=== PATIENT | female | born 1965 | race Caucasian/White ===

== ENCOUNTER 2017-08-19 16:05 | Emergency (ER) | payer MEDICAID, SELFPAY ==
[2017-08-19 16:07] VITALS: BP 115/86; PULSE 101; RESP 16; TEMP 36.9; O2SAT 99; BMI 28.6
--- NOTE | 2017-08-19 17:08 | ED.VISSUMM ---
- ER Visit Summary Date of Service: 08/19/17 Chief Complaint: Acute on chronic abdominal pain History of Present Illness: The patient is a 52 F hx of nonalcoholic liver cirrhosis stage IV patient is currently on the [place] transplant list. He states the last week she has had intermittent abdominal pain. She said started when she was down [place] being evaluated for the transplant getting screening labs. Said they are pushing on her abdomen she developed pain since that time for the last week. Associated nausea. She denies any vomiting. Denies diarrhea or melena. Denies fever. Denies any abdominal trauma. She has a history of constipation but says he had a bowel movement yesterday and is currently on medications to correct constipation. She denies any dysuria. Physical Examination: Appearing middle-aged female. Vital signs are stable afebrile. She does not look septic toxic. She is in no acute distress. H EENT exam is unremarkable. Neck nontender no lymphadenopathy. Lungs clear to auscultation bilaterally. Heart regular rate and rhythm no murmur. Abdomen is soft. Nontender nondistended no giving or masses. Normal bowel sounds no peritoneal signs. Moving all 4 extremities. Neurovascular intact. Back exam nontender. Neurologic exam unremarkable. Test Results: BC normal with a white count 6 except for platelet count of 84,000 which is her baseline she is chronic low platelets. Electro lites unremarkable. Normal BUN and creatinine and gap. Liver enzymes unremarkable total bilirubin 1.2. Normal lipase. UA negative. Emergency Department Course and Treatment: Patient complaining of abdominal pain with a very benign exam. She requested something for pain should be given 6 of morphine IV and 4 Zofran. Labs will be obtained. Treatment Plan: Exam at 2019 patient is doing well. Abdomen is benign. She will be discharged home. Explained to her I do not have a specific cause for her abdominal pain. I do not feel she needs any imaging. She has had recent CTs were unremarkable. Disposition: discharge Impression: Acute abdominal pain uncertain etiology History of nonalcoholic liver cirrhosis Chronic Thrombocytopenia This note was generated with [employer] dictation software. It may contain incorrect words, spelling, and punctuation that were not noted in review of the chart prior to signing ED Disposition - Plan for ED Patient: Chief Complaint: Abd Pain Referrals: Anna Meza NP-C [Primary Care Provider] -
--- NOTE | 2017-08-19 17:11 | ED.DCSUM_ITS ---
- ER Visit Summary Date of Service: 08/19/17 Chief Complaint: Acute on chronic abdominal pain History of Present Illness: The patient is a 52 F hx of nonalcoholic liver cirrhosis stage IV patient is currently on the [place] transplant list. He states the last week she has had intermittent abdominal pain. She said started when she was down [place] being evaluated for the transplant getting screening labs. Said they are pushing on her abdomen she developed pain since that time for the last week. Associated nausea. She denies any vomiting. Denies diarrhea or melena. Denies fever. Denies any abdominal trauma. She has a history of constipation but says he had a bowel movement yesterday and is currently on medications to correct constipation. She denies any dysuria. Physical Examination: Appearing middle-aged female. Vital signs are stable afebrile. She does not look septic toxic. She is in no acute distress. H EENT exam is unremarkable. Neck nontender no lymphadenopathy. Lungs clear to auscultation bilaterally. Heart regular rate and rhythm no murmur. Abdomen is soft. Nontender nondistended no giving or masses. Normal bowel sounds no peritoneal signs. Moving all 4 extremities. Neurovascular intact. Back exam nontender. Neurologic exam unremarkable. Test Results: BC normal with a white count 6 except for platelet count of 84, 000 which is her baseline she is chronic low platelets. Electro lites unremarkable. Normal BUN and creatinine and gap. Liver enzymes unremarkable total bilirubin 1.2. Normal lipase. UA negative. Emergency Department Course and Treatment: Patient complaining of abdominal pain with a very benign exam. She requested something for pain should be given 6 of morphine IV and 4 Zofran. Labs will be obtained. Treatment Plan: Exam at 2019 patient is doing well. Abdomen is benign. She will be discharged home. Explained to her I do not have a specific cause for her abdominal pain. I do not feel she needs any imaging. She has had recent CTs were unremarkable. Disposition: discharge Impression: Acute abdominal pain uncertain etiology History of nonalcoholic liver cirrhosis Chronic Thrombocytopenia This note was generated with [employer] dictation software. It may contain incorrect words, spelling, and punctuation that were not noted in review of the chart prior to signing ED Disposition - Plan for ED Patient: Chief Complaint: Abd Pain Referrals: Anna Meza NP-C [Primary Care Provider] -
[2017-08-19] MEDS: Ondansetron 4 MG/2 ML Vial IV (17:30)
[2017-08-19 17:35] LABS: Absolute Lymphocyte Count 1.96 X10^3/ul (0.83-4.51); Absolute Neutrophil Count 4.1 X10^3/uL (2.0-7.7); Basophil# 0.02 X10^3/uL; Basophil% 0.3 % (0-1); Eosinophil# 0.06 X10^3/uL; Eosinophils% 0.9 % (0-5); Hematocrit 43.2 % (37-47); Hemoglobin 15.1 g/dl (12.0-15.0); Lymphocyte # 1.96 X10^3/ul (4.0); Lymphocyte % 29.4 % (19-41); Mean Corpuscular Hgb 30.4 pg (27.0-32.0); Mean Corpuscular Volume 86.9 fL (81-99); Mean Platelet Vol. 10.2 fl (6.2-12.0); Monocyte# 0.47 X10^3/uL; Monocyte% 7.1 % (0-10); Neutrophil # 4.14 X10^3/uL (2.7-7.7); Neutrophil % 62.1 % (47-70); Platelet Count 84 K/mm3 (150-450); RBC Distribution Width CV 13.3 % (11.6-14.6); Red Blood Count 4.97 M/mm3 (4.2-5.4); White Blood Count 6.7 K/mm3 (4.4-11.0)
[2017-08-19 17:39] LABS: POSITIVE COUNT NO; POSITIVE DIFFERENTIAL NO; POSITIVE MORPHOLOGY NO
[2017-08-19 17:48] LABS: AST(SGOT) 38 U/L (15-37); Alanine Aminotransfer ALT/SGPT 32 U/L (13-56); Albumin, Serum 3.9 g/dL (3.2-5.0); Alkaline Phosphatase 140 U/L (45-117); Anion Gap 7 (5-15); BUN 4 mg/dL (7-18); BUN/Creat Ratio 7.6 RATIO (10-20); Bilirubin, Direct 0.33 mg/dL (0.00-0.30); Calcium,Total 8.6 mg/dL (8.5-10.1); Chloride 109 mmol/L (98-107); Creatinine, Serum 0.53 mg/dL (0.55-1.02); EST Glomerular Filtration Rate 131 mL/min (>60); Est Glom Filt Rate - Afr Amer 158 mL/min (>60); Estimated Creatinine Clearance 109.66 ml/min; Glucose 81 mg/dL (74-106); Lipase 100 U/L (73-393); Potassium 3.6 mmol/L (3.5-5.1); Protein, Total 7.9 g/dL (6.4-8.2); Sodium Level 142 mmol/L (136-145)
[2017-08-19 17:49] LABS: Bacteria 0 SEEN /hpf (None Seen); Mucous, Urine 0 SEEN /hpf (<or=2+); Red Blood Cells-Urine 0 SEEN /hpf (0-5); White Blood Cells 0 SEEN /hpf (0-5)
[2017-08-19 17:51] LABS: Color, Urine Yellow (Yellow); Glucose, Dipstick Normal (Normal); Ketone-Dipstick Negative (Negative); Leukocyte Esterase-Dipstick Negative /ul (Negative); Nitrite-Dipstick Negative (Negative); Occult Blood-Urine 50 /ul (Negative); Protein-Dipstick Negative (Negative); Specific Gravity, Urine 1.005 (1.002-1.030); Urine Bilirubin Dipstick Negative (Negative); Urine Clarity Clear (Clear); Urine Urobilinogen Normal (Normal)
[2017-08-19 18:21] LABS: Squamous Epithelial Cells - UA 0-5 SEEN /hpf (5-10)
[2017-08-19 19:27] VITALS: BP 126/75; PULSE 100; RESP 18; O2SAT 94
--- NOTE | 2017-08-19 20:22 | DCINST.ED_ITS ---
ED Disposition - Plan for ED Patient: Disposition: Home or Assisted Living Chief Complaint: Abd Pain Instructions: ED Abdominal Pain Unkn Cause Referrals: Anna Meza CELL COVERER-C [Primary Care Provider] - 3-5 Days if not improving
[2017-08-19 20:26] VITALS: BP 113/74; PULSE 95; RESP 18; O2SAT 99
== END 2017-08-19 20:27 | disposition home or self-care (01) ==
PROVIDERS: Emergency Provider Emergency Medicine; Family Provider Nurse Practitioner Primary Care; PCP Nurse Practitioner Primary Care
DX: R10.9 Unspecified abdominal pain (principal); K74.60 Unspecified cirrhosis of liver; D69.6 Thrombocytopenia, unspecified; K59.00 Constipation, unspecified; G40.909 Epilepsy, unspecified, not intractable, without status epilepticus; Z90.49 Acquired absence of other specified parts of digestive tract; Z90.710 Acquired absence of both cervix and uterus; Z79.899 Other long term (current) drug therapy
CPT/HCPCS: 80048; 80076; 81001; 83690; 85025; 96374; 96375; 99283; A4216; J2405

== ENCOUNTER → 2017-08-27 14:53 | Outpatient (CLI) | payer MEDICAID, SELFPAY | PROVIDERS: Family Provider Nurse Practitioner Primary Care; PCP Nurse Practitioner Primary Care | DX: K74.60 Unspecified cirrhosis of liver (principal) | CPT/HCPCS: 36415; 82140 ==

== ENCOUNTER 2017-08-29 17:46 | Inpatient (IN) | payer MEDICAID, SELFPAY ==
[2017-08-29 17:47] VITALS: BP 139/85; PULSE 94; RESP 18; TEMP 36.8; O2SAT 96; BMI 29.5
--- NOTE | 2017-08-29 19:26 | EKG12_ITS ---
Test Reason : ABNORMAL LABS Blood Pressure : / mmHG Vent. Rate : 087 BPM Atrial Rate : 087 BPM P-R Int : 160 ms QRS Dur : 084 ms QT Int : 392 ms P-R-T Axes : 046 -14 033 degrees QTc Int : 471 ms Normal sinus rhythm Inferior infarct , age undetermined Anterolateral infarct , age undetermined Abnormal ECG Confirmed by NELLY HERRERA ([id number]), commissioning editor JOSH CHACKO ([id number] on 09/01/2017 1:30:13 PM Referred By: GLEN KELLER Confirmed By:NELLY HERRERA
--- NOTE | 2017-08-29 19:28 | ED.VISSUMM ---
- ER Visit Summary Date of Service: 08/29/17 Chief Complaint: Confusion History of Present Illness: The patient is a 52 F presenting with confusion, generalized weakness, abnormal ammonia level. Patient states she has been having confusion for the past week. She was on the phone with her neurologist and they recommended an ammonia level. This was drawn yesterday and was elevated. She is on a liver transplant list in [place] for nonalcoholic cirrhosis. She is on lactulose at home. Denies fever. She complains of right upper quadrant abdominal pain and nausea. She states she had blood in her stool yesterday. Physical Examination: Vitals are stable. Patient is afebrile. Alert no acute distress. HEENT exam is unremarkable. Neck is supple. Lungs are clear and equal bilaterally. Heart is regular rate and rhythm. Abdomen is soft nontender nondistended. No rebound or guarding Extremities are unremarkable. Skin is warm and dry. No focal neurologic deficit. Remainder of exam is unremarkable. Emergency Department Course and Treatment: EKG is sinus rhythm rate of 87. CBC is normal except platelets 61. Chemistries normal except for sodium 146, glucose 140. Alk phos 143. INR is 1.4. Ammonia level 104. Tegretol level 7.9. Patient is given morphine Zofran with improvement of her pain. Chest x-ray shows no acute process. She was given lactulose. Discussed with Dr. Valentine for admission. Disposition: Admission Impression: Hepatic encephalopathy This note was generated with [employer] dictation software. It may contain incorrect words, spelling, and punctuation that were not noted in review of the chart prior to signing ED Disposition - Plan for ED Patient: Chief Complaint: Abn Labs Referrals: Anna Meza NP-C [Primary Care Provider] -
--- NOTE | 2017-08-29 19:33 | RAD_ITS ---
STUDY: X-RAY CHEST REASON FOR EXAM: Female, 52 years old. Abdominal pain. TECHNIQUE: Single AP portable view of the chest. COMPARISON: 06/20/2017. FINDINGS: The lungs are clear and expanded. There is no demonstrated pleural abnormality. Normal size heart. Normal mediastinum and erin. Normal visualized pulmonary arteries. Normal visualized aortic arch and descending thoracic aorta. Normal visualized thoracic spine. Normal visualized ribs, clavicles, and shoulders. There is no demonstrated abnormality of the visualized soft tissue structures of the upper abdomen. RAD/Chest 1 View (Portable) IMPRESSION: Normal x-ray examination of the chest. Electronically Signed: Herve Henriquez MD at 19:51 EDT , Service support ,
[2017-08-29 19:47] LABS: Mucous, Urine 0 SEEN /hpf (<or=2+); Red Blood Cells-Urine 0 SEEN /hpf (0-5); White Blood Cells 0 SEEN /hpf (0-5)
[2017-08-29 19:54] LABS: Absolute Lymphocyte Count 1.31 X10^3/ul (0.83-4.51); Absolute Neutrophil Count 3.1 X10^3/uL (2.0-7.7); Basophil# 0.02 X10^3/uL; Basophil% 0.4 % (0-1); Eosinophil# 0.08 X10^3/uL; Eosinophils% 1.7 % (0-5); Hematocrit 40.6 % (37-47); Lymphocyte # 1.31 X10^3/ul (4.0); Lymphocyte % 27.2 % (19-41); Mean Corp Hgb Conc 34.5 g/gl (32-36); Mean Corpuscular Hgb 30.4 pg (27.0-32.0); Mean Corpuscular Volume 88.3 fL (81-99); Mean Platelet Vol. 10.5 fl (6.2-12.0); Monocyte# 0.31 X10^3/uL; Monocyte% 6.4 % (0-10); Neutrophil # 3.09 X10^3/uL (2.7-7.7); Neutrophil % 64.1 % (47-70); POSITIVE COUNT NO; POSITIVE DIFFERENTIAL NO; POSITIVE MORPHOLOGY NO; Platelet Count 61 K/mm3 (150-450); RBC Distribution Width CV 13.2 % (11.6-14.6); RBC Distribution Width SD 42.3 fl (35.1-43.9); White Blood Count 4.8 K/mm3 (4.4-11.0)
[2017-08-29 20:02] LABS: International Normalized Ratio 1.4; Prothrombin Time (Protime)PT. 17.1 SECONDS (11.7-14.9)
[2017-08-29 20:04] LABS: Color, Urine Yellow (Yellow); Glucose, Dipstick Normal (Normal); Ketone-Dipstick Negative (Negative); Leukocyte Esterase-Dipstick Negative /ul (Negative); Nitrite-Dipstick Negative (Negative); Occult Blood-Urine Negative /ul (Negative); Protein-Dipstick Negative (Negative); Specific Gravity, Urine 1.015 (1.002-1.030); Urine Bilirubin Dipstick Negative (Negative); Urine Clarity Sl. Cloudy (Clear); Urine Urobilinogen 4 mg/dl (Normal)
[2017-08-29 20:07] LABS: AST(SGOT) 34 U/L (15-37); Alanine Aminotransfer ALT/SGPT 29 U/L (13-56); Albumin, Serum 3.4 g/dL (3.2-5.0); Alkaline Phosphatase 143 U/L (45-117); Anion Gap 7 (5-15); BUN 5 mg/dL (7-18); BUN/Creat Ratio 6.1 RATIO (10-20); Bilirubin, Direct 0.23 mg/dL (0.00-0.30); Calcium,Total 8.2 mg/dL (8.5-10.1); Chloride 112 mmol/L (98-107); Creatinine, Serum 0.82 mg/dL (0.55-1.02); EST Glomerular Filtration Rate 78 mL/min (>60); Est Glom Filt Rate - Afr Amer 94 mL/min (>60); Estimated Creatinine Clearance 70.88 ml/min; Globulin 3.7 g/dL (2.2-4.2); Glucose 140 mg/dL (74-106); Protein, Total 7.1 g/dL (6.4-8.2); Sodium Level 146 mmol/L (136-145)
[2017-08-29 20:18] LABS: Carbamazepine (Tegretol) 7.9 ug/mL (4.0-12.0)
[2017-08-29 20:30] VITALS: BP 116/71; PULSE 91; O2SAT 94
[2017-08-29 20:54] LABS: Amorphous Sediment 1+; Bacteria RARE /hpf (None Seen); Squamous Epithelial Cells - UA 0-5 SEEN /hpf (5-10)
[2017-08-29 21:02] VITALS: BP 122/78; PULSE 88; RESP 18; TEMP 37.2; O2SAT 94
[2017-08-29] MEDS: Lactulose 20 GM/30 ML UDC PO (21:20)
--- NOTE | 2017-08-29 21:35 | PCM.HP.STD ---
Problem List (1) MARMOLEJO (nonalcoholic steatohepatitis) Status: Chronic (2) Hepatic encephalopathy Status: Acute (3) Migraine Status: Chronic Qualifiers: Migraine type: unspecified Status migrainosus presence: without status migrainosus Intractability: not intractable Qualified Code(s): G43.909 - Migraine, unspecified, not intractable, without status migrainosus (4) Asthma Status: Chronic Qualifiers: Asthma severity: mild Asthma persistence: intermittent Asthma complication type: unspecified Qualified Code(s): J45.20 - Mild intermittent asthma, uncomplicated (5) Hiatal hernia Status: Chronic (6) Esophageal varices Status: Chronic Qualifiers: Esophageal varices type: unspecified type Esophageal varices bleeding: without bleeding Qualified Code(s): I85.00 - Esophageal varices without bleeding Comment: numerous banding (7) Seizures Status: Chronic Comment: last known 11/2016 History of Present Illness Date of Admission: 08/29/17 Chief Complaint: Intermittent confusion, fatigue, malaise. The patient is a 52 y/o F w/ PMHx: Migraines, MARMOLEJO w/ Cirrhosis currently on the transplant list, Esophageal Varices, Chronic Thrombocytopenia secondary to her liver disease, Seizure disorder, Asthma who presents to the [facility] ED on 08/29/17 with history of ongoing acute on chronic RUQ pain, fatigue, malaise, confusion intermittently over the last week, but not improving. She notes recently decreased intake, poor po. She notes over the 2 days BM x 2 per day but sometimes she has had no bowel movement she notes. She notes having been evaluated in the ED but sent home and notes no ammonia was performed at that time and upon follow-up with her physicians they recommended repeat evaluation and NH level. In the ED work-up included T 98.2, HR 94, BP 139/85, RR 18, 96% on RA, CBC w/ WBC 4.8, Hgb 14, Plts 61 without shift, PT 17.1, INR 1.4, BMP w/ Na 146, Chl 112, glucose 140, Alk phos 143, NH 104 (prior baseline 40-60s from records), CXR without acute process. In the ED patient administered NS, morphine, lactulose. Past Medical History Past Medical History (Chronic Problems): Chronic Problems MARMOLEJO (nonalcoholic steatohepatitis) (Chronic) Migraine (Chronic) Asthma (Chronic) Hiatal hernia (Chronic) Esophageal varices (Chronic) numerous banding Seizures (Chronic) last known 11/2016 Allergies diphenhydramine HCl [From Benadryl] Adverse Reaction (Verified 08/29/17 17:49) Other [place] lorazepam [From Ativan] Adverse Reaction (Verified 08/29/17 17:49) Other SHE FEELS LIKE SHE WANTS TO [place]IM[place] prednisone Adverse Reaction (Verified 08/29/17 17:49) Other prochlorperazine edisylate [From Compazine] Adverse Reaction (Verified 08/29/17 17:49) Other [place] prochlorperazine maleate [From Compazine] Adverse Reaction (Verified 08/29/17 17:49) Other CLIMB OUT OF MY BODY promethazine HCl [From Phenergan] Adverse Reaction (Verified 08/29/17 17:49) Other [place] topiramate [From Topamax] Adverse Reaction (Verified 08/29/17 17:49) Other tramadol Adverse Reaction (Verified 08/29/17 17:49) Other feels like going to climb rose Home Medications: Ambulatory Orders Medication Instructions Recorded Carbamazepine 200 mg PO BID 12/27/14 Ondansetron [Zofran Odt] 4 mg PO Q8H PRN PRN 12/27/14 Sumatriptan Succinate [Imitrex] 100 mg PO BID PRN PRN 15 Citalopram [Celexa] 40 mg PO DAILY 07/29/16 Albuterol Sulfate [Proventil Hfa] 1 - 2 puff IH Q2H PRN PRN 01/17/17 Mometasone/Formoterol [Dulera 200 2 puff INHALATION QHS 01/17/17 Mcg/5 Mcg Inhaler] Rifaximin [Xifaxan] 550 mg PO DAILY 05/04/17 Lactulose [Chronulac] 30 ml PO BID 06/20/17 Temazepam [Restoril] 15 mg PO QHS PRN PRN #30 capsule 06/25/17 Clonazepam [Klonopin] 2 mg PO BID 08/19/17 Linacolotide [Linzess] 145 mcg PO DAILY 08/29/17 Omeprazole [Prilosec] 20 mg PO DAILY 03/16/18 Surgical History: - - cholecystectomy, partial hysterectomy, right shoulder replacement secondary to fall secondary to seizure, bilateral knee arthroscopic Psychiatric History: Anxiety, Depression [employer]ED [employer] GRADER History: No pertinent [employer]ESS[employer] POUL[employer] GRADER history Lives: Spouse/ Significant Other Smoking Status: Never smoker Tobacco Use: Non-smoker Alcohol: None Drugs: None - *Family History Maternal History Items: No pertinent history Paternal History Items: - - Liver disease, alcoholism Review of Systems Constitutional: Reports: Anorexia, Malaise, Weakness, Fatigue. Denies: Chills, Fever, Weight Change HEENT: Denies: Head Aches, Sinus Congestion, Sinus Drainage Cardiovascular: Denies: Chest Pain, Palpitations Respiratory: Denies: Cough, Shortness of breath at rest, Sputum production Gastrointestinal: Reports: Abdominal Pain, Constipation, Nausea. Denies: Vomiting Genitourinary: Denies: Dysuria Musculoskeletal: Reports: Back Pain. Denies: Joint Pain, Joint Tenderness Skin: Denies: Rash, Wounds Neurological: Reports: Confusion. Denies: Focal weakness, Numbness, Tingling Psychiatric: Denies: Anxiety, Depression, Homicidal Ideations, Suicidal Ideations Hematologic/ Lymphatic: Reports: Anemia, Easy Bruising, Easy Bleeding VTE Information - Inpt Only VTE Present on Admission: No VTE Mechan Device Prophylaxis: SCD's VTE Pharm Prophylaxis ordered?: No Reason prophylaxis not ordered:: Medical Contraindication Subjective: Seated upright in the ED bed, NAD, notes fatigued. Objective: Physical Examination: General: awake, alert, oriented to self, place, recent events but notes has been intermittently confused, cooperative, seated upright in bed in no apparent distress, fatigued appearance. Skin: normal color, turgor, no icterus, cyanosis. HEENT: AT/NC, EOMI, PERRLA, dry MM, no carotid bruits or JVD noted. Lungs: CTA bilaterally, moderate effort, mild decrease BL bases, no rales, ronchi or wheezing. Heart: Regular rate and rhythm; no gallop, rub audible. Abdomen: soft, mild RUQ TTP w/ deep palpation, no rebound or guarding, ND, mildly hyperative BS, + HSM. Extremities: no cyanosis, clubbing, or edema. Neurological: patient awake, alert, oriented as noted; cognitive function appears intact, but from description decreased from baseline; pupils equally reactive to light and accomodation; cranial nerves II-XII grossly normal, moving all 4 extremities, no focal deficits, strength moderately globally decreased. Psychiatric: affect appears fatigued, no acute evidence of depressive or anxiety feelings. - Physical Exam Vital Signs Temp Pulse Resp BP Pulse Ox 99.0 F 88 18 122/78 H 94 08/29/17 21:02 08/29/17 21:02 08/29/17 21:02 08/29/17 21:02 08/29/17 21:02 Oxygen Delivery Method Room Air Weight: 171 lb 11.841 oz Body Mass Index (BMI) 29.5 Microbiology Past 72 Hours 08/29/17 20:40 Stool Occult Blood (PINO) - Final Stool Laboratory Tests Past 24 Hrs 08/29/17 08/29/17 08/29/17 19:12 19:45 19:45 WBC 4.8 RBC 4.60 Hgb 14.0 Hct 40.6 MCV 88.3 MCH 30.4 MCHC 34.5 RDW 13.2 RDW Differential 42.3 Plt Count 61 L MPV 10.5 Immature Gran % (Auto) 0.200 Neut % (Auto) 64.1 Lymph % (Auto) 27.2 [place] % (Auto) 6.4 Eos % (Auto) 1.7 Baso % (Auto) 0.4 Absolute Neuts (auto) 3.1 Absolute Lymphs (auto) 1.31 Total Counted Not Reportable PT 17.1 H INR 1.4 Sodium Potassium Chloride Carbon Dioxide Anion Gap BUN Creatinine Estim Creat Clear Calc Est GFR (MDRD) Af Amer Est GFR (MDRD) Non-Af BUN/Creatinine Ratio Glucose Calcium Total Bilirubin Direct Bilirubin AST ALT Alkaline Phosphatase Ammonia Total Protein Albumin Globulin Urine Color Yellow Urine Clarity Sl. Cloudy Urine pH 8.0 Ur Specific [place] 1.015 Urine Protein Negative Urine Glucose (UA) Normal Urine Ketones Negative Urine Occult Blood Negative Urine Nitrite Negative Urine Bilirubin Negative Urine Urobilinogen 4 H Ur Leukocyte Esterase Negative Urine RBC 0 SEEN Urine WBC 0 SEEN Ur Squamous Epith Cells 0-5 SEEN Amorphous Sediment 1+ Urine Bacteria RARE Urine Mucus 0 SEEN Carbamazepine 08/29/17 08/29/17 08/29/17 19:45 19:45 19:45 WBC RBC Hgb Hct MCV MCH MCHC RDW RDW Differential Plt Count MPV Immature Gran % (Auto) Neut % (Auto) Lymph % (Auto) [place] % (Auto) Eos % (Auto) Baso % (Auto) Absolute Neuts (auto) Absolute Lymphs (auto) Total Counted PT INR Sodium 146 H Potassium 4.0 Chloride 112 H Carbon Dioxide 27.0 Anion Gap 7 BUN 5 L Creatinine 0.82 Estim Creat Clear Calc 70.88 Est GFR (MDRD) Af Amer 94 Est GFR (MDRD) Non-Af 78 BUN/Creatinine Ratio 6.1 L Glucose 140 H Calcium 8.2 L Total Bilirubin 0.90 Direct Bilirubin 0.23 AST 34 ALT 29 Alkaline Phosphatase 143 H Ammonia 104.0 H Total Protein 7.1 Albumin 3.4 Globulin 3.7 Urine Color Urine Clarity Urine pH Ur Specific [place] Urine Protein Urine Glucose (UA) Urine Ketones Urine Occult Blood Urine Nitrite Urine Bilirubin Urine Urobilinogen Ur Leukocyte Esterase Urine RBC Urine WBC Ur Squamous Epith Cells Amorphous Sediment Urine Bacteria Urine Mucus Carbamazepine 7.9 Assessment/Plan The patient is a 52 y/o F w/ PMHx: Migraines, MARMOLEJO w/ Cirrhosis currently on the transplant list, Esophageal Varices, Chronic Thrombocytopenia secondary to her liver disease, Seizure disorder, Asthma who presents to the [facility] ED on 08/29/17 with history of ongoing acute on chronic RUQ pain, fatigue, malaise, confusion intermittently over the last week, but not improving. She notes recently decreased intake, poor oral intake. (1) Hepatic encephalopathy: In the ED work-up included T 98.2, HR 94, BP 139/85, RR 18, 96% on RA, CBC w/ WBC 4.8, Hgb 14, Plts 61 without shift, PT 17.1, INR 1.4, BMP w/ Na 146, Chl 112, glucose 140, Alk phos 143, NH 104 (prior baseline 40-60s from records), CXR without acute process. In the ED patient administered NS, morphine, lactulose. Will admit to [facility], maintain on IVFs, encourage appropriate oral intake, administer aggressive lactulose 30 gm q 6 hours with continued linzess, trend CMP, NH level, maintain on fall precautions, continue home regimen xifaxan. (2) MARMOLEJO, Cirrhosis w/ Hx Esophageal varices: Currently on the Transplant list, following with GI in [place], encouraged continued close evaluation with her team. Chronic ongoing RUQ pain, similar to baseline. Continue treatment #1 as noted. (3) Seizure disorder: Continue home carbamazepine regimen. (4) Chronic Asthma: ATC duonebs, PRN albuterol, HOB, IS parameters. (5) Chronic Thrombocytopenia: Admission CBC w/ plts 61, stable, defer chemoprophylaxis. (6) GERD: PPI. (7) DVT Prophylaxis: SCDs, defer chemoprophylaxis given liver disease w/ low plts. Code Visit Inpatient E&M: 53208 Init Hosp L3
[2017-08-29 22:31] VITALS: BMI 28.3
[2017-08-29 22:59] VITALS: BMI 28.3
[2017-08-29 23:06] LABS: Magnesium 2.1 mg/dL (1.6-2.6); Phosphorus 3.2 mg/dL (2.5-4.9)
[2017-08-29 23:34] VITALS: BP 123/70; PULSE 81; RESP 18; TEMP 36.8; O2SAT 97
[2017-08-29] MEDS: 0.9% Normal Saline 1,000 ML 100 ML IV (23:51)
[2017-08-29] MEDS: Ondansetron 4 MG/2 ML Vial IV (23:52)
[2017-08-29] MEDS: clonazePAM 1 MG Tablet 2 MG PO (23:52)
[2017-08-29] MEDS: carBAMazepine 200 MG Tablet PO (23:53)
[2017-08-29] MEDS: Citalopram 40 MG TABLET PO (23:53)
[2017-08-29] MEDS: rifAXIMin 550 MG Tablet PO (23:53)
[2017-08-30] VITALS (15 sets, daily range): BP systolic 112–129; BP diastolic 65–78; PULSE 56–103; RESP 16–29; TEMP 36.7–37.1; O2SAT 94–98
[2017-08-30] MEDS: Pantoprazole Sodium 20 MG Tablet PO ×2 (00:33→20:52)
[2017-08-30] MEDS: Rizatriptan Benzoate 10 MG Tablet PO (04:57)
[2017-08-30] MEDS: Lactulose 20 GM/30 ML UDC 30 GM PO ×4 (05:52→23:57)
[2017-08-30 06:48] LABS: Absolute Neutrophil Count 3.9 X10^3/uL (2.0-7.7); Basophil# 0.03 X10^3/uL; Basophil% 0.5 % (0-1); Eosinophil# 0.08 X10^3/uL; Eosinophils% 1.4 % (0-5); Hematocrit 39.4 % (37-47); Hemoglobin 13.6 g/dl (12.0-15.0); Lymphocyte % 23.7 % (19-41); Mean Corp Hgb Conc 34.5 g/gl (32-36); Mean Corpuscular Hgb 30.6 pg (27.0-32.0); Mean Corpuscular Volume 88.5 fL (81-99); Mean Platelet Vol. 10.1 fl (6.2-12.0); Monocyte# 0.49 X10^3/uL; Monocyte% 8.3 % (0-10); Neutrophil % 66.1 % (47-70); POSITIVE COUNT NO; POSITIVE DIFFERENTIAL NO; POSITIVE MORPHOLOGY NO; Platelet Count 66 K/mm3 (150-450); RBC Distribution Width CV 13.1 % (11.6-14.6); Red Blood Count 4.45 M/mm3 (4.2-5.4); White Blood Count 5.9 K/mm3 (4.4-11.0)
[2017-08-30 07:11] LABS: ALB/GLOB Ratio 0.9 RATIO (0.9-2.4); AST(SGOT) 44 U/L (15-37); Alanine Aminotransfer ALT/SGPT 31 U/L (13-56); Albumin, Serum 3.1 g/dL (3.2-5.0); Alkaline Phosphatase 126 U/L (45-117); Anion Gap 7 (5-15); BUN 4 mg/dL (7-18); BUN/Creat Ratio 6.9 RATIO (10-20); Calcium,Total 7.9 mg/dL (8.5-10.1); Chloride 109 mmol/L (98-107); Creatinine, Serum 0.58 mg/dL (0.55-1.02); EST Glomerular Filtration Rate 117 mL/min (>60); Est Glom Filt Rate - Afr Amer 142 mL/min (>60); Globulin 3.4 g/dL (2.2-4.2); Glucose 117 mg/dL (74-106); Potassium 3.7 mmol/L (3.5-5.1); Protein, Total 6.5 g/dL (6.4-8.2); Sodium Level 142 mmol/L (136-145)
[2017-08-30] MEDS: Ondansetron 4 MG/2 ML Vial IV (07:33)
[2017-08-30] MEDS: HYDROcodone Bitartrate/Apap 5/325 Tablet PO ×2 (10:23→16:44)
[2017-08-30] MEDS: clonazePAM 1 MG Tablet 2 MG PO (10:26)
[2017-08-30] MEDS: 0.9% Normal Saline 1,000 ML 100 ML IV ×2 (10:28→20:14)
--- NOTE | 2017-08-30 10:39 | CASEMGMT ---
See RN CM Assessment Link. DC Plan Home. Miquel CLEMENTN RN ACM
--- NOTE | 2017-08-30 12:59 | CASEMGMT ---
SW received a referral to see patient for mental health resources. SW stopped by to see patient and she was sleeping. She did not wake when her name was called. SW will stop by again later as time allows. Belkis ARROYO MSW
[2017-08-30] MEDS: Ipratropium/Albuterol Sulfate 3 ML AMPUL.NEB INHALATION ×2 (13:20→19:50)
--- NOTE | 2017-08-30 15:36 | CASEMGMT ---
SW met with patient. Introduced self and role at [facility]. SW spent an extensive amount of time in room with patient listening and providing emotional support and encouragement. Belkis ARROYO MSW
--- NOTE | 2017-08-30 18:06 | PCM.PROGNOTE ---
Subjective: She is c/o persisting headache and abdominal pain. She states that she had no bowel movements for past 3 days, and had not had bms so far. She is also c/o persisting headache. - Physical Exam General: Alert, Oriented x3, Cooperative HEENT: Atraumatic, PERRLA, Normocephalic Oral: Moist Mucosa, No Gingival or Mucosal Lesions/ Ulcerations, - - ?geographic tongue. Neck: Supple, No JVD Lungs: Clear to auscultation, Normal air movement, No rhonchi, No wheeze, No rales Cardiovascular: Regular rate, Regular Rhythm, Normal S1, Normal S2, No murmurs, No Ectopic Activity Abdomen: Bowel Sounds Present, Soft, Non Tender, Non-Distended, No Hepato-splenomegaly Extremities: No clubbing, No cyanosis, No edema Skin: No rashes, No breakdown Musculoskeletal: No Tenderness to Palpation of Joints or Extremities, No Muscle Wasting Lymphatic: No Cervical, Supraclavicular, or Inguinal Adenopathy Neurological: Cranial nerves II-XII grossly intact, Neuro grossly intact Psych/Mental Status: Normal Affect Vital Signs Temp Pulse Resp BP Pulse Ox 98.0 F 98 17 113/65 95 08/30/17 13:09 08/30/17 16:37 08/30/17 13:39 08/30/17 13:09 08/30/17 13:09 Oxygen Delivery Method Room Air Weight: 154 lb 5.177 oz Body Mass Index (BMI) 28.3 Intake and Output for Last 24 Hours 08/28/17 08/29/17 08/30/17 23:59 23:59 23:59 Intake Total 2870 / 2870 Balance 2870 / 2870 Laboratory Tests Past 24 Hrs 08/30/17 08/30/17 08/30/17 06:35 06:35 06:35 WBC 5.9 RBC 4.45 Hgb 13.6 Hct 39.4 MCV 88.5 MCH 30.6 MCHC 34.5 RDW 13.1 RDW Differential 42.0 Plt Count 66 L MPV 10.1 Immature Gran % (Auto) 0.000 Neut % (Auto) 66.1 Lymph % (Auto) 23.7 [place] % (Auto) 8.3 Eos % (Auto) 1.4 Baso % (Auto) 0.5 Absolute Neuts (auto) 3.9 Absolute Lymphs (auto) 1.40 Total Counted Not Reportable Sodium 142 Potassium 3.7 Chloride 109 H Carbon Dioxide 26.0 Anion Gap 7 BUN 4 L Creatinine 0.58 Estim Creat Clear Calc 100.20 Est GFR (MDRD) Af Amer 142 Est GFR (MDRD) Non-Af 117 BUN/Creatinine Ratio 6.9 L Glucose 117 H Calcium 7.9 L Total Bilirubin 0.90 AST 44 H ALT 31 Alkaline Phosphatase 126 H Ammonia 65.0 H Total Protein 6.5 Albumin 3.1 L Globulin 3.4 Albumin/Globulin Ratio 0.9 Diagnostic Data Chest X-Ray 08/29/17 19:33 IMPRESSION: Normal x-ray examination of the chest. Electronically Signed: Herve Henriquez MD at 19:51 EDT , Service support , Medical Necessity - Tobacco Use Smoking Status: Never smoker Tobacco Use: Non-smoker Assessment/Plan Patient is a 52 years old female with history of MARMOLEJO with cirrhosis, currently on the transplant list, presents with persisting lethargy and confusion for one week. Ammonia level was 104, where her baseline is around 60. She states that she has been eating fair, but no bowel movements since 08/28. She had hematochezia on the day, which was her last bowel movement. Hgb is stable, and did not have any more episodes of hematochezia. She is having persisting right upper abdominal pain for a month, and she started to have headache on the day of admission, with history of migraine. #1 Mild hepatic encephalopathy. She was on lactulose 25 gram bid, increased to Q6H. Ammonia level improved to 65 on the following day. Increase rifaximin to bid from qhs. Continue. Continue current lactulose dosage. Repeat NH4 level in AM. #2 headache with history of migraine. Maxalt was given here, with no improvement of headache. OK to continue opioid analgesics prn. Change [place] to oxycodone IR to avoid acetaminophen. #3 Cirrhosis with MARMOLEJO. She has history of esophageal varices, possibly with varices of rectum. She did not have any more bleeding episodes. Continue to monitor CBC. #4 Thrombocytopenia. With cirrhosis. Platelet stable at 60's. Continue to monitor. #5 Seizure disorder. Continue carbamazepine. #6 Abnormality of tongue. It is more consistent with geographic tongue with minimal discomfort and no signs of thrush. VTE prophylaxis: SCD only for low platelets counts. GI prophylaxis: PPI po. She is full code. Disposition: Home in 2 to 3 days. Code Visit Inpatient E&M: 12916 Subs Hosp L3
--- NOTE | 2017-08-30 18:17 | PN_ITS ---
Subjective: She is c/o persisting headache and abdominal pain. She states that she had no bowel movements for past 3 days, and had not had bms so far. She is also c/o persisting headache. - Physical Exam General: Alert, Oriented x3, Cooperative HEENT: Atraumatic, PERRLA, Normocephalic Oral: Moist Mucosa, No Gingival or Mucosal Lesions/ Ulcerations, - - ? geographic tongue. Neck: Supple, No JVD Lungs: Clear to auscultation, Normal air movement, No rhonchi, No wheeze, No rales Cardiovascular: Regular rate, Regular Rhythm, Normal S1, Normal S2, No murmurs, No Ectopic Activity Abdomen: Bowel Sounds Present, Soft, Non Tender, Non-Distended, No Hepato- splenomegaly Extremities: No clubbing, No cyanosis, No edema Skin: No rashes, No breakdown Musculoskeletal: No Tenderness to Palpation of Joints or Extremities, No Muscle Wasting Lymphatic: No Cervical, Supraclavicular, or Inguinal Adenopathy Neurological: Cranial nerves II-XII grossly intact, Neuro grossly intact Psych/Mental Status: Normal Affect Vital Signs Temp Pulse Resp BP Pulse Ox 98.0 F 98 17 113/65 95 08/30/17 13:09 08/30/17 16:37 08/30/17 13:39 08/30/17 13:09 08/30/17 13:09 Oxygen Delivery Method Room Air Weight: 154 lb 5.177 oz Body Mass Index (BMI) 28.3 Intake and Output for Last 24 Hours 08/28/17 08/29/17 08/30/17 23:59 23:59 23:59 Intake Total 2870 / 2870 Balance 2870 / 2870 Laboratory Tests Past 24 Hrs 08/30/17 08/30/17 08/30/17 06:35 06:35 06:35 WBC 5.9 RBC 4.45 Hgb 13.6 Hct 39.4 MCV 88.5 MCH 30.6 MCHC 34.5 RDW 13.1 RDW Differential 42.0 Plt Count 66 L MPV 10.1 Immature Gran % (Auto) 0.000 Neut % (Auto) 66.1 Lymph % (Auto) 23.7 [place] % (Auto) 8.3 Eos % (Auto) 1.4 Baso % (Auto) 0.5 Absolute Neuts (auto) 3.9 Absolute Lymphs (auto) 1.40 Total Counted Not Reportable Sodium 142 Potassium 3.7 Chloride 109 H Carbon Dioxide 26.0 Anion Gap 7 BUN 4 L Creatinine 0.58 Estim Creat Clear Calc 100.20 Est GFR (MDRD) Af Amer 142 Est GFR (MDRD) Non-Af 117 BUN/Creatinine Ratio 6.9 L Glucose 117 H Calcium 7.9 L Total Bilirubin 0.90 AST 44 H ALT 31 Alkaline Phosphatase 126 H Ammonia 65.0 H Total Protein 6.5 Albumin 3.1 L Globulin 3.4 Albumin/Globulin Ratio 0.9 Diagnostic Data Chest X-Ray 08/29/17 19:33 IMPRESSION: Normal x-ray examination of the chest. Electronically Signed: Herve Henriquez MD at 19:51 EDT , Service support , Medical Necessity - Tobacco Use Smoking Status: Never smoker Tobacco Use: Non-smoker Assessment/Plan Patient is a 52 years old female with history of MARMOLEJO with cirrhosis, currently on the transplant list, presents with persisting lethargy and confusion for one week. Ammonia level was 104, where her baseline is around 60. She states that she has been eating fair, but no bowel movements since . She had hematochezia on the day, which was her last bowel movement. Hgb is stable, and did not have any more episodes of hematochezia. She is having persisting right upper abdominal pain for a month, and she started to have headache on the day of admission, with history of migraine. #1 Mild hepatic encephalopathy. She was on lactulose 25 gram bid, increased to Q6H. Ammonia level improved to 65 on the following day. Increase rifaximin to bid from qhs. Continue. Continue current lactulose dosage. Repeat NH4 level in AM. #2 headache with history of migraine. Maxalt was given here, with no improvement of headache. OK to continue opioid analgesics prn. Change [place] to oxycodone IR to avoid acetaminophen. #3 Cirrhosis with MARMOLEJO. She has history of esophageal varices, possibly with varices of rectum. She did not have any more bleeding episodes. Continue to monitor CBC. #4 Thrombocytopenia. With cirrhosis. Platelet stable at 60's. Continue to monitor. #5 Seizure disorder. Continue carbamazepine. #6 Abnormality of tongue. It is more consistent with geographic tongue with minimal discomfort and no signs of thrush. VTE prophylaxis: SCD only for low platelets counts. GI prophylaxis: PPI po. She is full code. Disposition: Home in 2 to 3 days. Code Visit Inpatient E&M: 07589 Subs Hosp L3
[2017-08-30] MEDS: oxyCODONE 5 MG Tablet PO (20:50)
[2017-08-30] MEDS: rifAXIMin 550 MG Tablet PO (20:51)
[2017-08-30] MEDS: carBAMazepine 200 MG Tablet 400 MG PO (20:51)
[2017-08-30] MEDS: clonazePAM 1 MG Tablet PO (20:52)
[2017-08-30] MEDS: LINACLOTIDE 145 MCG CAPSULE PO (20:52)
[2017-08-30] MEDS: Citalopram 40 MG TABLET PO (20:54)
[2017-08-31] VITALS (12 sets, daily range): BP systolic 102–130; BP diastolic 58–68; PULSE 68–109; RESP 16–19; TEMP 36.7–37.3; O2SAT 94–97
[2017-08-31] MEDS: oxyCODONE 5 MG Tablet PO ×3 (00:43→22:50)
[2017-08-31] MEDS: Rizatriptan Benzoate 10 MG Tablet PO (02:05)
[2017-08-31] MEDS: Temazepam 15 MG Capsule PO (02:05)
--- NOTE | 2017-08-31 04:14 | EKG12_ITS ---
Test Reason : CP Blood Pressure : / mmHG Vent. Rate : 097 BPM Atrial Rate : 097 BPM P-R Int : 170 ms QRS Dur : 084 ms QT Int : 370 ms P-R-T Axes : 014 -07 024 degrees QTc Int : 469 ms Normal sinus rhythm Inferior infarct , age undetermined Abnormal ECG When compared with ECG of 31-AUG-2017 04:12, MANUAL COMPARISON REQUIRED, DATA IS UNCONFIRMED Confirmed by MOE BROOKS, SHLOMO ([id number]), international editorial producer JOSH CHACKO ([id number]) on 09/11/2017 4:00:51 PM Referred By: GLEN KELLER Confirmed By:SHLOMO ROSA MD
[2017-08-31] MEDS: 0.9% Normal Saline 1,000 ML 100 ML IV (05:19)
[2017-08-31] MEDS: rifAXIMin 550 MG Tablet PO ×2 (09:23→22:50)
[2017-08-31] MEDS: Lactulose 20 GM/30 ML UDC 30 GM PO ×2 (11:40→22:50)
[2017-08-31] MEDS: Ipratropium/Albuterol Sulfate 3 ML AMPUL.NEB INHALATION ×2 (12:03→19:08)
--- NOTE | 2017-08-31 13:06 | PCM.PROGNOTE ---
Subjective: She is c/o intractable migraine headache, behind her eyes. Analgesics and Maxalt have not been effective so far. She is also c/o palpitation, woke up during the night. EKG was done, unremarkable. She had BM's since last night. - Physical Exam General: Alert, Oriented x3 HEENT: Atraumatic, PERRLA, Normocephalic Oral: Moist Mucosa, No Gingival or Mucosal Lesions/ Ulcerations Neck: Supple, No JVD, Negative Carotid Bruits, Negative Hepatojugular Reflux, No Nodes, No Nuchal Rigidity Lungs: Clear to auscultation, Normal air movement, No rhonchi, No wheeze, No rales Cardiovascular: Regular rate, Regular Rhythm, Normal S1, Normal S2, No murmurs, No Ectopic Activity Abdomen: Bowel Sounds Present, Soft, Non Tender, Non-Distended, No Hepato-splenomegaly Extremities: No clubbing, No cyanosis, No edema Skin: No rashes, No breakdown Musculoskeletal: No Tenderness to Palpation of Joints or Extremities, No Muscle Wasting Lymphatic: No Cervical, Supraclavicular, or Inguinal Adenopathy Neurological: Cranial nerves II-XII grossly intact, Neuro grossly intact Psych/Mental Status: Anxious Vital Signs Temp Pulse Resp BP Pulse Ox 98.7 F 109 H 19 H 110/58 L 95 08/31/17 09:14 08/31/17 12:24 08/31/17 11:57 08/31/17 09:14 08/31/17 09:14 Oxygen Delivery Method Room Air Weight: 169 lb 8 oz Body Mass Index (BMI) 28.3 Intake and Output for Last 24 Hours 08/29/17 08/30/17 08/31/17 23:59 23:59 23:59 Intake Total 4379 / 4379 1838 / 1838 Output Total 300 / 300 Balance 4379 / 4379 1538 / 1538 Diagnostic Data Chest X-Ray 08/29/17 19:33 IMPRESSION: Normal x-ray examination of the chest. Electronically Signed: Herve Henriquez MD at 19:51 EDT , Service support , Medical Necessity - Tobacco Use Smoking Status: Never smoker Tobacco Use: Non-smoker Assessment/Plan Patient is a 52 years old female with history of MARMOLEJO with cirrhosis, currently on the transplant list, presents with persisting lethargy and confusion for one week. Ammonia level was 104, where her baseline is around 60. She states that she has been eating fair, but no bowel movements since 08/28. She had hematochezia on the day, which was her last bowel movement. Hgb is stable, and did not have any more episodes of hematochezia. She is having persisting right upper abdominal pain for a month, and she started to have headache on the day of admission, with history of migraine. #1 Mild hepatic encephalopathy. She was on lactulose 25 gram bid, increased to Q6H. Ammonia level improved to 65 on the following day, however, she was reporting no bowel movements until evening of 08/30. She is having frequent bowel movements since then. Decrease Lactulose to bid (08/31). Increase rifaximin to bid from qhs. Continue. Repeat NH4 level in AM. #2 Intractable headache with migraine. Maxalt was given here, with no improvement of headache. OK to continue opioid analgesics prn. Change [place] to oxycodone IR to avoid acetaminophen. Start DHE-45 infusion and Reglan 10 mg IV x 1. Continue Zofran prn if nausea develops. #3 Cirrhosis with MARMOLEJO. She has history of esophageal varices, possibly with varices of rectum. She did not have any more bleeding episodes. Continue to monitor CBC. #4 Thrombocytopenia. With cirrhosis. Platelet stable at 60's. Continue to monitor. #5 Seizure disorder. Continue carbamazepine. #6 Abnormality of tongue. It is more consistent with geographic tongue with minimal discomfort and no signs of thrush. VTE prophylaxis: SCD only for low platelets counts. GI prophylaxis: PPI po. She is full code. Disposition: Home in 2 to 3 days. Code Visit Inpatient E&M: 99748 Subs Hosp L3
--- NOTE | 2017-08-31 13:10 | CT_ITS ---
STUDY: CT BRAIN WITHOUT CONTRAST REASON FOR EXAM: Female, 52 years old. Headache RADIATION DOSAGE (If Supplied By Facility): CTDIvol = ( 44.99 ) mGy, DLP = ( 728.62 ) mGycm TECHNIQUE: Transaxial CT imaging of the brain was performed without administration of intravenous contrast material. Sagittal and coronal images reformatted. Individualized dose optimization techniques were used for this CT. COMPARISON: 07/21/2015. FINDINGS: Normal soft tissue structures. Normal calvarium. Normal size ventricles and extra-axial spaces for the patient's age. Normal white matter tracts of the cerebral hemispheres. Normal basal ganglia and thalami. Normal brainstem. Normal cerebellum. There is no intracranial hemorrhage. There are no findings of an acute ischemic infarction. Normal visualized paranasal sinuses. CT/Brain/Head without Contrast IMPRESSION: No acute intracranial process. Electronically Signed: Howie Wong DO at 15:01 EDT , Service support ,
--- NOTE | 2017-08-31 13:15 | PN_ITS ---
Subjective: She is c/o intractable migraine headache, behind her eyes. Analgesics and Maxalt have not been effective so far. She is also c/o palpitation, woke up during the night. EKG was done, unremarkable. She had BM's since last night. - Physical Exam General: Alert, Oriented x3 HEENT: Atraumatic, PERRLA, Normocephalic Oral: Moist Mucosa, No Gingival or Mucosal Lesions/ Ulcerations Neck: Supple, No JVD, Negative Carotid Bruits, Negative Hepatojugular Reflux, No Nodes, No Nuchal Rigidity Lungs: Clear to auscultation, Normal air movement, No rhonchi, No wheeze, No rales Cardiovascular: Regular rate, Regular Rhythm, Normal S1, Normal S2, No murmurs, No Ectopic Activity Abdomen: Bowel Sounds Present, Soft, Non Tender, Non-Distended, No Hepato- splenomegaly Extremities: No clubbing, No cyanosis, No edema Skin: No rashes, No breakdown Musculoskeletal: No Tenderness to Palpation of Joints or Extremities, No Muscle Wasting Lymphatic: No Cervical, Supraclavicular, or Inguinal Adenopathy Neurological: Cranial nerves II-XII grossly intact, Neuro grossly intact Psych/Mental Status: Anxious Vital Signs Temp Pulse Resp BP Pulse Ox 98.7 F 109 H 19 H 110/58 L 95 08/31/17 09:14 08/31/17 12:24 08/31/17 11:57 08/31/17 09:14 08/31/17 09:14 Oxygen Delivery Method Room Air Weight: 169 lb 8 oz Body Mass Index (BMI) 28.3 Intake and Output for Last 24 Hours 08/29/17 08/30/17 08/31/17 23:59 23:59 23:59 Intake Total 4379 / 4379 1838 / 1838 Output Total 300 / 300 Balance 4379 / 4379 1538 / 1538 Diagnostic Data Chest X-Ray 08/29/17 19:33 IMPRESSION: Normal x-ray examination of the chest. Electronically Signed: Herve Henriquez MD at 19:51 EDT , Service support , Medical Necessity - Tobacco Use Smoking Status: Never smoker Tobacco Use: Non-smoker Assessment/Plan Patient is a 52 years old female with history of MARMOLEJO with cirrhosis, currently on the transplant list, presents with persisting lethargy and confusion for one week. Ammonia level was 104, where her baseline is around 60. She states that she has been eating fair, but no bowel movements since . She had hematochezia on the day, which was her last bowel movement. Hgb is stable, and did not have any more episodes of hematochezia. She is having persisting right upper abdominal pain for a month, and she started to have headache on the day of admission, with history of migraine. #1 Mild hepatic encephalopathy. She was on lactulose 25 gram bid, increased to Q6H. Ammonia level improved to 65 on the following day, however, she was reporting no bowel movements until evening of 08/30. She is having frequent bowel movements since then. Decrease Lactulose to bid (08/31). Increase rifaximin to bid from qhs. Continue. Repeat NH4 level in AM. #2 Intractable headache with migraine. Maxalt was given here, with no improvement of headache. OK to continue opioid analgesics prn. Change [place] to oxycodone IR to avoid acetaminophen. Start DHE-45 infusion and Reglan 10 mg IV x 1. Continue Zofran prn if nausea develops. #3 Cirrhosis with MARMOLEJO. She has history of esophageal varices, possibly with varices of rectum. She did not have any more bleeding episodes. Continue to monitor CBC. #4 Thrombocytopenia. With cirrhosis. Platelet stable at 60's. Continue to monitor. #5 Seizure disorder. Continue carbamazepine. #6 Abnormality of tongue. It is more consistent with geographic tongue with minimal discomfort and no signs of thrush. VTE prophylaxis: SCD only for low platelets counts. GI prophylaxis: PPI po. She is full code. Disposition: Home in 2 to 3 days. Code Visit Inpatient E&M: 10060 Subs Hosp L3
[2017-08-31 13:34] LABS: Hemoglobin 12.5 g/dl (12.0-15.0); Mean Corp Hgb Conc 33.8 g/gl (32-36); Mean Corpuscular Volume 88.9 fL (81-99); Mean Platelet Vol. 10.2 fl (6.2-12.0); RBC Distribution Width CV 13.2 % (11.6-14.6); RBC Distribution Width SD 42.6 fl (35.1-43.9); Red Blood Count 4.16 M/mm3 (4.2-5.4); White Blood Count 4.6 K/mm3 (4.4-11.0)
[2017-08-31 13:37] LABS: Platelet Count 48 K/mm3 (150-450); Scan Indicated on CBC? Y/N YES- FLAGS NOTED
[2017-08-31 13:54] LABS: ALB/GLOB Ratio 0.9 RATIO (0.9-2.4); AST(SGOT) 36 U/L (15-37); Alanine Aminotransfer ALT/SGPT 28 U/L (13-56); Albumin, Serum 2.8 g/dL (3.2-5.0); Alkaline Phosphatase 129 U/L (45-117); Anion Gap 8 (5-15); BUN 3 mg/dL (7-18); BUN/Creat Ratio 5.5 RATIO (10-20); Calcium,Total 7.6 mg/dL (8.5-10.1); Chloride 109 mmol/L (98-107); Creatinine, Serum 0.54 mg/dL (0.55-1.02); EST Glomerular Filtration Rate 126 mL/min (>60); Est Glom Filt Rate - Afr Amer 153 mL/min (>60); Estimated Creatinine Clearance 107.63 ml/min; Globulin 3.2 g/dL (2.2-4.2); Glucose 260 mg/dL (74-106); Potassium 3.5 mmol/L (3.5-5.1); Sodium Level 142 mmol/L (136-145)
[2017-08-31 13:57] LABS: Differential Comment SCANNED
--- NOTE | 2017-08-31 14:10 | NURSING ---
DR BENOIT AWARE OF PT'S PLT CT AT 48
[2017-08-31] MEDS: Metoclopramide 10 MG/2 ML Vial IV (14:24)
[2017-08-31] MEDS: 0.9% NaCl Peripheral Flush Adult/Peds IV (14:26)
[2017-08-31] MEDS: Pantoprazole Sodium 20 MG Tablet PO (22:49)
[2017-08-31] MEDS: LINACLOTIDE 145 MCG CAPSULE PO (22:49)
[2017-08-31] MEDS: Citalopram 40 MG TABLET PO (22:49)
[2017-08-31] MEDS: carBAMazepine 200 MG Tablet 400 MG PO (22:49)
[2017-08-31] MEDS: clonazePAM 1 MG Tablet PO (22:49)
[2017-09-01] VITALS (8 sets, daily range): BP systolic 110–120; BP diastolic 61–72; PULSE 85–105; RESP 14–20; TEMP 36.8–37.1; O2SAT 93–98
[2017-09-01] MEDS: Temazepam 15 MG Capsule PO
[2017-09-01] MEDS: Ondansetron 4 MG/2 ML Vial IV (05:03)
[2017-09-01 06:20] LABS: Hematocrit 37.8 % (37-47); Hemoglobin 13.4 g/dl (12.0-15.0); Mean Corp Hgb Conc 35.4 g/gl (32-36); Mean Corpuscular Hgb 31.1 pg (27.0-32.0); Mean Corpuscular Volume 87.7 fL (81-99); Mean Platelet Vol. 10.7 fl (6.2-12.0); Platelet Count 56 K/mm3 (150-450); RBC Distribution Width CV 12.7 % (11.6-14.6); RBC Distribution Width SD 39.5 fl (35.1-43.9); Red Blood Count 4.31 M/mm3 (4.2-5.4); White Blood Count 4.7 K/mm3 (4.4-11.0)
[2017-09-01 06:32] LABS: Anion Gap 8 (5-15); BUN 2 mg/dL (7-18); BUN/Creat Ratio 4.9 RATIO (10-20); Calcium,Total 8.1 mg/dL (8.5-10.1); Chloride 108 mmol/L (98-107); EST Glomerular Filtration Rate 177 mL/min (>60); Est Glom Filt Rate - Afr Amer 214 mL/min (>60); Glucose 102 mg/dL (74-106); Potassium 3.1 mmol/L (3.5-5.1); Sodium Level 141 mmol/L (136-145)
[2017-09-01 06:39] LABS: Scan Indicated on CBC? Y/N NO
[2017-09-01] MEDS: Ipratropium/Albuterol Sulfate 3 ML AMPUL.NEB INHALATION (06:45)
[2017-09-01] MEDS: clonazePAM 1 MG Tablet PO (10:34)
[2017-09-01] MEDS: rifAXIMin 550 MG Tablet PO (10:34)
[2017-09-01] MEDS: Lactulose 20 GM/30 ML UDC 30 GM PO (10:34)
[2017-09-01] MEDS: oxyCODONE 5 MG Tablet PO (10:35)
--- NOTE | 2017-09-01 11:17 | PCM.DC ---
You will use the following diet at home:: Regular Your food should be the consistency of: Regular Your liquids should be the consistency of: Regular/Thin Discharge Activity: Return to Normal Activity Weight Bearing Status: Full weight bearing Allergies/Adverse Reactions: Allergies diphenhydramine HCl [From Benadryl] Adverse Reaction (Verified 08/29/17 17:49) Other [place] lorazepam [From Ativan] Adverse Reaction (Verified 08/29/17 17:49) Other SHE FEELS LIKE SHE WANTS TO [place] prednisone Adverse Reaction (Verified 08/29/17 17:49) Other prochlorperazine edisylate [From Compazine] Adverse Reaction (Verified 08/29/17 17:49) Other [place] prochlorperazine maleate [From Compazine] Adverse Reaction (Verified 08/29/17 17:49) Other CLIMB OUT OF MY BODY promethazine HCl [From Phenergan] Adverse Reaction (Verified 08/29/17 17:49) Other [place] topiramate [From Topamax] Adverse Reaction (Verified 08/29/17 17:49) Other tramadol Adverse Reaction (Verified 08/29/17 17:49) Other feels like going to climb rose Medications to take at Discharge Carbamazepine 200 mg PO QHS 12/27/14 Ondansetron [Zofran Odt] 4 mg PO Q8H PRN PRN 12/27/14 Sumatriptan Succinate [Imitrex] 100 mg PO BID PRN PRN 01/31/15 Citalopram [Celexa] 40 mg PO QHS 07/29/16 Albuterol Sulfate [Proventil Hfa] 1 - 2 puff IH Q2H PRN PRN 01/17/17 Mometasone/Formoterol [Dulera 200 Mcg/5 Mcg Inhaler] 2 puff INHALATION QHS 01/17/17 Rifaximin [Xifaxan] 550 mg PO QHS 05/04/17 Lactulose [Chronulac] 30 ml PO BID 06/20/17 Temazepam [Restoril] 15 mg PO QHS PRN PRN #30 capsule 06/25/17 Clonazepam [Klonopin] 1 mg PO BID 08/19/17 Linacolotide [Linzess] 145 mcg PO QHS 08/29/17 Omeprazole [Prilosec] 20 mg PO QHS 08/29/17 Primary Care Physician: Anna Meza DISPLAY DESIGNER-C [Primary Care Provider] - Please follow up with your Primary Care Physician in: in 2 weeks
--- NOTE | 2017-09-01 11:20 | DCINST_ITS ---
You will use the following diet at home:: Regular Your food should be the consistency of: Regular Your liquids should be the consistency of: Regular/Thin Discharge Activity: Return to Normal Activity Weight Bearing Status: Full weight bearing Allergies/Adverse Reactions: Allergies diphenhydramine HCl [From Benadryl] Adverse Reaction (Verified 08/29/17 17:49) Other [place] lorazepam [From Ativan] Adverse Reaction (Verified 08/29/17 17:49) Other SHE FEELS LIKE SHE WANTS TO [place]IM[place] prednisone Adverse Reaction (Verified 08/29/17 17:49) Other prochlorperazine edisylate [From Compazine] Adverse Reaction (Verified 08/29/17 17:49) Other [place] prochlorperazine maleate [From Compazine] Adverse Reaction (Verified 08/29/17 17 :49) Other CLIMB OUT OF MY BODY promethazine HCl [From Phenergan] Adverse Reaction (Verified 08/29/17 17:49) Other [place] topiramate [From Topamax] Adverse Reaction (Verified 08/29/17 17:49) Other tramadol Adverse Reaction (Verified 08/29/17 17:49) Other feels like going to climb rose Medications to take at Discharge Carbamazepine 200 mg PO QHS 12/27/14 Ondansetron [Zofran Odt] 4 mg PO Q8H PRN PRN 12/27/14 Sumatriptan Succinate [Imitrex] 100 mg PO BID PRN PRN 01/31/15 Citalopram [Celexa] 40 mg PO QHS 07/29/16 Albuterol Sulfate [Proventil Hfa] 1 - 2 puff IH Q2H PRN PRN 01/17/17 Mometasone/Formoterol [Dulera 200 Mcg/5 Mcg Inhaler] 2 puff INHALATION QHS 01/17 Rifaximin [Xifaxan] 550 mg PO QHS 05/04/17 Lactulose [Chronulac] 30 ml PO BID 06/20/17 Temazepam [Restoril] 15 mg PO QHS PRN PRN #30 capsule 06/25/17 Clonazepam [Klonopin] 1 mg PO BID 08/19/17 Linacolotide [Linzess] 145 mcg PO QHS 08/29/17 Omeprazole [Prilosec] 20 mg PO QHS 08/29/17 Primary Care Physician: Anna Meza WET ROLLER-C [Primary Care Provider] - Please follow up with your Primary Care Physician in: in 2 weeks
[2017-09-01 12:46] LABS: Pathologist Review Reviewed
--- NOTE | 2017-09-03 16:56 | PCM.DC.SUM ---
Discharge Date and Diagnosis Date of Admission: 08/29/17 Date of Discharge: 09/01/17 - Primary Discharge Diagnosis #1 Acute hepatic encephalopathy #2 intractable migraine #3 chronic cirrhosis due to MARMOLEJO #4 seizure disorder - Secondary Discharge Diagnosis Chronic Problems MARMOLEJO (nonalcoholic steatohepatitis) (Chronic) Migraine (Chronic) Asthma (Chronic) Hiatal hernia (Chronic) Esophageal varices (Chronic) numerous banding Seizures (Chronic) last known 11/2016 Hospital Course and Treatment Operations: None Procedures: None Summary of Care Provided: The patient is a 52 year old F seen in the emergency room at [facility] after being brought in with fatigue, malaise, and confusion. Patient has a history of hepatic encephalopathy due to chronic cirrhosis. Workup in the emergency room included an ammonia level which was found to be elevated at 104, patient was admitted to [facility], given lactulose, patient developed a migraine headache during her hospital stay and was placed on D.H.E. 45 IV. Patient improved during her hospitalization, on 09/01/17, patient was seen and examined, felt to be in stable condition for discharge home Discharge Activity: Return to Normal Activity Weight Bearing Status: Full weight bearing Home Medications: Medications to take at Discharge Carbamazepine 200 mg PO QHS 12/27/14 Ondansetron [Zofran Odt] 4 mg PO Q8H PRN PRN 12/27/14 Sumatriptan Succinate [Imitrex] 100 mg PO BID PRN PRN 01/31/15 Citalopram [Celexa] 40 mg PO QHS 07/29/16 Albuterol Sulfate [Proventil Hfa] 1 - 2 puff IH Q2H PRN PRN 01/17/17 Mometasone/Formoterol [Dulera 200 Mcg/5 Mcg Inhaler] 2 puff INHALATION QHS 01/17/17 Rifaximin [Xifaxan] 550 mg PO QHS 05/04/17 Lactulose [Chronulac] 30 ml PO BID 06/20/17 Temazepam [Restoril] 15 mg PO QHS PRN PRN #30 capsule 06/25/17 Clonazepam [Klonopin] 1 mg PO BID 08/19/17 Linacolotide [Linzess] 145 mcg PO QHS 08/29/17 Omeprazole [Prilosec] 20 mg PO QHS 08/29/17 Primary Care Physician: Anna Meza NP-C [Primary Care Provider] - Please follow up with your Primary Care Physician in: in 2 weeks Please Follow Up With: Anna Meza NP-C Disposition: Home Minutes spent on discharge:: 32 Patient Condition:: Stable Medical Necessity - Tobacco Use Smoking Status: Never smoker Tobacco Use: Non-smoker Meaningful Use Info Meaningful Use Diagnoses (Choose all that apply): None applicable Code Visit Inpatient E&M: 74721 Disch Hosp
--- NOTE | 2017-09-03 17:03 | DS.PCM_ITS ---
Discharge Date and Diagnosis Date of Admission: 08/29/17 Date of Discharge: 09/01/17 - Primary Discharge Diagnosis #1 Acute hepatic encephalopathy #2 intractable migraine #3 chronic cirrhosis due to MARMOLEJO #4 seizure disorder - Secondary Discharge Diagnosis Chronic Problems MARMOLEJO (nonalcoholic steatohepatitis) (Chronic) Migraine (Chronic) Asthma (Chronic) Hiatal hernia (Chronic) Esophageal varices (Chronic) numerous banding Seizures (Chronic) last known 11/2016 Hospital Course and Treatment Operations: None Procedures: None Summary of Care Provided: The patient is a 52 year old F seen in the emergency room at [facility] after being brought in with fatigue, malaise, and confusion. Patient has a history of hepatic encephalopathy due to chronic cirrhosis. Workup in the emergency room included an ammonia level which was found to be elevated at 104, patient was admitted to [facility], given lactulose, patient developed a migraine headache during her hospital stay and was placed on D.H.E. 45 IV. Patient improved during her hospitalization, on 09/01/17, patient was seen and examined, felt to be in stable condition for discharge home Discharge Activity: Return to Normal Activity Weight Bearing Status: Full weight bearing Home Medications: Medications to take at Discharge Carbamazepine 200 mg PO QHS 12/27/14 Ondansetron [Zofran Odt] 4 mg PO Q8H PRN PRN 12/27/14 Sumatriptan Succinate [Imitrex] 100 mg PO BID PRN PRN 01/31/15 Citalopram [Celexa] 40 mg PO QHS 07/29/16 Albuterol Sulfate [Proventil Hfa] 1 - 2 puff IH Q2H PRN PRN 01/17/17 Mometasone/Formoterol [Dulera 200 Mcg/5 Mcg Inhaler] 2 puff INHALATION QHS 01/17 Rifaximin [Xifaxan] 550 mg PO QHS 05/04/17 Lactulose [Chronulac] 30 ml PO BID 06/20/17 Temazepam [Restoril] 15 mg PO QHS PRN PRN #30 capsule 06/25/17 Clonazepam [Klonopin] 1 mg PO BID 08/19/17 Linacolotide [Linzess] 145 mcg PO QHS 08/29/17 Omeprazole [Prilosec] 20 mg PO QHS 08/29/17 Primary Care Physician: Anna Meza NP-C [Primary Care Provider] - Please follow up with your Primary Care Physician in: in 2 weeks Please Follow Up With: Anna Meza NP-C Disposition: Home Minutes spent on discharge:: 32 Patient Condition:: Stable Medical Necessity - Tobacco Use Smoking Status: Never smoker Tobacco Use: Non-smoker Meaningful Use Info Meaningful Use Diagnoses (Choose all that apply): None applicable Code Visit Inpatient E&M: 51091 Disch Hosp
== END 2017-09-01 12:05 | disposition home or self-care (01) | DRG 205 ==
LOC: ED 19:11 → MS3 22:00
PROVIDERS: Hospitalist; Admitting Provider Family Medicine; Emergency Provider Emergency Medicine; Family Provider Nurse Practitioner Primary Care; PCP Nurse Practitioner Primary Care; Visit Provider Internal Medicine
DX: K72.90 Hepatic failure, unspecified without coma (principal); K75.81 Nonalcoholic steatohepatitis (NASH); Z76.82 Awaiting organ transplant status; D69.59 Other secondary thrombocytopenia; K74.60 Unspecified cirrhosis of liver; G40.909 Epilepsy, unspecified, not intractable, without status epilepticus; J45.909 Unspecified asthma, uncomplicated; Z79.899 Other long term (current) drug therapy; K14.1 Geographic tongue; G43.909 Migraine, unspecified, not intractable, without status migrainosus
CPT/HCPCS: 36415; 70450; 71045; 80048; 80053; 80076; 80156; 81001; 82140; 82274; 83735; 84100; 85025; 85027; 85610; 86900; 86965; 93005; 94640; 97110; 97162; 97802; 99282; J7030; J7040; J7050; P9035; A4216; J1110; J2405

== ENCOUNTER → 2017-09-05 18:02 | Outpatient (REF) | payer MEDICAID, SELFPAY | LOC: LABSPEC 18:02 | PROVIDERS: Family Provider Nurse Practitioner Primary Care; Visit Provider Nurse Practitioner Primary Care | DX: Z00.00 Encounter for general adult medical examination without abnormal findings (principal) | CPT/HCPCS: 82140 ==

== ENCOUNTER → 2017-09-19 15:31 | Outpatient (CLI) | payer MEDICAID, SELFPAY ==
--- NOTE | 2017-09-19 15:32 | BI_ITS ---
MAMMOGRAPHY - BILATERAL SCREENING REASON FOR EXAM: Female, 52 years old. Routine annual screening examination. PERTINENT HISTORY: Aunt with breast cancer. History of prior bilateral breast reduction surgery. TECHNIQUE: Digital bilateral breast amy (3D mammographic acquisition) in the CC and MLO projections. 2-D mediolateral oblique (MLO) and craniocaudad (CC) views of both breasts were obtained. CAD: Full Field Digital Mammography with Computer Added Detection was performed. COMPARISON: Comparison is made with prior study dated May 31, 2016. FINDINGS: Breast Composition: There are scattered areas of fibroglandular density. There are no dominant masses or suspicious calcifications. No other significant abnormalities are identified. There has been no significant change since the prior study. BI/SCREENING MAMM (CAD), BILAT IMPRESSION: Stable bilateral screening mammogram. Yearly follow-up mammogram recommended. (A) ASSESSMENT CATEGORY: BIRADS Category 1: Negative. A letter regarding these results will be sent to the patient by the facility within 30 days. Approximately 10% of breast cancers are not detected by mammography. A normal mammogram should not delay biopsy of a clinically suspicious abnormality. [id number] Electronically Signed: Terrance Kim MD at 8:46 EDT Tel [phone], Service support ,
== END ==
PROVIDERS: Family Provider Nurse Practitioner Primary Care; PCP Nurse Practitioner Primary Care; Visit Provider Nurse Practitioner Primary Care
DX: Z12.31 Encounter for screening mammogram for malignant neoplasm of breast (principal)
CPT/HCPCS: 77063; 77067

== ENCOUNTER → 2017-11-04 09:15 | Outpatient (CLI) | payer MEDICAID, SELFPAY ==
[2017-11-04 11:37] LABS: ALB/GLOB Ratio 0.9 RATIO (0.9-2.4); AST(SGOT) 37 U/L (15-37); Alanine Aminotransfer ALT/SGPT 26 U/L (13-56); Albumin, Serum 3.2 g/dL (3.2-5.0); Alkaline Phosphatase 151 U/L (45-117); Anion Gap 5 (5-15); BUN 6 mg/dL (7-18); BUN/Creat Ratio 15.3 RATIO (10-20); Calcium,Total 7.8 mg/dL (8.5-10.1); Chloride 108 mmol/L (98-107); Creatinine, Serum 0.39 mg/dL (0.55-1.02); EST Glomerular Filtration Rate 183 mL/min (>60); Est Glom Filt Rate - Afr Amer 222 mL/min (>60); Globulin 3.7 g/dL (2.2-4.2); Glucose 105 mg/dL (74-106); Potassium 3.6 mmol/L (3.5-5.1); Protein, Total 6.9 g/dL (6.4-8.2); Sodium Level 141 mmol/L (136-145)
[2017-11-04 11:42] LABS: International Normalized Ratio 1.4; Prothrombin Time (Protime)PT. 17.4 SECONDS (11.7-14.9)
== END ==
PROVIDERS: Family Provider Nurse Practitioner Primary Care; PCP Nurse Practitioner Primary Care
DX: G40.909 Epilepsy, unspecified, not intractable, without status epilepticus (principal); K74.60 Unspecified cirrhosis of liver
CPT/HCPCS: 36415; 80053; 82140; 85610

== ENCOUNTER 2017-11-04 16:35 | Observation (INO) | payer MEDICAID, SELFPAY ==
[2017-11-04 16:36] VITALS: BP 160/90; PULSE 95; RESP 16; TEMP 36.2; O2SAT 98; BMI 28.6
[2017-11-04] MEDS: Morphine 4 MG/ML Syringe IV ×2 (17:44→22:01)
[2017-11-04] MEDS: Ondansetron 4 MG/2 ML Vial IV (17:45)
[2017-11-04 17:57] LABS: Absolute Lymphocyte Count 1.34 X10^3/ul (0.83-4.51); Basophil# 0.02 X10^3/uL; Basophil% 0.4 % (0-1); Eosinophil# 0.05 X10^3/uL; Eosinophils% 1.1 % (0-5); Hematocrit 38.5 % (37-47); Hemoglobin 13.4 g/dl (12.0-15.0); Lymphocyte # 1.34 X10^3/ul (4.0); Lymphocyte % 28.4 % (19-41); Mean Corp Hgb Conc 34.8 g/gl (32-36); Mean Corpuscular Hgb 30.5 pg (27.0-32.0); Mean Corpuscular Volume 87.7 fL (81-99); Mean Platelet Vol. 10.1 fl (6.2-12.0); Monocyte# 0.28 X10^3/uL; Monocyte% 5.9 % (0-10); Neutrophil # 3.03 X10^3/uL (2.7-7.7); Neutrophil % 64.2 % (47-70); Platelet Count 59 K/mm3 (150-450); RBC Distribution Width CV 13.4 % (11.6-14.6); RBC Distribution Width SD 42.6 fl (35.1-43.9); Red Blood Count 4.39 M/mm3 (4.2-5.4); White Blood Count 4.7 K/mm3 (4.4-11.0)
[2017-11-04 18:04] LABS: International Normalized Ratio 1.5; Prothrombin Time (Protime)PT. 17.7 SECONDS (11.7-14.9)
[2017-11-04] MEDS: Lactulose 20 GM/30 ML UDC PO ×2 (18:25→22:01)
[2017-11-04 18:28] LABS: POSITIVE COUNT NO; POSITIVE DIFFERENTIAL NO; POSITIVE MORPHOLOGY NO
--- NOTE | 2017-11-04 18:28 | ED.VISSUMM ---
- ER Visit Summary Date of Service: 11/04/17 Chief Complaint: Elevated ammonia level History of Present Illness: The patient is a [address] Meza. She reports the past 2 days she is slept more than usual and felt confused. She had an outpatient ammonia level obtained today and it was 110. She reports that she has not missed any lactulose. She is also not missed her rifaximin. Patient reports that she has abdominal pain is 8 out of 10 severity and she believes that she is developing ascites. She reports she has nausea at night. No vomiting, diarrhea, melena, or hematochezia. No fever or chills. Physical Examination: Vitals: Stable. Afebrile. General: Well-nourished and well-developed. Head: Normocephalic atraumatic. Neck: Supple, no lymphadenopathy. No JVD. Nontender. Cardiovascular: Regular rate and rhythm. No murmurs. Respiratory: No respiratory distress. Clear to auscultation bilaterally. Abdominal: Soft, mild diffuse tenderness to palpation, nondistended, normal bowel sounds. No guarding, rebound, or peritoneal signs. Mild ascites. Back: Nontender. Extremities: Nontender, no edema. Skin: Normal color, no rash. Neurologic: Alert and oriented ?3. Cranial nerves II through XII are intact. Normal strength and sensation. Psych: Normal affect. Test Results: Chem-7 is remarkable for chloride of 108, calcium 7.8, BUN 6, creatinine 0.39. LFTs are remarkable for an alk phos of 151. INR is 1.5. Ammonia level is 110. It has been anywhere from 45-104 and 2017 and 2018. Emergency Department Course and Treatment: Patient was given a dose of morphine IV. She was given lactulose p.o. She is resting comfortably. Treatment Plan: Patient was discussed with Dr. Valentine. She will be admitted to the hospital for further evaluation and treatment. Disposition: Admitted in improved condition. Impression: 1. Hyperammonemia. 2. History of nonalcoholic cirrhosis. 3. Thrombocytopenia. This note was generated with [employer] software. It may contain incorrect words, spelling, and punctuation that were not noted in review of the chart prior to signing ED Disposition - Plan for ED Patient: Chief Complaint: Abn Labs
[2017-11-04 18:34] VITALS: BP 157/81; PULSE 67; RESP 17; O2SAT 98
--- NOTE | 2017-11-04 18:41 | PCM.HP.STD ---
Problem List (1) Hepatic encephalopathy Status: Acute (2) MARMOLEJO (nonalcoholic steatohepatitis) Status: Chronic (3) Migraine Status: Chronic Qualifiers: (4) Asthma Status: Chronic Qualifiers: (5) Esophageal varices Status: Chronic Qualifiers: Comment: numerous banding (6) Seizures Status: Chronic Comment: last known 11/2016 History of Present Illness Date of Admission: 11/04/17 Chief Complaint: abdominal pain The patient is a 52 year old F with a hx of MARMOLEJO, migraines, seizures, esophageal varices, asthma, arthritis, who presents to the ER with gradually increasing abdominal pain since Friday. She has noticed that she has had increased abdominal pain, distention, pressure, difficulty breathing relieved by sitting upright, and confusion. Pain is RUQ but also lower quadrants - she states pelvic pressure like she needs to give . She has nausea without vomiting. She had routine labs drawn today and her ammonia was 110, she normally runs 40-50. She has been compliant with lactulose but is only have 2 BM daily and they are well formed. She went to [facility] friday but no changes were made. She has noticed she cannot focus and is increasingly tired. She normally functions independently at home, ambulates on her own, and has been unsteady on her feet lately. She is followed by [place] liver transplant team states her score is a 12. She has never required a paracentesis. She does not drink. [] Past Medical History Past Medical History (Chronic Problems): Chronic Problems MARMOLEJO (nonalcoholic steatohepatitis) (Chronic) Migraine (Chronic) Asthma (Chronic) Hiatal hernia (Chronic) Esophageal varices (Chronic) numerous banding Seizures (Chronic) last known 11/2016 Allergies diphenhydramine HCl [From Benadryl] Adverse Reaction (Verified 11/04/17 17:57) climb the rose CLIMB THE ROSE lorazepam [From Ativan] Adverse Reaction (Verified 11/04/17 17:57) Climb the rose SHE FEELS LIKE SHE WANTS TO CLIMB THE ROSE prednisone Adverse Reaction (Verified 08/29/17 17:49) Other prochlorperazine edisylate [From Compazine] Adverse Reaction (Verified 11/04/17 17:57) climb the rose CLIMB THE ROSE prochlorperazine maleate [From Compazine] Adverse Reaction (Verified 11/04/17 17:57) climb out of my body CLIMB OUT OF MY BODY promethazine HCl [From Phenergan] Adverse Reaction (Verified 11/04/17 17:57) climb the rose CLIMB THE ROSE topiramate [From Topamax] Adverse Reaction (Verified 08/29/17 17:49) Other tramadol Adverse Reaction (Verified 11/04/17 17:57) climb the rose feels like going to climb rose Home Medications: Ambulatory Orders Medication Instructions Recorded Carbamazepine 400 mg PO QHS 12/27/14 Ondansetron [Zofran Odt] 4 mg PO Q8H PRN PRN 12/27/14 Sumatriptan Succinate [Imitrex] 100 mg PO BID PRN PRN 01/31/15 Citalopram [Celexa] 40 mg PO QHS 07/29/16 Albuterol Sulfate [Proventil Hfa] 1 - 2 puff IH Q2H PRN PRN 01/17/17 Mometasone/Formoterol [Dulera 200 2 puff INHALATION QHS 01/17/17 Mcg/5 Mcg Inhaler] Rifaximin [Xifaxan] 1,100 mg PO QHS 05/04/17 Lactulose [Chronulac] 30 ml PO BID 06/20/17 Temazepam [Restoril] 15 mg PO QHS PRN PRN #30 capsule 06/25/17 Clonazepam [Klonopin] 1 mg PO BID 08/19/17 Linacolotide [Linzess] 290 mcg PO QHS 08/29/17 Omeprazole [Prilosec] 20 mg PO QHS 08/29/17 Cholecalciferol (Vitamin D3) 5,000 unit PO DAILY 11/04/17 [Vitamin D3] Zinc 50 mg PO DAILY 11/04/17 Surgical History: - - cholecystectomy, partial hysterectomy, right shoulder replacement secondary to fall secondary to seizure, bilateral knee arthroscopic Psychiatric History: Anxiety, Depression NEUROLOGICAL SURGEON History: No pertinent NEUROLOGICAL SURGEON history Lives: Spouse/ Significant Other Smoking Status: Never smoker Tobacco Use: Non-smoker Alcohol: None Drugs: None - *Family History Maternal History Items: COPD Paternal History Items: Heart Disease - CHF, - - Liver disease, alcoholism Sibling History Items: Heart Disease, Stroke, - - cirrhosis Review of Systems Constitutional: Reports: Malaise, Weakness, Fatigue. Denies: Chills, Fever, Weight Change HEENT: Denies: Head Aches, Sinus Congestion, Sinus Drainage Cardiovascular: Denies: Chest Pain, Palpitations Respiratory: Reports: Shortness of Breath. Denies: Cough, Shortness of breath at rest, Sputum production Gastrointestinal: Reports: Abdominal Pain, Nausea, - - distention, pressure. Denies: Vomiting Genitourinary: Denies: Dysuria Musculoskeletal: Denies: Joint Pain, Joint Tenderness Skin: Denies: Rash, Wounds Neurological: Denies: Numbness, Tingling, Focal weakness Psychiatric: Denies: Anxiety, Depression, Homicidal Ideations, Suicidal Ideations Hematologic/ Lymphatic: Denies: Easy Bruising, Easy Bleeding VTE Information - Inpt Only VTE Present on Admission: No VTE Mechan Device Prophylaxis: SCD's VTE Pharm Prophylaxis ordered?: No Reason prophylaxis not ordered:: Medical Contraindication - Physical Exam General: Alert, Oriented x3, Cooperative HEENT: Atraumatic, PERRLA, EOMI, Normocephalic Neck: Supple, No JVD, Negative Carotid Bruits Lungs: Clear to auscultation, Normal air movement Cardiovascular: Regular rate, No murmurs Abdomen: Bowel Sounds Present, Soft, Distended, Tender - to light palp all over Extremities: No edema, Capillary Refill Less than 3 Seconds Skin: No rashes, No breakdown Musculoskeletal: No Tenderness to Palpation of Joints or Extremities Neurological: Cranial nerves II-XII grossly intact Psych/Mental Status: Depressed, Alert and oriented to time, place, person, mood and affect Vital Signs Temp Pulse Resp BP Pulse Ox 97.2 F L 67 17 157/81 H 98 11/04/17 16:36 11/04/17 18:34 11/04/17 18:34 11/04/17 18:34 11/04/17 18:34 Assessment/Plan 1. Acute metabolic encephalopathy 2/2 MARMOLEJO and elevated ammonia (110 as outpatient today) - increase lactulose. Goal 3 loose BMs per day. Pt reported 2 solid BM per day. F/U with [place] transplant team. Continue Xifaxan. 2. Ascites 2/2 MARMOLEJO - increase lactulose. Abdominal US, patient may need paracentesis. She has severe enough distention that she can feel pressure on her diaphragm with subsequent difficulty breathing unless she remains upright. INR 1.5. 3. Thrombocytopenia 2/2 MARMOLEJO - no anticoagulation. 4. HTN - trending high. Monitor and adjust home meds as needed 5. Esophageal varices - PPI. Hgb stable. 6. Hx migraine - currently none 7. Hx seizures - no seizures since last November. Continue home meds. 8. Anx/Dep - home meds. 9. Asthma - continue dulera, prn albuterol. 10. Debility/unsteady gait - PTOT. Anticipate either home without needs or HHC. DC planning: as per #11 DVT ppx: SCDs, no chemoppx with #3/#5 Pt seen by Rosalino Tristan PA-C under the supervision of Dr. Valentine.
--- NOTE | 2017-11-04 18:56 | US_ITS ---
STUDY: ABDOMINAL ULTRASOUND -evaluation for ascites, limited quadrants. REASON FOR VISIT: Female, 52 years old. Ascites survey history of cirrhosis and abdominal distention TECHNIQUE: Ultrasound evaluation of the right upper quadrant was performed with real-time and static easton-scale imaging. TECHNICAL QUALITY: Adequate. COMPARISON: None. FINDINGS: 4 quadrants were evaluated, right upper quadrant right lower quadrant left upper quadrant and left lower quadrant. There is no visualized evidence of significant ascites. The liver is partially visualized and fatty infiltrated. US/Abdomen Limited IMPRESSION: No visualized ascites. Electronically Signed: Tarsha Ellsworth MD at 21:35 EDT Tel , Service support ,
[2017-11-04 19:26] VITALS: BMI 29.2
[2017-11-04 19:52] VITALS: BP 115/77; PULSE 85; RESP 16; TEMP 36.4; O2SAT 97
[2017-11-04 19:53] VITALS: BMI 29.2
[2017-11-04] MEDS: Ipratropium/Albuterol Sulfate 3 ML AMPUL.NEB INHALATION (20:18)
[2017-11-04 20:19] VITALS: PULSE 85; RESP 16
[2017-11-04] MEDS: oxyCODONE 5 MG Tablet PO (20:33)
[2017-11-04 20:59] VITALS: PULSE 98
--- NOTE | 2017-11-04 21:20 | NURSING ---
Talk to patient and significant other, significant other to bring in patient's home linacolotide.
[2017-11-04] MEDS: carBAMazepine 200 MG Tablet 400 MG PO (22:01)
[2017-11-04] MEDS: Citalopram 40 MG TABLET PO (22:01)
[2017-11-04] MEDS: Pantoprazole Sodium 20 MG Tablet PO (22:01)
[2017-11-04] MEDS: rifAXIMin 550 MG Tablet 1100 MG PO (22:01)
[2017-11-04] MEDS: LINACLOTIDE 145 MCG CAPSULE 290 MCG PO (22:29)
[2017-11-05] MEDS: Rizatriptan Benzoate 10 MG Tablet PO ×2 (01:04→06:12)
[2017-11-05] MEDS: Ondansetron 4 MG/2 ML Vial IV (01:08)
[2017-11-05] MEDS: oxyCODONE 5 MG Tablet PO ×3 (01:11→12:32)
[2017-11-05 02:05] VITALS: BP 121/79; PULSE 91; RESP 16; TEMP 36.6; O2SAT 96
[2017-11-05 02:32] VITALS: PULSE 90
[2017-11-05] MEDS: Lactulose 20 GM/30 ML UDC PO ×5 (05:33→15:33)
[2017-11-05 06:02] VITALS: PULSE 89; RESP 12
[2017-11-05] MEDS: Ipratropium/Albuterol Sulfate 3 ML AMPUL.NEB INHALATION (06:02)
[2017-11-05 06:10] LABS: Absolute Neutrophil Count 3.8 X10^3/uL (2.0-7.7); Basophil# 0.02 X10^3/uL; Basophil% 0.4 % (0-1); Eosinophil# 0.06 X10^3/uL; Eosinophils% 1.1 % (0-5); Hematocrit 39.1 % (37-47); Hemoglobin 13.6 g/dl (12.0-15.0); Lymphocyte % 23.5 % (19-41); Mean Corp Hgb Conc 34.8 g/gl (32-36); Mean Corpuscular Hgb 30.8 pg (27.0-32.0); Mean Corpuscular Volume 88.5 fL (81-99); Monocyte# 0.38 X10^3/uL; Monocyte% 6.9 % (0-10); Neutrophil # 3.76 X10^3/uL (2.7-7.7); Neutrophil % 67.9 % (47-70); Platelet Count 75 K/mm3 (150-450); RBC Distribution Width CV 13.3 % (11.6-14.6); RBC Distribution Width SD 41.7 fl (35.1-43.9); Red Blood Count 4.42 M/mm3 (4.2-5.4); White Blood Count 5.5 K/mm3 (4.4-11.0)
[2017-11-05 06:12] LABS: POSITIVE COUNT NO; POSITIVE DIFFERENTIAL NO; POSITIVE MORPHOLOGY NO
[2017-11-05 06:21] LABS: ALB/GLOB Ratio 0.8 RATIO (0.9-2.4); AST(SGOT) 55 U/L (15-37); Alanine Aminotransfer ALT/SGPT 34 U/L (13-56); Albumin, Serum 3.2 g/dL (3.2-5.0); Alkaline Phosphatase 147 U/L (45-117); Anion Gap 9 (5-15); BUN 4 mg/dL (7-18); BUN/Creat Ratio 7.4 RATIO (10-20); Calcium,Total 8.2 mg/dL (8.5-10.1); Chloride 107 mmol/L (98-107); Creatinine, Serum 0.54 mg/dL (0.55-1.02); EST Glomerular Filtration Rate 126 mL/min (>60); Est Glom Filt Rate - Afr Amer 152 mL/min (>60); Estimated Creatinine Clearance 107.63 ml/min; Globulin 3.8 g/dL (2.2-4.2); Glucose 138 mg/dL (74-106); Potassium 3.9 mmol/L (3.5-5.1); Sodium Level 142 mmol/L (136-145)
[2017-11-05 08:17] VITALS: BP 133/78; PULSE 100; PULSE 101; RESP 16; TEMP 36.9; O2SAT 95
--- NOTE | 2017-11-05 10:10 | CASEMGMT ---
DC PLAN: Home on discharge. Pt states her significant other and daughter are very helpful with any needs. Able to get prescriptions filled through [facility]. Miquel CLEMENTN RN ACM
[2017-11-05] MEDS: Acetaminophen/Butalbital/Caffe 1 Tablet 2 TABLET PO (10:29)
[2017-11-05] MEDS: Ondansetron ODT 4 MG Tablet PO (10:29)
[2017-11-05 11:05] VITALS: PULSE 86
--- NOTE | 2017-11-05 13:10 | CASEMGMT ---
PT notes reviewed. Discussed therapy on dc with pt. She is declining at this time; states her sign other is home and able to assist. Pt states she is independent except when she is not feeling well with her ammonia level being high. RN CM let her know we could re-evaluate tomorrow to see if dc needs arise. Miquel KENNEY RN ACM
[2017-11-05 14:22] VITALS: BP 134/72; PULSE 86; RESP 16; TEMP 36.7; O2SAT 97
--- NOTE | 2017-11-05 15:01 | PCM.DC ---
You will use the following diet at home:: No restrictions Your food should be the consistency of: Regular Your liquids should be the consistency of: Regular/Thin Discharge Activity: Return to Normal Activity Weight Bearing Status: Full weight bearing Allergies/Adverse Reactions: Allergies diphenhydramine HCl [From Benadryl] Adverse Reaction (Verified 11/04/17 17:57) climb the rose CLIMB THE ROSE lorazepam [From Ativan] Adverse Reaction (Verified 11/04/17 17:57) Climb the rose SHE FEELS LIKE SHE WANTS TO CLIMB THE ROSE prednisone Adverse Reaction (Verified 08/29/17 17:49) Other prochlorperazine edisylate [From Compazine] Adverse Reaction (Verified 11/04/17 17:57) climb the rose CLIMB THE ROSE prochlorperazine maleate [From Compazine] Adverse Reaction (Verified 11/04/17 17:57) climb out of my body CLIMB OUT OF MY BODY promethazine HCl [From Phenergan] Adverse Reaction (Verified 11/04/17 17:57) climb the rose CLIMB THE ROSE topiramate [From Topamax] Adverse Reaction (Verified 08/29/17 17:49) Other tramadol Adverse Reaction (Verified 11/04/17 17:57) climb the rose feels like going to climb rose Medications to take at Discharge Carbamazepine 400 mg PO QHS 12/27/14 Sumatriptan Succinate [Imitrex] 100 mg PO BID PRN PRN 15 Citalopram [Celexa] 40 mg PO QHS 07/29/16 Rifaximin [Xifaxan] 1,100 mg PO QHS 05/04/17 Temazepam [Restoril] 15 mg PO QHS PRN PRN #30 capsule 06/25/17 Clonazepam [Klonopin] 1 mg PO BID PRN PRN 08/19/17 Linacolotide [Linzess] 290 mcg PO QHS 08/29/17 Omeprazole [Prilosec] 20 mg PO QHS 08/29/17 Cholecalciferol (Vitamin D3) [Vitamin D3] 5,000 unit PO DAILY 11/04/17 Zinc 50 mg PO QHS 11/04/17 Lactulose [Chronulac] 30 gm PO TID #5 bottle 11/05/17 The following prescriptions were given: Lactulose [Chronulac] 30 gm PO TID #5 bottle Primary Care Physician: Anna Meza, FINANCE PROFESSIONAL-C [Primary Care Provider] - Please follow up with your Primary Care Physician in: in 1-2 weeks
--- NOTE | 2017-11-05 15:12 | PCM.DC.SUM ---
Discharge Date and Diagnosis Date of Admission: 11/04/17 Date of Discharge: 11/05/17 - Primary Discharge Diagnosis Hepatic encephalopathy 2/2 MARTINEZ, elevated ammonia Ascites 2/2 MARTINEZ Thrombocytopenia 2/2 martinez HTN Esophageal varices Migraine Hx Seizures Anx/Dep Asthma Debility/unsteady gait - Secondary Discharge Diagnosis Chronic Problems MARTINEZ (nonalcoholic steatohepatitis) (Chronic) Migraine (Chronic) Asthma (Chronic) Hiatal hernia (Chronic) Esophageal varices (Chronic) numerous banding Seizures (Chronic) last known 11/2016 Hospital Course and Treatment Imaging Results: US/Abdomen Limited IMPRESSION: No visualized ascites. Operations: None Procedures: None Summary of Care Provided: Physical exam on day of discharge: General: Resting comfortably NAD Psych: A/Ox3 normal affect HEENT: PEARRLA AT NC Neck: Supple NT CV: RRR no m/t/r/g/h Resp: CTA Abd: diffuse tenderness, active BS x4 quads, no guarding, mildly distended. no fluid wave shift. Ext: DP2+= no edema Skin: W/D normal turgor Lymph/Heme: No active bleeding or adenopathy Neuro: CN2-12 intact Hospital course: The patient is a 52 year old F with a hx of MARTINEZ enrolled with the [place] transplant team who had increasing confusion and unsteadiness at home with increased abdominal pain and pressure. She had only been having 2 well formed BM per day on her home medications. Her ammonia level was checked as an outpatient and was 110, she is normally around 50. She was admitted and given multiple additional doses of lactulose. The following day her ammonia level had decreased significantly. She had an abdominal ultrasound as she felt like she was very distended, however no significant ascites was seen and no paracentesis was necessary. She was instructed on the importance of having at least 3 loose bowel movement per day and that she needs to take more lactulose. She was given scripts to take a higher dose more frequently. She did have a headache while here for which she was given x doses of maxalt and fioricet. She was discharged home in stable condition. Please follow up with your PCP and your hepatologists. This patient was seen by Rosalino Tristan PA-C under the supervision of Dr. Contreras [] Discharge Diet: Low fat/ Low Cholesterol, 2000 mg Sodium Diet Discharge Activity: Return to Normal Activity Weight Bearing Status: Full weight bearing Home Medications: Medications to take at Discharge Carbamazepine 400 mg PO QHS 12/27/14 Sumatriptan Succinate [Imitrex] 100 mg PO BID PRN PRN 01/31/15 Citalopram [Celexa] 40 mg PO QHS 07/29/16 Rifaximin [Xifaxan] 1,100 mg PO QHS 05/04/17 Temazepam [Restoril] 15 mg PO QHS PRN PRN #30 capsule 06/25/17 Clonazepam [Klonopin] 1 mg PO BID PRN PRN 08/19/17 Linacolotide [Linzess] 290 mcg PO QHS 08/29/17 Omeprazole [Prilosec] 20 mg PO QHS 08/29/17 Cholecalciferol (Vitamin D3) [Vitamin D3] 5,000 unit PO DAILY 11/04/17 Zinc 50 mg PO QHS 11/04/17 Lactulose [Chronulac] 30 gm PO TID #5 bottle 11/05/17 Following Prescrptions Were Given to Patient: Lactulose [Chronulac] 30 gm PO TID #5 bottle Primary Care Physician: Anna Meza NP-C [Primary Care Provider] - Please follow up with your Primary Care Physician in: in 1-2 weeks Please Follow Up With: Hepatology - call for appointment When: 2-3 weeks Disposition: Home Minutes spent on discharge:: 40 Patient Condition:: Stable Medical Necessity - Tobacco Use Smoking Status: Never smoker Tobacco Use: Non-smoker Meaningful Use Info Meaningful Use Diagnoses (Choose all that apply): None applicable
--- NOTE | 2017-11-06 12:54 | CASEMGMT ---
RN CM DC Phone Call. Intro role of CM to patient via her listed phone number. Pt states she is ambulatory, still feels weak. Pt states hospital staff was concerned she had not had BM in hospital, but she did at home (was on lactalose for elevated ammonia level). Declines needing to review medications, dc instructions. Will make own appts for f/u. Has transportation. Miquel KENNEY RN AC
== END 2017-11-05 15:38 | disposition home or self-care (01) | DRG 205 ==
LOC: ED 18:22 → MS2 18:44
PROVIDERS: Physician Assistant; Admitting Provider Family Medicine; Emergency Provider Emergency Medicine; Family Provider Nurse Practitioner Primary Care; PCP Nurse Practitioner Primary Care; Visit Provider Internal Medicine
DX: K75.81 Nonalcoholic steatohepatitis (NASH) (principal); K72.90 Hepatic failure, unspecified without coma; K74.69 Other cirrhosis of liver; D69.59 Other secondary thrombocytopenia; G40.909 Epilepsy, unspecified, not intractable, without status epilepticus; J45.909 Unspecified asthma, uncomplicated; F41.9 Anxiety disorder, unspecified; F32.9 Major depressive disorder, single episode, unspecified; G43.909 Migraine, unspecified, not intractable, without status migrainosus; I10 Essential (primary) hypertension; Z79.899 Other long term (current) drug therapy
CPT/HCPCS: 36415; 76705; 80053; 82140; 85025; 85610; 94640; 97162; 97166; 97802; 99218; 99284; J7030; G0378; J2405

== ENCOUNTER → 2017-12-31 09:53 | Outpatient (CLI) | payer MEDICAID, SELFPAY ==
[2017-12-31 11:16] LABS: International Normalized Ratio 1.5; Prothrombin Time (Protime)PT. 18.2 SECONDS (11.7-14.9)
[2017-12-31 11:40] LABS: ALB/GLOB Ratio 0.9 RATIO (0.9-2.4); AST(SGOT) 32 U/L (15-37); Alanine Aminotransfer ALT/SGPT 26 U/L (13-56); Albumin, Serum 3.1 g/dL (3.2-5.0); Alkaline Phosphatase 133 U/L (45-117); Anion Gap 7 (5-15); BUN 5 mg/dL (7-18); BUN/Creat Ratio 7.8 RATIO (10-20); Bilirubin, Direct 0.34 mg/dL (0.00-0.30); Calcium,Total 8.2 mg/dL (8.5-10.1); Chloride 107 mmol/L (98-107); Creatinine, Serum 0.64 mg/dL (0.55-1.02); EST Glomerular Filtration Rate 104 mL/min (>60); Est Glom Filt Rate - Afr Amer 126 mL/min (>60); Globulin 3.6 g/dL (2.2-4.2); Glucose 262 mg/dL (74-106); Potassium 3.7 mmol/L (3.5-5.1); Protein, Total 6.7 g/dL (6.4-8.2); Sodium Level 142 mmol/L (136-145)
[2018-01-02 07:28] LABS: Hematocrit 39.6 % (37-47); Hemoglobin 13.6 g/dl (12.0-15.0); Mean Corp Hgb Conc 34.3 g/gl (32-36); Mean Corpuscular Hgb 31.6 pg (27.0-32.0); Mean Corpuscular Volume 91.9 fL (81-99); Mean Platelet Vol. 10.7 fl (6.2-12.0); Platelet Count 67 K/mm3 (150-450); RBC Distribution Width CV 13.7 % (11.6-14.6); RBC Distribution Width SD 45.1 fl (35.1-43.9); Red Blood Count 4.31 M/mm3 (4.2-5.4)
[2018-01-02 07:31] LABS: Scan Indicated on CBC? Y/N NO
== END ==
PROVIDERS: Family Provider Nurse Practitioner Primary Care; PCP Nurse Practitioner Primary Care
DX: Z01.818 Encounter for other preprocedural examination (principal); K75.81 Nonalcoholic steatohepatitis (NASH); K74.60 Unspecified cirrhosis of liver; K76.6 Portal hypertension; K72.90 Hepatic failure, unspecified without coma
CPT/HCPCS: 36415; 80053; 82248; 85027; 85610

== ENCOUNTER → 2018-01-02 10:56 | Outpatient (CLI) | payer MEDICAID, SELFPAY ==
[2018-01-02 11:25] LABS: Hematocrit 41.6 % (37-47); Hemoglobin 14.1 g/dl (12.0-15.0); Mean Corp Hgb Conc 33.9 g/gl (32-36); Mean Corpuscular Hgb 30.5 pg (27.0-32.0); Mean Corpuscular Volume 89.8 fL (81-99); Mean Platelet Vol. 10.2 fl (6.2-12.0); Platelet Count 63 K/mm3 (150-450); RBC Distribution Width CV 13.8 % (11.6-14.6); RBC Distribution Width SD 45.4 fl (35.1-43.9); Red Blood Count 4.63 M/mm3 (4.2-5.4); White Blood Count 6.1 K/mm3 (4.4-11.0)
[2018-01-02 11:26] LABS: Scan Indicated on CBC? Y/N NO
== END ==
PROVIDERS: Family Provider Nurse Practitioner Primary Care; PCP Nurse Practitioner Primary Care
DX: Z01.818 Encounter for other preprocedural examination (principal); K75.81 Nonalcoholic steatohepatitis (NASH); K74.60 Unspecified cirrhosis of liver; K76.6 Portal hypertension; K72.90 Hepatic failure, unspecified without coma
CPT/HCPCS: 36415; 85027

== ENCOUNTER 2018-02-08 14:47 | Emergency (ER) | payer MEDICAID, SELFPAY ==
[2018-02-08] VITALS (9 sets, daily range): BP systolic 111–141; BP diastolic 60–76; PULSE 102–131; RESP 16–28; TEMP 35.6; O2SAT 96–99; BMI 27.9
--- NOTE | 2018-02-08 15:09 | ED.VISSUMM ---
- ER Visit Summary Date of Service: 02/08/18 Chief Complaint: Shortness of breath, cough History of Present Illness: The patient is a 52 F presenting with shortness of breath and cough. She has had subjective fever, productive cough and shortness of breath. This has been ongoing for the past 2 days. She initially thought it was her allergies. She has a history of asthma. She is unable to take prednisone, she states it causes agitation. She has not tried any uzye-peh-yulbbbh medications. She states she is limited what she can take over the counter due to being on the liver transplant list. She denies abdominal pain. She has chest pain only with coughing. Denies other complaints. Physical Examination: Vitals are stable. Patient is afebrile. Alert no acute distress. HEENT exam is unremarkable. Neck is supple. Lungs are expiratory wheezing bilaterally. Heart is regular rate and rhythm. Abdomen is soft nontender nondistended. Extremities are unremarkable. Skin is warm and dry. No focal neurologic deficit. Remainder of exam is unremarkable. Emergency Department Course and Treatment: Patient was given albuterol, Atrovent aerosols. EKG is sinus rate of 85 with no acute ischemic changes. Chest x-ray shows no acute process. CBC shows platelets of 63 which is at her baseline. Chemistry showed potassium 3.3, glucose 149. Troponin is negative. Ammonia level is 43. Patient continues to complain of chest pain with coughing and with deep inspiration. She states she has history of remote PE. CTA chest was obtained and shows study limited by patient motion. No central or segmental pulmonary embolus. Clear lungs. On reevaluation, patient is now feeling improved. She is able to ambulate with a pulse ox of 96% on room air. She is given a prescription for Tessalon Perles. Advised to follow-up with her primary care physician. Advised to return to ED if worsening complaints. Disposition: Discharged home Impression: Bronchitis This note was generated with [email or web address] dictation software. It may contain incorrect words, spelling, and punctuation that were not noted in review of the chart prior to signing ED Disposition - Plan for ED Patient: Chief Complaint: Shortness of Breath Instructions: ED Upper Resp Infec No Abx Tx Prescriptions: Benzonatate [Tessalon Perle] 200 mg PO TID PRN PRN #20 capsule PRN Reason: Cough Referrals: Anna Meza, ELECTRICAL CONSTRUCTION PROJECT MANAGER-C [Primary Care Provider] -
[2018-02-08 15:27] LABS: Absolute Lymphocyte Count 1.42 X10^3/ul (0.83-4.51); Absolute Neutrophil Count 3.1 X10^3/uL (2.0-7.7); Basophil# 0.03 X10^3/uL; Basophil% 0.6 % (0-1); Eosinophil# 0.15 X10^3/uL; Eosinophils% 2.9 % (0-5); Hematocrit 39.8 % (37-47); Hemoglobin 14.2 g/dl (12.0-15.0); Lymphocyte # 1.42 X10^3/ul (4.0); Lymphocyte % 27.8 % (19-41); Mean Corp Hgb Conc 35.7 g/gl (32-36); Mean Corpuscular Hgb 31.8 pg (27.0-32.0); Mean Corpuscular Volume 89.2 fL (81-99); Mean Platelet Vol. 10.1 fl (6.2-12.0); Monocyte# 0.39 X10^3/uL; Monocyte% 7.6 % (0-10); Neutrophil # 3.12 X10^3/uL (2.7-7.7); Neutrophil % 61.1 % (47-70); POSITIVE COUNT NO; POSITIVE DIFFERENTIAL NO; POSITIVE MORPHOLOGY NO; Platelet Count 63 K/mm3 (150-450); RBC Distribution Width CV 13.7 % (11.6-14.6); RBC Distribution Width SD 44.3 fl (35.1-43.9); Red Blood Count 4.46 M/mm3 (4.2-5.4); White Blood Count 5.1 K/mm3 (4.4-11.0)
[2018-02-08] MEDS: Albuterol 2.5 MG/3 ML VIAL.NEB. INHALATION ×3 (15:33→15:58)
[2018-02-08] MEDS: Ipratropium/Albuterol Sulfate 3 ML AMPUL.NEB INHALATION (15:33)
[2018-02-08 15:44] LABS: Anion Gap 10 (5-15); BUN 3 mg/dL (7-18); BUN/Creat Ratio 5.1 RATIO (10-20); Calcium,Total 8.3 mg/dL (8.5-10.1); Chloride 111 mmol/L (98-107); Creatinine, Serum 0.59 mg/dL (0.55-1.02); EST Glomerular Filtration Rate 114 mL/min (>60); Est Glom Filt Rate - Afr Amer 138 mL/min (>60); Estimated Creatinine Clearance 102.65 ml/min; Glucose 149 mg/dL (74-106); Potassium 3.3 mmol/L (3.5-5.1); Sodium Level 145 mmol/L (136-145)
[2018-02-08] MEDS: Ketorolac 30 MG/ML Syringe IV (15:48)
[2018-02-08] MEDS: Ondansetron 4 MG/2 ML Vial IV (16:42)
[2018-02-08] MEDS: Morphine 4 MG/ML Syringe IV (16:42)
--- NOTE | 2018-02-08 18:56 | ED.DEP ---
ED Disposition - Plan for ED Patient: Chief Complaint: Shortness of Breath Instructions: ED Upper Resp Infec No Abx Tx Prescriptions: Benzonatate [Tessalon Perle] 200 mg PO TID PRN PRN #20 capsule PRN Reason: Cough Referrals: Anna Meza, [employer]-C [Primary Care Provider] -
--- NOTE | 2018-02-09 13:11 | CM.ED ---
ED CALLBACK: Follow-up call placed to patient. Patient states she is feeling not much better today. She states she has not yet filled her prescription, but plans to do so today. I encouraged patient to make an appointment with her PCP. She states she will make an appointment. Patient denies further questions or needed assistance at this time.
== END 2018-02-08 19:12 | disposition home or self-care (01) ==
LOC: ED 15:09
PROVIDERS: Emergency Provider Emergency Medicine; Family Provider Nurse Practitioner Primary Care; PCP Nurse Practitioner Primary Care
DX: J40 Bronchitis, not specified as acute or chronic (principal); J45.909 Unspecified asthma, uncomplicated; K21.9 Gastro-esophageal reflux disease without esophagitis; G40.909 Epilepsy, unspecified, not intractable, without status epilepticus; K75.81 Nonalcoholic steatohepatitis (NASH); G43.909 Migraine, unspecified, not intractable, without status migrainosus; Z86.711 Personal history of pulmonary embolism; Z79.899 Other long term (current) drug therapy
CPT/HCPCS: 36415; 71045; 71275; 80048; 82140; 84484; 85025; 93005; 94640; 96374; 96375; 99283; Q9967; A4216; J2405

== ENCOUNTER → 2018-02-13 11:54 | Outpatient (CLI) | payer MEDICAID, SELFPAY ==
[2018-02-13 12:47] LABS: Absolute Lymphocyte Count 1.14 X10^3/ul (0.83-4.51); Basophil# 0.02 X10^3/uL; Basophil% 0.4 % (0-1); Eosinophil# 0.07 X10^3/uL; Eosinophils% 1.5 % (0-5); Hematocrit 41.5 % (37-47); Hemoglobin 14.3 g/dl (12.0-15.0); Lymphocyte # 1.14 X10^3/ul (4.0); Lymphocyte % 24.9 % (19-41); Mean Corp Hgb Conc 34.5 g/gl (32-36); Mean Corpuscular Hgb 31.2 pg (27.0-32.0); Mean Corpuscular Volume 90.6 fL (81-99); Monocyte# 0.32 X10^3/uL; Neutrophil # 3.03 X10^3/uL (2.7-7.7); Neutrophil % 66.2 % (47-70); Platelet Count 71 K/mm3 (150-450); RBC Distribution Width CV 13.6 % (11.6-14.6); RBC Distribution Width SD 45.1 fl (35.1-43.9); Red Blood Count 4.58 M/mm3 (4.2-5.4); White Blood Count 4.6 K/mm3 (4.4-11.0)
[2018-02-13 12:52] LABS: POSITIVE COUNT NO; POSITIVE DIFFERENTIAL NO; POSITIVE MORPHOLOGY NO
[2018-02-13 13:03] LABS: International Normalized Ratio 1.5; Prothrombin Time (Protime)PT. 18.3 SECONDS (11.7-14.9)
[2018-02-13 13:04] LABS: Hemoglobin A1c 6.8 % (4.2-6.3)
[2018-02-13 13:21] LABS: ALB/GLOB Ratio 0.8 RATIO (0.9-2.4); AST(SGOT) 36 U/L (15-37); Alanine Aminotransfer ALT/SGPT 25 U/L (13-56); Albumin, Serum 3.2 g/dL (3.2-5.0); Alkaline Phosphatase 140 U/L (45-117); Anion Gap 9 (5-15); BUN 5 mg/dL (7-18); BUN/Creat Ratio 7.3 RATIO (10-20); Calcium,Total 8.3 mg/dL (8.5-10.1); Chloride 110 mmol/L (98-107); Creatinine, Serum 0.68 mg/dL (0.55-1.02); EST Glomerular Filtration Rate 97 mL/min (>60); Est Glom Filt Rate - Afr Amer 117 mL/min (>60); Globulin 3.9 g/dL (2.2-4.2); Glucose 138 mg/dL (74-106); Potassium 3.5 mmol/L (3.5-5.1); Protein, Total 7.1 g/dL (6.4-8.2); Sodium Level 146 mmol/L (136-145)
[2018-02-18 13:40] LABS: Vitamin D 1,25-Dihydroxy 72.6 pg/mL (19.9-79.3)
== END ==
PROVIDERS: Family Provider Nurse Practitioner Primary Care; PCP Nurse Practitioner Primary Care
DX: K74.60 Unspecified cirrhosis of liver (principal)
CPT/HCPCS: 36415; 80053; 82652; 83036; 85025; 85610

== ENCOUNTER 2018-02-23 12:23 | Emergency (ER) | payer MEDICAID, SELFPAY ==
[2018-02-23 12:23] VITALS: BP 162/83; PULSE 110; RESP 18; TEMP 36.6; O2SAT 94; BMI 27.4
--- NOTE | 2018-02-23 13:12 | CT_ITS ---
STUDY: CT ABDOMEN AND PELVIS WITHOUT CONTRAST REASON FOR EXAM: Female, 52 years old. 6 day history of right flank pain. One month history of mid abdominal pain. RADIATION DOSAGE (If Supplied By Facility): CTDIvol = ( 9.34 ) mGy, DLP = ( 492.62 ) mGycm TECHNIQUE: Transaxial images were obtained from the dome of the diaphragm to the symphysis pubis without oral contrast, and without intravenous contrast. Sagittal and coronal images were reconstructed. Individualized dose optimization techniques were used for this CT. COMPARISON: Comparison is made with prior study dated May 04, 2017. FINDINGS: Stable mild degree of increased linear markings at the lung bases suggestive of mild atelectasis and/or scarring. The visualized portions of the heart are within normal limits. Normal liver. Findings suggestive of possible varices in the splenic hilum. There is nonvisualization of the gallbladder most likely secondary to prior cholecystectomy. There is moderate splenomegaly. Normal pancreas. Normal bilateral adrenal glands. Normal right kidney. Normal left kidney. There is a retroaortic left renal vein. There is a small hiatal hernia. Normal small intestine. Normal colon. The appendix is visualized and appears normal. There is scattered atherosclerotic calcification of the abdominal aorta, without a demonstrated aneurysm. Normal inferior vena cava. There is borderline retroperitoneal lymphadenopathy with enlarged nodes no greater than 10mm in the short axis diameter. Mild degree of her bladder wall thickening. There is absence of the uterus consistent with a prior hysterectomy. Small bilateral inguinal lymph nodes. Normal abdominal wall. Loss of height of the superior endplates of the L1 and L2 vertebrae. CT/Abdomen/Pelvis without Cont IMPRESSION: Splenomegaly. 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 Electronically Signed: Terrance Kim MD at 14:16 EDT Tel [phone], Service support ,
[2018-02-23] MEDS: 0.9% Normal Saline 1,000 ML 1000 ML IV (13:31)
[2018-02-23] MEDS: Ondansetron 4 MG/2 ML Vial IV (13:31)
[2018-02-23] MEDS: Morphine 4 MG/ML Syringe IV (13:31)
[2018-02-23 13:34] LABS: Absolute Lymphocyte Count 1.29 X10^3/ul (0.83-4.51); Absolute Neutrophil Count 2.8 X10^3/uL (2.0-7.7); Basophil# 0.01 X10^3/uL; Basophil% 0.2 % (0-1); Eosinophil# 0.06 X10^3/uL; Eosinophils% 1.3 % (0-5); Hematocrit 41.1 % (37-47); Hemoglobin 14.2 g/dl (12.0-15.0); Lymphocyte # 1.29 X10^3/ul (4.0); Lymphocyte % 28.8 % (19-41); Mean Corp Hgb Conc 34.5 g/gl (32-36); Mean Corpuscular Hgb 30.6 pg (27.0-32.0); Mean Corpuscular Volume 88.6 fL (81-99); Mean Platelet Vol. 10.3 fl (6.2-12.0); Monocyte# 0.27 X10^3/uL; Neutrophil # 2.84 X10^3/uL (2.7-7.7); Neutrophil % 63.5 % (47-70); Platelet Count 65 K/mm3 (150-450); RBC Distribution Width CV 13.2 % (11.6-14.6); RBC Distribution Width SD 42.8 fl (35.1-43.9); Red Blood Count 4.64 M/mm3 (4.2-5.4); White Blood Count 4.5 K/mm3 (4.4-11.0)
[2018-02-23 13:37] LABS: AST(SGOT) 43 U/L (15-37); Alanine Aminotransfer ALT/SGPT 27 U/L (13-56); Alkaline Phosphatase 151 U/L (45-117); Anion Gap 9 (5-15); BUN 5 mg/dL (7-18); BUN/Creat Ratio 7.5 RATIO (10-20); Bilirubin, Direct 0.57 mg/dL (0.00-0.30); Calcium,Total 8.7 mg/dL (8.5-10.1); Chloride 104 mmol/L (98-107); Creatinine, Serum 0.67 mg/dL (0.55-1.02); EST Glomerular Filtration Rate 99 mL/min (>60); Est Glom Filt Rate - Afr Amer 119 mL/min (>60); Estimated Creatinine Clearance 90.39 ml/min; Globulin 4.1 g/dL (2.2-4.2); Glucose 343 mg/dL (74-106); Lipase 112 U/L (73-393); Potassium 3.6 mmol/L (3.5-5.1); Protein, Total 7.1 g/dL (6.4-8.2); Sodium Level 138 mmol/L (136-145)
[2018-02-23 13:40] LABS: POSITIVE COUNT NO; POSITIVE DIFFERENTIAL NO; POSITIVE MORPHOLOGY NO
[2018-02-23 13:46] LABS: Mucous, Urine 0 SEEN /hpf (<or=2+); Red Blood Cells-Urine 0 SEEN /hpf (0-5)
[2018-02-23 13:55] LABS: International Normalized Ratio 1.4; Prothrombin Time (Protime)PT. 17.6 SECONDS (11.7-14.9)
[2018-02-23 14:14] LABS: Color, Urine Yellow (Yellow); Glucose, Dipstick 1000 mg/dl (Normal); Ketone-Dipstick Negative (Negative); Leukocyte Esterase-Dipstick Negative /ul (Negative); Nitrite-Dipstick Positive (Negative); Occult Blood-Urine Negative /ul (Negative); Protein-Dipstick Negative (Negative); Urine Bilirubin Dipstick Negative (Negative); Urine Clarity Sl. Cloudy (Clear); Urine Urobilinogen 1 mg/dl (Normal)
[2018-02-23 14:28] LABS: Bacteria RARE /hpf (None Seen); Squamous Epithelial Cells - UA 0-5 SEEN /hpf (5-10); White Blood Cells 0-5 SEEN /hpf (0-5)
[2018-02-23 15:09] VITALS: BP 132/82; PULSE 70; RESP 18; O2SAT 96
[2018-02-23] MEDS: HYDROcodone Bitartrate/Apap 5/325 Tablet PO (15:14)
[2018-02-23] MEDS: Nitrofurantoin Macrocrystals 100 MG Capsule PO (15:15)
--- NOTE | 2018-02-23 15:25 | ED.DCSUM_ITS ---
- ER Visit Summary Date of Service: 02/23/18 Chief Complaint: [R Flank pain] History of Present Illness: The patient is a 52 F [presents with progressive right flank pain for about 1 week. She also describes some dysuria and urinary frequency. She states she has a prior history of kidney stones. She also has a history of MARMOLEJO and is on the kidney transplant list. Incidentally she mentions a nonspecific abdominal itching rash that is chronic and unchanged. She overall appears well and nontoxic. No fevers. She had some vomiting earlier in the week but this has resolved. She has no other complaints.] Physical Examination: [General: The patient appears well and in no apparent distress. Patient is resting comfortably on cart. Skin: Warm, dry, no pallor noted. Nonspecific dermatitis type rash anterior abdomen, no cellulitis or abscess.. Head: Normocephalic, atraumatic Neck: Supple, nontender. Eye: PERRLA, EOMI. No jaundice or scleral icterus. ENT: Moist mucus membranes, pharynx within normal limits. Cardiovascular: Regular Rate and Rhythm, no gallups or rubs Respiratory: Patient is in no distress, no accessory muscle use, lungs are clear to auscultation, no wheezing, rales or rhonchi Musculoskeletal: normal ROM, no deformity, no tenderness, no swelling. 2+ radial and DP pulses symmetric. GI: No tenderness to palpation, no masses appreciated. No rebound, guarding, or rigidity noted. Mild R CVA tenderness. Neurological: A&O, normal strength and sensation. Psychiatric: Cooperative] Test Results: [Urinalysis positive for nitrites and bacteria. Blood work overall unremarkable other than glucose of 343. Patient ate prior to arrival. Her total bilirubin, direct bilirubin, alkaline phosphatase, and AST are mildly elevated but are similar to prior values. Her INR is 1.4. Ammonia is 65. CT imaging showed splenomegaly and possible splenic varices as well as bladder wall thickening. No ureteral stones or urinary obstruction. ] Emergency Department Course and Treatment: [On reevaluation at 1455 patient states she feels improved. Her vitals remained stable. Patient will be treated with a short course of Percocet which she states she has tolerated well in the past and been prescribed by her liver specialist when she has pain in short durations. She will also be placed on Macrobid for acute cystitis. I do not feel she has any evidence of acute surgical process or peritonitis. She was instructed to follow closely with her primary provider and has an appointment with her liver specialist tomorrow. She was advised to return to the emergency department with any new or worsening symptoms. Patient understands and is agreeable with this plan of care. Patient was discharged home in stable and improved condition.] Treatment Plan: [see above] Disposition: [discharge home, stable and improved condition] Impression: [Acute right flank pain - improved, Acute cystitis] This note was generated with [employer] dictation software. It may contain incorrect words, spelling, and punctuation that were not noted in review of the chart prior to signing ED Disposition - Plan for ED Patient: Disposition: Home or Assisted Living Chief Complaint: Flank Pain Instructions: ED Flank Pain Uncertain Cause, ED UTI Cystitis Female Prescriptions: Oxycodone HCl/Acetaminophen [Percocet 5/325] 1 tab PO Q6H PRN PRN 3 Days #12 tab PRN Reason: Pain Nitrofurantoin Macrocrystals [Macrobid] 100 mg PO Q12 #14 cap Referrals: Anna Meza NP-C [Primary Care Provider] -
== END 2018-02-23 15:30 | disposition home or self-care (01) ==
PROVIDERS: Emergency Provider Emergency Medicine; Family Provider Nurse Practitioner Primary Care; PCP Nurse Practitioner Primary Care
DX: N30.00 Acute cystitis without hematuria (principal); R10.9 Unspecified abdominal pain; L30.9 Dermatitis, unspecified; K75.81 Nonalcoholic steatohepatitis (NASH); Z87.442 Personal history of urinary calculi; Z79.899 Other long term (current) drug therapy
CPT/HCPCS: 74176; 80048; 80076; 81001; 82140; 83690; 85025; 85610; 87086; 96361; 96374; 96375; 99284; J7030; A4216; J2405

== ENCOUNTER 2018-03-09 09:12 | Observation (INO) | payer MEDICAID, SELFPAY ==
[2018-03-09 09:14] VITALS: BP 116/67; PULSE 102; RESP 15; TEMP 36.6; O2SAT 95; BMI 28.8
--- NOTE | 2018-03-09 09:22 | ED.VISSUMM ---
- ER Visit Summary Date of Service: 03/09/18 Chief Complaint: Lethargy History of Present Illness: The patient is a [address] Waite. 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 She has a history of nonalcoholic cirrhosis with esophageal varices. She reports that over the past week she has had gradually increasing lethargy. States that she slept all day yesterday. She reports that she continues to take her lactulose. However, she denies any diarrhea. Patient reports that she has abdominal pain that is been off and on for a long time. It began again this week. 7 out of 10 severity currently and 8 out of 10 at worst. She describes it as sharp. She also complains of a headache that is throbbing in character. Is 5 out of 10 severity. She does have history of similar headaches. Finally she complains of generalized weakness. Physical Examination: Vitals: Stable. Afebrile. General: Well-nourished and well-developed. Head: Normocephalic atraumatic. Neck: Supple, no lymphadenopathy. No JVD. Nontender. Cardiovascular: Regular rate and rhythm. No murmurs. Respiratory: No respiratory distress. Clear to auscultation bilaterally. Abdominal: Soft, moderate tenderness palpation just to the right of her umbilicus. No Garcia sign, nondistended, normal bowel sounds. No guarding, rebound, or peritoneal signs. Back: Nontender. Extremities: Nontender, no edema. Skin: Normal color, no rash. Neurologic: Alert and oriented ?3. Cranial nerves II through XII are intact. Normal strength and sensation. Psych: Normal affect. Test Results: CBC is more for platelets of 62. Chem-7 is more for chloride 110, glucose 119, BUN 3, creatinine 0.47, calcium 8.3. LFTs marked for total bili 1.40, direct bili of 0.47, alk phos 136, albumin 2.8. INR is 1.7. Lipase is 125. Tegretol level is 5.4. Ammonia level is 88. Emergency Department Course and Treatment: Patient was given dose of morphine and Reglan IV. She is resting comfortably. She did have an ultrasound ordered and the results are pending. Treatment Plan: Patient was discussed with Dr. Contreras. She will be admitted to the hospital for further evaluation and treatment. Her meld score is 14. Disposition: Admitted in improved condition. Impression: 1. Hepatic encephalopathy. 2. Nonalcoholic cirrhosis. This note was generated with [employer] dictation software. It may contain incorrect words, spelling, and punctuation that were not noted in review of the chart prior to signing ED Disposition - Plan for ED Patient: Disposition: Home or Assisted Living Chief Complaint: Abn Labs Referrals: Anna Meza, YARIEL-C [Primary Care Provider] -
--- NOTE | 2018-03-09 09:37 | US_ITS ---
STUDY: ABDOMINAL ULTRASOUND REASON FOR EXAM: Female, 52 years old. MARMOLEJO . TECHNIQUE: Transabdominal ultrasound was performed with real-time and static easton scale imaging. TECHNICAL QUALITY: Adequate. COMPARISON: Comparison is made with prior ultrasound of the abdomen dated November 04, 2017. FINDINGS: Liver: The liver measures 15.9 cm. There is increased echogenicity consistent with fatty infiltration. The bile ducts are within normal limits. There is hepatic color flow. The direction of portal flow is hepatopetal. There is no demonstrated mass lesion. Portal vein measurement: Gallbladder: The patient is status post cholecystectomy. Common Bile Duct (C.B.D.): The common bile duct measures 6.0 mm. Pancreas: There is nonvisualization of the pancreas due to overlying bowel gas. Spleen: There is moderate splenomegaly. The spleen measures 18.5 cm x 6.7 cm x 5.9 cm. Right Kidney: Normal size of the right kidney. The right kidney measures 11.5 cm x 5.9 cm x 5.5 cm. Normal renal cortex. The right cortex measures 1.9 cm. There is no demonstrated renal mass or cyst. There is no right hydronephrosis. Left Kidney: Normal size of the left kidney. The left kidney measures 12.4 cm x 6.9 cm x 6.3 cm. Normal renal cortex. The left cortex measures 1.9 cm. There is no demonstrated renal mass or cyst. There is no left hydronephrosis. Aorta: Unremarkable I.V.C.: The IVC is patent. There is no ascites. US/Abdomen Complete IMPRESSION: Splenomegaly. Fatty infiltration of the liver. Electronically Signed: Terrance Kim MD at 11:38 EDT Tel [phone], Service support ,
[2018-03-09] MEDS: 0.9% Normal Saline 1,000 ML 1000 ML IV (09:52)
[2018-03-09] MEDS: Morphine 4 MG/ML Syringe IV (09:52)
[2018-03-09] MEDS: Metoclopramide 10 MG/2 ML Vial IV (09:52)
[2018-03-09 10:01] LABS: Absolute Lymphocyte Count 1.29 X10^3/ul (0.83-4.51); Absolute Neutrophil Count 2.8 X10^3/uL (2.0-7.7); Basophil# 0.02 X10^3/uL; Basophil% 0.4 % (0-1); Eosinophils% 2.2 % (0-5); Hematocrit 38.9 % (37-47); Hemoglobin 13.2 g/dl (12.0-15.0); Lymphocyte # 1.29 X10^3/ul (4.0); Lymphocyte % 28.2 % (19-41); Mean Corp Hgb Conc 33.9 g/gl (32-36); Mean Corpuscular Hgb 30.7 pg (27.0-32.0); Mean Corpuscular Volume 90.5 fL (81-99); Mean Platelet Vol. 9.8 fl (6.2-12.0); Monocyte# 0.37 X10^3/uL; Monocyte% 8.1 % (0-10); Neutrophil # 2.79 X10^3/uL (2.7-7.7); Neutrophil % 60.9 % (47-70); Platelet Count 62 K/mm3 (150-450); RBC Distribution Width CV 13.3 % (11.6-14.6); RBC Distribution Width SD 43.5 fl (35.1-43.9); White Blood Count 4.6 K/mm3 (4.4-11.0)
[2018-03-09 10:02] LABS: POSITIVE COUNT NO; POSITIVE DIFFERENTIAL NO; POSITIVE MORPHOLOGY NO
[2018-03-09 10:12] LABS: International Normalized Ratio 1.7; Prothrombin Time (Protime)PT. 19.7 SECONDS (11.7-14.9)
[2018-03-09 10:23] LABS: AST(SGOT) 35 U/L (15-37); Alanine Aminotransfer ALT/SGPT 20 U/L (13-56); Albumin, Serum 2.8 g/dL (3.2-5.0); Alkaline Phosphatase 136 U/L (45-117); Anion Gap 5 (5-15); BUN 3 mg/dL (7-18); BUN/Creat Ratio 6.4 RATIO (10-20); Bilirubin, Direct 0.47 mg/dL (0.00-0.30); Calcium,Total 8.3 mg/dL (8.5-10.1); Chloride 110 mmol/L (98-107); Creatinine, Serum 0.47 mg/dL (0.55-1.02); EST Glomerular Filtration Rate 148 mL/min (>60); Est Glom Filt Rate - Afr Amer 179 mL/min (>60); Estimated Creatinine Clearance 128.86 ml/min; Globulin 3.7 g/dL (2.2-4.2); Glucose 119 mg/dL (74-106); Lipase 125 U/L (73-393); Potassium 3.8 mmol/L (3.5-5.1); Protein, Total 6.5 g/dL (6.4-8.2); Sodium Level 143 mmol/L (136-145)
[2018-03-09 10:26] VITALS: BP 99/63
[2018-03-09 10:28] LABS: Carbamazepine (Tegretol) 5.4 ug/mL (4.0-12.0)
[2018-03-09 12:45] VITALS: BMI 28.8
[2018-03-09 12:46] VITALS: BMI 28.8
[2018-03-09 12:49] VITALS: BP 103/64; PULSE 75; RESP 16; TEMP 36.4; O2SAT 97
--- NOTE | 2018-03-09 13:16 | PCM.HP.STD ---
Problem List (1) Hepatic encephalopathy Status: Acute (2) MARMOLEJO (nonalcoholic steatohepatitis) Status: Chronic (3) Migraine Status: Chronic Qualifiers: (4) Asthma Status: Chronic Qualifiers: (5) Hiatal hernia Status: Chronic (6) Esophageal varices Status: Chronic Qualifiers: Comment: numerous banding (7) Seizures Status: Chronic Comment: last known 11/2016 History of Present Illness Date of Admission: 03/09/18 Chief Complaint: lethargy The patient is a 52 year old F with a hx of MARMOLEJO, migraine, seizures, asthma, esophageal varices, htn, who presented to the ER with increased lethargy. She has been increasingly tired for the past week and notes that she has been forgetting to take her lactulose. She states that if her fiance does not remind her she does not take it, and he has been out of town. She has not moved her bowels since friday, and her BMs have not been regular. At most she has 3 well formed stools per day. She thinks one of her doctors told her to decrease the lactulose. She had some nausea and vomiting a few days ago, but none since. She also complains of abdominal pain behind the belly button. No distention. No LE edema. No SOB or cough. [] Past Medical History Past Medical History (Chronic Problems): Chronic Problems MARMOLEJO (nonalcoholic steatohepatitis) (Chronic) Migraine (Chronic) Asthma (Chronic) Hiatal hernia (Chronic) Esophageal varices (Chronic) numerous banding Seizures (Chronic) last known 11/2016 Allergies diphenhydramine HCl [From Benadryl] Adverse Reaction (Verified 03/09/18 09:13) climb [place] [facility] lorazepam [From Ativan] Adverse Reaction (Verified 03/09/18 09:13) Climb the rose SHE FEELS LIKE SHE WANTS TO CLIMB THE ROSE prednisone Adverse Reaction (Verified 03/09/18 09:13) Other prochlorperazine edisylate [From Compazine] Adverse Reaction (Verified 03/09/18 09:13) climb [place] [facility]IM[facility] [place] prochlorperazine maleate [From Compazine] Adverse Reaction (Verified 03/09/18 09:13) climb out of my body CLIMB OUT OF MY BODY promethazine HCl [From Phenergan] Adverse Reaction (Verified 03/09/18 09:13) climb [place] rose CLIMB [place] RO[place] topiramate [From Topamax] Adverse Reaction (Verified 03/09/18 09:13) Other tramadol Adverse Reaction (Verified 03/09/18 09:13) climb the rose feels like going to climb rose Home Medications: Ambulatory Orders Medication Instructions Recorded Carbamazepine 400 mg PO QHS 12/27/14 Sumatriptan Succinate [Imitrex] 100 mg PO BID PRN PRN 01/31/15 Citalopram [Celexa] 40 mg PO QHS 07/29/16 Rifaximin [Xifaxan] 1,100 mg PO QHS 05/04/17 Temazepam [Restoril] 15 mg PO QHS PRN PRN #30 capsule 06/25/17 Clonazepam [Klonopin] 1 mg PO BID PRN PRN 08/19/17 Linacolotide [Linzess] 290 mcg PO QHS 08/29/17 Omeprazole [Prilosec] 20 mg PO QHS 08/29/17 Cholecalciferol (Vitamin D3) 5,000 unit PO DAILY 11/04/17 [Vitamin D3] Zinc 50 mg PO QHS 11/04/17 Lactulose [Chronulac] 30 gm PO TID #5 bottle 11/05/17 Albuterol Inhaler [Ventolin Hfa 1 - 2 puff INHALATION Q4H PRN PRN 02/08/18 (SP)] Benzonatate [Tessalon Perle] 200 mg PO TID PRN PRN #20 capsule 02/08/18 Mometasone/Formoterol [Dulera 200 2 puff IN QHS 02/08/18 Mcg/5 Mcg Inhaler] Oxycodone HCl/Acetaminophen 1 tab PO Q6H PRN PRN 3 Days #12 tab 02/23/18 [Percocet 5/325] Surgical History: cholecystectomy, hysterectomy, total knee arthroplasty, - - cholecystectomy, partial hysterectomy, right shoulder replacement secondary to fall secondary to seizure, bilateral knee arthroscopic Psychiatric History: Anxiety, Depression [employer]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 Denies: Chills, Fever, Weight Change HEENT: Denies: Head Aches, Sinus Congestion, Sinus Drainage Cardiovascular: Denies: Chest Pain, Palpitations Respiratory: Denies: Cough, Shortness of breath at rest, Sputum production Gastrointestinal: Reports: Abdominal Pain, Nausea, Vomiting Genitourinary: Denies: Dysuria Musculoskeletal: Denies: Joint Pain, Joint Tenderness Skin: Denies: Rash, Wounds Neurological: Denies: Numbness, Tingling, Focal weakness Psychiatric: Denies: Anxiety, Depression, Homicidal Ideations, Suicidal Ideations Hematologic/ Lymphatic: Denies: Easy Bruising, Easy Bleeding VTE Information - Inpt Only VTE Present on Admission: No VTE Mechan Device Prophylaxis: SCD's VTE Pharm Prophylaxis ordered?: No - Physical Exam General: Alert, Oriented x3, Cooperative, Lethargic HEENT: Atraumatic, PERRLA, EOMI, Normocephalic Neck: Supple, No JVD, Negative Carotid Bruits Lungs: Clear to auscultation, Normal air movement Cardiovascular: Regular rate, No murmurs Abdomen: Bowel Sounds Present, Soft, Tender - midepigastric region to moderate palp Extremities: No edema, Capillary Refill Less than 3 Seconds Skin: No rashes, No breakdown Musculoskeletal: No Tenderness to Palpation of Joints or Extremities Neurological: Cranial nerves II-XII grossly intact Psych/Mental Status: Normal Affect, Appropriate, Alert and oriented to time, place, person, mood and affect Vital Signs Temp Pulse Resp BP Pulse Ox 97.6 F L 75 16 103/64 97 03/09/18 12:49 03/09/18 12:49 03/09/18 12:49 03/09/18 12:49 03/09/18 12:49 Oxygen Delivery Method Room Air Weight: 173 lb 4.533 oz Body Mass Index (BMI) 28.8 Assessment/Plan All Active Problems Hepatic encephalopathy (Acute) 1. Hepatic encephalopathy 2/2 MARMOLEJO, poor lactulose compliance - Ammonia 88. increased lactulose doses ordered. Continue xifaxan. IV fluids. Clear liquid diet. Lethargic but A/Ox3 at this time. US shows fatty liver dz and splenomegaly. Mild elevation in LFTs, low platelets (near baseline), INR 1.7. 2. Hx esophageal varices - treat nausea, avoid blood thinners. Prior bands 3. HTN - stable 4. Hx seizures and migraine - continue home meds, tegretol level normal. Mild TAYLOR. 5. Asthma - no SOB/wheezing DVT ppx: SCDs DC planning: may be able to return home if improved tomorrow This patient was seen by Rosalino Tristan PA-C under the supervision of Doctor Contreras.
[2018-03-09] MEDS: Lactulose 20 GM/30 ML UDC 30 GM PO (13:38)
[2018-03-09] MEDS: oxyCODONE 5 MG Tablet PO ×3 (13:45→22:27)
[2018-03-09 15:34] VITALS: BP 91/57; PULSE 76; RESP 16; TEMP 36.4; O2SAT 96
[2018-03-09] MEDS: Lactulose 20 GM/30 ML UDC PO ×2 (17:37→22:25)
[2018-03-09 20:10] VITALS: BP 102/58; PULSE 87; RESP 16; TEMP 36.9; O2SAT 94
[2018-03-09] MEDS: carBAMazepine 200 MG Tablet 400 MG PO (22:25)
[2018-03-09] MEDS: rifAXIMin 550 MG Tablet PO (22:25)
[2018-03-09] MEDS: Citalopram 40 MG TABLET PO (22:25)
[2018-03-09] MEDS: Pantoprazole Sodium 20 MG Tablet PO (22:25)
[2018-03-10] MEDS: Lactulose 20 GM/30 ML UDC PO ×6 (01:37→14:35)
[2018-03-10 01:38] VITALS: BP 118/72; PULSE 105; RESP 16; TEMP 37.6; O2SAT 94
[2018-03-10] MEDS: oxyCODONE 5 MG Tablet PO ×2 (05:37→12:00)
[2018-03-10] MEDS: Ondansetron 4 MG/2 ML Vial IV (06:32)
[2018-03-10] MEDS: 0.9% NaCl Peripheral Flush Adult/Peds IV (06:32)
[2018-03-10] MEDS: rifAXIMin 550 MG Tablet PO (08:42)
[2018-03-10 08:45] VITALS: BP 112/67; PULSE 98; RESP 14; TEMP 36.9; O2SAT 93
[2018-03-10 09:53] LABS: AFP, Tumor Marker 6.5 ng/mL (0.0-8.3)
--- NOTE | 2018-03-10 14:17 | PCM.PROGNOTE ---
Subjective: Still feels lethargic. No BM since admission. +flatus. Complains of TAYLOR and belly button abdominal pain. - Physical Exam General: Alert, Oriented x3, Cooperative HEENT: Atraumatic, PERRLA, EOMI, Normocephalic Neck: Supple, No JVD, Negative Carotid Bruits Lungs: Clear to auscultation, Normal air movement Cardiovascular: Regular rate, No murmurs Abdomen: Bowel Sounds Present, Soft, Tender - mild, mid abdominal Extremities: No edema, Capillary Refill Less than 3 Seconds Skin: No rashes, No breakdown Musculoskeletal: No Tenderness to Palpation of Joints or Extremities Neurological: Cranial nerves II-XII grossly intact Psych/Mental Status: Normal Affect, Appropriate, Alert and oriented to time, place, person, mood and affect Vital Signs Temp Pulse Resp BP Pulse Ox 98.4 F 98 14 112/67 93 03/10/18 08:45 03/10/18 08:45 03/10/18 08:45 03/10/18 08:45 03/10/18 08:45 Oxygen Delivery Method Room Air Weight: 173 lb 4.533 oz Body Mass Index (BMI) 28.8 Intake and Output for Last 24 Hours 03/08/18 03/09/18 03/10/18 23:59 23:59 23:59 Intake Total 650 / 650 240 / 240 Balance 650 / 650 240 / 240 Laboratory Tests Past 24 Hrs 03/09/18 03/09/18 03/10/18 09:50 16:55 06:10 Ammonia 82.0 H 68.0 H Tumor Marker AFP 6.5 Medical Necessity - Tobacco Use Smoking Status: Never smoker Tobacco Use: Non-smoker Assessment/Plan All Active Problems Hepatic encephalopathy (Acute) 1. Hepatic encephalopathy 2/2 MARMOLEJO, poor lactulose compliance - Ammonia 88 decreased since admission. Continue xifaxan. IV fluids. Clear liquid diet. Lethargic but A/Ox3 at this time. US shows fatty liver dz and splenomegaly. Mild elevation in LFTs, low platelets (near baseline), INR 1.7. -no bm yet, start lactulose q1h until 1st bm + flatus 2. Hx esophageal varices - treat nausea, avoid blood thinners. Prior bands 3. HTN - stable 4. Hx seizures and migraine - continue home meds, tegretol level normal. Mild TAYLOR. 5. Asthma - no SOB/wheezing DVT ppx: SCDs DC planning: may be able to return home if improved tomorrow This patient was seen by Rosalino Tristan PA-C under the supervision of Doctor Contreras.
--- NOTE | 2018-03-10 14:20 | PN_ITS ---
Addendum entered and electronically signed by FERNANDA Deng 03/10/18 14:22: Code Visit Please disregard the last addendum it was entered in error. Addendum entered and electronically signed by FERNANDA Deng 03/10/18 14:22: Code Visit Add to problem list : Urinary retention - pt could not urinate and had >500 cc in bladder. Alvarez placed, flomax started. Voiding trial before dc. Outpatient urology follow up. Original Note: Subjective: Still feels lethargic. No BM since admission. +flatus. Complains of TAYLOR and belly button abdominal pain. - Physical Exam General: Alert, Oriented x3, Cooperative HEENT: Atraumatic, PERRLA, EOMI, Normocephalic Neck: Supple, No JVD, Negative Carotid Bruits Lungs: Clear to auscultation, Normal air movement Cardiovascular: Regular rate, No murmurs Abdomen: Bowel Sounds Present, Soft, Tender - mild, mid abdominal Extremities: No edema, Capillary Refill Less than 3 Seconds Skin: No rashes, No breakdown Musculoskeletal: No Tenderness to Palpation of Joints or Extremities Neurological: Cranial nerves II-XII grossly intact Psych/Mental Status: Normal Affect, Appropriate, Alert and oriented to time, place, person, mood and affect Vital Signs Temp Pulse Resp BP Pulse Ox 98.4 F 98 14 112/67 93 03/10/18 08:45 03/10/18 08:45 03/10/18 08:45 03/10/18 08:45 03/10/18 08:45 Oxygen Delivery Method Room Air Weight: 173 lb 4.533 oz Body Mass Index (BMI) 28.8 Intake and Output for Last 24 Hours 03/08/18 03/09/18 03/10/18 23:59 23:59 23:59 Intake Total 650 / 650 240 / 240 Balance 650 / 650 240 / 240 Laboratory Tests Past 24 Hrs 03/09/18 03/09/18 03/10/18 09:50 16:55 06:10 Ammonia 82.0 H 68.0 H Tumor Marker AFP 6.5 Medical Necessity - Tobacco Use Smoking Status: Never smoker Tobacco Use: Non-smoker Assessment/Plan All Active Problems Hepatic encephalopathy (Acute) 1. Hepatic encephalopathy 2/2 MARMOLEJO, poor lactulose compliance - Ammonia 88 decreased since admission. Continue xifaxan. IV fluids. Clear liquid diet. Lethargic but A/Ox3 at this time. US shows fatty liver dz and splenomegaly. Mild elevation in LFTs, low platelets (near baseline), INR 1.7. -no bm yet, start lactulose q1h until 1st bm + flatus 2. Hx esophageal varices - treat nausea, avoid blood thinners. Prior bands 3. HTN - stable 4. Hx seizures and migraine - continue home meds, tegretol level normal. Mild TAYLOR. 5. Asthma - no SOB/wheezing DVT ppx: SCDs DC planning: may be able to return home if improved tomorrow This patient was seen by Rosalino Tristan PA-C under the supervision of Doctor Contreras.
[2018-03-10 14:30] VITALS: BP 105/70; PULSE 92; RESP 18; TEMP 36.6; O2SAT 94
--- NOTE | 2018-03-10 16:19 | DCINST_ITS ---
You will use the following diet at home:: Cardiac Your food should be the consistency of: Regular Your liquids should be the consistency of: Regular/Thin Discharge Activity: Return to Normal Activity Allergies/Adverse Reactions: Allergies diphenhydramine HCl [From Benadryl] Adverse Reaction (Verified 03/09/18 09:13) climb [place] [facility]IM[facility] [place] [facility] lorazepam [From Ativan] Adverse Reaction (Verified 03/09/18 09:13) Climb the rose SHE FEELS LIKE SHE WANTS TO CLIMB THE ROSE prednisone Adverse Reaction (Verified 03/09/18 09:13) Other prochlorperazine edisylate [From Compazine] Adverse Reaction (Verified 03/09/18 09:13) climb [place] [facility]IM[facility] [place] prochlorperazine maleate [From Compazine] Adverse Reaction (Verified 03/09/18 09:13) climb out of my body CLIMB OUT OF MY BODY promethazine HCl [From Phenergan] Adverse Reaction (Verified 03/09/18 09:13) climb [place] rose CLIMB [place] RO[place] topiramate [From Topamax] Adverse Reaction (Verified 03/09/18 09:13) Other tramadol Adverse Reaction (Verified 03/09/18 09:13) climb the rose feels like going to climb rose Medications to take at Discharge Carbamazepine 400 mg PO QHS 12/27/14 Sumatriptan Succinate [Imitrex] 100 mg PO BID PRN PRN 01/31/15 Citalopram [Celexa] 40 mg PO QHS 07/29/16 Rifaximin [Xifaxan] 550 mg PO BID 05/04/17 Temazepam [Restoril] 15 mg PO QHS PRN PRN #30 capsule 06/25/17 Clonazepam [Klonopin] 1 mg PO BID PRN PRN 08/19/17 Linacolotide [Linzess] 290 mcg PO QHS 08/29/17 Omeprazole [Prilosec] 20 mg PO QHS 08/29/17 Cholecalciferol (Vitamin D3) [Vitamin D3] 5,000 unit PO DAILY 11/04/17 Zinc 50 mg PO QHS 11/04/17 Lactulose [Chronulac] 30 gm PO TID #5 bottle 11/05/17 Albuterol Inhaler [Ventolin Hfa] 1 - 2 puff INHALATION Q4H PRN PRN 02/08/18 Benzonatate [Tessalon Perle] 200 mg PO TID PRN PRN #20 capsule 02/08/18 Mometasone/Formoterol [Dulera 200 Mcg/5 Mcg Inhaler] 2 puff IN QHS 02/08/18 Oxycodone HCl/Acetaminophen [Percocet 5-325] 1 tab PO Q6H PRN PRN 3 Days #12 tab 02/23/18 Primary Care Physician: Anna Meza, YARIEL-C [Primary Care Provider] - Please follow up with your Primary Care Physician in: 1-2 weeks Test Results: Test results from this visit will be discussed in further detail at your follow- up appointment, if applicable. Please Follow Up With: Hepatology - Transplant team When: As directed Proposed Discharge Date: 03/10/18
--- NOTE | 2018-03-10 16:19 | PCM.DC.SUM ---
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 Fatty infiltration of the liver. Operations: None Procedures: None Summary of Care Provided: Physical exam on day of discharge: See daily progress note. Hospital course: The patient is a 52 year old F with past medical history of Jewell, prior admissions for hepatic encephalopathy, migraine, seizure, hypertension, asthma who presented to the emergency room with increased lethargy. She reported that she has difficulty taking her lactulose at home and requires her fianc? to remind her to take it. She stated that she had not taken it in several days and had not had a bowel movement for several days. Ammonia level was elevated at 88. Abdominal ultrasound was done and demonstrated prior chronic changes. She is admitted to the medical surgical floor and started on q. 4 hour lactulose. She did not start having a bowel movement overnight and was increased to hourly lactulose after which point she had large volume bowel movements. This episode was likely secondary to not being strictly compliant with lactulose and and not self titrating her lactulose at home. We reiterated the importance of taking the lactulose as prescribed and if not having a bowel movement that it was okay to take extra doses of lactulose in order to achieve 3 loose bowel movements daily. Her ammonia level was decreasing, and her bowels were very active so she was discharged home in stable condition. She will need to follow-up with her PCP and with her transplant team. This patient was seen by Rosalino Tristan PA-C under the supervision of Doctor Contreras. [] Discharge Diet: Low fat/ Low Cholesterol, 2000 mg Sodium Diet Discharge Activity: Return to Normal Activity Home Medications: Medications to take at Discharge Carbamazepine 400 mg PO QHS 12/27/14 Sumatriptan Succinate [Imitrex] 100 mg PO BID PRN PRN 01/31/15 Citalopram [Celexa] 40 mg PO QHS 07/29/16 Rifaximin [Xifaxan] 550 mg PO BID 05/04/17 Temazepam [Restoril] 15 mg PO QHS PRN PRN #30 capsule 06/25/17 Clonazepam [Klonopin] 1 mg PO BID PRN PRN 08/19/17 Linacolotide [Linzess] 290 mcg PO QHS 08/29/17 Omeprazole [Prilosec] 20 mg PO QHS 08/29/17 Cholecalciferol (Vitamin D3) [Vitamin D3] 5,000 unit PO DAILY 11/04/17 Zinc 50 mg PO QHS 11/04/17 Lactulose [Chronulac] 30 gm PO TID #5 bottle 11/05/17 Albuterol Inhaler [Ventolin Hfa] 1 - 2 puff INHALATION Q4H PRN PRN 02/08/18 Benzonatate [Tessalon Perle] 200 mg PO TID PRN PRN #20 capsule 02/08/18 Mometasone/Formoterol [Dulera 200 Mcg/5 Mcg Inhaler] 2 puff IN QHS 02/08/18 Oxycodone HCl/Acetaminophen [Percocet 5-325] 1 tab PO Q6H PRN PRN 3 Days #12 tab 02/23/18 Primary Care Physician: Anna Meza NP-C [Primary Care Provider] - Please follow up with your Primary Care Physician in: 1-2 weeks Please Follow Up With: Hepatology - Transplant team When: As directed Disposition: Home Minutes spent on discharge:: 40 Patient Condition:: Stable Medical Necessity - Tobacco Use Smoking Status: Never smoker Tobacco Use: Non-smoker Meaningful Use Info Meaningful Use Diagnoses (Choose all that apply): None applicable
== END 2018-03-10 16:38 | disposition home or self-care (01) ==
LOC: ED 10:17 → MS2 12:07
PROVIDERS: Admitting Provider Internal Medicine; Emergency Provider Emergency Medicine; Family Provider Nurse Practitioner Primary Care; PCP Nurse Practitioner Primary Care; Visit Provider Internal Medicine
DX: K75.81 Nonalcoholic steatohepatitis (NASH) (principal); K72.90 Hepatic failure, unspecified without coma; I10 Essential (primary) hypertension; J45.909 Unspecified asthma, uncomplicated; Z23 Encounter for immunization; Z79.899 Other long term (current) drug therapy; G43.909 Migraine, unspecified, not intractable, without status migrainosus; R56.9 Unspecified convulsions; I85.00 Esophageal varices without bleeding; K44.9 Diaphragmatic hernia without obstruction or gangrene; F41.9 Anxiety disorder, unspecified; F32.9 Major depressive disorder, single episode, unspecified
CPT/HCPCS: 36415; 76700; 80048; 80076; 80156; 82105; 82140; 83690; 85025; 85610; 96374; 96375; 97802; 99218; 99282; J7030; 90686; A4216; G0378; J2405

== ENCOUNTER 2018-03-24 17:58 | Emergency (ER) | payer MEDICAID, SELFPAY ==
[2018-03-24 17:58] VITALS: BP 141/81; PULSE 80; RESP 16; TEMP 36.6; O2SAT 98; BMI 28.3
--- NOTE | 2018-03-24 18:29 | CT_ITS ---
STUDY: CT ABDOMEN AND PELVIS WITHOUT CONTRAST REASON FOR EXAM: Female, 52 years old. Abdominal pain, bloody stools RADIATION DOSAGE (If Supplied By Facility): CTDIvol = ( 10.21 ) mGy, DLP = ( 515.32 ) mGycm TECHNIQUE: Transaxial images were obtained from the dome of the diaphragm to the symphysis pubis without oral contrast, and without intravenous contrast. Sagittal and coronal images were reconstructed. Individualized dose optimization techniques were used for this CT. COMPARISON: Previous recent study of 02/23/2018 FINDINGS: The visualized lung bases are unremarkable. The visualized portions of the heart are within normal limits. Normal liver. There are surgical clips in the gallbladder fossa consistent with a prior cholecystectomy. There is moderate splenomegaly. There are probable varices of the splenic hilus. Normal pancreas. Normal bilateral adrenal glands. Normal right kidney. Normal left kidney. There is again noted a retroaortic left renal vein. There is a small hiatal hernia. Normal small intestine. There is sigmoid diverticulosis with no evidence of associated diverticulitis. The appendix is visualized and appears normal. There are calcified plaques of the abdominal aorta. Normal inferior vena cava. There are scattered shotty retroperitoneal nodes. There is mild diffuse bladder wall thickening, which may merely be due to the incompletely filled state of such. There is absence of the uterus consistent with a prior hysterectomy. There is a small umbilical hernia containing fat. There is old mild compression deformity of the superior endplates of L1 and L2. CT/Abdomen/Pelvis without Cont IMPRESSION: 1. Status post cholecystectomy and hysterectomy. 2. Moderate splenomegaly. There are probable varices in the splenic hilus. 3. Sigmoid diverticulosis with no evidence of associated diverticulitis. 4. There is mild diffuse bladder wall thickening, which may merely be due to the incompletely filled state as such. 5. Small fat-containing umbilical hernia. 6. Findings are overall similar to the previous study. Electronically Signed: Cb Martinez MD at 19:44 EDT , Service support ,
[2018-03-24] MEDS: Ondansetron 4 MG/2 ML Vial IV (18:56)
[2018-03-24] MEDS: Morphine 4 MG/ML Syringe IV ×2 (18:56→20:08)
[2018-03-24] MEDS: 0.9% Normal Saline 1,000 ML 1000 ML IV (18:56)
[2018-03-24 19:07] LABS: Absolute Lymphocyte Count 1.48 X10^3/ul (0.83-4.51); Absolute Neutrophil Count 3.1 X10^3/uL (2.0-7.7); Basophil# 0.03 X10^3/uL; Basophil% 0.6 % (0-1); Eosinophil# 0.06 X10^3/uL; Eosinophils% 1.2 % (0-5); Hematocrit 39.1 % (37-47); Hemoglobin 13.6 g/dl (12.0-15.0); Lymphocyte # 1.48 X10^3/ul (4.0); Lymphocyte % 29.2 % (19-41); Mean Corp Hgb Conc 34.8 g/gl (32-36); Mean Corpuscular Hgb 30.8 pg (27.0-32.0); Mean Corpuscular Volume 88.5 fL (81-99); Mean Platelet Vol. 9.7 fl (6.2-12.0); Monocyte# 0.43 X10^3/uL; Monocyte% 8.5 % (0-10); Neutrophil # 3.06 X10^3/uL (2.7-7.7); Neutrophil % 60.5 % (47-70); Platelet Count 51 K/mm3 (150-450); RBC Distribution Width CV 12.8 % (11.6-14.6); RBC Distribution Width SD 41.2 fl (35.1-43.9); Red Blood Count 4.42 M/mm3 (4.2-5.4); White Blood Count 5.1 K/mm3 (4.4-11.0)
[2018-03-24 19:08] LABS: POSITIVE COUNT NO; POSITIVE DIFFERENTIAL NO; POSITIVE MORPHOLOGY NO
[2018-03-24 19:14] LABS: Color, Urine Yellow (Yellow); Glucose, Dipstick Normal (Normal); Ketone-Dipstick Negative (Negative); Leukocyte Esterase-Dipstick 25 /ul (Negative); Mucous, Urine 0 SEEN /hpf (<or=2+); Nitrite-Dipstick Negative (Negative); Occult Blood-Urine Negative /ul (Negative); Protein-Dipstick Negative (Negative); Red Blood Cells-Urine 0 SEEN /hpf (0-5); Urine Bilirubin Dipstick Negative (Negative); Urine Clarity Clear (Clear); Urine Urobilinogen 1 mg/dl (Normal)
[2018-03-24 19:17] LABS: ALB/GLOB Ratio 0.8 RATIO (0.9-2.4); AST(SGOT) 48 U/L (15-37); Alanine Aminotransfer ALT/SGPT 26 U/L (13-56); Albumin, Serum 3.3 g/dL (3.2-5.0); Alkaline Phosphatase 136 U/L (45-117); Anion Gap 8 (5-15); BUN 3 mg/dL (7-18); BUN/Creat Ratio 5.6 RATIO (10-20); Calcium,Total 8.5 mg/dL (8.5-10.1); Chloride 108 mmol/L (98-107); Creatinine, Serum 0.53 mg/dL (0.55-1.02); EST Glomerular Filtration Rate 128 mL/min (>60); Est Glom Filt Rate - Afr Amer 155 mL/min (>60); Estimated Creatinine Clearance 114.27 ml/min; Globulin 3.9 g/dL (2.2-4.2); Glucose 105 mg/dL (74-106); Lipase 112 U/L (73-393); Potassium 3.4 mmol/L (3.5-5.1); Protein, Total 7.2 g/dL (6.4-8.2); Sodium Level 142 mmol/L (136-145)
[2018-03-24 19:20] LABS: Bacteria RARE /hpf (None Seen); Squamous Epithelial Cells - UA 0-5 SEEN /hpf (5-10); White Blood Cells 0-5 SEEN /hpf (0-5)
[2018-03-24 19:25] LABS: Lactic Acid 1.5 mmol/L (0.4-2.0)
[2018-03-24 20:11] VITALS: BP 140/81; PULSE 87; RESP 18; O2SAT 98
--- NOTE | 2018-03-24 20:35 | ED.VISSUMM ---
- ER Visit Summary Date of Service: 03/24/18 Chief Complaint: [Abdominal pain] History of Present Illness: The patient is a 52 F [presents the emergency department complaint of abdominal pain that she has had for about 2 months. Patient states the pain is been relatively continuous and stabbing describes it is lower abdomen behind her bellybutton. Patient had nausea but no vomiting. Denies any diarrhea. Patient states she is currently being hospitalized frequently for elevated ammonia levels patient is currently on a liver transplant list. Patient has a history of Jewell syndrome. Patient denies any fevers at home. She denies urinary symptoms. Patient is scheduled to have some banding of her esophageal varices in [place] next week.] Physical Examination: [HEENT-PERRLA, EOMI. Cranial nerves II through XII grossly intact. TMs clear. Mucous membranes moist. No adenopathy. Cardiovascular-regular rate and rhythm without murmur or ectopy Lungs-clear to auscultation, chest wall stable without crepitus or subcu emphysema Abdomen-normoactive bowel sounds, soft. Patient does have some diffuse tenderness periumbilically. There is no rebound, rigidity, or perineal signs. No masses palpated. Extremities-intact ?4, normal range of motion, normal pulses, atraumatic] Test Results: [CBC with differential obtained showed a white count of 5.1, hemoglobin 13.6, hematocrit 39, platelets 51. Chemistries unremarkable. LFTs showed an alk phos 136, ALT of 26, AST of 48. Urinalysis was normal. Ammonia was 45. CT scan without contrast showed splenomegaly as well as varices at the splenic hilum and small fat-containing of vocal hernia. CT scan is relatively unchanged from prior study 1 month ago.] Emergency Department Course and Treatment: [Patient was medicated with morphine and Zofran and she had pain relief with that.] Treatment Plan: [Patient will be given a prescription for OxyIR.] Disposition: Discharged home in stable condition [] Impression: [Abdominal pain-etiology uncertain] This note was generated with Alibabaation software. It may contain incorrect words, spelling, and punctuation that were not noted in review of the chart prior to signing ED Disposition - Plan for ED Patient: Chief Complaint: Abd Pain Referrals: Anna Meza NP-C [Primary Care Provider] -
--- NOTE | 2018-03-24 20:39 | DCINST.ED_ITS ---
ED Disposition - Plan for ED Patient: Chief Complaint: Abd Pain Instructions: ED Abdominal Pain Unkn Cause Prescriptions: Oxycodone [Oxyir] 5 mg PO Q4H PRN PRN 5 Days #20 tab PRN Reason: Pain Referrals: Anna Meza CLOTH [employer] BACK TENDER-C [Primary Care Provider] - 3-5 Days
[2018-03-24 20:43] VITALS: BP 125/75; PULSE 82; RESP 16; O2SAT 96
== END 2018-03-24 20:52 | disposition home or self-care (01) ==
LOC: ED 18:47
PROVIDERS: Emergency Provider Emergency Medicine; Family Provider Nurse Practitioner Primary Care; PCP Nurse Practitioner Primary Care
DX: R10.30 Lower abdominal pain, unspecified (principal); R11.0 Nausea; K75.81 Nonalcoholic steatohepatitis (NASH); K42.9 Umbilical hernia without obstruction or gangrene; I85.00 Esophageal varices without bleeding; G40.909 Epilepsy, unspecified, not intractable, without status epilepticus; Z90.49 Acquired absence of other specified parts of digestive tract; Z79.899 Other long term (current) drug therapy
CPT/HCPCS: 74176; 80053; 81001; 82140; 83605; 83690; 85025; 96361; 96374; 96375; 99285; J7030; A4216; J2405

== ENCOUNTER 2018-04-01 17:46 | Observation (INO) | payer MEDICAID, SELFPAY ==
[2018-04-01 17:47] VITALS: BP 127/74; PULSE 94; RESP 16; TEMP 36.9; O2SAT 96; BMI 28.3
--- NOTE | 2018-04-01 18:06 | ED.VISSUMM ---
- ER Visit Summary Date of Service: 04/01/18 Chief Complaint: Needs ammonia level checked History of Present Illness: The patient is a 52 F presenting with concern of elevated ammonia level. She states that over the past week she felt fatigued and has had confusion. She states she has felt this in the past when her ammonia levels have been high. She is taking her lactulose. She is awaiting liver transplant at [facility]. She has a history of MARMOLEJO. She denies fever. She has nausea with no vomiting. Physical Examination: Vitals are stable. Patient is afebrile. Alert no acute distress. HEENT exam is unremarkable. Neck is supple. Lungs are clear and equal bilaterally. Heart is regular rate and rhythm. Abdomen is soft mild diffuse tenderness with no rebound or guarding Extremities are unremarkable. Skin is warm and dry. No focal neurologic deficit. Remainder of exam is unremarkable. Emergency Department Course and Treatment: Patient is given Dilaudid, Zofran IV. CBC shows white count of 4.1, platelets 51. Chemistries unremarkable. Direct bili 0.41. Alk phos is 152. INR is 1.5. Ammonia 83. She was given lactulose. Discussed with the hospitalist for admission. Disposition: Admission Impression: Hepatic encephalopathy, nonalcoholic liver disease This note was generated with tinyclues dictation software. It may contain incorrect words, spelling, and punctuation that were not noted in review of the chart prior to signing ED Disposition - Plan for ED Patient: Chief Complaint: Confusion Referrals: Anna Meza, YARIEL-C [Primary Care Provider] -
[2018-04-01 18:18] LABS: Absolute Lymphocyte Count 1.02 X10^3/ul (0.83-4.51); Absolute Neutrophil Count 2.6 X10^3/uL (2.0-7.7); Basophil# 0.02 X10^3/uL; Basophil% 0.5 % (0-1); Eosinophil# 0.08 X10^3/uL; Hematocrit 40.2 % (37-47); Hemoglobin 13.8 g/dl (12.0-15.0); Lymphocyte # 1.02 X10^3/ul (4.0); Lymphocyte % 25.1 % (19-41); Mean Corp Hgb Conc 34.3 g/gl (32-36); Mean Corpuscular Hgb 30.9 pg (27.0-32.0); Mean Corpuscular Volume 89.9 fL (81-99); Mean Platelet Vol. 9.5 fl (6.2-12.0); Monocyte# 0.33 X10^3/uL; Monocyte% 8.1 % (0-10); Neutrophil % 64.1 % (47-70); Platelet Count 51 K/mm3 (150-450); RBC Distribution Width SD 42.8 fl (35.1-43.9); Red Blood Count 4.47 M/mm3 (4.2-5.4); White Blood Count 4.1 K/mm3 (4.4-11.0)
[2018-04-01] MEDS: HYDROmorphone 1 MG/ML Syringe IV (18:19)
[2018-04-01] MEDS: Ondansetron 4 MG/2 ML Vial IV (18:19)
[2018-04-01 18:22] LABS: POSITIVE COUNT NO; POSITIVE DIFFERENTIAL NO; POSITIVE MORPHOLOGY NO
[2018-04-01 18:27] LABS: International Normalized Ratio 1.5; Prothrombin Time (Protime)PT. 18.3 SECONDS (11.7-14.9)
[2018-04-01 18:41] LABS: AST(SGOT) 34 U/L (15-37); Alanine Aminotransfer ALT/SGPT 19 U/L (13-56); Albumin, Serum 3.1 g/dL (3.2-5.0); Alkaline Phosphatase 152 U/L (45-117); Anion Gap 6 (5-15); BUN 4 mg/dL (7-18); Bilirubin, Direct 0.41 mg/dL (0.00-0.30); Chloride 107 mmol/L (98-107); Creatinine, Serum 0.57 mg/dL (0.55-1.02); EST Glomerular Filtration Rate 119 mL/min (>60); Est Glom Filt Rate - Afr Amer 144 mL/min (>60); Estimated Creatinine Clearance 106.25 ml/min; Globulin 3.8 g/dL (2.2-4.2); Glucose 104 mg/dL (74-106); Potassium 3.7 mmol/L (3.5-5.1); Protein, Total 6.9 g/dL (6.4-8.2); Sodium Level 141 mmol/L (136-145)
[2018-04-01 19:12] VITALS: BMI 28.3
--- NOTE | 2018-04-01 19:26 | HP.PCM_ITS ---
Problem List (1) Acute encephalopathy Status: Acute (2) JEWELL (nonalcoholic steatohepatitis) Status: Chronic (3) Hepatic encephalopathy Status: Acute History of Present Illness Date of Admission: 04/01/18 Chief Complaint: lethargy and confusion The patient is a 52 year old F with a significant history of Jewell reportedly on transplant list; epilepsy; asthma who presents with 2 days of progressive lethargy and confusion. Per family, patient has been sleeping all day. In the last 2 days she has been awake only for 4-5 hours primarily to use the restroom. Patient reported that she is unable to read; she is also unable to remember names. Reportedly patient was taking oxycodone IR for pain from umbilical hernia. Patient reported that the last time that she took the oxycodone IR was a day before her admission. The patient reports of abdominal pain 8 out of 10 in severity. She is unable to characterize the quality of her pain. She reports nausea without vomiting. In regards to her Jewell she follows up with [facility]. She reports having esophageal varices and enlarged spleen. Past Medical History Past Medical History (Chronic Problems): Chronic Problems JEWELL (nonalcoholic steatohepatitis) (Chronic) Migraine (Chronic) Asthma (Chronic) Hiatal hernia (Chronic) Esophageal varices (Chronic) numerous banding Seizures (Chronic) last known 11/2016 Allergies diphenhydramine HCl [From Benadryl] Adverse Reaction (Verified 04/01/18 17:47) climb the rose CLIMB [place] RO[place] lorazepam [From Ativan] Adverse Reaction (Verified 04/01/18 17:47) Climb the rose SHE FEELS LIKE SHE WANTS TO CLIMB THE ROSE prednisone Adverse Reaction (Verified 04/01/18 17:47) Other prochlorperazine edisylate [From Compazine] Adverse Reaction (Verified 04/01/18 17:47) climb [place] rose [place]IM[place] prochlorperazine maleate [From Compazine] Adverse Reaction (Verified 04/01/18 17:47) climb out of my body CLIMB OUT OF MY BODY promethazine HCl [From Phenergan] Adverse Reaction (Verified 04/01/18 17:47) climb the rose CLIM[place] topiramate [From Topamax] Adverse Reaction (Verified 04/01/18 17:47) Other tramadol Adverse Reaction (Verified 04/01/18 17:47) climb the rose feels like going to climb rose Home Medications: Ambulatory Orders Medication Instructions Recorded Carbamazepine 400 mg PO QHS 12/27/14 Sumatriptan Succinate [Imitrex] 100 mg PO BID PRN PRN 01/31/15 Citalopram [Celexa] 40 mg PO QHS 07/29/16 Rifaximin [Xifaxan] 550 mg PO BID 05/04/17 Temazepam [Restoril] 15 mg PO QHS PRN PRN #30 capsule 06/25/17 Clonazepam [Klonopin] 1 mg PO BID PRN PRN 08/19/17 Linacolotide [Linzess] 290 mcg PO QHS 08/29/17 Omeprazole [Prilosec] 20 mg PO QHS 08/29/17 Cholecalciferol (Vitamin D3) 5,000 unit PO DAILY 11/04/17 [Vitamin D3] Zinc 50 mg PO QHS 11/04/17 Lactulose [Chronulac] 30 gm PO TID #5 bottle 11/05/17 Albuterol Inhaler [Ventolin Hfa] 1 - 2 puff INHALATION Q4H PRN PRN 02/08/18 Mometasone/Formoterol [Dulera 200 2 puff IN QHS 02/08/18 Mcg/5 Mcg Inhaler] Surgical History: cholecystectomy, hysterectomy, total knee arthroplasty, - - cholecystectomy, partial hysterectomy, right shoulder replacement secondary to fall secondary to seizure, bilateral knee arthroscopic Psychiatric History: Anxiety, Depression RESOURCE ECONOMIST History: No pertinent RESOURCE ECONOMIST history Lives: Spouse/ Significant Other Smoking Status: Never smoker Tobacco Use: Non-smoker - *Family History Maternal History Items: COPD Paternal History Items: Heart Disease - CHF, - - Liver disease, alcoholism Sibling History Items: Heart Disease, Stroke, - - cirrhosis Review of Systems Constitutional: Reports: Fatigue. Denies: Chills, Fever, Weight Change Eyes: Denies: Blurred vision, Pain HEENT: Denies: Head Aches, Sinus Congestion, Sinus Drainage Cardiovascular: Denies: Chest Pain, Palpitations Respiratory: Denies: Cough, Shortness of breath at rest, Sputum production Gastrointestinal: Reports: Abdominal Pain, Nausea. Denies: Vomiting Genitourinary: Denies: Dysuria Musculoskeletal: Denies: Joint Pain, Joint Tenderness Skin: Denies: Rash, Wounds Neurological: Reports: Confusion. Denies: Focal weakness, Numbness, Tingling Psychiatric: Denies: Anxiety, Depression, Homicidal Ideations, Suicidal Ideations Hematologic/ Lymphatic: Denies: Easy Bruising, Easy Bleeding VTE Information - Inpt Only VTE Present on Admission: No VTE Mechan Device Prophylaxis: None VTE Pharm Prophylaxis ordered?: Yes Patient Problems: Active and Suspected Problems Acute encephalopathy (Acute) - Physical Exam General: Alert, Cooperative, - - Patient is oriented to self, place and month. She had difficulty figuring out the year. HEENT: Atraumatic, EOMI, Normocephalic, - - Pinpoint pupils; does not react to light. Neck: Supple, No JVD, Negative Carotid Bruits Lungs: Clear to auscultation, Normal air movement Cardiovascular: Regular rate, No murmurs Abdomen: Bowel Sounds Present, Soft, Hepatomegaly, Splenomegaly, Tender - Mild, - Extremities: No edema, Capillary Refill Less than 3 Seconds Skin: No rashes, No breakdown, - - No spider angiomata or caput medusae. Musculoskeletal: No Tenderness to Palpation of Joints or Extremities Lymphatic: No Cervical, Supraclavicular, or Inguinal Adenopathy Neurological: Cranial nerves II-XII grossly intact, - - No asterixis Psych/Mental Status: - - Slow speech and psychomotor retardation. Vital Signs Temp Pulse Resp BP Pulse Ox 98.4 F 94 16 127/74 H 96 04/01/18 17:47 04/01/18 17:47 04/01/18 17:47 04/01/18 17:47 04/01/18 17:47 Oxygen Delivery Method Room Air Weight: 77.111 kg Body Mass Index (BMI) 28.3 Laboratory Tests Past 24 Hrs 04/01/18 04/01/18 04/01/18 18:08 18:08 18:08 WBC 4.1 L RBC 4.47 Hgb 13.8 Hct 40.2 MCV 89.9 MCH 30.9 MCHC 34.3 RDW 13.0 RDW Differential 42.8 Plt Count 51 L MPV 9.5 Immature Gran % (Auto) 0.200 Neut % (Auto) 64.1 Lymph % (Auto) 25.1 [place] % (Auto) 8.1 Eos % (Auto) 2.0 Baso % (Auto) 0.5 Absolute Neuts (auto) 2.6 Absolute Lymphs (auto) 1.02 Total Counted Not Reportable PT 18.3 H INR 1.5 Sodium 141 Potassium 3.7 Chloride 107 Carbon Dioxide 28.0 Anion Gap 6 BUN 4 L Creatinine 0.57 Estim Creat Clear Calc 106.25 Est GFR (MDRD) Af Amer 144 Est GFR (MDRD) Non-Af 119 BUN/Creatinine Ratio 7.0 L Glucose 104 Calcium 8.0 L Total Bilirubin 1.00 Direct Bilirubin 0.41 H AST 34 ALT 19 Alkaline Phosphatase 152 H Ammonia Total Protein 6.9 Albumin 3.1 L Globulin 3.8 04/01/18 18:08 WBC RBC Hgb Hct MCV MCH MCHC RDW RDW Differential Plt Count MPV Immature Gran % (Auto) Neut % (Auto) Lymph % (Auto) [place] % (Auto) Eos % (Auto) Baso % (Auto) Absolute Neuts (auto) Absolute Lymphs (auto) Total Counted PT INR Sodium Potassium Chloride Carbon Dioxide Anion Gap BUN Creatinine Estim Creat Clear Calc Est GFR (MDRD) Af Amer Est GFR (MDRD) Non-Af BUN/Creatinine Ratio Glucose Calcium Total Bilirubin Direct Bilirubin AST ALT Alkaline Phosphatase Ammonia 83.0 H Total Protein Albumin Globulin Assessment/Plan All Active Problems Acute encephalopathy (Acute) Hepatic encephalopathy (Acute) The patient is a 52 year old F with a significant history of Jewell reportedly on transplant list; epilepsy; asthma who presents with 2 days of progressive lethargy and confusion consistent with acute encephalopathy. Acute encephalopathy Likely diagnosis is hepatic encephalopathy. Less likely narcotic narcotic overdose secondary to poor clearance due to liver disease. Review of old records shows a CT scan of abdomen and pelvis on 02/23/2018 showed moderate splenomegaly. Probable varices in the splenic hilus. Review of old records show that patient was admitted at the hospital on 03/09/2018 and discharged on 03/10/2018. Per discharge summary at that time patient had not been taking her lactulose for several days and had not had a bowel movement for several days and her ammonia level was elevated at that admission. On this admission ,04/01/18 ,Patient received lactulose 20 gm at emergency department. Will initiate 30 g (45 mLs) lactulose p.o. every 1 hour x3 to induce rapid defecation this first day of admission (04/01/18) We will continue her home lactulose 30 mL 3 times daily beginning 04/02/2018 (next day of admission). Reportedly she takes 2 tablespoons of lactulose 3 times a day at home. Patient takes rifaximin 550 mg every 12 hours; will continue. Check ammonia level in a.m. Careful use of tylenol Patient reported that she has scanty bowel movement. In her med profile is Linzess. Would hold Linzess at this time to promote increased defecation. No narcotics at this time. We will hold her home temazepam and Klonopin. Patient reported that she be considered for liver transplant when her meld score is 15. MELD SCORE ( original) = 11 points; 6% estimated 3-month mortality. MELD-Na Score 11 points; less than 2% estimated 90-day mortality. Meld score (new)= 11 points. 6% estimated 3 months mobility. Child-Saab Score= 7-points Child Class B. Indication for transplant evaluation. Abdominal surgery perioperative mortality: 30%. Abdominal pain and nausea Likely secondary to umbilical hernia. Received Dilaudid at emergency department. Will avoid narcotics at this time due to acute encephalopathy Bentyl ordered. Patient to follow up with her surgeon when acute encephalopathy resolves. Zofran as needed. Asthma Stable patient is not in any respiratory distress at this time. Albuterol continued. Mometasone continued. Epilepsy Carbamazepine continued. Seizure precautions. GERD Omeprazole continued. Migraine Sumatriptan as needed continued. Depression Citalopram continued. DVT prophylaxis Subcutaneous Lovenox. Code Visit OBSV E&M: 28547 Initial observation care L3
[2018-04-01] MEDS: Lactulose 20 GM/30 ML UDC PO (19:45)
[2018-04-01 19:48] VITALS: BP 119/75; PULSE 96; RESP 16
[2018-04-01 20:04] VITALS: BMI 29.0
[2018-04-01 20:06] VITALS: BP 111/64; PULSE 87; RESP 18; TEMP 36.8; O2SAT 93
[2018-04-01] MEDS: Pantoprazole Sodium 20 MG Tablet PO (21:39)
[2018-04-01] MEDS: Lactulose 20 GM/30 ML UDC 30 GM PO ×3 (21:39→23:28)
[2018-04-01] MEDS: Citalopram 40 MG TABLET PO (21:39)
[2018-04-01] MEDS: carBAMazepine 200 MG Tablet 400 MG PO (21:39)
[2018-04-01] MEDS: rifAXIMin 550 MG Tablet PO (21:39)
[2018-04-02] MEDS: 0.9% NaCl Peripheral Flush Adult/Peds IV ×2 (00:15→04:11)
[2018-04-02] MEDS: Ondansetron 4 MG/2 ML Vial IV (00:15)
[2018-04-02 01:53] VITALS: BP 110/66; PULSE 85; RESP 18; TEMP 36.6; O2SAT 93
[2018-04-02] MEDS: Rizatriptan Benzoate 10 MG Tablet PO ×2 (02:17→22:40)
[2018-04-02] MEDS: Metoclopramide 10 MG/2 ML Vial IV (04:10)
[2018-04-02] MEDS: Lactulose 20 GM/30 ML UDC 30 GM PO ×3 (05:23→21:16)
[2018-04-02 05:56] LABS: BUN 6 mg/dL (7-18); BUN/Creat Ratio 9.1 RATIO (10-20); Chloride 111 mmol/L (98-107); Creatinine, Serum 0.66 mg/dL (0.55-1.02); EST Glomerular Filtration Rate 100 mL/min (>60); Est Glom Filt Rate - Afr Amer 121 mL/min (>60); Estimated Creatinine Clearance 91.76 ml/min; Glucose 174 mg/dL (74-106); Potassium 3.4 mmol/L (3.5-5.1); Sodium Level 143 mmol/L (136-145)
[2018-04-02 05:57] LABS: Anion Gap 9 (5-15)
[2018-04-02 06:33] LABS: Absolute Lymphocyte Count 0.85 X10^3/ul (0.83-4.51); Absolute Neutrophil Count 2.9 X10^3/uL (2.0-7.7); Basophil# 0.02 X10^3/uL; Basophil% 0.5 % (0-1); Eosinophil# 0.03 X10^3/uL; Eosinophils% 0.7 % (0-5); Hematocrit 38.1 % (37-47); Hemoglobin 12.9 g/dl (12.0-15.0); Lymphocyte # 0.85 X10^3/ul (4.0); Lymphocyte % 20.8 % (19-41); Mean Corp Hgb Conc 33.9 g/gl (32-36); Mean Corpuscular Hgb 30.6 pg (27.0-32.0); Mean Corpuscular Volume 90.5 fL (81-99); Mean Platelet Vol. 10.5 fl (6.2-12.0); Monocyte# 0.28 X10^3/uL; Monocyte% 6.9 % (0-10); Neutrophil # 2.89 X10^3/uL (2.7-7.7); Neutrophil % 70.9 % (47-70); Platelet Count 58 K/mm3 (150-450); RBC Distribution Width CV 13.1 % (11.6-14.6); RBC Distribution Width SD 42.7 fl (35.1-43.9); Red Blood Count 4.21 M/mm3 (4.2-5.4); White Blood Count 4.1 K/mm3 (4.4-11.0)
[2018-04-02 06:37] LABS: POSITIVE COUNT NO; POSITIVE DIFFERENTIAL NO; POSITIVE MORPHOLOGY NO
[2018-04-02] MEDS: Dicyclomine 10 MG Capsule PO ×3 (06:50→15:11)
[2018-04-02 07:26] VITALS: PULSE 89; RESP 18; O2SAT 96
[2018-04-02] MEDS: Albuterol 2.5 MG/3 ML VIAL.NEB. INHALATION ×2 (07:26→17:00)
[2018-04-02] MEDS: Budesonide Respules 0.5 MG/2 ML AMPUL.NEB. INHALATION ×2 (07:26→17:00)
[2018-04-02 08:35] VITALS: BP 122/82; PULSE 93; RESP 18; TEMP 36.5; O2SAT 95
--- NOTE | 2018-04-02 08:36 | CASEMGMT ---
Copies of LW/POA in echart. SW printed and placed on chart to be scanned into summary tab at discharge. ADRIEL Escobar, DRESSER TENDER
[2018-04-02] MEDS: rifAXIMin 550 MG Tablet PO ×2 (09:35→21:19)
[2018-04-02 09:59] LABS: AST(SGOT) 38 U/L (15-37); Alanine Aminotransfer ALT/SGPT 19 U/L (13-56); Albumin, Serum 2.9 g/dL (3.2-5.0); Alkaline Phosphatase 135 U/L (45-117); Globulin 3.4 g/dL (2.2-4.2); Protein, Total 6.3 g/dL (6.4-8.2)
--- NOTE | 2018-04-02 10:55 | PN_ITS ---
<Rosalino Tristan - Last Filed: 04/02/18 10:51> Patient Problems: Active and Suspected Problems Acute encephalopathy (Acute) Subjective: Pt remains very confused this AM. She states it is 1986. She has had loose stools this AM. She is not sure how many. She reports some nausea and vomiting, and mild diffuse abdominal pain. She is not sure how much lactulose she is taking daily. She is not sure when she last saw or when she is next going to see her transplant team in [place]. - Physical Exam General: Alert, Cooperative, Confused HEENT: Atraumatic, PERRLA, EOMI, Normocephalic Neck: Supple, No JVD, Negative Carotid Bruits Lungs: Clear to auscultation, Normal air movement Cardiovascular: Regular rate, No murmurs Abdomen: Bowel Sounds Present, Soft, Non Tender Extremities: No edema, Capillary Refill Less than 3 Seconds Skin: No rashes, No breakdown Musculoskeletal: No Tenderness to Palpation of Joints or Extremities Neurological: Cranial nerves II-XII grossly intact Psych/Mental Status: Normal Affect, Appropriate, - - A/Ox2 Vital Signs Temp Pulse Resp BP Pulse Ox 97.7 F L 93 18 122/82 H 95 04/02/18 08:35 04/02/18 08:35 04/02/18 08:35 04/02/18 08:35 04/02/18 08:35 Oxygen Delivery Method Room Air Weight: 174 lb 2.643 oz Body Mass Index (BMI) 29.0 Intake and Output for Last 24 Hours 03/31/18 04/01/18 04/02/18 23:59 23:59 23:59 Intake Total 600 / 600 Balance 600 / 600 Laboratory Tests Past 24 Hrs 04/01/18 04/01/18 04/01/18 18:08 18:08 18:08 WBC 4.1 L RBC 4.47 Hgb 13.8 Hct 40.2 MCV 89.9 MCH 30.9 MCHC 34.3 RDW 13.0 RDW Differential 42.8 Plt Count 51 L MPV 9.5 Immature Gran % (Auto) 0.200 Neut % (Auto) 64.1 Lymph % (Auto) 25.1 [place] % (Auto) 8.1 Eos % (Auto) 2.0 Baso % (Auto) 0.5 Absolute Neuts (auto) 2.6 Absolute Lymphs (auto) 1.02 Total Counted Not Reportable PT 18.3 H INR 1.5 Sodium 141 Potassium 3.7 Chloride 107 Carbon Dioxide 28.0 Anion Gap 6 BUN 4 L Creatinine 0.57 Estim Creat Clear Calc 106.25 Est GFR (MDRD) Af Amer 144 Est GFR (MDRD) Non-Af 119 BUN/Creatinine Ratio 7.0 L Glucose 104 Calcium 8.0 L Total Bilirubin 1.00 Direct Bilirubin 0.41 H AST 34 ALT 19 Alkaline Phosphatase 152 H Ammonia Total Protein 6.9 Albumin 3.1 L Globulin 3.8 04/01/18 04/02/18 04/02/18 18:08 05:14 05:14 WBC 4.1 L RBC 4.21 Hgb 12.9 Hct 38.1 MCV 90.5 MCH 30.6 MCHC 33.9 RDW 13.1 RDW Differential 42.7 Plt Count 58 L MPV 10.5 Immature Gran % (Auto) 0.200 Neut % (Auto) 70.9 H Lymph % (Auto) 20.8 [place] % (Auto) 6.9 Eos % (Auto) 0.7 Baso % (Auto) 0.5 Absolute Neuts (auto) 2.9 Absolute Lymphs (auto) 0.85 Total Counted Not Reportable PT INR Sodium 143 Potassium 3.4 L Chloride 111 H Carbon Dioxide 23.0 Anion Gap 9 BUN 6 L Creatinine 0.66 Estim Creat Clear Calc 91.76 Est GFR (MDRD) Af Amer 121 Est GFR (MDRD) Non-Af 100 BUN/Creatinine Ratio 9.1 L Glucose 174 H Calcium 8.0 L Total Bilirubin Direct Bilirubin AST ALT Alkaline Phosphatase Ammonia 83.0 H Total Protein Albumin Globulin 04/02/18 04/02/18 05:14 05:14 WBC RBC Hgb Hct MCV MCH MCHC RDW RDW Differential Plt Count MPV Immature Gran % (Auto) Neut % (Auto) Lymph % (Auto) [place] % (Auto) Eos % (Auto) Baso % (Auto) Absolute Neuts (auto) Absolute Lymphs (auto) Total Counted PT INR Sodium Potassium Chloride Carbon Dioxide Anion Gap BUN Creatinine Estim Creat Clear Calc Est GFR (MDRD) Af Amer Est GFR (MDRD) Non-Af BUN/Creatinine Ratio Glucose Calcium Total Bilirubin 1.50 H Direct Bilirubin 0.60 H AST 38 H ALT 19 Alkaline Phosphatase 135 H Ammonia 97.0 H Total Protein 6.3 L Albumin 2.9 L Globulin 3.4 Medical Necessity - Tobacco Use Smoking Status: Never smoker Tobacco Use: Non-smoker Assessment/Plan All Active Problems Acute encephalopathy (Acute) Hepatic encephalopathy (Acute) 1. Acute hepatic encephalopathy 2/2 MARMOLEJO - loose BM this AM. Still confused. Will continue to current xifaxin and lactulose, monitor for improvement in mental status. Remains confused. Mild abdominal pain - opiates for this discontinued at admission. Abdomen is soft. Still nauseous. Potassium repleted. Check KUB. 2. Hx epilepsy - tegretol 3. Hx GERD - on PPI, hx hiatal hernia 4. Hx Asthma - no SOB, wheezing, cough 5. Hx Migraines - prn sumatriptan 6. Hx depression - SSRI 7. Hx IBS - linzess (currently held) and bentyl DVT ppx: SCDs - thrombocytopenic. DC planning: remains confused. Monitor overnight. PTOT. This patient was seen by Rosalino Tristan PA-C under the supervision of Doctor Lemuel. <Andria Hdez - Last Filed: 04/02/18 14:55> - Physical Exam Vital Signs Temp Pulse Resp BP Pulse Ox 97.7 F L 93 18 122/82 H 95 04/02/18 08:35 04/02/18 08:35 04/02/18 08:35 04/02/18 08:35 04/02/18 08:35 Oxygen Delivery Method Room Air Weight: 79 kg Body Mass Index (BMI) 29.0 Intake and Output for Last 24 Hours 03/31/18 04/01/18 04/02/18 23:59 23:59 23:59 Intake Total 840 / 840 Balance 840 / 840 Laboratory Tests Past 24 Hrs 04/01/18 04/01/18 04/01/18 18:08 18:08 18:08 WBC 4.1 L RBC 4.47 Hgb 13.8 Hct 40.2 MCV 89.9 MCH 30.9 MCHC 34.3 RDW 13.0 RDW Differential 42.8 Plt Count 51 L MPV 9.5 Immature Gran % (Auto) 0.200 Neut % (Auto) 64.1 Lymph % (Auto) 25.1 [place] % (Auto) 8.1 Eos % (Auto) 2.0 Baso % (Auto) 0.5 Absolute Neuts (auto) 2.6 Absolute Lymphs (auto) 1.02 Total Counted Not Reportable PT 18.3 H INR 1.5 Sodium 141 Potassium 3.7 Chloride 107 Carbon Dioxide 28.0 Anion Gap 6 BUN 4 L Creatinine 0.57 Estim Creat Clear Calc 106.25 Est GFR (MDRD) Af Amer 144 Est GFR (MDRD) Non-Af 119 BUN/Creatinine Ratio 7.0 L Glucose 104 Calcium 8.0 L Total Bilirubin 1.00 Direct Bilirubin 0.41 H AST 34 ALT 19 Alkaline Phosphatase 152 H Ammonia Total Protein 6.9 Albumin 3.1 L Globulin 3.8 04/01/18 04/02/18 04/02/18 18:08 05:14 05:14 WBC 4.1 L RBC 4.21 Hgb 12.9 Hct 38.1 MCV 90.5 MCH 30.6 MCHC 33.9 RDW 13.1 RDW Differential 42.7 Plt Count 58 L MPV 10.5 Immature Gran % (Auto) 0.200 Neut % (Auto) 70.9 H Lymph % (Auto) 20.8 [place] % (Auto) 6.9 Eos % (Auto) 0.7 Baso % (Auto) 0.5 Absolute Neuts (auto) 2.9 Absolute Lymphs (auto) 0.85 Total Counted Not Reportable PT INR Sodium 143 Potassium 3.4 L Chloride 111 H Carbon Dioxide 23.0 Anion Gap 9 BUN 6 L Creatinine 0.66 Estim Creat Clear Calc 91.76 Est GFR (MDRD) Af Amer 121 Est GFR (MDRD) Non-Af 100 BUN/Creatinine Ratio 9.1 L Glucose 174 H Calcium 8.0 L Total Bilirubin Direct Bilirubin AST ALT Alkaline Phosphatase Ammonia 83.0 H Total Protein Albumin Globulin 04/02/18 04/02/18 05:14 05:14 WBC RBC Hgb Hct MCV MCH MCHC RDW RDW Differential Plt Count MPV Immature Gran % (Auto) Neut % (Auto) Lymph % (Auto) [place] % (Auto) Eos % (Auto) Baso % (Auto) Absolute Neuts (auto) Absolute Lymphs (auto) Total Counted PT INR Sodium Potassium Chloride Carbon Dioxide Anion Gap BUN Creatinine Estim Creat Clear Calc Est GFR (MDRD) Af Amer Est GFR (MDRD) Non-Af BUN/Creatinine Ratio Glucose Calcium Total Bilirubin 1.50 H Direct Bilirubin 0.60 H AST 38 H ALT 19 Alkaline Phosphatase 135 H Ammonia 97.0 H Total Protein 6.3 L Albumin 2.9 L Globulin 3.4 Assessment/Plan This patient was seen in conjunction with FERNANDA Deng. I have independently interviewed and examined the patient and reviewed pertinent historical, laboratory, and other data. Please refer to FERNANDA Deng note for his patient's presentation, findings, and recommendations. I have reviewed and his note and concur with his documentation 4-year-old female with past medical history of MARMOLEJO comes in with complaints of fatigue and confusion. She has been admitted and managed as acute metabolic encephalopathy secondary to hepatic encephalopathy. Patient is very lethargic, complains of pain in her abdomen. Denies any dizziness or fatigue. Has had 2 bowel movements. Physical Exam: Gen: Lethargic, not pale, not jaundiced CVS:HS I +II, regular, no murmurs RESP: Diminished at lung bases GI: Full, soft, nontender, no ballotable organs EXT:No edema CHEMICAL DETECTION EXPERT: No flapping tremors, lethargic, otherwise grossly intact ASSESSMENT: 1. Acute metabolic encephalopathy/acute hepatic encephalopathy 2. Abdominal pain, unspecified etiology 3. Hypokalemia 4. Asthma 5. Seizure disorder 6. GERD Plan: Replace potassium, lab in a.m. Continue on lactulose and aim for 1-2 bowel movements; continue to hold lenses No narcotics, will continue with Tylenol as needed as LFTs are normal except for slightly elevated ALP Code Visit Inpatient E&M: 59770 Subs Hosp L2
--- NOTE | 2018-04-02 10:57 | CASEMGMT ---
NOY Ngo had made a referral recently to [facility] for pt, however pt is now here in the hospital. NOY spoke w/Miguel w/[facility], she will follow up w/pt once pt is discharged from the hospital. NOY spoke w/pt and pt's significant other and BIBIANA Bulmaro Terence in room. Pt sleeping, woke briefly and looked at SW, states is okay w/SW speaking w/Bulmaro. As per Bulmaro, pt is always confused, though is more confused at present. Bulmaro is retired from the [employer] and cares for pt, does the cooking, cleaning, helps w/meds, driving. He stays in the bathroom when pt showers to make sure she is okay. Bulmaro reports supportive family also, including his brother and [id number], pt's daughter, and his son. Bulmaro states pt will likely be weaker after this hospitalization. He does anticipate pt returning home. Bulmaro explains that pt is on the transplant list, is currently a MELD score of 14. He states that in [place], someone is eligible for a transplant with a score of 18, and pt may be eligible once she is a 15. He states it could take another 6 months before she gets a new liver. He explains when they come into the ED, they get asked the same questions every time by multiple people, has been told that pt is noncompliant with the lactulose. Bulmaro expressed frustration with this. He states he is always happy with the care here, but gets frustrated at times with this situation of the same questions, and he states they are treated almost as if the pt is a burden to the hospital since she is here a lot. NOY offered support to Bulmaro, reassured him that if she needs to be here, bringing her in is the right thing to do. He states this time the doctor asked why they waited so long to bring her in, as her ammonia level was very high and pt was almost in a coma. Bulmaro explained they try to avoid coming to the hospital if they can, but knew she had to come in. They try to manage the ammonia at home, but sometimes they cannot. Support and reassurance given. Bulmaro states pt goes to [facility] in [place], and actually has an appointment next week. NOY encouraged him to check in w/the doctors about pt's lactulose, and if there is a better or different way to manage it. He states they have had these conversations in the past. He explains one time they drove down to [place] for the doctor to tell them to decrease the lactulose by 1 teaspoon. He states he understands this though, as the doctors need to see her. NOY spoke w/Bulmaro about the [facility] referral, Bulmaro is in agreement with this referral. SW explained they will call once pt is discharged. SW explained will remain available for support or discharge needs, and Bulmaro can ask RN for SW. Bulmaro thanked SW. At this time, no further needs are anticipated though SW remains available should any needs arise. ADRIEL Escobar, FOURCHETTE SEWER
--- NOTE | 2018-04-02 10:59 | RAD_ITS ---
STUDY: X-RAY - ABDOMEN/PELVIS REASON FOR EXAM: Female, 52 years old. Pain and distention TECHNIQUE: Single AP view of the abdomen / pelvis. # of Images: 1 COMPARISON: None. FINDINGS: Normal visualized lung bases. There is an unremarkable bowel gas pattern. There is no demonstrated free abdominal air. The visualized liver, spleen and kidneys are grossly normal in size and morphology. Normal soft tissue structures. There are diffuse degenerative changes of the visualized lumbar spine. RAD/Abdomen Single View (Portable) IMPRESSION: No acute findings Electronically Signed: Luis Eduardo Torres MD at 16:02 EDT , Service support ,
[2018-04-02 15:05] VITALS: BP 116/63; PULSE 85; RESP 18; TEMP 37.2; O2SAT 94
--- NOTE | 2018-04-02 16:55 | CHAPLAIN ---
Type of Pastoral Visit _x__ Initial Visit ___ Follow-up Visit ___ On-call Visit ___ General Patient Visit ___ Spiritual Assessment ___ Family Conference ___ Bereavement ___ Rapid Response ___ Code Blue ___ Other (describe below) Pastoral Care Referral From _x__ Patient ___ Family ___ Nurse ___ Physician ___ Block Press Operator ___ Test Equipment Mechanic ___ Other (describe below) Sacrament/Intervention _x__ Active listening ___ Anointing ___ Orthodox ___ Bereavement ___ Communion _x__ Susan exploration ___ _x__ Life review _x__ Prayer ___ Reconciliation ___ Sacrament of Sick _x__ Supportive presence ___ Wedding ___ Other (describe below) Pastoral Comments patient reports waiting on whether or not she will be able to have a liver transplant; pt admits to bouts of depression due to her condition; pt is struggling with being cared for instead of the caregiver; pt speaks of daily prayers and trusting God; pt seeks spiritual support and prayers for this time; pt expresses her feelings, hopes, and heartaches; also spoke with SO of patient and offered support
[2018-04-02 17:00] VITALS: PULSE 90; RESP 18
[2018-04-02 21:10] VITALS: BP 100/53; PULSE 103; RESP 18; TEMP 36.7; O2SAT 96
[2018-04-02] MEDS: Citalopram 40 MG TABLET PO (21:15)
[2018-04-02] MEDS: Pantoprazole Sodium 20 MG Tablet PO (21:18)
[2018-04-02] MEDS: carBAMazepine 200 MG Tablet 400 MG PO (21:18)
[2018-04-03 03:49] VITALS: BP 112/66; PULSE 83; RESP 20; TEMP 36.6; O2SAT 95
[2018-04-03 05:28] LABS: Absolute Lymphocyte Count 1.24 X10^3/ul (0.83-4.51); Absolute Neutrophil Count 2.5 X10^3/uL (2.0-7.7); Basophil# 0.01 X10^3/uL; Basophil% 0.2 % (0-1); Eosinophil# 0.06 X10^3/uL; Eosinophils% 1.4 % (0-5); Hematocrit 36.5 % (37-47); Hemoglobin 12.5 g/dl (12.0-15.0); Lymphocyte # 1.24 X10^3/ul (4.0); Mean Corp Hgb Conc 34.2 g/gl (32-36); Mean Corpuscular Hgb 30.8 pg (27.0-32.0); Mean Corpuscular Volume 89.9 fL (81-99); Mean Platelet Vol. 10.2 fl (6.2-12.0); Monocyte# 0.32 X10^3/uL; Monocyte% 7.7 % (0-10); Neutrophil # 2.51 X10^3/uL (2.7-7.7); Neutrophil % 60.7 % (47-70); Platelet Count 51 K/mm3 (150-450); RBC Distribution Width SD 42.3 fl (35.1-43.9); Red Blood Count 4.06 M/mm3 (4.2-5.4); White Blood Count 4.1 K/mm3 (4.4-11.0)
[2018-04-03 05:29] LABS: POSITIVE COUNT NO; POSITIVE DIFFERENTIAL NO; POSITIVE MORPHOLOGY NO
[2018-04-03 05:47] LABS: ALB/GLOB Ratio 0.8 RATIO (0.9-2.4); AST(SGOT) 28 U/L (15-37); Alanine Aminotransfer ALT/SGPT 18 U/L (13-56); Albumin, Serum 2.7 g/dL (3.2-5.0); Alkaline Phosphatase 144 U/L (45-117); Anion Gap 6 (5-15); BUN 2 mg/dL (7-18); BUN/Creat Ratio 4.2 RATIO (10-20); Calcium,Total 7.8 mg/dL (8.5-10.1); Chloride 110 mmol/L (98-107); Creatinine, Serum 0.48 mg/dL (0.55-1.02); EST Glomerular Filtration Rate 145 mL/min (>60); Est Glom Filt Rate - Afr Amer 176 mL/min (>60); Estimated Creatinine Clearance 126.17 ml/min; Globulin 3.4 g/dL (2.2-4.2); Glucose 142 mg/dL (74-106); Potassium 3.2 mmol/L (3.5-5.1); Protein, Total 6.1 g/dL (6.4-8.2); Sodium Level 144 mmol/L (136-145)
[2018-04-03] MEDS: Lactulose 20 GM/30 ML UDC 30 GM PO (06:06)
[2018-04-03] MEDS: Dicyclomine 10 MG Capsule PO (06:06)
[2018-04-03 06:37] VITALS: PULSE 88; RESP 16; O2SAT 98
[2018-04-03] MEDS: Albuterol 2.5 MG/3 ML VIAL.NEB. INHALATION (06:37)
[2018-04-03] MEDS: Budesonide Respules 0.5 MG/2 ML AMPUL.NEB. INHALATION (06:38)
[2018-04-03 08:02] VITALS: BP 103/54; PULSE 83; RESP 18; TEMP 36.7; O2SAT 94
--- NOTE | 2018-04-03 08:13 | NURSING ---
Offered Shower. Refused. I want to take it at home. Pt eager to go home today. Assessment complete, see findings. Breakfast arrived, eating at this time.
[2018-04-03] MEDS: rifAXIMin 550 MG Tablet PO (09:47)
--- NOTE | 2018-04-03 09:54 | PCM.DC ---
- Discharge Diagnoses Current Active Problems: Current Active and Chronic Problems Acute encephalopathy (Acute) Reason(s) for Visit for Discharge Instructions: Confusion You will use the following diet at home:: Cardiac Your food should be the consistency of: Regular Your liquids should be the consistency of: Regular/Thin Discharge Activity: Return to Normal Activity Additional Instructions: Please continue to follow-up with your primary automotive service writer as scheduled. Continue to use Lactulose and aim for bowel movements of 3 times a day. Discuss with your primary care doctor on tapering off use of Klonopin. Allergies/Adverse Reactions: Allergies diphenhydramine HCl [From Benadryl] Adverse Reaction (Verified 04/01/18 17:47) climb [place] rose CLIMB [place] lorazepam [From Ativan] Adverse Reaction (Verified 04/01/18 17:47) Climb the rose SHE FEELS LIKE SHE WANTS TO CLIMB THE ROSE prednisone Adverse Reaction (Verified 04/01/18 17:47) Other prochlorperazine edisylate [From Compazine] Adverse Reaction (Verified 04/01/18 17:47) climb [place] prochlorperazine maleate [From Compazine] Adverse Reaction (Verified 04/01/18 17:47) climb out of my body CLIMB OUT OF MY BODY promethazine HCl [From Phenergan] Adverse Reaction (Verified 04/01/18 17:47) [place] topiramate [From Topamax] Adverse Reaction (Verified 04/01/18 17:47) Other tramadol Adverse Reaction (Verified 04/01/18 17:47) climb the rose feels like going to climb rose Medications to take at Discharge Carbamazepine 400 mg PO QHS 12/27/14 Sumatriptan Succinate [Imitrex] 100 mg PO BID PRN PRN 01/31/15 Citalopram [Celexa] 40 mg PO QHS 07/29/16 Rifaximin [Xifaxan] 550 mg PO BID 05/04/17 Clonazepam [Klonopin] 1 mg PO BID PRN PRN 08/19/17 Linacolotide [Linzess] 290 mcg PO QHS 08/29/17 Omeprazole [Prilosec] 20 mg PO QHS 08/29/17 Cholecalciferol (Vitamin D3) [Vitamin D3] 5,000 unit PO DAILY 11/04/17 Zinc 50 mg PO QHS 11/04/17 Lactulose [Chronulac] 30 gm PO TID #5 bottle 11/05/17 Albuterol Inhaler [Ventolin Hfa] 1 - 2 puff INHALATION Q4H PRN PRN 02/08/18 Mometasone/Formoterol [Dulera 200 Mcg/5 Mcg Inhaler] 2 puff IN QHS 02/08/18 Orders to be completed after discharge: Comprehensive Metabolic Profil Time Frame: 1 Week, Location: Laboratory Primary Care Physician: Anna Meza NP-C [Primary Care Provider] - Please follow up with your Primary Care Physician in: within 2 weeks Test Results: Test results from this visit will be discussed in further detail at your follow-up appointment, if applicable. When: Follow-up with your automotive service writer as planned Proposed Discharge Date: 04/03/18
--- NOTE | 2018-04-03 09:58 | DCINST_ITS ---
- Discharge Diagnoses Current Active Problems: Current Active and Chronic Problems Acute encephalopathy (Acute) Reason(s) for Visit for Discharge Instructions: Confusion You will use the following diet at home:: Cardiac Your food should be the consistency of: Regular Your liquids should be the consistency of: Regular/Thin Discharge Activity: Return to Normal Activity Additional Instructions: Please continue to follow-up with your primary cosmetic sales advisor as scheduled. Continue to use Lactulose and aim for bowel movements of 3 times a day. Discuss with your primary care doctor on tapering off use of Klonopin. Allergies/Adverse Reactions: Allergies diphenhydramine HCl [From Benadryl] Adverse Reaction (Verified 04/01/18 17:47) climb [place] CLIM[place] lorazepam [From Ativan] Adverse Reaction (Verified 04/01/18 17:47) Climb the rose SHE FEELS LIKE SHE WANTS TO CLIMB THE ROSE prednisone Adverse Reaction (Verified 04/01/18 17:47) Other prochlorperazine edisylate [From Compazine] Adverse Reaction (Verified 04/01/18 17:47) climb [place] CLIMB [place] prochlorperazine maleate [From Compazine] Adverse Reaction (Verified 04/01/18 17:47) climb out of my body CLIMB OUT OF MY BODY promethazine HCl [From Phenergan] Adverse Reaction (Verified 04/01/18 17:47) climb [place]IM[place] topiramate [From Topamax] Adverse Reaction (Verified 04/01/18 17:47) Other tramadol Adverse Reaction (Verified 04/01/18 17:47) climb the rose feels like going to climb rose Medications to take at Discharge Carbamazepine 400 mg PO QHS 12/27/14 Sumatriptan Succinate [Imitrex] 100 mg PO BID PRN PRN 01/31/15 Citalopram [Celexa] 40 mg PO QHS 07/29/16 Rifaximin [Xifaxan] 550 mg PO BID 05/04/17 Clonazepam [Klonopin] 1 mg PO BID PRN PRN 08/19/17 Linacolotide [Linzess] 290 mcg PO QHS 08/29/17 Omeprazole [Prilosec] 20 mg PO QHS 08/29/17 Cholecalciferol (Vitamin D3) [Vitamin D3] 5,000 unit PO DAILY 11/04/17 Zinc 50 mg PO QHS 11/04/17 Lactulose [Chronulac] 30 gm PO TID #5 bottle 11/05/17 Albuterol Inhaler [Ventolin Hfa] 1 - 2 puff INHALATION Q4H PRN PRN 02/08/18 Mometasone/Formoterol [Dulera 200 Mcg/5 Mcg Inhaler] 2 puff IN QHS 02/08/18 Orders to be completed after discharge: Comprehensive Metabolic Profil Time Frame: 1 Week, Location: Laboratory Primary Care Physician: Anna Meza NP-C [Primary Care Provider] - Please follow up with your Primary Care Physician in: within 2 weeks Test Results: Test results from this visit will be discussed in further detail at your follow- up appointment, if applicable. When: Follow-up with your cosmetic sales advisor as planned Proposed Discharge Date: 04/03/18
--- NOTE | 2018-04-03 09:59 | PCM.DC.SUM ---
Discharge Date and Diagnosis - Problem List Patient Problems: Active and Suspected Problems Acute encephalopathy (Acute) Date of Admission: 04/01/18 Date of Discharge: 04/03/18 - Primary Discharge Diagnosis Active and Suspected Problems Acute encephalopathy (Acute) Hypokalemia - Secondary Discharge Diagnosis Chronic Problems MARMOLEJO (nonalcoholic steatohepatitis) (Chronic) Migraine (Chronic) Asthma (Chronic) Hiatal hernia (Chronic) Esophageal varices (Chronic) numerous banding Seizures (Chronic) last known 11/2016 Hospital Course and Treatment Imaging Results: Clinical Impression(s) from Imaging Studies KUB X-Ray 04/02/18 10:59 IMPRESSION: No acute findings Electronically Signed: Luis Eduardo Torres MD at 16:02 EDT , Service support , None Operations: None Procedures: None Summary of Care Provided: The patient is a 52 year old F with past medical history of MARMOLEJO, daughter hypertension, esophageal varices, splenomegaly, following with gastroenterology in [place], on transplant list, asthma, seizure disorder who comes in with worsening lethargy. Patient was also reportedly on oxycodone for umbilical pain. Her ammonia level on admission was 83, it increased to 97 and this morning. With lactulose administration, her ammonia level improved to 56. She was also found to be hypokalemic, started on oral potassium, discharged on same. With improvement in her ammonia and mentation, patient was discharged to follow-up with her primary auto porter on Friday. She was recommended to stop taking temazepam for sleep as well as oxycodone. I stressed about lactulose administration and aiming for 3 bowel movements a day. Patient admits to stopping her lactulose sometimes if she has hd too much diarrhea and not resuming for a day. Patient Problems: Active and Suspected Problems Acute encephalopathy (Acute) Subjective: On the day of discharge, patient was seen and examined. She is much more awake and alert this morning. Denies any nausea or vomiting. Has had multiple bowel movements. Denies any dizziness or chest pain no shortness of breath - Physical Exam General: Alert, Oriented x3, Cooperative, No apparent distress HEENT: Atraumatic, PERRLA, EOMI, Normocephalic Oral: Moist Mucosa Neck: Supple, No JVD, Negative Carotid Bruits Lungs: Clear to auscultation, Normal air movement Cardiovascular: Regular rate, Regular Rhythm, Normal S1, Normal S2, No murmurs Abdomen: Bowel Sounds Present, Soft, Non Tender, Non-Distended, No Hepato-splenomegaly Extremities: No edema Skin: No rashes, No breakdown Musculoskeletal: No Tenderness to Palpation of Joints or Extremities Lymphatic: No Cervical, Supraclavicular, or Inguinal Adenopathy Neurological: Cranial nerves II-XII grossly intact, Neuro grossly intact, - - No flapping tremors Psych/Mental Status: Normal Affect, Appropriate Vital Signs Temp Pulse Resp BP Pulse Ox 98.0 F 83 18 103/54 L 94 04/03/18 08:02 04/03/18 08:02 04/03/18 08:02 04/03/18 08:02 04/03/18 08:02 Oxygen Delivery Method Room Air Weight: 79 kg Body Mass Index (BMI) 29.0 Intake and Output for Last 24 Hours 04/01/18 04/02/18 04/03/18 23:59 23:59 23:59 Intake Total 1290 / 1290 650 / 650 Balance 1290 / 1290 650 / 650 Laboratory Tests Past 24 Hrs 04/02/18 04/03/18 04/03/18 05:14 05:15 05:15 WBC 4.1 L RBC 4.06 L Hgb 12.5 Hct 36.5 L MCV 89.9 MCH 30.8 MCHC 34.2 RDW 13.0 RDW Differential 42.3 Plt Count 51 L MPV 10.2 Immature Gran % (Auto) 0.000 Neut % (Auto) 60.7 Lymph % (Auto) 30.0 [place] % (Auto) 7.7 Eos % (Auto) 1.4 Baso % (Auto) 0.2 Absolute Neuts (auto) 2.5 Absolute Lymphs (auto) 1.24 Total Counted Not Reportable Sodium 144 Potassium 3.2 L Chloride 110 H Carbon Dioxide 28.0 Anion Gap 6 BUN 2 L Creatinine 0.48 L Estim Creat Clear Calc 126.17 Est GFR (MDRD) Af Amer 176 Est GFR (MDRD) Non-Af 145 BUN/Creatinine Ratio 4.2 L Glucose 142 H Calcium 7.8 L Total Bilirubin 1.50 H 1.00 Direct Bilirubin 0.60 H AST 38 H 28 ALT 19 18 Alkaline Phosphatase 135 H 144 H Ammonia Total Protein 6.3 L 6.1 L Albumin 2.9 L 2.7 L Globulin 3.4 3.4 Albumin/Globulin Ratio 0.8 L 04/03/18 05:15 WBC RBC Hgb Hct MCV MCH MCHC RDW RDW Differential Plt Count MPV Immature Gran % (Auto) Neut % (Auto) Lymph % (Auto) [place] % (Auto) Eos % (Auto) Baso % (Auto) Absolute Neuts (auto) Absolute Lymphs (auto) Total Counted Sodium Potassium Chloride Carbon Dioxide Anion Gap BUN Creatinine Estim Creat Clear Calc Est GFR (MDRD) Af Amer Est GFR (MDRD) Non-Af BUN/Creatinine Ratio Glucose Calcium Total Bilirubin Direct Bilirubin AST ALT Alkaline Phosphatase Ammonia 56.0 H Total Protein Albumin Globulin Albumin/Globulin Ratio Discharge Diet: 2000 mg Sodium Diet Discharge Activity: Return to Normal Activity Home Medications: Medications to take at Discharge Carbamazepine 400 mg PO QHS 12/27/14 Sumatriptan Succinate [Imitrex] 100 mg PO BID PRN PRN 01/31/15 Citalopram [Celexa] 40 mg PO QHS 07/29/16 Rifaximin [Xifaxan] 550 mg PO BID 05/04/17 Clonazepam [Klonopin] 1 mg PO BID PRN PRN 08/19/17 Linacolotide [Linzess] 290 mcg PO QHS 08/29/17 Omeprazole [Prilosec] 20 mg PO QHS 08/29/17 Cholecalciferol (Vitamin D3) [Vitamin D3] 5,000 unit PO DAILY 11/04/17 Zinc 50 mg PO QHS 11/04/17 Lactulose [Chronulac] 30 gm PO TID #5 bottle 11/05/17 Albuterol Inhaler [Ventolin Hfa] 1 - 2 puff INHALATION Q4H PRN PRN 02/08/18 Mometasone/Formoterol [Dulera 200 Mcg/5 Mcg Inhaler] 2 puff IN QHS 02/08/18 Potassium Chloride [Klor-Con] 20 meq PO DAILY #14 packet 04/03/18 Other Amb Orders: Comprehensive Metabolic Profil Time Frame: 1 Week, Location: Laboratory Primary Care Physician: Anna Meza NP-C [Primary Care Provider] - Please follow up with your Primary Care Physician in: within 2 weeks When: Follow-up with your auto porter as planned Disposition: Home Minutes spent on discharge:: 45 Patient Condition:: Stable Medical Necessity - Tobacco Use Smoking Status: Never smoker Tobacco Use: Non-smoker Meaningful Use Info Meaningful Use Diagnoses (Choose all that apply): None applicable Code Visit Inpatient E&M: 78703 Disch Hosp
--- NOTE | 2018-04-03 10:05 | DS.PCM_ITS ---
Discharge Date and Diagnosis - Problem List Patient Problems: Active and Suspected Problems Acute encephalopathy (Acute) Date of Admission: 04/01/18 Date of Discharge: 04/03/18 - Primary Discharge Diagnosis Active and Suspected Problems Acute encephalopathy (Acute) Hypokalemia - Secondary Discharge Diagnosis Chronic Problems MARMOLEJO (nonalcoholic steatohepatitis) (Chronic) Migraine (Chronic) Asthma (Chronic) Hiatal hernia (Chronic) Esophageal varices (Chronic) numerous banding Seizures (Chronic) last known 11/2016 Hospital Course and Treatment Imaging Results: Clinical Impression(s) from Imaging Studies KUB X-Ray 04/02/18 10:59 IMPRESSION: No acute findings Electronically Signed: Luis Eduardo Torres MD at 16:02 EDT , Service support , None Operations: None Procedures: None Summary of Care Provided: The patient is a 52 year old F with past medical history of MARMOLEJO, daughter hypertension, esophageal varices, splenomegaly, following with gastroenterology in [place], on transplant list, asthma, seizure disorder who comes in with worsening lethargy. Patient was also reportedly on oxycodone for umbilical pain. Her ammonia level on admission was 83, it increased to 97 and this morning. With lactulose administration, her ammonia level improved to 56. She was also found to be hypokalemic, started on oral potassium, discharged on same. With improvement in her ammonia and mentation, patient was discharged to follow- up with her primary supervisor real estate office on Friday. She was recommended to stop taking temazepam for sleep as well as oxycodone. I stressed about lactulose administration and aiming for 3 bowel movements a day. Patient admits to stopping her lactulose sometimes if she has hd too much diarrhea and not resuming for a day. Patient Problems: Active and Suspected Problems Acute encephalopathy (Acute) Subjective: On the day of discharge, patient was seen and examined. She is much more awake and alert this morning. Denies any nausea or vomiting. Has had multiple bowel movements. Denies any dizziness or chest pain no shortness of breath - Physical Exam General: Alert, Oriented x3, Cooperative, No apparent distress HEENT: Atraumatic, PERRLA, EOMI, Normocephalic Oral: Moist Mucosa Neck: Supple, No JVD, Negative Carotid Bruits Lungs: Clear to auscultation, Normal air movement Cardiovascular: Regular rate, Regular Rhythm, Normal S1, Normal S2, No murmurs Abdomen: Bowel Sounds Present, Soft, Non Tender, Non-Distended, No Hepato- splenomegaly Extremities: No edema Skin: No rashes, No breakdown Musculoskeletal: No Tenderness to Palpation of Joints or Extremities Lymphatic: No Cervical, Supraclavicular, or Inguinal Adenopathy Neurological: Cranial nerves II-XII grossly intact, Neuro grossly intact, - - No flapping tremors Psych/Mental Status: Normal Affect, Appropriate Vital Signs Temp Pulse Resp BP Pulse Ox 98.0 F 83 18 103/54 L 94 04/03/18 08:02 04/03/18 08:02 04/03/18 08:02 04/03/18 08:02 04/03/18 08:02 Oxygen Delivery Method Room Air Weight: 79 kg Body Mass Index (BMI) 29.0 Intake and Output for Last 24 Hours 04/01/18 04/02/18 04/03/18 23:59 23:59 23:59 Intake Total 1290 / 1290 650 / 650 Balance 1290 / 1290 650 / 650 Laboratory Tests Past 24 Hrs 04/02/18 04/03/18 04/03/18 05:14 05:15 05:15 WBC 4.1 L RBC 4.06 L Hgb 12.5 Hct 36.5 L MCV 89.9 MCH 30.8 MCHC 34.2 RDW 13.0 RDW Differential 42.3 Plt Count 51 L MPV 10.2 Immature Gran % (Auto) 0.000 Neut % (Auto) 60.7 Lymph % (Auto) 30.0 [place] % (Auto) 7.7 Eos % (Auto) 1.4 Baso % (Auto) 0.2 Absolute Neuts (auto) 2.5 Absolute Lymphs (auto) 1.24 Total Counted Not Reportable Sodium 144 Potassium 3.2 L Chloride 110 H Carbon Dioxide 28.0 Anion Gap 6 BUN 2 L Creatinine 0.48 L Estim Creat Clear Calc 126.17 Est GFR (MDRD) Af Amer 176 Est GFR (MDRD) Non-Af 145 BUN/Creatinine Ratio 4.2 L Glucose 142 H Calcium 7.8 L Total Bilirubin 1.50 H 1.00 Direct Bilirubin 0.60 H AST 38 H 28 ALT 19 18 Alkaline Phosphatase 135 H 144 H Ammonia Total Protein 6.3 L 6.1 L Albumin 2.9 L 2.7 L Globulin 3.4 3.4 Albumin/Globulin Ratio 0.8 L 04/03/18 05:15 WBC RBC Hgb Hct MCV MCH MCHC RDW RDW Differential Plt Count MPV Immature Gran % (Auto) Neut % (Auto) Lymph % (Auto) [place] % (Auto) Eos % (Auto) Baso % (Auto) Absolute Neuts (auto) Absolute Lymphs (auto) Total Counted Sodium Potassium Chloride Carbon Dioxide Anion Gap BUN Creatinine Estim Creat Clear Calc Est GFR (MDRD) Af Amer Est GFR (MDRD) Non-Af BUN/Creatinine Ratio Glucose Calcium Total Bilirubin Direct Bilirubin AST ALT Alkaline Phosphatase Ammonia 56.0 H Total Protein Albumin Globulin Albumin/Globulin Ratio Discharge Diet: 2000 mg Sodium Diet Discharge Activity: Return to Normal Activity Home Medications: Medications to take at Discharge Carbamazepine 400 mg PO QHS 12/27/14 Sumatriptan Succinate [Imitrex] 100 mg PO BID PRN PRN 01/31/15 Citalopram [Celexa] 40 mg PO QHS 07/29/16 Rifaximin [Xifaxan] 550 mg PO BID 05/04/17 Clonazepam [Klonopin] 1 mg PO BID PRN PRN 08/19/17 Linacolotide [Linzess] 290 mcg PO QHS 08/29/17 Omeprazole [Prilosec] 20 mg PO QHS 08/29/17 Cholecalciferol (Vitamin D3) [Vitamin D3] 5,000 unit PO DAILY 11/04/17 Zinc 50 mg PO QHS 11/04/17 Lactulose [Chronulac] 30 gm PO TID #5 bottle 11/05/17 Albuterol Inhaler [Ventolin Hfa] 1 - 2 puff INHALATION Q4H PRN PRN 02/08/18 Mometasone/Formoterol [Dulera 200 Mcg/5 Mcg Inhaler] 2 puff IN QHS 02/08/18 Potassium Chloride [Klor-Con] 20 meq PO DAILY #14 packet 04/03/18 Other Amb Orders: Comprehensive Metabolic Profil Time Frame: 1 Week, Location: Laboratory Primary Care Physician: Anna Meza NP-C [Primary Care Provider] - Please follow up with your Primary Care Physician in: within 2 weeks When: Follow-up with your supervisor real estate office as planned Disposition: Home Minutes spent on discharge:: 45 Patient Condition:: Stable Medical Necessity - Tobacco Use Smoking Status: Never smoker Tobacco Use: Non-smoker Meaningful Use Info Meaningful Use Diagnoses (Choose all that apply): None applicable Code Visit Inpatient E&M: 56984 Disch Hosp
--- NOTE | 2018-04-03 10:07 | CASEMGMT ---
Pt is being discharged today, SW called Miguel with [facility] to let her know, also suggested they may benefit from speaking w/the SW from [facility]. Miguel states Karen will open their case on Friday. NOY also suggested that Karen speak w/Bulmaro, pt's boyfriend and POA, as pt is confused much of the time as per Bulmaro. No further needs, pt home today. ADRIEL Escobar, [employer] DEV[employer] ENGINEER
--- NOTE | 2018-04-07 13:27 | CCN.REFER ---
Visit to home per Karen Cali LPN - Patient and boyfriend both present. Paperwork from [place] shown to [employer] [employer] stating to hold one dose of lactulose if water diarrhea occurs. Patient does this, and then she will resume normal dosing of lactulose at next scheduled time. BF and patient both state that patient is compliant with all medications including lactulose. Patient is going to [facility] Doctor tomorrow morning to have a Scope done. Patient was told that she may get bumped up on waiting list for liver, and she may be getting a new liver in 90 days. She wants to think about our CCN program, and she wants to wait and see if she is bumped on waiting to list to decide if she wants us to make routine visits. Will await phone call and follow up next week after scheduled testing is resulted from this week. JULIA left for Miguelina to make aware.
--- NOTE | 2018-04-28 09:47 | CCN.REFER ---
Patient declining CCN at this time. Feels that she has adequate support and is close to getting new liver. Possibly getting MELD scored moved from 13 to 15.
== END 2018-04-03 10:52 | disposition home or self-care (01) ==
LOC: ED 18:36 → MS2 19:37
PROVIDERS: Admitting Provider Hospitalist; Emergency Provider Emergency Medicine; Family Provider Nurse Practitioner Primary Care; PCP Nurse Practitioner Primary Care; Visit Provider Internal Medicine
DX: G93.41 Metabolic encephalopathy (principal); Z79.899 Other long term (current) drug therapy; K75.81 Nonalcoholic steatohepatitis (NASH); Z76.82 Awaiting organ transplant status; K72.00 Acute and subacute hepatic failure without coma; K44.9 Diaphragmatic hernia without obstruction or gangrene; G43.909 Migraine, unspecified, not intractable, without status migrainosus; J45.909 Unspecified asthma, uncomplicated; G40.909 Epilepsy, unspecified, not intractable, without status epilepticus; F41.9 Anxiety disorder, unspecified; F32.9 Major depressive disorder, single episode, unspecified; K21.9 Gastro-esophageal reflux disease without esophagitis; K58.9 Irritable bowel syndrome, unspecified; E87.6 Hypokalemia
CPT/HCPCS: 36415; 74018; 80048; 80053; 80076; 82140; 85025; 85610; 94640; 96374; 96375; 96376; 97110; 97162; 97165; 99218; 99284; J7030; J7040; A4216; G0378; J2405

== ENCOUNTER → 2018-04-22 14:14 | Outpatient (CLI) | payer MEDICAID, SELFPAY ==
[2018-04-22 14:45] LABS: International Normalized Ratio 1.4; Prothrombin Time (Protime)PT. 17.6 SECONDS (11.7-14.9)
[2018-04-22 15:01] LABS: Creatinine, Serum 0.63 mg/dL (0.55-1.02); EST Glomerular Filtration Rate 106 mL/min (>60); Est Glom Filt Rate - Afr Amer 128 mL/min (>60); Sodium Level 138 mmol/L (136-145)
== END ==
PROVIDERS: Family Provider Nurse Practitioner Primary Care; PCP Nurse Practitioner Primary Care; Referring Provider Nurse Practitioner Primary Care; Visit Provider Nurse Practitioner Primary Care
DX: K74.60 Unspecified cirrhosis of liver (principal)
CPT/HCPCS: 36415; 82140; 82247; 82565; 84295; 85610

== ENCOUNTER → 2018-05-19 09:33 | Outpatient (CLI) | payer MEDICAID, SELFPAY ==
[2018-05-19 10:32] LABS: Hematocrit 38.2 % (37-47); Hemoglobin 13.2 g/dl (12.0-15.0); Mean Corp Hgb Conc 34.6 g/gl (32-36); Mean Corpuscular Hgb 30.7 pg (27.0-32.0); Mean Corpuscular Volume 88.8 fL (81-99); Mean Platelet Vol. 10.8 fl (6.2-12.0); Platelet Count 62 K/mm3 (150-450); RBC Distribution Width CV 13.3 % (11.6-14.6); RBC Distribution Width SD 42.5 fl (35.1-43.9)
[2018-05-19 10:38] LABS: Scan Indicated on CBC? Y/N NO
[2018-05-19 10:46] LABS: International Normalized Ratio 1.6; Prothrombin Time (Protime)PT. 18.6 SECONDS (11.7-14.9)
[2018-05-19 11:07] LABS: AST(SGOT) 38 U/L (15-37); Alanine Aminotransfer ALT/SGPT 24 U/L (13-56); Alkaline Phosphatase 155 U/L (45-117); Anion Gap 7 (5-15); BUN 4 mg/dL (7-18); Bilirubin, Direct 0.51 mg/dL (0.00-0.30); Calcium,Total 7.9 mg/dL (8.5-10.1); Chloride 111 mmol/L (98-107); EST Glomerular Filtration Rate 139 mL/min (>60); Est Glom Filt Rate - Afr Amer 168 mL/min (>60); Globulin 3.5 g/dL (2.2-4.2); Glucose 266 mg/dL (74-106); Potassium 3.8 mmol/L (3.5-5.1); Protein, Total 6.5 g/dL (6.4-8.2); Sodium Level 142 mmol/L (136-145)
[2018-05-20 11:59] LABS: AFP, Tumor Marker 9.3 ng/mL (0.0-8.3)
== END ==
PROVIDERS: Family Provider Nurse Practitioner Primary Care; PCP Nurse Practitioner Primary Care
DX: Z01.818 Encounter for other preprocedural examination (principal)
CPT/HCPCS: 36415; 80048; 80076; 82105; 85027; 85610

== ENCOUNTER 2018-07-09 11:22 | Outpatient (RCR) | payer MEDICAID, SELFPAY ==
[2018-06-22 10:57] LABS: Absolute Lymphocyte Count 1.66 X10^3/ul (0.83-4.51); Absolute Neutrophil Count 5.3 X10^3/uL (2.0-7.7); Basophil# 0.07 X10^3/uL; Basophil% 0.9 % (0-1); Eosinophil# 0.15 X10^3/uL; Hematocrit 34.1 % (37-47); Hemoglobin 11.1 g/dl (12.0-15.0); Lymphocyte # 1.66 X10^3/ul (4.0); Lymphocyte % 21.9 % (19-41); Mean Corp Hgb Conc 32.6 g/gl (32-36); Mean Corpuscular Hgb 30.3 pg (27.0-32.0); Mean Corpuscular Volume 93.2 fL (81-99); Mean Platelet Vol. 9.8 fl (6.2-12.0); Monocyte% 5.3 % (0-10); Neutrophil # 5.28 X10^3/uL (2.7-7.7); Neutrophil % 69.5 % (47-70); Platelet Count 202 K/mm3 (150-450); RBC Distribution Width SD 57.5 fl (35.1-43.9); Red Blood Count 3.66 M/mm3 (4.2-5.4); White Blood Count 7.6 K/mm3 (4.4-11.0)
[2018-06-22 10:59] LABS: POSITIVE COUNT NO; POSITIVE DIFFERENTIAL NO; POSITIVE MORPHOLOGY NO
[2018-06-22 11:37] LABS: AST(SGOT) 16 U/L (15-37); Alanine Aminotransfer ALT/SGPT 27 U/L (13-56); Albumin, Serum 3.4 g/dL (3.2-5.0); Alkaline Phosphatase 153 U/L (45-117); Anion Gap 11 (5-15); BUN 18 mg/dL (7-18); BUN/Creat Ratio 24.4 RATIO (10-20); Calcium,Total 9.2 mg/dL (8.5-10.1); Chloride 107 mmol/L (98-107); Creatinine, Serum 0.74 mg/dL (0.55-1.02); EST Glomerular Filtration Rate 88 mL/min (>60); Est Glom Filt Rate - Afr Amer 107 mL/min (>60); Globulin 3.5 g/dL (2.2-4.2); Glucose 145 mg/dL (74-106); Phosphorus 4.8 mg/dL (2.5-4.9); Potassium 4.4 mmol/L (3.5-5.1); Protein, Total 6.9 g/dL (6.4-8.2); Sodium Level 143 mmol/L (136-145)
[2018-06-25 10:12] LABS: Absolute Neutrophil Count 5.2 X10^3/uL (2.0-7.7); Basophil# 0.07 X10^3/uL; Basophil% 0.9 % (0-1); Eosinophil# 0.05 X10^3/uL; Eosinophils% 0.7 % (0-5); Hematocrit 32.9 % (37-47); Hemoglobin 10.9 g/dl (12.0-15.0); Lymphocyte % 24.1 % (19-41); Mean Corp Hgb Conc 33.1 g/gl (32-36); Mean Corpuscular Hgb 30.2 pg (27.0-32.0); Mean Corpuscular Volume 91.1 fL (81-99); Mean Platelet Vol. 9.4 fl (6.2-12.0); Monocyte# 0.27 X10^3/uL; Monocyte% 3.6 % (0-10); Neutrophil # 5.22 X10^3/uL (2.7-7.7); POSITIVE COUNT NO; POSITIVE DIFFERENTIAL NO; POSITIVE MORPHOLOGY NO; Platelet Count 172 K/mm3 (150-450); RBC Distribution Width CV 16.2 % (11.6-14.6); RBC Distribution Width SD 53.3 fl (35.1-43.9); Red Blood Count 3.61 M/mm3 (4.2-5.4); White Blood Count 7.5 K/mm3 (4.4-11.0)
[2018-06-25 10:55] LABS: BUN 22 mg/dL (7-18); Glucose 155 mg/dL (74-106)
[2018-06-25 10:56] LABS: AST(SGOT) 15 U/L (15-37); Alanine Aminotransfer ALT/SGPT 23 U/L (13-56); Albumin, Serum 3.7 g/dL (3.2-5.0); Alkaline Phosphatase 149 U/L (45-117); Anion Gap 9 (5-15); BUN/Creat Ratio 31.3 RATIO (10-20); Bilirubin, Direct 0.44 mg/dL (0.00-0.30); Calcium,Total 8.5 mg/dL (8.5-10.1); Chloride 104 mmol/L (98-107); EST Glomerular Filtration Rate 93 mL/min (>60); Est Glom Filt Rate - Afr Amer 113 mL/min (>60); Globulin 3.7 g/dL (2.2-4.2); Potassium 4.1 mmol/L (3.5-5.1); Protein, Total 7.4 g/dL (6.4-8.2); Sodium Level 138 mmol/L (136-145)
[2018-06-29 09:50] LABS: Tacrolimus (FK506) 9.6 ng/mL (2.0-20.0)
[2018-07-02 11:49] LABS: Hemoglobin 10.8 g/dl (12.0-15.0); Mean Corp Hgb Conc 32.7 g/gl (32-36); Mean Corpuscular Hgb 30.1 pg (27.0-32.0); Mean Corpuscular Volume 91.9 fL (81-99); Mean Platelet Vol. 10.2 fl (6.2-12.0); Platelet Count 143 K/mm3 (150-450); RBC Distribution Width CV 16.2 % (11.6-14.6); Red Blood Count 3.59 M/mm3 (4.2-5.4); Scan Indicated on CBC? Y/N NO; White Blood Count 5.7 K/mm3 (4.4-11.0)
[2018-07-02 12:46] LABS: ALB/GLOB Ratio 1.2 RATIO (0.9-2.4); AST(SGOT) 19 U/L (15-37); Alanine Aminotransfer ALT/SGPT 22 U/L (13-56); Albumin, Serum 3.8 g/dL (3.2-5.0); Alkaline Phosphatase 124 U/L (45-117); Anion Gap 9 (5-15); BUN 24 mg/dL (7-18); BUN/Creat Ratio 28.5 RATIO (10-20); Bilirubin, Direct 0.32 mg/dL (0.00-0.30); Calcium,Total 8.9 mg/dL (8.5-10.1); Chloride 106 mmol/L (98-107); Creatinine, Serum 0.84 mg/dL (0.55-1.02); EST Glomerular Filtration Rate 76 mL/min (>60); Est Glom Filt Rate - Afr Amer 92 mL/min (>60); Globulin 3.2 g/dL (2.2-4.2); Glucose 134 mg/dL (74-106); Potassium 3.6 mmol/L (3.5-5.1); Sodium Level 140 mmol/L (136-145)
[2018-07-05 11:29] LABS: Tacrolimus (FK506) 12.8 ng/mL (2.0-20.0)
[2018-07-09 12:45] LABS: Absolute Lymphocyte Count 1.49 X10^3/ul (0.83-4.51); Absolute Neutrophil Count 3.5 X10^3/uL (2.0-7.7); Basophil# 0.03 X10^3/uL; Basophil% 0.6 % (0-1); Eosinophil# 0.01 X10^3/uL; Eosinophils% 0.2 % (0-5); Hematocrit 33.9 % (37-47); Hemoglobin 11.2 g/dl (12.0-15.0); Lymphocyte # 1.49 X10^3/ul (4.0); Lymphocyte % 27.4 % (19-41); Mean Corpuscular Hgb 30.3 pg (27.0-32.0); Mean Corpuscular Volume 91.6 fL (81-99); Mean Platelet Vol. 10.3 fl (6.2-12.0); Monocyte# 0.34 X10^3/uL; Monocyte% 6.3 % (0-10); Neutrophil # 3.54 X10^3/uL (2.7-7.7); Neutrophil % 65.1 % (47-70); Platelet Count 132 K/mm3 (150-450); RBC Distribution Width CV 15.6 % (11.6-14.6); RBC Distribution Width SD 51.1 fl (35.1-43.9); White Blood Count 5.4 K/mm3 (4.4-11.0)
[2018-07-09 12:48] LABS: POSITIVE COUNT NO; POSITIVE DIFFERENTIAL NO; POSITIVE MORPHOLOGY NO
[2018-07-09 13:18] LABS: ALB/GLOB Ratio 1.1 RATIO (0.9-2.4); AST(SGOT) 32 U/L (15-37); Alanine Aminotransfer ALT/SGPT 44 U/L (13-56); Albumin, Serum 3.7 g/dL (3.2-5.0); Alkaline Phosphatase 140 U/L (45-117); Anion Gap 9 (5-15); BUN 16 mg/dL (7-18); BUN/Creat Ratio 16.7 RATIO (10-20); Bilirubin, Direct 0.26 mg/dL (0.00-0.30); Calcium,Total 8.9 mg/dL (8.5-10.1); Chloride 105 mmol/L (98-107); Creatinine, Serum 0.96 mg/dL (0.55-1.02); EST Glomerular Filtration Rate 65 mL/min (>60); Est Glom Filt Rate - Afr Amer 79 mL/min (>60); Globulin 3.4 g/dL (2.2-4.2); Glucose 129 mg/dL (74-106); Protein, Total 7.1 g/dL (6.4-8.2); Sodium Level 141 mmol/L (136-145)
== END 2018-07-16 23:59 ==
LOC: LAB.FUTURE 11:22
PROVIDERS: Family Provider Nurse Practitioner Primary Care; PCP Nurse Practitioner Primary Care
DX: Z94.4 Liver transplant status (principal); Z79.899 Other long term (current) drug therapy
CPT/HCPCS: 36415; 80053; 80197; 82248; 84100; 85025; 85027

== ENCOUNTER 2018-08-10 10:42 | Outpatient (RCR) | payer MEDICAID, SELFPAY ==
[2018-07-27 11:11] LABS: Absolute Lymphocyte Count 0.98 X10^3/ul (0.83-4.51); Absolute Neutrophil Count 2.6 X10^3/uL (2.0-7.7); Basophil# 0.01 X10^3/uL; Basophil% 0.3 % (0-1); Eosinophil# 0.04 X10^3/uL; Hemoglobin 11.3 g/dl (12.0-15.0); Lymphocyte # 0.98 X10^3/ul (4.0); Lymphocyte % 25.1 % (19-41); Mean Corp Hgb Conc 32.3 g/gl (32-36); Mean Corpuscular Hgb 28.3 pg (27.0-32.0); Mean Corpuscular Volume 87.5 fL (81-99); Mean Platelet Vol. 10.3 fl (6.2-12.0); Monocyte# 0.26 X10^3/uL; Monocyte% 6.7 % (0-10); Neutrophil % 66.6 % (47-70); Platelet Count 87 K/mm3 (150-450); RBC Distribution Width CV 14.1 % (11.6-14.6); RBC Distribution Width SD 45.4 fl (35.1-43.9); White Blood Count 3.9 K/mm3 (4.4-11.0)
[2018-07-27 11:13] LABS: POSITIVE COUNT NO; POSITIVE DIFFERENTIAL NO; POSITIVE MORPHOLOGY NO
[2018-07-27 12:12] LABS: AST(SGOT) 57 U/L (15-37); Alanine Aminotransfer ALT/SGPT 104 U/L (13-56); Albumin, Serum 3.4 g/dL (3.2-5.0); Alkaline Phosphatase 183 U/L (45-117); Anion Gap 9 (5-15); BUN 16 mg/dL (7-18); BUN/Creat Ratio 17.9 RATIO (10-20); Calcium,Total 8.4 mg/dL (8.5-10.1); Chloride 106 mmol/L (98-107); Creatinine, Serum 0.89 mg/dL (0.55-1.02); EST Glomerular Filtration Rate 71 mL/min (>60); Est Glom Filt Rate - Afr Amer 86 mL/min (>60); Globulin 3.1 g/dL (2.2-4.2); Glucose 165 mg/dL (74-106); Phosphorus 3.8 mg/dL (2.5-4.9); Potassium 4.2 mmol/L (3.5-5.1); Protein, Total 6.5 g/dL (6.4-8.2); Sodium Level 142 mmol/L (136-145)
[2018-07-29 12:43] LABS: Tacrolimus (FK506) 13.3 ng/mL (2.0-20.0)
[2018-07-30 11:51] LABS: Absolute Lymphocyte Count 1.06 X10^3/ul (0.83-4.51); Absolute Neutrophil Count 2.9 X10^3/uL (2.0-7.7); Basophil# 0.02 X10^3/uL; Basophil% 0.5 % (0-1); Eosinophil# 0.04 X10^3/uL; Hematocrit 34.4 % (37-47); Hemoglobin 11.2 g/dl (12.0-15.0); Lymphocyte # 1.06 X10^3/ul (4.0); Lymphocyte % 25.4 % (19-41); Mean Corp Hgb Conc 32.6 g/gl (32-36); Mean Corpuscular Hgb 28.7 pg (27.0-32.0); Mean Corpuscular Volume 88.2 fL (81-99); Monocyte# 0.17 X10^3/uL; Monocyte% 4.1 % (0-10); Neutrophil # 2.87 X10^3/uL (2.7-7.7); Neutrophil % 68.8 % (47-70); Platelet Count 105 K/mm3 (150-450); RBC Distribution Width CV 13.9 % (11.6-14.6); White Blood Count 4.2 K/mm3 (4.4-11.0)
[2018-07-30 11:55] LABS: POSITIVE COUNT NO; POSITIVE DIFFERENTIAL NO; POSITIVE MORPHOLOGY NO
[2018-07-30 12:16] LABS: AST(SGOT) 60 U/L (15-37); Alanine Aminotransfer ALT/SGPT 101 U/L (13-56); Albumin, Serum 3.5 g/dL (3.2-5.0); Alkaline Phosphatase 162 U/L (45-117); Anion Gap 8 (5-15); BUN 15 mg/dL (7-18); BUN/Creat Ratio 15.3 RATIO (10-20); Bilirubin, Direct 0.19 mg/dL (0.00-0.30); Calcium,Total 8.6 mg/dL (8.5-10.1); Chloride 105 mmol/L (98-107); Creatinine, Serum 0.98 mg/dL (0.55-1.02); EST Glomerular Filtration Rate 64 mL/min (>60); Est Glom Filt Rate - Afr Amer 77 mL/min (>60); Globulin 3.1 g/dL (2.2-4.2); Glucose 207 mg/dL (74-106); Phosphorus 4.5 mg/dL (2.5-4.9); Potassium 4.2 mmol/L (3.5-5.1); Protein, Total 6.6 g/dL (6.4-8.2); Sodium Level 140 mmol/L (136-145)
[2018-08-03 11:14] LABS: Tacrolimus (FK506) 12.5 ng/mL (2.0-20.0)
[2018-08-10 11:40] LABS: Absolute Lymphocyte Count 1.65 X10^3/ul (0.83-4.51); Absolute Neutrophil Count 2.7 X10^3/uL (2.0-7.7); Basophil# 0.03 X10^3/uL; Basophil% 0.7 % (0-1); Eosinophil# 0.03 X10^3/uL; Eosinophils% 0.7 % (0-5); Hemoglobin 11.6 g/dl (12.0-15.0); Lymphocyte # 1.65 X10^3/ul (4.0); Lymphocyte % 35.8 % (19-41); Mean Corp Hgb Conc 33.1 g/gl (32-36); Mean Corpuscular Hgb 28.6 pg (27.0-32.0); Mean Corpuscular Volume 86.4 fL (81-99); Mean Platelet Vol. 11.2 fl (6.2-12.0); Monocyte% 4.3 % (0-10); Neutrophil # 2.69 X10^3/uL (2.7-7.7); Neutrophil % 58.3 % (47-70); Platelet Count 85 K/mm3 (150-450); RBC Distribution Width CV 13.5 % (11.6-14.6); RBC Distribution Width SD 41.9 fl (35.1-43.9); Red Blood Count 4.05 M/mm3 (4.2-5.4); White Blood Count 4.6 K/mm3 (4.4-11.0)
[2018-08-10 11:41] LABS: POSITIVE COUNT NO; POSITIVE DIFFERENTIAL NO; POSITIVE MORPHOLOGY NO
[2018-08-10 12:17] LABS: AST(SGOT) 46 U/L (15-37); Alanine Aminotransfer ALT/SGPT 79 U/L (13-56); Albumin, Serum 3.7 g/dL (3.2-5.0); Alkaline Phosphatase 134 U/L (45-117); Anion Gap 10 (5-15); BUN 24 mg/dL (7-18); BUN/Creat Ratio 22.2 RATIO (10-20); Bilirubin, Direct 0.19 mg/dL (0.00-0.30); Calcium,Total 8.8 mg/dL (8.5-10.1); Chloride 106 mmol/L (98-107); Creatinine, Serum 1.08 mg/dL (0.55-1.02); EST Glomerular Filtration Rate 57 mL/min (>60); Est Glom Filt Rate - Afr Amer 69 mL/min (>60); Globulin 3.2 g/dL (2.2-4.2); Glucose 142 mg/dL (74-106); Phosphorus 4.1 mg/dL (2.5-4.9); Potassium 4.1 mmol/L (3.5-5.1); Protein, Total 6.9 g/dL (6.4-8.2); Sodium Level 141 mmol/L (136-145)
[2018-08-13 12:16] LABS: Tacrolimus (FK506) 13.3 ng/mL (2.0-20.0)
== END 2018-08-13 23:59 ==
LOC: LAB.FUTURE 10:42
PROVIDERS: Family Provider Nurse Practitioner Primary Care; PCP Nurse Practitioner Primary Care
DX: Z94.4 Liver transplant status (principal); Z79.899 Other long term (current) drug therapy
CPT/HCPCS: 36415; 80048; 80076; 80197; 84100; 85025

== ENCOUNTER 2018-09-07 11:08 | Outpatient (RCR) | payer MEDICAID, SELFPAY ==
[2018-08-28 12:14] LABS: Absolute Neutrophil Count 1.4 X10^3/uL (2.0-7.7); Basophil# 0.02 X10^3/uL; Basophil% 0.8 % (0-1); Eosinophil# 0.02 X10^3/uL; Eosinophils% 0.8 % (0-5); Hematocrit 38.1 % (37-47); Hemoglobin 12.2 g/dl (12.0-15.0); Mean Corpuscular Volume 84.3 fL (81-99); Mean Platelet Vol. 9.9 fl (6.2-12.0); Monocyte# 0.31 X10^3/uL; Monocyte% 11.7 % (0-10); Neutrophil # 1.39 X10^3/uL (2.7-7.7); Neutrophil % 52.3 % (47-70); Platelet Count 86 K/mm3 (150-450); RBC Distribution Width CV 13.9 % (11.6-14.6); RBC Distribution Width SD 42.5 fl (35.1-43.9); Red Blood Count 4.52 M/mm3 (4.2-5.4); White Blood Count 2.7 K/mm3 (4.4-11.0)
[2018-08-28 12:16] LABS: POSITIVE COUNT NO; POSITIVE DIFFERENTIAL NO; POSITIVE MORPHOLOGY NO
[2018-08-28 12:49] LABS: AST(SGOT) 55 U/L (15-37); Alanine Aminotransfer ALT/SGPT 76 U/L (13-56); Albumin, Serum 3.7 g/dL (3.2-5.0); Alkaline Phosphatase 157 U/L (45-117); Anion Gap 4 (5-15); BUN 12 mg/dL (7-18); BUN/Creat Ratio 15.3 RATIO (10-20); Bilirubin, Direct 0.12 mg/dL (0.00-0.30); Calcium,Total 8.3 mg/dL (8.5-10.1); Chloride 107 mmol/L (98-107); Creatinine, Serum 0.79 mg/dL (0.55-1.02); EST Glomerular Filtration Rate 82 mL/min (>60); Est Glom Filt Rate - Afr Amer 99 mL/min (>60); Globulin 3.1 g/dL (2.2-4.2); Glucose 121 mg/dL (74-106); Phosphorus 3.2 mg/dL (2.5-4.9); Potassium 4.4 mmol/L (3.5-5.1); Protein, Total 6.8 g/dL (6.4-8.2); Sodium Level 139 mmol/L (136-145)
[2018-09-07 12:31] LABS: Absolute Lymphocyte Count 0.91 X10^3/ul (0.83-4.51); Absolute Neutrophil Count 1.2 X10^3/uL (2.0-7.7); Basophil# 0.01 X10^3/uL; Basophil% 0.4 % (0-1); Eosinophil# 0.01 X10^3/uL; Eosinophils% 0.4 % (0-5); Hematocrit 36.6 % (37-47); Hemoglobin 11.7 g/dl (12.0-15.0); Lymphocyte # 0.91 X10^3/ul (4.0); Lymphocyte % 39.2 % (19-41); Mean Corpuscular Hgb 26.8 pg (27.0-32.0); Mean Corpuscular Volume 83.8 fL (81-99); Mean Platelet Vol. 10.7 fl (6.2-12.0); Monocyte# 0.18 X10^3/uL; Monocyte% 7.8 % (0-10); Neutrophil # 1.19 X10^3/uL (2.7-7.7); Neutrophil % 51.3 % (47-70); Platelet Count 80 K/mm3 (150-450); RBC Distribution Width CV 13.9 % (11.6-14.6); RBC Distribution Width SD 41.4 fl (35.1-43.9); Red Blood Count 4.37 M/mm3 (4.2-5.4); White Blood Count 2.3 K/mm3 (4.4-11.0)
[2018-09-07 12:37] LABS: POSITIVE COUNT NO; POSITIVE DIFFERENTIAL NO; POSITIVE MORPHOLOGY NO
[2018-09-07 12:58] LABS: AST(SGOT) 51 U/L (15-37); Alanine Aminotransfer ALT/SGPT 54 U/L (13-56); Albumin, Serum 3.6 g/dL (3.2-5.0); Alkaline Phosphatase 158 U/L (45-117); Anion Gap 5 (5-15); BUN 20 mg/dL (7-18); BUN/Creat Ratio 21.3 RATIO (10-20); Bilirubin, Direct 0.15 mg/dL (0.00-0.30); Calcium,Total 9.1 mg/dL (8.5-10.1); Chloride 109 mmol/L (98-107); Creatinine, Serum 0.94 mg/dL (0.55-1.02); EST Glomerular Filtration Rate 67 mL/min (>60); Est Glom Filt Rate - Afr Amer 81 mL/min (>60); Globulin 3.2 g/dL (2.2-4.2); Glucose 116 mg/dL (74-106); Phosphorus 4.6 mg/dL (2.5-4.9); Potassium 4.6 mmol/L (3.5-5.1); Protein, Total 6.8 g/dL (6.4-8.2); Sodium Level 140 mmol/L (136-145)
[2018-09-09 11:43] LABS: Tacrolimus (FK506) 12.9 ng/mL (2.0-20.0)
== END 2018-09-13 23:59 ==
LOC: LAB.FUTURE 11:08
PROVIDERS: Family Provider Nurse Practitioner Primary Care; PCP Nurse Practitioner Primary Care
DX: Z94.4 Liver transplant status (principal); Z79.899 Other long term (current) drug therapy
CPT/HCPCS: 36415; 80048; 80076; 80197; 84100; 85025

== ENCOUNTER 2018-09-21 18:47 | Emergency (ER) | payer MEDICAID, SELFPAY ==
[2018-09-21 18:47] VITALS: BP 141/83; PULSE 86; RESP 16; TEMP 37; O2SAT 98; BMI 27.8
--- NOTE | 2018-09-21 19:22 | ED.VIS.BACK ---
History of Present Illness Chief Complaint: Back Detail of Chief Complaint: Right lower back pain, anterior right thigh pain and right ankle pain Informant: Patient Onset: Weeks, Month(s) Timing: Continuous Quality: Dull, Throbbing Location: Lumbar, Right Leg Current Severity: Moderate Maximum Severity: Severe Worsened by: improves with: - - Bearing weight Relieved by: - - Nothing. Not bearing weight diminishes the discomfort Associated Symptoms: Radiation to Right Leg - Anteriorly not along a dermatomal distribution. She also reports constant right ankle pain. She denies bowel bladder dysfunction. Denies saddle paresthesia or anesthesia. She denies quadricep weakness going up or down steps. She denies foot drop. Narrative: Patient is a middle-aged woman status post liver transplant 3 months ago. She is on multiple immune suppressive meds. She states she is permitted to take Tylenol but not NSAIDs. She denies black, maroon or blood in her stool. She denies GI symptoms. She has history of herniated disc L1 and degenerative disc disease. Patient states yesterday when she was applying pressure to the gas pedal her foot was shaking. She was experiencing pain at that time. Prior similar symptoms: Yes Recent Illness/Hospitalization: No - Status post liver transplant 3 months ago Past Medical History - Allergies and Home Meds Allergies/Adverse Reactions: Allergies diphenhydramine HCl [From Benadryl] Adverse Reaction (Verified 09/21/18 18:49) climb [place] [facility] [place] lorazepam [From Ativan] Adverse Reaction (Verified 09/21/18 18:49) Climb [place] rose SHE FEELS LIKE SHE WANTS TO CLIMB THE ROSE prednisone Adverse Reaction (Verified 09/21/18 18:49) Other prochlorperazine edisylate [From Compazine] Adverse Reaction (Verified 09/21/18 18:49) [place] prochlorperazine maleate [From Compazine] Adverse Reaction (Verified 09/21/18 18:49) climb out of my body CLIMB OUT OF MY BODY promethazine HCl [From Phenergan] Adverse Reaction (Verified 09/21/18 18:49) climb [place] rose [place] sulfamethoxazole [From Bactrim] Adverse Reaction (Verified 09/21/18 18:50) Fever and skin rash topiramate [From Topamax] Adverse Reaction (Verified 09/21/18 18:49) Other tramadol Adverse Reaction (Verified 09/21/18 18:49) climb the rose feels like going to climb rose trimethoprim [From Bactrim] Adverse Reaction (Verified 09/21/18 18:50) Fever and skin rash Primary Care Physician: Anna Meza NP-C [Primary Care Provider] - Prior records reviewed: Yes Surgical History: cholecystectomy, hysterectomy, total knee arthroplasty, - - cholecystectomy, partial hysterectomy, right shoulder replacement secondary to fall secondary to seizure, bilateral knee arthroscopic Lives: Spouse/ Significant Other Smoking Status: Never smoker Alcohol: None Drugs: None - Family History Maternal Family History: Reports: COPD Paternal Family History: Reports: Heart Disease - CHF, - - Liver disease, alcoholism Sibling Family History: Reports: Heart Disease, Stroke, - - cirrhosis Review of Systems General: Denies: Chills, Fever, Subjective, Sweats, Weight loss Cardiovascular: Denies: Chest pain, Palpitations, Heart racing Respiratory: Denies: Dyspnea, Cough, Dyspnea on exertion, Orthopnea, Paroxysmal nocturnal dyspnea Gastrointestinal: Denies: Abdominal pain, Nausea, Vomiting, Diarrhea, Melena, Hematochezia Genitourinary: Denies: Dysuria, Hematuria, Frequency Musculoskeletal: Reports: Back pain, Extremity Pain, - - Anterior right thigh, right ankle and pain from the popliteal fossa to the Achilles/heel. Denies: Myalgias, Arthralgias, Neck pain, Swelling Skin: Denies: Rash, Wounds Neurological: Denies: Headache, Weakness, Parasthesia, Numbness Endocrine: Denies: Polyuria, Polydipsia Hematologic: Denies: Easy bruising Physical Exam Vital Signs/Narrative: Vital Signs Temp Pulse Resp BP Pulse Ox 09/21/18 18:47 98.6 F 86 16 141/83 H 98 General: Well nourished, Well developed Head: Normocephalic, Atraumatic Eyes: Perrl, EOMI ENT: Moist mucous membranes, No rhinorrhea Neck: Supple, Nontender Cardiovascular: Regular rate, Regular rhythm, No murmurs Respiratory: No distress, CTA bilaterally, Chest nontender Abdomen: Soft, Nontender, Nondistended, Normal bowel sounds Back: Normal Inspection, Nontender, Paraspinal Tenderness - On the right only, Negative SLR - Left, - - Crossover test was negative.. Negative for: Spinal tenderness, Positive SLR - Right, Negative SLR - Right, Positive SLR - Left Extremeties: Nontender, No edema Skin: Normal color, No rash Neuro: Alert, Oriented, Normal Strength, Normal Sensation, Normal DTR, Normal Gait, Normal Reflexes Reflexes: Right Patellar, Right Achilles, Left Patellar, Left Achilles, - - Patella and ankle reflex are 2-3+ symmetric. There is no clonus or Babinski sign noted.. Negative for: Right Clonus, Right Babinski, Left Clonus, Left Babinski Psychological: Normal affect Diagnostic/Tx/Re-eval - Medical Decision Making Patient with right lower back pain in a nonradicular pattern with a negative straight leg test and negative crossover test furthermore patella and ankle reflex are symmetric with no clonus or Babinski sign. There is no abnormal sensation. Pain is reproducible and exacerbated with movement. In my professional opinion patient's back pain is not because of an L1 herniated disc. At this point one would conclude this is musculoskeletal. Since patient is not permitted to take NSAIDs she was given a 3-day course of Nowata. Radiologic imaging is not indicated nor was it obtained. ED Disposition - Plan for ED Patient: Disposition: Home or Assisted Living Diagnosis: Right-sided low back pain without sciatica Instructions: ED Sprain Strain Lumbar Prescriptions: Hydrocodone Bitart/Apap 5-325 [Nowata 5MG-325MG] 1 tablet PO Q6H PRN PRN 3 Days #10 tablet PRN Reason: Pain Referrals: Anna Meza, ANIMAL KEEPER-C [Primary Care Provider] - 3-5 Days if not improving
[2018-09-21] MEDS: HYDROcodone Bitartrate/Apap 5/325 Tablet PO (19:47)
[2018-09-21 19:49] VITALS: BP 130/81; PULSE 75; RESP 16; O2SAT 97
== END 2018-09-21 19:50 | disposition home or self-care (01) ==
PROVIDERS: Emergency Provider Emergency Medicine; Family Provider Nurse Practitioner Primary Care; PCP Nurse Practitioner Primary Care
DX: M54.5 Low back pain (principal); Z94.4 Liver transplant status; Z79.899 Other long term (current) drug therapy; M25.571 Pain in right ankle and joints of right foot; M79.651 Pain in right thigh
CPT/HCPCS: 36415; 80048; 80076; 80197; 84100; 85025; 99283

== ENCOUNTER 2018-10-12 11:19 | Outpatient (RCR) | payer MEDICAID, SELFPAY ==
[2018-09-21 11:46] LABS: Absolute Lymphocyte Count 0.72 X10^3/ul (0.83-4.51); Absolute Neutrophil Count 1.4 X10^3/uL (2.0-7.7); Basophil# 0.01 X10^3/uL; Basophil% 0.4 % (0-1); Eosinophil# 0.02 X10^3/uL; Eosinophils% 0.8 % (0-5); Hematocrit 33.4 % (37-47); Hemoglobin 11.1 g/dl (12.0-15.0); Lymphocyte # 0.72 X10^3/ul (4.0); Lymphocyte % 28.5 % (19-41); Mean Corp Hgb Conc 33.2 g/gl (32-36); Mean Corpuscular Hgb 26.9 pg (27.0-32.0); Mean Corpuscular Volume 80.9 fL (81-99); Monocyte# 0.35 X10^3/uL; Monocyte% 13.8 % (0-10); Neutrophil # 1.42 X10^3/uL (2.7-7.7); Neutrophil % 56.1 % (47-70); Platelet Count 59 K/mm3 (150-450); RBC Distribution Width CV 14.1 % (11.6-14.6); RBC Distribution Width SD 41.3 fl (35.1-43.9); Red Blood Count 4.13 M/mm3 (4.2-5.4); White Blood Count 2.5 K/mm3 (4.4-11.0)
[2018-09-21 11:54] LABS: POSITIVE COUNT NO; POSITIVE DIFFERENTIAL NO; POSITIVE MORPHOLOGY NO
[2018-09-21 12:11] LABS: AST(SGOT) 53 U/L (15-37); Alanine Aminotransfer ALT/SGPT 41 U/L (13-56); Albumin, Serum 3.6 g/dL (3.2-5.0); Alkaline Phosphatase 140 U/L (45-117); Anion Gap 4 (5-15); BUN 15 mg/dL (7-18); BUN/Creat Ratio 15.4 RATIO (10-20); Bilirubin, Direct 0.13 mg/dL (0.00-0.30); Calcium,Total 8.2 mg/dL (8.5-10.1); Chloride 109 mmol/L (98-107); Creatinine, Serum 0.98 mg/dL (0.55-1.02); EST Glomerular Filtration Rate 64 mL/min (>60); Est Glom Filt Rate - Afr Amer 77 mL/min (>60); Globulin 3.1 g/dL (2.2-4.2); Glucose 124 mg/dL (74-106); Phosphorus 3.6 mg/dL (2.5-4.9); Potassium 4.4 mmol/L (3.5-5.1); Protein, Total 6.7 g/dL (6.4-8.2); Sodium Level 138 mmol/L (136-145)
[2018-09-24 15:50] LABS: Tacrolimus (FK506) 15.9 ng/mL (2.0-20.0)
[2018-10-01 09:16] LABS: Absolute Lymphocyte Count 0.82 X10^3/ul (0.83-4.51); Absolute Neutrophil Count 1.7 X10^3/uL (2.0-7.7); Basophil# 0.01 X10^3/uL; Basophil% 0.3 % (0-1); Eosinophil# 0.04 X10^3/uL; Eosinophils% 1.4 % (0-5); Hematocrit 30.8 % (37-47); Hemoglobin 10.4 g/dl (12.0-15.0); Lymphocyte # 0.82 X10^3/ul (4.0); Lymphocyte % 27.9 % (19-41); Mean Corp Hgb Conc 33.8 g/gl (32-36); Mean Corpuscular Hgb 27.1 pg (27.0-32.0); Mean Corpuscular Volume 80.2 fL (81-99); Mean Platelet Vol. 10.7 fl (6.2-12.0); Monocyte# 0.35 X10^3/uL; Monocyte% 11.9 % (0-10); Neutrophil # 1.71 X10^3/uL (2.7-7.7); Neutrophil % 58.2 % (47-70); POSITIVE COUNT NO; POSITIVE DIFFERENTIAL NO; POSITIVE MORPHOLOGY NO; Platelet Count 63 K/mm3 (150-450); RBC Distribution Width CV 14.7 % (11.6-14.6); RBC Distribution Width SD 40.9 fl (35.1-43.9); Red Blood Count 3.84 M/mm3 (4.2-5.4); White Blood Count 2.9 K/mm3 (4.4-11.0)
[2018-10-01 09:50] LABS: AST(SGOT) 40 U/L (15-37); Alanine Aminotransfer ALT/SGPT 30 U/L (13-56); Albumin, Serum 3.3 g/dL (3.2-5.0); Alkaline Phosphatase 142 U/L (45-117); Anion Gap 6 (5-15); BUN 11 mg/dL (7-18); BUN/Creat Ratio 11.9 RATIO (10-20); Bilirubin, Direct 0.11 mg/dL (0.00-0.30); Chloride 107 mmol/L (98-107); Creatinine, Serum 0.93 mg/dL (0.55-1.02); EST Glomerular Filtration Rate 68 mL/min (>60); Est Glom Filt Rate - Afr Amer 82 mL/min (>60); Globulin 3.1 g/dL (2.2-4.2); Glucose 206 mg/dL (74-106); Phosphorus 5.3 mg/dL (2.5-4.9); Potassium 4.1 mmol/L (3.5-5.1); Protein, Total 6.4 g/dL (6.4-8.2); Sodium Level 140 mmol/L (136-145)
[2018-10-05 11:20] LABS: Tacrolimus (FK506) 14.1 ng/mL (2.0-20.0)
[2018-10-12 12:09] LABS: Absolute Neutrophil Count 2.5 X10^3/uL (2.0-7.7); Basophil# 0.02 X10^3/uL; Basophil% 0.5 % (0-1); Eosinophil# 0.04 X10^3/uL; Hematocrit 34.2 % (37-47); Hemoglobin 11.6 g/dl (12.0-15.0); Lymphocyte % 27.3 % (19-41); Mean Corp Hgb Conc 33.9 g/gl (32-36); Mean Corpuscular Hgb 27.2 pg (27.0-32.0); Mean Corpuscular Volume 80.1 fL (81-99); Monocyte# 0.38 X10^3/uL; Monocyte% 9.4 % (0-10); Neutrophil # 2.47 X10^3/uL (2.7-7.7); Neutrophil % 61.3 % (47-70); Platelet Count 84 K/mm3 (150-450); RBC Distribution Width SD 41.9 fl (35.1-43.9); Red Blood Count 4.27 M/mm3 (4.2-5.4)
[2018-10-12 12:12] LABS: POSITIVE COUNT NO; POSITIVE DIFFERENTIAL NO; POSITIVE MORPHOLOGY NO
[2018-10-12 13:06] LABS: AST(SGOT) 39 U/L (15-37); Alanine Aminotransfer ALT/SGPT 30 U/L (13-56); Albumin, Serum 3.7 g/dL (3.2-5.0); Alkaline Phosphatase 141 U/L (45-117); Anion Gap 8 (5-15); BUN 15 mg/dL (7-18); BUN/Creat Ratio 13.9 RATIO (10-20); Bilirubin, Direct 0.14 mg/dL (0.00-0.30); Chloride 104 mmol/L (98-107); Creatinine, Serum 1.08 mg/dL (0.55-1.02); EST Glomerular Filtration Rate 57 mL/min (>60); Est Glom Filt Rate - Afr Amer 69 mL/min (>60); Globulin 3.6 g/dL (2.2-4.2); Glucose 136 mg/dL (74-106); Phosphorus 4.3 mg/dL (2.5-4.9); Potassium 4.8 mmol/L (3.5-5.1); Protein, Total 7.3 g/dL (6.4-8.2); Sodium Level 137 mmol/L (136-145)
[2018-10-14 15:03] LABS: Tacrolimus (FK506) 14.4 ng/mL (2.0-20.0)
== END 2018-10-13 23:59 ==
LOC: LAB.FUTURE 11:19
PROVIDERS: Family Provider Nurse Practitioner Primary Care; PCP Nurse Practitioner Primary Care
DX: Z94.4 Liver transplant status (principal); Z79.899 Other long term (current) drug therapy
CPT/HCPCS: 36415; 80048; 80076; 80197; 84100; 85025

== ENCOUNTER 2018-11-05 09:21 | Outpatient (RCR) | payer MEDICAID, SELFPAY ==
[2018-11-05 10:36] LABS: Absolute Lymphocyte Count 1.23 X10^3/ul (0.83-4.51); Absolute Neutrophil Count 1.3 X10^3/uL (2.0-7.7); Basophil# 0.01 X10^3/uL; Basophil% 0.3 % (0-1); Eosinophil# 0.03 X10^3/uL; Hematocrit 29.8 % (37-47); Hemoglobin 10.2 g/dl (12.0-15.0); Lymphocyte # 1.23 X10^3/ul (4.0); Lymphocyte % 41.8 % (19-41); Mean Corp Hgb Conc 34.2 g/gl (32-36); Mean Corpuscular Hgb 27.9 pg (27.0-32.0); Mean Corpuscular Volume 81.6 fL (81-99); Mean Platelet Vol. 9.7 fl (6.2-12.0); Monocyte# 0.33 X10^3/uL; Monocyte% 11.2 % (0-10); Neutrophil # 1.34 X10^3/uL (2.7-7.7); Neutrophil % 45.7 % (47-70); Platelet Count 111 K/mm3 (150-450); RBC Distribution Width CV 15.7 % (11.6-14.6); RBC Distribution Width SD 46.7 fl (35.1-43.9); Red Blood Count 3.65 M/mm3 (4.2-5.4); White Blood Count 2.9 K/mm3 (4.4-11.0)
[2018-11-05 10:39] LABS: POSITIVE COUNT NO; POSITIVE DIFFERENTIAL NO; POSITIVE MORPHOLOGY NO
[2018-11-05 11:05] LABS: Vitamin B12 1308 pg/mL (211-911)
[2018-11-05 11:06] LABS: Anion Gap 4 (5-15); BUN 11 mg/dL (7-18); BUN/Creat Ratio 13.5 RATIO (10-20); Calcium,Total 8.7 mg/dL (8.5-10.1); Chloride 109 mmol/L (98-107); Creatinine, Serum 0.82 mg/dL (0.55-1.02); EST Glomerular Filtration Rate 78 mL/min (>60); Est Glom Filt Rate - Afr Amer 95 mL/min (>60); Glucose 129 mg/dL (74-106); Phosphorus 4.9 mg/dL (2.5-4.9); Potassium 3.8 mmol/L (3.5-5.1); Sodium Level 140 mmol/L (136-145); Thyroid Stim Hormone (TSH) 2.75 uIU/mL (0.358-3.74)
[2018-11-08 08:19] LABS: Tacrolimus (FK506) 6.3 ng/mL (2.0-20.0)
[2018-11-10 11:27] LABS: AST(SGOT) 26 U/L (15-37); Alanine Aminotransfer ALT/SGPT 22 U/L (13-56); Albumin, Serum 3.6 g/dL (3.2-5.0); Alkaline Phosphatase 144 U/L (45-117); Bilirubin, Direct 0.17 mg/dL (0.00-0.30); Globulin 2.8 g/dL (2.2-4.2); Protein, Total 6.4 g/dL (6.4-8.2)
== END 2018-11-13 23:59 ==
LOC: LAB.FUTURE 09:21
PROVIDERS: Family Provider Nurse Practitioner Primary Care; PCP Nurse Practitioner Primary Care
DX: Z94.4 Liver transplant status (principal); D89.9 Disorder involving the immune mechanism, unspecified; E07.9 Disorder of thyroid, unspecified
CPT/HCPCS: 36415; 80048; 80076; 80197; 82607; 84100; 84443; 85025

== ENCOUNTER 2018-12-10 08:19 | Outpatient (RCR) | payer MEDICARE, MEDICAID, SELFPAY ==
[2018-11-19 08:52] LABS: Absolute Lymphocyte Count 0.93 X10^3/ul (0.83-4.51); Absolute Neutrophil Count 2.3 X10^3/uL (2.0-7.7); Basophil# 0.01 X10^3/uL; Basophil% 0.3 % (0-1); Eosinophil# 0.03 X10^3/uL; Eosinophils% 0.8 % (0-5); Hemoglobin 10.2 g/dl (12.0-15.0); Lymphocyte # 0.93 X10^3/ul (4.0); Mean Corpuscular Hgb 28.1 pg (27.0-32.0); Mean Corpuscular Volume 82.6 fL (81-99); Mean Platelet Vol. 9.8 fl (6.2-12.0); Monocyte% 10.8 % (0-10); Neutrophil # 2.34 X10^3/uL (2.7-7.7); Neutrophil % 62.8 % (47-70); Platelet Count 86 K/mm3 (150-450); RBC Distribution Width CV 14.8 % (11.6-14.6); RBC Distribution Width SD 44.6 fl (35.1-43.9); Red Blood Count 3.63 M/mm3 (4.2-5.4); White Blood Count 3.7 K/mm3 (4.4-11.0)
[2018-11-19 08:58] LABS: POSITIVE COUNT NO; POSITIVE DIFFERENTIAL NO; POSITIVE MORPHOLOGY NO
[2018-11-19 09:22] LABS: ALB/GLOB Ratio 1.2 RATIO (0.9-2.4); AST(SGOT) 17 U/L (15-37); Alanine Aminotransfer ALT/SGPT 17 U/L (13-56); Albumin, Serum 3.6 g/dL (3.2-5.0); Alkaline Phosphatase 118 U/L (45-117); Anion Gap 7 (5-15); BUN 16 mg/dL (7-18); BUN/Creat Ratio 16.1 RATIO (10-20); Bilirubin, Direct 0.13 mg/dL (0.00-0.30); Calcium,Total 8.2 mg/dL (8.5-10.1); Chloride 106 mmol/L (98-107); Creatinine, Serum 0.99 mg/dL (0.55-1.02); EST Glomerular Filtration Rate 63 mL/min (>60); Est Glom Filt Rate - Afr Amer 76 mL/min (>60); Globulin 3.1 g/dL (2.2-4.2); Glucose 212 mg/dL (74-106); Protein, Total 6.7 g/dL (6.4-8.2); Sodium Level 138 mmol/L (136-145)
[2018-11-19 09:38] LABS: Carbamazepine (Tegretol) 8.5 ug/mL (4.0-12.0)
[2018-11-23 12:11] LABS: Tacrolimus (FK506) 2.8 ng/mL (2.0-20.0)
[2018-12-10 08:45] LABS: Absolute Lymphocyte Count 0.85 X10^3/ul (0.83-4.51); Absolute Neutrophil Count 1.1 X10^3/uL (2.0-7.7); Basophil# 0.01 X10^3/uL; Basophil% 0.4 % (0-1); Eosinophil# 0.02 X10^3/uL; Eosinophils% 0.9 % (0-5); Hematocrit 32.4 % (37-47); Hemoglobin 10.8 g/dl (12.0-15.0); Lymphocyte # 0.85 X10^3/ul (4.0); Lymphocyte % 37.6 % (19-41); Mean Corp Hgb Conc 33.3 g/gl (32-36); Mean Corpuscular Hgb 28.1 pg (27.0-32.0); Mean Corpuscular Volume 84.4 fL (81-99); Mean Platelet Vol. 9.8 fl (6.2-12.0); Monocyte# 0.27 X10^3/uL; Monocyte% 11.9 % (0-10); Neutrophil % 48.8 % (47-70); Platelet Count 57 K/mm3 (150-450); RBC Distribution Width SD 43.1 fl (35.1-43.9); Red Blood Count 3.84 M/mm3 (4.2-5.4); White Blood Count 2.3 K/mm3 (4.4-11.0)
[2018-12-10 08:49] LABS: POSITIVE COUNT NO; POSITIVE DIFFERENTIAL NO; POSITIVE MORPHOLOGY NO
[2018-12-10 09:03] LABS: ALB/GLOB Ratio 1.2 RATIO (0.9-2.4); AST(SGOT) 24 U/L (15-37); Alanine Aminotransfer ALT/SGPT 18 U/L (13-56); Albumin, Serum 3.5 g/dL (3.2-5.0); Alkaline Phosphatase 122 U/L (45-117); Anion Gap -1 (5-15); BUN 11 mg/dL (7-18); BUN/Creat Ratio 12.9 RATIO (10-20); Bilirubin, Direct 0.13 mg/dL (0.00-0.30); Calcium,Total 7.9 mg/dL (8.5-10.1); Chloride 111 mmol/L (98-107); Creatinine, Serum 0.86 mg/dL (0.55-1.02); EST Glomerular Filtration Rate 74 mL/min (>60); Est Glom Filt Rate - Afr Amer 90 mL/min (>60); Glucose 141 mg/dL (74-106); Protein, Total 6.5 g/dL (6.4-8.2); Sodium Level 140 mmol/L (136-145)
[2018-12-14 11:18] LABS: Tacrolimus (FK506) 7.7 ng/mL (2.0-20.0)
== END 2018-12-13 12:00 | disposition home or self-care (01) ==
LOC: LAB 08:19
PROVIDERS: Family Provider Nurse Practitioner Primary Care; PCP Nurse Practitioner Primary Care
DX: Z94.4 Liver transplant status (principal); D89.9 Disorder involving the immune mechanism, unspecified
CPT/HCPCS: 36415; 80053; 80156; 80197; 82140; 82248; 84100; 85025

== ENCOUNTER 2018-12-25 09:20 | Emergency (ER) | payer MEDICARE, MEDICAID, SELFPAY ==
[2018-12-25] VITALS (12 sets, daily range): BP systolic 111–151; BP diastolic 66–101; PULSE 105–143; RESP 16–31; TEMP 36.7–38.7; O2SAT 94–97; BMI 27.4
--- NOTE | 2018-12-25 09:46 | EKG12_ITS ---
Test Reason : Blood Pressure : / mmHG Vent. Rate : 130 BPM Atrial Rate : 130 BPM P-R Int : 144 ms QRS Dur : 078 ms QT Int : 302 ms P-R-T Axes : 018 -32 021 degrees QTc Int : 444 ms Sinus tachycardia Left axis deviation Inferior infarct , age undetermined Anterolateral infarct , age undetermined Abnormal ECG Confirmed by MOE BROOKS, SHLOMO ([id number]), editorial assistant THUAN WILLARD ([id number]) on 12/29/2018 2:16:09 PM Referred By: SAM Confirmed By:SHLOMO ROSA MD
--- NOTE | 2018-12-25 09:47 | CT_ITS ---
STUDY: CT ABDOMEN AND PELVIS WITH CONTRAST REASON FOR EXAM: Female, 53 years old. Right lower abdominal pain RADIATION DOSAGE (If Supplied By Facility): CTDIvol = ( 12.68 ) mGy, DLP = ( 897.04 ) mGycm TECHNIQUE: Transaxial images were obtained from the dome of the diaphragm to the symphysis pubis without oral contrast. 100 IV/Oral Isovue 300 was administered. Sagittal and coronal images were reconstructed. Individualized dose optimization techniques were used for this CT. COMPARISON: 03/24/2018 FINDINGS: Interstitial edema noted in the lung bases. The visualized portions of the heart are within normal limits. Normal liver. There are surgical clips in the gallbladder fossa consistent with a prior cholecystectomy. Stable splenomegaly. Normal pancreas. Normal bilateral adrenal glands. Normal right kidney. Normal left kidney. Incidental note again made of a retroaortic left renal vein There is a small hiatal hernia. Normal small intestine. There is new suspicious thickening of the cecum with caliber change within the lumen of the colon. Findings are suspicious for neoplastic process. There is a minimal amount of pericolonic inflammatory stranding. No perforation or abscess noted. This is best seen on coronal recon image 60. Additionally, there are scattered sigmoid diverticula without acute diverticulitis. There is non-visualization of the appendix. Normal abdominal aorta. Normal inferior vena cava. Normal retroperitoneum. Normal urinary bladder. Uterus is absent, there is a stable 2.3 cm cystic structure in the left hemipelvis, likely ovary Normal abdominal wall. There are diffuse degenerative changes of the visualized lumbar spine, and pelvis with stable likely chronic compression fractures affecting the superior endplates of L1 and L2. CT/Abdomen/Pelvis WITH Contrast IMPRESSION: New suspicious thickening of the cecum with caliber change. Neoplasm is suspected and needs to be excluded. No perforation or abscess noted there is pericolonic inflammation Scattered sigmoid diverticulosis Stable splenomegaly. Degenerative bony changes Previous cholecystectomy Electronically Signed: Luis Eduardo Torres MD at 12:12 EDT , Service support ,
--- NOTE | 2018-12-25 10:07 | ED.VISSUMM ---
- ER Visit Summary Date of Service: 12/25/18 Chief Complaint: Fever and abdominal pain History of Present Illness: The patient is a 53 F who is status post liver transplant at [facility]. She states that yesterday she developed a fever. Today her temperature was up to 102. She notes she had Tylenol 1000 mg at 080 0 hours. She notes some nausea vomiting yesterday. Today she woke with right lower quadrant abdominal pain. She has generalized myalgias chills sweats. History of Jewell and esophageal varices. Physical Examination: Blood pressure 130/94 heart rate of 143 respirations are 16 pulse ox 96% Gen: Well-nourished well-developed Head: Normocephalic atraumatic Eyes: Perrl EOMI ENT: TMs clear no rhinorrhea dry mucous membranes Neck: Supple no lymphadenopathy no JVD nontender CVS: Regular rate tachycardia rhythm no murmurs normal S1-S2 Respiratory: No distress clear to auscultation bilaterally chest nontender Abdomen: Soft there are well-healed surgical incisions on the abdomen. She has tenderness guarding or rebound in the right lower quadrant. She has pain with palpation on the left side of her abdomen that radiates to the right. Back: Nontender Extremity: Nontender no edema Skin: Normal color no rash warm to the touch Neuro: alert orientated ?3 CN II-XII intact normal strength sensation Psych: Patient is tearful at times Test Results: Chest x-ray is clear. White count is 3.6 with a hemoglobin of 11.7 and thrombocytopenia at 58. Glucose 213 BUN is 7 creatinine 0.97. Liver enzymes direct bilirubin 0.48 alk phos 130. Lactic acid is normal. Coags with an INR 1.2 and a PTT of 30.6. CT the abdomen pelvis with oral and IV contrast was obtained which demonstrates circumferential thickening of the cecum. There is narrowing of the lumen. There is pericolonic inflammatory changes. The appendix is not visualized. Differential includes a colitis but neoplasm cannot be excluded. Appendicitis is not fully excluded either. Emergency Department Course and Treatment: Patient received IV fluids morphine and Zofran. I spoke with civil preparedness coordinator [facility] I also spoke with our on-call surgeon. Given that her liver transplant is less than a year old it was felt that the patient should be treated at her transplant center. Patient received a dose of Zosyn. While awaiting transfer the patient spiked a fever. We administered Tylenol. She continued to have pain despite several doses of morphine gave her Toradol. Impression: 1. Acute colitis of the cecum 2. Immunosuppressed patient This note was generated with [facility] dictation software. It may contain incorrect words, spelling, and punctuation that were not noted in review of the chart prior to signing ED Disposition - Plan for ED Patient: Referrals: Anna Meza, WHEEL BUFFER-C [Primary Care Provider] -
--- NOTE | 2018-12-25 10:11 | RAD_ITS ---
STUDY: X-RAY CHEST REASON FOR EXAM: Female, 53 years old. Fever. History of a liver transplant. TECHNIQUE: Single AP portable view of the chest. COMPARISON: Comparison is made with prior study dated February 08, 2018. FINDINGS: The lungs are clear and expanded. There is no demonstrated pleural abnormality. Normal size heart. Normal mediastinum and erin. Normal visualized pulmonary arteries. Normal visualized aortic arch and descending thoracic aorta. There are diffuse degenerative changes of the visualized thoracic spine. Normal visualized ribs, clavicles, and shoulders. Surgical clips are seen in the right upper quadrant. RAD/Chest 1 View (Portable) IMPRESSION: The lungs are clear. Electronically Signed: Terrance Kim, at 10:26 EDT , Service support ,
[2018-12-25] MEDS: 0.9% Normal Saline 1,000 ML 999 ML IV (10:15)
[2018-12-25] MEDS: Morphine 4 MG/ML Syringe IV ×2 (10:15→12:09)
[2018-12-25] MEDS: Ondansetron 4 MG/2 ML Vial IV (10:15)
[2018-12-25 10:18] LABS: Hematocrit 34.4 % (37-47); Hemoglobin 11.7 g/dl (12.0-15.0); Mean Corpuscular Hgb 27.5 pg (27.0-32.0); Mean Corpuscular Volume 80.8 fL (81-99); Mean Platelet Vol. 10.4 fl (6.2-12.0); Platelet Count 58 K/mm3 (150-450); RBC Distribution Width CV 13.6 % (11.6-14.6); RBC Distribution Width SD 38.6 fl (35.1-43.9); Red Blood Count 4.26 M/mm3 (4.2-5.4); White Blood Count 3.6 K/mm3 (4.4-11.0)
[2018-12-25 10:19] LABS: Differential Indicated MANUAL DIFF; POSITIVE COUNT YES; POSITIVE DIFFERENTIAL YES; POSITIVE MORPHOLOGY YES
[2018-12-25 10:23] LABS: International Normalized Ratio 1.2
[2018-12-25 10:24] LABS: Partial Thromboplast Time 30.6 Seconds (24.1-36.2)
[2018-12-25 10:26] LABS: AST(SGOT) 28 U/L (15-37); Alanine Aminotransfer ALT/SGPT 17 U/L (13-56); Albumin, Serum 3.5 g/dL (3.2-5.0); Alkaline Phosphatase 130 U/L (45-117); Bilirubin, Direct 0.48 mg/dL (0.00-0.30); Globulin 3.3 g/dL (2.2-4.2); Lipase 37 U/L (73-393); Protein, Total 6.8 g/dL (6.4-8.2)
[2018-12-25 10:46] LABS: Lactic Acid 1.6 mmol/L (0.4-2.0)
[2018-12-25 10:54] LABS: Lymphocyte 9 % (19-41); Metamyelocyte 6 % (0-1); Monocyte 3 % (0-10); Neutrophil-Band 5 % (0-5); Neutrophil-Segmented 77 % (47-70); Platelet Estimate MKD DEC (ADEQ); Total Cells Counted 100 (MANUAL DIFF)
[2018-12-25 10:55] LABS: Absolute Lymphocyte Count 0.32 X10^3/ul (0.83-4.51); Absolute Neutrophil Count 2.9 X10^3/uL (2.0-7.7); Lymphocyte # 0.32 X10^3/ul (4.0); Red Cell Morphology NORM C+C NORMAL (NORM C&C)
[2018-12-25 10:57] LABS: Anion Gap 8 (5-15); BUN 7 mg/dL (7-18); BUN/Creat Ratio 7.2 RATIO (10-20); Calcium,Total 8.6 mg/dL (8.5-10.1); Chloride 105 mmol/L (98-107); Creatinine, Serum 0.97 mg/dL (0.55-1.02); EST Glomerular Filtration Rate 64 mL/min (>60); Est Glom Filt Rate - Afr Amer 78 mL/min (>60); Estimated Creatinine Clearance 59.25 ml/min; Glucose 213 mg/dL (74-106); Potassium 4.1 mmol/L (3.5-5.1); Sodium Level 136 mmol/L (136-145)
[2018-12-25] MEDS: 0.9% Normal Saline 1,000 ML 150 ML IV ×2 (11:22→16:37)
[2018-12-25 11:26] LABS: Bacteria 0 SEEN /hpf (None Seen); Mucous, Urine 0 SEEN /hpf (<or=2+); Red Blood Cells-Urine 0 SEEN /hpf (0-5); White Blood Cells 0 SEEN /hpf (0-5)
[2018-12-25 11:27] LABS: Color, Urine Yellow (Yellow); Glucose, Dipstick Normal (Normal); Ketone-Dipstick Negative (Negative); Leukocyte Esterase-Dipstick Negative /ul (Negative); Nitrite-Dipstick Negative (Negative); Occult Blood-Urine Negative /ul (Negative); Protein-Dipstick Negative (Negative); Specific Gravity, Urine 1.005 (1.002-1.030); Urine Bilirubin Dipstick Negative (Negative); Urine Clarity Sl. Cloudy (Clear); Urine Urobilinogen Normal (Normal); Urine pH 6.5 (5.0 - 8.0)
[2018-12-25 11:43] LABS: Squamous Epithelial Cells - UA 0-5 SEEN /hpf (5-10)
[2018-12-25] MEDS: Morphine 2 MG/ML Syringe IV (14:17)
[2018-12-25] MEDS: Acetaminophen 500 MG Tablet 1000 MG PO (15:58)
[2018-12-25] MEDS: Ketorolac 30 MG/ML Syringe IV (15:58)
[2018-12-28 14:29] LABS: Pathologist Review Reviewed
--- NOTE | 2018-12-30 00:20 | ED.RN ---
ATTEMPTED TO CALL LAB RESULTS TO [facility]
--- NOTE | 2018-12-31 02:06 | ED.RN ---
[facility] contacted and made aware of patients blood culture results at this time
== END 2018-12-25 20:04 | disposition home or self-care (01) ==
LOC: ED 09:46
PROVIDERS: Emergency Provider Emergency Medicine; Family Provider Nurse Practitioner Primary Care; PCP Nurse Practitioner Primary Care
DX: K52.9 Noninfective gastroenteritis and colitis, unspecified (principal); R51 Headache; J34.89 Other specified disorders of nose and nasal sinuses; K75.81 Nonalcoholic steatohepatitis (NASH); I85.00 Esophageal varices without bleeding; D69.6 Thrombocytopenia, unspecified; Z94.4 Liver transplant status; Z79.899 Other long term (current) drug therapy
CPT/HCPCS: 36415; 71045; 74177; 80048; 80076; 81001; 83605; 83690; 85025; 85610; 85730; 87040; 87077; 87086; 87088; 87186; 93005; 96361; 96365; 96366; 96374; 96375; 96376; 99285; J7030; Q9967; A4216; J2405

== ENCOUNTER 2019-01-05 11:59 | Outpatient (RCR) | payer MEDICARE, MEDICAID, SELFPAY ==
[2018-12-25 09:22] VITALS: BMI 27.4
[2019-01-05 12:45] LABS: Absolute Lymphocyte Count 0.88 X10^3/uL (0.83-4.51); Basophil# 0.01 X10^3/uL; Basophil% 0.4 % (0-1); Eosinophil# 0.02 X10^3/uL; Eosinophils% 0.8 % (0-5); Hematocrit 32.6 % (37-47); Hemoglobin 10.6 g/dL (12.0-15.0); Lymphocyte # 0.88 X10^3/ul (4.0); Lymphocyte % 33.7 % (19-41); Mean Corp Hgb Conc 32.5 g/dL (32-36); Mean Corpuscular Hgb 27.7 pg (27.0-32.0); Mean Corpuscular Volume 85.3 fL (81-99); Mean Platelet Vol. 11.9 fl (6.2-12.0); Monocyte% 7.7 % (0-10); NRBC Flagged by Analyzer 0 % (0-5); Neutrophil # 1.39 X10^3/uL (2.7-7.7); Neutrophil % 53.2 % (47-70); POSITIVE MORPHOLOGY YES; Platelet Count 75 K/mm3 (150-450); RBC Distribution Width CV 13.5 % (11.6-14.6); RBC Distribution Width SD 41.8 fl (35.1-43.9); Red Blood Count 3.82 M/mm3 (4.2-5.4); White Blood Count 2.6 K/mm3 (4.4-11.0)
[2019-01-05 12:47] LABS: Differential Indicated SCAN CRITERIA MET
[2019-01-05 13:04] LABS: AST(SGOT) 25 U/L (15-37); Alanine Aminotransfer ALT/SGPT 13 U/L (13-56); Albumin, Serum 3.2 g/dL (3.2-5.0); Alkaline Phosphatase 104 U/L (45-117); Anion Gap 9 (5-15); BUN 6 mg/dL (7-18); BUN/Creat Ratio 8.5 RATIO (10-20); Bilirubin, Direct 0.11 mg/dL (0.00-0.30); Calcium,Total 8.6 mg/dL (8.5-10.1); Chloride 108 mmol/L (98-107); Creatinine, Serum 0.71 mg/dL (0.55-1.02); EST Glomerular Filtration Rate 92 mL/min (>60); Est Glom Filt Rate - Afr Amer 111 mL/min (>60); Globulin 3.4 g/dL (2.2-4.2); Glucose 169 mg/dL (74-106); Phosphorus 2.8 mg/dL (2.5-4.9); Protein, Total 6.6 g/dL (6.4-8.2); Sodium Level 143 mmol/L (136-145)
[2019-01-05 13:47] LABS: Platelet Morphology LARGE; Red Cell Morphology NORM C+C NORMAL (NORM C&C)
[2019-01-05 13:49] LABS: Atypical Lymphocyte RARE %; Platelet Estimate SLT DEC (ADEQ)
[2019-01-06 09:44] LABS: Pathologist Review Reviewed
[2019-01-08 11:10] LABS: Tacrolimus (FK506) 3.4 ng/mL (2.0-20.0)
== END 2019-01-13 17:26 | disposition home or self-care (01) ==
LOC: LAB 11:59
PROVIDERS: Family Provider Nurse Practitioner Primary Care; PCP Nurse Practitioner Primary Care
DX: D89.9 Disorder involving the immune mechanism, unspecified (principal); Z94.4 Liver transplant status
CPT/HCPCS: 36415; 80048; 80076; 80197; 84100; 85025

== ENCOUNTER 2019-01-08 11:28 | Emergency (ER) | payer MEDICARE, SELFPAY ==
[2018-12-25 09:22] VITALS: BMI 27.4
[2019-01-08 11:29] VITALS: BP 107/65; PULSE 89; RESP 17; TEMP 36.7; O2SAT 96; BMI 28.0
--- NOTE | 2019-01-08 12:47 | CT_ITS ---
STUDY: CT ABDOMEN AND PELVIS WITHOUT CONTRAST REASON FOR EXAM: Female, 53 years old. Abdominal pain after a fall RADIATION DOSAGE (If Supplied By Facility): CTDIvol = ( 7.05 ) mGy, DLP = ( 348.04 ) mGycm TECHNIQUE: Transaxial images were obtained from the dome of the diaphragm to the symphysis pubis without oral contrast, and without intravenous contrast. Sagittal and coronal images were reconstructed. Individualized dose optimization techniques were used for this CT. COMPARISON: 12/25/2018 FINDINGS: The visualized lung bases are unremarkable. The visualized portions of the heart are within normal limits. Normal liver. There are surgical clips in the gallbladder fossa consistent with a prior cholecystectomy. Stable splenomegaly Normal pancreas. Normal bilateral adrenal glands. Normal right kidney. Normal left kidney. Incidental note again made of a retroaortic left renal vein. There is a small hiatal hernia. Normal small intestine. Retained stool noted throughout the colon. Previously noted cecal thickening with pericecal inflammation has resolved. Likely represented a focal colitis. There is non-visualization of the appendix. Normal abdominal aorta. Normal inferior vena cava. Normal retroperitoneum. Normal urinary bladder. Stable 2.3 cm cystic structure in the left hemipelvis. Normal abdominal wall. There are diffuse degenerative changes of the visualized lumbar spine, with stable compression fractures at L1 and L2. Degenerative changes in the pelvis. CT/Abdomen/Pelvis without Cont IMPRESSION: No suspicious solid organ abnormality No CT evidence of acute fracture, chronic compression fractures noted at L1 and L2 Retained stool in the colon, previously noted cecal thickening and pericecal inflammation have resolved, this likely represented a focal colitis. Splenomegaly Electronically Signed: Luis Eduardo Torres MD at 14:26 EDT , Service support ,
--- NOTE | 2019-01-08 12:47 | RAD_ITS ---
STUDY: X-RAY - THORACIC SPINE REASON FOR EXAM: Female, 53 years old. Pain TECHNIQUE: 2 view(s) of the thoracic spine were obtained. COMPARISON: None. FINDINGS: Normal kyphosis of the thoracic spine. There is no substantial scoliosis. Normal thoracic vertebrae and endplates. Mild disc space narrowing. The soft tissue structures are unremarkable. RAD/Thoracic Spine 2 Views IMPRESSION: Degenerative changes, no acute findings Electronically Signed: Luis Eduardo Torres MD at 14:20 EDT , Service support ,
--- NOTE | 2019-01-08 12:47 | RAD_ITS ---
STUDY: X-RAY CHEST REASON FOR EXAM: Female, 53 years old. Pain after a fall TECHNIQUE: Single AP portable view of the chest. COMPARISON: 12/25/2018 FINDINGS: The lungs are clear and expanded. There is no demonstrated pleural abnormality. Normal size heart. Normal mediastinum and erin. Normal visualized pulmonary arteries. Normal visualized aortic arch and descending thoracic aorta. Normal visualized thoracic spine. Normal visualized ribs, clavicles, and shoulders. There is no demonstrated abnormality of the visualized soft tissue structures of the upper abdomen. RAD/Chest 1 View (Portable) IMPRESSION: No acute pulmonary process Electronically Signed: Luis Eduardo Torres MD at 14:15 EDT , Service support ,
[2019-01-08] MEDS: Morphine 4 MG/ML Syringe IV ×2 (13:08→14:25)
--- NOTE | 2019-01-08 13:17 | ED.VIS.FALL ---
History of Present Illness Chief Complaint: Fall Informant: Patient Occurred: Yesterday Fall from Height (ft): 3-4 Usually ambulates: Without assistance Location: entire back Quality of Pain: Aching Current Severity: Severe Maximum Severity: Severe Worsened by: any movement Relieved by: remaining still Associated Symptoms: Negative for: Parasthesias, Weakness, Loss of function, Inability to ambulate, Loss of consciousness, Amnesia Narrative: Patient states she was getting out of an aboveground pool, she slipped on the ladder as it was unsteady and fell off to the ground below onto her back. She has no neck pain or headache and did not lose consciousness or hit her head. Pain goes down into her right thigh but not below the knee and she has no numbness or tingling or weakness of an extremity. However, lying on the couch, she cannot get off because her back hurts too bad. She does have chronic low back problems. She denies injuring her upper or lower extremities although her right hip hurts externally, she points to her buttock. She is a liver transplant patient less than 1 year ago, for Jewell. - Past Medical History (1) Esophageal varices Status: Chronic Comment: numerous banding (2) Hiatal hernia Status: Chronic (3) Migraine Status: Chronic (4) JEWELL (nonalcoholic steatohepatitis) Status: Chronic (5) Seizures Status: Chronic Comment: last known 11/2016 Past Medical History - Allergies and Home Meds Allergies/Adverse Reactions: Allergies diphenhydramine HCl [From Benadryl] Adverse Reaction (Verified 01/08/19 11:29) climb [place] [facility] [place] lorazepam [From Ativan] Adverse Reaction (Verified 01/08/19 11:29) Climb [place] rose SHE FEELS LIKE SHE WANTS TO CLIMB THE ROSE prednisone Adverse Reaction (Verified 01/08/19 11:29) Other prochlorperazine edisylate [From Compazine] Adverse Reaction (Verified 01/08/19 11:29) [place] [place] prochlorperazine maleate [From Compazine] Adverse Reaction (Verified 01/08/19 11:29) climb out of my body CLIMB OUT OF MY BODY promethazine HCl [From Phenergan] Adverse Reaction (Verified 01/08/19 11:29) climb [place] [place] sulfamethoxazole [From Bactrim] Adverse Reaction (Verified 01/08/19 11:29) Fever and skin rash topiramate [From Topamax] Adverse Reaction (Verified 01/08/19 11:29) Other tramadol Adverse Reaction (Verified 01/08/19 11:29) climb the rose feels like going to climb rose trimethoprim [From Bactrim] Adverse Reaction (Verified 01/08/19 11:29) Fever and skin rash Primary Care Physician: Anna Meza NP-C [Primary Care Provider] - Surgical History: cholecystectomy, hysterectomy, total knee arthroplasty, - - cholecystectomy, partial hysterectomy, right shoulder replacement secondary to fall secondary to seizure, bilateral knee arthroscopic Smoking Status: Never smoker - Family History Maternal Family History: Reports: COPD Paternal Family History: Reports: Heart Disease - CHF, - - Liver disease, alcoholism Sibling Family History: Reports: Heart Disease, Stroke, - - cirrhosis Review of Systems General: Denies: Chills, Fever, Sweats Eyes: Denies: Visual changes - bilaterally, Diplopia ENT: Denies: Bilateral ear pain, Rhinorrhea, Sore throat Cardiovascular: Denies: Chest pain, Palpitations Respiratory: Denies: Dyspnea, Cough, Dyspnea on exertion Gastrointestinal: Reports: Abdominal pain - Mostly right groin, since her fall. Denies: Nausea, Vomiting, Diarrhea, Melena, Hematochezia Genitourinary: Denies: Dysuria, Hematuria, Frequency Musculoskeletal: Reports: Back pain, Extremity Pain - Right lower Skin: Denies: Rash, Wounds Neurological: Denies: Headache, Weakness, Numbness Physical Exam Vital Signs/Narrative: Vital Signs Temp Pulse Resp BP Pulse Ox 01/08/19 11:29 98.0 F 89 17 107/65 96 Inital Vital Signs reviewed: Yes General: Well nourished, Well developed, - - Mild painful distress, lying left lateral decubitus and does not want to move. Head: Normocephalic, Atraumatic Eyes: Perrl, EOMI ENT: TM's clear, No hemotympanum or drainage, No trauma. Negative for: Otorrhea, Nasal trauma Neck: Nontender, Full ROM Cardiovascular: Regular rate, Regular rhythm, No murmurs Respiratory: No distress, CTA bilaterally, Chest nontender Abdomen: Soft, Nondistended, Normal bowel sounds, Tender - Throughout right side. Negative for: Guarding, Rebound tenderness Back: Spinal Tenderness - Throughout most of thoracic and all of lumbosacral spine. No step-off or obvious signs of trauma. No cervical spine tenderness Extremeties: Pain in right hip with logrolling, but able to fully flex the knee with little pain or difficulty. No shortening or deformity. No other extremity tenderness. Skin: Normal color, No rash, No Trauma Neurological: Alert, Oriented x3, Cranial nerves II-XII grossly intact, Normal Strength, Normal Sensation Psychological: Normal affect, Normal Mood Diagnostic/Tx/Re-eval Impressions Abdomen/Pelvis CT 01/08/19 12:47 IMPRESSION: No suspicious solid organ abnormality No CT evidence of acute fracture, chronic compression fractures noted at L1 and L2 Retained stool in the colon, previously noted cecal thickening and pericecal inflammation have resolved, this likely represented a focal colitis. Splenomegaly Electronically Signed: Luis Eduardo Torres MD at 14:26 EDT , Service support , Chest X-Ray 01/08/19 12:47 IMPRESSION: No acute pulmonary process Electronically Signed: Luis Eduardo Torres MD at 14:15 EDT , Service support , Thoracic Spine X-Ray 01/08/19 12:47 IMPRESSION: Degenerative changes, no acute findings Electronically Signed: Luis Eduardo Torres MD at 14:20 EDT , Service support , 01/08/19 12:47 Abdomen/Pelvis without Cont [CT] Stat Chest 1 View (Portable) [RAD] Stat Thoracic Spine 2 Views [RAD] Stat Laboratory Results 01/08/19 01/08/19 13:15 13:15 WBC 4.4 RBC 4.19 L Hgb 11.8 L Hct 35.9 L MCV 85.7 MCH 28.2 MCHC 32.9 RDW Std Deviation 41.5 RDW Coeff of Nicole 13.5 Plt Count 135 L MPV 11.5 Immature Gran % (Auto) 2.500 H Neut % (Auto) 60.2 Lymph % (Auto) 27.5 Garfield % (Auto) 7.7 Eos % (Auto) 1.4 Baso % (Auto) 0.7 Absolute Neuts (auto) 2.7 Absolute Lymphs (auto) 1.22 Absolute Nucleated RBC 0.00 Nucleated RBC % 0 Sodium 137 Potassium 4.2 Chloride 103 Carbon Dioxide 31.0 Anion Gap 3 L BUN 8 Creatinine 0.85 Estim Creat Clear Calc 67.62 Est GFR (MDRD) Af Amer 90 Est GFR (MDRD) Non-Af 74 BUN/Creatinine Ratio 9.4 L Glucose 95 Calcium 8.9 Total Bilirubin 0.50 AST 21 ALT 15 Alkaline Phosphatase 109 Total Protein 7.6 Albumin 3.5 Globulin 4.1 Albumin/Globulin Ratio 0.9 - Medical Decision Making Work-up is unremarkable, imaging shows no fractures or organ injury. She has old lumbar compression fractures but they are unchanged. She is better after analgesics and able to stand/walk. She has a ride home, supportive care advised as well as close outpatient follow-up. Error on checking OARRS report; given short Rx of Percocet. ED Disposition - Plan for ED Patient: Disposition: Home or Assisted Living Diagnosis: Back contusion, Fall from slip, trip, or stumble Instructions: CONTUSION, Back Prescriptions: Oxycodone HCl/Acetaminophen [Percocet 5/325] 1 tab PO Q6H PRN PRN 3 Days #12 tab PRN Reason: Pain Prescription Printed Referrals: Anna Meza, AUTOMATIC TRANSMISSION MECHANIC-C [Primary Care Provider] - 1 Week if not improving
[2019-01-08 13:37] LABS: Absolute Lymphocyte Count 1.22 X10^3/uL (0.83-4.51); Absolute Neutrophil Count 2.7 X10^3/uL (2.0-7.7); Basophil# 0.03 X10^3/uL; Basophil% 0.7 % (0-1); Eosinophil# 0.06 X10^3/uL; Eosinophils% 1.4 % (0-5); Hematocrit 35.9 % (37-47); Hemoglobin 11.8 g/dL (12.0-15.0); Lymphocyte # 1.22 X10^3/ul (4.0); Lymphocyte % 27.5 % (19-41); Mean Corp Hgb Conc 32.9 g/dL (32-36); Mean Corpuscular Hgb 28.2 pg (27.0-32.0); Mean Corpuscular Volume 85.7 fL (81-99); Mean Platelet Vol. 11.5 fl (6.2-12.0); Monocyte# 0.34 X10^3/uL; Monocyte% 7.7 % (0-10); NRBC Flagged by Analyzer 0 % (0-5); Neutrophil # 2.68 X10^3/uL (2.7-7.7); Neutrophil % 60.2 % (47-70); Platelet Count 135 K/mm3 (150-450); RBC Distribution Width CV 13.5 % (11.6-14.6); RBC Distribution Width SD 41.5 fl (35.1-43.9); Red Blood Count 4.19 M/mm3 (4.2-5.4); White Blood Count 4.4 K/mm3 (4.4-11.0)
[2019-01-08 13:45] LABS: ALB/GLOB Ratio 0.9 RATIO (0.9-2.4); AST(SGOT) 21 U/L (15-37); Alanine Aminotransfer ALT/SGPT 15 U/L (13-56); Albumin, Serum 3.5 g/dL (3.2-5.0); Alkaline Phosphatase 109 U/L (45-117); Anion Gap 3 (5-15); BUN 8 mg/dL (7-18); BUN/Creat Ratio 9.4 RATIO (10-20); Calcium,Total 8.9 mg/dL (8.5-10.1); Chloride 103 mmol/L (98-107); Creatinine, Serum 0.85 mg/dL (0.55-1.02); EST Glomerular Filtration Rate 74 mL/min (>60); Est Glom Filt Rate - Afr Amer 90 mL/min (>60); Estimated Creatinine Clearance 67.62 ml/min; Globulin 4.1 g/dL (2.2-4.2); Glucose 95 mg/dL (74-106); Potassium 4.2 mmol/L (3.5-5.1); Protein, Total 7.6 g/dL (6.4-8.2); Sodium Level 137 mmol/L (136-145)
[2019-01-08 15:57] VITALS: BP 107/71; PULSE 90; RESP 16; O2SAT 94
== END 2019-01-08 15:58 | disposition home or self-care (01) ==
PROVIDERS: Emergency Provider Emergency Medicine; Family Provider Nurse Practitioner Primary Care; PCP Nurse Practitioner Primary Care
DX: S30.0XXA Contusion of lower back and pelvis, initial encounter (principal); S20.229A Contusion of unspecified back wall of thorax, initial encounter; W11.XXXA Fall on and from ladder, initial encounter; Y93.9 Activity, unspecified; Y92.9 Unspecified place or not applicable; K44.9 Diaphragmatic hernia without obstruction or gangrene; K75.81 Nonalcoholic steatohepatitis (NASH); I85.00 Esophageal varices without bleeding; G40.909 Epilepsy, unspecified, not intractable, without status epilepticus; G43.909 Migraine, unspecified, not intractable, without status migrainosus; Z94.4 Liver transplant status; Z79.899 Other long term (current) drug therapy
CPT/HCPCS: 71045; 72070; 74176; 80053; 85025; 96361; 96374; 96376; 99283; J7030; A4216

== ENCOUNTER 2019-01-21 08:59 | Outpatient (RCR) | payer MEDICARE, MEDICAID, SELFPAY ==
[2019-01-21 10:32] LABS: Absolute Lymphocyte Count 1.41 X10^3/uL (0.83-4.51); Absolute Neutrophil Count 3.8 X10^3/uL (2.0-7.7); Basophil# 0.04 X10^3/uL; Basophil% 0.7 % (0-1); Eosinophil# 0.12 X10^3/uL; Hematocrit 38.4 % (37-47); Hemoglobin 12.9 g/dL (12.0-15.0); Lymphocyte # 1.41 X10^3/ul (4.0); Lymphocyte % 23.9 % (19-41); Mean Corp Hgb Conc 33.6 g/dL (32-36); Mean Corpuscular Hgb 27.9 pg (27.0-32.0); Mean Corpuscular Volume 82.9 fL (81-99); Monocyte# 0.46 X10^3/uL; Monocyte% 7.8 % (0-10); NRBC Flagged by Analyzer 0 % (0-5); Neutrophil # 3.84 X10^3/uL (2.7-7.7); Neutrophil % 65.1 % (47-70); Platelet Count 137 K/mm3 (150-450); RBC Distribution Width CV 13.9 % (11.6-14.6); RBC Distribution Width SD 41.6 fl (35.1-43.9); Red Blood Count 4.63 M/mm3 (4.2-5.4); White Blood Count 5.9 K/mm3 (4.4-11.0)
[2019-01-21 10:59] LABS: AST(SGOT) 38 U/L (15-37); Alanine Aminotransfer ALT/SGPT 38 U/L (13-56); Albumin, Serum 3.8 g/dL (3.2-5.0); Alkaline Phosphatase 149 U/L (45-117); Anion Gap 8 (5-15); BUN 12 mg/dL (7-18); BUN/Creat Ratio 14.5 RATIO (10-20); Bilirubin, Direct 0.09 mg/dL (0.00-0.30); Calcium,Total 9.4 mg/dL (8.5-10.1); Chloride 104 mmol/L (98-107); Creatinine, Serum 0.82 mg/dL (0.55-1.02); EST Glomerular Filtration Rate 77 mL/min (>60); Est Glom Filt Rate - Afr Amer 94 mL/min (>60); Globulin 4.5 g/dL (2.2-4.2); Glucose 157 mg/dL (74-106); Phosphorus 4.5 mg/dL (2.5-4.9); Potassium 4.2 mmol/L (3.5-5.1); Protein, Total 8.3 g/dL (6.4-8.2); Sodium Level 140 mmol/L (136-145)
[2019-01-24 07:42] LABS: Tacrolimus (FK506) 2.8 ng/mL (2.0-20.0)
== END 2019-01-21 09:59 ==
LOC: LAB 08:59
PROVIDERS: Family Provider Nurse Practitioner Primary Care; PCP Nurse Practitioner Primary Care
DX: D89.9 Disorder involving the immune mechanism, unspecified (principal); Z94.4 Liver transplant status
CPT/HCPCS: 36415; 80048; 80076; 80197; 84100; 85025

== ENCOUNTER 2019-02-04 11:23 | Inpatient (IN) | payer MEDICARE, MEDICAID, SELFPAY ==
[2019-02-04] VITALS (14 sets, daily range): BP systolic 95–116; BP diastolic 47–84; PULSE 87–113; RESP 15–24; TEMP 36.6–38.1; O2SAT 88–97; BMI 26.6; BMI 27.6
--- NOTE | 2019-02-04 12:03 | RAD_ITS ---
STUDY: X-RAY CHEST REASON FOR EXAM: Female, 53 years old. Fever TECHNIQUE: Single AP portable view of the chest. COMPARISON: 01/08/2019 FINDINGS: Stable post surgical change in the upper abdomen. The lungs are clear and expanded. There is no demonstrated pleural abnormality. Normal size heart. Normal mediastinum and erin. Normal visualized pulmonary arteries. Normal visualized aortic arch and descending thoracic aorta. Normal visualized thoracic spine. Normal visualized ribs, clavicles, and shoulders. There is no other demonstrated abnormality of the visualized soft tissue structures of the upper abdomen. RAD/Chest 1 View (Portable) IMPRESSION: No acute intrathoracic process. Stable post surgical change in the upper abdomen. Electronically Signed: Renny Echavarria MD at 12:26 EDT Tel [phone], Service support ,
--- NOTE | 2019-02-04 12:04 | CT_ITS ---
STUDY: CT ABDOMEN AND PELVIS WITHOUT CONTRAST REASON FOR EXAM: Female, 53 years old. History of liver transplant, with loose stool and pain in the lower abdomen RADIATION DOSAGE (If Supplied By Facility): CTDIvol = ( 11.35 ) mGy, DLP = ( 601.24 ) mGycm TECHNIQUE: Transaxial images were obtained from the dome of the diaphragm to the symphysis pubis without oral contrast, and without intravenous contrast. Sagittal and coronal images were reconstructed. Individualized dose optimization techniques were used for this CT. COMPARISON: 01/08/2019 FINDINGS: The visualized lung bases are unremarkable. The visualized portions of the heart are within normal limits. Unremarkable contour of the transplanted liver, with clips in the clare hepatis. There are surgical clips in the gallbladder fossa consistent with a prior cholecystectomy. Stable splenomegaly Normal pancreas. Normal bilateral adrenal glands. Normal right kidney. Normal left kidney. There is no evidence of hydronephrosis. Normal visualized stomach. Normal small intestine. Normal colon. The appendix is visualized and appears normal. There is diffuse atherosclerotic calcification of the abdominal aorta, without a demonstrated aneurysm. Normal inferior vena cava. Normal retroperitoneum. Normal urinary bladder. There is a small umbilical hernia containing fat. Stable chronic fracture of L1 and L2. CT/Abdomen/Pelvis without Cont IMPRESSION: Stable splenomegaly. Stable chronic fracture of L1 and L2. Unremarkable transplanted liver. No evidence of hydronephrosis on either side. No evidence of ascites fluid. No evidence of significant fecal loading in the colon. Electronically Signed: Renny Echavarria MD at 13:16 EDT Tel [phone], Service support ,
--- NOTE | 2019-02-04 12:08 | ED.VIS.GI ---
History of Present Illness Chief Complaint: Abd Pain Informant: Patient - Abdominal Pain/Flank Pain Onset: Yesterday Context: Gradual Onset Timing: Continuous Quality: Aching Location: - - lower abd Current Severity: Severe Maximum Severity: Severe Worsened by: Nothing Relieved by: Nothing - Nausea/Vomiting/Emesis GI Symptom: Nausea. Negative for: Vomiting - Diarrhea/Melena/Hematochezia GI Symptom: Negative for: Diarrhea, Melena, Hematochezia Associated Symptoms: - - decreased UOP despite drinking water. 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 She states her Prograf levels were very high, causing her to be leukopenic, she was put on steroids, and just finished those 2 days ago, and started getting a fever afterwards. She also started getting lower abdominal pain. When the Prograf levels were high she was told she had a colon infection but she states she did not have this pain then and did not have diarrhea, and is having that now. No blood. T-max 101.3. - Past Medical History (1) Esophageal varices Status: Chronic Comment: numerous banding (2) Hiatal hernia Status: Chronic (3) Migraine Status: Chronic (4) MARMOLEJO (nonalcoholic steatohepatitis) Status: Chronic (5) Seizures Status: Chronic Comment: last known 11/2016 Past Medical History - Allergies and Home Meds Allergies/Adverse Reactions: Allergies diphenhydramine HCl [From Benadryl] Adverse Reaction (Verified 02/04/19 11:25) [place] [facility] [place] lorazepam [From Ativan] Adverse Reaction (Verified 02/04/19 11:25) Climb [place] SHE FEELS LIKE SHE WANTS TO CLIMB THE ROSE prednisone Adverse Reaction (Verified 02/04/19 11:25) Other prochlorperazine edisylate [From Compazine] Adverse Reaction (Verified 02/04/19 11:25) [place] [place] prochlorperazine maleate [From Compazine] Adverse Reaction (Verified 02/04/19 11:25) climb out of my body CLIMB OUT OF MY BODY promethazine HCl [From Phenergan] Adverse Reaction (Verified 02/04/19 11:25) [place] [place] sulfamethoxazole [From Bactrim] Adverse Reaction (Verified 02/04/19 11:25) Fever and skin rash topiramate [From Topamax] Adverse Reaction (Verified 02/04/19 11:25) Other tramadol Adverse Reaction (Verified 02/04/19 11:25) climb the rose feels like going to climb rose trimethoprim [From Bactrim] Adverse Reaction (Verified 02/04/19 11:25) Fever and skin rash Primary Care Physician: Anna Meza, NATURAL SCIENCE CURATOR-C [Primary Care Provider] - Surgical History: cholecystectomy, hysterectomy, total knee arthroplasty, - - cholecystectomy, partial hysterectomy, right shoulder replacement secondary to fall secondary to seizure, bilateral knee arthroscopic, liver transplant Smoking Status: Never smoker Alcohol: None - Family History Maternal Family History: Reports: COPD Paternal Family History: Reports: Heart Disease - CHF, - - Liver disease, alcoholism Sibling Family History: Reports: Heart Disease, Stroke, - - cirrhosis Review of Systems General: Reports: Fever, Malaise. Denies: Chills, Sweats Eyes: Denies: Visual changes - bilaterally, Diplopia ENT: Denies: Rhinorrhea, Sore throat Cardiovascular: Denies: Chest pain, Palpitations Respiratory: Denies: Dyspnea, Cough, Dyspnea on exertion Gastrointestinal: Reports: Abdominal pain, Nausea, Diarrhea. Denies: Vomiting, Melena, Hematochezia Genitourinary: Denies: Dysuria, Hematuria, Frequency Musculoskeletal: Denies: Neck pain, Back pain, Extremity Pain Skin: Denies: Rash, Wounds Neurological: Denies: Headache, Weakness, Numbness Physical Exam Vital Signs/Narrative: Vital Signs Temp Pulse Resp BP Pulse Ox 02/04/19 11:36 98.1 F 87 16 115/77 97 02/04/19 11:25 98.1 F 113 H 18 115/77 94 Inital Vital Signs reviewed: Yes General: Well nourished, Well developed, No Acute Distress Head: Normocephalic, Atraumatic Eyes: Perrl, EOMI ENT: Moist mucous membranes, No rhinorrhea Neck: Supple, Nontender Cardiovascular: Regular rate, Regular rhythm, No murmurs, Tachycardia Respiratory: No distress, CTA bilaterally, Chest nontender Abdomen: Soft, Nondistended, Normal bowel sounds, Tender - Diffusely, worse throughout lower abdomen, nonlateralizing, - - Well-healed surgical incision x2 right upper quadrant. Negative for: Guarding, Rebound tenderness Back: Nontender, Normal Inspection. Negative for: CVA tenderness Extremities: Nontender, No edema Skin: Normal color, No rash, No Trauma Neurological: Alert, Oriented x3, Cranial nerves II-XII grossly intact, Normal Strength, Normal Sensation Psychological: Normal affect, Normal Mood Diagnostic/Tx/Re-eval Impressions Chest X-Ray 02/04/19 12:03 IMPRESSION: No acute intrathoracic process. Stable post surgical change in the upper abdomen. Electronically Signed: Renny Echavarria MD at 12:26 EDT Tel [phone], Service support , Abdomen/Pelvis CT 02/04/19 12:04 IMPRESSION: Stable splenomegaly. Stable chronic fracture of L1 and L2. Unremarkable transplanted liver. No evidence of hydronephrosis on either side. No evidence of ascites fluid. No evidence of significant fecal loading in the colon. Electronically Signed: Renny Echavarria MD at 13:16 EDT Tel [phone], Service support , 02/04/19 12:03 Chest 1 View (Portable) [RAD] Stat 02/04/19 12:04 Abdomen/Pelvis without Cont [CT] Stat Laboratory Results 02/04/19 02/04/19 02/04/19 11:41 11:41 11:41 WBC 12.6 H RBC 4.75 Hgb 13.2 Hct 38.8 MCV 81.7 MCH 27.8 MCHC 34.0 RDW Std Deviation 40.2 RDW Coeff of Nicole 13.9 Plt Count 115 L MPV 10.5 Immature Gran % (Auto) 0.400 Neut % (Auto) 80.7 H Lymph % (Auto) 9.5 L Calvert % (Auto) 6.6 Eos % (Auto) 2.6 Baso % (Auto) 0.2 Absolute Neuts (auto) 10.2 H Absolute Lymphs (auto) 1.20 Nucleated RBC % 0 PT 13.5 INR 1.1 APTT 28.1 Sodium 138 Potassium 3.9 Chloride 104 Carbon Dioxide 27.0 Anion Gap 7 BUN 10 Creatinine 0.90 Estim Creat Clear Calc 66.54 Est GFR (MDRD) Af Amer 85 Est GFR (MDRD) Non-Af 70 BUN/Creatinine Ratio 11.1 Glucose 128 H Lactic Acid Calcium 8.6 Total Bilirubin 0.90 AST 24 ALT 31 Alkaline Phosphatase 138 H Total Protein 7.5 Albumin 3.4 Globulin 4.1 Albumin/Globulin Ratio 0.8 L Urine Color Urine Clarity Urine pH Ur Specific [place] Urine Protein Urine Glucose (UA) Urine Ketones Urine Occult Blood Urine Nitrite Urine Bilirubin Urine Urobilinogen Ur Leukocyte Esterase Urine RBC Urine WBC Ur Squamous Epith Cells Urine Bacteria Urine Mucus 02/04/19 02/04/19 11:41 12:33 WBC RBC Hgb Hct MCV MCH MCHC RDW Std Deviation RDW Coeff of Nicole Plt Count MPV Immature Gran % (Auto) Neut % (Auto) Lymph % (Auto) Cal[place] % (Auto) Eos % (Auto) Baso % (Auto) Absolute Neuts (auto) Absolute Lymphs (auto) Nucleated RBC % PT INR APTT Sodium Potassium Chloride Carbon Dioxide Anion Gap BUN Creatinine Estim Creat Clear Calc Est GFR (MDRD) Af Amer Est GFR (MDRD) Non-Af BUN/Creatinine Ratio Glucose Lactic Acid 1.2 Calcium Total Bilirubin AST ALT Alkaline Phosphatase Total Protein Albumin Globulin Albumin/Globulin Ratio Urine Color Yellow Urine Clarity Clear Urine pH 6.0 Ur Specific [place] 1.010 Urine Protein Negative Urine Glucose (UA) Normal Urine Ketones Negative Urine Occult Blood 10 H Urine Nitrite Negative Urine Bilirubin Negative Urine Urobilinogen Normal Ur Leukocyte Esterase 25 H Urine RBC 0 SEEN Urine WBC 0 SEEN Ur Squamous Epith Cells 0-5 SEEN Urine Bacteria 0 SEEN Urine Mucus 0 SEEN - Medical Decision Making Work-up shows a mild leukocytosis and reassuringly no leukopenia or neutropenia. Chest x-ray and urinalysis are negative for obvious source of infection. CT of her abdomen/pelvis is also negative for anything acute. She was not able to provide a diarrhea specimen while here in the emergency department to send for C. difficile for enteric bacterial panel. Initially her symptoms were not much better after morphine and Zofran, so she was given another dose of Zofran in addition to Dilaudid, which did help her pain. Discussed with the event promotions coordinator at [facility] transplant department. They do not require the patient to come down there for this, and the patient does not want to go to [place] if she does not have to at this time. I think she is ill enough to be admitted. She has not had diarrhea yet and it would be preferable to get a sample to send for the above testing before placing her on any prophylactic antibiotics, some of which could harm her if she has C. difficile. She is in agreement and prefers to stay as well. ED Disposition - Plan for ED Patient: Disposition: Acute Care Hospital [facility] Diagnosis: Fever, Immunocompromised state due to drug therapy, Liver transplant recipient, Lower abdominal pain, Acute diarrhea, Intractable abdominal pain Referrals: Anna Meza, NATURAL SCIENCE CURATOR-C [Primary Care Provider] -
[2019-02-04 12:16] LABS: Absolute Neutrophil Count 10.2 X10^3/uL (2.0-7.7); Basophil# 0.03 X10^3/uL; Basophil% 0.2 % (0-1); Eosinophil# 0.33 X10^3/uL; Eosinophils% 2.6 % (0-5); Hematocrit 38.8 % (37-47); Hemoglobin 13.2 g/dL (12.0-15.0); Lymphocyte % 9.5 % (19-41); Mean Corpuscular Hgb 27.8 pg (27.0-32.0); Mean Corpuscular Volume 81.7 fL (81-99); Mean Platelet Vol. 10.5 fl (6.2-12.0); Monocyte# 0.83 X10^3/uL; Monocyte% 6.6 % (0-10); NRBC Flagged by Analyzer 0 % (0-5); Neutrophil # 10.16 X10^3/uL (2.7-7.7); Neutrophil % 80.7 % (47-70); Platelet Count 115 K/mm3 (150-450); RBC Distribution Width CV 13.9 % (11.6-14.6); RBC Distribution Width SD 40.2 fl (35.1-43.9); Red Blood Count 4.75 M/mm3 (4.2-5.4); White Blood Count 12.6 K/mm3 (4.4-11.0)
[2019-02-04 12:21] LABS: International Normalized Ratio 1.1; Prothrombin Time (Protime)PT. 13.5 SECONDS (11.7-14.9)
[2019-02-04 12:22] LABS: Partial Thromboplast Time 28.1 Seconds (24.1-36.2)
[2019-02-04 12:30] LABS: ALB/GLOB Ratio 0.8 RATIO (0.9-2.4); AST(SGOT) 24 U/L (15-37); Alanine Aminotransfer ALT/SGPT 31 U/L (13-56); Albumin, Serum 3.4 g/dL (3.2-5.0); Alkaline Phosphatase 138 U/L (45-117); Anion Gap 7 (5-15); BUN 10 mg/dL (7-18); BUN/Creat Ratio 11.1 RATIO (10-20); Calcium,Total 8.6 mg/dL (8.5-10.1); Chloride 104 mmol/L (98-107); EST Glomerular Filtration Rate 70 mL/min (>60); Est Glom Filt Rate - Afr Amer 85 mL/min (>60); Estimated Creatinine Clearance 66.54 ml/min; Globulin 4.1 g/dL (2.2-4.2); Glucose 128 mg/dL (74-106); Potassium 3.9 mmol/L (3.5-5.1); Protein, Total 7.5 g/dL (6.4-8.2); Sodium Level 138 mmol/L (136-145)
[2019-02-04 12:31] LABS: Lactic Acid 1.2 mmol/L (0.4-2.0)
[2019-02-04] MEDS: 0.9% Normal Saline 1,000 ML 250 ML IV (12:34)
[2019-02-04] MEDS: Morphine 4 MG/ML Syringe IV (12:35)
[2019-02-04] MEDS: Ondansetron 4 MG/2 ML Vial IV ×2 (12:35→14:20)
[2019-02-04 12:44] LABS: Bacteria 0 SEEN /hpf (None Seen); Mucous, Urine 0 SEEN /hpf (<or=2+); Red Blood Cells-Urine 0 SEEN /hpf (0-5); White Blood Cells 0 SEEN /hpf (0-5)
[2019-02-04 12:47] LABS: Color, Urine Yellow (Yellow); Glucose, Dipstick Normal (Normal); Ketone-Dipstick Negative (Negative); Leukocyte Esterase-Dipstick 25 /ul (Negative); Nitrite-Dipstick Negative (Negative); Occult Blood-Urine 10 /ul (Negative); Protein-Dipstick Negative (Negative); Urine Bilirubin Dipstick Negative (Negative); Urine Clarity Clear (Clear); Urine Urobilinogen Normal (Normal)
[2019-02-04 12:53] LABS: Squamous Epithelial Cells - UA 0-5 SEEN /hpf (5-10)
[2019-02-04] MEDS: HYDROmorphone 1 MG/ML Syringe IV ×3 (14:02→23:43)
--- NOTE | 2019-02-04 16:32 | PCM.HP.STD ---
<Rosalino Tristan - Last Filed: 02/04/19 16:32> Problem List (1) Acute diarrhea Status: Acute (2) Intractable abdominal pain Status: Acute (3) Immunocompromised state due to drug therapy Status: Chronic (4) Liver transplant recipient Status: Chronic (5) Esophageal varices Status: Chronic Comment: numerous banding (6) Hiatal hernia Status: Chronic (7) Migraine Status: Chronic (8) JEWELL (nonalcoholic steatohepatitis) Status: Chronic (9) Seizures Status: Chronic Comment: last known 11/2016 (10) Anxiety Status: Chronic History of Present Illness Date of Admission: 02/04/19 Chief Complaint: Fever The patient is a 53 year old F with past medical history for Jewell status post liver transplant this past year, esophageal varices, seizure disorder, migraines, anxiety, who presents to the emergency room with complaint of fever at home of 101.3, as well as bilateral lower quadrant abdominal pain. The patient received her liver in May, since she has been on mycophenolate and tacrolimus. She knows that when she develops a fever she needs to seek medical attention given her immunocompromise state. She had fever and abdominal pain in December, presented to the emergency room on the and was transferred to [place] where her transplant team is where she was treated for colitis and discharged on the . Since then she has had issues with her Prograf level being toxic and having associated neutropenia. To bolster this she was started on prednisone which she completed approximately 2 days ago. After she completed prednisone she began to have increased abdominal pain and developed a fever which reportedly was 101.3 at home. She is also had loose bowel movements reporting at least 10 already today. Since being in the emergency room she has not had any. She has some nausea but no vomiting at all today. She describes her abdominal pain as sharp and horrible and states that sitting up makes it worse. She has been able to eat small amounts and keep it down. She states she has never had C. difficile before. On her last admission they checked her for this and it was negative. No specific etiology was named. In the emergency room here she has a mild leukocytosis and no fever so far, with mild tachycardia. Her alk phos is somewhat elevated otherwise her liver enzymes are normal. She does have diffuse all over itching, worse over her abdominal incision site. No other changes at the incision site. [] Past Medical History Past Medical History (Chronic Problems): Chronic Problems Immunocompromised state due to drug therapy (Chronic) Liver transplant recipient (Chronic) Anxiety (Chronic) JEWELL (nonalcoholic steatohepatitis) (Chronic) Migraine (Chronic) Asthma (Chronic) Hiatal hernia (Chronic) Esophageal varices (Chronic) numerous banding Seizures (Chronic) last known 11/2016 Allergies sulfamethoxazole [From Bactrim] Allergy (Verified 02/04/19 16:09) Fever and skin rash trimethoprim [From Bactrim] Allergy (Verified 02/04/19 16:09) Fever and skin rash diphenhydramine HCl [From Benadryl] Adverse Reaction (Verified 02/04/19 11:25) climb the rose CLIMB [facility] RO[facility] lorazepam [From Ativan] Adverse Reaction (Verified 02/04/19 11:25) Climb the rose SHE FEELS LIKE SHE WANTS TO CLIMB THE ROSE prochlorperazine edisylate [From Compazine] Adverse Reaction (Verified 02/04/19 11:25) climb the rose CLIMB [facility] ROSE prochlorperazine maleate [From Compazine] Adverse Reaction (Verified 02/04/19 11:25) climb out of my body CLIMB OUT OF MY BODY promethazine HCl [From Phenergan] Adverse Reaction (Verified 02/04/19 11:25) climb the rose CLIMB [place] ROSE topiramate [From Topamax] Adverse Reaction (Verified 02/04/19 11:25) Other tramadol Adverse Reaction (Verified 02/04/19 11:25) climb the rose feels like going to climb rose Home Medications: Ambulatory Orders Medication Instructions Recorded Sumatriptan Succinate [Imitrex] 100 mg PO BID PRN PRN 01/31/15 Citalopram [Celexa] 40 mg PO DAILY 07/29/16 Clonazepam [Klonopin] 2 mg PO QHS 08/19/17 Albuterol Inhaler [Ventolin Hfa] 1 - 2 puff INHALATION Q4H PRN PRN 02/08/18 Mometasone/Formoterol [Dulera 200 2 puff IN QHS 02/08/18 Mcg/5 Mcg Inhaler] Entecavir [Baraclude] 0.5 mg PO DAILY 12/25/18 Tacrolimus Anhydrous [Prograf] 15 mg PO TID 12/25/18 busPIRone [Buspar] 5 mg PO BID 12/25/18 Calcium Carbonate/Vitamin D3 1 tab PO BID 02/04/19 [Calcium 500-Vit D3 200 Tablet] Carbamazepine 200 mg PO DAILY 02/04/19 Carbamazepine 400 mg PO QHS 02/04/19 Famotidine 20 mg PO BID 02/04/19 Mycophenolate Mofetil 250 mg PO QHS 02/04/19 Tacrolimus 2 mg PO TID 02/04/19 Surgical History: cholecystectomy, hysterectomy, total knee arthroplasty, - - cholecystectomy, partial hysterectomy, right shoulder replacement secondary to fall secondary to seizure, bilateral knee arthroscopic, liver transplant Psychiatric History: Anxiety, Depression RATE MANAGER History: No pertinent RATE MANAGER history Lives: Spouse/ Significant Other Smoking Status: Never smoker Tobacco Use: Non-smoker Alcohol: None Drugs: None - *Family History Maternal History Items: COPD Paternal History Items: Heart Disease - CHF, - - Liver disease, alcoholism Sibling History Items: Heart Disease, Stroke, - - cirrhosis Review of Systems Constitutional: Reports: Fever. Denies: Chills, Weight Change HEENT: Denies: Head Aches, Sinus Congestion, Sinus Drainage Cardiovascular: Denies: Chest Pain, Edema, Heaviness, Light Headedness, Palpitations Respiratory: Denies: Cough, Shortness of breath at rest, Sputum production Gastrointestinal: Reports: Abdominal Pain, Diarrhea, Nausea. Denies: Vomiting Genitourinary: Denies: Dysuria Musculoskeletal: Denies: Joint Pain, Joint Tenderness Skin: Reports: Pruritis. Denies: Rash, Wounds Neurological: Denies: Numbness, Tingling, Focal weakness Psychiatric: Reports: Anxiety. Denies: Depression, Homicidal Ideations, Suicidal Ideations Hematologic/ Lymphatic: Denies: Easy Bruising, Easy Bleeding VTE Information - Inpt Only VTE Present on Admission: No VTE Mechan Device Prophylaxis: None VTE Pharm Prophylaxis ordered?: Yes Patient Problems: Active and Suspected Problems Fever (Acute) Lower abdominal pain (Acute) Acute diarrhea (Acute) Intractable abdominal pain (Acute) - Physical Exam General: Alert, Oriented x3, Cooperative HEENT: Atraumatic, PERRLA, EOMI, Normocephalic Neck: Supple, No JVD, Negative Carotid Bruits Lungs: Clear to auscultation, Normal air movement Cardiovascular: Regular rate, No murmurs Abdomen: Bowel Sounds Present, Soft, Tender - diffusely no guarding or rigidity Extremities: No edema, Capillary Refill Less than 3 Seconds Skin: No rashes, No breakdown Musculoskeletal: No Tenderness to Palpation of Joints or Extremities Neurological: Cranial nerves II-XII grossly intact Psych/Mental Status: Normal Affect, Appropriate Vital Signs Temp Pulse Resp BP Pulse Ox 97.8 F 100 20 H 110/84 H 94 02/04/19 16:23 02/04/19 16:23 02/04/19 16:23 02/04/19 16:23 02/04/19 16:23 Oxygen Flow Rate (L/min) 2 Oxygen Delivery Method Nasal Cannula Weight: 165 lb 12.602 oz Body Mass Index (BMI) 27.6 Laboratory Tests Past 24 Hrs 02/04/19 02/04/19 02/04/19 11:41 11:41 11:41 WBC 12.6 H RBC 4.75 Hgb 13.2 Hct 38.8 MCV 81.7 MCH 27.8 MCHC 34.0 RDW Std Deviation 40.2 RDW Coeff of Nicole 13.9 Plt Count 115 L MPV 10.5 Immature Gran % (Auto) 0.400 Neut % (Auto) 80.7 H Lymph % (Auto) 9.5 L Kane % (Auto) 6.6 Eos % (Auto) 2.6 Baso % (Auto) 0.2 Absolute Neuts (auto) 10.2 H Absolute Lymphs (auto) 1.20 Nucleated RBC % 0 PT 13.5 INR 1.1 APTT 28.1 Sodium 138 Potassium 3.9 Chloride 104 Carbon Dioxide 27.0 Anion Gap 7 BUN 10 Creatinine 0.90 Estim Creat Clear Calc 66.54 Est GFR (MDRD) Af Amer 85 Est GFR (MDRD) Non-Af 70 BUN/Creatinine Ratio 11.1 Glucose 128 H Lactic Acid Calcium 8.6 Total Bilirubin 0.90 AST 24 ALT 31 Alkaline Phosphatase 138 H Total Protein 7.5 Albumin 3.4 Globulin 4.1 Albumin/Globulin Ratio 0.8 L Urine Color Urine Clarity Urine pH Ur Specific [place] Urine Protein Urine Glucose (UA) Urine Ketones Urine Occult Blood Urine Nitrite Urine Bilirubin Urine Urobilinogen Ur Leukocyte Esterase Urine RBC Urine WBC Ur Squamous Epith Cells Urine Bacteria Urine Mucus 02/04/19 02/04/19 11:41 12:33 WBC RBC Hgb Hct MCV MCH MCHC RDW Std Deviation RDW Coeff of Nicole Plt Count MPV Immature Gran % (Auto) Neut % (Auto) Lymph % (Auto) Kane % (Auto) Eos % (Auto) Baso % (Auto) Absolute Neuts (auto) Absolute Lymphs (auto) Nucleated RBC % PT INR APTT Sodium Potassium Chloride Carbon Dioxide Anion Gap BUN Creatinine Estim Creat Clear Calc Est GFR (MDRD) Af Amer Est GFR (MDRD) Non-Af BUN/Creatinine Ratio Glucose Lactic Acid 1.2 Calcium Total Bilirubin AST ALT Alkaline Phosphatase Total Protein Albumin Globulin Albumin/Globulin Ratio Urine Color Yellow Urine Clarity Clear Urine pH 6.0 Ur Specific [place] 1.010 Urine Protein Negative Urine Glucose (UA) Normal Urine Ketones Negative Urine Occult Blood 10 H Urine Nitrite Negative Urine Bilirubin Negative Urine Urobilinogen Normal Ur Leukocyte Esterase 25 H Urine RBC 0 SEEN Urine WBC 0 SEEN Ur Squamous Epith Cells 0-5 SEEN Urine Bacteria 0 SEEN Urine Mucus 0 SEEN Assessment/Plan All Active Problems Acute encephalopathy (Acute) Fever (Acute) Lower abdominal pain (Acute) Acute diarrhea (Acute) Intractable abdominal pain (Acute) Hepatic encephalopathy (Acute) 1. Fever of unknown etiology - reportedly 103.[address] abdomen without acute process. She does have frequent loose stools and some nausea. Last month admitted in [facility] with colitis. Check for C diff. Check Enteric panel. Empiric Abx with cefepime and flagyl. Mild leukocytosis however she finished a course of prednisone 2 days ago. UA negative. CXR negative. Provide supportive meds and fluids, diet as tolerated. 2. Abdominal pain, unclear etiology - as above. 3. Immunocompromised 2/2 s/p Liver transplant, cellcept, prograf - this occurred this past may <1 year ago today. Check prograf level. Last was mildly decreased at 2.8. Reportedly it was recently at toxic levels with neutropenia requiring dose adjustment and prednisone therapy. Continue prophylactic antivirals. 4. Hx esophageal varices, and hiatal hernia 5. Hx migraine 6. Hx seizure - continue carbamazepine 7. Hx Anxiety - buspar, celexa, klonopin DVT ppx: lovenox DC planning: We discussed with the patient that if she worsens we will transfer her to [place] where her tx team is. This was also relayed to the Transfer team at [place]. This patient was seen by Rosalino Tristan PA-C under the supervision of Dr. Hdez. <Andria Hdez - Last Filed: 02/04/19 16:59> History of Present Illness The patient is a 53 year old F [] Past Medical History Allergies sulfamethoxazole [From Bactrim] Allergy (Verified 02/04/19 16:09) Fever and skin rash trimethoprim [From Bactrim] Allergy (Verified 02/04/19 16:09) Fever and skin rash diphenhydramine HCl [From Benadryl] Adverse Reaction (Verified 02/04/19 11:25) climb the rose CLIMB [facility] ROSE lorazepam [From Ativan] Adverse Reaction (Verified 02/04/19 11:25) Climb the rose SHE FEELS LIKE SHE WANTS TO CLIMB THE ROSE prochlorperazine edisylate [From Compazine] Adverse Reaction (Verified 02/04/19 11:25) climb the rose CLIMB [place] RO[place] prochlorperazine maleate [From Compazine] Adverse Reaction (Verified 02/04/19 11:25) climb out of my body CLIMB OUT OF MY BODY promethazine HCl [From Phenergan] Adverse Reaction (Verified 02/04/19 11:25) climb the rose CLIMB [place] ROSE topiramate [From Topamax] Adverse Reaction (Verified 02/04/19 11:25) Other tramadol Adverse Reaction (Verified 02/04/19 11:25) climb the rose feels like going to climb rose - Physical Exam Vital Signs Temp Pulse Resp BP Pulse Ox 97.8 F 96 20 H 110/84 H 94 02/04/19 16:23 02/04/19 16:39 02/04/19 16:23 02/04/19 16:23 02/04/19 16:23 Oxygen Flow Rate (L/min) 2 Oxygen Delivery Method Nasal Cannula Weight: 75.2 kg Body Mass Index (BMI) 27.6 Laboratory Tests Past 24 Hrs 02/04/19 02/04/19 02/04/19 11:41 11:41 11:41 WBC 12.6 H RBC 4.75 Hgb 13.2 Hct 38.8 MCV 81.7 MCH 27.8 MCHC 34.0 RDW Std Deviation 40.2 RDW Coeff of Nicole 13.9 Plt Count 115 L MPV 10.5 Immature Gran % (Auto) 0.400 Neut % (Auto) 80.7 H Lymph % (Auto) 9.5 L Kane % (Auto) 6.6 Eos % (Auto) 2.6 Baso % (Auto) 0.2 Absolute Neuts (auto) 10.2 H Absolute Lymphs (auto) 1.20 Nucleated RBC % 0 PT 13.5 INR 1.1 APTT 28.1 Sodium 138 Potassium 3.9 Chloride 104 Carbon Dioxide 27.0 Anion Gap 7 BUN 10 Creatinine 0.90 Estim Creat Clear Calc 66.54 Est GFR (MDRD) Af Amer 85 Est GFR (MDRD) Non-Af 70 BUN/Creatinine Ratio 11.1 Glucose 128 H Lactic Acid Calcium 8.6 Total Bilirubin 0.90 AST 24 ALT 31 Alkaline Phosphatase 138 H Total Protein 7.5 Albumin 3.4 Globulin 4.1 Albumin/Globulin Ratio 0.8 L Urine Color Urine Clarity Urine pH Ur Specific [place] Urine Protein Urine Glucose (UA) Urine Ketones Urine Occult Blood Urine Nitrite Urine Bilirubin Urine Urobilinogen Ur Leukocyte Esterase Urine RBC Urine WBC Ur Squamous Epith Cells Urine Bacteria Urine Mucus 02/04/19 02/04/19 11:41 12:33 WBC RBC Hgb Hct MCV MCH MCHC RDW Std Deviation RDW Coeff of Nicole Plt Count MPV Immature Gran % (Auto) Neut % (Auto) Lymph % (Auto) Kane % (Auto) Eos % (Auto) Baso % (Auto) Absolute Neuts (auto) Absolute Lymphs (auto) Nucleated RBC % PT INR APTT Sodium Potassium Chloride Carbon Dioxide Anion Gap BUN Creatinine Estim Creat Clear Calc Est GFR (MDRD) Af Amer Est GFR (MDRD) Non-Af BUN/Creatinine Ratio Glucose Lactic Acid 1.2 Calcium Total Bilirubin AST ALT Alkaline Phosphatase Total Protein Albumin Globulin Albumin/Globulin Ratio Urine Color Yellow Urine Clarity Clear Urine pH 6.0 Ur Specific [place] 1.010 Urine Protein Negative Urine Glucose (UA) Normal Urine Ketones Negative Urine Occult Blood 10 H Urine Nitrite Negative Urine Bilirubin Negative Urine Urobilinogen Normal Ur Leukocyte Esterase 25 H Urine RBC 0 SEEN Urine WBC 0 SEEN Ur Squamous Epith Cells 0-5 SEEN Urine Bacteria 0 SEEN Urine Mucus 0 SEEN Assessment/Plan This patient was seen in conjunction with FERNANDA Deng. I have independently interviewed and examined the patient and reviewed pertinent historical, laboratory, and other data. Please refer to FERNANDA Deng note for his patient's presentation, findings, and recommendations. I have reviewed and his note and concur with his documentation CC: Fever, diarrhea, abdominal pain-1 day HPI: 53-year-old female with past medical history of liver transplant in May 2018, follows up with the transplant team in [facility], recently admitted from 25 December to 31 December for abdominal pain and diarrhea and found to have colitis. Patient's management in the hospital was reportedly with IV antibiotics. Her Prograf levels were also found to be elevated. Changes were made to her Prograft doses. Her last repeat Prograf trough was 2.8 on 01/21/19. Patient was told by her transplant team that they were worried about an early rejection is on her liver function test. They had made changes to her Prograf doses.According to her transplant trampoline team coach, Ankush, patient is to be on Prograf 3 mg p.o. twice daily, CellCept to 50 mg p.o. twice daily. Patient comes in with abdominal pain and nausea fever ongoing for 1 day. She reported a fever of 101.3 at home. She denied any runny nose or chest pain or cough. She has been having frequent diarrheas more than 10 times today. No sick contacts. No travel outside the country. No eating in a restaurant or anything unusual. PMHX: Seizure disorder, migraine, anxiety, history of esophageal varices, hiatal hernia PSHx: This post liver transplant FHX: Mother has COPD, father had heart disease SHX: Denies any current use of alcohol, smoking or use of illicit drugs. Physical Exam: Vitals: Temperature was 98.1F, heart rate 113, blood pressure 115/77, respiratory rate was 18, SPO2 is 94% on room air Gen: Looks in some discomfort, not pale, not jaundiced CVS:HS I +II, regular, no murmurs RESP: Clinically clear to auscultation GI: BS present and normal, soft, nontender, no palpable organs EXT:No edema Labs: WBC count of 12.6, hemoglobin 13.2, platelet count 115, INR 1.1, CMP is unremarkable except for elevated ALP which is decreased from previous ASSESSMENT: 1. Fever on unknown etiology, chest x-ray shows no acute intrathoracic pathology, CT of the abdomen is negative for acute findings. Blood cultures, urine cultures are pending 2. Intractable abdominal pain, unclear etiology 3. Acute diarrhea 4. Recent colitis, negative CT abdomen/pelvis 5. Status post liver transplant 6. Seizure disorder 7. Migraines 8. Leukocytosis, likely steroid induced from recent steroid use [facility] contact isolation IV fluids, stool for enteric panel, C. difficile IV cefepime, IV metronidazole Continue on CellCept and tacrolimus per recommendations from transplant team Tacrolimus trough this evening Repeat blood work in a.m. Would have a low threshold to transplant patient if she continues to have symptoms tomorrow or blood work is abnormal health education coordinator - Amber [phone] Transfer line/bedboard line -[phone] Discussed patient's care with patient care coordinator, Ankush Will ask for records from [facility] Code Visit Inpatient E&M: [id number] Init Hosp L2
[2019-02-04] MEDS: 0.9% Normal Saline 1,000 ML 100 ML IV (17:02)
[2019-02-04] MEDS: metroNIDAZOLE 500 MG/100 ML BAG 100 MG IV (18:54)
[2019-02-04] MEDS: Calcium Carb/Vitamin D 1 TABLET Tablet PO (18:55)
[2019-02-04] MEDS: Budesonide Respules 0.5 MG/2 ML AMPUL.NEB. INHALATION (19:00)
[2019-02-04] MEDS: Albuterol 2.5 MG/3 ML VIAL.NEB. INHALATION (19:00)
[2019-02-04] MEDS: 0.9% NaCl Peripheral Flush Adult/Peds IV (19:25)
[2019-02-04] MEDS: Tacrolimus Anhydrous 1 MG Capsule 3 MG PO (21:13)
[2019-02-04] MEDS: carBAMazepine 200 MG Tablet 400 MG PO (21:13)
[2019-02-04] MEDS: clonazePAM 1 MG Tablet 2 MG PO (21:14)
[2019-02-04] MEDS: Mycophenolate Mofetil 250 MG Capsule PO (21:14)
[2019-02-04] MEDS: Famotidine 20 MG Tablet PO (21:15)
[2019-02-04] MEDS: Heparin Injection (Vial) 5,000 UNIT/ML VIAL 5000 UNIT SC (21:16)
[2019-02-04] MEDS: busPIRone 5 MG Tablet PO (21:16)
[2019-02-04] MEDS: Rizatriptan Benzoate 10 MG Tablet PO (21:48)
[2019-02-05] VITALS (13 sets, daily range): BP systolic 98–136; BP diastolic 60–89; PULSE 91–105; RESP 16–20; TEMP 36.8–37; O2SAT 92–97
[2019-02-05] MEDS: HYDROmorphone 1 MG/ML Syringe IV ×5 (03:52→22:47)
[2019-02-05] MEDS: 0.9% Normal Saline 1,000 ML 100 ML IV ×2 (04:39→16:57)
[2019-02-05] MEDS: Rizatriptan Benzoate 10 MG Tablet PO (05:49)
[2019-02-05] MEDS: metroNIDAZOLE 500 MG/100 ML BAG 100 MG IV ×3 (05:50→21:31)
[2019-02-05] MEDS: Heparin Injection (Vial) 5,000 UNIT/ML VIAL 5000 UNIT SC ×3 (05:50→21:33)
[2019-02-05] MEDS: Ondansetron 4 MG/2 ML Vial IV (06:28)
[2019-02-05] MEDS: Budesonide Respules 0.5 MG/2 ML AMPUL.NEB. INHALATION ×2 (06:53→19:05)
[2019-02-05] MEDS: Albuterol 2.5 MG/3 ML VIAL.NEB. INHALATION ×3 (06:53→19:04)
[2019-02-05 07:02] LABS: Absolute Lymphocyte Count 1.09 X10^3/uL (0.83-4.51); Absolute Neutrophil Count 5.8 X10^3/uL (2.0-7.7); Basophil# 0.02 X10^3/uL; Basophil% 0.3 % (0-1); Eosinophil# 0.24 X10^3/uL; Eosinophils% 3.1 % (0-5); Hematocrit 32.3 % (37-47); Hemoglobin 10.9 g/dL (12.0-15.0); Lymphocyte # 1.09 X10^3/ul (4.0); Lymphocyte % 13.9 % (19-41); Mean Corp Hgb Conc 33.7 g/dL (32-36); Mean Corpuscular Hgb 27.9 pg (27.0-32.0); Mean Corpuscular Volume 82.6 fL (81-99); Mean Platelet Vol. 10.2 fl (6.2-12.0); Monocyte# 0.67 X10^3/uL; Monocyte% 8.5 % (0-10); NRBC Flagged by Analyzer 0 % (0-5); Neutrophil % 73.8 % (47-70); Platelet Count 77 K/mm3 (150-450); RBC Distribution Width CV 14.3 % (11.6-14.6); RBC Distribution Width SD 42.4 fl (35.1-43.9); Red Blood Count 3.91 M/mm3 (4.2-5.4); White Blood Count 7.9 K/mm3 (4.4-11.0)
[2019-02-05 07:27] LABS: ALB/GLOB Ratio 0.7 RATIO (0.9-2.4); AST(SGOT) 21 U/L (15-37); Alanine Aminotransfer ALT/SGPT 25 U/L (13-56); Albumin, Serum 2.6 g/dL (3.2-5.0); Alkaline Phosphatase 119 U/L (45-117); Anion Gap 6 (5-15); BUN 8 mg/dL (7-18); Calcium,Total 7.9 mg/dL (8.5-10.1); Chloride 110 mmol/L (98-107); Creatinine, Serum 0.66 mg/dL (0.55-1.02); EST Glomerular Filtration Rate 99 mL/min (>60); Est Glom Filt Rate - Afr Amer 120 mL/min (>60); Estimated Creatinine Clearance 90.74 ml/min; Globulin 3.5 g/dL (2.2-4.2); Glucose 124 mg/dL (74-106); Potassium 3.9 mmol/L (3.5-5.1); Protein, Total 6.1 g/dL (6.4-8.2); Sodium Level 143 mmol/L (136-145)
[2019-02-05] MEDS: 0.9% NaCl Peripheral Flush Adult/Peds IV ×3 (08:52→18:37)
[2019-02-05] MEDS: Citalopram 40 MG TABLET PO (09:00)
[2019-02-05] MEDS: Famotidine 20 MG Tablet PO ×2 (09:00→21:33)
[2019-02-05] MEDS: Tacrolimus Anhydrous 1 MG Capsule 3 MG PO ×2 (09:00→21:33)
[2019-02-05] MEDS: Calcium Carb/Vitamin D 1 TABLET Tablet PO ×2 (09:00→16:57)
[2019-02-05] MEDS: carBAMazepine 200 MG Tablet PO (09:00)
[2019-02-05] MEDS: Mycophenolate Mofetil 250 MG Capsule PO ×2 (09:00→21:33)
[2019-02-05] MEDS: busPIRone 5 MG Tablet PO ×2 (09:00→21:33)
[2019-02-05] MEDS: ENTECAVIR 0.5 MG TABLET PO (09:04)
--- NOTE | 2019-02-05 11:50 | CASEMGMT ---
RN BOOKER Face to Face with patient for initial transition planning/care coordination assessment. RN CM introduced self and role at [facility]. Patient lying in bed, alert and oriented. Patient willing to participate in assessment and is able to answer all questions appropriately. Care providers, pharmacy, and demographics verified. Patient wishes to discharge home, denies need for home health at this time. Patient states she has no further needs or concerns at this time. CM to follow for discharge planning needs that may arise. PCP: Susana WRIGHT Specialists: Transplant Team in [place] Preferred Pharmacy: [facility] Insurance: [facility] Prescription Benefit: yes Living Will/HPOA: yes, significant other, Bulmaro Pratt LNOK: significant other, daughter Living Arrangements: Patient lives with significant other in single story home. Patient able to navigate stairs. Transportation: self/significant other DME/HHC: Patient denies DME or HHC Disposition Plan: Patient to discharge home with family support and follow-up plans in place. Ashly KENNEY, RN, CM
--- NOTE | 2019-02-05 12:38 | PN_ITS ---
<Rosalino Tristan - Last Filed: 02/05/19 12:38> Patient Problems: Active and Suspected Problems Fever (Acute) Lower abdominal pain (Acute) Acute diarrhea (Acute) Intractable abdominal pain (Acute) Subjective: Ongoing severe diffuse abdominal pain, worse BL LQ. Ongoing subjective fever/chills/sweats. + Fever last at 2200 @ 100.3F. No prior hx Cdiff. Ongoing diarrhea. Ongoing nausea without vomiting. - Physical Exam General: Alert, Oriented x3, Cooperative HEENT: Atraumatic, PERRLA, EOMI, Normocephalic Neck: Supple, No JVD, Negative Carotid Bruits Lungs: Clear to auscultation, Normal air movement Cardiovascular: Regular rate, No murmurs Abdomen: Bowel Sounds Present, Soft, Non Tender, Tender - diffusely throughout abdomen. Extremities: No edema, Capillary Refill Less than 3 Seconds Skin: No rashes, No breakdown Musculoskeletal: No Tenderness to Palpation of Joints or Extremities Neurological: Cranial nerves II-XII grossly intact Psych/Mental Status: Normal Affect, Appropriate, Alert and oriented to time, place, person, mood and affect Vital Signs Temp Pulse Resp BP Pulse Ox 98.3 F 96 16 98/60 92 02/05/19 08:38 02/05/19 08:38 02/05/19 08:38 02/05/19 08:38 02/05/19 08:38 Oxygen Flow Rate (L/min) 2 Oxygen Delivery Method Room Air Weight: 167 lb 12.348 oz Body Mass Index (BMI) 27.6 Intake and Output for Last 24 Hours 02/03/19 02/04/19 02/05/19 23:59 23:59 23:59 Intake Total 1456.67 / 1656.67 1303.34 / 1303.34 Output Total 1000 / 1500 500 / 500 Balance 456.67 / 156.67 803.34 / 803.34 Microbiology Past 72 Hours 02/04/19 12:33 Urine Culture - Final Urine, Clean Catch Mixed Gram Pos & Gram Neg Org 02/05/19 03:08 Enteric Bacteriology - Final Stool 02/05/19 03:08 C. difficile DNA Amplification - Final Stool Laboratory Tests Past 24 Hrs 02/04/19 02/04/19 02/05/19 12:33 21:04 06:33 WBC 7.9 RBC 3.91 L Hgb 10.9 L Hct 32.3 L MCV 82.6 MCH 27.9 MCHC 33.7 RDW Std Deviation 42.4 RDW Coeff of Nicole 14.3 Plt Count 77 L MPV 10.2 Immature Gran % (Auto) 0.400 Neut % (Auto) 73.8 H Lymph % (Auto) 13.9 L Fill[place] % (Auto) 8.5 Eos % (Auto) 3.1 Baso % (Auto) 0.3 Absolute Neuts (auto) 5.8 Absolute Lymphs (auto) 1.09 Nucleated RBC % 0 Sodium Potassium Chloride Carbon Dioxide Anion Gap BUN Creatinine Estim Creat Clear Calc Est GFR (MDRD) Af Amer Est GFR (MDRD) Non-Af BUN/Creatinine Ratio Glucose Calcium Total Bilirubin AST ALT Alkaline Phosphatase Total Protein Albumin Globulin Albumin/Globulin Ratio Urine Color Yellow Urine Clarity Clear Urine pH 6.0 Ur Specific Alda 1.010 Urine Protein Negative Urine Glucose (UA) Normal Urine Ketones Negative Urine Occult Blood 10 H Urine Nitrite Negative Urine Bilirubin Negative Urine Urobilinogen Normal Ur Leukocyte Esterase 25 H Urine RBC 0 SEEN Urine WBC 0 SEEN Ur Squamous Epith Cells 0-5 SEEN Urine Bacteria 0 SEEN Urine Mucus 0 SEEN Tacrolimus Pending 02/05/19 06:33 WBC RBC Hgb Hct MCV MCH MCHC RDW Std Deviation RDW Coeff of Nicole Plt Count MPV Immature Gran % (Auto) Neut % (Auto) Lymph % (Auto) Fillmore % (Auto) Eos % (Auto) Baso % (Auto) Absolute Neuts (auto) Absolute Lymphs (auto) Nucleated RBC % Sodium 143 Potassium 3.9 Chloride 110 H Carbon Dioxide 27.0 Anion Gap 6 BUN 8 Creatinine 0.66 Estim Creat Clear Calc 90.74 Est GFR (MDRD) Af Amer 120 Est GFR (MDRD) Non-Af 99 BUN/Creatinine Ratio 12.0 Glucose 124 H Calcium 7.9 L Total Bilirubin 0.50 AST 21 ALT 25 Alkaline Phosphatase 119 H Total Protein 6.1 L Albumin 2.6 L Globulin 3.5 Albumin/Globulin Ratio 0.7 L Urine Color Urine Clarity Urine pH Ur Specific Alda Urine Protein Urine Glucose (UA) Urine Ketones Urine Occult Blood Urine Nitrite Urine Bilirubin Urine Urobilinogen Ur Leukocyte Esterase Urine RBC Urine WBC Ur Squamous Epith Cells Urine Bacteria Urine Mucus Tacrolimus Medical Necessity - Tobacco Use Smoking Status: Never smoker Tobacco Use: Non-smoker Assessment/Plan All Active Problems Acute encephalopathy (Acute) Fever (Acute) Lower abdominal pain (Acute) Acute diarrhea (Acute) Intractable abdominal pain (Acute) Hepatic encephalopathy (Acute) 1. Acute sepsis 2/2 C diff colitis - present on admission. Continue PO vanc and IV flagyl. WBC improved. + fever overnight. Enteric panel negative. lactate negative at admission. Still mildly tachy. 2. Immunocompromised 2/2 s/p Liver transplant, cellcept, prograf - this occurred this past may <1 year ago today. Prograf is pending. Last was mildly decreased at 2.8. Reportedly it was recently at toxic levels with neutropenia requiring dose adjustment and prednisone therapy. Continue prophylactic antivirals. 3. Hx esophageal varices, and hiatal hernia 4. Hx migraine 5. Hx seizure - continue carbamazepine 6. Hx Anxiety - buspar, celexa, klonopin DVT ppx: lovenox DC planning: symptoms not improved. remain here on IV flagyl and PO vanco This patient was seen by Rosalino Tristan PA-C under the supervision of Dr. Carter <Yoni Carter - Last Filed: 02/05/19 13:15> Subjective: Feeling slightly better. Still with abdominal pain and diarrhea. - Physical Exam General: Alert, Cooperative, - - listless. afebrile. non-toxic. HEENT: Atraumatic, Normocephalic Oral: Moist Mucosa, No Gingival or Mucosal Lesions/ Ulcerations Neck: No Nodes, Trachea Midline Lungs: Clear to auscultation, Normal air movement, No rhonchi, No wheeze Cardiovascular: Regular rate, Regular Rhythm, Normal S1, Normal S2, No murmurs Abdomen: Bowel Sounds Present, Soft, Non Tender, Distended - not taut, Tender Extremities: No edema, No Calf Tenderness Skin: No rashes, No breakdown Musculoskeletal: No Tenderness to Palpation of Joints or Extremities Neurological: Coordination normal, Clonus Psych/Mental Status: Normal Affect, Appropriate Vital Signs Temp Pulse Resp BP Pulse Ox 36.8 C 96 16 98/60 92 02/05/19 08:38 02/05/19 08:38 02/05/19 08:38 02/05/19 08:38 02/05/19 08:38 Oxygen Flow Rate (L/min) 2 Oxygen Delivery Method Room Air Weight: 76.1 kg Body Mass Index (BMI) 27.6 Intake and Output for Last 24 Hours 02/03/19 02/04/19 02/05/19 23:59 23:59 23:59 Intake Total 1456.67 / 1656.67 1303.34 / 1303.34 Output Total 1000 / 1500 500 / 500 Balance 456.67 / 156.67 803.34 / 803.34 Microbiology Past 72 Hours 02/04/19 12:33 Urine Culture - Final Urine, Clean Catch Mixed Gram Pos & Gram Neg Org 02/05/19 03:08 Enteric Bacteriology - Final Stool 02/05/19 03:08 C. difficile DNA Amplification - Final Stool Laboratory Tests Past 24 Hrs 02/04/19 02/05/19 02/05/19 21:04 06:33 06:33 WBC 7.9 RBC 3.91 L Hgb 10.9 L Hct 32.3 L MCV 82.6 MCH 27.9 MCHC 33.7 RDW Std Deviation 42.4 RDW Coeff of Nicole 14.3 Plt Count 77 L MPV 10.2 Immature Gran % (Auto) 0.400 Neut % (Auto) 73.8 H Lymph % (Auto) 13.9 L [place] % (Auto) 8.5 Eos % (Auto) 3.1 Baso % (Auto) 0.3 Absolute Neuts (auto) 5.8 Absolute Lymphs (auto) 1.09 Nucleated RBC % 0 Sodium 143 Potassium 3.9 Chloride 110 H Carbon Dioxide 27.0 Anion Gap 6 BUN 8 Creatinine 0.66 Estim Creat Clear Calc 90.74 Est GFR (MDRD) Af Amer 120 Est GFR (MDRD) Non-Af 99 BUN/Creatinine Ratio 12.0 Glucose 124 H Calcium 7.9 L Total Bilirubin 0.50 AST 21 ALT 25 Alkaline Phosphatase 119 H Total Protein 6.1 L Albumin 2.6 L Globulin 3.5 Albumin/Globulin Ratio 0.7 L Tacrolimus Pending Clinical Impression(s) from Imaging Studies Chest X-Ray 02/04/19 12:03 IMPRESSION: No acute intrathoracic process. Stable post surgical change in the upper abdomen. Electronically Signed: Renny Echavarria MD at 12:26 EDT Tel [phone], Service support , Abdomen/Pelvis CT 08/22/19 12:04 IMPRESSION: Stable splenomegaly. Stable chronic fracture of L1 and L2. Unremarkable transplanted liver. No evidence of hydronephrosis on either side. No evidence of ascites fluid. No evidence of significant fecal loading in the colon. Electronically Signed: Renny Echavarria MD at 13:16 EDT Tel [phone], Service support , Assessment/Plan Patient seen and examined independently. Data reviewed. I agree with the above note by the physician editorial assistant. 1. Sepsis: * POA * met 3/4 SIRS criteria (WBC 12.6, HR >100, RR >20) * 2/2 C.diff * continue PO Vanc and IV metronidazole * DC cefepime 2. C. diff colitis, acute * continue vanc and metro * improving * 2/2 recent abx and immunocompromised state 3. s/p Liver X-plant * continue tacrolimus 3 BID, mycophenolate 250 BID * tacrolimus level pending. * spoke with RUBBISH COLLECTOR from transplant center and made her aware of condition * patient to follow up on 02/18 4. VTE prophylaxis: SQ heparin. Code Visit Inpatient E&M: 40572 Init Hosp L3
[2019-02-05] MEDS: carBAMazepine 200 MG Tablet 400 MG PO (21:32)
[2019-02-05] MEDS: clonazePAM 1 MG Tablet 2 MG PO (21:33)
[2019-02-06] VITALS (7 sets, daily range): BP systolic 97–118; BP diastolic 53–65; PULSE 84–97; RESP 14–16; TEMP 36.6–37.4; O2SAT 95–97
[2019-02-06] MEDS: HYDROmorphone 1 MG/ML Syringe IV (03:52)
[2019-02-06] MEDS: 0.9% Normal Saline 1,000 ML 100 ML IV ×2 (03:54→15:56)
[2019-02-06] MEDS: metroNIDAZOLE 500 MG/100 ML BAG 100 MG IV (06:32)
[2019-02-06] MEDS: Heparin Injection (Vial) 5,000 UNIT/ML VIAL 5000 UNIT SC ×3 (06:33→22:24)
[2019-02-06 07:08] LABS: Absolute Lymphocyte Count 0.84 X10^3/uL (0.83-4.51); Absolute Neutrophil Count 2.7 X10^3/uL (2.0-7.7); Basophil# 0.03 X10^3/uL; Basophil% 0.7 % (0-1); Eosinophils% 4.9 % (0-5); Hematocrit 30.6 % (37-47); Hemoglobin 10.2 g/dL (12.0-15.0); Lymphocyte # 0.84 X10^3/ul (4.0); Lymphocyte % 20.5 % (19-41); Mean Corp Hgb Conc 33.3 g/dL (32-36); Mean Corpuscular Hgb 27.6 pg (27.0-32.0); Mean Corpuscular Volume 82.7 fL (81-99); Monocyte# 0.33 X10^3/uL; NRBC Flagged by Analyzer 0 % (0-5); Neutrophil # 2.68 X10^3/uL (2.7-7.7); Neutrophil % 65.4 % (47-70); Platelet Count 65 K/mm3 (150-450); RBC Distribution Width CV 14.3 % (11.6-14.6); RBC Distribution Width SD 41.9 fl (35.1-43.9); White Blood Count 4.1 K/mm3 (4.4-11.0)
[2019-02-06] MEDS: Albuterol 2.5 MG/3 ML VIAL.NEB. INHALATION ×3 (07:15→19:03)
[2019-02-06] MEDS: Budesonide Respules 0.5 MG/2 ML AMPUL.NEB. INHALATION ×2 (07:15→19:03)
--- NOTE | 2019-02-06 08:50 | PCM.PN.HOSP ---
Patient Problems: Active and Suspected Problems Fever (Acute) Lower abdominal pain (Acute) Acute diarrhea (Acute) Intractable abdominal pain (Acute) Subjective: still with abdominal pain. still with diarrhea. Vitals/I&O's: Vital Signs Temp Pulse Resp BP Pulse Ox 36.9 C 84 14 105/63 95 02/06/19 03:55 02/06/19 07:18 02/06/19 07:18 02/06/19 03:55 02/06/19 07:18 Oxygen Flow Rate (L/min) 2 Oxygen Delivery Method Room Air Weight: 75.8 kg Body Mass Index (BMI) 27.6 Intake and Output for Last 24 Hours 02/04/19 02/05/19 02/06/19 23:59 23:59 23:59 Intake Total 1456.67 / 1656.67 3940.00 / 4590.00 1755.00 / 1755.00 Output Total 1000 / 1500 500 / 500 Balance 456.67 / 156.67 3440.00 / 4090.00 1755.00 / 1755.00 General: Alert, No apparent distress HEENT: Atraumatic, Normocephalic Oral: Moist Mucosa, No Gingival or Mucosal Lesions/ Ulcerations Neck: No Nodes, Thyroid Normal Size and Texture Lungs: Clear to auscultation, Normal air movement, No rhonchi, No wheeze, No rales Cardiovascular: Regular rate, Regular Rhythm, Normal S1, Normal S2, No murmurs Abdomen: Bowel Sounds Present, Soft, No Hepato-splenomegaly, Distended - not taut, Tender - mild generalized tenderness Extremities: No edema, No Calf Tenderness Skin: No rashes, No breakdown Psych/Mental Status: Appropriate, Flat Affect Microbiology Past 72 Hours 02/05/19 03:08 Stool C. difficile DNA Amplification - Final Toxigenic C. difficile DNA 02/04/19 12:33 Urine, Clean Catch Urine Culture - Final Mixed Gram Pos & Gram Neg Org 02/05/19 03:08 Stool Enteric Bacteriology - Final Laboratory Results 02/06/19 06:38: WBC 4.1 L, RBC 3.70 L, Hgb 10.2 L, Hct 30.6 L, MCV 82.7, MCH 27.6, MCHC 33.3, RDW Std Deviation 41.9, RDW Coeff of Nicole 14.3, Plt Count 65 L, MPV 10.0, Immature Gran % (Auto) 0.500, Neut % (Auto) 65.4, Lymph % (Auto) 20.5, Stewart % (Auto) 8.0, Eos % (Auto) 4.9, Baso % (Auto) 0.7, Absolute Neuts (auto) 2.7, Absolute Lymphs (auto) 0.84, Nucleated RBC % 0 Current Medications Albuterol Sulfate (Ventolin Aerosols) 2.5 mg INHALATION Q6HWA.RT [facility] Last Admin: 02/06/19 07:15 Dose: 2.5 mg Documented by: Budesonide (Pulmicort Aerosol) 0.5 mg INHALATION Q12H.RT [facility] Last Admin: 02/06/19 07:15 Dose: 0.5 mg Documented by: Buspirone HCl (Buspar) 5 mg PO BID [facility] Last Admin: 02/05/19 21:33 Dose: 5 mg Documented by: Calcium/Vitamin D (Os-Perez 500mg + D) 1 tablet PO BIDCM [facility] Last Admin: 02/05/19 16:57 Dose: 1 tablet Documented by: Carbamazepine (Tegretol) 200 mg PO DAILY [facility] Last Admin: 02/05/19 09:00 Dose: 200 mg Documented by: Carbamazepine (Tegretol) 400 mg PO QHS [facility] Last Admin: 02/05/19 21:32 Dose: 400 mg Documented by: Citalopram Hydrobromide (Celexa) 40 mg PO DAILY [facility] Last Admin: 02/05/19 09:00 Dose: 40 mg Documented by: Clonazepam (Klonopin) 2 mg PO QHS [facility] Last Admin: 02/05/19 21:33 Dose: 2 mg Documented by: Famotidine (Pepcid) 20 mg PO BID [facility] Last Admin: 02/05/19 21:33 Dose: 20 mg Documented by: Heparin Sodium (Porcine) (Heparin Na) 5,000 unit SC Q8 [facility] Last Admin: 02/06/19 06:33 Dose: 5,000 unit Documented by: Hydromorphone HCl (Dilaudid Inj) 0.5 mg IV Q6H PRN PRN Reason: BREAKTHROUGH PAIN (>4/10) Sodium Chloride () 1,000 mls @ 100 mls/hr IV .Q10H [facility] Last Infusion: 02/06/19 07:48 Dose: 100 mls/hr Documented by: Mycophenolate Mofetil (Cellcept) 250 mg PO BID [facility] Last Admin: 02/05/19 21:33 Dose: 250 mg Documented by: Ondansetron HCl (Zofran) 4 mg IV Q8H PRN PRN PRN Reason: NAUSEA/VOMITING Last Admin: 02/05/19 06:28 Dose: 4 mg Documented by: Oxycodone HCl (Oxyir) 5 - 10 mg PO Q4H PRN PRN PRN Reason: SEVERE PAIN (6-10/10) Rizatriptan Benzoate (Maxalt) 10 mg PO DAILY PRN PRN Reason: MIGRAINE SYMPTOMS Last Admin: 02/05/19 05:49 Dose: 10 mg Documented by: Sodium Chloride () 10 - 40 ml IV UD PRN PRN Reason: SALINE FLUSH Last Admin: 02/05/19 18:37 Dose: 10 ml Documented by: Tacrolimus (Prograf) 3 mg PO BID [facility] Last Admin: 02/05/19 21:33 Dose: 3 mg Documented by: Vancomycin HCl () 125 mg PO Q6 [facility] Last Admin: 02/06/19 06:34 Dose: 125 mg Documented by: Medical Necessity - Tobacco Use Smoking Status: Never smoker Tobacco Use: Non-smoker Assessment/Plan All Active Problems Acute encephalopathy (Acute) Fever (Acute) Lower abdominal pain (Acute) Acute diarrhea (Acute) Intractable abdominal pain (Acute) Hepatic encephalopathy (Acute) 1. Sepsis: POA improving met 3/4 SIRS criteria (WBC 12.6, HR >100, RR >20) on admission 2/2 C.diff continue PO Vanc DC metronidazole 2. C. diff colitis, acute ongoing continue vanc improving 2/2 recent abx and immunocompromised state still with abdominal pain, will deescalate narcotics. 3. s/p Liver X-plant continue tacrolimus 3 BID, mycophenolate 250 BID tacrolimus level pending. spoke with STREETCAR REPAIRER from [facility] transplant center and made her aware of condition patient to follow up on 02/18 4. VTE prophylaxis: SQ heparin. Code Visit Inpatient E&M: 45522 Subs Hosp L2
[2019-02-06] MEDS: Tacrolimus Anhydrous 1 MG Capsule 3 MG PO ×2 (09:39→22:27)
[2019-02-06] MEDS: oxyCODONE 5 MG Tablet PO ×4 (09:39→22:12)
[2019-02-06] MEDS: Citalopram 40 MG TABLET PO (09:40)
[2019-02-06] MEDS: busPIRone 5 MG Tablet PO ×2 (09:40→22:26)
[2019-02-06] MEDS: Calcium Carb/Vitamin D 1 TABLET Tablet PO ×2 (09:40→17:53)
[2019-02-06] MEDS: Mycophenolate Mofetil 250 MG Capsule PO ×2 (09:40→22:26)
[2019-02-06] MEDS: Famotidine 20 MG Tablet PO ×2 (09:41→22:27)
[2019-02-06] MEDS: carBAMazepine 200 MG Tablet PO (09:41)
[2019-02-06] MEDS: ENTECAVIR 0.5 MG TABLET PO (09:44)
[2019-02-06] MEDS: carBAMazepine 200 MG Tablet 400 MG PO (22:25)
[2019-02-06] MEDS: clonazePAM 1 MG Tablet 2 MG PO (22:29)
[2019-02-07] MEDS: 0.9% Normal Saline 1,000 ML 100 ML IV (00:31)
[2019-02-07 00:36] VITALS: BP 130/81; PULSE 87; RESP 18; TEMP 36.8; O2SAT 96
[2019-02-07] MEDS: Albuterol 2.5 MG/3 ML VIAL.NEB. INHALATION ×2 (01:10→07:18)
[2019-02-07 01:12] VITALS: PULSE 89; RESP 16
[2019-02-07] MEDS: oxyCODONE 5 MG Tablet PO ×2 (03:28→08:18)
[2019-02-07] MEDS: Heparin Injection (Vial) 5,000 UNIT/ML VIAL 5000 UNIT SC (05:28)
[2019-02-07 05:36] VITALS: BP 118/73; PULSE 87; RESP 18; TEMP 36.6; O2SAT 98
[2019-02-07 05:52] LABS: Absolute Lymphocyte Count 0.96 X10^3/uL (0.83-4.51); Absolute Neutrophil Count 2.6 X10^3/uL (2.0-7.7); Basophil# 0.02 X10^3/uL; Basophil% 0.5 % (0-1); Eosinophils% 4.9 % (0-5); Lymphocyte # 0.96 X10^3/ul (4.0); Lymphocyte % 23.6 % (19-41); Mean Corp Hgb Conc 33.3 g/dL (32-36); Mean Corpuscular Hgb 27.2 pg (27.0-32.0); Mean Corpuscular Volume 81.6 fL (81-99); Mean Platelet Vol. 10.4 fl (6.2-12.0); Monocyte# 0.27 X10^3/uL; Monocyte% 6.7 % (0-10); NRBC Flagged by Analyzer 0 % (0-5); Neutrophil # 2.59 X10^3/uL (2.7-7.7); Neutrophil % 63.8 % (47-70); Platelet Count 61 K/mm3 (150-450); RBC Distribution Width CV 13.7 % (11.6-14.6); RBC Distribution Width SD 40.4 fl (35.1-43.9); Red Blood Count 3.31 M/mm3 (4.2-5.4); White Blood Count 4.1 K/mm3 (4.4-11.0)
[2019-02-07 06:14] LABS: Anion Gap 6 (5-15); BUN 2 mg/dL (7-18); BUN/Creat Ratio 3.7 RATIO (10-20); Calcium,Total 7.9 mg/dL (8.5-10.1); Chloride 112 mmol/L (98-107); Creatinine, Serum 0.54 mg/dL (0.55-1.02); EST Glomerular Filtration Rate 125 mL/min (>60); Est Glom Filt Rate - Afr Amer 152 mL/min (>60); Estimated Creatinine Clearance 110.91 ml/min; Glucose 102 mg/dL (74-106); Potassium 3.4 mmol/L (3.5-5.1); Sodium Level 146 mmol/L (136-145)
[2019-02-07 07:18] VITALS: PULSE 86; RESP 16; O2SAT 95
[2019-02-07] MEDS: Budesonide Respules 0.5 MG/2 ML AMPUL.NEB. INHALATION (07:18)
[2019-02-07] MEDS: Calcium Carb/Vitamin D 1 TABLET Tablet PO (08:10)
[2019-02-07 08:15] VITALS: PULSE 88
--- NOTE | 2019-02-07 08:38 | DCINST_ITS ---
- Discharge Diagnoses Current Active Problems: Current Active and Chronic Problems Fever (Acute) Immunocompromised state due to drug therapy (Chronic) Liver transplant recipient (Chronic) Lower abdominal pain (Acute) Acute diarrhea (Acute) Intractable abdominal pain (Acute) Anxiety (Chronic) You will use the following diet at home:: No restrictions Your food should be the consistency of: Regular Your liquids should be the consistency of: Regular/Thin Discharge Activity: Return to Normal Activity Call your doctor if you observe: Fever of 101 or Higher, - - worsening abdominal pain. worsening diarrhea. Instructions: Sepsis Allergies/Adverse Reactions: Allergies sulfamethoxazole [From Bactrim] Allergy (Verified 02/04/19 16:09) Fever and skin rash trimethoprim [From Bactrim] Allergy (Verified 02/04/19 16:09) Fever and skin rash diphenhydramine HCl [From Benadryl] Adverse Reaction (Verified 02/04/19 11:25) [place] [facility] [place] lorazepam [From Ativan] Adverse Reaction (Verified 02/04/19 11:25) [place] SHE FEELS LIKE SHE WANTS TO [facility]IM[facility] THE [place] prochlorperazine edisylate [From Compazine] Adverse Reaction (Verified 02/04/19 11:25) [place] [place] prochlorperazine maleate [From Compazine] Adverse Reaction (Verified 02/04/19 11:25) climb out of my body CLIMB OUT OF MY BODY promethazine HCl [From Phenergan] Adverse Reaction (Verified 02/04/19 11:25) [place] [place] topiramate [From Topamax] Adverse Reaction (Verified 02/04/19 11:25) Other tramadol Adverse Reaction (Verified 02/04/19 11:25) [place] feels like going to climb rose Medications to take at Discharge Sumatriptan Succinate [Imitrex] 100 mg PO BID PRN PRN 01/31/15 Citalopram [Celexa] 40 mg PO DAILY 07/29/16 Clonazepam [Klonopin] 2 mg PO QHS 08/19/17 Albuterol Inhaler [Ventolin Hfa] 1 - 2 puff INHALATION Q4H PRN PRN 02/08/18 Mometasone/Formoterol [Dulera 200 Mcg/5 Mcg Inhaler] 2 puff IN QHS 02/08/18 Entecavir [Baraclude] 0.5 mg PO DAILY 12/25/18 busPIRone [Buspar] 5 mg PO BID 12/25/18 Calcium Carbonate/Vitamin D3 [Calcium 500-Vit D3 200 Tablet] 1 tab PO BID 02/04/19 Carbamazepine 200 mg PO DAILY 02/04/19 Carbamazepine 400 mg PO QHS 02/04/19 Famotidine 20 mg PO BID 02/04/19 Mycophenolate Mofetil 250 mg PO BID 02/04/19 Tacrolimus 3 mg PO BID 02/04/19 Oxycodone [Oxyir] 5 mg PO Q6H PRN 3 Days #12 tablet 02/07/19 Vancomcyin 125mg/5mL PO Liquid 125 mg PO Q6 #40 po.syringe 02/07/19 The following prescriptions were given: Oxycodone [Oxyir] 5 mg PO Q6H PRN 3 Days #12 tablet PRN Reason: Severe Pain (6-10/10) Transmission Status: Sent to [facility] #30 Vancomcyin 125mg/5mL PO Liquid 125 mg PO Q6 #40 po.syringe Transmission Status: Pending to [facility] #30 Primary Care Physician: Anna Meza NP-C [Primary Care Provider] - Within 1 Week Test Results: Test results from this visit will be discussed in further detail at your follow- up appointment, if applicable. Please Follow Up With: UC transplant When: 02/18/19 Proposed Discharge Date: 02/07/19
--- NOTE | 2019-02-07 08:41 | DS.PCM_ITS ---
Discharge Date and Diagnosis - Problem List Patient Problems: Active and Suspected Problems Clostridium difficile colitis (Acute) Sepsis (Acute) Date of Admission: 02/04/19 Date of Discharge: 02/07/19 - Primary Discharge Diagnosis Active and Suspected Problems Clostridium difficile colitis (Acute) Sepsis (Acute) - Secondary Discharge Diagnosis Chronic Problems Immunocompromised state due to drug therapy (Chronic) Liver transplant recipient (Chronic) Anxiety (Chronic) MARMOLEJO (nonalcoholic steatohepatitis) (Chronic) Migraine (Chronic) Asthma (Chronic) Hiatal hernia (Chronic) Esophageal varices (Chronic) numerous banding Seizures (Chronic) last known 11/2016 Hospital Course and Treatment Imaging Results: Clinical Impression(s) from Imaging Studies Chest X-Ray 02/04/19 12:03 IMPRESSION: No acute intrathoracic process. Stable post surgical change in the upper abdomen. Electronically Signed: Renny Echavarria MD at 12:26 EDT Tel [phone], Service support , Abdomen/Pelvis CT 02/04/19 12:04 IMPRESSION: Stable splenomegaly. Stable chronic fracture of L1 and L2. Unremarkable transplanted liver. No evidence of hydronephrosis on either side. No evidence of ascites fluid. No evidence of significant fecal loading in the colon. Electronically Signed: Renny Echavarria MD at 13:16 EDT Tel [phone], Service support , Operations: None Procedures: None Summary of Care Provided: The patient is a 53 year old F presents with fever. 1. Sepsis: * POA * improving * met 3/4 SIRS criteria (WBC 12.6, HR >100, RR >20) on admission * 2/2 C.diff * continue PO Vanc for 10 more days 2. C. diff colitis, acute * improving * continue vanc * improving * 2/2 recent abx and immunocompromised state * still with abdominal pain, will deescalate narcotics. 3. s/p Liver X-plant * continue tacrolimus 3 BID, mycophenolate 250 BID * tacrolimus level pending. * spoke with WIRE DRAWING MACHINE OPERATOR from transplant center and made her aware of condition * patient to follow up on 02/18[] Patient Problems: Active and Suspected Problems Clostridium difficile colitis (Acute) Sepsis (Acute) Subjective: Still with abdominal pain, but improved. No further BM. Tolerating PO, though not eating complete trays. - Physical Exam General: Alert, No apparent distress HEENT: Atraumatic, Normocephalic Oral: Moist Mucosa, No Gingival or Mucosal Lesions/ Ulcerations Neck: No Nodes, Thyroid Normal Size and Texture Lungs: Clear to auscultation, Normal air movement, No rhonchi, No wheeze Cardiovascular: Regular rate, Regular Rhythm, Normal S1, Normal S2, No murmurs Abdomen: Bowel Sounds Present, Soft, Non-Distended, Tender Extremities: No edema, No Calf Tenderness Psych/Mental Status: Normal Affect, Appropriate Vital Signs Temp Pulse Resp BP Pulse Ox 36.6 C 87 18 118/73 98 02/07/19 05:36 02/07/19 05:36 02/07/19 05:36 02/07/19 05:36 02/07/19 05:36 Oxygen Flow Rate (L/min) 2 Oxygen Delivery Method Room Air Weight: 78.6 kg Body Mass Index (BMI) 27.6 Intake and Output for Last 24 Hours 02/05/19 02/06/19 02/07/19 23:59 23:59 23:59 Intake Total 3940.00 / 4590.00 3401.66 / 3801.66 1240 / 1240 Output Total 500 / 500 1100 / 1100 550 / 550 Balance 3440.00 / 4090.00 2301.66 / 2701.66 690 / 690 Microbiology Past 72 Hours 02/04/19 11:41 Blood Culture - Preliminary Blood Culture (Wb) - Anticubital Right No growth in 48 hours. 02/04/19 12:20 Blood Culture - Preliminary Blood Culture (Wb) - Anticubital Left No growth in 48 hours. 02/05/19 03:08 C. difficile DNA Amplification - Final Stool Toxigenic C. difficile DNA 02/04/19 12:33 Urine Culture - Final Urine, Clean Catch Mixed Gram Pos & Gram Neg Org 02/05/19 03:08 Enteric Bacteriology - Final Stool Laboratory Tests Past 24 Hrs 02/07/19 02/07/19 05:20 05:20 WBC 4.1 L RBC 3.31 L Hgb 9.0 L Hct 27.0 L MCV 81.6 MCH 27.2 MCHC 33.3 RDW Std Deviation 40.4 RDW Coeff of Nicole 13.7 Plt Count 61 L MPV 10.4 Immature Gran % (Auto) 0.500 Neut % (Auto) 63.8 Lymph % (Auto) 23.6 Avery % (Auto) 6.7 Eos % (Auto) 4.9 Baso % (Auto) 0.5 Absolute Neuts (auto) 2.6 Absolute Lymphs (auto) 0.96 Nucleated RBC % 0 Sodium 146 H Potassium 3.4 L Chloride 112 H Carbon Dioxide 28.0 Anion Gap 6 BUN 2 L Creatinine 0.54 L Estim Creat Clear Calc 110.91 Est GFR (MDRD) Af Amer 152 Est GFR (MDRD) Non-Af 125 BUN/Creatinine Ratio 3.7 L Glucose 102 Calcium 7.9 L Discharge Diet: No Restrictions Discharge Activity: Return to Normal Activity Call your doctor if you observe: Fever of 101 or Higher, - - worsening abdominal pain. worsening diarrhea. Home Medications: Medications to take at Discharge Sumatriptan Succinate [Imitrex] 100 mg PO BID PRN PRN 01/31/15 Citalopram [Celexa] 40 mg PO DAILY 07/29/16 Clonazepam [Klonopin] 2 mg PO QHS 08/19/17 Albuterol Inhaler [Ventolin Hfa] 1 - 2 puff INHALATION Q4H PRN PRN 02/08/18 Mometasone/Formoterol [Dulera 200 Mcg/5 Mcg Inhaler] 2 puff IN QHS 02/08/18 Entecavir [Baraclude] 0.5 mg PO DAILY 12/25/18 busPIRone [Buspar] 5 mg PO BID 12/25/18 Calcium Carbonate/Vitamin D3 [Calcium 500-Vit D3 200 Tablet] 1 tab PO BID 02/04/19 Carbamazepine 200 mg PO DAILY 02/04/19 Carbamazepine 400 mg PO QHS 02/04/19 Famotidine 20 mg PO BID 02/04/19 Mycophenolate Mofetil 250 mg PO BID 02/04/19 Tacrolimus 3 mg PO BID 02/04/19 Oxycodone [Oxyir] 5 mg PO Q6H PRN 3 Days #12 tablet 02/07/19 Vancomcyin 125mg/5mL PO Liquid 125 mg PO Q6 #40 po.syringe 02/07/19 Following Prescrptions Were Given to Patient: Oxycodone [Oxyir] 5 mg PO Q6H PRN 3 Days #12 tablet PRN Reason: Severe Pain (-03/25) Transmission Status: Sent to [facility] #30 Vancomcyin 125mg/5mL PO Liquid 125 mg PO Q6 #40 po.syringe Transmission Status: Pending to [facility] #30 Primary Care Physician: Anna Meza NP-C [Primary Care Provider] - Within 1 Week Please Follow Up With: UC transplant When: 02/18/19 Patient Instructions: Sepsis Disposition: Home Minutes spent on discharge:: 32 Patient Condition:: Good Medical Necessity - Tobacco Use Smoking Status: Never smoker Tobacco Use: Non-smoker Meaningful Use Info Meaningful Use Diagnoses (Choose all that apply): None applicable Code Visit Inpatient E&M: 28360 Disch Hosp
[2019-02-07 09:27] VITALS: BP 121/76; PULSE 84; RESP 16; TEMP 36.7; O2SAT 99
--- NOTE | 2019-02-08 15:38 | CASEMGMT ---
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 No answer, voice message left with return contact information.
[2019-02-10 09:45] LABS: Tacrolimus (FK506) 1.9 ng/mL (2.0-20.0)
== END 2019-02-07 09:35 | disposition home or self-care (01) | DRG 872 ==
LOC: ED 15:09 → MS3 15:59
PROVIDERS: Physician Assistant; Admitting Provider Internal Medicine; Emergency Provider Emergency Medicine; Family Provider Nurse Practitioner Primary Care; PCP Nurse Practitioner Primary Care; Referring Provider Internal Medicine
DX: A41.89 Other specified sepsis (principal); A04.72 Enterocolitis due to Clostridium difficile, not specified as recurrent; Z94.4 Liver transplant status; I85.00 Esophageal varices without bleeding; G40.909 Epilepsy, unspecified, not intractable, without status epilepticus; J45.909 Unspecified asthma, uncomplicated; F41.9 Anxiety disorder, unspecified; Z79.899 Other long term (current) drug therapy
CPT/HCPCS: 36415; 71045; 74176; 80048; 80053; 80197; 81001; 83605; 85025; 85610; 85730; 87040; 87086; 87088; 87493; 87506; 94640; 99285; J7030; A4216; J2405

== ENCOUNTER 2019-02-08 13:00 | Emergency (ER) | payer MEDICARE, MEDICAID, SELFPAY ==
[2019-02-04 16:31] VITALS: BMI 27.6
[2019-02-08] VITALS (8 sets, daily range): BP systolic 108–129; BP diastolic 69–87; PULSE 82–97; RESP 13–18; TEMP 36.6–37.1; O2SAT 94–98; BMI 28.8
--- NOTE | 2019-02-08 14:09 | RAD_ITS ---
STUDY: X-RAY CHEST REASON FOR EXAM: Female, 53 years old. Cough and chest congestion. Asthma. TECHNIQUE: Single AP portable view of the chest. COMPARISON: Comparison is made with prior study dated February 04, 2019. FINDINGS: EKG electrodes are seen. The lungs are clear and expanded. There is no demonstrated pleural abnormality. Normal size heart. Normal mediastinum and erin. Normal visualized pulmonary arteries. Normal visualized aortic arch and descending thoracic aorta. Normal visualized thoracic spine. Normal visualized ribs, clavicles, and shoulders. Surgical clips are seen in the epigastric region. RAD/Chest 1 View (Portable) IMPRESSION: No acute abnormality is seen. Electronically Signed: Terrance Kim, at 14:42 EDT , Service support ,
--- NOTE | 2019-02-08 14:09 | EKG12_ITS ---
Test Reason : DIARRHEA Blood Pressure : / mmHG Vent. Rate : 080 BPM Atrial Rate : 080 BPM P-R Int : 152 ms QRS Dur : 084 ms QT Int : 376 ms P-R-T Axes : 012 -16 021 degrees QTc Int : 433 ms Normal sinus rhythm Inferior infarct (cited on or before 25-DEC-2018), age undetermined Poor R-Wave Progression Possible Anterior infarct (cited on or before 25-DEC-2018), age undetermined Abnormal ECG Confirmed by TOSIN BROOKS, SCOTT ([id number]), film or videotape editor TADEO NEWTON ([id number]) on 02/10/2019 11:52:07 AM Referred By: SAM Confirmed By:SCOTT LEAHY MD
--- NOTE | 2019-02-08 14:36 | ED.DCSUM_ITS ---
- ER Visit Summary Date of Service: 02/08/19 Chief Complaint: Diarrhea History of Present Illness: The patient is a 53 F who has a history of being a liver transplant patient. She was recently admitted to the hospital from the - here at [place] and diagnosed with C. difficile colitis. She is on or al vancomycin. She states that today she woke up with fever of 101 orally and before that her last fever was sometime on Friday while she was in the hospital. She notes that she has been coughing more. She had an x-ray on the of her chest that was negative. She states that yesterday she had several loose bowel movements but had improved. She went home and was sleeping. Last evening and through the night she states the amount of diarrhea has picked up significantly. She notes abdominal pain. Physical Examination: Afebrile vital signs are stable Gen: Well-nourished well-developed Head: Normocephalic atraumatic Eyes: Perrl EOMI ENT: TMs clear no rhinorrhea moist mucous membranes Neck: Supple no lymphadenopathy no JVD nontender CVS: Regular rate rhythm no murmurs normal S1-S2 Respiratory: No distress clear to auscultation bilaterally chest nontender Abdomen: Soft nontender nondistended normal bowel sounds no masses Back: Nontender Extremity: Nontender no edema Skin: Normal color no rash Neuro: alert orientated ?3 CN II-XII intact normal strength sensation Psych: Normal affect normal mood Test Results: White count is 4.8. Hemoglobin is 10.8. Potassium 3.2. Glucose 84. Normal BUN/creatinine. Lactic acid is normal. Urinalysis is normal. Liver enzymes are normal INR 1.2. Chest x-ray showed no infiltrate. Emergency Department Course and Treatment: IV fluids. She also received morphine and Zofran. Later she received a dose of Bentyl. Patient does not have a fever here she has normal vital signs and except for her potassium basically normal blood work. He gets too early to call 5 days of vancomycin therapy treatment failure. Encourage her to continue her medications and follow-up return if worsening or concerns Impression: 1. C. difficile colitis 2. Bronchitis This note was generated with [employer]Contact[employer] software. It may contain incorrect words, spelling, and punctuation that were not noted in review of the chart prior to signing ED Disposition - Plan for ED Patient: Disposition: Home or Assisted Living Instructions: Clostridium difficile Infection Referrals: Anna Meza NP-C [Primary Care Provider] - As soon as possible
[2019-02-08 14:47] LABS: Absolute Lymphocyte Count 0.85 X10^3/uL (0.83-4.51); Absolute Neutrophil Count 3.3 X10^3/uL (2.0-7.7); Basophil# 0.02 X10^3/uL; Basophil% 0.4 % (0-1); Eosinophil# 0.22 X10^3/uL; Eosinophils% 4.6 % (0-5); Hematocrit 31.7 % (37-47); Hemoglobin 10.8 g/dL (12.0-15.0); Lymphocyte # 0.85 X10^3/ul (4.0); Lymphocyte % 17.8 % (19-41); Mean Corp Hgb Conc 34.1 g/dL (32-36); Mean Corpuscular Hgb 27.7 pg (27.0-32.0); Mean Corpuscular Volume 81.3 fL (81-99); Mean Platelet Vol. 10.2 fl (6.2-12.0); Monocyte# 0.32 X10^3/uL; Monocyte% 6.7 % (0-10); NRBC Flagged by Analyzer 0 % (0-5); Neutrophil # 3.34 X10^3/uL (2.7-7.7); Neutrophil % 70.1 % (47-70); Platelet Count 86 K/mm3 (150-450); RBC Distribution Width CV 13.8 % (11.6-14.6); RBC Distribution Width SD 39.8 fl (35.1-43.9); White Blood Count 4.8 K/mm3 (4.4-11.0)
[2019-02-08 14:56] LABS: Prothrombin Time (Protime)PT. 13.2 SECONDS (11.7-14.9)
[2019-02-08 14:57] LABS: Partial Thromboplast Time 28.3 Seconds (24.1-36.2)
[2019-02-08 15:03] LABS: ALB/GLOB Ratio 0.8 RATIO (0.9-2.4); AST(SGOT) 20 U/L (15-37); Alanine Aminotransfer ALT/SGPT 22 U/L (13-56); Albumin, Serum 2.8 g/dL (3.2-5.0); Alkaline Phosphatase 118 U/L (45-117); Anion Gap 8 (5-15); BUN 3 mg/dL (7-18); BUN/Creat Ratio 4.7 RATIO (10-20); Calcium,Total 8.3 mg/dL (8.5-10.1); Chloride 108 mmol/L (98-107); Creatinine, Serum 0.64 mg/dL (0.55-1.02); EST Glomerular Filtration Rate 103 mL/min (>60); Est Glom Filt Rate - Afr Amer 125 mL/min (>60); Estimated Creatinine Clearance 93.58 ml/min; Globulin 3.6 g/dL (2.2-4.2); Glucose 84 mg/dL (74-106); Potassium 3.2 mmol/L (3.5-5.1); Protein, Total 6.4 g/dL (6.4-8.2); Sodium Level 144 mmol/L (136-145)
[2019-02-08] MEDS: Morphine 4 MG/ML Syringe IV (15:08)
[2019-02-08] MEDS: Ondansetron 4 MG/2 ML Vial IV (15:08)
[2019-02-08] MEDS: 0.9% Normal Saline 1,000 ML 999 ML IV ×2 (15:09→16:18)
[2019-02-08 15:17] LABS: Lactic Acid 1.2 mmol/L (0.4-2.0)
[2019-02-08 15:55] LABS: Bacteria 0 SEEN /hpf (None Seen); Mucous, Urine 0 SEEN /hpf (<or=2+); Red Blood Cells-Urine 0 SEEN /hpf (0-5); White Blood Cells 0 SEEN /hpf (0-5)
[2019-02-08 15:57] LABS: Color, Urine Yellow (Yellow); Glucose, Dipstick Normal (Normal); Ketone-Dipstick Negative (Negative); Leukocyte Esterase-Dipstick Negative /ul (Negative); Nitrite-Dipstick Negative (Negative); Occult Blood-Urine Negative /ul (Negative); Protein-Dipstick Negative (Negative); Urine Bilirubin Dipstick Negative (Negative); Urine Clarity Clear (Clear); Urine Urobilinogen Normal (Normal)
[2019-02-08 16:04] LABS: Squamous Epithelial Cells - UA 0-5 SEEN /hpf (5-10)
[2019-02-08] MEDS: Ipratropium/Albuterol Sulfate 3 ML AMPUL.NEB INHALATION (16:06)
[2019-02-08] MEDS: Dicyclomine 20 MG/2 ML Vial IM (16:36)
== END 2019-02-08 17:24 | disposition home or self-care (01) ==
PROVIDERS: Emergency Provider Emergency Medicine; Family Provider Nurse Practitioner Primary Care; PCP Nurse Practitioner Primary Care
DX: A04.72 Enterocolitis due to Clostridium difficile, not specified as recurrent (principal); J40 Bronchitis, not specified as acute or chronic; K75.81 Nonalcoholic steatohepatitis (NASH); G40.909 Epilepsy, unspecified, not intractable, without status epilepticus; Z94.4 Liver transplant status; Z79.899 Other long term (current) drug therapy
CPT/HCPCS: 71045; 80053; 81001; 83605; 85025; 85610; 85730; 87040; 87086; 87088; 93005; 94640; 96361; 96372; 96374; 96375; 99285; J7030; A4216; J2405

== ENCOUNTER 2019-03-03 16:11 | Emergency (ER) | payer MEDICARE, SELFPAY ==
[2019-02-08 13:01] VITALS: BMI 28.8
[2019-03-03 16:12] VITALS: BP 123/74; PULSE 97; RESP 16; TEMP 36.4; O2SAT 95; BMI 26.6
--- NOTE | 2019-03-03 16:39 | RAD_ITS ---
HISTORY:COUGH AND COLD SINCE FRIDAY COUGH AND COLD SINCE FRIDAY EXAM: XR Chest 2 Views: COMPARISON: January 19, 2019 FINDINGS: # of images incl. paperwork: 2 LINES/DEVICES: None. LUNGS: Radiographically clear. No consolidation, edema or effusion. No pneumothorax. MEDIASTINUM AND CARDIOVASCULAR STRUCTURES: Cardiac silhouette not enlarged. BONES AND SOFT TISSUES: Surgical nicole in the epigastrium in the right upper quadrant RAD/Chest PA and Lateral IMPRESSION: No radiographic evidence of acute cardiopulmonary disease. at 1714 Reported and signed by: Tarsha Watkins DO Electronically Signed: Tarsha Watkins DO at 17:13 EDT Tel , Service support ,
--- NOTE | 2019-03-03 16:40 | ED.VIS.GEN ---
History of Present Illness Chief Complaint: Cold Sx Detail of Chief Complaint: Cough and cold symptoms Informant: Patient Onset: Days Current Severity: Moderate Maximum Severity: Moderate Narrative: Patient has significant history for liver transplant this past winter. Patient states she did have an episode of decreased white blood cells from her rejection meds leading to C. difficile. She now presents with cough and congestion after attending the [facility] last week. Symptoms started 4 days ago. She states on day 1 she had a temperature of 100, but no other elevated temperature. She has dry cough with head congestion and mild sore throat. She does have history of asthma and has been using her albuterol inhaler every 4 hours. Past Medical History - Allergies and Home Meds Allergies/Adverse Reactions: Allergies sulfamethoxazole [From Bactrim] Allergy (Verified 02/08/19 13:03) Fever and skin rash trimethoprim [From Bactrim] Allergy (Verified 02/08/19 13:03) Fever and skin rash diphenhydramine HCl [From Benadryl] Adverse Reaction (Verified 02/08/19 13:03) [place] [facility] [place] lorazepam [From Ativan] Adverse Reaction (Verified 02/08/19 13:03) [facility] SHE FEELS LIKE SHE WANTS TO CLIM[facility] THE [place] prochlorperazine edisylate [From Compazine] Adverse Reaction (Verified 02/08/19 13:03) [place] [place] prochlorperazine maleate [From Compazine] Adverse Reaction (Verified 02/08/19 13:03) climb out of my body CLIMB OUT OF MY BODY promethazine HCl [From Phenergan] Adverse Reaction (Verified 02/08/19 13:03) [place] topiramate [From Topamax] Adverse Reaction (Verified 02/08/19 13:03) Other tramadol Adverse Reaction (Verified 02/08/19 13:03) [place] feels like going to climb [place] Primary Care Physician: Anna Meza NP-C [Primary Care Provider] - Prior records reviewed: Yes Past Medical History: - - Reviewed Surgical History: cholecystectomy, hysterectomy, total knee arthroplasty, - - cholecystectomy, partial hysterectomy, right shoulder replacement secondary to fall secondary to seizure, bilateral knee arthroscopic, liver transplant Smoking Status: Never smoker - Family History Maternal Family History: Reports: COPD Paternal Family History: Reports: Heart Disease - CHF, - - Liver disease, alcoholism Sibling Family History: Reports: Heart Disease, Stroke, - - cirrhosis Review of Systems General: Denies: Chills, Fever Eyes: Denies: Visual changes - bilaterally ENT: Reports: Sore throat, - - Head congestion. Denies: Bilateral ear pain Cardiovascular: Denies: Chest pain Respiratory: Reports: Dyspnea, Cough. Denies: Sputum Gastrointestinal: Denies: Abdominal pain, Nausea, Vomiting, Diarrhea Musculoskeletal: Reports: Myalgias Skin: Denies: Rash Neurological: Denies: Headache Psych: Denies: Depression, Anxiety Hematologic: Denies: Easy bruising Allergy: Denies: Uticaria Physical Exam Vital Signs/Narrative: Vital Signs Temp Pulse Resp BP Pulse Ox 03/03/19 16:12 97.5 F L 97 16 123/74 H 95 Inital Vital Signs reviewed: Yes General: Well nourished, Well developed Eyes: Perrl, EOMI ENT: Moist mucous membranes, TM's clear - Area of erythema on the left posterior outer ear canal. This is more consistent with local trauma than infection., Nasal congestion, - - Posterior pharynx with mild cobblestoning and drainage. Uvula midline. Neck: Supple - Bilateral cervical lymphadenopathy. Cardiovascular: Regular rate, Regular rhythm Respiratory: No distress, CTA bilaterally Abdomen: Soft, Nontender, Nondistended Extremities: Nontender Skin: Normal color, No rash Neurological: Alert, Oriented x3 Psychological: Normal affect Diagnostic/Tx/Re-eval Impressions Chest X-Ray 03/03/19 16:39 IMPRESSION: No radiographic evidence of acute cardiopulmonary disease. at 1714 Reported and signed by: Tarsha Watkins DO Electronically Signed: Tarsha Watkins DO at 17:13 EDT Tel , Service support , 03/03/19 16:39 Chest PA and Lateral [RAD] Stat Laboratory Results 03/03/19 03/03/19 16:50 16:50 WBC 6.2 RBC 4.68 Hgb 12.6 Hct 38.4 MCV 82.1 MCH 26.9 L MCHC 32.8 RDW Std Deviation 44.6 H RDW Coeff of Nicole 15.3 H Plt Count 79 L MPV 9.7 Immature Gran % (Auto) 0.300 Neut % (Auto) 73.9 H Lymph % (Auto) 16.4 L [place] % (Auto) 7.6 Eos % (Auto) 1.5 Baso % (Auto) 0.3 Absolute Neuts (auto) 4.5 Absolute Lymphs (auto) 1.01 Nucleated RBC % 0 Sodium 139 Potassium 4.5 Chloride 107 Carbon Dioxide 28.0 Anion Gap 4 L BUN 7 Creatinine 0.83 Estim Creat Clear Calc 72.16 Est GFR (MDRD) Af Amer 93 Est GFR (MDRD) Non-Af 77 BUN/Creatinine Ratio 8.4 L Glucose 139 H Calcium 8.6 Total Bilirubin 0.60 Direct Bilirubin 0.21 AST 47 H ALT 45 Alkaline Phosphatase 174 H Total Protein 7.7 Albumin 3.6 Globulin 4.1 - Medical Decision Making Patient was given Hycodan and Afrin. Test results are discussed with her. Her white count is normal. Her AST and alk phos are elevated, similar to values were in the spring. Because of her immunosuppression at this time she will be covered with doxycycline. I specifically chose this antibiotic due to its decreased propensity to cause C. difficile. Patient will also be given prescription for Hycodan. ED Disposition - Plan for ED Patient: Disposition: Home or Assisted Living Diagnosis: Bronchitis Instructions: BRONCHITIS, Antiobiotic Treatment (Adult) Prescriptions: Doxycycline 100 mg PO BID #20 capsule Hydrocodone/Homatropine [Hycodan] 5 ml PO 4X/DAY PRN PRN #100 ml PRN Reason: Cough Referrals: Anna Meza, PROPERTY CONTROLLER-C [Primary Care Provider] - 3-5 Days if not improving
[2019-03-03] MEDS: Oxymetazoline 0.05% 1 SPRAY SPRAY.BTL 2 SPRAY NASAL (16:52)
[2019-03-03 16:54] LABS: Absolute Lymphocyte Count 1.01 X10^3/uL (0.83-4.51); Absolute Neutrophil Count 4.5 X10^3/uL (2.0-7.7); Basophil# 0.02 X10^3/uL; Basophil% 0.3 % (0-1); Eosinophil# 0.09 X10^3/uL; Eosinophils% 1.5 % (0-5); Hematocrit 38.4 % (37-47); Hemoglobin 12.6 g/dL (12.0-15.0); Lymphocyte # 1.01 X10^3/ul (4.0); Lymphocyte % 16.4 % (19-41); Mean Corp Hgb Conc 32.8 g/dL (32-36); Mean Corpuscular Hgb 26.9 pg (27.0-32.0); Mean Corpuscular Volume 82.1 fL (81-99); Mean Platelet Vol. 9.7 fl (6.2-12.0); Monocyte# 0.47 X10^3/uL; Monocyte% 7.6 % (0-10); NRBC Flagged by Analyzer 0 % (0-5); Neutrophil # 4.54 X10^3/uL (2.7-7.7); Neutrophil % 73.9 % (47-70); Platelet Count 79 K/mm3 (150-450); RBC Distribution Width CV 15.3 % (11.6-14.6); RBC Distribution Width SD 44.6 fl (35.1-43.9); Red Blood Count 4.68 M/mm3 (4.2-5.4); White Blood Count 6.2 K/mm3 (4.4-11.0)
[2019-03-03] MEDS: 0.9% Normal Saline 1,000 ML 150 ML IV (17:02)
[2019-03-03 17:14] LABS: AST(SGOT) 47 U/L (15-37); Alanine Aminotransfer ALT/SGPT 45 U/L (13-56); Albumin, Serum 3.6 g/dL (3.2-5.0); Alkaline Phosphatase 174 U/L (45-117); Anion Gap 4 (5-15); BUN 7 mg/dL (7-18); BUN/Creat Ratio 8.4 RATIO (10-20); Bilirubin, Direct 0.21 mg/dL (0.00-0.30); Calcium,Total 8.6 mg/dL (8.5-10.1); Chloride 107 mmol/L (98-107); Creatinine, Serum 0.83 mg/dL (0.55-1.02); EST Glomerular Filtration Rate 77 mL/min (>60); Est Glom Filt Rate - Afr Amer 93 mL/min (>60); Estimated Creatinine Clearance 72.16 ml/min; Globulin 4.1 g/dL (2.2-4.2); Glucose 139 mg/dL (74-106); Potassium 4.5 mmol/L (3.5-5.1); Protein, Total 7.7 g/dL (6.4-8.2); Sodium Level 139 mmol/L (136-145)
[2019-03-03] MEDS: Doxycycline 100 MG CAPSULE PO (18:05)
== END 2019-03-03 18:20 | disposition home or self-care (01) ==
PROVIDERS: Emergency Provider Emergency Medicine; Family Provider Nurse Practitioner Primary Care; PCP Nurse Practitioner Primary Care
DX: J45.909 Unspecified asthma, uncomplicated (principal); Z86.19 Personal history of other infectious and parasitic diseases; Z94.4 Liver transplant status; Z79.82 Long term (current) use of aspirin; Z79.899 Other long term (current) drug therapy
CPT/HCPCS: 71046; 80048; 80076; 85025; 96360; 96361; 99284; J7030; A4216

== ENCOUNTER 2019-03-15 11:44 | Outpatient (RCR) | payer MEDICARE, SELFPAY ==
[2019-02-08 13:01] VITALS: BMI 28.8
[2019-03-15 12:31] LABS: Absolute Lymphocyte Count 1.58 X10^3/uL (0.83-4.51); Basophil# 0.05 X10^3/uL; Basophil% 0.8 % (0-1); Eosinophil# 0.05 X10^3/uL; Eosinophils% 0.8 % (0-5); Hematocrit 39.7 % (37-47); Hemoglobin 12.9 g/dL (12.0-15.0); Lymphocyte # 1.58 X10^3/ul (4.0); Lymphocyte % 25.4 % (19-41); Mean Corp Hgb Conc 32.5 g/dL (32-36); Mean Corpuscular Hgb 26.8 pg (27.0-32.0); Mean Corpuscular Volume 82.4 fL (81-99); Mean Platelet Vol. 10.6 fl (6.2-12.0); Monocyte# 0.48 X10^3/uL; Monocyte% 7.7 % (0-10); NRBC Flagged by Analyzer 0 % (0-5); Neutrophil # 4.02 X10^3/uL (2.7-7.7); Neutrophil % 64.8 % (47-70); Platelet Count 88 K/mm3 (150-450); RBC Distribution Width CV 15.3 % (11.6-14.6); RBC Distribution Width SD 45.8 fl (35.1-43.9); Red Blood Count 4.82 M/mm3 (4.2-5.4); White Blood Count 6.2 K/mm3 (4.4-11.0)
[2019-03-15 13:15] LABS: AST(SGOT) 28 U/L (15-37); Alanine Aminotransfer ALT/SGPT 22 U/L (13-56); Albumin, Serum 3.3 g/dL (3.2-5.0); Alkaline Phosphatase 155 U/L (45-117); Anion Gap 6 (5-15); BUN 23 mg/dL (7-18); BUN/Creat Ratio 30.2 RATIO (10-20); Calcium,Total 8.7 mg/dL (8.5-10.1); Chloride 110 mmol/L (98-107); Creatinine, Serum 0.76 mg/dL (0.55-1.02); EST Glomerular Filtration Rate 85 mL/min (>60); Est Glom Filt Rate - Afr Amer 103 mL/min (>60); Globulin 3.8 g/dL (2.2-4.2); Glucose 128 mg/dL (74-106); Phosphorus 3.9 mg/dL (2.5-4.9); Potassium 4.2 mmol/L (3.5-5.1); Protein, Total 7.1 g/dL (6.4-8.2); Sodium Level 141 mmol/L (136-145)
[2019-03-17 12:54] LABS: Tacrolimus (FK506) 6.5 ng/mL (2.0-20.0)
== END 2019-03-15 18:00 | disposition home or self-care (01) ==
LOC: LAB 11:44
PROVIDERS: Family Provider Nurse Practitioner Primary Care; PCP Nurse Practitioner Primary Care
DX: D89.9 Disorder involving the immune mechanism, unspecified (principal); Z94.4 Liver transplant status
CPT/HCPCS: 36415; 80048; 80076; 80197; 84100; 85025

== ENCOUNTER 2019-04-01 10:11 | Outpatient (RCR) | payer MEDICARE, SELFPAY ==
[2019-04-01 11:33] LABS: Absolute Lymphocyte Count 1.52 X10^3/uL (0.83-4.51); Absolute Neutrophil Count 3.9 X10^3/uL (2.0-7.7); Basophil# 0.02 X10^3/uL; Basophil% 0.3 % (0-1); Eosinophil# 0.09 X10^3/uL; Eosinophils% 1.5 % (0-5); Hematocrit 36.6 % (37-47); Hemoglobin 12.1 g/dL (12.0-15.0); Lymphocyte # 1.52 X10^3/ul (4.0); Lymphocyte % 25.2 % (19-41); Mean Corp Hgb Conc 33.1 g/dL (32-36); Mean Corpuscular Hgb 26.9 pg (27.0-32.0); Mean Corpuscular Volume 81.3 fL (81-99); Mean Platelet Vol. 10.9 fl (6.2-12.0); Monocyte# 0.45 X10^3/uL; Monocyte% 7.5 % (0-10); NRBC Flagged by Analyzer 0 % (0-5); Neutrophil # 3.93 X10^3/uL (2.7-7.7); Neutrophil % 65.3 % (47-70); Platelet Count 95 K/mm3 (150-450); RBC Distribution Width CV 14.6 % (11.6-14.6); RBC Distribution Width SD 42.8 fl (35.1-43.9)
[2019-04-01 11:53] LABS: AST(SGOT) 26 U/L (15-37); Alanine Aminotransfer ALT/SGPT 27 U/L (13-56); Albumin, Serum 3.3 g/dL (3.2-5.0); Alkaline Phosphatase 146 U/L (45-117); Anion Gap 7 (5-15); BUN 13 mg/dL (7-18); BUN/Creat Ratio 17.6 RATIO (10-20); Calcium,Total 8.6 mg/dL (8.5-10.1); Chloride 106 mmol/L (98-107); Creatinine, Serum 0.74 mg/dL (0.55-1.02); EST Glomerular Filtration Rate 88 mL/min (>60); Est Glom Filt Rate - Afr Amer 106 mL/min (>60); Globulin 3.8 g/dL (2.2-4.2); Glucose 166 mg/dL (74-106); Phosphorus 4.7 mg/dL (2.5-4.9); Potassium 4.1 mmol/L (3.5-5.1); Protein, Total 7.1 g/dL (6.4-8.2); Sodium Level 139 mmol/L (136-145)
[2019-04-03 15:29] LABS: Tacrolimus (FK506) 11.7 ng/mL (2.0-20.0)
== END 2019-04-01 18:00 | disposition home or self-care (01) ==
LOC: LAB 10:11
PROVIDERS: Family Provider Nurse Practitioner Primary Care; PCP Nurse Practitioner Primary Care
DX: D89.9 Disorder involving the immune mechanism, unspecified (principal); Z94.4 Liver transplant status; Z79.899 Other long term (current) drug therapy
CPT/HCPCS: 36415; 80048; 80076; 80197; 84100; 85025

== ENCOUNTER 2019-04-09 18:43 | Emergency (ER) | payer MEDICARE, SELFPAY ==
[2019-04-09 18:45] VITALS: BP 136/83; PULSE 90; RESP 19; TEMP 36.7; O2SAT 97; BMI 28.3
[2019-04-09 20:34] LABS: Absolute Lymphocyte Count 1.86 X10^3/uL (0.83-4.51); Absolute Neutrophil Count 5.1 X10^3/uL (2.0-7.7); Basophil# 0.03 X10^3/uL; Basophil% 0.4 % (0-1); Eosinophil# 0.12 X10^3/uL; Eosinophils% 1.6 % (0-5); Hemoglobin 12.6 g/dL (12.0-15.0); Lymphocyte # 1.86 X10^3/ul (4.0); Lymphocyte % 24.1 % (19-41); Mean Corp Hgb Conc 33.2 g/dL (32-36); Mean Corpuscular Hgb 26.9 pg (27.0-32.0); Mean Platelet Vol. 10.2 fl (6.2-12.0); Monocyte# 0.55 X10^3/uL; Monocyte% 7.1 % (0-10); NRBC Flagged by Analyzer 0 % (0-5); Neutrophil # 5.14 X10^3/uL (2.7-7.7); Neutrophil % 66.4 % (47-70); Platelet Count 100 K/mm3 (150-450); RBC Distribution Width CV 14.6 % (11.6-14.6); Red Blood Count 4.69 M/mm3 (4.2-5.4); White Blood Count 7.7 K/mm3 (4.4-11.0)
[2019-04-09 20:41] LABS: Bacteria 0 SEEN /hpf (None Seen); Mucous, Urine 0 SEEN /hpf (<or=2+); Squamous Epithelial Cells - UA 0 SEEN /hpf (5-10)
[2019-04-09 20:43] LABS: Color, Urine Yellow (Yellow); Glucose, Dipstick Normal (Normal); Ketone-Dipstick Negative (Negative); Leukocyte Esterase-Dipstick 100 /ul (Negative); Nitrite-Dipstick Negative (Negative); Occult Blood-Urine 25 /ul (Negative); Protein-Dipstick Negative (Negative); Urine Bilirubin Dipstick Negative (Negative); Urine Clarity Clear (Clear); Urine Urobilinogen Normal (Normal)
[2019-04-09 20:47] LABS: Anion Gap 3 (5-15); BUN 12 mg/dL (7-18); BUN/Creat Ratio 10.9 RATIO (10-20); Calcium,Total 8.4 mg/dL (8.5-10.1); Chloride 107 mmol/L (98-107); EST Glomerular Filtration Rate 55 mL/min (>60); Est Glom Filt Rate - Afr Amer 67 mL/min (>60); Estimated Creatinine Clearance 52.25 ml/min; Glucose 119 mg/dL (74-106); Sodium Level 139 mmol/L (136-145)
[2019-04-09 20:54] LABS: Red Blood Cells-Urine 0-5 SEEN /hpf (0-5)
[2019-04-09 20:55] LABS: White Blood Cells 0-5 SEEN /hpf (0-5)
--- NOTE | 2019-04-09 21:51 | CT_ITS ---
STUDY: CT ABDOMEN AND PELVIS WITH CONTRAST REASON FOR EXAM: Female, 53 years old. Abdomen pain and diarrhea. Kidney stones. C. difficile. Liver transplant. RADIATION DOSAGE (If Supplied By Facility): CTDIvol = ( 18.82 ) mGy, DLP = ( 1131.88 ) mGycm TECHNIQUE: Transaxial images were obtained from the dome of the diaphragm to the symphysis pubis with oral contrast. Oral and amp; IV Gastrografin and amp; 100mL Isovue-300 100ML was administered. Sagittal and coronal images were reconstructed. Individualized dose optimization techniques were used for this CT. COMPARISON: 02/04/2019, 12/25/2018. 03/24/2018. FINDINGS: Lung bases are clear. Heart size is normal. The liver transplant is unremarkable. The gallbladder is surgically absent. Pancreas is unremarkable. Mild splenomegaly. Spleen measures 15 cm AP by 15 cm craniocaudally. Splenic vein is prominent. Gastric and mild esophageal varices are present. The adrenal glands are normal. The kidneys are unremarkable. No stones or hydronephrosis. The aorta is normal in caliber. There is no free fluid, free air, or organized collection. Single dilated small bowel loop in the left upper quadrant, without evidence of closed loop or high-grade obstruction. Oral contrast passes into the mid small bowel. Urinary bladder is unremarkable. Normal abdominal wall. Normal osseous structures. CT/Abdomen/Pelvis WITH Contrast IMPRESSION: 1. Dilated small bowel loop in the left upper quadrant without high-grade obstruction. 2. Mild splenomegaly, prominent splenic vein and gastric varices suggest portal hypertension. No significant change from prior studies. No adverse change from preoperative study. Electronically Signed: Ksenia Akins MD at 23:58 EDT Tel , Service support ,
[2019-04-09] MEDS: Morphine 4 MG/ML Syringe IV (22:17)
[2019-04-09] MEDS: Ondansetron 4 MG/2 ML Vial IV (22:17)
[2019-04-09] MEDS: 0.9% Normal Saline 1,000 ML 1000 ML IV (22:17)
[2019-04-09 22:32] LABS: AST(SGOT) 18 U/L (15-37); Alanine Aminotransfer ALT/SGPT 16 U/L (13-56); Albumin, Serum 3.4 g/dL (3.2-5.0); Alkaline Phosphatase 128 U/L (45-117); Bilirubin, Direct 0.16 mg/dL (0.00-0.30); Protein, Total 7.4 g/dL (6.4-8.2)
[2019-04-09 22:36] VITALS: BP 119/80; PULSE 84; RESP 16; O2SAT 98
--- NOTE | 2019-04-09 23:41 | ED.DCSUM_ITS ---
History of Present Illness Chief Complaint: Abd Pain Detail of Chief Complaint: Abdominal pain pain, diarrhea Informant: Patient Onset: Days - 4 days Current Severity: Moderate Maximum Severity: Moderate Narrative: Patient has a history of liver transplant and C. difficile. She presents with a 4-day history of abdominal pain, nausea, vomiting, and lots of diarrhea. She is concerned that she may have C. difficile again. She has not noted a fever. Past Medical History - Allergies and Home Meds Allergies/Adverse Reactions: Allergies sulfamethoxazole [From Bactrim] Allergy (Verified 04/09/19 18:44) Fever and skin rash trimethoprim [From Bactrim] Allergy (Verified 04/09/19 18:44) Fever and skin rash diphenhydramine HCl [From Benadryl] Adverse Reaction (Verified 04/09/19 18:44) [place] [facility] [place] lorazepam [From Ativan] Adverse Reaction (Verified 04/09/19 18:44) Cl[place] SHE FEELS LIKE SHE WANTS TO CLIMB THE [place] prochlorperazine edisylate [From Compazine] Adverse Reaction (Verified 04/09/19 18:44) [place] prochlorperazine maleate [From Compazine] Adverse Reaction (Verified 04/09/19 18:44) climb out of my body CLIMB OUT OF MY BODY promethazine HCl [From Phenergan] Adverse Reaction (Verified 04/09/19 18:44) [place] [facility] [place] topiramate [From Topamax] Adverse Reaction (Verified 04/09/19 18:44) Other tramadol Adverse Reaction (Verified 04/09/19 18:44) [place] feels like going to climb rose Primary Care Physician: Anna eMza NP-C [Primary Care Provider] - Prior records reviewed: Yes Past Medical History: - - Reviewed Surgical History: cholecystectomy, hysterectomy, total knee arthroplasty, - - cholecystectomy, partial hysterectomy, right shoulder replacement secondary to fall secondary to seizure, bilateral knee arthroscopic, liver transplant Smoking Status: Never smoker - Family History Maternal Family History: Reports: COPD Paternal Family History: Reports: Heart Disease - CHF, - - Liver disease, alcoholism Sibling Family History: Reports: Heart Disease, Stroke, - - cirrhosis Review of Systems General: Denies: Chills, Fever Eyes: Denies: Visual changes - bilaterally ENT: Denies: Bilateral ear pain Cardiovascular: Denies: Chest pain Respiratory: Denies: Dyspnea, Cough Gastrointestinal: Reports: Abdominal pain, Nausea, Vomiting, Diarrhea Genitourinary: Denies: Dysuria Musculoskeletal: Denies: Extremity Pain Skin: Denies: Rash Neurological: Denies: Headache Physical Exam Vital Signs/Narrative: Vital Signs Pulse Resp BP Pulse Ox 04/09/19 22:36 84 16 119/80 98 Inital Vital Signs reviewed: Yes General: Well nourished, Well developed Head: Normocephalic ENT: Moist mucous membranes Neck: Supple Cardiovascular: Regular rate, Regular rhythm Respiratory: No distress, CTA bilaterally Abdomen: Soft, Tender - Right lower quadrant tenderness to palpation., Hypoactive bowel sounds. Negative for: Guarding, Rebound tenderness Extremities: Nontender, No edema Skin: Normal color, No rash Neurological: Alert, Oriented x3 Psychological: Normal affect Diagnostic/Tx/Re-eval Impressions Abdomen/Pelvis CT 04/09/19 21:51 IMPRESSION: 1. Dilated small bowel loop in the left upper quadrant without high-grade obstruction. 2. Mild splenomegaly, prominent splenic vein and gastric varices suggest portal hypertension. No significant change from prior studies. No adverse change from preoperative study. Electronically Signed: Ksenia Akins MD at 23:58 EDT Tel , Service support , 04/09/19 21:51 Abdomen/Pelvis WITH Contrast [CT] Stat Laboratory Results 04/09/19 04/09/19 04/09/19 20:25 20:25 20:25 WBC 7.7 RBC 4.69 Hgb 12.6 Hct 38.0 MCV 81.0 MCH 26.9 L MCHC 33.2 RDW Std Deviation 42.0 RDW Coeff of Nicole 14.6 Plt Count 100 L MPV 10.2 Immature Gran % (Auto) 0.400 Neut % (Auto) 66.4 Lymph % (Auto) 24.1 [place] % (Auto) 7.1 Eos % (Auto) 1.6 Baso % (Auto) 0.4 Absolute Neuts (auto) 5.1 Absolute Lymphs (auto) 1.86 Nucleated RBC % 0 Sodium 139 Potassium 4.0 Chloride 107 Carbon Dioxide 29.0 Anion Gap 3 L BUN 12 Creatinine 1.10 H Estim Creat Clear Calc 52.25 Est GFR (MDRD) Af Amer 67 Est GFR (MDRD) Non-Af 55 L BUN/Creatinine Ratio 10.9 Glucose 119 H Calcium 8.4 L Total Bilirubin 0.40 Direct Bilirubin 0.16 AST 18 ALT 16 Alkaline Phosphatase 128 H Total Protein 7.4 Albumin 3.4 Globulin 4.0 Urine Color Urine Clarity Urine pH Ur Specific [place] Urine Protein Urine Glucose (UA) Urine Ketones Urine Occult Blood Urine Nitrite Urine Bilirubin Urine Urobilinogen Ur Leukocyte Esterase Urine RBC Urine WBC Ur Squamous Epith Cells Urine Bacteria Urine Mucus 04/09/19 20:36 WBC RBC Hgb Hct MCV MCH MCHC RDW Std Deviation RDW Coeff of Nicole Plt Count MPV Immature Gran % (Auto) Neut % (Auto) Lymph % (Auto) [place] % (Auto) Eos % (Auto) Baso % (Auto) Absolute Neuts (auto) Absolute Lymphs (auto) Nucleated RBC % Sodium Potassium Chloride Carbon Dioxide Anion Gap BUN Creatinine Estim Creat Clear Calc Est GFR (MDRD) Af Amer Est GFR (MDRD) Non-Af BUN/Creatinine Ratio Glucose Calcium Total Bilirubin Direct Bilirubin AST ALT Alkaline Phosphatase Total Protein Albumin Globulin Urine Color Yellow Urine Clarity Clear Urine pH 5.0 Ur Specific [place] 1.010 Urine Protein Negative Urine Glucose (UA) Normal Urine Ketones Negative Urine Occult Blood 25 H Urine Nitrite Negative Urine Bilirubin Negative Urine Urobilinogen Normal Ur Leukocyte Esterase 100 H Urine RBC 0-5 SEEN Urine WBC 0-5 SEEN Ur Squamous Epith Cells 0 SEEN Urine Bacteria 0 SEEN Urine Mucus 0 SEEN - Medical Decision Making The morphine and Zofran for pain and nausea. She was given IV fluid replacement per following CT scan she did require a second dose of morphine along with a dose of Bentyl. At this time patient is resting comfortably. She does report feeling improved. I will write her for [place], Bentyl, and Zofran for home. She was not able to provide a stool sample here but does have concern about C. difficile. We will write her an outpatient order and if she is able to collect a sample will be able to test for it. ED Disposition - Plan for ED Patient: Disposition: Home or Assisted Living Diagnosis: Gastroenteritis Instructions: GASTROENTERITIS, Viral (8y-Adult) Prescriptions: Dicyclomine HCl [Bentyl] 20 mg PO TIDAC PRN #20 capsule PRN Reason: Cramp Hydrocodone Bitart/Apap 5-325 [[place] 5MG-325MG] 1 tablet PO Q6H PRN PRN 3 Days #10 tablet PRN Reason: Pain Ondansetron [Zofran Odt] 4 mg PO Q8H PRN PRN #10 tablet PRN Reason: Nausea Referrals: Anna Meza, MANAGER EMPLOYMENT-C [Primary Care Provider] - 3-5 Days
[2019-04-09] MEDS: 0.9% Normal Saline 1,000 ML 150 ML IV (23:53)
[2019-04-10] MEDS: Morphine 4 MG/ML Syringe IV (00:37)
[2019-04-10] MEDS: Ondansetron 4 MG/2 ML Vial IV (00:37)
[2019-04-10] MEDS: Dicyclomine 20 MG/2 ML Vial IM (00:37)
[2019-04-10 01:24] VITALS: BP 110/78; PULSE 80; RESP 18; O2SAT 100
== END 2019-04-10 01:25 | disposition home or self-care (01) ==
PROVIDERS: Emergency Provider Emergency Medicine; Family Provider Nurse Practitioner Primary Care; PCP Nurse Practitioner Primary Care
DX: K52.9 Noninfective gastroenteritis and colitis, unspecified (principal); Z94.4 Liver transplant status
CPT/HCPCS: 74177; 80048; 80076; 81001; 85025; 96361; 96372; 96374; 96375; 96376; 99283; J7030; Q9967; A4216; J2405

== ENCOUNTER 2019-04-17 10:49 | Outpatient (RCR) | payer MEDICARE, SELFPAY ==
[2019-04-17 11:25] LABS: Absolute Lymphocyte Count 1.58 X10^3/uL (0.83-4.51); Absolute Neutrophil Count 4.4 X10^3/uL (2.0-7.7); Basophil# 0.04 X10^3/uL; Basophil% 0.6 % (0-1); Eosinophil# 0.13 X10^3/uL; Eosinophils% 1.9 % (0-5); Hematocrit 37.8 % (37-47); Hemoglobin 12.4 g/dL (12.0-15.0); Lymphocyte # 1.58 X10^3/ul (4.0); Lymphocyte % 23.4 % (19-41); Mean Corp Hgb Conc 32.8 g/dL (32-36); Mean Corpuscular Hgb 26.6 pg (27.0-32.0); Mean Corpuscular Volume 80.9 fL (81-99); Mean Platelet Vol. 10.3 fl (6.2-12.0); Monocyte# 0.59 X10^3/uL; Monocyte% 8.8 % (0-10); NRBC Flagged by Analyzer 0 % (0-5); Neutrophil # 4.38 X10^3/uL (2.7-7.7); POSITIVE COUNT YES; Platelet Count 96 K/mm3 (150-450); RBC Distribution Width CV 14.4 % (11.6-14.6); Red Blood Count 4.67 M/mm3 (4.2-5.4); White Blood Count 6.7 K/mm3 (4.4-11.0)
[2019-04-17 11:30] LABS: Differential Indicated SCAN CRITERIA MET
[2019-04-17 11:52] LABS: AST(SGOT) 14 U/L (15-37); Alanine Aminotransfer ALT/SGPT 10 U/L (13-56); Albumin, Serum 3.6 g/dL (3.2-5.0); Alkaline Phosphatase 114 U/L (45-117); Anion Gap 8 (5-15); BUN 11 mg/dL (7-18); BUN/Creat Ratio 12.2 RATIO (10-20); Chloride 108 mmol/L (98-107); EST Glomerular Filtration Rate 70 mL/min (>60); Est Glom Filt Rate - Afr Amer 84 mL/min (>60); Globulin 3.8 g/dL (2.2-4.2); Glucose 135 mg/dL (74-106); Phosphorus 4.4 mg/dL (2.5-4.9); Potassium 4.2 mmol/L (3.5-5.1); Protein, Total 7.4 g/dL (6.4-8.2); Sodium Level 140 mmol/L (136-145)
[2019-04-17 12:48] LABS: Differential Comment SCANNED; Platelet Estimate SLT DEC (ADEQ)
[2019-04-20 08:08] LABS: Tacrolimus (FK506) 8.4 ng/mL (2.0-20.0)
== END 2019-04-17 18:00 | disposition home or self-care (01) ==
LOC: LAB 10:49
PROVIDERS: Family Provider Nurse Practitioner Primary Care; PCP Nurse Practitioner Primary Care
DX: Z94.4 Liver transplant status (principal); Z79.899 Other long term (current) drug therapy
CPT/HCPCS: 36415; 80048; 80076; 80197; 84100; 85025

== ENCOUNTER 2019-05-03 15:38 | Emergency (ER) | payer MEDICARE, SELFPAY ==
[2019-05-03 15:41] VITALS: BP 136/94; PULSE 120; RESP 18; TEMP 36.8; O2SAT 95; BMI 26.6
--- NOTE | 2019-05-03 16:30 | CT_ITS ---
STUDY: CT ABDOMEN AND PELVIS WITHOUT CONTRAST REASON FOR EXAM: Female, 54 years old. Pain RADIATION DOSAGE (If Supplied By Facility): DLP = ( 677.03 ) mGycm TECHNIQUE: Transaxial images were obtained from the dome of the diaphragm to the symphysis pubis with oral contrast, and without intravenous contrast. Sagittal and coronal images were reconstructed. Individualized dose optimization techniques were used for this CT. COMPARISON: CT abdomen pelvis April 09, 2019 FINDINGS: Evaluation of the abdominal viscera is limited in the absence of intravenous contrast. The visualized lung bases are clear. The visualized portions of the heart and pericardium are within normal limits. Post liver transplant noted. There are no hepatic lesions. The spleen is enlarged. Splenic and gastric varices present. The pancreas demonstrates an unremarkable unenhanced appearance. The adrenal glands are within normal limits. There are no obstructing renal stones. There is no hydronephrosis. Normal visualized stomach. There is no bowel obstruction or inflammation. Colonic diverticulosis is present. The appendix is normal. The aorta is normal in caliber. There is no abdominal or pelvic free air, free fluid, fluid collection or lymphadenopathy. There are no destructive osseous lesions. CT/Abdomen/Pelvis without Cont IMPRESSION: No acute abdominal or pelvic pathology demonstrated on this noncontrast CT. Colonic diverticulosis without evidence of inflammation. Sequelae of portal hypertension. Electronically Signed: Jayson Benjamin, at 17:19 EST Tel , Service support ,
--- NOTE | 2019-05-03 16:38 | ED.VIS.GI ---
History of Present Illness Chief Complaint: Diarrhea Narrative: Patient presenting for evaluation secondary to abdominal pain and diarrhea. Patient has a underlying history of a liver transplant in 2018. She is on Prograf and CellCept. Patient states that over the course of about the last 2 days she had been dealing with an onset of abdominal pain. She states that it was initially associated with epigastric burning that radiated through to her back and was associated with some nausea and frequent belching but no vomiting. She denies any presence of fevers associated with it. Patient states that that epigastric type discomfort seemed to resolve but then she started to have very frequent stools that progressed to having very loose stools. Patient states that now that she has had frequent loose stools, she has frequent feelings that she needs to have a bowel movement but almost feels as if she cannot and has very sharp searing lower abdominal pain and rectal pain when she is having that sensation. Patient does have a history of having C. difficile in the past, but has not been admitted to the hospital or exposed any sort of antibiotics since October. She denies any urinary signs or symptoms. Review of systems otherwise negative. Past Medical History - Allergies and Home Meds Allergies/Adverse Reactions: Allergies sulfamethoxazole [From Bactrim] Allergy (Verified 05/03/19 15:41) Fever and skin rash trimethoprim [From Bactrim] Allergy (Verified 05/03/19 15:41) Fever and skin rash diphenhydramine HCl [From Benadryl] Adverse Reaction (Verified 05/03/19 15:41) climb the rose CLIMB THE ROSE lorazepam [From Ativan] Adverse Reaction (Verified 05/03/19 15:41) Climb the rose SHE FEELS LIKE SHE WANTS TO CLIMB THE ROSE prochlorperazine edisylate [From Compazine] Adverse Reaction (Verified 05/03/19 15:41) climb the rose CLIMB THE ROSE prochlorperazine maleate [From Compazine] Adverse Reaction (Verified 05/03/19 15:41) climb out of my body CLIMB OUT OF MY BODY promethazine HCl [From Phenergan] Adverse Reaction (Verified 05/03/19 15:41) climb the rose CLIMB THE ROSE topiramate [From Topamax] Adverse Reaction (Verified 05/03/19 15:41) Other tramadol Adverse Reaction (Verified 05/03/19 15:41) climb the rose feels like going to climb rose Primary Care Physician: Anna Meza NP-C [Primary Care Provider] - Past Medical History: - - History of liver transplant Surgical History: cholecystectomy, hysterectomy, total knee arthroplasty, - - cholecystectomy, partial hysterectomy, right shoulder replacement secondary to fall secondary to seizure, bilateral knee arthroscopic, liver transplant Smoking Status: Never smoker - Family History Maternal Family History: Reports: COPD Paternal Family History: Reports: Heart Disease - CHF, - - Liver disease, alcoholism Sibling Family History: Reports: Heart Disease, Stroke, - - cirrhosis Review of Systems All systems negative except as indicated General: Denies: Fever Eyes: Denies: Visual changes - bilaterally, Diplopia ENT: Denies: Rhinorrhea, Sore throat Cardiovascular: Denies: Chest pain, Palpitations Respiratory: Denies: Dyspnea, Cough, Dyspnea on exertion Gastrointestinal: Reports: Abdominal pain, Nausea, Diarrhea. Denies: Vomiting Genitourinary: Denies: Dysuria, Hematuria, Frequency Musculoskeletal: Denies: Back pain, Extremity Pain Skin: Denies: Rash, Wounds Neurological: Denies: Headache, Weakness, Numbness Psych: Denies: Depression Endocrine: Denies: Heat intolerance, Cold intolerance Allergy: Denies: Uticaria Physical Exam Vital Signs/Narrative: Vital Signs Temp Pulse Resp BP Pulse Ox 05/03/19 15:41 98.2 F 120 H 18 136/94 H 95 Inital Vital Signs reviewed: Yes General: Well nourished, Well developed, No Acute Distress Head: Normocephalic, Atraumatic Eyes: Perrl, EOMI ENT: Moist mucous membranes, No rhinorrhea Neck: Supple, Nontender Cardiovascular: Regular rhythm, No murmurs, Tachycardia Respiratory: No distress, CTA bilaterally, Chest nontender Abdomen: Tender - Diffuse nonlocalizing. Large right upper quadrant abdominal scar consistent with the patient's liver transplant. Back: Nontender, Normal Inspection Extremities: Nontender, No edema Skin: Normal color, No rash Neurological: Alert, Oriented x3, Cranial nerves II-XII grossly intact, Normal Strength, Normal Sensation Psychological: Normal affect, Normal Mood Diagnostic/Tx/Re-eval - Medical Decision Making Patient presented secondary to abdominal pain in the setting of having a liver transplant. She had diffuse abdominal pain and was tachycardic, work-up was obtained. IV was established laboratory studies were obtained patient was given Dilaudid Zofran and a liter of saline. CBC and chemistry were found to be grossly unremarkable without significant evidence of leukocytosis or shift or any evidence of renal insufficiency electrolyte derangement or significant hepatic derangement. CT abdomen and pelvis without contrast was performed. Per radiology review, this did not demonstrate any evidence of obstruction, volvulus, inflammatory bowel pathology, or anything acute other than the patient's chronic changes from her liver transplant. Repeat evaluation of the patient at 1745 shows improved heart rate to 90 and improved pain. At this point I do not feel that the patient requires further observation or admission. She was given an additional dose of IV pain medication as well as some additional fluids. She does have medications at home for control of her symptoms. Patient was discharged in improved condition. Disposition: Home ED Disposition - Plan for ED Patient: Disposition: Home or Assisted Living Diagnosis: Abdominal pain, History of liver transplant Instructions: ABDOMINAL PAIN, Unknown Cause, (Female) Referrals: Anna Meza NP-C [Primary Care Provider] - 3-5 Days
[2019-05-03] MEDS: Ondansetron 4 MG/2 ML Vial IV (16:42)
[2019-05-03] MEDS: HYDROmorphone 1 MG/ML Syringe IV (16:42)
[2019-05-03 16:50] LABS: Absolute Lymphocyte Count 1.68 X10^3/uL (0.83-4.51); Absolute Neutrophil Count 5.6 X10^3/uL (2.0-7.7); Basophil# 0.03 X10^3/uL; Basophil% 0.4 % (0-1); Eosinophil# 0.06 X10^3/uL; Eosinophils% 0.8 % (0-5); Hematocrit 38.1 % (37-47); Hemoglobin 12.9 g/dL (12.0-15.0); Lymphocyte # 1.68 X10^3/ul (4.0); Lymphocyte % 21.1 % (19-41); Mean Corp Hgb Conc 33.9 g/dL (32-36); Mean Corpuscular Hgb 27.2 pg (27.0-32.0); Mean Corpuscular Volume 80.2 fL (81-99); Mean Platelet Vol. 10.5 fl (6.2-12.0); Monocyte# 0.57 X10^3/uL; Monocyte% 7.1 % (0-10); NRBC Flagged by Analyzer 0 % (0-5); Neutrophil # 5.62 X10^3/uL (2.7-7.7); Neutrophil % 70.3 % (47-70); Platelet Count 102 K/mm3 (150-450); RBC Distribution Width CV 14.2 % (11.6-14.6); RBC Distribution Width SD 41.1 fl (35.1-43.9); Red Blood Count 4.75 M/mm3 (4.2-5.4)
[2019-05-03 17:00] LABS: ALB/GLOB Ratio 0.9 RATIO (0.9-2.4); AST(SGOT) 19 U/L (15-37); Alanine Aminotransfer ALT/SGPT 22 U/L (13-56); Albumin, Serum 3.6 g/dL (3.2-5.0); Alkaline Phosphatase 126 U/L (45-117); Anion Gap 6 (5-15); BUN 12 mg/dL (7-18); BUN/Creat Ratio 14.1 RATIO (10-20); Calcium,Total 9.5 mg/dL (8.5-10.1); Chloride 107 mmol/L (98-107); Creatinine, Serum 0.85 mg/dL (0.55-1.02); EST Glomerular Filtration Rate 74 mL/min (>60); Est Glom Filt Rate - Afr Amer 90 mL/min (>60); Estimated Creatinine Clearance 69.67 ml/min; Globulin 3.8 g/dL (2.2-4.2); Glucose 187 mg/dL (74-106); Potassium 3.9 mmol/L (3.5-5.1); Protein, Total 7.4 g/dL (6.4-8.2); Sodium Level 139 mmol/L (136-145)
[2019-05-03] MEDS: HYDROmorphone 0.5 MG/0.5 ML SYRINGE IV (18:02)
[2019-05-03] MEDS: 0.9% Normal Saline 1,000 ML 1000 ML IV ×2 (18:03→18:05)
[2019-05-03] MEDS: Mag Hydrox/Al Hydrox/Simeth 30 ML UDC PO (18:47)
[2019-05-03 19:39] VITALS: BP 117/77; PULSE 98; RESP 17; O2SAT 97
--- NOTE | 2019-05-03 20:15 | ED.RN ---
THIS NURSE REVIEWED D/C INSTRUCTIONS WITH PT. PT VERBALIZED UNDERSTANDING OF INSTRUCTIONS. IV D/C. IV CATHETER INTACT. PT TOLERATED WELL. PT DENIES FURTHER NEEDS OR QUESTIONS AT THIS TIME. PT AMBULATES FROM ROOM ON OWN WITHOUT ASSISTANCE FROM STAFF
[2019-05-03 20:16] VITALS: BP 139/78; PULSE 73; RESP 20; O2SAT 97
== END 2019-05-03 20:17 | disposition home or self-care (01) ==
PROVIDERS: Emergency Provider Emergency Medicine; Family Provider Nurse Practitioner Primary Care; PCP Nurse Practitioner Primary Care
DX: R10.84 Generalized abdominal pain (principal); Z94.4 Liver transplant status; R19.7 Diarrhea, unspecified; R11.0 Nausea; K62.89 Other specified diseases of anus and rectum; R00.0 Tachycardia, unspecified; Z86.19 Personal history of other infectious and parasitic diseases; Z90.49 Acquired absence of other specified parts of digestive tract; Z79.82 Long term (current) use of aspirin; Z79.899 Other long term (current) drug therapy
CPT/HCPCS: 74176; 80053; 85025; 96361; 96374; 96375; 96376; 99284; J7030; J7040; A4216; J2405

== ENCOUNTER 2019-05-29 13:44 | Emergency (ER) | payer MEDICARE, MEDICAID, SELFPAY ==
[2019-05-29 13:45] VITALS: BP 156/95; PULSE 90; RESP 16; TEMP 36.4; O2SAT 98; BMI 26.9
--- NOTE | 2019-05-29 14:06 | RAD_ITS ---
STUDY: X-RAY - LEFT SHOULDER REASON FOR EXAM: Female, 54 years old. Fall. Pain. TECHNIQUE: 2 view(s) of the shoulder on 4 images. COMPARISON: None. FINDINGS: Generalized osteopenia. Normal glenohumeral articulation. Normal acromioclavicular joint. Normal acromion. Impression deformity of the upper outer aspect of the humeral head compatible with Hill-Sachs deformity. The soft tissue structures are unremarkable. Normal visualized pulmonary apex. RAD/Shoulder min 2 Views IMPRESSION: Osteopenia with Hill-Sachs deformity of the humeral head. No acute finding. Electronically Signed: Pawan Carcamo MD at 14:50 EST , Service support ,
--- NOTE | 2019-05-29 14:06 | RAD_ITS ---
STUDY: X-RAY - UNILATERAL RIBS ( LEFT ) WITH CHEST REASON FOR EXAM: Female, 54 years old. Fall. Pain. TECHNIQUE - RIBS: 4 view(s) of the ribs. TECHNIQUE - CHEST: Single frontal view of the chest. COMPARISON: Chest x-ray dated March 03, 2019 FINDINGS - RIBS: Osteopenia with no displaced rib fracture identified. FINDINGS - CHEST: Stable hyperexpansion. There is no demonstrated pleural abnormality. Borderline cardiomegaly unchanged. Normal mediastinum and erin. Normal visualized pulmonary arteries. Normal visualized aortic arch and descending thoracic aorta. Normal visualized thoracic spine. Normal visualized ribs, clavicles, and shoulders. Clips in the central portion of the upper abdomen unchanged. RAD/Ribs Uni Min 3V w/PA Chest IMPRESSION: RIBS: Osteopenia with no displaced rib fracture identified. CHEST: Stable chest with no acute finding. Electronically Signed: Pawan Carcamo MD at 14:46 EST , Service support ,
[2019-05-29] MEDS: oxyCODONE 5 MG Tablet PO (14:30)
--- NOTE | 2019-05-29 15:29 | ED.DCSUM_ITS ---
History of Present Illness Chief Complaint: Upper Extremity Injury Detail of Chief Complaint: Left shoulder and left rib pain Informant: Patient Onset: Yesterday Current Severity: Moderate Maximum Severity: Moderate Narrative: Patient presents after mechanical fall at home yesterday. She states she slipped on the wood floor with a loose rug. She landed on her left side. She believes she already had a partial tear of her rotator cuff on the left. Pain to her left shoulder is now worsened. She also complains of pain to her left lateral ribs, worse with deep breath. - Past Medical History (1) Anxiety Status: Chronic (2) Asthma Status: Chronic (3) Hiatal hernia Status: Chronic (4) Liver transplant recipient Status: Chronic (5) Migraine Status: Chronic (6) Seizures Status: Chronic Comment: last known 11/2016 Past Medical History - Allergies and Home Meds Allergies/Adverse Reactions: Allergies sulfamethoxazole [From Bactrim] Allergy (Verified 05/29/19 13:47) Fever and skin rash trimethoprim [From Bactrim] Allergy (Verified 05/29/19 13:47) Fever and skin rash diphenhydramine HCl [From Benadryl] Adverse Reaction (Verified 05/29/19 13:47) climb the rose CLIMB THE ROSE lorazepam [From Ativan] Adverse Reaction (Verified 05/29/19 13:47) Climb the rose SHE FEELS LIKE SHE WANTS TO CLIMB THE ROSE prochlorperazine edisylate [From Compazine] Adverse Reaction (Verified 05/29/19 13:47) climb the rose CLIMB THE ROSE prochlorperazine maleate [From Compazine] Adverse Reaction (Verified 05/29/19 13:47) climb out of my body CLIMB OUT OF MY BODY promethazine HCl [From Phenergan] Adverse Reaction (Verified 05/29/19 13:47) climb the rose CLIMB THE ROSE topiramate [From Topamax] Adverse Reaction (Verified 05/29/19 13:47) Other tramadol Adverse Reaction (Verified 05/29/19 13:47) climb the rose feels like going to climb rose Primary Care Physician: Anna Meza PHOTOGRAPHIC MACHINE OPERATOR-C [Primary Care Provider] - Prior records reviewed: Yes Surgical History: cholecystectomy, hysterectomy, total knee arthroplasty, - - cholecystectomy, partial hysterectomy, right shoulder replacement secondary to fall secondary to seizure, bilateral knee arthroscopic, liver transplant Lives: Spouse/ Significant Other Smoking Status: Never smoker - Family History Maternal Family History: Reports: COPD Paternal Family History: Reports: Heart Disease - CHF, - - Liver disease, alcoholism Sibling Family History: Reports: Heart Disease, Stroke, - - cirrhosis Review of Systems General: Denies: Chills, Fever Eyes: Denies: Visual changes - bilaterally ENT: Denies: Bilateral ear pain Cardiovascular: Reports: Chest pain - Left lateral ribs Respiratory: Reports: Dyspnea - Pain worse with deep breath, but not short of breath. Denies: Cough Gastrointestinal: Denies: Abdominal pain, Nausea, Vomiting, Diarrhea Genitourinary: Denies: Dysuria Musculoskeletal: Reports: Extremity Pain. Denies: Neck pain, Back pain Skin: Denies: Rash Psych: Denies: Depression Hematologic: Denies: Easy bruising Allergy: Denies: Uticaria Physical Exam Vital Signs/Narrative: Vital Signs Temp Pulse Resp BP Pulse Ox 05/29/19 13:45 97.6 F L 90 16 156/95 H 98 Inital Vital Signs reviewed: Yes General: Well nourished, Well developed Head: Normocephalic ENT: Moist mucous membranes Neck: Supple Cardiovascular: Regular rate, Regular rhythm Respiratory: No distress, CTA bilaterally, Chest tenderness - Lateral chest wall tenderness. No crepitus. Abdomen: Soft, Nontender Extremities: - - Mild tenderness around the left shoulder with no deformity. Strong distal pulses. Increased pain with any elevation over her head. Skin: Normal color Neurological: Alert, Oriented x3 Psychological: Normal affect Diagnostic/Tx/Re-eval Impressions Ribs w/Chest X-Ray 05/29/19 14:06 IMPRESSION: RIBS: Osteopenia with no displaced rib fracture identified. CHEST: Stable chest with no acute finding. Electronically Signed: Pawan Carcamo MD at 14:46 EST , Service support , Shoulder X-Ray 05/29/19 14:06 IMPRESSION: Osteopenia with Hill-Sachs deformity of the humeral head. No acute finding. Electronically Signed: Pawan Carcamo MD at 14:50 EST , Service support , 05/29/19 14:06 Ribs Uni Min 3V w/PA Chest [RAD] Stat Shoulder min 2 Views [RAD] Stat - Medical Decision Making Due to the patient's history of liver transplant she was given a dose of oxycodone here. Test results are discussed with her. She will be given a sling. We discussed the importance of deep breathing to prevent pneumonia. She has been seen by [facility] in the past. She may follow-up with them or will also be given information for Dr. Robert if she wishes to be seen here locally. ED Disposition - Plan for ED Patient: Disposition: Home or Assisted Living Diagnosis: Fall, Shoulder sprain, Rib contusion Instructions: Rib Contusion, Shoulder Sprain Prescriptions: Oxycodone [Oxyir] 5 mg PO Q6H PRN PRN 3 Days #14 tablet PRN Reason: Pain Score 6-10/10 Transmission Status: Sent to [facility] #30 Referrals: Anna Meza NP-C [Primary Care Provider] - Prema Robert DO [STAFF PHYSICIAN] - As Needed
[2019-05-29 15:55] VITALS: BP 127/93; PULSE 88; RESP 16; O2SAT 98
--- NOTE | 2019-05-29 15:55 | ED.RN ---
DISCHARGE INSTRUCTIONS GIVEN TO AND REVIEWED WITH PATIENT, PATIENT DENIES QUESTIONS OR CONCERNS AND VOICES UNDERSTANDING OF DISCHARGE INSTRUCTIONS. PT AMBULATES OUT OF ROOM WITHOUT DIFFICULTY.
== END 2019-05-29 15:56 | disposition home or self-care (01) ==
PROVIDERS: Emergency Provider Emergency Medicine; Family Provider Nurse Practitioner Primary Care; PCP Nurse Practitioner Primary Care
DX: S43.402A Unspecified sprain of left shoulder joint, initial encounter (principal); S20.212A Contusion of left front wall of thorax, initial encounter; M85.88 Other specified disorders of bone density and structure, other site; M85.812 Other specified disorders of bone density and structure, left shoulder; W01.0XXA Fall on same level from slipping, tripping and stumbling without subsequent striking against object, initial encounter; Y93.9 Activity, unspecified; Y92.009 Unspecified place in unspecified non-institutional (private) residence as the place of occurrence of the external cause; F41.9 Anxiety disorder, unspecified; J45.909 Unspecified asthma, uncomplicated; K44.9 Diaphragmatic hernia without obstruction or gangrene; G40.909 Epilepsy, unspecified, not intractable, without status epilepticus; G43.909 Migraine, unspecified, not intractable, without status migrainosus; Z94.4 Liver transplant status; Z79.82 Long term (current) use of aspirin; Z79.899 Other long term (current) drug therapy
CPT/HCPCS: 71101; 73030; 99283

== ENCOUNTER → 2019-06-24 13:21 | Outpatient (CLI) | payer MEDICARE, MEDICAID, SELFPAY ==
[2019-06-24 13:06] VITALS: BMI 26.9
--- NOTE | 2019-06-24 13:22 | RAD_ITS ---
STUDY: X-RAY - LEFT SHOULDER REASON FOR EXAM: Pain. TECHNIQUE: 4 view(s) of the shoulder. COMPARISON: Radiographs 05/29/2019, 07/29/2016 and 04/25/2013. FINDINGS: Normal glenohumeral articulation. Normal acromioclavicular joint. Normal acromion. There is focal sclerosis in the greater tuberosity without interval change since 2012. The soft tissue structures are unremarkable. Normal visualized pulmonary apex. RAD/Shoulder min 2 Views IMPRESSION: Chronic focal sclerosis in the greater tuberosity without interval change. Electronically Signed: Sven Aguirre MD at 14:01 EST Tel , Service support ,
== END ==
LOC: HPRAD 13:22
PROVIDERS: Family Provider Nurse Practitioner Primary Care; PCP Nurse Practitioner Primary Care; Referring Provider Orthopaedic Surgery; Visit Provider Orthopaedic Surgery
DX: M25.512 Pain in left shoulder (principal)
CPT/HCPCS: 73030

== ENCOUNTER 2019-07-09 15:23 | Emergency (ER) | payer MEDICARE, MEDICAID, SELFPAY ==
[2019-06-24 13:06] VITALS: BMI 26.9
[2019-07-09 15:24] VITALS: BP 155/95; PULSE 93; RESP 16; TEMP 37; O2SAT 98; BMI 28.8
[2019-07-09 16:07] LABS: Bacteria 0 SEEN /hpf (None Seen); Mucous, Urine 0 SEEN /hpf (<or=2+); White Blood Cells 0 SEEN /hpf (0-5)
[2019-07-09 16:17] LABS: Color, Urine Yellow (Yellow); Glucose, Dipstick Normal (Normal); Ketone-Dipstick Negative (Negative); Leukocyte Esterase-Dipstick Negative /ul (Negative); Nitrite-Dipstick Negative (Negative); Occult Blood-Urine Negative /ul (Negative); Protein-Dipstick Negative (Negative); Specific Gravity, Urine 1.015 (1.002-1.030); Urine Bilirubin Dipstick Negative (Negative); Urine Clarity Clear (Clear); Urine Urobilinogen Normal (Normal)
--- NOTE | 2019-07-09 16:17 | CT_ITS ---
STUDY: CT ABDOMEN AND PELVIS WITHOUT CONTRAST REASON FOR EXAM: Female, 54 years old. RUQ PAIN/POSS. HERNIA AT TRANSPLANT SITE. Pt had liver transplant 05/2018 RADIATION DOSAGE (If Supplied By Facility): CTDIvol = ( 8.77 ) mGy, DLP = ( 431.75 ) mGycm TECHNIQUE: Transaxial images were obtained from the dome of the diaphragm to the symphysis pubis without oral contrast, and without intravenous contrast. Sagittal and coronal images were reconstructed. Individualized dose optimization techniques were used for this CT. COMPARISON: 05/03/2019. FINDINGS: The visualized lung bases are unremarkable. The visualized portions of the heart are within normal limits. Normal liver. Numerous surgical clips around the clare hepatis consistent with the history of liver transplant. There has been cholecystectomy. There is moderate splenomegaly. Normal pancreas. Normal bilateral adrenal glands. Normal right kidney. Normal left kidney. Evaluation of the GI tract is limited by absence of oral contrast. Cannot exclude stomach wall thickening. No dilated loops of bowel or evidence for obstruction. Cannot exclude segmental thickening of the rose of the small or large bowel. Cannot exclude enteritis or colitis. Moderate diffuse fecal retention. Appendix within normal limits. Normal abdominal aorta. Normal inferior vena cava. Normal retroperitoneum. Normal urinary bladder. There is a small umbilical hernia containing fat. Small ventral incisional hernia containing only fat. This is new since prior study. Compression fractures of L1 and L2 are stable, otherwise normal osseous structures. CT/Abdomen/Pelvis without Cont IMPRESSION: There is no definite acute abnormality. Mild splenomegaly. Electronically Signed: Herve Henriquez MD at 17:22 EST , Service support ,
--- NOTE | 2019-07-09 16:22 | ED.DCSUM_ITS ---
History of Present Illness Chief Complaint: Abd Pain Informant: Patient Onset: Days - 5 Narrative: Increasing right upper quadrant bulging and pain over the past 5 days. History of liver transplant a year ago in [facility] for history of [place]. She is on immunosuppressants. Reports 2 months ago had a fall with rib fracture, also reports doing some heavy lifting approximately month ago. States bulge has been increasing. Normal bowel movements. No nausea or vomiting. No urinary symptoms. History of cholecystectomy in the past. Prior similar symptoms: No Past Medical History - Allergies and Home Meds Allergies/Adverse Reactions: Allergies sulfamethoxazole [From Bactrim] Allergy (Verified 07/09/19 15:24) Fever and skin rash trimethoprim [From Bactrim] Allergy (Verified 07/09/19 15:24) Fever and skin rash diphenhydramine HCl [From Benadryl] Adverse Reaction (Verified 07/09/19 15:24) climb the rose CLIMB THE ROSE lorazepam [From Ativan] Adverse Reaction (Verified 07/09/19 15:24) Climb the rose SHE FEELS LIKE SHE WANTS TO CLIMB THE ROSE prochlorperazine edisylate [From Compazine] Adverse Reaction (Verified 07/09/19 15:24) climb the rose CLIMB THE ROSE prochlorperazine maleate [From Compazine] Adverse Reaction (Verified 07/09/19 15:24) climb out of my body CLIMB OUT OF MY BODY promethazine HCl [From Phenergan] Adverse Reaction (Verified 07/09/19 15:24) climb the rose CLIMB THE ROSE topiramate [From Topamax] Adverse Reaction (Verified 07/09/19 15:24) Other tramadol Adverse Reaction (Verified 07/09/19 15:24) climb the rose feels like going to climb rose Primary Care Physician: Anna Meza NP-C [Primary Care Provider] - Past Medical History: - - Jewell, asthma, migraines, anxiety, seizures Surgical History: cholecystectomy, hysterectomy, total knee arthroplasty, - - cholecystectomy, partial hysterectomy, right shoulder replacement secondary to fall secondary to seizure, bilateral knee arthroscopic, liver transplant Smoking Status: Never smoker - Family History Maternal Family History: Reports: COPD Paternal Family History: Reports: Heart Disease - CHF, - - Liver disease, alcoholism Sibling Family History: Reports: Heart Disease, Stroke, - - cirrhosis Review of Systems General: Denies: Chills, Fever, Sweats Eyes: Denies: Visual changes - bilaterally, Diplopia ENT: Denies: Rhinorrhea, Sore throat Cardiovascular: Denies: Chest pain, Palpitations Respiratory: Denies: Dyspnea, Cough, Dyspnea on exertion Gastrointestinal: Reports: Abdominal pain. Denies: Nausea, Vomiting, Diarrhea, Melena, Hematochezia Genitourinary: Denies: Dysuria, Hematuria, Frequency Musculoskeletal: Denies: Back pain, Extremity Pain Skin: Denies: Rash, Wounds Neurological: Denies: Headache, Weakness, Numbness Physical Exam Vital Signs/Narrative: Vital Signs Temp Pulse Resp BP Pulse Ox 07/09/19 15:24 98.6 F 93 16 155/95 H 98 Inital Vital Signs reviewed: Yes General: Well nourished, Well developed, - - Uncomfortable Head: Normocephalic, Atraumatic Eyes: Perrl, EOMI ENT: Moist mucous membranes, No rhinorrhea Neck: Supple, Nontender Cardiovascular: Regular rate, Regular rhythm, No murmurs Respiratory: No distress, CTA bilaterally, Chest nontender Abdomen: Soft, Nondistended, Normal bowel sounds, - - There is L-shaped incision right upper quadrant midline across right upper quadrant, there is a slight linear incision location of previous cholecystectomy. There is tenderness mid corner with no mass palpated. Back: Nontender, Normal Inspection Extremities: Nontender, No edema Skin: Normal color, No rash Neurological: Alert, Oriented x3, Cranial nerves II-XII grossly intact, Normal Strength, Normal Sensation Psychological: Normal affect, Normal Mood Diagnostic/Tx/Re-eval Clinical Impression(s) from Imaging Studies Abdomen/Pelvis CT 07/09/19 16:17 IMPRESSION: There is no definite acute abnormality. Mild splenomegaly. Electronically Signed: Herve Henriquez MD at 17:22 EST , Service support , Fat-containing ventral hernia. Umbilical hernia. Stable remote compression fractures of L1-L2. - Medical Decision Making Patient tenderness along mid incision at the angle. No definitive or gross bulging. With her history and surgeries concerns for incisional hernia causing her symptoms. Treated with oxycodone, noncontrast CT does report a incisional ventral hernia in the region of her pain. This fat-containing. She has been abnormal bowel movements. She is given a copy of her image studies on a disc, she will contact her surgeon for outpatient follow-up and management. She will avoid heavy lifting. Short prescription for oxycodone to use as needed. ED Disposition - Plan for ED Patient: Disposition: Home or Assisted Living Diagnosis: Ventral hernia Instructions: HERNIA (Inguinal, Ventral, Umbilical) Prescriptions: Oxycodone HCl 5 mg PO Q6H PRN PRN #12 tablet PRN Reason: Pain Score 6-10/10 Transmission Status: Sent to [facility] #30 Referrals: Anna Meza, YARIEL-C [Primary Care Provider] - Additional Instructions: Small fat-containing umbilical hernia along with ventral hernia along your inci harini. Follow-up with your surgeon, take image studies to your surgeon.
[2019-07-09 16:25] LABS: Red Blood Cells-Urine 0-5 SEEN /hpf (0-5); Squamous Epithelial Cells - UA 0-5 SEEN /hpf (5-10)
[2019-07-09] MEDS: oxyCODONE 5 MG Tablet PO (16:34)
[2019-07-09 16:41] VITALS: BP 134/107; PULSE 84; RESP 14; O2SAT 97
[2019-07-09 18:09] VITALS: BP 117/82; PULSE 79; RESP 16; O2SAT 98
== END 2019-07-09 18:11 | disposition home or self-care (01) ==
PROVIDERS: Emergency Provider Emergency Medicine; PCP Nurse Practitioner Primary Care
DX: K43.9 Ventral hernia without obstruction or gangrene (principal); K42.9 Umbilical hernia without obstruction or gangrene; S22.39XA Fracture of one rib, unspecified side, initial encounter for closed fracture; W19.XXXA Unspecified fall, initial encounter; Y93.9 Activity, unspecified; Y92.9 Unspecified place or not applicable; K75.81 Nonalcoholic steatohepatitis (NASH); F41.9 Anxiety disorder, unspecified; J45.909 Unspecified asthma, uncomplicated; G43.909 Migraine, unspecified, not intractable, without status migrainosus; G40.909 Epilepsy, unspecified, not intractable, without status epilepticus; Z94.4 Liver transplant status; Z90.49 Acquired absence of other specified parts of digestive tract; Z79.82 Long term (current) use of aspirin; Z79.899 Other long term (current) drug therapy
CPT/HCPCS: 74176; 81001; 99282

== ENCOUNTER 2019-07-19 10:28 | Outpatient (RCR) | payer MEDICARE, MEDICAID, SELFPAY ==
[2019-07-19 11:14] LABS: Absolute Lymphocyte Count 1.54 X10^3/uL (0.83-4.51); Absolute Neutrophil Count 4.8 X10^3/uL (2.0-7.7); Basophil# 0.02 X10^3/uL; Basophil% 0.3 % (0-1); Eosinophil# 0.08 X10^3/uL; Eosinophils% 1.2 % (0-5); Hematocrit 38.5 % (37-47); Hemoglobin 12.9 g/dL (12.0-15.0); Lymphocyte # 1.54 X10^3/ul (4.0); Lymphocyte % 22.4 % (19-41); Mean Corp Hgb Conc 33.5 g/dL (32-36); Mean Corpuscular Hgb 26.8 pg (27.0-32.0); Mean Platelet Vol. 10.3 fl (6.2-12.0); Monocyte# 0.43 X10^3/uL; Monocyte% 6.3 % (0-10); NRBC Flagged by Analyzer 0 % (0-5); Neutrophil # 4.76 X10^3/uL (2.7-7.7); Neutrophil % 69.4 % (47-70); POSITIVE COUNT YES; Platelet Count 99 K/mm3 (150-450); RBC Distribution Width CV 14.8 % (11.6-14.6); RBC Distribution Width SD 42.3 fl (35.1-43.9); Red Blood Count 4.81 M/mm3 (4.2-5.4); White Blood Count 6.9 K/mm3 (4.4-11.0)
[2019-07-19 11:37] LABS: ALB/GLOB Ratio 0.9 RATIO (0.9-2.4); AST(SGOT) 18 U/L (15-37); Alanine Aminotransfer ALT/SGPT 22 U/L (13-56); Albumin, Serum 3.6 g/dL (3.2-5.0); Alkaline Phosphatase 135 U/L (45-117); Anion Gap 6 (5-15); BUN 12 mg/dL (7-18); BUN/Creat Ratio 15.7 RATIO (10-20); Bilirubin, Direct 0.12 mg/dL (0.00-0.30); Calcium,Total 8.8 mg/dL (8.5-10.1); Chloride 105 mmol/L (98-107); Creatinine, Serum 0.76 mg/dL (0.55-1.02); EST Glomerular Filtration Rate 85 mL/min (>60); Est Glom Filt Rate - Afr Amer 102 mL/min (>60); Glucose 141 mg/dL (74-106); Potassium 4.1 mmol/L (3.5-5.1); Protein, Total 7.6 g/dL (6.4-8.2); Sodium Level 137 mmol/L (136-145)
[2019-07-21 13:51] LABS: Tacrolimus (FK506) 5.7 ng/mL (2.0-20.0)
== END 2019-07-19 18:00 | disposition home or self-care (01) ==
LOC: LAB 10:28
PROVIDERS: Family Provider Nurse Practitioner Primary Care; PCP Nurse Practitioner Primary Care
DX: Z94.4 Liver transplant status (principal); D89.9 Disorder involving the immune mechanism, unspecified
CPT/HCPCS: 36415; 80053; 80197; 82248; 85025

== ENCOUNTER → 2019-07-30 06:44 | Outpatient (CLI) | payer MEDICARE, OTHER, SELFPAY ==
[2019-07-09 15:24] VITALS: BMI 28.8
--- NOTE | 2019-07-30 10:43 | STRESSREP_ITS ---
Stress Test Report Pharmacologic myocardial perfusion stress test. 54-year-old lady with a history of chest pain. Stress protocol: Resting EKG demonstrates normal sinus rhythm with a rate of 80 bpm normal intervals are noted resting blood pressures 128/90 mmHg. 0.4 mg of regadenoson was infused per usual protocol followed Intravenous saline flush injection continuous it applications developer was performed. The maximum heart rate attained was 93 bpm which was 61% of maximum predicted heart rate the maximum workload was 1 metabolic equivalent. At rest there were no ST or T wave changes noted suggest abnormal flow reserve at peak infusion nonspecific ST-T wave changes were noted suggest abnormal flow reserve. The resting blood pressure is 128/90. Myocardial perfusion protocol. 11.0 mCi of technetium 99m sestamibi was injected at rest. 0.4 mg of regadenoson was infused per usual protocol peak infusion 36.0 mCi of technetium 99m sestamibi was injected stress images were obtained stress and rest images were reconstructed and compared in the short axis vertical long horizontal long axis. Gated images also obtained per Perfusion SPECT analysis: Review of the stress images demonstrate normal uptake of tracer noted in all areas of the myocardium the rest images similar demonstrate normal uptake of tracer noted in all areas of myocardium. No reversibility is noted suggest ischemia. Gated SPECT analysis: The gated ejection fraction 75% per Conclusion: Normal pharmacologic myocardial perfusion stress test. Preserved ejection fraction.
== END ==
PROVIDERS: PCP Nurse Practitioner Primary Care
DX: Z01.810 Encounter for preprocedural cardiovascular examination (principal)
CPT/HCPCS: 78452; 93017; A9500; A4216; J2785

== ENCOUNTER 2019-08-20 13:41 | Emergency (ER) | payer MEDICARE, OTHER, MEDICAID, SELFPAY ==
[2019-08-20 13:42] VITALS: BP 116/71; PULSE 94; RESP 18; TEMP 35.9; O2SAT 96; BMI 28.3
[2019-08-20 14:23] VITALS: RESP 16
--- NOTE | 2019-08-20 15:02 | EKG12_ITS ---
Test Reason : GENILLNESS Blood Pressure : / mmHG Vent. Rate : 080 BPM Atrial Rate : 080 BPM P-R Int : 148 ms QRS Dur : 082 ms QT Int : 368 ms P-R-T Axes : 021 -09 038 degrees QTc Int : 424 ms Normal sinus rhythm Low voltage QRS Inferior infarct , age undetermined Cannot rule out Anterior infarct , age undetermined Abnormal ECG Confirmed by MOE BROOKS, SHLOMO ([id number]), department editor JOSH CHACKO ([id number]) on 08/23/2019 3:28:10 PM Referred By: RADHA Confirmed By:SHLOMO ROSA MD
[2019-08-20 15:17] VITALS: BP 135/80; PULSE 82; RESP 16; TEMP 37.3; O2SAT 100
[2019-08-20] MEDS: 0.9% Normal Saline 1,000 ML 1000 ML IV (15:17)
[2019-08-20] MEDS: Ondansetron 4 MG/2 ML Vial IV (15:22)
[2019-08-20] MEDS: morphine 8 MG/ML Syringe 6 MG IV (15:24)
[2019-08-20 15:28] LABS: Absolute Lymphocyte Count 1.56 X10^3/uL (0.83-4.51); Absolute Neutrophil Count 5.6 X10^3/uL (2.0-7.7); Basophil# 0.04 X10^3/uL; Basophil% 0.5 % (0-1); Eosinophil# 0.45 X10^3/uL; Eosinophils% 5.4 % (0-5); Hematocrit 36.5 % (37-47); Hemoglobin 12.2 g/dL (12.0-15.0); Lymphocyte # 1.56 X10^3/ul (4.0); Lymphocyte % 18.8 % (19-41); Mean Corp Hgb Conc 33.4 g/dL (32-36); Mean Corpuscular Hgb 27.4 pg (27.0-32.0); Mean Corpuscular Volume 81.8 fL (81-99); Mean Platelet Vol. 10.4 fl (6.2-12.0); Monocyte# 0.63 X10^3/uL; Monocyte% 7.6 % (0-10); NRBC Flagged by Analyzer 0 % (0-5); Neutrophil # 5.56 X10^3/uL (2.7-7.7); Neutrophil % 66.9 % (47-70); Platelet Count 155 K/mm3 (150-450); RBC Distribution Width CV 14.7 % (11.6-14.6); RBC Distribution Width SD 43.6 fl (35.1-43.9); Red Blood Count 4.46 M/mm3 (4.2-5.4); White Blood Count 8.3 K/mm3 (4.4-11.0)
[2019-08-20 15:46] LABS: AST(SGOT) 21 U/L (15-37); Alanine Aminotransfer ALT/SGPT 20 U/L (13-56); Albumin, Serum 3.3 g/dL (3.2-5.0); Alkaline Phosphatase 147 U/L (45-117); Anion Gap 4 (5-15); BUN 10 mg/dL (7-18); BUN/Creat Ratio 13.1 RATIO (10-20); Bilirubin, Direct 0.21 mg/dL (0.00-0.30); Chloride 110 mmol/L (98-107); Creatinine, Serum 0.76 mg/dL (0.55-1.02); EST Glomerular Filtration Rate 85 mL/min (>60); Est Glom Filt Rate - Afr Amer 102 mL/min (>60); Estimated Creatinine Clearance 77.92 ml/min; Globulin 4.2 g/dL (2.2-4.2); Glucose 120 mg/dL (74-106); Lipase 60 U/L (73-393); Potassium 3.8 mmol/L (3.5-5.1); Protein, Total 7.5 g/dL (6.4-8.2); Sodium Level 140 mmol/L (136-145)
[2019-08-20 16:30] LABS: Bacteria 0 SEEN /hpf (None Seen); Mucous, Urine 0 SEEN /hpf (<or=2+); Red Blood Cells-Urine 0 SEEN /hpf (0-5)
[2019-08-20 16:34] LABS: Color, Urine Yellow (Yellow); Glucose, Dipstick Normal (Normal); Ketone-Dipstick Negative (Negative); Leukocyte Esterase-Dipstick 100 /ul (Negative); Nitrite-Dipstick Negative (Negative); Occult Blood-Urine Negative /ul (Negative); Protein-Dipstick Negative (Negative); Specific Gravity, Urine 1.015 (1.002-1.030); Urine Bilirubin Dipstick Negative (Negative); Urine Clarity Sl. Cloudy (Clear); Urine Urobilinogen Normal (Normal)
[2019-08-20 16:42] LABS: Squamous Epithelial Cells - UA 0-5 SEEN /hpf (5-10); White Blood Cells 0-5 SEEN /hpf (0-5)
[2019-08-20 16:45] VITALS: BP 125/89; PULSE 82; RESP 16; TEMP 36.7; O2SAT 98
--- NOTE | 2019-08-20 16:48 | ED.DCSUM_ITS ---
History of Present Illness Chief Complaint: Nausea/Vomiting/Diarrhea Informant: Patient Onset: Days Context: Gradual Onset Narrative: Patient is a 54-year-old female with still history of liver transplant on Prograf and CellCept as well as recent abdominal hernia repair 1 week ago at [facility] presenting with concern for dehydration. Patient states she has had difficulty with pain control since her surgery. She is been taking Percocet but ran out at 3 AM. In addition she has had associated nausea but no vomiting as well as diarrhea. She denies any black or blood in her stool. She said decreased oral intake. Patient has abdominal pain over her hernia sites which was over her umbilicus and in her right upper quadrant. She does have pain at her surgical sites but states that it has not significantly changed. She is also concerned because since her surgery was in [facility] she can receive more pain medications is to go to [place] which is not realistic for her. Patient denies any other complaints at this time including chest pain or difficulty breathing. Past Medical History - Allergies and Home Meds Allergies/Adverse Reactions: Allergies sulfamethoxazole [From Bactrim] Allergy (Verified 08/20/19 13:44) Fever and skin rash trimethoprim [From Bactrim] Allergy (Verified 08/20/19 13:44) Fever and skin rash diphenhydramine HCl [From Benadryl] Adverse Reaction (Verified 08/20/19 13:44) [facility] lorazepam [From Ativan] Adverse Reaction (Verified 08/20/19 13:44) Climb [facility] SHE FEELS LIKE SHE WANTS TO CLIMB THE ROSE prochlorperazine edisylate [From Compazine] Adverse Reaction (Verified 08/20/19 13:44) [facility] prochlorperazine maleate [From Compazine] Adverse Reaction (Verified 08/20/19 13:44) climb out of my body CLIMB OUT OF MY BODY promethazine HCl [From Phenergan] Adverse Reaction (Verified 08/20/19 13:44) [facility] [place] [facility] topiramate [From Topamax] Adverse Reaction (Verified 08/20/19 13:44) Other tramadol Adverse Reaction (Verified 08/20/19 13:44) climb the rose feels like going to climb rose Primary Care Physician: Anna Meza NP-C [Primary Care Provider] - Past Medical History: - - Liver transplant, Anxiety, migraines, esophageal varices Surgical History: cholecystectomy, hysterectomy, total knee arthroplasty, - - cholecystectomy, partial hysterectomy, right shoulder replacement secondary to fall secondary to seizure, bilateral knee arthroscopic, liver transplant Smoking Status: Never smoker - Family History Maternal Family History: Reports: COPD Paternal Family History: Reports: Heart Disease - CHF, - - Liver disease, alcoholism Sibling Family History: Reports: Heart Disease, Stroke, - - cirrhosis Review of Systems General: Reports: Malaise, - - Anorexia. Denies: Chills, Fever, Sweats Eyes: Denies: Visual changes - bilaterally, Diplopia ENT: Denies: Rhinorrhea, Sore throat Cardiovascular: Denies: Chest pain, Palpitations Respiratory: Denies: Dyspnea, Cough, Sputum, Dyspnea on exertion Gastrointestinal: Reports: Abdominal pain, Nausea, Diarrhea. Denies: Vomiting, Melena, Hematochezia Genitourinary: Denies: Dysuria, Hematuria, Frequency Musculoskeletal: Denies: Back pain, Extremity Pain Skin: Denies: Rash, Wounds Neurological: Denies: Headache, Weakness, Numbness Physical Exam Vital Signs/Narrative: Vital Signs Temp Pulse Resp BP Pulse Ox 08/20/19 15:17 99.2 F H 82 16 135/80 H 100 08/20/19 14:23 16 08/20/19 13:42 96.7 F L 94 18 116/71 96 Inital Vital Signs reviewed: Yes General: Well nourished, Well developed, No Acute Distress Head: Normocephalic, Atraumatic Eyes: Perrl, EOMI ENT: Moist mucous membranes, No rhinorrhea Neck: Supple, Nontender, No JVD Cardiovascular: Regular rate, Regular rhythm, No murmurs Respiratory: No distress, CTA bilaterally, Chest nontender Abdomen: Soft, Nondistended, Normal bowel sounds, Tender - Appropriate diffuse postsurgical tenderness of the abdomen, - - Abdominal incisions from recent surgery I have Dermabond on them and appear to be in normal stages of healing. Negative for: Guarding, Rebound tenderness Back: Nontender, Normal Inspection. Negative for: CVA tenderness, Spinal tenderness Extremities: Nontender, No edema Skin: Normal color, No rash Neurological: Alert, Oriented x3, Cranial nerves II-XII grossly intact, Normal Strength, Normal Sensation Psychological: Normal affect, Normal Mood Diagnostic/Tx/Re-eval Laboratory Data 08/20/19 08/20/19 08/20/19 15:10 15:10 16:27 WBC 8.3 RBC 4.46 Hgb 12.2 Hct 36.5 L MCV 81.8 MCH 27.4 MCHC 33.4 RDW Std Deviation 43.6 RDW Coeff of Nicole 14.7 H Plt Count 155 MPV 10.4 Immature Gran % (Auto) 0.800 Neut % (Auto) 66.9 Lymph % (Auto) 18.8 L [place] % (Auto) 7.6 Eos % (Auto) 5.4 H Baso % (Auto) 0.5 Absolute Neuts (auto) 5.6 Absolute Lymphs (auto) 1.56 Nucleated RBC % 0 Sodium 140 Potassium 3.8 Chloride 110 H Carbon Dioxide 26.0 Anion Gap 4 L BUN 10 Creatinine 0.76 Estim Creat Clear Calc 77.92 Est GFR (MDRD) Af Amer 102 Est GFR (MDRD) Non-Af 85 BUN/Creatinine Ratio 13.1 Glucose 120 H Calcium 9.0 Total Bilirubin 0.60 Direct Bilirubin 0.21 AST 21 ALT 20 Alkaline Phosphatase 147 H Troponin I < 0.015 Total Protein 7.5 Albumin 3.3 Globulin 4.2 Lipase 60 L Urine Color Yellow Urine Clarity Sl. Cloudy Urine pH 6.0 Ur Specific [place] 1.015 Urine Protein Negative Urine Glucose (UA) Normal Urine Ketones Negative Urine Occult Blood Negative Urine Nitrite Negative Urine Bilirubin Negative Urine Urobilinogen Normal Ur Leukocyte Esterase 100 H Urine RBC 0 SEEN Urine WBC 0-5 SEEN Ur Squamous Epith Cells 0-5 SEEN Urine Bacteria 0 SEEN Urine Mucus 0 SEEN - Rhythm Strip Rhythm Strip: Sinus Rhythm Rate: 80 Ectopy: None - EKG Initial EKG Interpretation: Sinus Rhythm, - - Sinus rhythm at a rate of 80 Low voltage QRS Normal axis Normal ST segments - Medical Decision Making Patient is evaluated for nausea and worsening postoperative pain. Her surgery was at [facility]. Patient's concern for dehydration. She does not look significantly dehydrated and her vital signs are normal. Patient is given IV fluids and check basic screening labs including BMP, CBC and liver panel. She does not have any significant abnormalities.Her white blood cell count and her blood cell count are normal as well as her platelets. Her chloride is mildly elevated at 110 and her glucose is 120. Her kidney function is normal with a creatinine of 0.76. Her alkaline phosphatase is mildly elevated at 147 but her review shows that this used to be her baseline. Her troponin is negative and her lipase is 60. Urinalysis does not show any ketones and does have 100 leukoesterase but no bacteria and only 0-5 white blood cells. Patient was given 6 mg IV morphine as well as IV Zofran for her symptoms. Her abdomen is soft with normal postsurgical tenderness. I do not think abdominal imaging is indicated as she does not have findings consistent with any peritonitis or small bowel obstruction. On reevaluation she states she is feeling much better. I did discuss with no hand frame surgical elastic knitter from [facility], Dr. Gonzalez who is familiar with the patient. She is comfortable with us prescribing further oxycodone prescription for the patient. Patient has a follow-up appointment this coming Friday. Patient was to be discharged home with a course of Zofran. ED Disposition - Plan for ED Patient: Disposition: Home or Assisted Living Diagnosis: Postoperative abdominal pain, Nausea Instructions: POST OP WOUND CHECK, Pain Prescriptions: Oxycodone [Oxyir] 5 mg PO Q6H PRN PRN 3 Days #12 tablet PRN Reason: Pain Score 6-10/10 Transmission Status: Sent to [facility] [place] Ondansetron [Zofran Odt] 4 mg PO Q8H PRN PRN #10 tab PRN Reason: Nausea Transmission Status: Pending to [facility] [place] Referrals: Anna Meza NP-C [Primary Care Provider] - Additional Instructions: Drink plenty of fluids. Make sure you keep your follow-up appointment with your surgeon on Friday. Return the emergency room with any worsening symptoms.
--- NOTE | 2019-08-20 16:56 | NURSING ---
ATTEMPTING TO REACH DR OLIVER MEDEL, [employer] [place] SURGEON. LEFT MESSAGE ON [phone]
--- NOTE | 2019-08-20 17:10 | NURSING ---
PAGED DR MEDEL THROUGH [facility] [phone] SHE RETURNED THE CALL
[2019-08-20 17:50] VITALS: RESP 16
== END 2019-08-20 17:50 | disposition home or self-care (01) ==
PROVIDERS: Emergency Provider Emergency Medicine; PCP Nurse Practitioner Primary Care
DX: R11.0 Nausea (principal); R10.9 Unspecified abdominal pain; Z98.890 Other specified postprocedural states; R19.7 Diarrhea, unspecified; F41.9 Anxiety disorder, unspecified; G43.909 Migraine, unspecified, not intractable, without status migrainosus; Z94.4 Liver transplant status; Z79.899 Other long term (current) drug therapy
CPT/HCPCS: 80048; 80076; 81001; 83690; 84484; 85025; 93005; 96361; 96374; 96375; 99283; J7030; A4216; J2405

== ENCOUNTER 2019-11-30 10:13 | Outpatient (RCR) | payer MEDICARE, OTHER, SELFPAY ==
[2019-11-30 10:58] LABS: Absolute Lymphocyte Count 1.43 X10^3/uL (0.83-4.51); Absolute Neutrophil Count 3.8 X10^3/uL (2.0-7.7); Basophil# 0.03 X10^3/uL; Basophil% 0.5 % (0-1); Eosinophil# 0.14 X10^3/uL; Eosinophils% 2.4 % (0-5); Hematocrit 36.6 % (37-47); Hemoglobin 12.5 g/dL (12.0-15.0); Lymphocyte # 1.43 X10^3/ul (4.0); Lymphocyte % 24.6 % (19-41); Mean Corp Hgb Conc 34.2 g/dL (32-36); Mean Corpuscular Hgb 28.5 pg (27.0-32.0); Mean Corpuscular Volume 83.4 fL (81-99); Mean Platelet Vol. 10.2 fl (6.2-12.0); Monocyte# 0.36 X10^3/uL; Monocyte% 6.2 % (0-10); NRBC Flagged by Analyzer 0 % (0-5); Neutrophil # 3.82 X10^3/uL (2.7-7.7); Neutrophil % 65.8 % (47-70); Platelet Count 105 K/mm3 (150-450); RBC Distribution Width CV 14.2 % (11.6-14.6); RBC Distribution Width SD 42.5 fl (35.1-43.9); Red Blood Count 4.39 M/mm3 (4.2-5.4); White Blood Count 5.8 K/mm3 (4.4-11.0)
[2019-11-30 11:20] LABS: AST(SGOT) 23 U/L (15-37); Alanine Aminotransfer ALT/SGPT 25 U/L (13-56); Albumin, Serum 3.4 g/dL (3.2-5.0); Alkaline Phosphatase 147 U/L (45-117); Anion Gap 10 (5-15); BUN 13 mg/dL (7-18); BUN/Creat Ratio 17.5 RATIO (10-20); Bilirubin, Direct 0.15 mg/dL (0.00-0.30); Calcium,Total 8.7 mg/dL (8.5-10.1); Chloride 103 mmol/L (98-107); Creatinine, Serum 0.74 mg/dL (0.55-1.02); EST Glomerular Filtration Rate 87 mL/min (>60); Est Glom Filt Rate - Afr Amer 106 mL/min (>60); Globulin 3.8 g/dL (2.2-4.2); Glucose 229 mg/dL (74-106); Phosphorus 3.2 mg/dL (2.5-4.9); Protein, Total 7.2 g/dL (6.4-8.2); Sodium Level 139 mmol/L (136-145)
[2019-12-03 12:32] LABS: Tacrolimus (FK506) 5.8 ng/mL (2.0-20.0)
== END 2019-11-30 18:00 ==
LOC: LAB 10:13
PROVIDERS: Family Provider Nurse Practitioner Primary Care; PCP Nurse Practitioner Primary Care
DX: Z94.4 Liver transplant status (principal); Z51.81 Encounter for therapeutic drug level monitoring
CPT/HCPCS: 36415; 80048; 80076; 80197; 84100; 85025

== ENCOUNTER 2020-01-10 08:16 | Outpatient (RCR) | payer MEDICARE, OTHER, SELFPAY ==
[2020-01-10 08:39] LABS: Absolute Lymphocyte Count 1.31 X10^3/uL (0.83-4.51); Absolute Neutrophil Count 4.5 X10^3/uL (2.0-7.7); Basophil# 0.03 X10^3/uL; Basophil% 0.5 % (0-1); Eosinophil# 0.17 X10^3/uL; Eosinophils% 2.6 % (0-5); Hematocrit 39.5 % (37-47); Hemoglobin 13.5 g/dL (12.0-15.0); Lymphocyte # 1.31 X10^3/ul (4.0); Lymphocyte % 20.3 % (19-41); Mean Corp Hgb Conc 34.2 g/dL (32-36); Mean Corpuscular Hgb 27.8 pg (27.0-32.0); Mean Corpuscular Volume 81.4 fL (81-99); Mean Platelet Vol. 10.3 fl (6.2-12.0); Monocyte# 0.38 X10^3/uL; Monocyte% 5.9 % (0-10); NRBC Flagged by Analyzer 0 % (0-5); Neutrophil # 4.54 X10^3/uL (2.7-7.7); Neutrophil % 70.2 % (47-70); Platelet Count 110 K/mm3 (150-450); RBC Distribution Width CV 13.7 % (11.6-14.6); RBC Distribution Width SD 39.8 fl (35.1-43.9); Red Blood Count 4.85 M/mm3 (4.2-5.4); White Blood Count 6.5 K/mm3 (4.4-11.0)
[2020-01-10 09:02] LABS: ALB/GLOB Ratio 0.9 RATIO (0.9-2.4); AST(SGOT) 31 U/L (15-37); Alanine Aminotransfer ALT/SGPT 30 U/L (13-56); Albumin, Serum 3.7 g/dL (3.2-5.0); Alkaline Phosphatase 177 U/L (45-117); Anion Gap 6 (5-15); BUN 16 mg/dL (7-18); BUN/Creat Ratio 20.5 RATIO (10-20); Bilirubin, Direct 0.12 mg/dL (0.00-0.30); Calcium,Total 9.1 mg/dL (8.5-10.1); Chloride 101 mmol/L (98-107); Creatinine, Serum 0.78 mg/dL (0.55-1.02); EST Glomerular Filtration Rate 82 mL/min (>60); Est Glom Filt Rate - Afr Amer 99 mL/min (>60); Glucose 317 mg/dL (74-106); Potassium 4.1 mmol/L (3.5-5.1); Protein, Total 7.7 g/dL (6.4-8.2); Sodium Level 133 mmol/L (136-145)
[2020-01-13 15:24] LABS: Tacrolimus (FK506) 3.7 ng/mL (2.0-20.0)
== END 2020-01-10 18:00 | disposition home or self-care (01) ==
LOC: LAB 08:16
PROVIDERS: Family Provider Nurse Practitioner Primary Care; PCP Nurse Practitioner Primary Care
DX: Z94.4 Liver transplant status (principal); Z51.81 Encounter for therapeutic drug level monitoring
CPT/HCPCS: 36415; 80053; 80197; 82248; 84100; 85025

== ENCOUNTER 2020-02-17 08:54 | Outpatient (RCR) | payer MEDICARE, OTHER, SELFPAY ==
[2020-02-17 09:27] LABS: Absolute Lymphocyte Count 1.46 X10^3/uL (0.83-4.51); Absolute Neutrophil Count 3.4 X10^3/uL (2.0-7.7); Basophil# 0.03 X10^3/uL; Basophil% 0.5 % (0-1); Eosinophil# 0.15 X10^3/uL; Eosinophils% 2.7 % (0-5); Hematocrit 38.3 % (37-47); Hemoglobin 12.5 g/dL (12.0-15.0); Lymphocyte # 1.46 X10^3/ul (4.0); Lymphocyte % 26.7 % (19-41); Mean Corp Hgb Conc 32.6 g/dL (32-36); Mean Corpuscular Volume 82.7 fL (81-99); Mean Platelet Vol. 10.3 fl (6.2-12.0); Monocyte# 0.41 X10^3/uL; Monocyte% 7.5 % (0-10); NRBC Flagged by Analyzer 0 % (0-5); Neutrophil % 62.2 % (47-70); Platelet Count 101 K/mm3 (150-450); RBC Distribution Width CV 13.9 % (11.6-14.6); RBC Distribution Width SD 41.3 fl (35.1-43.9); Red Blood Count 4.63 M/mm3 (4.2-5.4); White Blood Count 5.5 K/mm3 (4.4-11.0)
[2020-02-17 09:58] LABS: AST(SGOT) 32 U/L (15-37); Alanine Aminotransfer ALT/SGPT 29 U/L (13-56); Albumin, Serum 3.5 g/dL (3.2-5.0); Alkaline Phosphatase 145 U/L (45-117); Anion Gap 4 (5-15); BUN 14 mg/dL (7-18); BUN/Creat Ratio 19.3 RATIO (10-20); Bilirubin, Direct 0.14 mg/dL (0.00-0.30); Calcium,Total 8.3 mg/dL (8.5-10.1); Chloride 103 mmol/L (98-107); Creatinine, Serum 0.73 mg/dL (0.55-1.02); EST Glomerular Filtration Rate 89 mL/min (>60); Est Glom Filt Rate - Afr Amer 108 mL/min (>60); Globulin 3.5 g/dL (2.2-4.2); Glucose 209 mg/dL (74-106); Phosphorus 3.4 mg/dL (2.5-4.9); Potassium 4.1 mmol/L (3.5-5.1); Sodium Level 135 mmol/L (136-145)
[2020-02-17 15:05] LABS: Carbamazepine (Tegretol) 6.5 ug/mL (4.0-12.0)
[2020-02-17 15:07] LABS: Vitamin B12 525 pg/mL (211-911)
[2020-02-17 18:35] LABS: Thyroid Stim Hormone (TSH) 1.93 uIU/mL (0.358-3.74)
[2020-02-18 20:07] LABS: Free Kappa Light Chains 18.2 mg/L (3.3-19.4); Free Lambda Light Chains 23.1 mg/L (5.7-26.3)
[2020-02-19 14:35] LABS: Tacrolimus (FK506) 6.3 ng/mL (2.0-20.0)
== END 2020-02-17 18:00 | disposition home or self-care (01) ==
LOC: LAB 08:54
PROVIDERS: Nurse Practitioner Family; Psychiatry & Neurology Neurology; Family Provider Nurse Practitioner Primary Care; PCP Nurse Practitioner Primary Care
DX: Z94.4 Liver transplant status (principal); Z79.899 Other long term (current) drug therapy; R56.9 Unspecified convulsions; G62.9 Polyneuropathy, unspecified
CPT/HCPCS: 36415; 80048; 80076; 80156; 80197; 82607; 82746; 83883; 84100; 84443; 85025

== ENCOUNTER 2020-04-05 09:15 | Outpatient (RCR) | payer MEDICARE, OTHER, SELFPAY ==
[2020-04-05 09:52] LABS: Absolute Lymphocyte Count 1.86 X10^3/uL (0.83-4.51); Absolute Neutrophil Count 3.9 X10^3/uL (2.0-7.7); Basophil# 0.04 X10^3/uL; Basophil% 0.6 % (0-1); Eosinophil# 0.12 X10^3/uL; Eosinophils% 1.9 % (0-5); Hematocrit 40.8 % (37-47); Hemoglobin 13.5 g/dL (12.0-15.0); Lymphocyte # 1.86 X10^3/ul (4.0); Mean Corp Hgb Conc 33.1 g/dL (32-36); Mean Corpuscular Hgb 27.3 pg (27.0-32.0); Mean Corpuscular Volume 82.4 fL (81-99); Mean Platelet Vol. 9.7 fl (6.2-12.0); Monocyte# 0.45 X10^3/uL; NRBC Flagged by Analyzer 0 % (0-5); Neutrophil # 3.91 X10^3/uL (2.7-7.7); Platelet Count 116 K/mm3 (150-450); RBC Distribution Width CV 14.4 % (11.6-14.6); RBC Distribution Width SD 42.5 fl (35.1-43.9); Red Blood Count 4.95 M/mm3 (4.2-5.4); White Blood Count 6.4 K/mm3 (4.4-11.0)
[2020-04-05 10:11] LABS: Hemoglobin A1c 7.8 % (3.8-5.6)
[2020-04-05 10:33] LABS: AST(SGOT) 23 U/L (15-37); Alanine Aminotransfer ALT/SGPT 30 U/L (13-56); Albumin, Serum 3.6 g/dL (3.2-5.0); Alkaline Phosphatase 140 U/L (45-117); Anion Gap 7 (5-15); BUN 16 mg/dL (7-18); BUN/Creat Ratio 20.7 RATIO (10-20); Calcium,Total 8.5 mg/dL (8.5-10.1); Chloride 101 mmol/L (98-107); Creatinine, Serum 0.77 mg/dL (0.55-1.02); EST Glomerular Filtration Rate 83 mL/min (>60); Est Glom Filt Rate - Afr Amer 100 mL/min (>60); Glucose 212 mg/dL (74-106); Phosphorus 3.3 mg/dL (2.5-4.9); Potassium 4.4 mmol/L (3.5-5.1); Protein, Total 7.6 g/dL (6.4-8.2); Sodium Level 135 mmol/L (136-145)
[2020-04-10 10:26] LABS: Tacrolimus (FK506) 5.6 ng/mL (2.0-20.0)
== END 2020-04-05 18:00 | disposition home or self-care (01) ==
LOC: LAB 09:15
PROVIDERS: Family Provider Nurse Practitioner Primary Care; PCP Nurse Practitioner Primary Care
DX: Z94.4 Liver transplant status (principal); Z51.81 Encounter for therapeutic drug level monitoring; M81.0 Age-related osteoporosis without current pathological fracture; E11.9 Type 2 diabetes mellitus without complications
CPT/HCPCS: 36415; 80048; 80076; 80197; 82306; 83036; 84100; 85025

== ENCOUNTER 2020-04-20 13:24 | Emergency (ER) | payer MEDICARE, OTHER, SELFPAY ==
[2020-04-20] VITALS (8 sets, daily range): BP systolic 110–134; BP diastolic 66–78; PULSE 81–97; RESP 16–18; TEMP 36.4–37.1; O2SAT 98–99; BMI 29.9
--- NOTE | 2020-04-20 14:10 | RAD_ITS ---
STUDY: X-RAY CHEST REASON FOR EXAM: Female, 54 years old. FEVER, LOWER ABD PAIN TECHNIQUE: Single AP portable view of the chest. COMPARISON: Comparison is made with prior study dated 03/03/2019. FINDINGS: EKG electrodes are seen. Hyperinflation. There is no demonstrated pleural abnormality. Normal size heart. Normal mediastinum and erin. Normal visualized pulmonary arteries. Normal visualized aortic arch and descending thoracic aorta. Normal visualized thoracic spine. Normal visualized ribs, clavicles, and shoulders. There is no demonstrated abnormality of the visualized soft tissue structures of the upper abdomen. RAD/Chest 1 View (Portable) IMPRESSION: Normal x-ray examination of the chest. Electronically Signed: Terrance Kim, at 15:04 EST , Service support ,
--- NOTE | 2020-04-20 14:10 | EKG12_ITS ---
Test Reason : GENERAL ILLNESS Blood Pressure : / mmHG Vent. Rate : 080 BPM Atrial Rate : 080 BPM P-R Int : 150 ms QRS Dur : 090 ms QT Int : 400 ms P-R-T Axes : 018 -05 048 degrees QTc Int : 461 ms Normal sinus rhythm Low voltage QRS Inferior infarct , age undetermined, cannot be excluded Cannot rule out Anterior infarct , age undetermined Abnormal ECG Confirmed by TOSIN BROOKS, SCOTT ([id number]), editor map TADEO NEWTON ([id number]) on 04/24/2020 2:28:03 PM Referred By: BOB Confirmed By:SCOTT LEAHY MD
--- NOTE | 2020-04-20 14:11 | CT_ITS ---
STUDY: CT ABDOMEN AND PELVIS WITHOUT CONTRAST REASON FOR EXAM: Female, 54 years old. ABD PAIN, UTI SYMPTOMS RADIATION DOSAGE (If Supplied By Facility): CTDIvol = ( 12.83 ) mGy, DLP = ( 650.91 ) mGycm TECHNIQUE: Transaxial images were obtained from the dome of the diaphragm to the symphysis pubis without oral contrast, and without intravenous contrast. Sagittal and coronal images were reconstructed. Individualized dose optimization techniques were used for this CT. COMPARISON: Comparison is made with prior study dated 07/09/2019. FINDINGS: The visualized lung bases are unremarkable. The visualized portions of the heart are within normal limits. Normal liver. Numerous surgical clips are once again seen in the region of the clare hepatis in keeping with history of liver transplant. Status post cholecystectomy. There is moderate splenomegaly. Normal pancreas. Normal bilateral adrenal glands. Normal right kidney. Normal left kidney. There is a retroaortic left renal vein. Normal visualized stomach. Normal small intestine. There are scattered colonic diverticula consistent with diverticulosis. The appendix is visualized and appears normal. Normal abdominal aorta. Normal inferior vena cava. Normal retroperitoneum. Normal urinary bladder. Small follicle in the left ovary. Status post hysterectomy. Normal abdominal wall. Stable mild degree of loss of right superior endplates of the L1 and L2 vertebrae. CT/Abdomen/Pelvis without Cont IMPRESSION: Stable examination. No acute abnormality is seen. Electronically Signed: Terrance Kim, at 15:28 EST , Service support ,
[2020-04-20 14:25] LABS: Bacteria 0 SEEN /hpf (None Seen); Mucous, Urine 0 SEEN /hpf (<or=2+); Red Blood Cells-Urine 0 SEEN /hpf (0-5); White Blood Cells 0 SEEN /hpf (0-5)
[2020-04-20 14:27] LABS: Color, Urine Yellow (Yellow); Glucose, Dipstick Normal (Normal); Ketone-Dipstick Negative (Negative); Leukocyte Esterase-Dipstick 25 /ul (Negative); Nitrite-Dipstick Negative (Negative); Occult Blood-Urine 25 /ul (Negative); Protein-Dipstick 30 mg/dl (Negative); Specific Gravity, Urine 1.015 (1.002-1.030); Urine Bilirubin Dipstick Negative (Negative); Urine Clarity Sl. Cloudy (Clear); Urine Urobilinogen Normal (Normal)
[2020-04-20] MEDS: 0.9% Normal Saline 1,000 ML 999 ML IV (14:27)
[2020-04-20 14:33] LABS: Squamous Epithelial Cells - UA 0-5 SEEN /hpf (5-10)
[2020-04-20 14:45] LABS: Basophil# 0.03 X10^3/uL; Basophil% 0.5 % (0-1); Eosinophil# 0.11 X10^3/uL; Eosinophils% 1.8 % (0-5); Hemoglobin 12.8 g/dL (12.0-15.0); Lymphocyte % 25.8 % (19-41); Mean Corp Hgb Conc 32.8 g/dL (32-36); Mean Corpuscular Hgb 27.4 pg (27.0-32.0); Mean Corpuscular Volume 83.5 fL (81-99); Mean Platelet Vol. 9.9 fl (6.2-12.0); Monocyte# 0.43 X10^3/uL; Monocyte% 6.9 % (0-10); NRBC Flagged by Analyzer 0 % (0-5); Neutrophil % 64.5 % (47-70); Platelet Count 117 K/mm3 (150-450); RBC Distribution Width CV 14.6 % (11.6-14.6); RBC Distribution Width SD 43.8 fl (35.1-43.9); Red Blood Count 4.67 M/mm3 (4.2-5.4); White Blood Count 6.2 K/mm3 (4.4-11.0)
[2020-04-20 14:53] LABS: International Normalized Ratio 1.1; Prothrombin Time (Protime)PT. 13.6 SECONDS (11.7-14.9)
[2020-04-20 14:54] LABS: Partial Thromboplast Time 24.8 Seconds (24.1-36.2)
[2020-04-20 15:03] LABS: ALB/GLOB Ratio 0.9 RATIO (0.9-2.4); AST(SGOT) 23 U/L (15-37); Alanine Aminotransfer ALT/SGPT 26 U/L (13-56); Albumin, Serum 3.4 g/dL (3.2-5.0); Alkaline Phosphatase 118 U/L (45-117); Anion Gap 7 (5-15); BUN 7 mg/dL (7-18); BUN/Creat Ratio 10.1 RATIO (10-20); Calcium,Total 8.2 mg/dL (8.5-10.1); Chloride 109 mmol/L (98-107); Creatinine, Serum 0.69 mg/dL (0.55-1.02); EST Glomerular Filtration Rate 94 mL/min (>60); Est Glom Filt Rate - Afr Amer 114 mL/min (>60); Estimated Creatinine Clearance 85.82 ml/min; Globulin 3.6 g/dL (2.2-4.2); Glucose 185 mg/dL (74-106); Potassium 3.5 mmol/L (3.5-5.1); Sodium Level 141 mmol/L (136-145)
[2020-04-20] MEDS: Ondansetron 4 MG/2 ML Vial IV (15:08)
[2020-04-20] MEDS: Morphine 4 MG/ML Syringe IV (15:08)
[2020-04-20 15:11] LABS: Lactic Acid 2.2 mmol/L (0.4-1.9)
--- NOTE | 2020-04-20 15:40 | ED.VIS.GEN ---
History of Present Illness Chief Complaint: Complaint Narrative: Presents with flank pain, she has subjective fevers and is wondering about a urinary tract infection. 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 She denies any respiratory symptoms no cough or congestion no shortness of breath or chest pain. She has no rash. She has no neck pain stiffness or headache. No neurological symptoms. Past Medical History - Allergies and Home Meds Allergies/Adverse Reactions: Allergies sulfamethoxazole [From Bactrim] Allergy (Verified 02/17/20 13:06) Fever and skin rash trimethoprim [From Bactrim] Allergy (Verified 02/17/20 13:06) Fever and skin rash diphenhydramine HCl [From Benadryl] Adverse Reaction (Verified 02/17/20 13:06) [facility] lorazepam [From Ativan] Adverse Reaction (Verified 02/17/20 13:06) Climb [facility] SHE FEELS LIKE SHE WANTS TO CLIMB THE ROSE prochlorperazine edisylate [From Compazine] Adverse Reaction (Verified 02/17/20 13:06) [facility] prochlorperazine maleate [From Compazine] Adverse Reaction (Verified 02/17/20 13:06) climb out of my body CLIMB OUT OF MY BODY promethazine HCl [From Phenergan] Adverse Reaction (Verified 02/17/20 13:06) [facility] topiramate [From Topamax] Adverse Reaction (Verified 02/17/20 13:06) Other tramadol Adverse Reaction (Verified 02/17/20 13:06) climb the rose feels like going to climb rose Primary Care Physician: Anna Meza CONCRETE PRECAST MOULDER, CONCRETE PRECAST MOULDER-C [Primary Care Provider] - Past Medical History: - - Nonalcoholic cirrhosis Surgical History: cholecystectomy, hysterectomy, total knee arthroplasty, - - cholecystectomy, partial hysterectomy, right shoulder replacement secondary to fall secondary to seizure, bilateral knee arthroscopic, liver transplant Smoking Status: Current every day smoker - Family History Maternal Family History: Reports: COPD Paternal Family History: Reports: Heart Disease - CHF, - - Liver disease, alcoholism Sibling Family History: Reports: Heart Disease, Stroke, - - cirrhosis Review of Systems All systems negative except as indicated General: Reports: Fever Eyes: Denies: Visual changes - left ENT: Denies: Sore throat Cardiovascular: Denies: Chest pain, Palpitations Respiratory: Denies: Dyspnea, Cough Gastrointestinal: Reports: Abdominal pain, Nausea Genitourinary: Denies: Dysuria Musculoskeletal: Denies: Myalgias, Extremity Pain Skin: Denies: Rash Neurological: Denies: Headache, Weakness Psych: Denies: Depression Endocrine: Denies: Polyuria Hematologic: Denies: Easy bruising Allergy: Denies: Uticaria, Swelling of the mouth Physical Exam Vital Signs/Narrative: Vital Signs Temp Pulse Resp BP Pulse Ox 04/20/20 15:10 98.6 F 91 18 115/67 99 04/20/20 15:00 98.6 F 91 18 115/67 98 04/20/20 14:28 98.7 F 86 18 110/66 99 04/20/20 14:27 98 04/20/20 14:10 98.7 F 04/20/20 13:28 97.6 F L 97 16 134/78 H 98 04/20/20 13:25 97.6 F L 97 16 134/78 H 98 General: Well nourished, Well developed Head: Normocephalic Eyes: Perrl, EOMI ENT: Moist mucous membranes Cardiovascular: Regular rate, Regular rhythm Respiratory: No distress, CTA bilaterally Abdomen: Soft, Tender, - - Some right lower quadrant abdominal pain it is diffuse over the right-sided of the abdomen including some upper tenderness. No guarding or rebound no specific pain at McBurney's. Back: Nontender, Normal Inspection. Negative for: CVA tenderness Extremities: Nontender, No edema Skin: Normal color, No rash Neurological: Alert, Normal Strength, Normal Sensation Diagnostic/Tx/Re-eval - Medical Decision Making Patient is given analgesics and she is negative from the improved although she did require 2 doses. She has an unremarkable work-up she does have some leuk esterases she tells me this is how she feels when she has urinary tract infection because she immunocompromised I will be cautious and treat her for UTI. Regardless she still has abdominal pain but she has a normal CT I believe she needs a repeat evaluation tomorrow she can come back to the emergency department with an 12 to 24 hours she understands this and she will follow-up. If anything worsen she is to come to the ED even sooner. At this time I reevaluated her she does have some abdominal pain some pain on the side of the abdomen and near the back but not quite in the CVA region. There is no rash in that region. There are no upper respiratory symptoms. She appears well. She does have a slightly elevated lactic acid although I do not find any signs of sepsis or any significant infection I believe the lactic acid is secondary to dehydration. ED Disposition - Plan for ED Patient: Disposition: LEFT WITHOUT BEING SEEN Diagnosis: Abdominal pain Instructions: ED Acute Pain UKO, ED Flank Pain Uncertain Cause Prescriptions: Smz/Tmp Ds [Bactrim Ds] 1 tab PO BID #20 tab Transmission Status: Pending to [facility] Oxycodone HCl/Acetaminophen [Percocet 5/325] 1 tablet PO Q6H PRN PRN 3 Days #12 tablet PRN Reason: Pain Transmission Status: Sent to [facility] Ondansetron [Zofran Odt] 4 mg PO Q8H PRN PRN #10 tab PRN Reason: Nausea Transmission Status: Pending to [facility] Referrals: Anna Meza NP, CONCRETE PRECAST MOULDER-C [Primary Care Provider] - 3-5 Days Additional Instructions: RETURN TO THE ED TOMORROW FOR A REPEAT EVALUATION.
[2020-04-20] MEDS: Smz/Tmp Ds Tablet 1 TABLET PO (16:07)
[2020-04-20] MEDS: HYDROmorphone 1 MG/ML Syringe IV (16:07)
[2020-04-20 18:39] LABS: Reflex Lactate? Y
== END 2020-04-20 16:22 | disposition home or self-care (01) ==
PROVIDERS: Emergency Provider Emergency Medicine; PCP Nurse Practitioner Primary Care
DX: R10.31 Right lower quadrant pain (principal); K74.60 Unspecified cirrhosis of liver; Z94.4 Liver transplant status; Z87.440 Personal history of urinary (tract) infections; Z90.49 Acquired absence of other specified parts of digestive tract; Z79.899 Other long term (current) drug therapy; F17.200 Nicotine dependence, unspecified, uncomplicated
CPT/HCPCS: 71045; 74176; 80053; 81001; 83605; 85025; 85610; 85730; 87040; 87086; 87088; 93005; 96361; 96374; 96375; 99285; J7030; A4216; J2405

== ENCOUNTER 2020-09-12 21:43 | Emergency (ER) | payer MEDICARE, OTHER, SELFPAY ==
[2020-09-12 21:44] VITALS: BMI 28.3
[2020-09-12 21:45] VITALS: BP 148/93; PULSE 130; RESP 20; TEMP 35.8; O2SAT 95; BMI 29.3
--- NOTE | 2020-09-12 22:13 | EKG12_ITS ---
Test Reason : DYSRHYTHMIA Blood Pressure : / mmHG Vent. Rate : 114 BPM Atrial Rate : 114 BPM P-R Int : 148 ms QRS Dur : 080 ms QT Int : 358 ms P-R-T Axes : 046 -15 046 degrees QTc Int : 493 ms Sinus tachycardia Inferior infarct , age undetermined Possible Anterior infarct , age undetermined Abnormal ECG Confirmed by TOSIN BROOKS, SCOTT ([id number]), digital editor TADEO ENWTON ([id number]) on 09/14/2020 9:54:18 AM Referred By: WHITNEY Confirmed By:SCOTT LEAHY MD
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
[2020-09-12 22:30] LABS: Absolute Lymphocyte Count 2.42 X10^3/uL (0.83-4.51); Absolute Neutrophil Count 4.3 X10^3/uL (2.0-7.7); Basophil# 0.03 X10^3/uL; Basophil% 0.4 % (0-1); Eosinophil# 0.12 X10^3/uL; Eosinophils% 1.6 % (0-5); Hematocrit 36.4 % (37-47); Hemoglobin 12.6 g/dL (12.0-15.0); Lymphocyte # 2.42 X10^3/ul (4.0); Lymphocyte % 32.7 % (19-41); Mean Corp Hgb Conc 34.6 g/dL (32-36); Mean Corpuscular Hgb 27.9 pg (27.0-32.0); Mean Corpuscular Volume 80.7 fL (81-99); Mean Platelet Vol. 10.4 fl (6.2-12.0); Monocyte# 0.53 X10^3/uL; Monocyte% 7.2 % (0-10); NRBC Flagged by Analyzer 0 % (0-5); Neutrophil # 4.26 X10^3/uL (2.7-7.7); Neutrophil % 57.7 % (47-70); Platelet Count 119 K/mm3 (150-450); RBC Distribution Width CV 13.8 % (11.6-14.6); Red Blood Count 4.51 M/mm3 (4.2-5.4); White Blood Count 7.4 K/mm3 (4.4-11.0)
[2020-09-12 22:44] LABS: ALB/GLOB Ratio 1.1 RATIO (0.9-2.4); AST(SGOT) 22 U/L (15-37); Alanine Aminotransfer ALT/SGPT 27 U/L (13-56); Albumin, Serum 3.6 g/dL (3.2-5.0); Alkaline Phosphatase 100 U/L (45-117); Anion Gap 7 (5-15); BUN 7 mg/dL (7-18); BUN/Creat Ratio 9.9 RATIO (10-20); Calcium,Total 8.6 mg/dL (8.5-10.1); Chloride 106 mmol/L (98-107); Creatinine, Serum 0.71 mg/dL (0.55-1.02); EST Glomerular Filtration Rate 91 mL/min (>60); Est Glom Filt Rate - Afr Amer 111 mL/min (>60); Estimated Creatinine Clearance 79.13 ml/min; Globulin 3.3 g/dL (2.2-4.2); Glucose 206 mg/dL (74-106); Potassium 3.7 mmol/L (3.5-5.1); Protein, Total 6.9 g/dL (6.4-8.2); Sodium Level 139 mmol/L (136-145)
[2020-09-12 22:47] VITALS: PULSE 119; RESP 22; O2SAT 99
[2020-09-12] MEDS: Ketorolac 30 MG/ML Syringe IV (22:52)
[2020-09-12 22:56] LABS: Acetaminophen (Tylenol) Level < 2.0 ug/mL (10.0-30.0); Alcohol, Blood (Medical)-Serum < 3.0 mg/dL; Salicylate < 1.7 mg/dL (2.8-20.0)
--- NOTE | 2020-09-12 23:18 | ED.RN ---
CALLED [facility] TO SEE THIS PT, REPORT FAXED
[2020-09-12 23:25] VITALS: BP 153/105; PULSE 109; RESP 15; O2SAT 96
--- NOTE | 2020-09-12 23:39 | ED.RN ---
PT ON THE PHONE WITH KRISTINE FROM [facility]
[2020-09-13] VITALS: BP 146/104; PULSE 107; RESP 24; O2SAT 98
[2020-09-13] MEDS: Tacrolimus 0.5 MG Capsule 2 MG PO (00:23)
[2020-09-13] MEDS: Mycophenolate Mofetil 250 MG Capsule PO (00:23)
[2020-09-13 00:55] VITALS: BP 142/98
== END 2020-09-13 00:56 | disposition home or self-care (01) ==
PROVIDERS: Emergency Medicine; Emergency Provider Emergency Medicine; PCP Nurse Practitioner Primary Care
DX: T50.901A Poisoning by unspecified drugs, medicaments and biological substances, accidental (unintentional), initial encounter (principal); F41.9 Anxiety disorder, unspecified; J45.909 Unspecified asthma, uncomplicated; K75.81 Nonalcoholic steatohepatitis (NASH); Z63.0 Problems in relationship with spouse or partner; Z82.49 Family history of ischemic heart disease and other diseases of the circulatory system; Z88.1 Allergy status to other antibiotic agents; Z88.2 Allergy status to sulfonamides; Z88.5 Allergy status to narcotic agent; Z88.8 Allergy status to other drugs, medicaments and biological substances; Z90.49 Acquired absence of other specified parts of digestive tract; Z94.4 Liver transplant status; Z96.611 Presence of right artificial shoulder joint
CPT/HCPCS: 80053; 80329; 82077; 85025; 93005; 96372; 96374; 99285; A4216; G0480

== ENCOUNTER 2020-11-19 09:29 | Emergency (ER) | payer MEDICARE, OTHER, SELFPAY ==
[2020-11-19 09:30] VITALS: BP 163/102; PULSE 90; RESP 16; TEMP 36.1; O2SAT 98; BMI 29.1
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
--- NOTE | 2020-11-19 09:54 | RAD_ITS ---
HISTORY: Injury. TECHNIQUE: XR Shoulder Min 2 Views. # of images incl. paperwork: 5. COMPARISON: 06/24/2019. FINDINGS: BONES: No acute fracture identified. Chronic Hill-Sachs lesion with sclerosis of the humeral head. Small subacromial spur. JOINTS: No glenohumeral dislocation or acromioclavicular subluxation. Mild degenerative changes. SOFT TISSUES: Visualized left upper lung clear. RAD/Shoulder min 2 Views IMPRESSION: No acute fracture or dislocation identified. Chronic Hill-Sachs lesion and mild degenerative change of the left shoulder. at 1058 Reported and signed by: Magdalene Bella MD Electronically Signed: Magdalene Bella MD at 10:57 EDT Tel , Service support ,
[2020-11-19] MEDS: oxyCODONE 5 MG Tablet PO (10:00)
[2020-11-19] MEDS: Ondansetron ODT 4 MG Tablet 8 MG PO (10:43)
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
[2020-11-19] MEDS: Naproxen 250 MG Tablet 500 MG PO (11:42)
== END 2020-11-19 11:43 | disposition home or self-care (01) ==
LOC: ED 11:37
PROVIDERS: Emergency Provider Emergency Medicine; PCP Nurse Practitioner Primary Care
DX: S20.212A Contusion of left front wall of thorax, initial encounter (principal); S50.12XA Contusion of left forearm, initial encounter; S49.92XA Unspecified injury of left shoulder and upper arm, initial encounter; V89.2XXA Person injured in unspecified motor-vehicle accident, traffic, initial encounter; Y93.9 Activity, unspecified; Y92.9 Unspecified place or not applicable; E11.9 Type 2 diabetes mellitus without complications; F41.9 Anxiety disorder, unspecified; G40.909 Epilepsy, unspecified, not intractable, without status epilepticus; J45.909 Unspecified asthma, uncomplicated; G43.909 Migraine, unspecified, not intractable, without status migrainosus; K75.81 Nonalcoholic steatohepatitis (NASH); K44.9 Diaphragmatic hernia without obstruction or gangrene; Z94.4 Liver transplant status; Z79.82 Long term (current) use of aspirin; Z79.84 Long term (current) use of oral hypoglycemic drugs; Z79.899 Other long term (current) drug therapy
CPT/HCPCS: 71101; 73030; 99283

== ENCOUNTER 2020-11-27 11:14 | Outpatient (RCR) | payer MEDICARE, OTHER, SELFPAY ==
[2020-11-27 12:22] LABS: Hematocrit 37.9 % (37-47); Hemoglobin 12.9 g/dL (12.0-15.0); Mean Corpuscular Hgb 26.9 pg (27.0-32.0); Mean Corpuscular Volume 79.1 fL (81-99); Mean Platelet Vol. 9.9 fl (6.2-12.0); Platelet Count 138 K/mm3 (150-450); RBC Distribution Width CV 13.5 % (11.6-14.6); RBC Distribution Width SD 38.4 fl (35.1-43.9); Red Blood Count 4.79 M/mm3 (4.2-5.4)
[2020-11-27 12:40] LABS: Hemoglobin A1c 6.9 % (3.8-5.6)
[2020-11-27 13:11] LABS: ALB/GLOB Ratio 0.9 RATIO (0.9-2.4); AST(SGOT) 19 U/L (15-37); Alanine Aminotransfer ALT/SGPT 23 U/L (13-56); Albumin, Serum 3.7 g/dL (3.2-5.0); Alkaline Phosphatase 129 U/L (45-117); BUN 16 mg/dL (7-18); BUN/Creat Ratio 22.7 RATIO (10-20); Chloride 106 mmol/L (98-107); Cholesterol 190 mg/dL (200); EST Glomerular Filtration Rate 92 mL/min (>60); Est Glom Filt Rate - Afr Amer 111 mL/min (>60); Globulin 3.9 g/dL (2.2-4.2); Glucose 178 mg/dL (74-106); Protein, Total 7.6 g/dL (6.4-8.2); Sodium Level 137 mmol/L (136-145); Triglycerides 96 mg/dL
[2020-11-27 13:12] LABS: Anion Gap 8 (5-15); High Density Lipoprotein 41 mg/dL; Thyroid Stim Hormone (TSH) 0.97 uIU/mL (0.358-3.74); Very Low Density Lipoprotein 19 mg/dL (5-40)
== END 2020-11-27 18:00 | disposition home or self-care (01) ==
LOC: LAB 11:14
PROVIDERS: Family Provider Nurse Practitioner Primary Care; PCP Nurse Practitioner Primary Care
DX: Z94.4 Liver transplant status (principal); Z79.899 Other long term (current) drug therapy; Z51.81 Encounter for therapeutic drug level monitoring; M81.0 Age-related osteoporosis without current pathological fracture
CPT/HCPCS: 36415; 80053; 80061; 83036; 84443; 85027

== ENCOUNTER 2020-12-01 09:08 | Emergency (ER) | payer MEDICARE, SELFPAY ==
[2020-12-01 09:09] VITALS: BP 115/81; PULSE 96; RESP 16; TEMP 36.1; O2SAT 96; BMI 27.9
--- NOTE | 2020-12-01 09:15 | ED.RN ---
called for ekg at 0910
--- NOTE | 2020-12-01 09:17 | CT_ITS ---
STUDY: CT ABDOMEN AND PELVIS WITH CONTRAST REASON FOR EXAM: Female, 55 years old. ruq pain, h/o transplant RADIATION DOSAGE (If Supplied By Facility): CTDIvol = ( 15.27 ) mGy, DLP = ( 1473.90 ) mGycm TECHNIQUE: Transaxial images were obtained from the dome of the diaphragm to the symphysis pubis without oral contrast. IV 100mL Isovue-370 was administered. Sagittal and coronal images were reconstructed. Individualized dose optimization techniques were used for this CT. COMPARISON: 04/20/2020 FINDINGS: The visualized lung bases are unremarkable. The visualized portions of the heart are within normal limits. Normal appearance of transplanted liver with numerable surgical clips in the clare hepatis region. The gallbladder has been removed. No biliary ductal dilatation. Mildly enlarged spleen but stable when compared to prior study. Normal pancreas. Normal bilateral adrenal glands. Normal right kidney. Normal left kidney. Stomach is contracted. Normal small intestine. Normal colon. The appendix is visualized and appears normal. Normal abdominal aorta. Normal inferior vena cava. Normal retroperitoneum. Normal urinary bladder. Normal abdominal wall. There are old stable superior endplate concavities of the L1 and L2 vertebral bodies. CT/Abdomen/Pelvis W IV Cont ONLY IMPRESSION: No acute abnormality. Electronically Signed: Allison South MD at 11:33 EDT , Service support ,
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
--- NOTE | 2020-12-01 09:17 | EKG12_ITS ---
Test Reason : CP Blood Pressure : / mmHG Vent. Rate : 081 BPM Atrial Rate : 081 BPM P-R Int : 152 ms QRS Dur : 074 ms QT Int : 396 ms P-R-T Axes : 069 023 062 degrees QTc Int : 460 ms Normal sinus rhythm Normal ECG Confirmed by YNES BROOKS, MOODY ([id number]), newspaper managing editor TADEO NEWTON ([id number]) on 12/04/2020 11:05:09 A M Referred By: MICK Confirmed By:ARETHA QUICK MD
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
[2020-12-01] MEDS: Ondansetron 4 MG/2 ML Vial IV (10:23)
[2020-12-01] MEDS: fentaNYL 100 MCG/2 ML Ampul 50 MCG IV (10:24)
[2020-12-01 10:43] LABS: Absolute Lymphocyte Count 1.45 X10^3/uL (0.83-4.51); Absolute Neutrophil Count 4.8 X10^3/uL (2.0-7.7); Basophil# 0.03 X10^3/uL; Basophil% 0.4 % (0-1); Eosinophil# 0.06 X10^3/uL; Eosinophils% 0.9 % (0-5); Hematocrit 37.6 % (37-47); Hemoglobin 12.8 g/dL (12.0-15.0); Lymphocyte # 1.45 X10^3/ul (0.83-4.51); Lymphocyte % 21.2 % (19-41); Mean Corpuscular Hgb 26.9 pg (27.0-32.0); Mean Corpuscular Volume 79.2 fL (81-99); Mean Platelet Vol. 9.6 fl (6.2-12.0); Monocyte# 0.47 X10^3/uL; Monocyte% 6.9 % (0-10); NRBC Flagged by Analyzer 0 % (0-5); Neutrophil # 4.81 X10^3/uL (2.7-7.7); Neutrophil % 70.3 % (47-70); Platelet Count 140 K/mm3 (150-450); RBC Distribution Width CV 13.6 % (11.6-14.6); RBC Distribution Width SD 38.7 fl (35.1-43.9); Red Blood Count 4.75 M/mm3 (4.2-5.4); White Blood Count 6.8 K/mm3 (4.4-11.0)
[2020-12-01] MEDS: 0.9% Normal Saline 1,000 ML 1000 ML IV (10:54)
[2020-12-01 10:57] LABS: ALB/GLOB Ratio 1.1 RATIO (0.9-2.4); AST(SGOT) 14 U/L (15-37); Alanine Aminotransfer ALT/SGPT 18 U/L (13-56); Albumin, Serum 3.9 g/dL (3.2-5.0); Alkaline Phosphatase 134 U/L (45-117); Anion Gap 8 (5-15); BUN 13 mg/dL (7-18); BUN/Creat Ratio 18.6 RATIO (10-20); Calcium,Total 8.8 mg/dL (8.5-10.1); Chloride 106 mmol/L (98-107); EST Glomerular Filtration Rate 93 mL/min (>60); Est Glom Filt Rate - Afr Amer 113 mL/min (>60); Estimated Creatinine Clearance 80.26 ml/min; Globulin 3.5 g/dL (2.2-4.2); Glucose 168 mg/dL (74-106); Lipase 97 U/L (73-393); Potassium 3.9 mmol/L (3.5-5.1); Protein, Total 7.4 g/dL (6.4-8.2); Sodium Level 139 mmol/L (136-145)
[2020-12-01] MEDS: HYDROmorphone 1 MG/ML Syringe IV (11:53)
[2020-12-01 11:55] VITALS: RESP 18
[2020-12-01 12:48] VITALS: BP 138/72; RESP 16
== END 2020-12-01 12:50 | disposition home or self-care (01) ==
PROVIDERS: Emergency Provider Emergency Medicine; PCP Nurse Practitioner Primary Care
DX: R07.89 Other chest pain (principal); R06.00 Dyspnea, unspecified; R11.0 Nausea; E11.9 Type 2 diabetes mellitus without complications; F41.9 Anxiety disorder, unspecified; K75.81 Nonalcoholic steatohepatitis (NASH); K44.9 Diaphragmatic hernia without obstruction or gangrene; G40.909 Epilepsy, unspecified, not intractable, without status epilepticus; J45.909 Unspecified asthma, uncomplicated; Z94.4 Liver transplant status; Z86.73 Personal history of transient ischemic attack (TIA), and cerebral infarction without residual deficits; Z86.718 Personal history of other venous thrombosis and embolism; Z90.49 Acquired absence of other specified parts of digestive tract; Z79.51 Long term (current) use of inhaled steroids; Z79.82 Long term (current) use of aspirin; Z79.84 Long term (current) use of oral hypoglycemic drugs; Z79.899 Other long term (current) drug therapy
CPT/HCPCS: 71275; 74177; 80053; 83690; 85025; 93005; 96361; 96374; 96375; 99284; J7030; Q9967; A4216; J2405

== ENCOUNTER 2021-02-28 14:09 | Emergency (ER) | payer MEDICARE, OTHER, SELFPAY ==
[2021-02-28 14:10] VITALS: BP 121/76; PULSE 82; RESP 15; TEMP 36.7; O2SAT 98; BMI 29.7
--- NOTE | 2021-02-28 15:08 | RAD_ITS ---
HISTORY: Trauma, injury EXAMINATION/TECHNIQUE: XR Knee 3 Views: COMPARISON: None FINDINGS: BONES/JOINTS: No acute fracture or dislocation. Mild tricompartmental degenerative changes. No sclerotic or destructive changes observed. SOFT TISSUES: No soft tissue swelling or gas. No radiopaque foreign body. RAD/Knee 3 Views IMPRESSION: Degenerative changes without acute bony abnormality. at 1528 Reported and signed by: Junior Bedoya MD Electronically Signed: Junior Bedoya MD at 15:26 EDT Tel , Service support ,
--- NOTE | 2021-02-28 17:31 | EDS_ITS ---
HPI History of Present Illness Chief Complaint: Lower Extremity Injury Narrative Narrative: Patient presents with left knee pain she twisted the wrong way yesterday. She has no other injuries. She has difficulty putting weight on it. Most of the pain is lateral. [facility] Medical History Anxiety Asthma CVA (cerebral vascular accident) Diabetes DVT (deep venous thrombosis) Epilepsy FHx: cholecystectomy Hiatal hernia Migraine MARMOLEJO (nonalcoholic steatohepatitis) Home Medications sumatriptan succinate 100 mg PO BID PRN PRN 01/31/15 [History Last Taken 02/04/19 100 mg] citalopram 40 mg PO DAILY 07/29/16 [History Last Taken 02/04/19 40 mg] albuterol sulfate 1 - 2 puff INHALATION Q4H PRN PRN 02/08/18 [History Last Taken 02/03/19] mometasone-formoterol 2 puff IN QHS 02/08/18 [History Last Taken 02/03/19] buspirone 15 mg PO BID 12/25/18 [History Last Taken 02/04/19] entecavir 0.5 mg PO DAILY 12/25/18 [History Last Taken 02/04/19] calcium carbonate-vitamin D3 1 tab PO BID 02/04/19 [History Last Taken 02/04/19] aspirin 81 mg PO DAILY@0800 03/03/19 [History Last Taken Unknown] famotidine 20 mg tablet 20 mg PO DAILY tab 02/17/20 [History Last Taken Unknown] metformin 500 mg tablet 500 mg PO QHS 02/17/20 [History Last Taken Unknown] mycophenolate mofetil 250 mg capsule 250 mg PO BID 02/17/20 [History Last Taken Unknown] tacrolimus 5 mg capsule, immediate-release 2 mg PO Q12H 02/17/20 [History Last Taken Unknown] zolpidem 10 mg tablet 10 mg PO QHS 02/17/20 [History Last Taken Unknown] metformin 1,000 mg PO DAILY 09/12/20 [History Last Taken Unknown] oxybutynin chloride 5 mg PO DAILY 09/12/20 [History Last Taken Unknown] fluticasone furoate-vilanterol [Breo Ellipta] 2 ea INHALATION DAILY 11/19/20 [History Last Taken Unknown] oxycodone 5 mg PO Q6H PRN 3 Days #12 cap 11/19/20 [Rx Last Taken Unknown] oxycodone 5 mg PO Q8H PRN 3 Days #10 tab 12/01/20 [Rx Last Taken Unknown] carbamazepine 200 mg tablet 400 mg PO DAILY #60 tab 01/23/21 [Rx Last Taken Unknown] ondansetron 4 mg disintegrating tablet See Rx Instructions PO Q8H PRN #180 tab 01/23/21 [Rx Last Taken Unknown] orphenadrine citrate 100 mg tablet,extended release 100 mg PO QHS PRN #30 tab 01/23/21 [Rx Last Taken Unknown] ropinirole 1 mg tablet 1 mg PO QHS #30 tab 01/23/21 [Rx Last Taken Unknown] methocarbamol 750 mg tablet 750 mg PO TID PRN #90 tab 02/13/21 [Rx Last Taken Unknown] hydrocodone-acetaminophen 1 tab PO Q8H PRN 3 Days #10 tab 02/28/21 [Rx Last Taken Unknown] Allergy/AdvReac Type Severity Reaction Status Date / Time sulfamethoxazole Allergy Fever and Verified 02/28/21 14:10 [From Bactrim] skin rash trimethoprim [From Bactrim] Allergy Fever and Verified 02/28/21 14:10 skin rash diphenhydramine HCl AdvReac climb the Verified 02/28/21 14:10 [From Benadryl] rose lorazepam [From Ativan] AdvReac Climb the Verified 02/28/21 14:10 rose prochlorperazine edisylate AdvReac climb the Verified 02/28/21 14:10 [From Compazine] rose prochlorperazine maleate AdvReac climb out Verified 02/28/21 14:10 [From Compazine] of my body promethazine HCl AdvReac climb the Verified 02/28/21 14:10 [From Phenergan] rose topiramate [From Topamax] AdvReac Other Verified 02/28/21 14:10 tramadol AdvReac climb the Verified 02/28/21 14:10 rose Surgical History H/O liver transplant History of arthroplasty of right shoulder Liver transplant recipient Social History Smoking Status: Never smoker alcohol intake: former substance use type: does not use ROS ROS ED ROS Narrative Past medical history: Reviewed, she has had prior knee problems Medications: Reviewed Social history: Noncontributory Review of systems: Musculoskeletal: Left knee pain Skin: No abrasions or lacerations Neurological: No weakness or paresthesias Hematologic: No easy bleeding or easy bruising EXAM Physical Exam Narrative Exam Narrative: Physical exam General: Patient does not appear in significant distress . Head: Normocephalic, Atraumatic Neck: No C-spine tenderness Cardiovascular: Normal distal pulses Back: Nontender, Normal Inspection. Extremities: Left knee shows tenderness over the lateral side and the meniscus area. She has more pain with varus movement then with valgus movement. She has a normal extensor mechanism, she has no effusion and no obvious laxity on anterior posterior drawer test. Skin: No abrasions, no lacerations Neurological: Normal strength and sensation Const Vital Signs: 02/28/21 14:10 Temperature 98.0 F Temperature Source Temporal Pulse Rate 82 Respiratory Rate 15 Blood Pressure 121/76 H Blood Pressure Mean 91 Pulse Ox 98 Oxygen Delivery Method Room Air MDM MDM MDM Narrative Medical decision making narrative: Patient has an unremarkable x-ray, she likely has a meniscal injury. I will treat as such and referred to orthopedics. Radiography Diagnostic Testing: Radiology Impression Knee X-Ray 02/28/21 15:08 IMPRESSION: Degenerative changes without acute bony abnormality. at 1528 Reported and signed by: Junior Bedoya MD Electronically Signed: Junior Bedoya MD at 15:26 EDT Tel , Service support , X-ray interpreted by me and the radiologist does not show any fracture, Discharge Plan Triage Chief Complaint: Lower Extremity Injury ED Provider: Lonnie Guidry Dx/Rx/DC Orders Clinical Impression: Injury, knee Instructions: Treating?Strains and Sprains Prescriptions: New hydrocodone-acetaminophen 5-325 mg tablet 1 tab PO Q8H PRN (Reason: pain) 3 Days Qty: 10 RF: 0 No Action tacrolimus [Prograf] 5 mg capsule 2 mg PO Q12H RF: 0 mycophenolate mofetil [CellCept] 250 mg capsule 250 mg PO BID RF: 0 metformin 500 mg tablet 500 mg PO QHS RF: 0 zolpidem [Ambien] 10 mg tablet 10 mg PO QHS RF: 0 ropinirole 1 mg tablet 1 mg PO QHS Qty: 30 RF: 2 ondansetron 4 mg tablet,disintegrating See Rx Instructions PO Q8H PRN (Reason: Nausea) Qty: 180 RF: 2 orphenadrine citrate 100 mg tablet extended release 100 mg PO QHS PRN (Reason: muscle spasm) Qty: 30 RF: 3 carbamazepine 200 mg tablet 400 mg PO DAILY Qty: 60 RF: 2 methocarbamol 750 mg tablet 750 mg PO TID PRN (Reason: Muscle pain/spasm) Qty: 90 RF: 3 sumatriptan succinate 100 MG tablet 100 mg PO BID PRN PRN (Reason: Migraine Symptoms) RF: 0 citalopram 40 MG tablet 40 mg PO DAILY RF: 0 albuterol sulfate 1 INHALER inhaler 1 - 2 puff inhalation Q4H PRN PRN (Reason: breathing) RF: 0 mometasone-formoterol 13 GM HFA aerosol inhaler 2 puff IN QHS RF: 0 buspirone 5 MG tablet 15 mg PO BID RF: 0 entecavir 0.5 MG tablet 0.5 mg PO DAILY RF: 0 calcium carbonate-vitamin D3 1 EACH tablet 1 tab PO BID RF: 0 famotidine 20 mg tablet 20 mg PO DAILY RF: 0 aspirin 325 MG tablet 81 mg PO DAILY@0800 RF: 0 metformin 500 MG tablet 1,000 mg PO DAILY RF: 0 oxybutynin chloride 5 MG tablet extended release 24hr 5 mg PO DAILY RF: 0 Breo Ellipta 100-25 mcg/dose blister with device 2 ea INHALATION DAILY RF: 0 oxycodone 5 mg capsule 5 mg PO Q6H PRN (Reason: pain) 3 Days Qty: 12 RF: 0 oxycodone 5 mg tablet 5 mg PO Q8H PRN (Reason: pain) 3 Days Qty: 10 RF: 0 Primary Care Provider: Geeta Odell Referrals: Geeta Odell MD [Primary Care Provider] - Markus Nuñez DO [STAFF PHYSICIAN] - 3-5 Days
[2021-02-28] MEDS: HYDROcodone Bitartrate/Apap 5/325 Tablet PO (17:41)
== END 2021-02-28 17:51 | disposition home or self-care (01) ==
PROVIDERS: Emergency Provider Emergency Medicine; PCP Family Medicine
DX: S89.90XA Unspecified injury of unspecified lower leg, initial encounter (principal); X50.1XXA Overexertion from prolonged static or awkward postures, initial encounter; Y92.9 Unspecified place or not applicable; Y99.9 Unspecified external cause status; E11.9 Type 2 diabetes mellitus without complications; F41.9 Anxiety disorder, unspecified; G40.909 Epilepsy, unspecified, not intractable, without status epilepticus; J45.909 Unspecified asthma, uncomplicated; Z79.51 Long term (current) use of inhaled steroids; Z79.82 Long term (current) use of aspirin; Z79.84 Long term (current) use of oral hypoglycemic drugs; Z79.899 Other long term (current) drug therapy; Z86.718 Personal history of other venous thrombosis and embolism
CPT/HCPCS: 73562; 99283

== ENCOUNTER 2021-03-12 12:47 | Inpatient (IN) | payer MEDICARE, OTHER, SELFPAY ==
[2021-03-12] VITALS (12 sets, daily range): BP systolic 131–148; BP diastolic 72–89; PULSE 80–111; RESP 14–26; TEMP 36.6–37.5; O2SAT 93–100; BMI 28.3; BMI 27.6
[2021-03-12 13:55] LABS: Absolute Lymphocyte Count 1.21 X10^3/uL (0.83-4.51); Basophil# 0.01 X10^3/uL; Basophil% 0.3 % (0-1); Eosinophil# 0.01 X10^3/uL; Eosinophils% 0.3 % (0-5); Hematocrit 40.1 % (37-47); Hemoglobin 13.8 g/dL (12.0-15.0); Lymphocyte # 1.21 X10^3/ul (0.83-4.51); Lymphocyte % 34.7 % (19-41); Mean Corp Hgb Conc 34.4 g/dL (32-36); Mean Corpuscular Hgb 27.1 pg (27.0-32.0); Mean Corpuscular Volume 78.8 fL (81-99); Mean Platelet Vol. 10.5 fl (6.2-12.0); Monocyte# 0.24 X10^3/uL; Monocyte% 6.9 % (0-10); NRBC Flagged by Analyzer 0 % (0-5); Neutrophil # 1.99 X10^3/uL (2.7-7.7); Neutrophil % 56.9 % (47-70); POSITIVE COUNT YES; Platelet Count 82 K/mm3 (150-450); RBC Distribution Width CV 13.6 % (11.6-14.6); RBC Distribution Width SD 38.5 fl (35.1-43.9); Red Blood Count 5.09 M/mm3 (4.2-5.4); White Blood Count 3.5 K/mm3 (4.4-11.0)
[2021-03-12 13:57] LABS: Differential Indicated SCAN CRITERIA MET
[2021-03-12 14:12] LABS: ALB/GLOB Ratio 0.8 RATIO (0.9-2.4); AST(SGOT) 27 U/L (15-37); Alanine Aminotransfer ALT/SGPT 24 U/L (13-56); Albumin, Serum 3.4 g/dL (3.2-5.0); Alkaline Phosphatase 110 U/L (45-117); Anion Gap 10 (5-15); BUN 5 mg/dL (7-18); BUN/Creat Ratio 7.1 RATIO (10-20); Calcium,Total 8.1 mg/dL (8.5-10.1); Chloride 99 mmol/L (98-107); Creatinine, Serum 0.71 mg/dL (0.55-1.02); EST Glomerular Filtration Rate 92 mL/min (>60); Est Glom Filt Rate - Afr Amer 111 mL/min (>60); Estimated Creatinine Clearance 79.13 ml/min; Glucose 148 mg/dL (74-106); Lipase 125 U/L (73-393); Potassium 3.8 mmol/L (3.5-5.1); Protein, Total 7.4 g/dL (6.4-8.2); Sodium Level 134 mmol/L (136-145)
[2021-03-12] MEDS: Morphine 4 MG/ML Syringe IV (14:16)
[2021-03-12] MEDS: Ondansetron 4 MG/2 ML Vial IV ×3 (14:17→21:16)
[2021-03-12 14:22] LABS: Microcytosis 2+; Platelet Estimate MOD DEC (ADEQ)
[2021-03-12] MEDS: 0.9% Normal Saline 1,000 ML 1000 ML IV (14:29)
--- NOTE | 2021-03-12 14:35 | RAD_ITS ---
STUDY: X-RAY CHEST REASON FOR EXAM: Female, 55 years old. Cough. Nausea and vomiting with loss of taste and smell patient TECHNIQUE: Single AP portable view of the chest. COMPARISON: Comparison is made with prior study dated 04/20/2020. FINDINGS: EKG electrodes are seen. The lungs are clear and expanded. There is no demonstrated pleural abnormality. There is mild cardiac enlargement. Normal mediastinum and erin. Normal visualized pulmonary arteries. Normal visualized aortic arch and descending thoracic aorta. Normal visualized thoracic spine. Normal visualized ribs, clavicles, and shoulders. Surgical clips are seen in the epigastric region. RAD/Chest 1 View (Portable) IMPRESSION: Mild cardiomegaly. The lungs are clear. Electronically Signed: Terrance Kim MD at 14:54 EDT , Service support ,
[2021-03-12 14:41] LABS: Lactic Acid 2.5 mmol/L (0.4-1.9)
--- NOTE | 2021-03-12 15:50 | EX.ED.DYSGE1 ---
HPI History of Present Illness Chief Complaint: Cough Informant: patient Narrative Narrative: Patient is a 55-year-old female with past medical history including epilepsy, pseudoseizures, migraines and liver transplant performed at [facility] about 3 years ago. She is presenting today with worsening cough, nausea and vomiting. Last week and she was around her daughter who had been exposed to Covid. Patient notes she started having symptoms about 3 days ago. She has had headache, nausea, vomiting and nonproductive cough. She states between the nausea and her cough and she is not been able to take any of her medications including her antirejection medications. She feels that she is had decreased urine output and getting dehydrated. She not have her Covid vaccine. No other complaints at this time. [facility] Medical History Anxiety Asthma CVA (cerebral vascular accident) Diabetes DVT (deep venous thrombosis) Epilepsy FHx: cholecystectomy Hiatal hernia Migraine MARMOLEJO (nonalcoholic steatohepatitis) Home Medications sumatriptan succinate 100 mg PO BID PRN PRN 01/31/15 [History Last Taken 02/04/19 100 mg] citalopram 40 mg PO DAILY 07/29/16 [History Last Taken 02/04/19 40 mg] albuterol sulfate 1 - 2 puff INHALATION Q4H PRN PRN 02/08/18 [History Last Taken 02/03/19] mometasone-formoterol 2 puff IN QHS 02/08/18 [History Last Taken 02/03/19] buspirone 15 mg PO BID 12/25/18 [History Last Taken 02/04/19] entecavir 0.5 mg PO DAILY 12/25/18 [History Last Taken 02/04/19] calcium carbonate-vitamin D3 1 tab PO BID 02/04/19 [History Last Taken 02/04/19] aspirin 81 mg PO DAILY@0800 03/03/19 [History Last Taken Unknown] famotidine 20 mg tablet 20 mg PO DAILY tab 02/17/20 [History Last Taken Unknown] metformin 500 mg tablet 500 mg PO QHS 02/17/20 [History Last Taken Unknown] mycophenolate mofetil 250 mg capsule 250 mg PO BID 02/17/20 [History Last Taken Unknown] tacrolimus 5 mg capsule, immediate-release 2 mg PO Q12H 02/17/20 [History Last Taken Unknown] zolpidem 10 mg tablet 10 mg PO QHS 02/17/20 [History Last Taken Unknown] metformin 1,000 mg PO DAILY 09/12/20 [History Last Taken Unknown] oxybutynin chloride 5 mg PO DAILY 09/12/20 [History Last Taken Unknown] fluticasone furoate-vilanterol [Breo Ellipta] 2 ea INHALATION DAILY 11/19/20 [History Last Taken Unknown] oxycodone 5 mg PO Q6H PRN 3 Days #12 cap 11/19/20 [Rx Last Taken Unknown] oxycodone 5 mg PO Q8H PRN 3 Days #10 tab 12/01/20 [Rx Last Taken Unknown] carbamazepine 200 mg tablet 400 mg PO DAILY #60 tab 01/23/21 [Rx Last Taken Unknown] ondansetron 4 mg disintegrating tablet See Rx Instructions PO Q8H PRN #180 tab 01/23/21 [Rx Last Taken Unknown] orphenadrine citrate 100 mg tablet,extended release 100 mg PO QHS PRN #30 tab 01/23/21 [Rx Last Taken Unknown] ropinirole 1 mg tablet 1 mg PO QHS #30 tab 01/23/21 [Rx Last Taken Unknown] methocarbamol 750 mg tablet 750 mg PO TID PRN #90 tab 02/13/21 [Rx Last Taken Unknown] hydrocodone-acetaminophen 1 tab PO Q8H PRN 3 Days #10 tab 02/28/21 [Rx Last Taken Unknown] Allergy/AdvReac Type Severity Reaction Status Date / Time sulfamethoxazole Allergy Fever and Verified 02/28/21 14:10 [From Bactrim] skin rash trimethoprim [From Bactrim] Allergy Fever and Verified 02/28/21 14:10 skin rash diphenhydramine HCl AdvReac climb the Verified 02/28/21 14:10 [From Benadryl] rose lorazepam [From Ativan] AdvReac Climb the Verified 02/28/21 14:10 rose prochlorperazine edisylate AdvReac climb the Verified 02/28/21 14:10 [From Compazine] rose prochlorperazine maleate AdvReac climb out Verified 02/28/21 14:10 [From Compazine] of my body promethazine HCl AdvReac climb the Verified 02/28/21 14:10 [From Phenergan] rose topiramate [From Topamax] AdvReac Other Verified 02/28/21 14:10 tramadol AdvReac climb the Verified 02/28/21 14:10 rose Surgical History H/O liver transplant History of arthroplasty of right shoulder Liver transplant recipient Social History Smoking Status: Never smoker alcohol intake: former substance use type: does not use ROS ROS ED Constitutional Constitutional ED: Reports chills and malaise; Denies fever(s) Eyes Eyes: Denies change in vision ENT ENT ED: Reports sore throat; Denies ear pain or rhinorrhea Cardiovascular Cardiovascular: Reports chest pain; Denies palpitations Respiratory/Chest Respiratory/Chest: Reports cough and dyspnea; Denies dyspnea on exertion or sputum Gastrointestinal Gastrointestinal: Reports abdominal pain, nausea and vomiting; Denies constipation or diarrhea Genitourinary Genitourinary ED: Denies dysuria or hematuria Musculoskeletal Musculoskeletal: Reports myalgias; Denies arthralgias Integumentary Denies rash Neurologic Neurologic: Reports headache(s); Denies weakness Psychiatric Psychiatric: Reports anxiety; Denies depression EXAM Physical Exam Const Vital Signs: 03/12/21 12:48 03/12/21 12:53 03/12/21 12:56 Temperature 99.5 F H 99.5 F H Temperature Source Oral Oral Pulse Rate 84 88 Respiratory Rate 20 H 19 H Respiratory Effort Short of Breath Labored Respiratory Depth Normal Respiratory Pattern Tachypnea Blood Pressure 133/89 H 133/89 H Blood Pressure Mean 103 103 Pulse Ox 99 100 Oxygen Delivery Method Room Air Room Air Room Air 03/12/21 15:19 03/12/21 15:57 Temperature Temperature Source Pulse Rate 82 85 Respiratory Rate 14 26 H Respiratory Effort Respiratory Depth Respiratory Pattern Blood Pressure 131/73 H Blood Pressure Mean 92 Pulse Ox 99 Oxygen Delivery Method Room Air Positive well nourished and well developed General Appearance ED: well developed HEENT Reports normocephalic, TM's clear and dry mucous membranes atraumatic Nose: no nasal discharge External Ear: external ears normal Tympanic Membrane ED: Yes TM's clear Mouth ED: Yes moist mucous membranes normal and Yes dry mucous membranes Mouth: dry mucous membranes Eyes PERRL and EOMs intact bilaterally Neck full ROM and no meningeal signs Chest Wall inspection of chest normal Resp normal respiratory effort, normal air movement and clear to auscultation bilaterally Auscultation: Negative for wheezes Cardio regular rate, regular rhythm and no murmurs GI Palpation: soft and tender epigastric; Negative for guarding or rebound tenderness present Back/Spine no CVA tenderness Extremity normal to inspection and full ROM Neuro oriented x3, CN's II-XII intact bilaterally and no focal motor deficits Sensorium / Orientation: alert Motor Exam: Negative for general weakness Psych mental status grossly normal and thought process normal Mood & Affect: anxious Skin no rashes or lesions noted and no wounds MDM MDM MDM Narrative Medical decision making narrative: Patient is evaluated for cough and vomiting in the setting of history of liver transplant. She states she is not been able to keep down any of her antirejection medications or keep her self hydrated. Patient test positive for COVID-19 infection. She has a leukopenia and a mild thrombocytopenia which could be viral in nature. Patient does have an elevated lactate of 2.5. I suspect this is more due to dehydration but could be associate with hypoxia. There is no obvious bacterial source of infection. Chest x-rays not show any acute process. Patient is given 2 doses of IV Zofran for her nausea but continues to have severe coughing and nausea/vomiting and cannot keep down any fluids. She is given a liter of IV fluids in the ER. Should be admitted for further symptom control so that she can tolerate her medications.Patient is agreeable with this plan of care. She is given a DuoNeb to see if this will help with her coughing. Patient is given doses of IV pain medication to help with her chest pain/abdominal pain associate with her coughing. Lab Data Labs: Laboratory Results - last 24 hr 03/12/21 03/12/21 03/12/21 12:33 12:33 13:58 WBC 3.5 L RBC 5.09 Hgb 13.8 Hct 40.1 MCV 78.8 L MCH 27.1 MCHC 34.4 RDW Std Deviation 38.5 RDW Coeff of Nicole 13.6 Plt Count 82 L MPV 10.5 Immature Gran % (Auto) 0.900 Neut % (Auto) 56.9 Lymph % (Auto) 34.7 [place] % (Auto) 6.9 Eos % (Auto) 0.3 Baso % (Auto) 0.3 Absolute Neuts (auto) 2.0 Absolute Lymphs (auto) 1.21 Nucleated RBC % 0 Platelet Estimate MOD DEC Microcytosis 2+ Sodium 134 L Potassium 3.8 Chloride 99 Carbon Dioxide 25.0 Anion Gap 10 BUN 5 L Creatinine 0.71 Estim Creat Clear Calc 79.13 Est GFR (MDRD) Af Amer 111 Est GFR (MDRD) Non-Af 92 BUN/Creatinine Ratio 7.1 L Glucose 148 H Lactic Acid 2.5 H* Calcium 8.1 L Total Bilirubin 0.40 AST 27 ALT 24 Alkaline Phosphatase 110 Total Protein 7.4 Albumin 3.4 Globulin 4.0 Albumin/Globulin Ratio 0.8 L Lipase 125 Radiography Chest X-Ray - ED: 1 View, Read by ED Physician, Read by Radiologist and No Acute Disease Diagnostic Testing: Radiology Impression Chest X-Ray 03/12/21 14:35 IMPRESSION: Mild cardiomegaly. The lungs are clear. Electronically Signed: Terrance Kim MD at 14:54 EDT , Service support , Discharge Plan Triage Chief Complaint: Cough ED Provider: Sindhu Jay Dx/Rx/DC Orders Prescriptions: No Action tacrolimus [Prograf] 5 mg capsule 2 mg PO Q12H RF: 0 mycophenolate mofetil [CellCept] 250 mg capsule 250 mg PO BID RF: 0 metformin 500 mg tablet 500 mg PO QHS RF: 0 zolpidem [Ambien] 10 mg tablet 10 mg PO QHS RF: 0 ropinirole 1 mg tablet 1 mg PO QHS Qty: 30 RF: 2 ondansetron 4 mg tablet,disintegrating See Rx Instructions PO Q8H PRN (Reason: Nausea) Qty: 180 RF: 2 orphenadrine citrate 100 mg tablet extended release 100 mg PO QHS PRN (Reason: muscle spasm) Qty: 30 RF: 3 carbamazepine 200 mg tablet 400 mg PO DAILY Qty: 60 RF: 2 methocarbamol 750 mg tablet 750 mg PO TID PRN (Reason: Muscle pain/spasm) Qty: 90 RF: 3 sumatriptan succinate 100 MG tablet 100 mg PO BID PRN PRN (Reason: Migraine Symptoms) RF: 0 citalopram 40 MG tablet 40 mg PO DAILY RF: 0 albuterol sulfate 1 INHALER inhaler 1 - 2 puff inhalation Q4H PRN PRN (Reason: breathing) RF: 0 mometasone-formoterol 13 GM HFA aerosol inhaler 2 puff IN QHS RF: 0 buspirone 5 MG tablet 15 mg PO BID RF: 0 entecavir 0.5 MG tablet 0.5 mg PO DAILY RF: 0 calcium carbonate-vitamin D3 1 EACH tablet 1 tab PO BID RF: 0 famotidine 20 mg tablet 20 mg PO DAILY RF: 0 aspirin 325 MG tablet 81 mg PO DAILY@0800 RF: 0 metformin 500 MG tablet 1,000 mg PO DAILY RF: 0 oxybutynin chloride 5 MG tablet extended release 24hr 5 mg PO DAILY RF: 0 Breo Ellipta 100-25 mcg/dose blister with device 2 ea INHALATION DAILY RF: 0 oxycodone 5 mg capsule 5 mg PO Q6H PRN (Reason: pain) 3 Days Qty: 12 RF: 0 oxycodone 5 mg tablet 5 mg PO Q8H PRN (Reason: pain) 3 Days Qty: 10 RF: 0 hydrocodone-acetaminophen 5-325 mg tablet 1 tab PO Q8H PRN (Reason: pain) 3 Days Qty: 10 RF: 0 Primary Care Provider: Geeta Odell
[2021-03-12] MEDS: Ipratropium/Albuterol Sulfate 3 ML AMPUL.NEB INHALATION ×2 (15:57→20:11)
[2021-03-12] MEDS: HYDROmorphone 0.5 MG/0.5 ML SYRINGE IV (16:09)
--- NOTE | 2021-03-12 16:16 | HP.PCM.HOS_ITS ---
HPI - General General Date of Admission: 03/12/21 Date of Service: 03/12/21 Chief Complaint: Nausea, vomiting -3 days HPI Magdalena REYES, is a 55 F who presents with the above ongoing for 3 days. Patient has history of liver transplant for liver failure from fatty liver, on immunosuppressant, history of seizure disorder, unvaccinated who comes in with cough, and intractable nausea and vomiting. Patient stated that she was exposed about a week ago when her daughter's step [id number] got Covid. She started having symptoms about 3 days ago. Denied any fever or chills. She has no diarrhea. She rather has intractable nausea and vomiting and has not been able to take any of her antirejection medications. Patient symptoms were stable. She has saturating well on room air. [facility] Medical History Anxiety Asthma CVA (cerebral vascular accident) Diabetes DVT (deep venous thrombosis) Epilepsy FHx: cholecystectomy Hiatal hernia Migraine MARMOLEJO (nonalcoholic steatohepatitis) Home Medications citalopram 40 mg PO DAILY 07/29/16 [History Last Taken 03/08/21] albuterol sulfate 1 - 2 puff INHALATION Q4H PRN PRN 02/08/18 [History Last Taken 03/12/21 07:30] entecavir 0.5 mg PO DAILY 12/25/18 [History Last Taken 03/08/21] calcium carbonate-vitamin D3 1 tab PO BID 02/04/19 [History Last Taken 03/08/21] aspirin 81 mg PO DAILY@0800 03/03/19 [History Last Taken 03/08/21] mycophenolate mofetil 250 mg capsule 250 mg PO BID 02/17/20 [History Last Taken 03/11/21] tacrolimus 5 mg capsule, immediate-release 2 mg PO BID 02/17/20 [History Last Taken 03/11/21] zolpidem 10 mg tablet 10 mg PO QHS 02/17/20 [History Last Taken Unknown] metformin 500 mg PO DAILY 09/12/20 [History Last Taken 03/08/21] oxybutynin chloride 5 mg PO DAILY 09/12/20 [History Last Taken 03/08/21] fluticasone furoate-vilanterol [Breo Ellipta] 2 ea INHALATION DAILY PRN 06/06/21 [History Last Taken 03/12/21 02:00] ondansetron 4 mg disintegrating tablet See Rx Instructions PO Q8H PRN #180 tab 01/23/21 [Rx Last Taken 03/12/21 07:30] methocarbamol 750 mg tablet 750 mg PO TID PRN #90 tab 02/13/21 [Rx Last Taken 03/12/21 05:00] carbamazepine 400 mg PO QHS 03/12/21 [History Last Taken 03/11/21] hydroxyzine HCl 25 mg PO Q4H PRN PRN 03/12/21 [History Last Taken 03/08/21] omeprazole [Prilosec] 40 mg PO DAILY 03/12/21 [History Last Taken 03/12/21] ropinirole 1 mg PO QHS 03/12/21 [History Last Taken 03/11/21] Allergy/AdvReac Type Severity Reaction Status Date / Time sulfamethoxazole Allergy Fever and Verified 02/28/21 14:10 [From Bactrim] skin rash trimethoprim [From Bactrim] Allergy Fever and Verified 02/28/21 14:10 skin rash diphenhydramine HCl AdvReac climb the Verified 02/28/21 14:10 [From Benadryl] rose lorazepam [From Ativan] AdvReac Climb the Verified 02/28/21 14:10 rose prochlorperazine edisylate AdvReac climb the Verified 02/28/21 14:10 [From Compazine] rose prochlorperazine maleate AdvReac climb out Verified 02/28/21 14:10 [From Compazine] of my body promethazine HCl AdvReac climb the Verified 02/28/21 14:10 [From Phenergan] rose topiramate [From Topamax] AdvReac Other Verified 02/28/21 14:10 tramadol AdvReac climb the Verified 02/28/21 14:10 rose Family History (Updated 03/12/21 @ 20:[address] Andria Lui MD) Mother Heart disease COPD (chronic obstructive pulmonary disease) Father Chronic alcoholism Surgical History H/O liver transplant History of arthroplasty of right shoulder Liver transplant recipient Social History (Updated 03/12/21 @ 20:[address] Andria Lui MD) household members: spouse Smoking Status: Never smoker alcohol intake: former substance use type: does not use ROS ROS Narrative Constitutional: Reports: Malaise, Weakness, Fatigue. Denies: Anorexia, Chills, Fever, Night Sweats, Weight Change Eyes: Denies: Blurred vision, Cataracts, Conjunctivae Inflammation, Pain, Redness, Vision Change HEENT: Denies: Difficulty Hearing, Difficulty Swallowing, Head Aches, Hearing Changes, Sinus Congestion, Sinus Drainage Cardiovascular: Denies: Chest Pain, Orthopnea, Palpitations Respiratory: Denies: Cough, Shortness of breath at rest, Sputum production Gastrointestinal: Admits to nausea and vomiting denies: Abdominal Pain Genitourinary: Denies: Dysuria Musculoskeletal: Denies: Joint Pain, Joint stiffness, Joint swelling, Joint Tenderness Skin: Denies: Rash, Wounds Neurological: Denies: Numbness, Tingling, Focal weakness Vital Signs Vital Signs Vital Signs: 03/12/21 12:48 03/12/21 12:53 03/12/21 12:56 Temperature 99.5 F H 99.5 F H Temperature Source Oral Oral Pulse Rate 84 88 Respiratory Rate 20 H 19 H Respiratory Effort Short of Breath Labored Respiratory Depth Normal Respiratory Pattern Tachypnea Blood Pressure 133/89 H 133/89 H Blood Pressure Mean 103 103 Pulse Ox 99 100 Oxygen Delivery Method Room Air Room Air Room Air 03/12/21 15:19 03/12/21 15:57 Temperature Temperature Source Pulse Rate 82 85 Respiratory Rate 14 26 H Respiratory Effort Respiratory Depth Respiratory Pattern Blood Pressure 131/73 H Blood Pressure Mean 92 Pulse Ox 99 Oxygen Delivery Method Room Air Weight Weight: 74.843 kg Body Mass Index (BMI) 28.3 Physical Exam Narrative Physical exam: General: Alert, Oriented x3, Cooperative, No apparent distress, Well developed, not on oxygen HEENT: Atraumatic Oral: Moist Mucosa Neck: Supple Lungs: Diminished to auscultation Cardiovascular: HS I+II, regular, no murmurs Abdomen: Scar over the right upper quadrant, bowel Sounds Present, Soft, Non Tender Extremities: No edema Results Lab / Micro Data Result Diagrams: 03/12/21 12:33 03/12/21 12:33 Labs: Laboratory Results - last 24 hr 03/12/21 12:33: WBC 3.5 L, RBC 5.09, Hgb 13.8, Hct 40.1, MCV 78.8 L, MCH 27.1, MCHC 34.4, RDW Std Deviation 38.5, RDW Coeff of Nicole 13.6, Plt Count 82 L, MPV 10.5, Immature Gran % (Auto) 0.900, Neut % (Auto) 56.9, Lymph % (Auto) 34.7, [place] % (Auto) 6.9, Eos % (Auto) 0.3, Baso % (Auto) 0.3, Absolute Neuts (auto) 2.0, Absolute Lymphs (auto) 1.21, Nucleated RBC % 0, Platelet Estimate MOD DEC, Microcytosis 2+ 03/12/21 12:33: Sodium 134 L, Potassium 3.8, Chloride 99, Carbon Dioxide 25.0, Anion Gap 10, BUN 5 L, Creatinine 0.71, Estim Creat Clear Calc 79.13, Est GFR (MDRD) Af Amer 111, Est GFR (MDRD) Non-Af 92, BUN/Creatinine Ratio 7.1 L, Glucose 148 H, Calcium 8.1 L, Total Bilirubin 0.40, AST 27, ALT 24, Alkaline Ph osphatase 110, Total Protein 7.4, Albumin 3.4, Globulin 4.0, Albumin/Globulin Ratio 0.8 L, Lipase 125 03/12/21 13:58: Lactic Acid 2.5 H* Micro: Microbiology 03/12/21 13:00 Nasal Secretion SARS-CoV-2 Antigen (Rapid) - Final SARS-CoV-2 (COVID 19) Radiology Impression Chest X-Ray 03/12/21 14:35 IMPRESSION: Mild cardiomegaly. The lungs are clear. Electronically Signed: Terrance Kim MD at 14:54 EDT , Service support , Assessment & Plan Assessment/Plan (1) COVID-19 virus infection: (2) Intractable vomiting with nausea: PLAN: 1. Intractable nausea and vomiting, in a patient with COVID-19 infection Patient has multiple allergies -allergic to Phenergan, Compazine She can only take Zofran Will admit to the med/surg floor, gentle IV fluids, IV Zofran as needed 2. Acute COVID-19 pneumonia without hypoxia Will hold off on starting on dexamethasone Would encourage use of incentive spirometer 3. Lactic acidosis, admitting lactic acid 2.5, likely secondary to dehydration from #1/Metformin use 4. History of liver transplant 3 years ago, continue on home medication Continue on her home antirejection medications Will check tacrolimus levels 5. Type II DM, on Metformin, will hold Metformin Continue to monitor on insulin sliding scale Charges/Coding Visit Charges Inpatient E&M: 16943 Init Hosp L3
--- NOTE | 2021-03-12 16:25 | NURSING ---
[facility] DEHYDRATION, COVID 19
[2021-03-12] MEDS: 0.9% Saline Lock 10 ML Syringe IV (17:47)
[2021-03-12] MEDS: 0.9% Normal Saline 1,000 ML 100 ML IV (17:47)
[2021-03-12 18:03] LABS: Reflex Lactate? Y
[2021-03-12 18:33] LABS: Bacteria 0 SEEN /hpf (None Seen); Mucous, Urine 0 SEEN /hpf (<or=2+); Red Blood Cells-Urine 0 SEEN /hpf (0-5); White Blood Cells 0 SEEN /hpf (0-5)
[2021-03-12 19:05] LABS: Color, Urine Yellow (Yellow); Glucose, Dipstick Normal (Normal); Ketone-Dipstick Negative (Negative); Leukocyte Esterase-Dipstick Negative /ul (Negative); Nitrite-Dipstick Negative (Negative); Occult Blood-Urine 10 /ul (Negative); Protein-Dipstick 30 mg/dl (Negative); Specific Gravity, Urine 1.015 (1.002-1.030); Urine Bilirubin Dipstick Negative (Negative); Urine Clarity Clear (Clear); Urine Urobilinogen Normal (Normal)
[2021-03-12 19:15] LABS: Squamous Epithelial Cells - UA 0-5 SEEN /hpf (5-10)
[2021-03-12 19:24] LABS: Lactic Acid 1.5 mmol/L (0.4-1.9)
--- NOTE | 2021-03-12 21:54 | PCM.HOSP.N ---
Documented by User: Marita Monte NP-C 03/12/21 21:57 Hospitalist Note Rapid response paged overhead. Patient seizing, per nursing lasted approx. 2 min. Patient has seizures but has not been taking PO meds due to nausea. Pt given Ativan 1mg x2 along with Keppra 1gm IV x1. Pt also initiated on keppra 500mg BID while unable to tolerate PO meds. Dr. Aguilar at bedside throughout rapid response, agreeable with plan of care.
[2021-03-12] MEDS: levETIRAcetam IV 1,000 MG/100 ML BAG 400 MG IV (21:58)
[2021-03-12] MEDS: LORazepam 2 MG/ML Syringe 1 MG IV ×2 (21:58)
--- NOTE | 2021-03-12 22:34 | CM.ED ---
NOY Note Referral Source: [facility] Code Referral Reason: [facility] [employer] Code SW responded to [facility] Code. No family present. SW told staff this sign writer letterer or painter remains available if needs arise. Plan: NOY to provide emotional support if needed. Jimena MOSQUEDA
--- NOTE | 2021-03-12 23:27 | PCS.PANDOC ---
PANDEMIC DOCUMENTATION INITIATED: Date: 01/29/2021 Time: 190
[2021-03-13] VITALS (9 sets, daily range): BP systolic 107–144; BP diastolic 73–94; PULSE 86–108; RESP 18; TEMP 36.6–37.4; O2SAT 91–100
[2021-03-13] MEDS: Zolpidem Tartrate 5 MG Tablet PO ×2 (00:25→20:29)
[2021-03-13] MEDS: carBAMazepine 200 MG Tablet 400 MG PO ×2 (00:26→20:30)
[2021-03-13] MEDS: Insulin Lispro 100 UNIT/ML INSULN.PEN SC ×3 (00:26→20:52)
[2021-03-13] MEDS: Pramipexole Di-HCl 0.5 MG Tablet PO ×2 (01:04→20:30)
[2021-03-13] MEDS: 0.9% Normal Saline 1,000 ML 100 ML IV (03:48)
[2021-03-13 04:27] LABS: Bedside Glucose 236 mg/dL (70-110)
[2021-03-13] MEDS: Ondansetron 4 MG/2 ML Vial IV ×2 (04:54→11:18)
[2021-03-13 06:16] LABS: Bedside Glucose 114 mg/dL (70-110)
[2021-03-13 07:20] LABS: Absolute Lymphocyte Count 0.73 X10^3/uL (0.83-4.51); Absolute Neutrophil Count 2.5 X10^3/uL (2.0-7.7); Basophil# 0.01 X10^3/uL; Basophil% 0.3 % (0-1); Hematocrit 35.4 % (37-47); Lymphocyte # 0.73 X10^3/ul (0.83-4.51); Lymphocyte % 20.8 % (19-41); Mean Corp Hgb Conc 33.9 g/dL (32-36); Mean Corpuscular Hgb 27.1 pg (27.0-32.0); Mean Corpuscular Volume 79.9 fL (81-99); Mean Platelet Vol. 9.2 fl (6.2-12.0); Monocyte# 0.23 X10^3/uL; Monocyte% 6.6 % (0-10); NRBC Flagged by Analyzer 0 % (0-5); Neutrophil % 71.2 % (47-70); POSITIVE COUNT YES; Platelet Count 65 K/mm3 (150-450); RBC Distribution Width CV 13.5 % (11.6-14.6); RBC Distribution Width SD 39.1 fl (35.1-43.9); Red Blood Count 4.43 M/mm3 (4.2-5.4); White Blood Count 3.5 K/mm3 (4.4-11.0)
[2021-03-13 07:54] LABS: ALB/GLOB Ratio 0.8 RATIO (0.9-2.4); AST(SGOT) 33 U/L (15-37); Alanine Aminotransfer ALT/SGPT 23 U/L (13-56); Albumin, Serum 2.7 g/dL (3.2-5.0); Alkaline Phosphatase 95 U/L (45-117); Anion Gap 9 (5-15); BUN 6 mg/dL (7-18); Calcium,Total 7.1 mg/dL (8.5-10.1); Chloride 104 mmol/L (98-107); EST Glomerular Filtration Rate 136 mL/min (>60); Est Glom Filt Rate - Afr Amer 165 mL/min (>60); Estimated Creatinine Clearance 112.36 ml/min; Globulin 3.6 g/dL (2.2-4.2); Glucose 123 mg/dL (74-106); Potassium 3.5 mmol/L (3.5-5.1); Protein, Total 6.3 g/dL (6.4-8.2); Sodium Level 134 mmol/L (136-145)
--- NOTE | 2021-03-13 11:14 | CASEMGMT ---
Social Work Note Per wellness nurse questions, pt has completed HCPOA and LW and provided documents to [facility]. SW reviewed chart, both HCPOA and LW are on file. SW printed off documents and placed on pt's chart. Ashly Andrea CT TECH, [employer]S [employer]
[2021-03-13] MEDS: 0.9% Saline Lock 10 ML Syringe IV ×2 (11:17→14:59)
[2021-03-13] MEDS: Citalopram 40 MG TABLET PO (11:20)
[2021-03-13] MEDS: Oxybutynin 5 MG Tablet PO (11:21)
[2021-03-13] MEDS: Tacrolimus Anhydrous 1 MG Capsule 2 MG PO ×2 (11:21→20:36)
[2021-03-13] MEDS: Pantoprazole Sodium 40 MG Tablet PO (11:21)
[2021-03-13] MEDS: Mycophenolate Mofetil 250 MG Capsule PO ×2 (11:21→20:29)
--- NOTE | 2021-03-13 11:37 | CASEMGMT ---
Addendum entered by Liz Rice 03/13/21 14:29: Spoke with pt nurse Veronique to see if patient is feeling better for assessment. She states pt was medicated approx one hour ago. LOUISE CELESTE in to pt room. Pt states she does not feel up to the assessment. She asked this CM to return tomorrow. Will defer assessment per pt request. Original Note: RN BOOKER senior audit manager into the room for assessment, pt declines assessment stating her head is pounding. RN CM to return back later.
[2021-03-13] MEDS: Rizatriptan Benzoate 5 MG Tablet PO ×2 (13:28→23:41)
[2021-03-13 14:26] LABS: Bedside Glucose 140 mg/dL (70-110)
[2021-03-13] MEDS: Dextrose 5%/0.9% NaCl 1,000 ML 75 ML IV (14:58)
[2021-03-13] MEDS: Ipratropium/Albuterol Sulfate 3 ML AMPUL.NEB INHALATION ×2 (16:08→19:33)
--- NOTE | 2021-03-13 16:18 | PCM.PN.HOSP ---
Subjective Subjective Still some nausea and vomiting and headache. She is able to tolerate a few sips of liquids here and there but otherwise has difficulty eating. Objective Data Objective Data Vital Signs: Vital Signs Temp Pulse Resp BP Pulse Ox 98 F 95 18 119/73 95 03/13/21 14:57 03/13/21 16:09 03/13/21 16:09 03/13/21 14:57 03/13/21 16:09 Oxygen Flow Rate (L/min) 2 Oxygen Delivery Method Room Air Weight: 173 lb 1.6 oz Body Mass Index (BMI) 27.6 Intake & Output: Intake and Output for Last 24 Hours 03/12/21 03/13/21 03/14/21 03:59 03:59 03:59 Intake Total 2400 / 2400 1018.33 / 1018.33 Output Total 200 / 200 Balance 2200 / 2200 1018.33 / 1018.33 Medical Nutrition Assessment Dietitian: Malnutrition Criteria Met Start: 03/12/21 17:16 Freq: Status: Active Protocol: Document 03/12/21 17:16 ANA LAURA (Rec: 03/12/21 17:16 SLA [id number]) Nutrition Malnutrition Evidence of Malnutrition Exists Yes Malnutrition (severe): Acute Illness/Injury Evidenced By Suboptimal Energy Intake ( Severe),Weight Loss (Severe) Clinical Problem Acute Disease or Injury Related Malnutrition Etiology related to acute illness ( COVID 19) w/ nausea and vomiting Signs/Symptoms as evidenced by <50% of normal po intake x 4 days [employer] and 2 .2% wt loss in <1 wk Status Active Problem Recommendation Dietitian Recommendations/Changes Will continue liberal regular diet d/t signs and symptoms of malnutrition - once po intake consistently improved, then rec 1800 joycelyn controlled diet Lab / Micro Data Result Diagrams: 03/13/21 06:36 03/13/21 06:36 Labs: Laboratory Results - last 24 hr 03/12/21 18:15: Urine Color Yellow, Urine Clarity Clear, Urine pH 7.0, Ur Specific [place] 1.015, Urine Protein 30 H, Urine Glucose (UA) Normal, Urine Ketones Negative, Urine Occult Blood 10 H, Urine Nitrite Negative, Urine Bilirubin Negative, Urine Urobilinogen Normal, Ur Leukocyte Esterase Negative, Urine RBC 0 SEEN, Urine WBC 0 SEEN, Ur Squamous Epith Cells 0-5 SEEN, Urine Bacteria 0 SEEN, Urine Mucus 0 SEEN 03/12/21 18:48: Lactic Acid 1.5 03/12/21 22:54: POC Glucose 236 H 03/13/21 04:59: POC Glucose 114 H 03/13/21 06:36: WBC 3.5 L, RBC 4.43, Hgb 12.0, Hct 35.4 L, MCV 79.9 L, MCH 27.1, MCHC 33.9, RDW Std Deviation 39.1, RDW Coeff of Nicole 13.5, Plt Count 65 L, MPV 9.2, Immature Gran % (Auto) 1.100 H, Neut % (Auto) 71.2 H, Lymph % (Auto) 20.8, [place] % (Auto) 6.6, Eos % (Auto) 0.0, Baso % (Auto) 0.3, Absolute Neuts (auto) 2.5, Absolute Lymphs (auto) 0.73 L, Nucleated RBC % 0 03/13/21 06:36: Sodium 134 L, Potassium 3.5, Chloride 104, Carbon Dioxide 21.0, Anion Gap 9, BUN 6 L, Creatinine 0.50 L, Estim Creat Clear Calc 112.36, Est GFR (MDRD) Af Amer 165, Est GFR (MDRD) Non-Af 136, BUN/Creatinine Ratio 12.0, Glucose 123 H, Calcium 7.1 L, Total Bilirubin 0.40, AST 33, ALT 23, Alkaline Phosphatase 95, Total Protein 6.3 L, Albumin 2.7 L, Globulin 3.6, Albumin/Globulin Ratio 0.8 L 03/13/21 11:27: POC Glucose 140 H Micro: Microbiology 03/12/21 13:00 Nasal Secretion SARS-CoV-2 Antigen (Rapid) - Final SARS-CoV-2 (COVID 19) Physical Exam Const alert, oriented x3 and no apparent distress General Appearance: cooperative HEENT normocephalic and moist oral mucous membranes Eyes PERRL, EOMs intact bilaterally and conjunctivae normal Neck supple and no JVD Resp normal respiratory effort, no retractions, no use of accessory muscles and clear to auscultation bilaterally Auscultation: Negative for crackles, rales, rhonchi or wheezes Cardio regular rate, regular rhythm, S1 normal heart sound, S2 normal heart sound and no murmurs GI soft to palpation, non-tender and non-distended; Negative for hepatosplenomegaly Extremity no clubbing, cyanosis or edema Skin no rashes or lesions noted Neuro no focal motor deficits and no sensory deficits noted Psych affect normal Appearance: appropriate Assessment & Plan Assessment/Plan (1) COVID-19 virus infection: (2) Intractable vomiting with nausea: (3) Epilepsy: PLAN: 1. Nausea and vomiting secondary to COVID-19 pneumonia -She is not hypoxic therefore not initiate any Decadron or remdesivir treatment -Continue with D5NS given her dehydration has had continued nausea -Continue with Zofran and can try her on Imitrex for her migraine -Continue with incentive spirometry 2. Seizure -She does have a history of seizures however she has been unable to take her home medications for it secondary to her nausea and vomiting -We will continue with IV Keppra until she can take p.o., then we can restart her carbamazepine 3. History of liver transplant 3 years ago -Continue with her antirejection medications 4. DM2 -Continue to hold her Metformin -She is on insulin however since she is not eating we will put her on D5 normal saline and adjust insulin as necessary 5. Anxiety/depression -Stable -Continue with her home medications DVT: SCDs Charges/Coding Visit Charges Inpatient E&M: 75770 Subs Hosp L2
[2021-03-13 17:35] LABS: Bedside Glucose 152 mg/dL (70-110)
[2021-03-13] MEDS: Budesonide Respules 0.5 MG/2 ML AMPUL.NEB. INHALATION (19:33)
[2021-03-13] MEDS: Methocarbamol 750 MG Tablet PO (20:30)
[2021-03-13 22:35] LABS: Bedside Glucose 162 mg/dL (70-110)
[2021-03-13] MEDS: guaiFENesin 1,200 MG Tablet 1200 MG PO (23:42)
[2021-03-14] VITALS (7 sets, daily range): BP systolic 122–142; BP diastolic 77–86; PULSE 87–93; RESP 18–20; TEMP 36.8–37; O2SAT 92–98
[2021-03-14 06:40] LABS: Bedside Glucose 130 mg/dL (70-110)
[2021-03-14] MEDS: Budesonide Respules 0.5 MG/2 ML AMPUL.NEB. INHALATION (06:47)
[2021-03-14] MEDS: Ipratropium/Albuterol Sulfate 3 ML AMPUL.NEB INHALATION ×2 (06:47→10:51)
[2021-03-14 07:30] LABS: Absolute Lymphocyte Count 1.11 X10^3/uL (0.83-4.51); Absolute Neutrophil Count 1.7 X10^3/uL (2.0-7.7); Hematocrit 35.9 % (37-47); Hemoglobin 12.2 g/dL (12.0-15.0); Lymphocyte # 1.11 X10^3/ul (0.83-4.51); Lymphocyte % 36.5 % (19-41); Mean Corpuscular Hgb 27.1 pg (27.0-32.0); Mean Corpuscular Volume 79.8 fL (81-99); Mean Platelet Vol. 9.7 fl (6.2-12.0); Monocyte# 0.25 X10^3/uL; Monocyte% 8.2 % (0-10); NRBC Flagged by Analyzer 0 % (0-5); Neutrophil # 1.66 X10^3/uL (2.7-7.7); Neutrophil % 54.6 % (47-70); POSITIVE COUNT YES; Platelet Count 58 K/mm3 (150-450); RBC Distribution Width CV 13.7 % (11.6-14.6); RBC Distribution Width SD 39.4 fl (35.1-43.9)
[2021-03-14 07:40] LABS: Differential Indicated SCAN CRITERIA MET
[2021-03-14 08:10] LABS: Anion Gap 7 (5-15); BUN 5 mg/dL (7-18); BUN/Creat Ratio 10.8 RATIO (10-20); Calcium,Total 7.2 mg/dL (8.5-10.1); Chloride 106 mmol/L (98-107); Creatinine, Serum 0.46 mg/dL (0.55-1.02); EST Glomerular Filtration Rate 150 mL/min (>60); Est Glom Filt Rate - Afr Amer 181 mL/min (>60); Estimated Creatinine Clearance 122.13 ml/min; Glucose 139 mg/dL (74-106); Potassium 3.1 mmol/L (3.5-5.1); Sodium Level 137 mmol/L (136-145)
[2021-03-14 08:28] LABS: Platelet Estimate MOD DEC (ADEQ)
[2021-03-14] MEDS: 0.9% Saline Lock 10 ML Syringe IV (11:04)
[2021-03-14] MEDS: Ondansetron 4 MG/2 ML Vial IV (11:04)
[2021-03-14] MEDS: Methocarbamol 750 MG Tablet PO ×2 (11:07→22:50)
--- NOTE | 2021-03-14 13:10 | CASEMGMT ---
LOUISE CELESTE Assessment: Face to Face with pt for initial transition planning/care coordination assessment. LOUISE CELESTE introduced self and role at [facility], pt voices understanding and consents to assessment. Pt is A/O x4 and answers all questions appropriately at this time. Pt lying in bed with eyes closed on RA in no distress. Care providers, pharmacy, and demographics verified/updated. Admitting Dx: Acute resp failure/COVID 19 PCP: Jose R Specialists: jaimie Bunch Preferred Pharmacy: [facility] Insurance: [facility] Prescription Benefit: yes LW/HPOA: Pt has LW/DPOA on file at [facility]. Her DPOA is her Bulmaro Pratt. LNOK: Bulmaro Pratt, ; Rea Gomes dtr Living Arrangements: Pt lives with in a single story house with one step to enter. Pt reports being I in ADL's and denies concerns at home. Transportation: Pt drives self and denies concerns with transportation. DME/HHC/SNF: Pt denies having any DME in the home, previous HHC or SNF stays. Pt is disabled. Pt denies preference of DME companies should she need O2 but currently she is on RA. Pt was first tested for COVID at [facility]. Pt does have family who can provide her with groceries and supplies. Pt states no concerns with going home at time of dc. Pt states no further concerns/needs. CM to follow. Advised pt to ask CM if any further question/concerns/needs arise, voices understanding. Pt Goal: Home Plan: Home
[2021-03-14] MEDS: Mycophenolate Mofetil 250 MG Capsule PO ×2 (13:19→22:32)
[2021-03-14] MEDS: Citalopram 40 MG TABLET PO (13:19)
[2021-03-14] MEDS: guaiFENesin 1,200 MG Tablet 1200 MG PO ×2 (13:19→22:32)
[2021-03-14] MEDS: Pantoprazole Sodium 40 MG Tablet PO (13:20)
[2021-03-14] MEDS: Oxybutynin 5 MG Tablet PO (13:21)
--- NOTE | 2021-03-14 13:45 | PN.HOSP_ITS ---
Subjective Subjective Still has a headache, is the triptan did work yesterday. She denies any emesis and no diarrhea. She is still having some nausea though this is much improved. Objective Data Objective Data Vital Signs: Vital Signs Temp Pulse Resp BP Pulse Ox 98.6 F 89 20 H 122/79 H 97 03/14/21 09:45 03/14/21 10:52 03/14/21 10:52 03/14/21 09:45 03/14/21 09:45 Oxygen Flow Rate (L/min) 2 Oxygen Delivery Method Room Air Weight: 165 lb 5.547 oz Body Mass Index (BMI) 27.6 Intake & Output: Intake and Output for Last 24 Hours 03/13/21 03/14/21 03/15/21 03:59 03:59 03:59 Intake Total 2400 / 2400 2232.08 / 2232.08 Output Total 200 / 200 Balance 2200 / 2200 2232.08 / 2232.08 Medical Nutrition Assessment Dietitian: Malnutrition Criteria Met Start: 03/12/21 17:16 Freq: Status: Active Protocol: Document 03/14/21 09:41 RMA (Rec: 03/14/21 09:41 RMA [id number]) Nutrition Malnutrition Evidence of Malnutrition Exists Yes Malnutrition (severe): Acute Illness/Injury Evidenced By Suboptimal Energy Intake ( Severe),Weight Loss (Severe) Clinical Problem Acute Disease or Injury Related Malnutrition Etiology Moderate to severe protein/ calorie malnutrition in the context of acute illness ( COVID 19) related to altered GI function, ongoing poor appetite and inadequate oral intake Signs/Symptoms as evidenced by <50% of normal po intake x 4 days, ongoing inadequate oral intake meeting less than 50% estimated nutrition needs, nausea/ vomiting and 2.2% wt loss in < 1 wk. Status Active Problem Recommendation Dietitian Recommendations/Changes Will continue liberal regular diet for now d/t signs and symptoms of malnutrition and inadequate oral intake; restrict carbohydrates as intake imrpove and becomes adequate at meals. 120ml glucerna shake TID w/ meals---pt will take as tolerated; will adjust as needed. Lab / Micro Data Result Diagrams: 03/14/21 07:06 03/14/21 07:06 Labs: Laboratory Results - last 24 hr 03/13/21 11:27: POC Glucose 140 H 03/13/21 16:41: POC Glucose 152 H 03/13/21 20:51: POC Glucose 162 H 03/14/21 05:53: POC Glucose 130 H 03/14/21 07:06: WBC 3.0 L, RBC 4.50, Hgb 12.2, Hct 35.9 L, MCV 79.8 L, MCH 27.1, MCHC 34.0, RDW Std Deviation 39.4, RDW Coeff of Nicole 13.7, Plt Count 58 L, MPV 9.7, Immature Gran % (Auto) 0.700, Neut % (Auto) 54.6, Lymph % (Auto) 36.5, [place] % (Auto) 8.2, Eos % (Auto) 0.0, Baso % (Auto) 0.0, Absolute Neuts (auto) 1.7 L, Absolute Lymphs (auto) 1.11, Nucleated RBC % 0, Platelet Estimate MOD 03/14/21 07:06: Sodium 137, Potassium 3.1 L, Chloride 106, Carbon Dioxide 24.0, Anion Gap 7, BUN 5 L, Creatinine 0.46 L, Estim Creat Clear Calc 122.13, Est GFR (MDRD) Af Amer 181, Est GFR (MDRD) Non-Af 150, BUN/Creatinine Ratio 10.8, Glucose 139 H, Calcium 7.2 L Micro: Microbiology 03/12/21 13:58 Blood Culture (Wb) - Right Hand Blood Culture - Preliminary No growth in 48 hours. 03/12/21 13:00 Nasal Secretion SARS-CoV-2 Antigen (Rapid) - Final SARS-CoV-2 (COVID 19) Physical Exam Const alert, oriented x3 and no apparent distress General Appearance: cooperative HEENT normocephalic and moist oral mucous membranes Eyes PERRL, EOMs intact bilaterally and conjunctivae normal Neck supple and no JVD Resp normal respiratory effort, no retractions, no use of accessory muscles and clear to auscultation bilaterally Auscultation: Negative for crackles, rales, rhonchi or wheezes Cardio regular rate, regular rhythm, S1 normal heart sound, S2 normal heart sound and no murmurs GI soft to palpation, non-tender and non-distended; Negative for hepatosplenomegaly Extremity no clubbing, cyanosis or edema Skin no rashes or lesions noted Neuro no focal motor deficits and no sensory deficits noted Psych affect normal Appearance: appropriate Assessment & Plan Assessment/Plan (1) COVID-19 virus infection: (2) Intractable vomiting with nausea: (3) Epilepsy: PLAN: 1. Nausea and vomiting secondary to COVID-19 pneumonia -She is not hypoxic therefore not initiate any Decadron or remdesivir treatment -We will not continue with IV fluids as she is tolerating p.o. more today -Continue with Zofran and can try her on Imitrex for her migraine -Continue with incentive spirometry 2. Seizure -She does have a history of seizures however she has been unable to take her home medications for it secondary to her nausea and vomiting -We will continue with IV Keppra until she can take p.o., then we can restart her carbamazepine 3. History of liver transplant 3 years ago -Continue with her antirejection medications 4. DM2 -Continue to hold her Metformin -She is on insulin however since she is not eating we will put her on D5 normal saline and adjust insulin as necessary 5. Anxiety/depression -Stable -Continue with her home medications DVT: SCDs Charges/Coding Visit Charges Inpatient E&M: 90521 Subs Hosp L2
[2021-03-14 14:43] LABS: Magnesium 1.9 mg/dL (1.6-2.6); Phosphorus 1.3 mg/dL (2.5-4.9)
[2021-03-14] MEDS: Rizatriptan Benzoate 5 MG Tablet PO (14:47)
[2021-03-14 15:35] LABS: Bedside Glucose 137 mg/dL (70-110)
[2021-03-14] MEDS: Potassium Chloride Oral Tablet 20 MEQ 40 MEQ PO (18:05)
[2021-03-14] MEDS: Insulin Lispro 100 UNIT/ML INSULN.PEN SC (18:09)
[2021-03-14 18:50] LABS: Bedside Glucose 150 mg/dL (70-110)
[2021-03-14] MEDS: Pramipexole Di-HCl 0.5 MG Tablet PO (22:31)
[2021-03-14] MEDS: carBAMazepine 200 MG Tablet 400 MG PO (22:32)
[2021-03-14] MEDS: Zolpidem Tartrate 5 MG Tablet PO (22:34)
[2021-03-14] MEDS: Tacrolimus Anhydrous 1 MG Capsule 2 MG PO (22:37)
[2021-03-15] VITALS (8 sets, daily range): BP systolic 110–134; BP diastolic 62–77; PULSE 74–95; RESP 18–20; TEMP 36.8–37.3; O2SAT 91–98
[2021-03-15] MEDS: Ondansetron 4 MG/2 ML Vial IV ×2 (03:18→08:55)
[2021-03-15] MEDS: 0.9% Saline Lock 10 ML Syringe IV (03:21)
[2021-03-15 06:11] LABS: Bedside Glucose 156 mg/dL (70-110)
[2021-03-15 06:30] LABS: Bedside Glucose 133 mg/dL (70-110)
[2021-03-15] MEDS: Rizatriptan Benzoate 10 MG Tablet PO (06:43)
[2021-03-15 07:30] LABS: Absolute Lymphocyte Count 0.82 X10^3/uL (0.83-4.51); Absolute Neutrophil Count 2.9 X10^3/uL (2.0-7.7); Hematocrit 36.7 % (37-47); Hemoglobin 12.5 g/dL (12.0-15.0); Lymphocyte # 0.82 X10^3/ul (0.83-4.51); Lymphocyte % 20.8 % (19-41); Mean Corp Hgb Conc 34.1 g/dL (32-36); Mean Corpuscular Hgb 27.2 pg (27.0-32.0); Mean Corpuscular Volume 79.8 fL (81-99); Mean Platelet Vol. 9.7 fl (6.2-12.0); Monocyte# 0.22 X10^3/uL; Monocyte% 5.6 % (0-10); NRBC Flagged by Analyzer 0 % (0-5); Neutrophil # 2.88 X10^3/uL (2.7-7.7); Neutrophil % 73.1 % (47-70); POSITIVE COUNT YES; Platelet Count 65 K/mm3 (150-450); RBC Distribution Width SD 40.5 fl (35.1-43.9); White Blood Count 3.9 K/mm3 (4.4-11.0)
[2021-03-15 07:58] LABS: Anion Gap 9 (5-15); BUN 7 mg/dL (7-18); BUN/Creat Ratio 11.8 RATIO (10-20); Calcium,Total 7.8 mg/dL (8.5-10.1); Chloride 106 mmol/L (98-107); EST Glomerular Filtration Rate 112 mL/min (>60); Est Glom Filt Rate - Afr Amer 135 mL/min (>60); Estimated Creatinine Clearance 93.64 ml/min; Glucose 138 mg/dL (74-106); Potassium 3.5 mmol/L (3.5-5.1); Sodium Level 136 mmol/L (136-145)
[2021-03-15] MEDS: guaiFENesin 1,200 MG Tablet 1200 MG PO (09:33)
[2021-03-15] MEDS: Pantoprazole Sodium 40 MG Tablet PO (09:33)
[2021-03-15] MEDS: Mycophenolate Mofetil 250 MG Capsule PO (09:33)
[2021-03-15] MEDS: Oxybutynin 5 MG Tablet PO (09:33)
[2021-03-15] MEDS: Citalopram 40 MG TABLET PO (09:34)
[2021-03-15] MEDS: Tacrolimus Anhydrous 1 MG Capsule 2 MG PO (10:16)
[2021-03-15 11:31] LABS: Bedside Glucose 146 mg/dL (70-110)
[2021-03-15] MEDS: hydrOXYzine PAM 25 MG Capsule PO (13:24)
--- NOTE | 2021-03-15 13:27 | PCM.DC ---
Discharge Instructions Diet Discharge Diet: No restrictions Activity Discharge Activity: Return to Normal Activity Follow Up Care Test Results: Test results from this visit will be discussed in further detail at your follow-up appointment, if applicable. Discharge Plan Admission Admit Date/Time: 03/12/21 16:04 Attending Provider: Markus Mejia Primary Care Provider: Geeta Odell Instructions Additional Instructions / Restrictions: Quarantine for 10 days total from the day of GI symptom onset Discharge Orders/Prescriptions Prescriptions: Continued tacrolimus [Prograf] 5 mg capsule 2 mg PO BID RF: 0 mycophenolate mofetil [CellCept] 250 mg capsule 250 mg PO BID RF: 0 zolpidem [Ambien] 10 mg tablet 10 mg PO QHS RF: 0 ondansetron 4 mg tablet,disintegrating See Rx Instructions PO Q8H PRN (Reason: Nausea) Qty: 180 RF: 2 methocarbamol 750 mg tablet 750 mg PO TID PRN (Reason: Muscle pain/spasm) Qty: 90 RF: 3 citalopram 40 MG tablet 40 mg PO DAILY RF: 0 albuterol sulfate 1 INHALER inhaler 1 - 2 puff inhalation Q4H PRN PRN (Reason: breathing) RF: 0 entecavir 0.5 MG tablet 0.5 mg PO DAILY RF: 0 calcium carbonate-vitamin D3 1 EACH tablet 1 tab PO BID RF: 0 aspirin 325 MG tablet 81 mg PO DAILY@0800 RF: 0 metformin 500 MG tablet 500 mg PO DAILY RF: 0 oxybutynin chloride 5 MG tablet extended release 24hr 5 mg PO DAILY RF: 0 Breo Ellipta 100-25 mcg/dose blister with device 2 ea INHALATION DAILY PRN (Reason: Shortness Of Breath) RF: 0 omeprazole 40 mg Capsule,Delayed Release(Dr/Ec) 40 mg PO DAILY RF: 0 hydroxyzine HCl 25 mg tablet 25 mg PO Q4H PRN PRN (Reason: Anxiety) RF: 0 ropinirole 1 mg tablet 1 mg PO QHS RF: 0 carbamazepine 200 mg tablet 400 mg PO QHS RF: 0 Referrals / Follow Up: Geeta Odell MD [Primary Care Provider] - Within 1 Week Disposition Disposition (needs filled in before D/C Order can be placed): Home, Self Care
--- NOTE | 2021-03-15 15:59 | PCM.DC.SUM ---
Providers Date of Admission: 03/12/21 Primary Care Physician: Dr. Geeta Odell MD Reason For Visit: ACUTE RESPIRATORY FAILURE / COVID-19 Diagnosis Discharge Diagnosis (1) COVID-19 virus infection: Status: Acute Code(s): U07.1 - COVID-19 (2) Intractable vomiting with nausea: Status: Acute Code(s): R11.2 - Nausea with vomiting, unspecified (3) Epilepsy: Status: Acute Code(s): G40.909 - Epilepsy, unspecified, not intractable, without status epilepticus Medications at Discharge Home Medications citalopram 40 mg PO DAILY 07/29/16 albuterol sulfate 1 - 2 puff INHALATION Q4H PRN PRN 02/08/18 entecavir 0.5 mg PO DAILY 12/25/18 calcium carbonate-vitamin D3 1 tab PO BID 02/04/19 aspirin 81 mg PO DAILY@0800 03/03/19 mycophenolate mofetil 250 mg capsule 250 mg PO BID 02/17/20 tacrolimus 5 mg capsule, immediate-release 2 mg PO BID 02/17/20 zolpidem 10 mg tablet 10 mg PO QHS 02/17/20 metformin 500 mg PO DAILY 09/12/20 oxybutynin chloride 5 mg PO DAILY 09/12/20 Breo Ellipta 2 ea INHALATION DAILY PRN 11/19/20 ondansetron 4 mg disintegrating tablet See Rx Instructions PO Q8H PRN #180 tab 01/23/21 methocarbamol 750 mg tablet 750 mg PO TID PRN #90 tab 02/13/21 carbamazepine 400 mg PO QHS 03/12/21 hydroxyzine HCl 25 mg PO Q4H PRN PRN 03/12/21 omeprazole 40 mg PO DAILY 03/12/21 ropinirole 1 mg PO QHS 03/12/21 Hospital Course Operations None Procedures None Summary of Care Provided Minutes Spent on Discharge: 37 Hospital Course: Per HPI: STEPHANE REYES, is a 55 F who presents with the above ongoing for 3 days. Patient has history of liver transplant for liver failure from fatty liver, on immunosuppressant, history of seizure disorder, unvaccinated who comes in with cough, and intractable nausea and vomiting. Patient stated that she was exposed about a week ago when her daughter's step [id number] got Covid. She started having symptoms about 3 days ago. Denied any fever or chills. She has no diarrhea. She rather has intractable nausea and vomiting and has not been able to take any of her antirejection medications. Patient symptoms were stable. She has saturating well on room air. Hospital Course: 1. Nausea and vomiting secondary to COVID-19 [id number] female who was been having GI symptoms about 3 days prior to admission presented with nausea and vomiting. She tested positive for Covid, she never got vaccinated secondary to her history of immunosuppression from her liver transplant. Over the last couple of days she has been slowly improving with her nausea and vomiting. Her headaches have resolved on today she had no energy and it was found that she had a phosphorus level of 1.3, this was replaced. I discussed with her the plan for possible discharge today she expressed understanding of the risk benefits of going home and would like to go home today. She thinks that she will sleep better at home and that her nausea could be better controlled at home as well. She did has Zofran as previous prescription that she should continue while home and I did encourage her to increase her diet to improve her phosphorus consumption as well. 2. Seizure disorder-she did have a seizure while here secondary to not taking her antiseizure medications for several days because of her nausea and vomiting. She was given Ativan and then transition to IV Keppra. Now that she is able to take her oral medications she states that she had been seizure-free for over a year therefore I recommend that she return to her normal dosing for her medications 3. History of liver transplant-I encouraged her to resume her antirejection medications and talk to her transplant doctor secondary to her episode of nausea and vomiting see if there is any adjustments that she would need to make. 4. Type 2 diabetes, anxiety, depression her chronic medical conditions which complicate her care. Her home medications were continued where appropriate. Discussed with her that she can restart her Metformin as she goes home as long as she remains hydrated. Physical Exam Const alert, oriented x3 and no apparent distress General Appearance: cooperative HEENT normocephalic and moist oral mucous membranes Eyes PERRL, EOMs intact bilaterally and conjunctivae normal Neck supple and no JVD Resp normal respiratory effort, no retractions, no use of accessory muscles and clear to auscultation bilaterally Auscultation: Negative for crackles, rales, rhonchi or wheezes Cardio regular rate, regular rhythm, S1 normal heart sound, S2 normal heart sound and no murmurs GI soft to palpation, non-tender and non-distended; Negative for hepatosplenomegaly Extremity no clubbing, cyanosis or edema Skin no rashes or lesions noted Neuro no focal motor deficits and no sensory deficits noted Psych affect normal Appearance: appropriate Medical Records Data Medical Nutrition Assessment Dietitian: Malnutrition Criteria Met Start: 03/12/21 17:16 Freq: Status: Active Protocol: Document 03/14/21 09:41 RMA (Rec: 03/14/21 09:41 RMA [id number]) Nutrition Malnutrition Evidence of Malnutrition Exists Yes Malnutrition (severe): Acute Illness/Injury Evidenced By Suboptimal Energy Intake ( Severe),Weight Loss (Severe) Clinical Problem Acute Disease or Injury Related Malnutrition Etiology Moderate to severe protein/ calorie malnutrition in the context of acute illness ( COVID 19) related to altered GI function, ongoing poor appetite and inadequate oral intake Signs/Symptoms as evidenced by <50% of normal po intake x 4 days, ongoing inadequate oral intake meeting less than 50% estimated nutrition needs, nausea/ vomiting and 2.2% wt loss in < 1 wk. Status Active Problem Recommendation Dietitian Recommendations/Changes Will continue liberal regular diet for now d/t signs and symptoms of malnutrition and inadequate oral intake; restrict carbohydrates as intake imrpove and becomes adequate at meals. 120ml glucerna shake TID w/ meals---pt will take as tolerated; will adjust as needed. Weight / BMI Weight Weight: 164 lb 10.965 oz Body Mass Index (BMI) 27.6 ABG / Lab / Microbiology Data Result Diagrams: 03/15/21 06:45 03/15/21 06:45 Laboratory: Laboratory Results - last 24 hr 03/14/21 18:08: POC Glucose 150 H 03/14/21 22:29: POC Glucose 133 H 03/15/21 06:02: POC Glucose 156 H 03/15/21 06:45: WBC 3.9 L, RBC 4.60, Hgb 12.5, Hct 36.7 L, MCV 79.8 L, MCH 27.2, MCHC 34.1, RDW Std Deviation 40.5, RDW Coeff of Nicole 14.0, Plt Count 65 L, MPV 9.7, Immature Gran % (Auto) 0.500, Neut % (Auto) 73.1 H, Lymph % (Auto) 20.8, [place] % (Auto) 5.6, Eos % (Auto) 0.0, Baso % (Auto) 0.0, Absolute Neuts (auto) 2.9, Absolute Lymphs (auto) 0.82 L, Nucleated RBC % 0 03/15/21 06:45: Sodium 136, Potassium 3.5, Chloride 106, Carbon Dioxide 21.0, Anion Gap 9, BUN 7, Creatinine 0.60, Estim Creat Clear Calc 93.64, Est GFR (MDRD) Af Amer 135, Est GFR (MDRD) Non-Af 112, BUN/Creatinine Ratio 11.8, Glucose 138 H, Calcium 7.8 L 03/15/21 11:23: POC Glucose 146 H Microbiology: Microbiology 03/12/21 18:48 Blood Culture (Wb) - Anticubital Right Blood Culture - Preliminary No growth in 48 hours. 03/12/21 13:58 Blood Culture (Wb) - Right Hand Blood Culture - Preliminary No growth in 48 hours. 03/12/21 13:00 Nasal Secretion SARS-CoV-2 Antigen (Rapid) - Final SARS-CoV-2 (COVID 19) D/C Instructions Discharge Diet: No restrictions Meaningful Use Info Meaningful Use Diagnoses (Choose all that apply): None applicable Discharge Plan Admission Admit Date/Time: 03/12/21 16:04 Attending Provider: Markus Mejia Primary Care Provider: Geeta Odell Instructions Additional Instructions / Restrictions: Quarantine for 10 days total from the day of GI symptom onset Discharge Orders/Prescriptions Prescriptions: Continued tacrolimus [Prograf] 5 mg capsule 2 mg PO BID RF: 0 mycophenolate mofetil [CellCept] 250 mg capsule 250 mg PO BID RF: 0 zolpidem [Ambien] 10 mg tablet 10 mg PO QHS RF: 0 ondansetron 4 mg tablet,disintegrating See Rx Instructions PO Q8H PRN (Reason: Nausea) Qty: 180 RF: 2 methocarbamol 750 mg tablet 750 mg PO TID PRN (Reason: Muscle pain/spasm) Qty: 90 RF: 3 citalopram 40 MG tablet 40 mg PO DAILY RF: 0 albuterol sulfate 1 INHALER inhaler 1 - 2 puff inhalation Q4H PRN PRN (Reason: breathing) RF: 0 entecavir 0.5 MG tablet 0.5 mg PO DAILY RF: 0 calcium carbonate-vitamin D3 1 EACH tablet 1 tab PO BID RF: 0 aspirin 325 MG tablet 81 mg PO DAILY@0800 RF: 0 metformin 500 MG tablet 500 mg PO DAILY RF: 0 oxybutynin chloride 5 MG tablet extended release 24hr 5 mg PO DAILY RF: 0 Breo Ellipta 100-25 mcg/dose blister with device 2 ea INHALATION DAILY PRN (Reason: Shortness Of Breath) RF: 0 omeprazole 40 mg Capsule,Delayed Release(Dr/Ec) 40 mg PO DAILY RF: 0 hydroxyzine HCl 25 mg tablet 25 mg PO Q4H PRN PRN (Reason: Anxiety) RF: 0 ropinirole 1 mg tablet 1 mg PO QHS RF: 0 carbamazepine 200 mg tablet 400 mg PO QHS RF: 0 Referrals / Follow Up: Geeta Odell MD [Primary Care Provider] - Within 1 Week Disposition Disposition (needs filled in before D/C Order can be placed): Home, Self Care Charges/Coding Visit Charges Inpatient E&M: 09812 Disch Hosp
[2021-03-16 09:49] LABS: Tacrolimus (FK506) 2.2 ng/mL (2.0-20.0)
--- NOTE | 2021-03-16 16:48 | CASEMGMT ---
LOUISE CM Discharge Follow-Up Phone Call. Lace: 15 Strata: 4 Discharge Date: 03/15/21 Adm Dx: Acute resp failure/COVID-19 Attempted discharge f/u phone call. No answer. Message came on identifying pt, but message stated mailbox is full and unable to leave message. Misty KENNEY RN CM
== END 2021-03-15 16:08 | disposition home or self-care (01) | DRG 178 ==
LOC: ED 16:15 → MS3 16:28
PROVIDERS: Admitting Provider Internal Medicine; Emergency Provider Emergency Medicine; PCP Family Medicine; Visit Provider Family Medicine
DX: U07.1 COVID-19 (principal); E87.2 Acidosis; Z94.4 Liver transplant status; G40.909 Epilepsy, unspecified, not intractable, without status epilepticus; E11.9 Type 2 diabetes mellitus without complications; E86.0 Dehydration; F32.9 Major depressive disorder, single episode, unspecified; F41.9 Anxiety disorder, unspecified; R11.2 Nausea with vomiting, unspecified; Z86.73 Personal history of transient ischemic attack (TIA), and cerebral infarction without residual deficits; Z88.8 Allergy status to other drugs, medicaments and biological substances; Z68.27 Body mass index [BMI] 27.0-27.9, adult; Z86.718 Personal history of other venous thrombosis and embolism; Z28.3 Underimmunization status
CPT/HCPCS: 36415; 71045; 80048; 80053; 80197; 81001; 82962; 83605; 83690; 83735; 84100; 85025; 87040; 87426; 94640; 94762; 97802; 97803; 99251; 99285; J7030; J7050; A4216; G0463; J2405

== ENCOUNTER 2021-03-22 11:18 | Outpatient (RCR) | payer MEDICARE, OTHER, SELFPAY ==
[2021-03-22 13:07] LABS: Color, Urine Yellow (Yellow); Glucose, Dipstick Normal (Normal); Ketone-Dipstick Negative (Negative); Leukocyte Esterase-Dipstick 500 /ul (Negative); Nitrite-Dipstick Negative (Negative); Occult Blood-Urine 250 /ul (Negative); Protein-Dipstick 30 mg/dl (Negative); Specific Gravity, Urine 1.015 (1.002-1.030); Urine Bilirubin Dipstick Negative (Negative); Urine Clarity Cloudy (Clear); Urine Urobilinogen Normal (Normal)
[2021-03-22 13:09] LABS: Absolute Lymphocyte Count 0.94 X10^3/uL (0.83-4.51); Basophil# 0.02 X10^3/uL; Basophil% 0.3 % (0-1); Eosinophil# 0.03 X10^3/uL; Eosinophils% 0.5 % (0-5); Hematocrit 38.8 % (37-47); Hemoglobin 13.1 g/dL (12.0-15.0); Lymphocyte # 0.94 X10^3/ul (0.83-4.51); Lymphocyte % 14.5 % (19-41); Mean Corp Hgb Conc 33.8 g/dL (32-36); Mean Corpuscular Volume 79.8 fL (81-99); Monocyte# 0.46 X10^3/uL; Monocyte% 7.1 % (0-10); NRBC Flagged by Analyzer 0 % (0-5); Platelet Count 136 K/mm3 (150-450); RBC Distribution Width CV 13.4 % (11.6-14.6); Red Blood Count 4.86 M/mm3 (4.2-5.4); White Blood Count 6.5 K/mm3 (4.4-11.0)
[2021-03-22 13:21] LABS: ALB/GLOB Ratio 0.7 RATIO (0.9-2.4); AST(SGOT) 21 U/L (15-37); Alanine Aminotransfer ALT/SGPT 27 U/L (13-56); Albumin, Serum 3.1 g/dL (3.2-5.0); Alkaline Phosphatase 142 U/L (45-117); Anion Gap 7 (5-15); BUN 11 mg/dL (7-18); BUN/Creat Ratio 16.9 RATIO (10-20); Bilirubin, Direct 0.19 mg/dL (0.00-0.30); Chloride 105 mmol/L (98-107); Creatinine, Serum 0.65 mg/dL (0.55-1.02); EST Glomerular Filtration Rate 101 mL/min (>60); Est Glom Filt Rate - Afr Amer 122 mL/min (>60); Globulin 4.3 g/dL (2.2-4.2); Glucose 125 mg/dL (74-106); Magnesium 1.6 mg/dL (1.6-2.6); Phosphorus 3.2 mg/dL (2.5-4.9); Potassium 3.7 mmol/L (3.5-5.1); Protein, Total 7.4 g/dL (6.4-8.2); Sodium Level 141 mmol/L (136-145)
[2021-03-25 08:37] LABS: Tacrolimus (FK506) 2.8 ng/mL (2.0-20.0)
== END 2021-04-15 23:59 ==
LOC: LABSPEC 11:18
PROVIDERS: PCP Family Medicine; Referring Provider Family Medicine
DX: U07.1 COVID-19 (principal); E11.9 Type 2 diabetes mellitus without complications; G40.909 Epilepsy, unspecified, not intractable, without status epilepticus; R39.9 Unspecified symptoms and signs involving the genitourinary system
CPT/HCPCS: 80053; 80197; 81002; 82248; 83735; 84100; 85025; 87077; 87086; 87088; 87186

== ENCOUNTER → 2021-05-09 10:31 | Outpatient (CLI) | payer MEDICARE, OTHER, SELFPAY ==
[2021-05-09 12:06] LABS: Hematocrit 39.2 % (37-47); Hemoglobin 13.3 g/dL (12.0-15.0); Mean Corp Hgb Conc 33.9 g/dL (32-36); Mean Corpuscular Hgb 27.1 pg (27.0-32.0); Mean Platelet Vol. 10.2 fl (6.2-12.0); Platelet Count 131 K/mm3 (150-450); RBC Distribution Width CV 13.2 % (11.6-14.6); RBC Distribution Width SD 37.7 fl (35.1-43.9); White Blood Count 5.9 K/mm3 (4.4-11.0)
[2021-05-09 12:28] LABS: ALB/GLOB Ratio 0.9 RATIO (0.9-2.4); AST(SGOT) 15 U/L (15-37); Alanine Aminotransfer ALT/SGPT 20 U/L (13-56); Albumin, Serum 3.6 g/dL (3.2-5.0); Alkaline Phosphatase 112 U/L (45-117); Anion Gap 10 (5-15); BUN 13 mg/dL (7-18); BUN/Creat Ratio 17.7 RATIO (10-20); Calcium,Total 9.1 mg/dL (8.5-10.1); Chloride 104 mmol/L (98-107); Creatinine, Serum 0.74 mg/dL (0.55-1.02); EST Glomerular Filtration Rate 88 mL/min (>60); Est Glom Filt Rate - Afr Amer 106 mL/min (>60); Globulin 4.1 g/dL (2.2-4.2); Glucose 159 mg/dL (74-106); Potassium 3.9 mmol/L (3.5-5.1); Protein, Total 7.7 g/dL (6.4-8.2); Sodium Level 139 mmol/L (136-145)
[2021-05-09 12:51] LABS: Carbamazepine (Tegretol) 13.7 ug/mL (4.0-12.0)
== END ==
PROVIDERS: PCP Family Medicine; Referring Provider Psychiatry & Neurology Neurology; Visit Provider Psychiatry & Neurology Neurology
DX: G40.909 Epilepsy, unspecified, not intractable, without status epilepticus (principal); M54.42 Lumbago with sciatica, left side; G89.29 Other chronic pain; M54.41 Lumbago with sciatica, right side
CPT/HCPCS: 36415; 80053; 80156; 82140; 85027

== ENCOUNTER 2021-06-19 12:35 | Outpatient (CLI) | payer MEDICARE, OTHER, SELFPAY | END 2021-06-19 23:59 | disposition short-term general hospital (02) | PROVIDERS: PCP Family Medicine; Referring Provider Psychiatry & Neurology Neurology; Visit Provider Psychiatry & Neurology Neurology | DX: G40.909 Epilepsy, unspecified, not intractable, without status epilepticus (principal) | CPT/HCPCS: 36415; 80156 ==

== ENCOUNTER 2021-06-21 09:22 | Day surgery (SDC) | payer MEDICARE, OTHER, SELFPAY ==
[2021-06-21] VITALS (7 sets, daily range): BP systolic 110–128; BP diastolic 77–89; PULSE 82–97; RESP 16; TEMP 36.2–36.8; O2SAT 93–99; BMI 28.3
[2021-06-21 10:06] LABS: Bedside Glucose 250 mg/dL (70-110)
--- NOTE | 2021-06-21 10:45 | COLBX_PTH ---
PATIENT: STEPHANE CABALLERO LOC: EN U#:[id number] AGE/SX: 56/F ROOM: RE06/21/[address]: Dr. Raoul June DO : 1965 BED: DIS: 06/21/2021 SPEC #: [id number] RECD: 06/21/21 12:53 STATUS: HINA REQ #: [id number] RISHI: 06/21/21 10:[address]: Raoul June DEPT: SURGICAL PATHOLOGY RECD BY: Alba Henson ENTERED: 06/21/21 13:37 SP TYPE: COLON BX OTHR DR: Dr. Geeta Odell MD Tissues: Cecum, NOS Procedures: Surgery Specimen Level IV HEADER OPERATION: Colonoscopy (MAC) PRE-OP DIAGNOSIS: History of colonic polyps TISSUE SUBMITTED: Cecal polyp biopsy MICROSCOPIC DIAGNOSIS Cecal polyp, biopsy: Tubular adenoma. AM:kristy 06/22/2021 MICROSCOPIC DESCRIPTION Slides are reviewed. GROSS DESCRIPTION Received in fixative is one container labeled with the patient's name and designated biopsy of cecal polyp. The specimen consists of multiple irregular fragments of light artis soft tissue that in aggregate measure 1 x 0.3 x 0.1 cm. The specimen is totally submitted in one cassette. / AM:kristy 06/21/21 TC:5 CPT: 04098
--- NOTE | 2021-06-21 10:57 | PCM.HP.BLA ---
History and Physical Date of Admission: 06/21/21 6 F who presents to the office today for CT abd/pel performed 12/01/20 with appearance of normal transplanted liver with numerable surgical clips in clare hepatis region. Mildly enlarged spleen but stable compared to 04/20/2020 imaging. Additional history of epilepsy (follows neurology), migraine (neurology), restless leg (neurology), memory loss (neurology), esophageal varices with history of multiple banding, C.Diff, pseudoseizure, fibromyalgia, MARMOLEJO. 05/16/2018 transplant surgery to address MARMOLEJO stage IV. Colonoscopy also done around this time with finding of nine polyps. Polyps were reported to her as ?abnormal?. Reports 03/12/21 COVID with memory loss and altered metabolism following infection. Will be getting EEG soon. ROS Const Constitutional: Positive for fatigue, headache(s) and weakness ENT ENT: Positive for nasal congestion, headache(s), difficulty swallowing, hoarseness and sore throat Cardio Cardiology: Positive for shortness of breath Gastro GI: Positive for bloating, cramping, diarrhea, heartburn, difficulty swallowing, nausea/dyspepsia and vomiting Musc Musculoskeletal: Positive for joint pain, back pain, muscle cramps, muscle weakness, numbness, stiffness, tingling, Arthritis, restless legs and leg pain at night Skin Skin: Positive for dry skin Neuro Neurology: Positive for weakness, headache(s), numbness, tingling and restless legs Psych Psychiatric: Positive for anxiety, Positive for depression, Positive for hyperactivity and Positive for obsessions/compulsions Endo Endocrine: Positive for fatigue, heat intolerance and increased thirst/drinking Ron/Lymp Hematologic/Lymphatic: Positive for easy bruising Exam Const General: cooperative and comfortable Nutritional Appearance: average body habitus and well nourished [facility] Head: normal to inspection Ears: hearing grossly normal bilaterally Nose: external nose normal Face and sinus: normal facial exam Mouth: oral mucosae normal Throat: posterior oropharynx normal Eyes General: appearance normal, both eyes and all related structures Neck Neck: normal visual inspection Chest Chest palpation & inspection: normal inspection of the chest and normal palpation of entire chest wall Resp Effort & Inspection: normal respiratory effort Auscultation: Bilateral: Clear to Auscultation Cardio Palpation: normal PMI Rate: regular rate Rhythm: regular rhythm GI Inspection: normal to inspection Auscultation: normal bowel sounds Percussion: normal to percussion Palpation: no hepatosplenomegaly Skin General: no rashes or lesions noted Neuro General: patient alert Extrem General: normal to inspection Psych Affect: normal affect Quality Reporting Tobacco Screening ([facility] 138) Smoking Status: Never smoker Assessment and Plan Assessment and Plan (1) Personal history of colonic polyps: Status: Acute Plan - Dr. Silveira Friend, DO: She will need to undergo colonoscopy. She had a Cologuard that was positive. She has a history of multiple adenomatous polyps. On her last colonoscopy over 4 years ago she had 9 polyps removed. She is very nervous because she is on immunosuppression. We will perform an upper endoscopy. She will get MiraLAX prep. She was getting her antirejection medicines levels checked. Her antirejection medicine should not affect the prep or the procedure. She was explained alternatives, risk, benefits including not withstanding bleeding, infection, sepsis, perforation, need for urgent . She will have an ASA of 3. I have re-examined the patient. There are no clinical changes since date of exam.
--- NOTE | 2021-06-21 11:33 | OP.COLON_ITS ---
Patient Name: Jazmin Pratt Procedure Date: 06/21/2021 10:52 AM Date of : 1965 Age: 56 Procedure: Colonoscopy Indications: High risk colon cancer surveillance: Personal history of colonic polyps Providers: Raoul June DO Medicines: See the Anesthesia note for documentation of the administered medications Patient Profile: Last Colonoscopy: 3 years ago. Complications: No immediate complications. Procedure: Pre-Anesthesia Assessment: - Prior to the procedure, a History and Physical was performed, and patient medications and allergies were reviewed. The risks and benefits of the procedure and the sedation options and risks were discussed with the patient. All questions were answered and informed consent was obtained. Patient identification and proposed procedure were verified by the physician in the pre-procedure area. Mental Status Examination: alert and oriented. Airway Examination: normal oropharyngeal airway and neck mobility. Respiratory Examination: clear to auscultation. CV Examination: normal. Prophylactic Antibiotics: The patient does not require prophylactic antibiotics. Prior Anticoagulants: The patient has taken no previous anticoagulant or antiplatelet agents. ASA Grade Assessment: II - A patient with mild systemic disease. After reviewing the risks and benefits, the patient was deemed in satisfactory condition to undergo the procedure. The anesthesia plan was to use moderate sedation / analgesia (conscious sedation). Immediately prior to administration of medications, the patient was re-assessed for adequacy to receive sedatives. The heart rate, respiratory rate, oxygen saturations, blood pressure, adequacy of pulmonary ventilation, and response to care were monitored throughout the procedure. The physical status of the patient was re-assessed after the procedure. After I obtained informed consent, the scope was passed under direct vision. Throughout the procedure, the patient's blood pressure, pulse, and oxygen saturations were monitored continuously. The colonoscope was introduced through the anus and advanced to the cecum, identified by appendiceal orifice and ileocecal valve. The colonoscopy was performed without difficulty. The patient tolerated the procedure well. The quality of the bowel preparation was good. Moderate Sedation: Moderate (conscious) sedation was administered by the endoscopy nurse and supervised by the endoscopist. The following parameters were monitored: oxygen saturation, heart rate, blood pressure, and response to care. Total physician intraservice time was 15 minutes. Scope In: 11:04:10 AM Scope Withdrawal Time 0 hours 15 minutes 21 seconds Scope Out: 11:24:28 AM Total Procedure Duration Time 0 hours 20 minutes 18 seconds Findings: The perianal and digital rectal examinations were normal. A few small-mouthed diverticula were found in the recto-sigmoid colon and sigmoid colon. A 5 mm polyp was found in the cecum. The polyp was sessile. The polyp was removed with a hot snare. Resection and retrieval were complete. Verification of patient identification for the specimen was done. Estimated blood loss was minimal. The exam was otherwise without abnormality on direct and retroflexion views. Impression: - Diverticulosis in the recto-sigmoid colon and in the sigmoid colon. - One 5 mm polyp in the cecum, removed with a hot snare. Resected and retrieved. - The examination was otherwise normal on direct and retroflexion views. Recommendation: - Discharge patient to home. - Resume previous diet. - Continue present medications. - Await pathology results. - Repeat colonoscopy in 3 years for surveillance. - Return to GI office in 2 weeks. Procedure Code(s): --- Professional --- 14782, Colonoscopy, flexible; with removal of tumor(s), polyp(s), or other lesion(s) by snare technique 90341, 59, Moderate sedation services provided by the same physician or other qualified health insurance healthcare consultant performing the diagnostic or therapeutic service that the sedation supports, requiring the presence of an independent trained observer to assist in the monitoring of the patient's level of consciousness and physiological status; initial 15 minutes of intraservice time, patient age 5 years or older CPT copyright 2017 [employer]. All rights reserved. The codes documented in this report are preliminary and upon airline flight attendant review may be revised to meet current compliance requirements. Raoul June DO 06/21/2021 11:33:08 AM This report has been signed electronically. Number of Addenda: 1 Note Initiated On: 06/21/2021 10:52 AM Addendum Number: 1 Addendum Date: 02/21/2022 6:09:24 AM MAC was used instead of moderate sedation for the patient. Raoul June DO 02/21/2022 6:09:31 AM This report has been signed electronically.
--- NOTE | 2021-06-21 11:34 | OP.CCLET_ITS ---
02/21/2022 Geeta Odell [place] [id number] [address] Re : Colonoscopy procedure for Jazmin Pratt Dear Dr. Odell This procedure was performed on June. My impressions and recommendations are as follows: Impressions : - Diverticulosis in the recto-sigmoid colon and in the sigmoid colon. - One 5 mm polyp in the cecum, removed with a hot snare. Resected and retrieved. - The examination was otherwise normal on direct and retroflexion views. Recommendations : - Discharge patient to home. - Resume previous diet. - Continue present medications. - Await pathology results. - Repeat colonoscopy in 3 years for surveillance. - Return to GI office in 2 weeks. My findings are described in the full procedure note, which is enclosed. If I can be of further assistance, please feel free to contact me at . Sincerely, Raoul June, 06/21/2021 11:33:08 AM This report has been signed electronically.
== END 2021-06-21 23:59 | disposition home or self-care (01) ==
LOC: EN 09:22 → AC 09:23
PROVIDERS: PCP Family Medicine; Referring Provider Internal Medicine Gastroenterology; Visit Provider Internal Medicine Gastroenterology
PROC: 0DJD8ZZ Inspection of Lower Intestinal Tract, Via Natural or Artificial Opening Endoscopic (ICD-10-PCS; CPT 45378; principal; 2021-06-21 10:40)
DX: Z12.11 Encounter for screening for malignant neoplasm of colon (principal); Z94.4 Liver transplant status; G40.909 Epilepsy, unspecified, not intractable, without status epilepticus; E11.9 Type 2 diabetes mellitus without complications; D12.0 Benign neoplasm of cecum; K57.30 Diverticulosis of large intestine without perforation or abscess without bleeding; K21.9 Gastro-esophageal reflux disease without esophagitis; K75.81 Nonalcoholic steatohepatitis (NASH); M79.7 Fibromyalgia; M19.90 Unspecified osteoarthritis, unspecified site; G25.81 Restless legs syndrome; Z79.84 Long term (current) use of oral hypoglycemic drugs; Z79.899 Other long term (current) drug therapy; Z86.010 Personal history of colon polyps; Z86.16 Personal history of COVID-19; Z20.822 Contact with and (suspected) exposure to COVID-19; Z86.73 Personal history of transient ischemic attack (TIA), and cerebral infarction without residual deficits
CPT/HCPCS: 45385; 82962; 87426; 88305; C9803; J7120; J2405

== ENCOUNTER 2021-07-04 11:34 | Outpatient (CLI) | payer MEDICARE, OTHER, SELFPAY ==
[2021-07-04 15:09] LABS: Hematocrit 39.8 % (37-47); Hemoglobin 12.9 g/dL (12.0-15.0); Mean Corp Hgb Conc 32.4 g/dL (32-36); Mean Corpuscular Hgb 26.7 pg (27.0-32.0); Mean Corpuscular Volume 82.2 fL (81-99); Mean Platelet Vol. 10.2 fl (6.2-12.0); Platelet Count 142 K/mm3 (150-450); RBC Distribution Width CV 13.4 % (11.6-14.6); RBC Distribution Width SD 39.8 fl (35.1-43.9); Red Blood Count 4.84 M/mm3 (4.2-5.4); White Blood Count 6.2 K/mm3 (4.4-11.0)
[2021-07-04 15:40] LABS: AST(SGOT) 9 U/L (15-37); Alanine Aminotransfer ALT/SGPT 19 U/L (13-56); Albumin, Serum 3.6 g/dL (3.2-5.0); Alkaline Phosphatase 112 U/L (45-117); Anion Gap 8 (5-15); BUN 11 mg/dL (7-18); BUN/Creat Ratio 15.9 RATIO (10-20); Calcium,Total 9.1 mg/dL (8.5-10.1); Chloride 101 mmol/L (98-107); Creatinine, Serum 0.69 mg/dL (0.55-1.02); EST Glomerular Filtration Rate 94 mL/min (>60); Est Glom Filt Rate - Afr Amer 114 mL/min (>60); Globulin 3.6 g/dL (2.2-4.2); Glucose 215 mg/dL (74-106); Potassium 4.2 mmol/L (3.5-5.1); Protein, Total 7.2 g/dL (6.4-8.2); Sodium Level 136 mmol/L (136-145)
[2021-07-04 15:49] LABS: Thyroid Stim Hormone (TSH) 1.85 uIU/mL (0.358-3.74)
[2021-07-04 15:55] LABS: Carbamazepine (Tegretol) 4.3 ug/mL (4.0-12.0)
[2021-07-04 16:04] LABS: Hemoglobin A1c 7.3 % (3.8-5.6)
== END 2021-07-04 23:59 | disposition short-term general hospital (02) ==
LOC: MTLAB 11:36
PROVIDERS: Nurse Practitioner Family; PCP Family Medicine; Referring Provider Family Medicine; Visit Provider Family Medicine
DX: E11.9 Type 2 diabetes mellitus without complications (principal); R53.83 Other fatigue
CPT/HCPCS: 36415; 80053; 80156; 82140; 83036; 84443; 85027

== ENCOUNTER → 2021-10-08 | Outpatient (CLI) | payer MEDICARE, OTHER, SELFPAY ==
[2021-10-08 15:42] LABS: Absolute Lymphocyte Count 1.83 X10^3/uL (0.83-4.51); Absolute Neutrophil Count 3.7 X10^3/uL (2.0-7.7); Basophil# 0.02 X10^3/uL; Basophil% 0.3 % (0-1); Eosinophils% 1.6 % (0-5); Hematocrit 38.7 % (37-47); Lymphocyte # 1.83 X10^3/ul (0.83-4.51); Mean Corp Hgb Conc 33.6 g/dL (32-36); Mean Corpuscular Hgb 26.4 pg (27.0-32.0); Mean Corpuscular Volume 78.7 fL (81-99); Mean Platelet Vol. 9.5 fl (6.2-12.0); Monocyte# 0.44 X10^3/uL; Monocyte% 7.2 % (0-10); NRBC Flagged by Analyzer 0 % (0-5); Neutrophil # 3.69 X10^3/uL (2.7-7.7); Neutrophil % 60.4 % (47-70); Platelet Count 110 K/mm3 (150-450); RBC Distribution Width CV 14.1 % (11.6-14.6); RBC Distribution Width SD 39.3 fl (35.1-43.9); Red Blood Count 4.92 M/mm3 (4.2-5.4); White Blood Count 6.1 K/mm3 (4.4-11.0)
[2021-10-08 16:09] LABS: AST(SGOT) 22 U/L (15-37); Alanine Aminotransfer ALT/SGPT 24 U/L (13-56); Albumin, Serum 3.5 g/dL (3.2-5.0); Alkaline Phosphatase 125 U/L (45-117); Anion Gap 7 (5-15); BUN 14 mg/dL (7-18); BUN/Creat Ratio 19.1 RATIO (10-20); Bilirubin, Direct 0.15 mg/dL (0.00-0.30); Calcium,Total 8.5 mg/dL (8.5-10.1); Chloride 103 mmol/L (98-107); Creatinine, Serum 0.73 mg/dL (0.55-1.02); EST Glomerular Filtration Rate 88 mL/min (>60); Est Glom Filt Rate - Afr Amer 106 mL/min (>60); Globulin 3.6 g/dL (2.2-4.2); Glucose 266 mg/dL (74-106); Potassium 3.8 mmol/L (3.5-5.1); Protein, Total 7.1 g/dL (6.4-8.2); Sodium Level 137 mmol/L (136-145)
[2021-10-09 09:00] LABS: Phosphorus 3.2 mg/dL (2.5-4.9)
[2021-10-13 09:41] LABS: Tacrolimus (FK506) 4.2 ng/mL (2.0-20.0)
== END | disposition home or self-care (01) ==
PROVIDERS: PCP Family Medicine
DX: Z79.899 Other long term (current) drug therapy (principal); Z94.4 Liver transplant status; Z51.81 Encounter for therapeutic drug level monitoring
CPT/HCPCS: 36415; 80053; 80197; 82248; 84100; 85025

== ENCOUNTER → 2021-10-12 | Outpatient (CLI) | payer MEDICARE, OTHER, SELFPAY ==
--- NOTE | 2021-10-12 14:23 | TELEMED_ITS ---
[facility] has confirmed receipt of a request for visit. This document confirms receipt of the order initiating the consult. To find the results of the consultation, please view the patient's reports for the scanned Telemed Consult.
== END | disposition home or self-care (01) ==
LOC: PSN 12:09
PROVIDERS: PCP Family Medicine; Referring Provider Psychiatry & Neurology Neurology; Visit Provider Psychiatry & Neurology Neurology
DX: G40.909 Epilepsy, unspecified, not intractable, without status epilepticus (principal)
CPT/HCPCS: 95819

== ENCOUNTER → 2021-11-14 | Outpatient (CLI) | payer MEDICARE, OTHER, SELFPAY ==
--- NOTE | 2021-11-14 15:09 | BI_ITS ---
MAMMOGRAPHY - BILATERAL SCREENING REASON FOR EXAM: Female, 56 years old. Routine annual screening examination. PERTINENT HISTORY: Aunt with breast cancer. History of prior bilateral breast reduction surgery. TECHNIQUE: Digital bilateral breast alice (3D mammographic acquisition) in the CC and MLO projections. 2-D mediolateral oblique (MLO) and craniocaudad (CC) views of both breasts were obtained. CAD: Full Field Digital Mammography with Computer Added Detection was performed. COMPARISON: Comparison is made with prior outside examination dated 01/17/2020 and 09/19/2017. FINDINGS: Breast Composition: There are scattered areas of fibroglandular density. There are no dominant masses or suspicious calcifications. No other significant abnormalities are identified. There has been no significant change since the prior study. BI/SCRN MAMM (CAD)W/ALICE BILAT IMPRESSION: Stable bilateral screening mammogram. Yearly follow-up mammogram recommended. (A) ASSESSMENT CATEGORY: BIRADS Category 1: Negative. A letter regarding these results will be sent to the patient by the facility within 30 days. Approximately 10% of breast cancers are not detected by mammography. A normal mammogram should not delay biopsy of a clinically suspicious abnormality. [id number] Electronically Signed: Terrance Kim MD at 15:52 EDT ,
== END | disposition home or self-care (01) ==
LOC: OPBI 15:08
PROVIDERS: PCP Family Medicine; Visit Provider Family Medicine
DX: Z12.31 Encounter for screening mammogram for malignant neoplasm of breast (principal)
CPT/HCPCS: 77063; 77067

== ENCOUNTER 2021-11-21 02:59 | Emergency (ER) | payer MEDICARE, OTHER, SELFPAY ==
[2021-11-21 03:00] VITALS: BP 120/81; BP 121/80; PULSE 74; PULSE 92; RESP 15; RESP 18; TEMP 36.1; O2SAT 98; O2SAT 99; BMI 29.6
--- NOTE | 2021-11-21 03:12 | CT_ITS ---
STUDY: CT BRAIN WITHOUT CONTRAST REASON FOR EXAM: Female, 56 years old. altered mental status RADIATION DOSAGE (If Supplied By Facility): CTDIvol = ( 44.99 ) mGy, DLP = ( 796.11 ) mGycm TECHNIQUE: Transaxial CT imaging of the brain was performed without administration of intravenous contrast material. Individualized dose optimization techniques were used for this CT. COMPARISON: CT brain 08/31/2017 FINDINGS: BRAIN: Normal easton/white matter differentiation. VENTRICLES: No hydrocephalus. EXTRA-AXIAL SPACES: No hemorrhages, fluid collections, or masses. CALVARIUM/SKULL BASE: Normal. FACE/SINUSES: Visualized portions normal. SOFT TISSUES: Normal. OTHER: None. CONCLUSION: No intracranial hemorrhage or acute territorial infarction. Electronically Signed: Antonio Allen MD at 4:18 EDT , CT/Brain/Head without Contrast IMPRESSION: undefined
--- NOTE | 2021-11-21 03:12 | EKG12_ITS ---
Test Reason : DYSRHYTHMIA Blood Pressure : / mmHG Vent. Rate : 096 BPM Atrial Rate : 096 BPM P-R Int : 160 ms QRS Dur : 080 ms QT Int : 332 ms P-R-T Axes : 042 -17 032 degrees QTc Int : 419 ms Normal sinus rhythm Inferior infarct , age undetermined Anterior infarct , age undetermined Abnormal ECG Confirmed by MOE BROOKS, SHLOMO ([id number]), restaurant expeditor TADEO NEWTON ([id number]) on 11/26/2021 7:31:38 AM Referred By: NASIM Confirmed By:SHLOMO ROSA MD
--- NOTE | 2021-11-21 03:24 | EDS_ITS ---
HPI History of Present Illness Chief Complaint: Alt LOC Narrative Narrative: Patient is a 6-year-old female with past medical history of cirrhosis as well as pseudoseizure with anxiety and depression. She was brought in by police this evening. Reportedly the patient was out walking around in the middle the night ringing doorbells. Reported the patient told the police that she had driven there but there was no sign of any car. Upon arrival to the ER the patient can tell me it is 2021 that she is in the hospital and [place] is the president. However she reports that she was out walking because she was trying to get her dogs to bed and the next thing she knew the dogs were gone and therefore she left the house in order to look for them. Reportedly the patient does not own any dogs. The patient states she has been taking her medication as directed but based on her bizarre behavior was brought to the hospital for evaluation. [facility] Medical History Alcohol use Anxiety Arthritis Asthma Back pain Blackout Bladder disease Cancer Cirrhosis COVID CVA (cerebral vascular accident) Diabetes Dietary restriction DVT (deep venous thrombosis) DVT (deep venous thrombosis) Epilepsy Gastric reflux Hiatal hernia History of echocardiogram History of IBS History of pain when walking History of stress test History of ulceration Immunocompromised state due to drug therapy Leg cramps Migraine Migraine headache MARMOLEJO (nonalcoholic steatohepatitis) Neuropathy Non-smoker Restless legs Seizures Serum ammonia increased Shortness of breath on exertion TIA (transient ischemic attack) Wears contact lenses Wears glasses Home Medications albuterol sulfate 1 - 2 puff INHALATION Q4H PRN PRN 02/08/18 [History Last Taken 06/20/21] entecavir 0.5 mg PO DAILY 12/25/18 [History Last Taken 06/20/21] mycophenolate mofetil 250 mg capsule 250 mg PO BID 02/17/20 [History Last Taken 06/20/21] tacrolimus 5 mg capsule, immediate-release 2 mg PO BID 02/17/20 [History Last Taken 06/20/21] zolpidem 10 mg tablet 10 mg PO QHS 02/17/20 [History Last Taken 06/20/21] metformin 500 mg PO DAILY 09/12/20 [History Last Taken 06/20/21] Breo Ellipta 2 ea INHALATION DAILY PRN 11/19/20 [History Last Taken 06/20/21] hydroxyzine HCl 25 mg PO Q4H PRN PRN 03/12/21 [History Last Taken 06/20/21] omeprazole 40 mg PO DAILY 03/12/21 [History Last Taken 06/20/21] mirabegron 25 mg tablet,extended release 24 hr 25 mg PO DAILY tab 04/09/21 [History Last Taken 06/20/21] ondansetron 4 mg disintegrating tablet See Rx Instructions PO Q8H PRN #180 tab 07/26/21 [Rx Last Taken Unknown] vitamin B complex 1 cap PO DAILY 11/01/21 [History Last Taken Unknown] carbamazepine 100 mg chewable tablet 100 mg PO BID #60 tab 11/02/21 [Rx Last Taken Unknown] duloxetine 30 mg capsule,delayed release 30 mg PO DAILY #7 cap 11/02/21 [Rx Last Taken Unknown] duloxetine 60 mg capsule,delayed release 60 mg PO DAILY #30 cap 11/02/21 [Rx Last Taken Unknown] ropinirole 1 mg tablet 1.5 mg PO QHS #45 tab 11/02/21 [Rx Last Taken Unknown] cephalexin 500 mg PO BID 7 Days #14 cap 11/21/21 [Rx Last Taken Unknown] Allergy/AdvReac Type Severity Reaction Status Date / Time sulfamethoxazole Allergy Fever and Verified 11/01/21 14:43 [From Bactrim] skin rash trimethoprim [From Bactrim] Allergy Fever and Verified 11/01/21 14:43 skin rash diphenhydramine HCl AdvReac climb the Verified 11/01/21 14:43 [From Benadryl] rose lorazepam [From Ativan] AdvReac Climb the Verified 11/01/21 14:43 rose prochlorperazine edisylate AdvReac climb the Verified 11/01/21 14:43 [From Compazine] rose prochlorperazine maleate AdvReac climb out Verified 11/01/21 14:43 [From Compazine] of my body promethazine HCl AdvReac climb the Verified 11/01/21 14:43 [From Phenergan] rose topiramate [From Topamax] AdvReac Other Verified 11/01/21 14:43 tramadol AdvReac climb the Verified 11/01/21 14:43 rose Family History Mother Heart disease COPD (chronic obstructive pulmonary disease) Father Chronic alcoholism Surgical History H/O liver transplant History of lumbar spinal fusion Hx of breast reduction, elective Hx of cholecystectomy Hx of colonoscopy Hx of dilation and curettage Hx of hemorrhoidectomy Hx of hysterectomy Hx of left knee surgery Hx of repair of right rotator cuff Hx of right knee surgery Hx of tubal ligation Hx of ventral hernia repair Liver transplant recipient Social History household members: spouse Smoking Status: Never smoker alcohol intake: former substance use type: does not use ROS ROS ED Constitutional Constitutional ED: Denies chills or fever(s) Eyes Eyes: Denies change in vision ENT ENT ED: Denies sore throat Cardiovascular Cardiovascular: Denies chest pain Respiratory/Chest Respiratory/Chest: Denies cough or dyspnea Gastrointestinal Gastrointestinal: Denies abdominal pain, diarrhea, nausea or vomiting Genitourinary Genitourinary ED: Denies dysuria Musculoskeletal Musculoskeletal: Denies myalgias Integumentary Denies rash Neurologic Neurologic: Denies headache(s) Hematologic/Lymphatic Hematologic/Lymphatic: Denies easy bleeding or easy bruising EXAM Physical Exam Const Vital Signs: 11/21/21 03:00 11/21/21 05:17 Temperature 97.0 F L Temperature Source Temporal Pulse Rate 74 74 Respiratory Rate 15 15 Blood Pressure 121/80 H 134/83 H Blood Pressure Mean 93 100 Pulse Ox 98 98 Oxygen Delivery Method Room Air Room Air Positive well nourished and well developed General Appearance ED: well developed HEENT Reports moist mucous membranes HEENT Narrative: No tongue or cheek biting noted Eyes PERRL and EOMs intact bilaterally Eyes Narrative: There is faint scleral icterus present Neck supple Neck Narrative: No meningeal signs Chest Wall Chest Narrative: Patient does have faint ecchymotic lesion along the left lower anterior lateral rib cage rib regions 10-12 without bony deformity or crepitance Resp normal respiratory effort and clear to auscultation bilaterally Cardio regular rate and regular rhythm GI normal to inspection, nondistended, normoactive bowel sounds, non-tender, non- distended and no masses GI Narrative: No fluid wave or pulsatile mass Auscultation: normoactive bowel sounds Palpation: soft Extremity Extremity Narrative: Trace pitting edema to the bilateral lower extremities that is equal and symmetric Neuro oriented x3 and CN's II-XII intact bilaterally Neuro Narrative: Patient is slightly obtunded but will awake to voice. When she awakes she is alert to person place and time. She does not have any obvious focal neurologic deficit. She is able to move all extremities without difficult y. GCS of 14 Motor Exam: strength 5/5 throughout Psych Psych Narrative: Patient has a depressed/flat affect Mood & Affect: depressed Skin Skin Narrative: Mild jaundice is noted General Skin Exam: jaundice MDM MDM MDM Narrative Medical decision making narrative: Patient presented to the ER with stable vitals and was is alert to person place and time. She stated that she believed her dogs had gotten out and she was looking for them. Initially it was believed that the patient did not have dogs at home but when daughter arrived she confirmed that she does own 3 dogs and they are her life. Therefore the patient wandering around looking for her animals as she believed her dogs were not at home does make sense. Still with the bizarre behavior she was exhibiting I did elect to perform a basic work-up based on her complex medical status. Patient's white count is normal H&H is stable electrolytes are normal her ammonia is normal. She has marijuana but states she takes this daily for her fibromyalgia and otherwise no drugs of abuse. Her head CT revealed no acute finding. Patient remained awake and alert for her entire ER stay. After the work-up I did asked the patient once again where she is at what her birthday is her name and the year as well as the president and patient was able to answer all questions appropriately. The urine does show a weak UTI at this time but she does not have changes of acute kidney injury or urosepsis. Therefore I do not feel there is reason to keep the patient in the hospital as she is awake alert and oriented and has no signs of hyperammonemia acute kidney injury or urosepsis. The plan of care was discussed with the patient and she is agreeable to returning home at this time. I did discuss with patient about obtaining a left rib series x-ray based on her report of pain and physical exam showing mild bruising around the lower ribs. However patient does not want them performed at this time and states that if she is still hurting after a few days she will follow-up with her family doctor or return to the ER to discuss x-rays Lab Data Attestation: I reviewed the patient's lab results. Labs: Laboratory Results - last 24 hr 11/21/21 11/21/21 11/21/21 03:05 03:05 03:05 WBC 6.6 RBC 5.18 Hgb 13.5 Hct 40.7 MCV 78.6 L MCH 26.1 L MCHC 33.2 RDW Std Deviation 38.1 RDW Coeff of Nicole 13.5 Plt Count 122 L MPV 9.5 Immature Gran % (Auto) 0.600 Neut % (Auto) 59.1 Lymph % (Auto) 30.8 [place] % (Auto) 7.0 Eos % (Auto) 2.0 Baso % (Auto) 0.5 Absolute Neuts (auto) 3.9 Absolute Lymphs (auto) 2.03 Nucleated RBC % 0 Sodium 137 Potassium 3.8 Chloride 103 Carbon Dioxide 28.0 Anion Gap 6 BUN 9 Creatinine 0.68 Estim Creat Clear Calc 81.67 Est GFR (MDRD) Af Amer 117 Est GFR (MDRD) Non-Af 96 BUN/Creatinine Ratio 13.3 Glucose 207 H Calcium 8.8 Total Bilirubin 0.40 Direct Bilirubin 0.14 AST 19 ALT 22 Alkaline Phosphatase 124 H Ammonia Total Protein 7.2 Albumin 3.6 Globulin 3.6 TSH 4.98 H Urine Color Urine Clarity Urine pH Ur Specific [place] Urine Protein Urine Glucose (UA) Urine Ketones Urine Occult Blood Urine Nitrite Urine Bilirubin Urine Urobilinogen Ur Leukocyte Esterase Urine RBC Urine WBC Ur Squamous Epith Cells Urine Bacteria Urine Mucus Urine Test Salicylates Urine Opiates Screen Urine Methadone Screen Acetaminophen Ur Barbiturates Screen Carbamazepine Ur Phencyclidine Scrn Ur Amphetamines Screen MDMA (Ecstasy) Screen U Benzodiazepines Scrn Urine Cocaine Screen U Cannabinoids Screen Ur Drug Screen Comment Ethyl Alcohol 11/21/21 11/21/21 11/21/21 03:05 03:05 04:23 WBC RBC Hgb Hct MCV MCH MCHC RDW Std Deviation RDW Coeff of Nicole Plt Count MPV Immature Gran % (Auto) Neut % (Auto) Lymph % (Auto) [place] % (Auto) Eos % (Auto) Baso % (Auto) Absolute Neuts (auto) Absolute Lymphs (auto) Nucleated RBC % Sodium Potassium Chloride Carbon Dioxide Anion Gap BUN Creatinine Estim Creat Clear Calc Est GFR (MDRD) Af Amer Est GFR (MDRD) Non-Af BUN/Creatinine Ratio Glucose Calcium Total Bilirubin Direct Bilirubin AST ALT Alkaline Phosphatase Ammonia 15.0 Total Protein Albumin Globulin TSH Urine Color Urine Clarity Urine pH Ur Specific [place] Urine Protein Urine Glucose (UA) Urine Ketones Urine Occult Blood Urine Nitrite Urine Bilirubin Urine Urobilinogen Ur Leukocyte Esterase Urine RBC Urine WBC Ur Squamous Epith Cells Urine Bacteria Urine Mucus Urine Test Salicylates < 1.7 L Urine Opiates Screen NEGATIVE Urine Methadone Screen NEGATIVE Acetaminophen < 2.0 L Ur Barbiturates Screen NEGATIVE Carbamazepine 6.6 Ur Phencyclidine Scrn NEGATIVE Ur Amphetamines Screen NEGATIVE MDMA (Ecstasy) Screen NEGATIVE U Benzodiazepines Scrn NEGATIVE Urine Cocaine Screen NEGATIVE U Cannabinoids Screen POSITIVE H Ur Drug Screen Comment Ethyl Alcohol < 3.0 11/21/21 04:23 WBC RBC Hgb Hct MCV MCH MCHC RDW Std Deviation RDW Coeff of Nicole Plt Count MPV Immature Gran % (Auto) Neut % (Auto) Lymph % (Auto) [place] % (Auto) Eos % (Auto) Baso % (Auto) Absolute Neuts (auto) Absolute Lymphs (auto) Nucleated RBC % Sodium Potassium Chloride Carbon Dioxide Anion Gap BUN Creatinine Estim Creat Clear Calc Est GFR (MDRD) Af Amer Est GFR (MDRD) Non-Af BUN/Creatinine Ratio Glucose Calcium Total Bilirubin Direct Bilirubin AST ALT Alkaline Phosphatase Ammonia Total Protein Albumin Globulin TSH Urine Color Yellow Urine Clarity Clear Urine pH 7.0 Ur Specific [place] 1.010 Urine Protein Negative Urine Glucose (UA) Normal Urine Ketones Negative Urine Occult Blood Negative Urine Nitrite Negative Urine Bilirubin Negative Urine Urobilinogen Normal Ur Leukocyte Esterase 25 H Urine RBC 0 SEEN Urine WBC 0-5 SEEN Ur Squamous Epith Cells 0 SEEN Urine Bacteria 1+ Urine Mucus 0 SEEN Urine Test Negative Salicylates Urine Opiates Screen Urine Methadone Screen Acetaminophen Ur Barbiturates Screen Carbamazepine Ur Phencyclidine Scrn Ur Amphetamines Screen MDMA (Ecstasy) Screen U Benzodiazepines Scrn Urine Cocaine Screen U Cannabinoids Screen Ur Drug Screen Comment Ethyl Alcohol Radiography Diagnostic Testing: Clinical Impression(s) from Imaging Studies Brain CT 11/21/21 03:12 IMPRESSION: undefined Discharge Plan Triage Chief Complaint: Alt LOC ED Provider: Omar Montana Dx/Rx/DC Orders Clinical Impression: Urinary tract infection, Cirrhosis Instructions: Urinary Tract Infections in Women Prescriptions: New cephalexin 500 mg capsule 500 mg PO BID 7 Days Qty: 14 RF: 0 No Action tacrolimus [Prograf] 5 mg capsule 2 mg PO BID RF: 0 mycophenolate mofetil [CellCept] 250 mg capsule 250 mg PO BID RF: 0 zolpidem [Ambien] 10 mg tablet 10 mg PO QHS RF: 0 Myrbetriq 25 mg tablet extended release 24 hr 25 mg PO DAILY RF: 0 ondansetron 4 mg tablet,disintegrating See Rx Instructions PO Q8H PRN (Reason: Nausea) Qty: 180 RF: 2 vitamin B complex Capsule 1 cap PO DAILY RF: 0 carbamazepine 100 mg tablet,chewable 100 mg PO BID Qty: 60 RF: 3 duloxetine 30 mg capsule,delayed release(DR/EC) 30 mg PO DAILY Qty: 7 RF: 0 duloxetine 60 mg capsule,delayed release(DR/EC) 60 mg PO DAILY Qty: 30 RF: 4 ropinirole 1 mg tablet 1.5 mg PO QHS Qty: 45 RF: 3 albuterol sulfate 1 INHALER inhaler 1 - 2 puff inhalation Q4H PRN PRN (Reason: breathing) RF: 0 entecavir 0.5 MG tablet 0.5 mg PO DAILY RF: 0 metformin 500 MG tablet 500 mg PO DAILY RF: 0 Breo Ellipta 100-25 mcg/dose blister with device 2 ea INHALATION DAILY PRN (Reason: Shortness Of Breath) RF: 0 omeprazole 40 mg Capsule,Delayed Release(Dr/Ec) 40 mg PO DAILY RF: 0 hydroxyzine HCl 25 mg tablet 25 mg PO Q4H PRN PRN (Reason: Anxiety) RF: 0 Primary Care Provider: Geeta Odell Referrals: Geeta Odell MD [Primary Care Provider] - Activity Restrictions/Additional Instructions: Please take your antibiotic as directed secondary to the urinary tract infection found on today's work-up. Please return to the ER should you have any further concerns Disposition Disposition: Home, Self Care
[2021-11-21 03:31] LABS: Absolute Lymphocyte Count 2.03 X10^3/uL (0.83-4.51); Absolute Neutrophil Count 3.9 X10^3/uL (2.0-7.7); Basophil# 0.03 X10^3/uL; Basophil% 0.5 % (0-1); Eosinophil# 0.13 X10^3/uL; Hematocrit 40.7 % (37-47); Hemoglobin 13.5 g/dL (12.0-15.0); Lymphocyte # 2.03 X10^3/ul (0.83-4.51); Lymphocyte % 30.8 % (19-41); Mean Corp Hgb Conc 33.2 g/dL (32-36); Mean Corpuscular Hgb 26.1 pg (27.0-32.0); Mean Corpuscular Volume 78.6 fL (81-99); Mean Platelet Vol. 9.5 fl (6.2-12.0); Monocyte# 0.46 X10^3/uL; NRBC Flagged by Analyzer 0 % (0-5); Neutrophil % 59.1 % (47-70); Platelet Count 122 K/mm3 (150-450); RBC Distribution Width CV 13.5 % (11.6-14.6); RBC Distribution Width SD 38.1 fl (35.1-43.9); Red Blood Count 5.18 M/mm3 (4.2-5.4); White Blood Count 6.6 K/mm3 (4.4-11.0)
[2021-11-21 03:48] LABS: Acetaminophen (Tylenol) Level < 2.0 ug/mL (10.0-30.0); Alcohol, Blood (Medical)-Serum < 3.0 mg/dL; Carbamazepine (Tegretol) 6.6 ug/mL (4.0-12.0); Salicylate < 1.7 mg/dL (2.8-20.0)
[2021-11-21 03:53] LABS: AST(SGOT) 19 U/L (15-37); Alanine Aminotransfer ALT/SGPT 22 U/L (13-56); Albumin, Serum 3.6 g/dL (3.2-5.0); Alkaline Phosphatase 124 U/L (45-117); Bilirubin, Direct 0.14 mg/dL (0.00-0.30); Globulin 3.6 g/dL (2.2-4.2); Protein, Total 7.2 g/dL (6.4-8.2)
[2021-11-21 03:56] LABS: Anion Gap 6 (5-15); BUN 9 mg/dL (7-18); BUN/Creat Ratio 13.3 RATIO (10-20); Calcium,Total 8.8 mg/dL (8.5-10.1); Chloride 103 mmol/L (98-107); Creatinine, Serum 0.68 mg/dL (0.55-1.02); EST Glomerular Filtration Rate 96 mL/min (>60); Est Glom Filt Rate - Afr Amer 117 mL/min (>60); Estimated Creatinine Clearance 81.67 ml/min; Glucose 207 mg/dL (74-106); Potassium 3.8 mmol/L (3.5-5.1); Sodium Level 137 mmol/L (136-145); Thyroid Stim Hormone (TSH) 4.98 uIU/mL (0.358-3.74)
[2021-11-21 04:27] LABS: Mucous, Urine 0 SEEN /hpf (<or=2+); Red Blood Cells-Urine 0 SEEN /hpf (0-5); Squamous Epithelial Cells - UA 0 SEEN /hpf (5-10)
[2021-11-21 04:28] LABS: Color, Urine Yellow (Yellow); Glucose, Dipstick Normal (Normal); Ketone-Dipstick Negative (Negative); Leukocyte Esterase-Dipstick 25 /ul (Negative); Nitrite-Dipstick Negative (Negative); Occult Blood-Urine Negative /ul (Negative); Protein-Dipstick Negative (Negative); Urine Bilirubin Dipstick Negative (Negative); Urine Clarity Clear (Clear); Urine Urobilinogen Normal (Normal)
[2021-11-21 04:30] LABS: Internal QC Validated? YES +Cl - CLEAR BKGD; Pregnancy, Urine Negative Negative
[2021-11-21 04:38] LABS: Bacteria 1+ /hpf (None Seen); White Blood Cells 0-5 SEEN /hpf (0-5)
[2021-11-21 04:43] LABS: Amphetamine Urine VISTA NEGATIVE (<1000 ng/mL); Barbiturate Urine VISTA NEGATIVE (< 200 ng/mL); Benzodiazepine Urine VISTA NEGATIVE (< 200 ng/mL); Cocaine Urine VISTA NEGATIVE (< 300 ng/mL); Ecstacy Urine VISTA NEGATIVE (< 500 ng/mL); Methadone Urine VISTA NEGATIVE (< 300 ng/mL); PCP Urine VISTA NEGATIVE (< 25 ng/mL); THC Urine VISTA POSITIVE (< 50 ng/mL); Vista UDS pH Range 7
[2021-11-21 05:17] VITALS: BP 134/83; PULSE 74; RESP 15; O2SAT 98
[2021-11-21 05:32] VITALS: BP 134/83; PULSE 94; RESP 14; O2SAT 96
--- NOTE | 2021-11-21 05:41 | ED.RN ---
patient gave me [phone] numbr saying it is her and asked me to call it. left message there also.
--- NOTE | 2021-11-21 05:53 | ED.RN ---
CAlled daughter again and went to voicemail again
--- NOTE | 2021-11-21 06:05 | RAD_ITS ---
STUDY: X-RAY - UNILATERAL RIBS ( LEFT ) WITH CHEST REASON FOR EXAM: Female, 56 years old. pain TECHNIQUE - RIBS: 4 view(s) of the ribs. TECHNIQUE - CHEST: Single AP portable view of the chest. COMPARISON: 03/12/2021 FINDINGS - RIBS: Normal visualized ribs without a demonstrated fracture. FINDINGS - CHEST: The lungs are clear and expanded. There is no demonstrated pleural abnormality. Normal size heart. Normal mediastinum and erin. Normal visualized pulmonary arteries. Normal visualized aortic arch and descending thoracic aorta. Normal visualized thoracic spine. There is degenerative osteoarthritis of the bilateral shoulders. There is no demonstrated abnormality of the visualized soft tissue structures of the upper abdomen. RAD/Ribs Uni Min 3V w/PA Chest IMPRESSION: RIBS: Normal x-ray examination of the ribs. CHEST: Degenerative changes, as described above. No demonstrated acute cardiopulmonary process. Electronically Signed: Alondra Ledbetter MD at 6:47 EDT ,
--- NOTE | 2021-11-21 06:32 | ED.RN ---
Dr. Montana aware patient declined the toradol. He is looking at xray now to evaluate for appropriate therapy.
[2021-11-21] MEDS: Lidocaine 5% Patch 1 PATCH TOPICAL (07:03)
== END 2021-11-21 07:03 | disposition home or self-care (01) ==
PROVIDERS: Emergency Provider Emergency Medicine; PCP Family Medicine; Visit Provider Emergency Medicine
DX: N39.0 Urinary tract infection, site not specified (principal); K74.60 Unspecified cirrhosis of liver; E11.40 Type 2 diabetes mellitus with diabetic neuropathy, unspecified; G40.909 Epilepsy, unspecified, not intractable, without status epilepticus; M79.7 Fibromyalgia; F41.9 Anxiety disorder, unspecified; R31.9 Hematuria, unspecified; F32.A Depression, unspecified; Z86.73 Personal history of transient ischemic attack (TIA), and cerebral infarction without residual deficits; Z86.718 Personal history of other venous thrombosis and embolism
CPT/HCPCS: 70450; 71101; 80048; 80076; 80156; 80307; 80329; 81001; 81025; 82077; 82140; 84443; 85025; 87086; 87088; 93005; 99284; A4216; G0480

== ENCOUNTER 2021-11-27 12:01 | Day surgery (SDC) | payer MEDICARE, OTHER, SELFPAY ==
[2021-11-27 12:27] VITALS: BP 144/78; PULSE 89; RESP 16; TEMP 36.5; O2SAT 100; BMI 28.6
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
[2021-11-27] MEDS: Lactated Ringers 1,000 ML 15 ML IV (13:00)
--- NOTE | 2021-11-27 13:00 | IMM_PTH ---
PATIENT: STEPHANE CABALLERO LOC: EN U#:[id number] AGE/SX: 56/F ROOM: RE11/27/[address]: Dr. Raoul June DO : 1965 BED: DIS: 11/27/2021 SPEC #: [id number] RECD: 11/28/21 14:58 STATUS: HINA REQ #: [id number] RISHI: 11/27/21 13:[address]: Raoul June DEPT: IMMUNOHISTOCHEMISTRY RECD BY: Vesna Delgado ENTERED: 11/28/21 14:59 SP TYPE: IMMUNO OTHR DR: Dr. Geeta Odell MD Tissues: A - Stomach, NOS Procedures: H Pylori (initial) PHYSICIAN & INSTITUTION [place] [id number] SPECIMEN INFORMATION: Tissue Source: A ? Gastric ulcer biopsy Clinical Info: Esophageal dysphagia, cirrhosis Specimen Number: [id number] CPT code: 05608 METHODOLOGY: Deparaffinized sections of prefer/formalin-fixed tissue or PAP/DQ stained slides are incubated with monoclonal/polyclonal antibodies/oligonucleotide probes. Localization is made via biotin free immunoperoxidase method. Appropriate controls are performed and reacted as expected. Results on target cell population are indicated in the following table: RESULTS: ANTIBODY / CLONE RESULT Block A H Pylori (polyclonal) negative These tests were developed and their performance characteristics determined by [facility]. They may not have been cleared or approved by the U.S. Food and Drug Administration. The FDA has determined that such clearance or approval is not necessary. The above immunohistochemical/dualISH markers are ordered and reviewed by the Pathologist. INTERPRETATION: A. Gastric ulcer, biopsy: Negative for Helicobacter pylori organisms. TOYIN:kristy 11/29/2021
--- NOTE | 2021-11-27 13:00 | EGD_PTH ---
PATIENT: STEPHANE CABALLERO LOC: EN U#:[id number] AGE/SX: 56/F ROOM: RE11/27/[address]: Dr. Raoul June DO : 1965 BED: DIS: 11/27/2021 SPEC #: [id number] RECD: 11/27/21 17:00 STATUS: HINA REVale #: [id number] RISHI: 11/27/21 13:[address]: Raoul June DEPT: SURGICAL PATHOLOGY RECD BY: Alba Henson ENTERED: 11/28/21 11:22 SP TYPE: EGD BIOPSY OT DR: Dr. Geeta Odell MD Tissues: A - Gastric mucous membrane B - Esophagus, NOS Procedures: Special Stain Group II Surgery Specimen Level IV Alcian Blue/PAS (control) HEADER OPERATION: EGD (MAC) biopsy PRE-OP DIAGNOSIS: Esophageal dysphagia, cirrhosis TISSUE SUBMITTED: A ? Gastric ulcer biopsy, B ? Distal esophagus biopsy MICROSCOPIC DIAGNOSIS A. Gastric ulcer, biopsy: Fragments of gastric mucosa with focal ulceration and acute and chronic inflammation. See comment. B. Distal esophagus, biopsy: Fragments of gastroesophageal mucosa with chronic inflammation. Intestinal metaplasia (goblet cell metaplasia) not identified. See comment. SJ:rg 11/29/2021 COMMENT A. The results of immunohistochemistry for Helicobacter pylori will be reported separately ([id number]). B. Alcian blue/PAS stain with matched control is used in the evaluation of the specimen. MICROSCOPIC DESCRIPTION Slides are reviewed. GROSS DESCRIPTION A - Received in fixative is one container labeled with the patient's name and designated gastric ulcer biopsy. The specimen consists of two irregular fragments of light artis soft tissue that in aggregate measure 1 x 0.6 x 0.1 cm. The specimen is totally submitted in one cassette. B - Received in fixative is one container labeled with the patient's name and designated distal esophagus biopsy. The specimen consists of multiple irregular fragments of light artis soft tissue that in aggregate measure 1 x 0.3 x 0.1 cm. The specimen is totally submitted in one cassette. / AM:kristy 11/28/2021 TC:2 CPT: 32992 x2, [id number]
--- NOTE | 2021-11-27 13:09 | PCM.HP.BLA ---
History and Physical Date of Admission: 11/27/21 56 F who presents to the office today for Last visit 06.07.21 due to a history of a positive cologard. History of multiple adenomatous polyps. She is on immunosuppressive therapy r/t history of liver transplant r/t MARMOLEJO stage IV. Additional history of epilepsy (follows neurology), migraine (neurology), restless leg (neurology), memory loss (neurology), esophageal varices with history of multiple banding, C.Diff, pseudoseizure, fibromyalgia, MARMOLEJO. Colonoscopy performed 06.21.21 finding diverticulosis in recto-sigmoid colon and sigmoid colon. One 5mm polyp removed from cecum. Biopsy - Cecal polyp, tubular adenoma For the last couple of months she has been having a lot of heartburn. Has reduced caffeine and has been watching diet for a while. Currently taking Prilosec. Additionally, reports difficulty swallowing for the last year or two. She has been having difficulty mostly with meat and very cold liquids. ROS Const Constitutional: No anorexia, fatigue, fever(s), weight change or sleep problems Eyes Eyes: No change in vision ENT ENT: Positive for difficulty swallowing; No abnormal hearing, tongue swelling or throat swelling Resp Respiratory: No cough or shortness of breath Cardio Cardiology: No chest pain at rest, chest pain with exertion, shortness of breath or dyspnea on exertion Gastro GI: Positive for difficulty swallowing Genitourinary-Female: No difficulty urinating or burning urination Musc Musculoskeletal: No joint pain, joint swelling, muscle weakness or decreased muscle mass Skin Skin: No hair loss in leg, yellowing of the eye, itchy eyes, rash, skin ulcer or skin swelling Neuro Neurology: No abnormal hearing, abnormal movements, confusion, unsteady gait/balance or memory loss Psych Psychiatric: No anxiety, No confusion and No memory loss Endo Endocrine: No fatigue or weight change Aller/Imm Allergy/Immunologic: No itchy eyes, throat swelling or tongue swelling Ron/Lymp Hematologic/Lymphatic: No easy bleeding, easy bruising or enlarged lymph nodes Exam Const General: cooperative and comfortable Nutritional Appearance: average body habitus and well nourished [facility] Head: normal to inspection Ears: hearing grossly normal bilaterally Nose: external nose normal Face and sinus: normal facial exam Mouth: oral mucosae normal Throat: posterior oropharynx normal Eyes General: appearance normal, both eyes and all related structures Neck Neck: normal visual inspection Chest Chest palpation & inspection: normal inspection of the chest and normal palpation of entire chest wall Resp Effort & Inspection: normal respiratory effort Auscultation: Bilateral: Clear to Auscultation Cardio Palpation: normal PMI Rate: regular rate Rhythm: regular rhythm GI Inspection: normal to inspection Auscultation: normal bowel sounds Percussion: normal to percussion Palpation: no hepatosplenomegaly Skin General: no rashes or lesions noted Neuro General: patient alert Extrem General: normal to inspection Psych Affect: normal affect Quality Reporting Tobacco Screening ([facility] 138) Smoking Status: Never smoker Assessment and Plan Assessment and Plan (1) Esophageal dysphagia: Status: Acute Orders: Orders: EGD Today Plan - Dr. Silveira Friend, DO: She will undergo an EGD for evaluation of her upper GI tract. I will put her on nystatin swish and swallow because there seems to be an interaction with fluconazole and regarding her Prograf that she takes. This is for possible diagnosis of esophageal candidiasis. She may also need a gastric emptying study to evaluate upper GI tract due to the fact that she has diabetes. She will also continue on PPI therapy. All questions were answered. She was explained alternatives, risk, benefits including not withstanding bleeding, infection, sepsis, perforation, need for emergent surgery . She will have an ASA of 3. (2) Cirrhosis: Status: Acute Plan - Dr. Silveira Friend, DO: Patient sees retail pricing coordinator in [place]. She has had no changes in her antirejection medicines. She has had no recent infections. She has not had any itching, no ascites, no dark in urine. Far as her liver transplant goes she going very well. Plan Details Other Medications: New: nystatin swish and swallow I have re-examined the patient. There are no clinical changes since date of exam.
[2021-11-27 13:30] LABS: Bedside Glucose 181 mg/dL (74-106)
[2021-11-27 13:37] VITALS: BP 122/76; BP 144/78; PULSE 84; RESP 16; TEMP 36.6; O2SAT 94
[2021-11-27 13:42] VITALS: BP 118/75; BP 144/78; PULSE 81; RESP 16; O2SAT 95
--- NOTE | 2021-11-27 13:44 | OP.EGD_ITS ---
Patient Name: Jazmin Pratt Procedure Date: 11/27/2021 1:14 PM Date of : 1965 Age: 56 Procedure: Upper GI endoscopy Indications: Epigastric abdominal pain, Dysphagia Providers: Raoul June DO Referring MD: Geeta Odell Medicines: Monitored Anesthesia Care Patient Profile: This is a 56 year old female. Refer to note in patient chart for documentation of history and physical. Patient has symptoms of chronic abdominal cramping and chronic abdominal distention. Complications: No immediate complications. Procedure: Pre-Anesthesia Assessment: - Prior to the procedure, a History and Physical was performed, and patient medications and allergies were reviewed. The risks and benefits of the procedure and the sedation options and risks were discussed with the patient. All questions were answered and informed consent was obtained. Patient identification and proposed procedure were verified by the physician in the pre-procedure area. Mental Status Examination: alert and oriented. Airway Examination: normal oropharyngeal airway and neck mobility. Respiratory Examination: clear to auscultation. CV Examination: normal. Prophylactic Antibiotics: The patient does not require prophylactic antibiotics. Prior Anticoagulants: The patient has taken no previous anticoagulant or antiplatelet agents. After reviewing the risks and benefits, the patient was deemed in satisfactory condition to undergo the procedure. The anesthesia plan was to use moderate sedation / analgesia (conscious sedation). Immediately prior to administration of medications, the patient was re-assessed for adequacy to receive sedatives. The heart rate, respiratory rate, oxygen saturations, blood pressure, adequacy of pulmonary ventilation, and response to care were monitored throughout the procedure. The physical status of the patient was re-assessed after the procedure. After obtaining informed consent, the endoscope was passed under direct vision. Throughout the procedure, the patient's blood pressure, pulse, and oxygen saturations were monitored continuously. The gastroscope was introduced through the mouth, and advanced to the second part of duodenum. The upper GI endoscopy was accomplished without difficulty. The patient tolerated the procedure well. Scope In: 1:28:07 PM Scope Out: 1:32:53 PM Total Procedure Duration Time 0 hours 4 minutes 46 seconds Findings: A moderate Schatzki ring was found in the lower third of the esophagus. A guidewire was placed and the scope was withdrawn. Dilation was performed with a Savary dilator with no resistance at 36 Fr. The dilation site was examined following endoscope reinsertion and showed moderate improvement in luminal narrowing. Estimated blood loss was minimal. The Z-line was irregular and was found 37 cm from the incisors. Biopsies were taken with a cold forceps for histology. Verification of patient identification for the specimen was done. Estimated blood loss was minimal. Localized mild inflammation characterized by congestion (edema) was found in the gastric antrum. One non-bleeding superficial gastric ulcer with no stigmata of bleeding was found in the gastric antrum. The lesion was 6 mm in largest dimension. Biopsies were taken with a cold forceps for histology. Verification of patient identification for the specimen was done. Estimated blood loss was minimal. The second portion of the duodenum was normal. Impression: - Moderate Schatzki ring. Dilated. - Z-line irregular, 37 cm from the incisors. Biopsied. - Gastritis. - Non-bleeding gastric ulcer with no stigmata of bleeding. Biopsied. - Normal second portion of the duodenum. Recommendation: - Discharge patient to home. - Resume previous diet PRN. - Continue present medications. Procedure Code(s): --- Professional --- 57334, Esophagogastroduodenoscopy, flexible, transoral; with insertion of guide wire followed by passage of dilator(s) through esophagus over guide wire 10508, 59, Esophagogastroduodenoscopy, flexible, transoral; with biopsy, single or multiple CPT copyright 2017 [employer]. All rights reserved. The codes documented in this report are preliminary and upon sales and service advisor review may be revised to meet current compliance requirements. Raoul June DO 11/27/2021 1:44:04 PM This report has been signed electronically. Number of Addenda: 1 Note Initiated On: 11/27/2021 1:14 PM Addendum Number: 1 Addendum Date: 03/19/2022 6:22:51 AM MAC was used as sedation for this procedure. Raoul June DO 03/19/2022 6:22:55 AM This report has been signed electronically.
[2021-11-27 13:45] VITALS: BP 124/75; BP 144/78; PULSE 83; RESP 16; O2SAT 97
--- NOTE | 2021-11-27 13:45 | OP.CCLET_ITS ---
03/19/2022 Geeta Odell [place] [id number] [place] [address] Re : Upper GI endoscopy procedure for Jazmin Pratt Dear Dr. Odell This procedure was performed on Saturday, November 27, 2021. My impressions and recommendations are as follows: Impressions : - Moderate Schatzki ring. Dilated. - Z-line irregular, 37 cm from the incisors. Biopsied. - Gastritis. - Non-bleeding gastric ulcer with no stigmata of bleeding. Biopsied. - Normal second portion of the duodenum. Recommendations : - Discharge patient to home. - Resume previous diet PRN. - Continue present medications. My findings are described in the full procedure note, which is enclosed. If I can be of further assistance, please feel free to contact me at . Sincerely, Raoul Friend, 11/27/2021 1:44:04 PM This report has been signed electronically.
[2021-11-27 13:51] VITALS: BP 126/80; BP 144/78; PULSE 82; RESP 16; TEMP 36.4; O2SAT 98
[2021-11-27 14:12] VITALS: BP 144/78
== END 2021-11-27 15:03 | disposition home or self-care (01) ==
LOC: EN 12:02 → AC 12:05
PROVIDERS: PCP Family Medicine; Referring Provider Family Medicine; Visit Provider Internal Medicine Gastroenterology
PROC: 0DJ08ZZ Inspection of Upper Intestinal Tract, Via Natural or Artificial Opening Endoscopic (ICD-10-PCS; CPT 43235; principal; 2021-11-27 12:55)
DX: R13.10 Dysphagia, unspecified (principal); G40.909 Epilepsy, unspecified, not intractable, without status epilepticus; K29.70 Gastritis, unspecified, without bleeding; K25.9 Gastric ulcer, unspecified as acute or chronic, without hemorrhage or perforation; F41.9 Anxiety disorder, unspecified; F32.A Depression, unspecified; Z86.010 Personal history of colon polyps; G25.81 Restless legs syndrome
CPT/HCPCS: 43248; 43239; 82962; 88305; 88313; 88342; J7120; J2405

== ENCOUNTER 2021-11-28 23:13 | Emergency (ER) | payer MEDICARE, OTHER, SELFPAY ==
[2021-11-28 23:14] VITALS: BP 149/99; PULSE 90; RESP 18; TEMP 36.3; O2SAT 98; BMI 28.6
--- NOTE | 2021-11-29 | RAD_ITS ---
STUDY: X-RAY - RIGHT SHOULDER REASON FOR EXAM: Female, 56 years old. pain TECHNIQUE: 2 view(s) of the shoulder. COMPARISON: None. FINDINGS: Normal glenohumeral articulation. Normal acromioclavicular joint. Normal acromion. Normal humeral head and visualized proximal humerus. The soft tissue structures are unremarkable. There is mildly displaced fracture of the lateral aspect of the right clavicle. Normal visualized pulmonary apex. RAD/Shoulder min 2 Views IMPRESSION: There is mildly displaced fracture of the lateral aspect of the right clavicle. Electronically Signed: Alondra Ledbetter MD at 1:42 EDT ,
--- NOTE | 2021-11-29 | RAD_ITS ---
STUDY: X-RAY - RIGHT CLAVICLE REASON FOR EXAM: Female, 56 years old. pain TECHNIQUE: 2 view(s) of the clavicle. COMPARISON: None. FINDINGS: There is mildly displaced fracture of the lateral aspect of the right clavicle. Normal acromioclavicular articulation. Normal visualized sternoclavicular articulation. Normal visualized pulmonary apex. RAD/Clavicle IMPRESSION: There is mildly displaced fracture of the lateral aspect of the right clavicle. Electronically Signed: Alondra Ledbetter MD at 1:41 EDT ,
[2021-11-29] MEDS: Morphine 4 MG/ML Syringe IV (00:03)
[2021-11-29] MEDS: Ondansetron 4 MG/2 ML Vial IV (00:03)
--- NOTE | 2021-11-29 01:02 | EDS_ITS ---
HPI History of Present Illness Chief Complaint: Fall Narrative Narrative: Patient is a 56-year-old female who states that about 1 hour prior to arrival she was cleaning a small pool when she lost her balance and fell. She states she landed on her right side and hurt her right shoulder. She does report a history of rotator cuff surgery on that side. She states she did strike her head but denies any loss of consciousness or blood thinner use. Patient states she has had difficulty moving her right shoulder since the fall and has concerned about possible fracture or dislocation and therefore comes in for evaluation [facility] Medical History Alcohol use Anxiety Arthritis Asthma Back pain Blackout Bladder disease Cancer Cirrhosis COVID CVA (cerebral vascular accident) Diabetes Dietary restriction DVT (deep venous thrombosis) DVT (deep venous thrombosis) Epilepsy Gastric reflux Hiatal hernia History of echocardiogram History of IBS History of pain when walking History of stress test History of ulceration Immunocompromised state due to drug therapy Leg cramps Migraine Migraine headache MARMOLEJO (nonalcoholic steatohepatitis) Neuropathy Non-smoker Restless legs Seasonal allergies Seizures Serum ammonia increased Shortness of breath on exertion TIA (transient ischemic attack) Wears contact lenses Wears glasses Home Medications albuterol sulfate 90 mcg/actuation aerosol inhaler 1 - 2 puff inhalation Q4H PRN PRN breathing 02/08/18 [History Last Taken 06/20/21] entecavir 0.5 mg tablet 0.5 mg PO DAILY hepatitis B 12/25/18 [History Last Taken 06/20/21] mycophenolate mofetil 250 mg capsule (CellCept) 250 mg PO BID antirejection 02/17/20 [History Last Taken 06/20/21] tacrolimus 5 mg capsule, immediate-release (Prograf) 2 mg PO BID antirejection 02/17/20 [History Last Taken 06/20/21] zolpidem 10 mg tablet (Ambien) 10 mg PO QHS sleep 02/17/20 [History Last Taken 06/20/21] metformin 500 mg tablet 500 mg PO DAILY diabetes 09/12/20 [History Last Taken 06/20/21] fluticasone furoate 100 mcg-vilanterol 25 mcg/dose inhalation powder (Breo Ellipta) 2 ea inhalation DAILY PRN Shortness Of Breath 11/19/20 [History Last Taken 06/20/21] hydroxyzine HCl 25 mg tablet 25 mg PO Q4H PRN PRN Anxiety 03/12/21 [History Last Taken 06/20/21] omeprazole 40 mg capsule,delayed release 40 mg PO DAILY heartburn 03/12/21 [History Last Taken 06/20/21] mirabegron 25 mg tablet,extended release 24 hr (Myrbetriq) 25 mg PO DAILY 04/09/21 [History Last Taken 06/20/21] ondansetron 4 mg disintegrating tablet See Rx Instructions PO Q8H PRN Nausea #180 tabs 07/26/21 [Rx Last Taken Unknown] vitamin B complex 1 cap PO DAILY 11/01/21 [History Last Taken Unknown] carbamazepine 100 mg chewable tablet 100 mg PO BID #60 tabs 11/02/21 [Rx Last Taken Unknown] duloxetine 60 mg capsule,delayed release 60 mg PO DAILY #30 caps 11/02/21 [Rx Last Taken Unknown] ropinirole 1 mg tablet 1.5 mg PO QHS restless legs #45 tabs 11/02/21 [Rx Last Taken Unknown] oxycodone 5 mg capsule 5 mg PO Q6H PRN pain 3 days #12 caps 11/29/21 [Rx Last Taken Unknown] Allergy/AdvReac Type Severity Reaction Status Date / Time sulfamethoxazole Allergy Fever and Verified 11/28/21 23:16 [From Bactrim] skin rash trimethoprim [From Bactrim] Allergy Fever and Verified 11/28/21 23:16 skin rash diphenhydramine HCl AdvReac climb the Verified 11/28/21 23:16 [From Benadryl] rose lorazepam [From Ativan] AdvReac Climb the Verified 11/28/21 23:16 rose prochlorperazine edisylate AdvReac climb the Verified 11/28/21 23:16 [From Compazine] rose prochlorperazine maleate AdvReac climb out Verified 11/28/21 23:16 [From Compazine] of my body promethazine HCl AdvReac climb the Verified 11/28/21 23:16 [From Phenergan] rose topiramate [From Topamax] AdvReac Other Verified 11/28/21 23:16 tramadol AdvReac climb the Verified 11/28/21 23:16 rose Family History Mother Heart disease COPD (chronic obstructive pulmonary disease) Father Chronic alcoholism Surgical History H/O liver transplant History of lumbar spinal fusion Hx of breast reduction, elective Hx of cholecystectomy Hx of colonoscopy Hx of dilation and curettage Hx of hemorrhoidectomy Hx of hysterectomy Hx of left knee surgery Hx of repair of right rotator cuff Hx of right knee surgery Hx of tubal ligation Hx of ventral hernia repair Liver transplant recipient Social History household members: spouse Smoking Status: Never smoker alcohol intake: former substance use type: does not use ROS ROS ED Constitutional Constitutional ED: Denies chills or fever(s) Eyes Eyes: Denies change in vision ENT ENT ED: Denies sore throat Cardiovascular Cardiovascular: Denies chest pain Respiratory/Chest Respiratory/Chest: Denies cough or dyspnea Gastrointestinal Gastrointestinal: Denies abdominal pain, diarrhea, nausea or vomiting Genitourinary Genitourinary ED: Denies dysuria Musculoskeletal Musculoskeletal: Reports other Details: Positive right shoulder pain ; Denies myalgias or neck pain Integumentary Denies Abrasions or rash Neurologic Neurologic: Denies headache(s), paresthesias or weakness Hematologic/Lymphatic Hematologic/Lymphatic: Denies easy bleeding or easy bruising EXAM Physical Exam Const Vital Signs: 11/28/21 23:14 11/28/21 23:20 Temperature 97.3 F L Temperature Source Temporal Pulse Rate 90 Respiratory Rate 18 Respiratory Effort Normal Non-Labored Respiratory Depth Normal Respiratory Pattern Normal Blood Pressure 149/99 H Blood Pressure Mean 115 Pulse Ox 98 Oxygen Delivery Method Room Air Room Air Positive well nourished and well developed General Appearance ED: well developed HEENT Reports moist mucous membranes HEENT Narrative: No signs of depressed or basilar skull fracture Eyes PERRL and EOMs intact bilaterally Neck supple Chest Wall palpation of chest normal Resp normal respiratory effort and clear to auscultation bilaterally Cardio regular rate and regular rhythm GI non-tender and non-distended Auscultation: normoactive bowel sounds Palpation: soft Extremity Extremity Narrative: Right upper extremity is neurovascularly intact; AIN/PIN are intact and normal. There is no obvious bony deformity or joint effusion. No obvious sulcus sign noted. there is diffuse pain on palpation of the right shoulder as well as the right clavicle region. Active and passive range of motion is decreased seco ndary to pain. The pelvis is stable there is no shortening or external rotation of either lower extremity. Neuro oriented x3 and CN's II-XII intact bilaterally Sensorium / Orientation: alert Psych mental status grossly normal Skin no rashes or lesions noted Skin Narrative: No abrasions or ecchymosis present MDM MDM MDM Narrative Medical decision making narrative: Patient presented to the ER with a mechanical fall therefore there is no need for cardiac or syncope work-up. She did report striking her head but she has no history of bleeding disorder or blood thinner use and no signs of head trauma so I do not feel there is need for head CT either. X-rays were obtained of the right clavicle and shoulder secondary to her symptoms. X-ray did show a distal clavicle fracture without dislocation. Patient is neurovascularly intact and closed and therefore she can be placed in a sling and given pain medication follow-up with orthopedics for further care. Radiography Diagnostic Testing: Clinical Impression(s) from Imaging Studies Clavicle X-Ray 11/29/21 00:00 IMPRESSION: There is mildly displaced fracture of the lateral aspect of the right clavicle. Electronically Signed: Alondra Ledbetter MD at 1:41 EDT Reading Location ID and State: [facility] / [place] Tel , Service support , Shoulder X-Ray 11/29/21 00:00 IMPRESSION: There is mildly displaced fracture of the lateral aspect of the right clavicle. Electronically Signed: Alondra Ledbetter MD at 1:42 EDT , X-ray of the right shoulder as interpreted by the emergency medicine physician reveals no acute fracture or dislocation X-ray of the right clavicle as interpreted by the emergency medicine physician reveals a distal clavicle fracture without displacement Discharge Plan Triage Chief Complaint: Fall ED Provider: Omar Montana Dx/Rx/DC Orders Clinical Impression: Closed fracture of right clavicle, Accidental fall Instructions: Fx Shoulder Blade Collarbone Prescriptions: New oxycodone 5 mg capsule 5 mg PO Q6H PRN (Reason: pain) 3 Days Qty: 12 0RF No Action tacrolimus [Prograf] 5 mg capsule 2 mg PO BID mycophenolate mofetil [CellCept] 250 mg capsule 250 mg PO BID zolpidem [Ambien] 10 mg tablet 10 mg PO QHS Myrbetriq 25 mg tablet extended release 24 hr 25 mg PO DAILY ondansetron 4 mg tablet,disintegrating See Rx Instructions PO Q8H PRN (Reason: Nausea) Qty: 180 2RF Rx Instructions: 1 to 2 tablets PO every 8 hours PRN vitamin B complex Capsule 1 cap PO DAILY carbamazepine 100 mg tablet,chewable 100 mg PO BID Qty: 60 3RF duloxetine 60 mg capsule,delayed release(DR/EC) 60 mg PO DAILY Qty: 30 4RF Rx Instructions: begin after completing one week course of duloxetine 30mg daily ropinirole 1 mg tablet 1.5 mg PO QHS Qty: 45 3RF albuterol sulfate 1 INHALER inhaler 1 - 2 puff inhalation Q4H PRN PRN (Reason: breathing) entecavir 0.5 MG tablet 0.5 mg PO DAILY metformin 500 MG tablet 500 mg PO DAILY fluticasone furoate-vilanterol [Breo Ellipta] 100-25 mcg/dose blister with device 2 ea INHALATION DAILY PRN (Reason: Shortness Of Breath) Label Comments: INHALE 1 PUFF EVERY DAY omeprazole 40 mg Capsule,Delayed Release(Dr/Ec) 40 mg PO DAILY hydroxyzine HCl 25 mg tablet 25 mg PO Q4H PRN PRN (Reason: Anxiety) Label Comments: TAKE 1 TABLET BY MOUTH UP TO 6 TIMES DAILY NEEDED Primary Care Provider: Geeta Odell Referrals: Geeta Odell MD [Primary Care Provider] - Sanjiv Aly DO [STAFF PHYSICIAN] - 3-5 Days Activity Restrictions/Additional Instructions: Please continue to wear your sling for stabilization of your clavicle fracture and follow-up with orthopedics to discuss need for further testing or treatment options. Please return to the ER should you have any further concerns Disposition Disposition: Home, Self Care
[2021-11-29] MEDS: oxyCODONE 5 MG Tablet 10 MG PO (01:56)
== END 2021-11-29 02:32 | disposition home or self-care (01) ==
PROVIDERS: Emergency Provider Emergency Medicine; PCP Family Medicine; Visit Provider Emergency Medicine
DX: S42.031A Displaced fracture of lateral end of right clavicle, initial encounter for closed fracture (principal); E11.40 Type 2 diabetes mellitus with diabetic neuropathy, unspecified; W19.XXXA Unspecified fall, initial encounter; Z86.16 Personal history of COVID-19; Z86.73 Personal history of transient ischemic attack (TIA), and cerebral infarction without residual deficits
CPT/HCPCS: 73000; 73030; 96374; 96375; 99284; A4216; J2405

== ENCOUNTER → 2022-01-23 | Outpatient (CLI) | payer MEDICARE, OTHER, SELFPAY ==
[2022-01-23 15:00] LABS: Absolute Lymphocyte Count 1.57 X10^3/uL (0.83-4.51); Absolute Neutrophil Count 3.8 X10^3/uL (2.0-7.7); Basophil# 0.02 X10^3/uL; Basophil% 0.3 % (0-1); Eosinophil# 0.09 X10^3/uL; Eosinophils% 1.5 % (0-5); Hematocrit 36.7 % (37-47); Hemoglobin 12.3 g/dL (12.0-15.0); Lymphocyte # 1.57 X10^3/ul (0.83-4.51); Lymphocyte % 26.9 % (19-41); Mean Corp Hgb Conc 33.5 g/dL (32-36); Mean Corpuscular Hgb 26.7 pg (27.0-32.0); Mean Corpuscular Volume 79.8 fL (81-99); Mean Platelet Vol. 10.1 fl (6.2-12.0); Monocyte# 0.33 X10^3/uL; Monocyte% 5.7 % (0-10); NRBC Flagged by Analyzer 0 % (0-5); Neutrophil # 3.81 X10^3/uL (2.7-7.7); Neutrophil % 65.3 % (47-70); Platelet Count 119 K/mm3 (150-450); RBC Distribution Width CV 13.3 % (11.6-14.6); RBC Distribution Width SD 37.2 fl (35.1-43.9); White Blood Count 5.8 K/mm3 (4.4-11.0)
[2022-01-23 15:27] LABS: AST(SGOT) 9 U/L (15-37); Alanine Aminotransfer ALT/SGPT 16 U/L (13-56); Albumin, Serum 3.2 g/dL (3.2-5.0); Alkaline Phosphatase 139 U/L (45-117); Anion Gap 6 (5-15); BUN 9 mg/dL (7-18); BUN/Creat Ratio 12.2 RATIO (10-20); Bilirubin, Direct 0.12 mg/dL (0.00-0.30); Calcium,Total 8.7 mg/dL (8.5-10.1); Chloride 104 mmol/L (98-107); Creatinine, Serum 0.74 mg/dL (0.55-1.02); EST Glomerular Filtration Rate 87 mL/min (>60); Est Glom Filt Rate - Afr Amer 105 mL/min (>60); Globulin 3.5 g/dL (2.2-4.2); Glucose 265 mg/dL (74-106); Phosphorus 2.5 mg/dL (2.5-4.9); Potassium 3.7 mmol/L (3.5-5.1); Protein, Total 6.7 g/dL (6.4-8.2); Sodium Level 138 mmol/L (136-145)
[2022-01-26 15:44] LABS: Tacrolimus (FK506) 4.9 ng/mL (2.0-20.0)
== END | disposition home or self-care (01) ==
PROVIDERS: PCP Family Medicine
DX: Z51.81 Encounter for therapeutic drug level monitoring (principal); Z94.4 Liver transplant status; Z79.899 Other long term (current) drug therapy
CPT/HCPCS: 36415; 80048; 80076; 80197; 84100; 85025

== ENCOUNTER 2022-02-05 15:00 | Outpatient (RCR) | payer MEDICARE, OTHER, SELFPAY ==
--- NOTE | 2022-01-08 18:14 | HP.PTEVAL_ITS ---
Patient's Visit Information STEPHANE REYES is a 56 year old F referred to Physical Therapy by FERNANDA Patton with a diagnosis of R clavicle fracture. Date of Evaluation: 01/08/22 Physical Therapist: Yoni Samuel, DPT, OCS, CSCS - Visit Plan Frequency: 2x /Week Duration: 4-6 Weeks Plan: 2x/week for 4 weeks for: 1. A/PROM of R shoulder. 2. Gentle painfree strength progression of RC then delts and postural muscle then chest. 3. Progress all to I once pain 0-1/10 and AROM full. - Subjective Fell on 11/28 slipping in pool and fracturing R clavicle. hurt right away. Went to ER for Xray and found fracture adn gave pain meds. Gave sling and in that for a while 4 weeks. Sent to [facility] [place] 3 days later. Saw 2 weeks in a row and then two weeks later. Injury was 5+ weeks ago. Was feeling good the 2nd week and overdid it pulling weeds and carrying thinks and then it hurt. Lives with daughter. Was doing good and may have overdone it yesterday. was painfree but today it hurtsR lateral shoulder. Can't think of what she did other than taking laundry out of washer and hanging it with R arm. limited in cleaning pool and using R UE still to some degree. Can get dresses and wash self. Putting hair up. Hard to go behind her with arm. Pulling trash cans down [place]yla with arms behind her but it hurt. Is off work, [employer] in 2018 was on disability. 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 Been off since this happened and doctor wants off unfebruary. However she wants on schedule Jan 21. Mows with tractor 3 acres. - Pain R shoulder Pain Intensity (Out of 10): 0 Pain Intensity Range: 0, 4 - Objective Walks and transfers I today. Posture is forward head adn scap B. Cervical aROM WFL about 55 B rotation and 45extension without pain but stiff. Scap circles are hesitant on R but able once shown with full ROM and minimal discomfort. AROM L shoulder WNL: R shoulder 130 flexion, 120 abd, 40 ext rotation adn L5 IR all with tightness and hesitation at end range. PROm same with empty endfeel limtied by muscle protection. Strength elbows and wrists WFL, R shoulder NT, L shoulder 4/5 all motions. Can contract R shoulder in rotations and flexion/abduction/extension. - Balance/Special Test Scores Quick DASH Score: 54.5450 - Goals Goal 1:: ST: Full aROM without pain or hesitation R shoulder Goal Time Frame: 2 Weeks Goal 2:: LT: i apporpiate strength for R shoulder and Rc without pain Goal Time Frame: 4-6 Weeks Goal 3:: patient feel shoulder 95% back to normal without pain or need ffor meds for shoulder Goal Time Frame: 4-6 Weeks Goal 4:: pull garbage can and do hair without noticing shoulder pain Goal Time Frame: 4-6 Weeks - Rehabilitation Potential Physical Therapy Diagnosis: R clavicle fracture and resulting ROM and stiffness and mobility deficits. Rehabilitation Potential: Good - Anticipated Interventions Patient/Client Instruction: Educate patient on: Condition, Plan of Care For the Purpose of:: To decrease pain, To increase ROM, To improve muscle performance and motor function, To increase tolerance to activity/condition/position Therapeutic Exercise to Include: Strength training, Flexibilty training, Passive ROM, Active ROM, Scapular Strength/Stabilization For the Purpose of:: To decrease pain, To increase ROM, To improve muscle performance and motor function, To increase tolerance to activity/condition/position Thank you for the opportunity to evaluate your patient. For Medicare and Medicare HMO plans, please review the plan of care and approve it. It will need to be FAXED BACK to us at [phone] for Medicare purposes. For Medicare only, by signing this I certify the plan of care. Please let me know if there are questions or concerns regarding this plan of care. Physician Signature: Date:
--- NOTE | 2022-03-25 12:04 | HP.PT.NRP ---
STEPHANE REYES was seen in my office for initial evaluation on 01/08/22. The following Plan of Care was established for this patient: Initial Frequency: 2x /Week Initial Duration: 4-6 Weeks Patient/Client Instruction: Educate patient on: Condition, Plan of Care For the Purpose of:: To decrease pain, To increase ROM, To improve muscle performance and motor function, To increase tolerance to activity/condition/position Therapeutic Exercise to Include: Strength training, Flexibilty training, Passive ROM, Active ROM, Scapular Strength/Stabilization For the Purpose of:: To decrease pain, To increase ROM, To improve muscle performance and motor function, To increase tolerance to activity/condition/position This patient was last seen in our office 02/05/22. Pertinent comments regarding their Physical therapy will appear below: Pt seen 3 visits and did not show up fro her final two including her recheck. At this point, it has been over 6 weeks and I will discontinue her from my care due to nonattendance. At this point I will be discontinuing this patient from physical therapy. I would be happy to see this patient again in the future if found appropriate by the physician. Thank you! Yoni Samuel, DPT, OCS, CSCS Balance/Gait/Functional tests - Balance/Special Test Scores Quick DASH Score: [phone]
== END 2022-02-05 19:00 | disposition home or self-care (01) ==
LOC: PT 15:00
PROVIDERS: PCP Family Medicine
DX: S42.001D Fracture of unspecified part of right clavicle, subsequent encounter for fracture with routine healing (principal)
CPT/HCPCS: 97110; 97161

== ENCOUNTER → 2022-02-05 | Outpatient (CLI) | payer MEDICARE, OTHER, SELFPAY ==
--- NOTE | 2022-02-05 14:36 | ST.MBS ---
Modified Barium Swallow - Patient Information Study Date: 02/05/22 Study Time: 13:00 Direct Billable Minutes: 85 Total Minutes procedure & reportin Diagnosis: Esophageal phase dysphagia (R13.19), Epilepsy (G40.909) Referring Physician: Raoul June Reason for Referral: Objectively assess swallow function, risk for aspiration, and determine recommendations for least restrictive diet textures and compensatory strategies to improve safety of swallow. Medical History: The patient is a 56-year-old female with PMH including epilepsy, esophageal dysphagia, CVA (1993), blood clot (1996), GERD, and PNA (~2 years ago), hx of hiatal hernia. When asked by SALES ORDER COORDINATOR about history of head injury, she stated she has hit her head falling to the floor at least 5X in the past. The patient reports that certain foods feel caught in the base of her throat. She attempts to clear sensation, but only expectorates saliva. This sensation occurs mostly with large bites of solid textures (~2X/week) and at nighttime (every night). She admits to eating with a fast rate. She also states she has more difficulty if she is talking during a meal. She will at times experience hard coughing episodes in response to sensation of food caught in her throat. She choked 1X as a child (age 5) and required the Heimlich per pt report. Current Diet Ordered: Regular textures / Thin liquids Dentition: WNL Mental Status: WNL Respiratory Status: Oxygenating on Room Air - Penetration-Aspiration Scale Penetration-Aspiration Scale: OBJECTIVE ASSESSMENT OF SWALLOW FUNCTION (QUANTITATIVE ? PER TRIAL): PENETRATION / ASPIRATION SCALE (ARCE): 1 = does not enter airway 2 = enters airway/above vocal folds/ejected 3 = enters airway/above vocal folds/not ejected 4 = enters airway/contacts vocal folds/ejected 5 = enters airway/contacts vocal folds/not ejected 6 = enters airway/below vocal folds/ejected 7 = enters airway/below vocal folds/not ejected despite effort 8 = enters airway/below vocal folds/no effort VIDEOFLOROSCOPIC SCALE SCORE (ARCE): Grade I = aspiration of material that has penetrated into the laryngeal vestibule, intact cough reflex Grade II = aspiration < 10 % of the bolus, intact cough reflex Grade III = aspiration of < 10 % of the bolus, reduced cough reflex or aspiration of > 10 % of the bolus, intact cough reflex Grade IV = aspiration of > 10 % of the bolus, reduced cough reflex - Penetration-Aspiration Scale Score Thin Liquid via teaspoon Result: 1= does not enter airway Thin Liquid via teaspoon Trial 2 Comment: Could not score as the patient had completed most of the swallow prior to fluoroscopy turning on - laryngeal vestibule clear after the bolus had passed through the pharynx. Thin Liquid via teaspoon Trial 3 Result: 1= does not enter airway Thin Liquid via small single sip from cup Result: 2= enter airway/above vocal folds/ejected Thin Liquid via sequential sips from cup Result: 1= does not enter airway [place] Thick Liquid via small single sip from cup Result: 1= does not enter airway Honey Thick Liquid via small single sip from cup Result: 1= does not enter airway Pudding via teaspoon with esophageal screen Result: 1= does not enter airway Thin Liquid via small single sip from cup Trial 2 Comment: Could not complete PAS score as trial was utilized while viewing esophagus. This trial effectively cleared mild retention of pudding in lower esophagus. Whole Rea Doone Cookie Result: 1= does not enter airway Thin Liquid via single sip from straw Result: 1= does not enter airway Barium Tablet with water and esophageal screen Result: 1= does not enter airway - Oral Phase Labial Seal: No Labial Escape Tongue Control During Bolus Hold: Posterior escape of less than half of bolus Bolus Preparation/Mastication: Timely and efficient chewing and mashing Bolus Transport/Lingual Motion: Delayed initiation of tongue motion Oral Residue: Residue collection on oral structures - small collection of cookie on back of tongue after the first swallow - Pharyngeal Phase Initiation of Pharyngeal Swallow: Bolus head in pyriforms Soft Palate Elevation: No bolus between soft palate and pharyngeal wall Laryngeal Elevation: Partial superior movement thyroid cart/partial apprx aryt-epig petiole Anterior Hyoid Excursion: Partial anterior movement Epiglottic Movement: Complete inversion Laryngeal Vestibule Closure at Height of Swallow: Incomplete; narrow column of air/contrast in laryngeal vestibule - trace laryngeal penetration on thin by cup Pharyngeal Stripping Wave: Present - complete Pharyngoesophageal Segment Opening: Complete distension and complete duration; no obstruction of flow Tongue Base Retraction: Trace column of contrast between tongue base & post. pharyngeal wall Pharyngeal Residue: Trace residue within or on pharyngeal structures - Esophageal Phase Esophageal Clearance: Esophageal retention w/ retrograde flow below pharyngoesophageal seg. - Treatment Strategies Effects of treatment strategies attemped:: Liquid wash = Effective in clearing mild esophageal retention. - Diagnosis/Impression Diagnosis: Oropharyngeal swallow function grossly WNL Impression: The patient presents with overall oropharyngeal swallow function WNL. She does present with mild delay initiating the swallow with various liquids trials in the pyriforms prior to swallow onset. Mildly decreased laryngeal elevation and anterior hyoid excursion; however, the patient maintained excellent airway closure throughout the trials. She demonstrated trace laryngeal penetration following 1 trial of thin liquids by cup that fully ejected from the laryngeal vestibule during the swallow. No aspiration observed during the study. Trace pharyngeal residues, despite the patient reporting sensation of significant pharyngeal retention of pudding trial. SALES ORDER COORDINATOR suspects the patient's sensation of food/phlegm caught in throat is a symptom of GERD. Mild esophageal retention of pudding bolus in the lower esophagus with min retrograde flow remaining in the lower esophagus. Trialed liquid wash with thin liquid by cup, which effectively cleared mild retention of pudding. Barium tablet consumed with water and demonstrated timely esophageal clearance. - Recommendations Diet: Regular Textures, Thin Liquids Compensatory Strategies: Small Bites, Small Sips, Slow Rate, Alternate bites/solids and sips/liquids - to clear mild esophageal retention, Sitting upright, Remain sitting upright for 30 minutes after PO intake, Minimize/decrease distractions - Limit speaking when eating/drinking. Recommend Repeat Modified Barium Swallow: No Need for Skilled Speech Therapy Services: No Recommended Referrals: GI Consult - Continue to follow with candy packer. SALES ORDER COORDINATOR suspects the patient is experiencing globus sensation due to hx of GERD. Education Completed: 1. Described result of evaluation., 5. Patient demonstrates recommended strategies. Comment: Thorough education provided via discussion, review of images, and written handout re: results of the study, as well as, recommended aspiration and reflux precautions. SALES ORDER COORDINATOR provided additional reflux education, including identifying which foods/drinks to avoid, increasing hydration, decreasing stress as able, avoiding eating prior to bed, and considering use of a bed wedge to sleep. Education well received, and the patient verbalized good understanding. - Status Active ST Patient: Active - Contact Information [facility] Speech Therapy:: Michelle Mendez M.A. CCC-SALES ORDER COORDINATOR Speech-Language Pathologist [facility] [address] [place] [address] [email or web address] [phone] 02/05/22 14:45
== END | disposition home or self-care (01) ==
LOC: RAD 12:53
PROVIDERS: PCP Family Medicine; Referring Provider Internal Medicine Gastroenterology; Visit Provider Internal Medicine Gastroenterology
DX: R13.19 Other dysphagia (principal)
CPT/HCPCS: 74230; 92611

== ENCOUNTER → 2022-03-06 | Outpatient (CLI) | payer MEDICARE, OTHER, SELFPAY | END | disposition home or self-care (01) | PROVIDERS: PCP Family Medicine; Visit Provider Family Medicine | DX: R30.0 Dysuria (principal) | CPT/HCPCS: 87086 ==

== ENCOUNTER → 2022-03-12 | Outpatient (CLI) | payer MEDICARE, OTHER, SELFPAY | END | disposition home or self-care (01) | LOC: MTLAB 16:38 | PROVIDERS: PCP Family Medicine; Referring Provider Psychiatry & Neurology Neurology; Visit Provider Psychiatry & Neurology Neurology | DX: M25.50 Pain in unspecified joint (principal) | CPT/HCPCS: 36415; 86431 ==

== ENCOUNTER → 2022-03-14 | Outpatient (CLI) | payer MEDICARE, OTHER, SELFPAY ==
--- NOTE | 2022-03-14 18:47 | CT_ITS ---
INDICATION: abd pain -- multiphase liver EXAMINATION: CT Abdomen And Pelvis WO/W Contrast Injection TECHNIQUE: Helically acquired images were obtained of the abdomen and pelvis after IV contrast. A radiation dose optimization technique was used for this scan. IV Contrast dosage and agent: IV 100mL Isovue-300 Oral contrast: None. COMPARISON: 12/01/2020. 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 Gallbladder: Surgically absent. Spleen: The spleen is mildly enlarged. Pancreas: Unremarkable Adrenal Glands: Unremarkable Kidneys: Unremarkable Vasculature: Unremarkable GI Tract: Scattered diverticula throughout the colon without evidence of inflammation. Lymphadenopathy: None Peritoneum: No ascites. Bladder: Unremarkable Reproductive organs: Unremarkable Bones/Soft tissues: Mild scattered degenerative changes of the visualized spine. CT/CT Abd/Pelvis W/WO Contrast IMPRESSION: No acute abnormalities in the abdomen or pelvis. Normal appearing transplanted liver without suspicious mass. Diverticulosis. Stable mild splenomegaly. Electronically Signed: Negro Castro MD at 0:58 EDT ,
== END | disposition home or self-care (01) ==
LOC: CT 19:18
PROVIDERS: PCP Family Medicine; Visit Provider Internal Medicine Gastroenterology
DX: R10.9 Unspecified abdominal pain (principal)
CPT/HCPCS: 74178; Q9967

== ENCOUNTER → 2022-03-19 | Outpatient (CLI) | payer MEDICARE, OTHER, SELFPAY ==
--- NOTE | 2022-03-19 13:48 | ECHOD_ITS ---
Reason For Study: CHF Procedure This was a 2D Doppler, Color Flow transthoracic echocardiogram. Exam performed in department. Left Ventricle Normal LV size. Left ventricular systolic function is normal. The estimated ejection fraction is 65 %. Stage 1 diastolic dysfunction. No regional wall motion abnormalities noted. Right Ventricle Normal RV size. Normal systolic function. Atria Normal left atrium. Normal right atrium. Mitral Valve Normal mitral valve. Tricuspid Valve Normal tricuspid valve. Mild tricuspid valve insufficiency. Aortic Valve Normal aortic valve. Trisinus/trileaflet aortic valve. Pulmonic Valve Normal pulmonic valve. Great Vessels Normal aortic root. The pulmonary artery is normal size. Normal inferior vena cava. Pericardium/Pleural No pericardial effusion. MMode/2D Measurements & Calculations LVIDd: 4.1 cm IVSd: 1.1 cm Ao root diam: 3.5 cm LVIDs: 2.8 cm LVPWd: 1.4 cm FS: 31.3 % LAV(MOD-sp4): 39.3 ml LVAd ap4: 19.8 cm2 SV(MOD-sp4): 31.2 ml LVLd ap4: 6.7 cm EDV(MOD-sp4): 47.0 ml EDV(sp4-el): 49.5 ml LVAs ap4: 9.7 cm2 LVLs ap4: 5.9 cm ESV(MOD-sp4): 15.8 ml ESV(sp4-el): 13.6 ml EF(MOD-sp4): 66.5 % EF(sp4-el): 72.5 % SV(sp4-el): 35.9 ml LA A4 area: 15.3 cm2 LA dimension(2D): 3.1 cm RA A4 area: 9.4 cm2 Time Measurements MV dec time: 0.19 sec Doppler Measurements & Calculations MV E max finesse: 66.9 cm/sec Lat Peak E' Finesse: 10.2 cm/sec Med Peak E' Finesse: 7.5 cm/sec MV A max finesse: 93.5 cm/sec E/E' lat: 6.6 E/E' med: 8.9 MV E/A: 0.72 MV V2 max: 86.3 cm/sec Ao V2 max: 140.0 cm/sec MV max P.0 mmHg MV dec slope: 366.4 cm/sec2 Ao max P.9 mmHg MV V2 mean: 61.8 cm/sec Ao V2 mean: 102.9 cm/sec MV mean P.6 mmHg Ao mean P.7 mmHg MV V2 VTI: 20.9 cm Ao V2 VTI: 30.7 cm LV V1 max: 135.3 cm/sec PA V2 max: 81.8 cm/sec TR max finesse: 217.5 cm/sec LV V1 max P.3 mmHg PA V2 mean: 67.4 cm/sec TR max P.9 mmHg LV V1 mean P.9 mmHg LV V1 mean: 93.1 cm/sec LV V1 VTI: 29.8 cm ECHO/Echo Complete Interpretation Summary Normal LV size. Left ventricular systolic function is normal. The estimated ejection fraction is 65 %. Stage 1 diastolic dysfunction. Structurally normal valves. Ordering Physician: Raoul June Referring Physician: Raoul June Performed By: Tonie Lo RCS
== END | disposition home or self-care (01) ==
LOC: CVS 13:48
PROVIDERS: PCP Family Medicine; Referring Provider Internal Medicine Gastroenterology; Visit Provider Internal Medicine Gastroenterology
DX: Z79.899 Other long term (current) drug therapy (principal)
CPT/HCPCS: 93306

== ENCOUNTER 2022-06-11 15:02 | Outpatient (CLI) | payer MEDICARE, OTHER, SELFPAY ==
--- NOTE | 2022-06-11 15:05 | MRI_ITS ---
STUDY: MRI OF THE LUMBAR SPINE WITHOUT CONTRAST REASON FOR EXAM: 57 years old Female Constant LBP, hip and pelvic pain, sciatica. TECHNIQUE: Multiplanar, multisequence magnetic resonance imaging of the lumbar spine was performed without contrast. COMPARISON: None. FINDINGS: Mild chronic wedging of superior endplates of L1 and L2. The conus terminates normally at the L1-L2 vertebral level. There is no abnormal compression or signal intensity of the visualized distal spinal cord. The nerve roots of the cauda equina are normal in thickness, distribution, and signal intensity. No epidural hematoma or other extra-axial lumbar spinal canal fluid collection is seen. The lumbar alignment is normal. The lumbar vertebral bodies are normal in height without compression fractures. The bone marrow signal intensity is within normal limits. The lumbar intervertebral discs are normal in height and signal intensity. T12-L1: The disc is normal. The facet joints are normal. No central canal or neural foramina stenosis at this level. L1-L2: The disc is normal. The facet joints are normal. No central canal or neural foramina stenosis at this level. L2-L3: Grade 1 retrolisthesis. Narrowed disc space with minor bulging disc osteophyte complex The facet joints are normal. Normal central canal and bilateral lateral recesses. Moderate bilateral neural foraminal stenosis exaggerated by shortened pedicles L3-L4: Normal disc space with desiccation of disc and minimal annular bulge. Mild facet arthropathy.. No central canal or neural foramina stenosis at this level. L4-L5: Normal disc space with desiccation of the disc and minimal annular bulge.. Facet arthropathy and thickening of ligamenta flava.. Normal central canal and bilateral lateral recesses. Moderate bilateral neural foraminal stenosis exaggerated by shortened pedicles L5-S1: Normal disc space with desiccation of disc and mild annular bulge with mild right posterolateral annular tear and tiny central disc extrusion with superior migration of disc fragment. Facet arthropathy and thickening of ligamenta flava. Normal central canal and bilateral lateral recesses. Moderate bilateral neural foraminal stenosis The visualized lumbar prevertebral and paraspinal soft tissues are unremarkable. There is no evidence of abdominal aortic aneurysm or pathologic retroperitoneal lymphadenopathy. MRI/Spine Lumbar (Routine) IMPRESSION: No evidence for acute fracture or other significant bony pathology. Spondylosis and multilevel spinal stenosis secondary to disc disease and facet arthropathy. Findings as above. Electronically Signed: Jayson Gonzalez MD at 21:18 EST ,
== END 2022-06-11 23:59 | disposition home or self-care (01) ==
PROVIDERS: PCP Family Medicine; Referring Provider Psychiatry & Neurology Neurology; Visit Provider Psychiatry & Neurology Neurology
DX: M54.50 Low back pain, unspecified (principal); Z94.4 Liver transplant status; M54.16 Radiculopathy, lumbar region; Z51.81 Encounter for therapeutic drug level monitoring; Z79.899 Other long term (current) drug therapy
CPT/HCPCS: 36415; 72148; 80069; 80197; 82247; 82248; 84075; 84156; 84450; 84460; 85025

== ENCOUNTER 2022-06-11 15:10 | Outpatient (RCR) | payer MEDICARE, OTHER, SELFPAY ==
[2022-06-11 16:52] LABS: Absolute Lymphocyte Count 2.12 X10^3/uL (0.83-4.51); Absolute Neutrophil Count 5.6 X10^3/uL (2.0-7.7); Basophil# 0.03 X10^3/uL; Basophil% 0.4 % (0-1); Eosinophil# 0.12 X10^3/uL; Eosinophils% 1.4 % (0-5); Hematocrit 40.9 % (37-47); Hemoglobin 13.7 g/dL (12.0-15.0); Lymphocyte # 2.12 X10^3/ul (0.83-4.51); Lymphocyte % 24.8 % (19-41); Mean Corp Hgb Conc 33.5 g/dL (32-36); Mean Corpuscular Hgb 25.9 pg (27.0-32.0); Mean Corpuscular Volume 77.5 fL (81-99); Mean Platelet Vol. 9.5 fl (6.2-12.0); Monocyte# 0.63 X10^3/uL; Monocyte% 7.4 % (0-10); NRBC Flagged by Analyzer 0 % (0-5); Neutrophil # 5.63 X10^3/uL (2.7-7.7); Neutrophil % 65.6 % (47-70); Platelet Count 120 K/mm3 (150-450); RBC Distribution Width CV 13.6 % (11.6-14.6); RBC Distribution Width SD 37.9 fl (35.1-43.9); Red Blood Count 5.28 M/mm3 (4.2-5.4); White Blood Count 8.6 K/mm3 (4.4-11.0)
[2022-06-11 18:52] LABS: ALB/GLOB Ratio 0.9 RATIO (0.9-2.4); AST(SGOT) 11 U/L (15-37); Alanine Aminotransfer ALT/SGPT 15 U/L (13-56); Albumin, Serum 3.6 g/dL (3.2-5.0); Alkaline Phosphatase 127 U/L (45-117); BUN 7 mg/dL (7-18); BUN/Creat Ratio 8.4 RATIO (10-20); Bilirubin, Direct 0.15 mg/dL (0.00-0.30); Chloride 101 mmol/L (98-107); Creatinine, Serum 0.83 mg/dL (0.55-1.02); EST Glomerular Filtration Rate 76 mL/min (>60); Est Glom Filt Rate - Afr Amer 91 mL/min (>60); Glucose 270 mg/dL (74-106); Phosphorus 3.2 mg/dL (2.5-4.9); Potassium 3.8 mmol/L (3.5-5.1); Protein, Total 7.6 g/dL (6.4-8.2); Sodium Level 135 mmol/L (136-145)
[2022-06-14 19:02] LABS: Tacrolimus (FK506) 7.4 ng/mL (2.0-20.0)
== END 2022-06-11 18:00 | disposition home or self-care (01) ==
LOC: LAB 15:10
PROVIDERS: PCP Family Medicine
DX: Z51.81 Encounter for therapeutic drug level monitoring; Z79.899 Other long term (current) drug therapy; Z94.4 Liver transplant status
CPT/HCPCS: 36415; 80069; 80197; 82247; 82248; 84075; 84156; 84450; 84460; 85025

== ENCOUNTER → 2022-06-19 | Outpatient (CLI) | payer MEDICARE, OTHER, SELFPAY ==
--- NOTE | 2022-06-19 10:00 | RAD_ITS ---
STUDY: X-RAY CHEST REASON FOR EXAM: Female, 57 years old. Cough. Asthma. TECHNIQUE: Frontal and lateral views of the chest. COMPARISON: November 21, 2021. FINDINGS: The lungs are clear and expanded. There is no demonstrated pleural abnormality. Normal size heart. Normal mediastinum and erin. Normal visualized pulmonary arteries. Normal visualized aortic arch and descending thoracic aorta. Normal visualized thoracic spine. Normal visualized ribs, clavicles, and shoulders. Stable clips projected over the right upper medial abdomen. RAD/Chest PA and Lateral IMPRESSION: No interval change and no acute or active cardiopulmonary disease. Electronically Signed: Pawan Carcamo, at 10:21 EST ,
[2022-06-19 10:46] LABS: Anion Gap 4 (5-15); BUN 8 mg/dL (7-18); BUN/Creat Ratio 10.1 RATIO (10-20); Calcium,Total 8.8 mg/dL (8.5-10.1); Chloride 105 mmol/L (98-107); Creatinine, Serum 0.79 mg/dL (0.55-1.02); EST Glomerular Filtration Rate 80 mL/min (>60); Est Glom Filt Rate - Afr Amer 97 mL/min (>60); Glucose 218 mg/dL (74-106); Potassium 3.7 mmol/L (3.5-5.1); Sodium Level 137 mmol/L (136-145)
== END | disposition home or self-care (01) ==
LOC: LAB 09:48
PROVIDERS: PCP Family Medicine; Visit Provider Family Medicine
DX: E87.1 Hypo-osmolality and hyponatremia (principal); R05.9 Cough, unspecified
CPT/HCPCS: 36415; 71046; 80048

== ENCOUNTER 2022-07-10 14:00 | Outpatient (RCR) | payer MEDICARE, OTHER, SELFPAY ==
--- NOTE | 2022-07-03 17:05 | HP.PTEVAL ---
Patient's Visit Information STEPHANE REYES is a 57 year old F referred to Physical Therapy by Dr. Kedar Bunch MD with a diagnosis of LBP. Date of Evaluation: 07/03/22 Physical Therapist: Yoni Samuel, DPT, OCS, CSCS - Visit Plan Frequency: 2x /Week Duration: 4-6 Weeks Plan: 2x/week for 4-6 weeks as needed for. 1. pool instruct in LB ext and flexion ROM, psoas and quad stretch adn core adn general strength to I for Silver sneakers. 2. then progress to gym based program of the same to tolerance. Emphasize NS position. - Subjective LBP for years and not sure why. Has seen Basali for upper back pain due to fracture in past and she takes CBD oil. LBP is worse since fall in November and broke ribs. has FM and stress. Wants to be stronger for OP and OA. Pain is in LB and into upper buttocks, sometimes around pelvis and achy hips. Pain up to 7/10 this week most days. In May could not due to LBP. Sleep is not great and LB keeps her up, takes a muscle relaxer which helps. Not in pain management anymore due to high risk for addiction. Sees neurologist due to seizures and LBP. Not employed, looking. Spends day packing house to get out from divorce. Enjoys writing and playing with dogs. Back pain effects all of these. No regular exercises, may do Silver sneakers. Has psychologist and is bipolar. - Pain LBP Pain Intensity (Out of 10): 7 Pain Intensity Range: 4, 7 - Objective Walks slowly but I back to PT, mosying. Trasnfers I. Good balance. LE AROM WFL ankles and knees. strength 4- at knees and 4 at ankles without myotomal problems. hip strength flexion 4+, rotation 3+, abd and extension 3+, no pain. quads and psoas mod tight and HS min tight. - slump and - SLR. reflexes 2/3 patella and achilles. core strength 3/5 and lots of slop in hips with resisted testing. Lumbar ROM extension mod limited and painful centrally, flexion tight and mod limited, SB min limited. Posture is forward head and protracted scap. Not overly tender in posterior hips or LB paraspinals. PA pressure does give some pain in lower lumbar area. - Balance/Special Test Scores Oswestry Low Back Score: 40 - Goals Goal 1:: i appropriate pool and gym exercises to improve strength adn function without increasing pain Goal Time Frame: 4-6 Weeks Goal 2:: Pain LB 0-2/10 at allt imes and 75% improved. Goal Time Frame: 4-6 Weeks Goal 3:: oswestry score 10 or less Goal Time Frame: 4-6 Weeks - Rehabilitation Potential Physical Therapy Diagnosis: Poorly managed degenerativ e changes in LB combined with FM Rehabilitation Potential: Questionable - Anticipated Interventions Patient/Client Instruction: Educate patient on: Condition, Plan of Care For the Purpose of:: To decrease pain, To decrease swelling/inflammation, To improve nutrient delivery to tissue, To improve muscle performance and motor function, To increase tolerance to activity/condition/position Therapeutic Exercise to Include: Strength training, Postural training, Flexibilty training, Gait and locomotor training, In an aquatic setting, Passive ROM, Active ROM, Dynamic Lumbar Stabilization For the Purpose of:: To decrease pain, To increase ROM, To improve nutrient delivery to tissue, To improve muscle performance and motor function, To increase tolerance to activity/condition/position, To improve ability of physical actions for home/community/work/leisure Thank you for the opportunity to evaluate your patient. For Medicare and Medicare HMO plans, please review the plan of care and approve it. It will need to be FAXED BACK to us at [phone] for Medicare purposes. For Medicare only, by signing this I certify the plan of care. Please let me know if there are questions or concerns regarding this plan of care. Physician Signature: Date:
--- NOTE | 2022-08-26 08:18 | HP.PT.NRP ---
STEPHANE CABALLERO was seen in my office for initial evaluation on 07/03/22. The following Plan of Care was established for this patient: Initial Frequency: 2x /Week Initial Duration: 4-6 Weeks Patient/Client Instruction: Educate patient on: Condition, Plan of Care For the Purpose of:: To decrease pain, To decrease swelling/inflammation, To improve nutrient delivery to tissue, To improve muscle performance and motor function, To increase tolerance to activity/condition/position Therapeutic Exercise to Include: Strength training, Postural training, Flexibilty training, Gait and locomotor training, In an aquatic setting, Passive ROM, Active ROM, Dynamic Lumbar Stabilization For the Purpose of:: To decrease pain, To increase ROM, To improve nutrient delivery to tissue, To improve muscle performance and motor function, To increase tolerance to activity/condition/position, To improve ability of physical actions for home/community/work/leisure This patient was last seen in our office 07/10/22. Pertinent comments regarding their Physical therapy will appear below: Pt seen 3 visits of [place] POC and then cancelled and no showed last couple visits without rescheduling. At this point, it has been over 4 weeks and i will discontinue due to non attendance. At this point I will be discontinuing this patient from physical therapy. I would be happy to see this patient again in the future if found appropriate by the physician. Thank you! Yoni Samuel, DPT, OCS, CSCS Balance/Gait/Functional tests - Balance/Special Test Scores Oswestry Low Back Score: 40
== END 2022-07-10 19:00 | disposition home or self-care (01) ==
LOC: PT 14:00
PROVIDERS: PCP Family Medicine; Referring Provider Psychiatry & Neurology Neurology; Visit Provider Psychiatry & Neurology Neurology
DX: M54.50 Low back pain, unspecified (principal)
CPT/HCPCS: 97113; 97162

== ENCOUNTER 2022-08-14 11:09 | Day surgery (SDC) | payer MEDICARE, SELFPAY ==
--- NOTE | 2022-08-14 | GASB_PTH ---
PATIENT: STEPHANE CABALLERO LOC: EN U#:[id number] AGE/SX: 57/F ROOM: RE08/14/[address]: Dr. Raoul June DO : 1965 BED: DIS: 08/14/2022 SPEC #: [id number] RECD: 08/14/22 14:02 STATUS: HINA ADAM #: [id number] RISHI: 08/14/22 00:[address]: Raoul June DEPT: SURGICAL PATHOLOGY RECD BY: Dayo Bowen ENTERED: 08/14/22 14:02 SP TYPE: Gastric Bx OTHR DR: Dr. Geeta Odell MD Tissues: A - Gastric mucous membrane B - Esophageal mucous membrane Procedures: Special Stain Group II Surgery Specimen Level IV Alcian Blue/PAS (control) HEADER OPERATION: EGD ([facility] [place]) with biopsies PRE-OP DIAGNOSIS: Cirrhosis, bloating, leg swelling TISSUE SUBMITTED: A ? Ulcer of gastric antrum biopsy for H. pylori and path, B ? Distal esophagus biopsy MICROSCOPIC DIAGNOSIS A. Gastric antrum ulcer, biopsy: Fragments of gastric mucosa with superficial ulceration and acute and chronic inflammation. See comment. B. Distal esophagus, biopsy: Fragments of gastroesophageal mucosa with chronic inflammation. Intestinal metaplasia (goblet cell metaplasia) is not identified. See comment. SJ:rg 08/15/2022 COMMENT A. The results of immunohistochemistry for Helicobacter pylori will be reported separately ([id number]). B. Alcian blue/PAS stain with matched control is used in the evaluation of the specimen. MICROSCOPIC DESCRIPTION Slides are reviewed. GROSS DESCRIPTION A - Received in fixative is one container labeled with the patient's name and designated antrum biopsy. The specimen consists of two irregular fragments of light artis soft tissue that in aggregate measure 0.6 x 0.3 x 0.1 cm. The specimen is totally submitted in one cassette. B - Received in fixative is one container labeled with the patient's name and designated distal esophagus biopsy. The specimen consists of multiple irregular fragments of light artis soft tissue that in aggregate measure 2.0 x 0.5 x 0.1 cm. The specimen is totally submitted in one cassette. / TOYIN:kristy 08/14/2022 TC:3 CPT: 80614 x2, 48699
[2022-08-14] MEDS: Lactated Ringers 1,000 ML 15 ML IV (11:43)
[2022-08-14 11:44] VITALS: BP 149/85; PULSE 85; RESP 18; TEMP 36.6; O2SAT 97; BMI 25.5
[2022-08-14 11:56] LABS: Bedside Glucose 147 mg/dL (74-106)
--- NOTE | 2022-08-14 12:13 | PCM.HP.BLA ---
History and Physical Date of Admission: 08/14/22 ?56 F who presents to the office today for Follow up visit. Jazmin established with this clinic 06.07.21 for positive Cologuard test.? Additional history of epilepsy (follows neurology), migraine (neurology), restless leg (neurology), memory loss (neurology), esophageal varices with history of multiple banding, C.Diff, pseudoseizure, fibromyalgia, MARMOLEJO stage IV s/p liver transplant on 05.16.18.? ? CT abd/pel performed 12.01.20 with appearance of normal transplanted liver with numerable surgical clips in clare hepatis region. Mildly enlarged spleen but stable compared to 04.20.2020 imaging.? ? Colonoscopy performed 06.21.21 finding diverticulosis in recto-sigmoid colon and sigmoid colon. One 5mm tubular adenoma polyp removed from cecum.? ? EGD 11.27.21 finding moderate Schatzki ring, Savary dilator 36F; distal esophagitis without metaplasia; gastritis; non-bleeding gastric ulcer without bleeding stigmata, focal ulceration with acute and chronic inflammation. H.Pylori negative.? ? Plan from last visit 07.06.21:? Esophageal dysphagia ? Recommend EGD, nystatin swish and swallow for possible esophageal candidiasis, gastric emptying study. Continue PPI therapy.? Cirrhosis ? sees docent coordinator in [place] and is doing well without itching, ascites, dark urine, recent infections.? ? Jazmin was scheduled for EGD 08.27.21 but did not attend the appointment. Rescheduled for 11.27.21? Anxiety and stress have increased in her life and this has caused an increase of nausea and stomach upset. ? ? Jazmin called 01.14.22 to report that she was having increased difficulty swallowing. Barium swallow study ordered.? Patient states that she continues to have difficulty swallowing and clears throat frequently. Glucose has increased and she is taking Basaglar insulin daily that has brought it back to normal. Patient states that she has gained 8 pounds in 2 days. Patient states that she has increased urination and is urinating 10-15 times a day. She also has had loose stools recently. ROS Const Constitutional: Positive for headache(s) and weight change; No fatigue, fever(s) or frequent falls ENT ENT: Positive for headache(s) and difficulty swallowing Cardio Cardiology: Positive for leg pain with exertion Gastro GI: Positive for abdominal pain, bloating, change in bowel habits, diarrhea, heartburn, difficulty swallowing and nausea/dyspepsia; No constipation, Vomiting blood/hematemesis, Blood in stool or vomiting Musc Musculoskeletal: Positive for joint pain, back pain, joint swelling, muscle cramps, stiffness, Arthritis, sciatica, restless legs, leg pain at night and leg pain with exertion; No abnormal gait, muscle weakness, numbness or tingling Skin Skin: Positive for dry skin and itchy eyes; No lesions or rash Neuro Neurology: Positive for headache(s) and restless legs; No abnormal gait, dizziness, frequent falls, numbness, tingling, tremor(s), Increased tone in limbs, paralysis or seizures Psych Psychiatric: Positive for anxiety, Positive for depression, No paranoia, No Behavioral Problems, Positive for Compulsive Behavior, No hyperactivity, No inattentiveness, Positive for obsessions/compulsions, Positive for Temper Tantrums and No suicidal ideation Endo Endocrine: Positive for weight change; No fatigue Aller/Imm Allergy/Immunologic: Positive for itchy eyes Ron/Lymp Hematologic/Lymphatic: Positive for easy bruising; No easy bleeding Exam Const General: cooperative and comfortable Nutritional Appearance: average body habitus and well nourished [facility] Head: normal to inspection Ears: hearing grossly normal bilaterally Nose: external nose normal Face and sinus: normal facial exam Mouth: oral mucosae normal Throat: posterior oropharynx normal Eyes General: appearance normal, both eyes and all related structures Neck Neck: normal visual inspection Chest Chest palpation & inspection: normal inspection of the chest and normal palpation of entire chest wall Resp Effort & Inspection: normal respiratory effort Auscultation: Bilateral: Clear to Auscultation Cardio Palpation: normal PMI Rate: regular rate Rhythm: regular rhythm GI Inspection: normal to inspection Auscultation: normal bowel sounds Percussion: normal to percussion Palpation: no hepatosplenomegaly Skin General: no rashes or lesions noted Neuro General: patient alert Extrem General: normal to inspection Psych Affect: normal affect Quality Reporting Tobacco Screening ([facility] 138) Smoking Status: Never smoker Assessment and Plan Assessment and Plan (1) Cirrhosis: ?Status:?Acute ?Plan: ?Plan: Marmolejo cirrhosis status post orthotopic liver transplant on immunosuppression.? We will need to get tacrolimus levels.? She is not having any side effects and her liver function tests and LFTs have remained stable (2) Bloating: ?Status:?Acute ?Plan: She has not shown any signs of decompensated liver disease. She does hve a Mildly elevated alkaline phosphatase.? We will get imaging of her abdomen? and pelvis (3) Leg swelling: ?Status:?Acute ?Plan: We will get an echo and possibly a stress test due to her? Strong family history of cardiovascular disease. ? ? ? Orders: Orders CT ANGIO ABD&PEL W/O&W/DYE Today Z53.9 - Procedure and treatment not carried out, unspecified reason ? Echo Complete Today Z79.899 - Other intermodal customer service (current) drug therapy ? Medications: New fluconazole 100 mg? PO DAILY 14 tabs 0RF ? ? I have examined the patient and the H&P has been reviewed. There are no clinical changes since date of exam.
--- NOTE | 2022-08-14 12:15 | IMM_PTH ---
PATIENT: STEPHANE CABALLERO LOC: EN U#:[id number] AGE/SX: 57/F ROOM: RE08/14/[address]: Dr. Raoul June DO : 1965 BED: DIS: 08/14/2022 SPEC #: [id number] RECD: 08/14/22 14:33 STATUS: HINA REQ #: [id number] RISHI: 08/14/22 12:[address]: Raoul June DEPT: IMMUNOHISTOCHEMISTRY RECD BY: Vesna Delgado ENTERED: 08/14/22 14:33 SP TYPE: IMMUNO OTHR DR: Dr. Geeta Odell MD Tissues: A - Stomach, NOS Procedures: H Pylori (initial) PHYSICIAN & INSTITUTION [place] [id number] SPECIMEN INFORMATION: Tissue Source: A ? Gastric antrum ulcer Clinical Info: Cirrhosis, bloating, leg swelling Specimen Number: [id number] CPT code: 32371 METHODOLOGY: Deparaffinized sections of prefer/formalin-fixed tissue or PAP/DQ stained slides are incubated with monoclonal/polyclonal antibodies/oligonucleotide probes. Localization is made via biotin free immunoperoxidase method. Appropriate controls are performed and reacted as expected. Results on target cell population are indicated in the following table: RESULTS: ANTIBODY / CLONE RESULT Block A H Pylori (polyclonal) negative These tests were developed and their performance characteristics determined by [facility]. They may not have been cleared or approved by the U.S. Food and Drug Administration. The FDA has determined that such clearance or approval is not necessary. The above immunohistochemical/dualISH markers are ordered and reviewed by the Pathologist. INTERPRETATION: A. Gastric antrum ulcer, biopsy: Negative for Helicobacter pylori organisms. TOYIN:kristy 08/15/2022
[2022-08-14 12:35] VITALS: BP 138/80; BP 149/85; PULSE 89; RESP 16; TEMP 37; O2SAT 97
--- NOTE | 2022-08-14 12:37 | OP.EGD_ITS ---
Patient Name: Jazmin Yo Procedure Date: 08/14/2022 12:08 PM Date of : 1965 Age: 57 Procedure: Upper GI endoscopy Indications: Dysphagia, Peptic ulcer Providers: Raoul June DO Referring MD: Geeta Odell Medicines: Monitored Anesthesia Care Patient Profile: This is a 57 year old female. Refer to note in patient chart for documentation of history and physical. Patient has symptoms of chronic epigastric abdominal pain and dysphagia with solids. Complications: No immediate complications. Procedure: Pre-Anesthesia Assessment: - Prior to the procedure, a History and Physical was performed, and patient medications and allergies were reviewed. The patient is competent. The risks and benefits of the procedure and the sedation options and risks were discussed with the patient. All questions were answered and informed consent was obtained. Patient identification and proposed procedure were verified in the pre-procedure area. Mental Status Examination: alert and oriented. Airway Examination: normal oropharyngeal airway and neck mobility. Respiratory Examination: clear to auscultation. CV Examination: normal. Prophylactic Antibiotics: The patient does not require prophylactic antibiotics. Prior Anticoagulants: The patient has taken no previous anticoagulant or antiplatelet agents. ASA Grade Assessment: II - A patient with mild systemic disease. After reviewing the risks and benefits, the patient was deemed in satisfactory condition to undergo the procedure. The anesthesia plan was to use monitored anesthesia care (MAC). Immediately prior to administration of medications, the patient was re-assessed for adequacy to receive sedatives. The heart rate, respiratory rate, oxygen saturations, blood pressure, adequacy of pulmonary ventilation, and response to care were monitored throughout the procedure. The physical status of the patient was re-assessed after the procedure. After obtaining informed consent, the endoscope was passed under direct vision. Throughout the procedure, the patient's blood pressure, pulse, and oxygen saturations were monitored continuously. The gastroscope was introduced through the mouth, and advanced to the second part of duodenum. The upper GI endoscopy was accomplished without difficulty. The patient tolerated the procedure well. Scope In: 12:21:46 PM Scope Out: 12:30:59 PM Total Procedure Duration Time 0 hours 9 minutes 13 seconds Findings: A moderate Schatzki ring was found in the lower third of the esophagus. A guidewire was placed and the scope was withdrawn. Dilation was performed with a Savary dilator with no resistance at 51 Fr. The dilation site was examined and showed moderate improvement in luminal narrowing. Estimated blood loss was minimal. The Z-line was irregular and was found 38 cm from the incisors. Biopsies were taken with a cold forceps for histology. Verification of patient identification for the specimen was done. Estimated blood loss was minimal. One non-bleeding superficial gastric ulcer with no stigmata of bleeding was found in the gastric antrum. The lesion was 3 mm in largest dimension. Biopsies were taken with a cold forceps for histology. Verification of patient identification for the specimen was done. Estimated blood loss was minimal. The second portion of the duodenum was normal. Impression: - Moderate Schatzki ring. Dilated. - Z-line irregular, 38 cm from the incisors. Biopsied. - Non-bleeding gastric ulcer with no stigmata of bleeding. Biopsied. - Normal second portion of the duodenum. Recommendation: - Discharge patient to home. - Resume previous diet. - Continue present medications. - Await pathology results. Procedure Code(s): --- Professional --- 54853, Esophagogastroduodenoscopy, flexible, transoral; with insertion of guide wire followed by passage of dilator(s) through esophagus over guide wire 39553, 59,51, Esophagogastroduodenoscopy, flexible, transoral; with biopsy, single or multiple CPT copyright 2017 [employer]. All rights reserved. The codes documented in this report are preliminary and upon forestry engineer review may be revised to meet current compliance requirements. Raoul June DO 08/14/2022 12:36:43 PM This report has been signed electronically. Number of Addenda: 0 Note Initiated On: 08/14/2022 12:08 PM
--- NOTE | 2022-08-14 12:38 | OP.CCLET_ITS ---
08/14/2022 Geeta Odell [address] [address] Re : Upper GI endoscopy procedure for Jazminclarissa Yo Dear Dr. Odell This procedure was performed on Sunday, August 14, 2022. My impressions and recommendations are as follows: Impressions : - Moderate Schatzki ring. Dilated. - Z-line irregular, 38 cm from the incisors. Biopsied. - Non-bleeding gastric ulcer with no stigmata of bleeding. Biopsied. - Normal second portion of the duodenum. Recommendations : - Discharge patient to home. - Resume previous diet. - Continue present medications. - Await pathology results. My findings are described in the full procedure note, which is enclosed. If I can be of further assistance, please feel free to contact me at . Sincerely, Raoul Friend, 08/14/2022 12:36:43 PM This report has been signed electronically.
[2022-08-14 12:40] VITALS: BP 123/81; BP 149/85; PULSE 88; RESP 16; O2SAT 97
[2022-08-14 12:45] VITALS: BP 129/76; BP 149/85; PULSE 85; RESP 16; O2SAT 97
[2022-08-14 12:50] VITALS: BP 117/79; BP 149/85; PULSE 81; RESP 16; TEMP 36.9; O2SAT 98
[2022-08-14 13:14] VITALS: BP 149/85
== END 2022-08-14 13:48 | disposition home or self-care (01) ==
LOC: EN 11:15 → AC 11:15
PROVIDERS: PCP Family Medicine; Referring Provider Family Medicine; Visit Provider Internal Medicine Gastroenterology
PROC: 0DJ08ZZ Inspection of Upper Intestinal Tract, Via Natural or Artificial Opening Endoscopic (ICD-10-PCS; CPT 43235; principal; 2022-08-14 12:10)
DX: K22.2 Esophageal obstruction (principal); Z94.4 Liver transplant status; K74.60 Unspecified cirrhosis of liver; E11.9 Type 2 diabetes mellitus without complications; K25.7 Chronic gastric ulcer without hemorrhage or perforation; K25.3 Acute gastric ulcer without hemorrhage or perforation; K21.00 Gastro-esophageal reflux disease with esophagitis, without bleeding; F32.A Depression, unspecified; M54.16 Radiculopathy, lumbar region; Z86.73 Personal history of transient ischemic attack (TIA), and cerebral infarction without residual deficits; Z86.718 Personal history of other venous thrombosis and embolism; Z86.16 Personal history of COVID-19; Z79.84 Long term (current) use of oral hypoglycemic drugs; Z79.899 Other long term (current) drug therapy
CPT/HCPCS: 43248; 43239; 82962; 88305; 88313; 88342; J7120; J2405

== ENCOUNTER → 2022-11-07 | Outpatient (CLI) | payer MEDICARE, MEDICAID, SELFPAY ==
[2022-11-07 15:15] LABS: Absolute Lymphocyte Count 1.78 X10^3/uL (0.83-4.51); Absolute Neutrophil Count 4.9 X10^3/uL (2.0-7.7); Basophil# 0.04 X10^3/uL; Basophil% 0.6 % (0-1); Color, Urine Yellow (Yellow); Eosinophil# 0.08 X10^3/uL; Eosinophils% 1.1 % (0-5); Glucose, Dipstick 50 mg/dl (Normal); Hematocrit 39.6 % (37-47); Hemoglobin 13.6 g/dL (12.0-15.0); Ketone-Dipstick Negative (Negative); Leukocyte Esterase-Dipstick 100 /ul (Negative); Lymphocyte # 1.78 X10^3/ul (0.83-4.51); Lymphocyte % 24.9 % (19-41); Mean Corp Hgb Conc 34.3 g/dL (32-36); Mean Corpuscular Hgb 26.9 pg (27.0-32.0); Mean Corpuscular Volume 78.3 fL (81-99); Mean Platelet Vol. 10.2 fl (6.2-12.0); Monocyte# 0.36 X10^3/uL; NRBC Flagged by Analyzer 0 % (0-5); Neutrophil # 4.88 X10^3/uL (2.7-7.7); Neutrophil % 68.1 % (47-70); Nitrite-Dipstick Negative (Negative); Occult Blood-Urine Negative /ul (Negative); Platelet Count 149 K/mm3 (150-450); Protein-Dipstick 15 mg/dl (Negative); RBC Distribution Width CV 13.9 % (11.6-14.6); RBC Distribution Width SD 38.8 fl (35.1-43.9); Red Blood Count 5.06 M/mm3 (4.2-5.4); Urine Bilirubin Dipstick Negative (Negative); Urine Clarity Clear (Clear); Urine Urobilinogen Normal (Normal); White Blood Count 7.2 K/mm3 (4.4-11.0)
[2022-11-07 15:38] LABS: Vitamin B12 508 pg/mL (211-911)
[2022-11-07 15:52] LABS: ALB/GLOB Ratio 0.9 RATIO (0.9-2.4); AST(SGOT) 15 U/L (15-37); Alanine Aminotransfer ALT/SGPT 23 U/L (13-56); Albumin, Serum 3.4 g/dL (3.2-5.0); Alkaline Phosphatase 129 U/L (45-117); Anion Gap 9 (5-15); BUN 7 mg/dL (7-18); BUN/Creat Ratio 8.8 RATIO (10-20); Chloride 102 mmol/L (98-107); Creatinine, Serum 0.79 mg/dL (0.55-1.02); EST Glomerular Filtration Rate 80 mL/min (>60); Est Glom Filt Rate - Afr Amer 97 mL/min (>60); Globulin 3.8 g/dL (2.2-4.2); Glucose 210 mg/dL (74-106); Potassium 3.8 mmol/L (3.5-5.1); Protein, Total 7.2 g/dL (6.4-8.2); Sodium Level 136 mmol/L (136-145)
== END | disposition home or self-care (01) ==
LOC: BFHLAB 11:28
PROVIDERS: PCP Family Medicine; Referring Provider Family Medicine; Visit Provider Family Medicine
DX: E11.9 Type 2 diabetes mellitus without complications (principal); Z94.4 Liver transplant status; E46 Unspecified protein-calorie malnutrition; R30.0 Dysuria
CPT/HCPCS: 36415; 80053; 81002; 82607; 84134; 85025

== ENCOUNTER 2022-12-09 08:59 | Observation (INO) | payer MEDICARE, MEDICAID, SELFPAY ==
[2022-12-09] VITALS (13 sets, daily range): BP systolic 124–160; BP diastolic 68–87; PULSE 82–113; RESP 16–21; TEMP 36.6–38.7; O2SAT 96–99; BMI 24.9; BMI 25.9
--- NOTE | 2022-12-09 09:11 | CT_ITS ---
STUDY: CT ABDOMEN AND PELVIS WITH CONTRAST REASON FOR EXAM: Female, 57 years old. Fever vomiting and shortness of breath. History of prior liver transplant. RADIATION DOSAGE (If Supplied By Facility): CTDIvol = ( 10.15 ) mGy, DLP = ( 703.17 ) mGycm TECHNIQUE: Transaxial images were obtained from the dome of the diaphragm to the symphysis pubis without oral contrast. IV 100mL Isovue-300 was administered. Sagittal and coronal images were reconstructed. Individualized dose optimization techniques were used for this CT. COMPARISON: Comparison is made with prior study dated March 14, 2022. FINDINGS: Consolidation in the posterior medial segment of the right lower lobe. Patchy infiltrate in the posterior medial segment of the left lower lobe. Mild degree of coronary artery calcification. There is decreased attenuation of the liver consistent with steatosis. Surgical clips are seen in the region of the hilum of the liver in keeping with history of prior liver transplantation. The gallbladder is not visualized. Minimal dilatation of the central intrahepatic biliary ducts. The spleen measures upper limits of normal. Normal pancreas. Normal bilateral adrenal glands. Normal right kidney. Normal left kidney. Incidental note is made of a left retroaortic renal vein. Normal visualized stomach. Normal small intestine. There are scattered colonic diverticula consistent with diverticulosis. The appendix is visualized and appears normal. Normal abdominal aorta. Normal inferior vena cava. Normal retroperitoneum. Normal urinary bladder. There is absence of the uterus consistent with a prior hysterectomy. Normal abdominal wall. Loss of height of the superior endplates of the L1 and L2 vertebrae. CT/Abdomen/Pelvis W IV Cont ONLY IMPRESSION: Infiltrate/consolidation in the posterior medial segment of the right lower lobe as well as focal infiltrate in the posterior medial segment of the left lower lobe. The patient is status post liver transplantation with fatty infiltration and minimal dilated central intrahepatic biliary ducts. Sigmoid diverticulosis. Loss of height of the superior endplate of the L1 and L2 vertebrae. Electronically Signed: Terrance Kim MD at 11:04 EDT ,
--- NOTE | 2022-12-09 09:14 | EX.ED.DYSGE1 ---
HPI History of Present Illness Chief Complaint: General Illness Informant: patient Onset/Context/Timing Onset: Days Context: Gradual Onset Timing: Continuous Current Severity: Mild Maximum Severity: Mild Narrative Narrative: 57-year-old female history of diabetes prior liver transplant 2018 prior DVT when she is currently on no blood thinners. States that I think I have a UTI. Says she has had fever and chills since Friday. Developed some right flank pain. Does not believe she is ever had a kidney stone. On Friday started having nausea and vomiting. Fevers been as high as 104. He is also stating that she believes from being sick she started to have a migraine. Prior similar symptoms: Yes Recent Illness/Hospitalization: No PFSH PFSH Medical History Alcohol use Anxiety Arthritis Asthma Back pain Blackout Bladder disease Cancer Cirrhosis Clostridium difficile colitis COVID CVA (cerebral vascular accident) Diabetes Dietary restriction DVT (deep venous thrombosis) DVT (deep venous thrombosis) Epilepsy Esophageal varices Fatigue Gastric reflux Gastric ulcer Hiatal hernia History of echocardiogram History of IBS History of pain when walking History of stress test History of ulceration Immunocompromised state due to drug therapy Leg cramps Major depressive disorder Migraine Migraine headache MARMOLEJO (nonalcoholic steatohepatitis) Neuropathy Non-smoker PTSD (post-traumatic stress disorder) Restless legs Seasonal allergies Seizures Serum ammonia increased Shortness of breath on exertion TIA (transient ischemic attack) Wears contact lenses Wears glasses Home Medications albuterol sulfate 90 mcg/actuation aerosol inhaler 1 - 2 puff inhalation Q4H PRN PRN breathing 02/08/18 [History Last Taken 06/20/21] entecavir 0.5 mg tablet 0.5 mg PO DAILY hepatitis B 12/25/18 [History Last Taken 06/20/21] mycophenolate mofetil 250 mg capsule (CellCept) 250 mg PO BID antirejection 02/17/20 [History Last Taken 06/20/21] tacrolimus 5 mg capsule, immediate-release (Prograf) 2 mg PO BID antirejection 02/17/20 [History Last Taken 08/14/22] zolpidem 10 mg tablet (Ambien) 10 mg PO QHS sleep 02/17/20 [History Last Taken 06/20/21] metformin 500 mg tablet 500 mg PO DAILY diabetes 09/12/20 [History Last Taken 06/20/21] fluticasone furoate 100 mcg-vilanterol 25 mcg/dose inhalation powder (Breo Ellipta) 2 ea inhalation DAILY PRN Shortness Of Breath 11/19/20 [History Last Taken 06/20/21] hydroxyzine HCl 25 mg tablet 25 mg PO Q4H PRN PRN Anxiety 03/12/21 [History Last Taken 06/20/21] Disability Placard #1 ea 05/15/22 [Rx Last Taken Unknown] carbamazepine 100 mg chewable tablet 100 mg PO BID #60 tabs 05/15/22 [Rx Last Taken Unknown] methocarbamol 500 mg tablet See Rx Instructions PO .COMPLEX #120 tabs 06/03/22 [Rx Last Taken Unknown] naratriptan 2.5 mg tablet See Rx Instructions PO .COMPLEX #9 tabs 07/23/22 [Rx Last Taken Unknown] famotidine 40 mg tablet (Pepcid) 40 mg PO DAILY 08/12/22 [History Last Taken Unknown] pantoprazole 40 mg tablet,delayed release (Protonix) 40 mg PO DAILY #30 tabs 09/18/22 [Rx Last Taken Unknown] ropinirole 1 mg tablet 1.5 mg PO QHS #45 tabs 10/21/22 [Rx Last Taken Unknown] tizanidine 4 mg tablet See Rx Instructions PO .COMPLEX #90 tabs 10/22/22 [Rx Last Taken Unknown] citalopram 40 mg tablet 40 mg PO DAILY 30 days #30 tabs 11/19/22 [Rx Last Taken Unknown] Allergy/AdvReac Type Severity Reaction Status Date / Time sulfamethoxazole Allergy Fever and Verified 11/19/22 12:58 [From Bactrim] skin rash trimethoprim [From Bactrim] Allergy Fever and Verified 11/19/22 12:58 skin rash diphenhydramine HCl AdvReac climb the Verified 11/19/22 12:58 [From Benadryl] rose lorazepam [From Ativan] AdvReac Climb the Verified 11/19/22 12:58 rose prochlorperazine edisylate AdvReac climb the Verified 11/19/22 12:58 [From Compazine] rose prochlorperazine maleate AdvReac climb out Verified 11/19/22 12:58 [From Compazine] of my body promethazine HCl AdvReac climb the Verified 11/19/22 12:58 [From Phenergan] rose topiramate [From Topamax] AdvReac Other Verified 11/19/22 12:58 tramadol AdvReac climb the Verified 11/19/22 12:58 rose Family History Mother Heart disease COPD (chronic obstructive pulmonary disease) Father Chronic alcoholism Surgical History H/O liver transplant History of lumbar spinal fusion Hx of breast reduction, elective Hx of cholecystectomy Hx of colonoscopy Hx of dilation and curettage Hx of esophagogastroduodenoscopy Hx of hemorrhoidectomy Hx of hysterectomy Hx of left knee surgery Hx of repair of right rotator cuff Hx of right knee surgery Hx of tubal ligation Hx of ventral hernia repair Liver transplant recipient Social History Smoking Status: Never smoker second hand exposure: No alcohol intake: former substance use type: does not use what type of physical activity do you participate in: walking ROS ROS ED ROS Narrative Abdominal pain, flank pain, fever, nausea and vomiting. Headache. Review of Systems ROS Unobtainable: Denies due to encephalopathy Constitutional Constitutional ED: Reports chills and fever(s) Eyes Eyes: Denies blurry vision ENT ENT ED: Denies ear pain Cardiovascular Cardiovascular: Denies chest pain Respiratory/Chest Respiratory/Chest: Denies cough Gastrointestinal Gastrointestinal: Reports abdominal pain, nausea and vomiting Genitourinary Genitourinary ED: Reports urinary frequency Musculoskeletal Musculoskeletal: Denies arthralgias Integumentary Denies abscess Neurologic Neurologic: Reports headache(s) Psychiatric Psychiatric: Denies anxiety Endocrine Endocrinology: Denies cold intolerance Hematologic/Lymphatic Hematologic/Lymphatic: Reports none Allergic/Immunologic Allergic/Immunologic ED: Denies mouth swelling or tongue swelling EXAM Physical Exam Narrative Exam Narrative: 57-year-old female vital signs are stable currently she is afebrile at 98.6. She does not look septic or toxic. H EENT exam pupils round reactive light. No facial trauma or droop. Dry mucous membranes. Neck nontender no lymphadenopathy. No meningismus. Lungs clear to auscultation bilaterally. Heart regular rhythm rate about 95 no murmur. Chest wall nontender. Abdomen soft, nondistended normal bowel sounds no peritoneal signs. Diffusely tender nonlocalizing. Back right CVA tenderness. No signs of trauma to the back left side unremarkable. Moving all 4 extremities. Nontender no edema. Neurologically she is awake and alert with no focal motor deficits. NIH score 0. Const Vital Signs: 12/09/22 09:00 12/09/22 09:04 12/09/22 09:03 Temperature 98.6 F 98.6 F Temperature Source Temporal Temporal Pulse Rate 95 95 Respiratory Rate 18 18 Respiratory Effort Normal Respiratory Pattern Normal Blood Pressure 128/71 H 128/71 H Blood Pressure Mean 90 90 Pulse Ox 97 97 Oxygen Delivery Method Room Air Room Air 12/09/22 10:03 12/09/22 11:03 Temperature 97.8 F 98.3 F Temperature Source Temporal Temporal Pulse Rate 82 104 H Respiratory Rate 18 20 H Respiratory Effort Respiratory Pattern Blood Pressure 141/72 H 129/72 H Blood Pressure Mean 95 91 Pulse Ox 98 96 Oxygen Delivery Method Room Air Room Air Positive well nourished and well developed; Negative for obese, cachectic, contractures or unkempt General Appearance ED: well developed and NAD; Negative for unkempt, cachectic, contractures, cyanotic, diaphoretic or pallor Nutritional Appearance: Negative for cachectic or obese HEENT Reports dry mucous membranes; Denies moist mucous membranes Negative for trauma or tenderness Mouth ED: Yes dry mucous membranes Mouth: dry mucous membranes Eyes PERRL and EOMs intact bilaterally General Eye ED: Negative for pale conjunctiva or scleral icterus Neck no lymphadenopathy, supple and no JVD General: Negative for tenderness Chest Wall inspection of chest normal and palpation of chest normal Resp normal respiratory effort and clear to auscultation bilaterally Effort and Inspection: Negative for retractions Auscultation: Negative for rales, rhonchi or wheezes Cardio regular rate, regular rhythm, S1 normal heart sound, S2 normal heart sound and no murmurs GI normal to inspection, nondistended, normoactive bowel sounds, non-tender, non-distended and no masses Auscultation: normoactive bowel sounds Palpation: soft; Negative for tender or guarding Back/Spine no CVA tenderness General Back: Negative for CVA tenderness Cervical Spine: Negative for cervical spine tenderness Thoracic Spine / Upper Back: Negative for thoracic spinal tenderness or paraspinal muscle tenderness Lumbar Spine / Lower Back: Negative for lumbar spinal tenderness Extremity normal to inspection General Extremety ED: Negative for edema or tenderness General Extremity: Negative for edema Neuro oriented x3 and CN's II-XII intact bilaterally Sensorium / Orientation: alert; Negative for orientation impaired, lethargic, stuporous or other Motor Exam: strength 5/5 throughout; Negative for general weakness Psych mental status grossly normal Appearance: Negative for unkempt Attitude: No agitated Mood & Affect: Negative for depressed or anxious Skin no rashes or lesions noted and no wounds General Skin Exam: Negative for jaundice or pallor Lesions: No lesion noted Rashes: No rashes noted Trauma: Negative for abrasion Wounds: Negative for wounds noted MDM MDM MDM Narrative Medical decision making narrative: 57-year-old female complaining of flank pain with abdominal pain with nausea vomiting fever and chills. Exam shows diffuse nonlocalizing abdominal pain. She will be treated with IV fluids for dehydration, Zofran for nausea and Toradol for her headache. CAT scan of her abdomen due to the diffuse abdominal pain. Screening labs. This may be secondary to UTI and pyelonephritis versus other etiologies. Patient refused the Toradol. She was complaining of more flank discomfort she was given IV morphine along with the Zofran she had previously received. Repeat exam patient is due on well at 11:35 AM. She and I discussed her test results that clinically I think is from a right lower lobe pneumonia. She states she feels way too bad to be discharged home. I told her I would discuss it with the hospitalist about possible admission. She will be started on IV antibiotics, IV Rocephin and IV Zithromax. History & Record Review Discussion w/independent historian: Patient Lab Data Attestation: I reviewed the patient's lab results. Lab results narrative: CBC unremarkable white count 9.7. H&H 12 and 33. Platelets are slightly low at 109,000. Electrolytes show sodium 124. Potassium 3.3. Gap is 12. Normal BUN and creatinine 11 and 0.9. Glucose is elevated 304. She is a known diabetic. Liver enzymes unremarkable. Lipase normal at 15. Lactic acid is elevated 2.6. Urinalysis is normal. No nitrates. No white cells or bacteria. CT abdomen pelvis shows a possible lower lobe pneumonia. Chest x-ray is being obtained. No significant intra-abdominal pathology. Read by radiologist reviewed by me. Chest x-ray was obtained and looks like a right lower lobe pneumonia. Labs: Laboratory Results - last 24 hr 12/09/22 12/09/22 12/09/22 09:08 09:08 09:08 WBC 9.7 RBC 4.46 Hgb 12.1 Hct 33.4 L MCV 74.9 L MCH 27.1 MCHC 36.2 H RDW Std Deviation 36.1 RDW Coeff of Nicole 13.4 Plt Count 109 L MPV 10.4 Immature Gran % (Auto) 0.600 Neut % (Auto) 88.6 H Lymph % (Auto) 5.5 L [place] % (Auto) 5.1 Eos % (Auto) 0.0 Baso % (Auto) 0.2 Absolute Neuts (auto) 8.6 H Absolute Lymphs (auto) 0.53 L Nucleated RBC % 0 Differential Comment COMMENT Sodium 124 L Potassium 3.3 L Chloride 93 L Carbon Dioxide 19.0 L Anion Gap 12 BUN 11 Creatinine 0.99 Estim Creat Clear Calc 55.44 Est GFR (MDRD) Af Amer 75 Est GFR (MDRD) Non-Af 62 BUN/Creatinine Ratio 11.1 Glucose 304 H Lactic Acid 2.6 H* Calcium 8.1 L Total Bilirubin 1.30 H AST 16 ALT 14 Alkaline Phosphatase 102 Total Protein 7.0 Albumin 2.9 L Globulin 4.1 Albumin/Globulin Ratio 0.7 L Lipase 15 Urine Color Urine Clarity Urine pH Ur Specific [place] Urine Protein Urine Glucose (UA) Urine Ketones Urine Occult Blood Urine Nitrite Urine Bilirubin Urine Urobilinogen Ur Leukocyte Esterase Urine RBC Urine WBC Ur Squamous Epith Cells Urine Bacteria Urine Mucus 12/09/22 10:03 WBC RBC Hgb Hct MCV MCH MCHC RDW Std Deviation RDW Coeff of Nicole Plt Count MPV Immature Gran % (Auto) Neut % (Auto) Lymph % (Auto) [place] % (Auto) Eos % (Auto) Baso % (Auto) Absolute Neuts (auto) Absolute Lymphs (auto) Nucleated RBC % Differential Comment Sodium Potassium Chloride Carbon Dioxide Anion Gap BUN Creatinine Estim Creat Clear Calc Est GFR (MDRD) Af Amer Est GFR (MDRD) Non-Af BUN/Creatinine Ratio Glucose Lactic Acid Calcium Total Bilirubin AST ALT Alkaline Phosphatase Total Protein Albumin Globulin Albumin/Globulin Ratio Lipase Urine Color Yellow Urine Clarity Sl. Cloudy Urine pH 7.0 Ur Specific [place] 1.010 Urine Protein 15 H Urine Glucose (UA) 1000 H Urine Ketones 15 H Urine Occult Blood 10 H Urine Nitrite Negative Urine Bilirubin Negative Urine Urobilinogen Normal Ur Leukocyte Esterase Negative Urine RBC 0-5 SEEN Urine WBC 0 SEEN Ur Squamous Epith Cells 0-5 SEEN Urine Bacteria 0 SEEN Urine Mucus 0 SEEN Radiography Chest X-Ray - ED: 2 View, Read by ED Physician, Heart, Mediastinum, Bony Structures, Chronic Changes, Right Infiltrate and - (Right lower lobe pneumonia.) Diagnostic Testing: Clinical Impression(s) from Imaging Studies Abdomen/Pelvis CT 12/09/22 09:11 IMPRESSION: Infiltrate/consolidation in the posterior medial segment of the right lower lobe as well as focal infiltrate in the posterior medial segment of the left lower lobe. The patient is status post liver transplantation with fatty infiltration and minimal dilated central intrahepatic biliary ducts. Sigmoid diverticulosis. Loss of height of the superior endplate of the L1 and L2 vertebrae. Electronically Signed: Terrance Kim MD at 11:04 EDT , Chest x-ray, 2 views, interpreted by myself shows a right lower lobe pneumonia. Normal cardiac silhouette. Discharge Plan Dx/Rx/DC Orders Clinical Impression: Acute abdominal pain in right flank, Nausea & vomiting, Acute hyponatremia, History of transplantation, liver, Right lower lobe pneumonia Disposition Disposition: [facility]
[2022-12-09] MEDS: 0.9% Normal Saline 1,000 ML 1000 ML IV (09:22)
[2022-12-09] MEDS: Ondansetron 4 MG/2 ML Vial IV ×3 (09:22→22:03)
[2022-12-09 09:33] LABS: Absolute Lymphocyte Count 0.53 X10^3/uL (0.83-4.51); Absolute Neutrophil Count 8.6 X10^3/uL (2.0-7.7); Basophil# 0.02 X10^3/uL; Basophil% 0.2 % (0-1); Hematocrit 33.4 % (37-47); Hemoglobin 12.1 g/dL (12.0-15.0); Lymphocyte # 0.53 X10^3/ul (0.83-4.51); Lymphocyte % 5.5 % (19-41); Mean Corp Hgb Conc 36.2 g/dL (32-36); Mean Corpuscular Hgb 27.1 pg (27.0-32.0); Mean Corpuscular Volume 74.9 fL (81-99); Mean Platelet Vol. 10.4 fl (6.2-12.0); Monocyte# 0.49 X10^3/uL; Monocyte% 5.1 % (0-10); NRBC Flagged by Analyzer 0 % (0-5); Neutrophil # 8.59 X10^3/uL (2.7-7.7); Neutrophil % 88.6 % (47-70); POSITIVE DIFFERENTIAL YES; Platelet Count 109 K/mm3 (150-450); RBC Distribution Width CV 13.4 % (11.6-14.6); RBC Distribution Width SD 36.1 fl (35.1-43.9); Red Blood Count 4.46 M/mm3 (4.2-5.4); White Blood Count 9.7 K/mm3 (4.4-11.0)
[2022-12-09] MEDS: SUMAtriptan 6 MG/0.5 ML Vial SC ×2 (09:40→17:31)
[2022-12-09 09:44] LABS: ALB/GLOB Ratio 0.7 RATIO (0.9-2.4); AST(SGOT) 16 U/L (15-37); Alanine Aminotransfer ALT/SGPT 14 U/L (13-56); Albumin, Serum 2.9 g/dL (3.2-5.0); Alkaline Phosphatase 102 U/L (45-117); Anion Gap 12 (5-15); BUN 11 mg/dL (7-18); BUN/Creat Ratio 11.1 RATIO (10-20); Calcium,Total 8.1 mg/dL (8.5-10.1); Chloride 93 mmol/L (98-107); Creatinine, Serum 0.99 mg/dL (0.55-1.02); EST Glomerular Filtration Rate 62 mL/min (>60); Est Glom Filt Rate - Afr Amer 75 mL/min (>60); Estimated Creatinine Clearance 55.44 ml/min; Globulin 4.1 g/dL (2.2-4.2); Glucose 304 mg/dL (74-106); Lipase 15 U/L (13-75); Potassium 3.3 mmol/L (3.5-5.1); Sodium Level 124 mmol/L (136-145)
[2022-12-09 09:46] LABS: Differential Indicated SCAN CRITERIA MET
[2022-12-09 09:53] LABS: Lactic Acid 2.6 mmol/L (0.4-1.9)
[2022-12-09] MEDS: morphine 8 MG/ML Syringe 6 MG IV (10:02)
[2022-12-09 10:12] LABS: Bacteria 0 SEEN /hpf (None Seen); Mucous, Urine 0 SEEN /hpf (<or=2+); White Blood Cells 0 SEEN /hpf (0-5)
[2022-12-09 10:20] LABS: Color, Urine Yellow (Yellow); Glucose, Dipstick 1000 mg/dl (Normal); Ketone-Dipstick 15 mg/dl (Negative); Leukocyte Esterase-Dipstick Negative /ul (Negative); Nitrite-Dipstick Negative (Negative); Occult Blood-Urine 10 /ul (Negative); Protein-Dipstick 15 mg/dl (Negative); Urine Bilirubin Dipstick Negative (Negative); Urine Clarity Sl. Cloudy (Clear); Urine Urobilinogen Normal (Normal)
[2022-12-09 10:42] LABS: Red Blood Cells-Urine 0-5 SEEN /hpf (0-5); Squamous Epithelial Cells - UA 0-5 SEEN /hpf (5-10)
--- NOTE | 2022-12-09 11:20 | RAD_ITS ---
STUDY: X-RAY CHEST REASON FOR EXAM: Female, 57 years old. fever. ?? Pneumonia TECHNIQUE: AP and lateral views of the chest. COMPARISON: Comparison is made with prior study dated June 19, 2022. FINDINGS: Focal infiltrate in the posterior medial segment of the right lower lobe. There is no demonstrated pleural abnormality. Normal size heart. Normal mediastinum and erin. Normal visualized pulmonary arteries. Normal visualized aortic arch and descending thoracic aorta. Normal visualized thoracic spine. Normal visualized ribs, clavicles, and shoulders. There is no demonstrated abnormality of the visualized soft tissue structures of the upper abdomen. RAD/Chest PA and Lateral IMPRESSION: Right lower lobe infiltrate. Electronically Signed: Terrance Kim MD at 11:35 EDT ,
[2022-12-09] MEDS: Ceftriaxone 1 GM/50 ML BAG IV (11:51)
--- NOTE | 2022-12-09 12:05 | NURSING ---
DR RANDALL PENA
--- NOTE | 2022-12-09 12:09 | NURSING ---
MED SURG RANDALL RLL PNEUMONIA, IMMUNOCOMPROMISED, LIVER TX HS, HYPONATREMIA
[2022-12-09 13:07] LABS: Reflex Lactate? Y
[2022-12-09 13:51] LABS: Lactic Acid 3.2 mmol/L (0.4-1.9)
[2022-12-09] MEDS: Potassium Chloride Oral Tablet 20 MEQ 40 MEQ PO (13:55)
[2022-12-09] MEDS: 0.9% Normal Saline 1,000 ML 100 ML IV ×2 (13:56→23:34)
[2022-12-09] MEDS: Morphine 4 MG/ML Syringe IV ×2 (14:23→17:30)
[2022-12-09] MEDS: Acetaminophen 325 MG Tablet 650 MG PO ×2 (14:23→22:03)
[2022-12-09] MEDS: 0.9% Saline Lock 10 ML Syringe IV ×3 (14:24→22:02)
[2022-12-09] MEDS: Insulin Lispro 100 UNIT/ML INSULN.PEN SC ×2 (16:01→22:59)
[2022-12-09 17:30] LABS: Bedside Glucose 212 mg/dL (74-106)
--- NOTE | 2022-12-09 19:52 | PCM.HP.STD ---
HPI - General General Date of Admission: 12/09/22 Date of Service: 12/09/22 Chief Complaint: Fever, chills, shortness of breath HPI Narrative STEPHANE CABALLERO, is a 57 F who presents the emergency room at [facility] with chief complaint of fever, chills, and some shortness of breath over the last 2 to 3 days. Patient is a previous liver transplant patient, she underwent a liver transplant 2017. Patient denies any purulent sputum production, she denies any dysuria. Patient states that she complained of some vomiting and nausea that started 2 days ago. Patient states she did not go for evaluation to the ER because she was stubborn. Work-up in the emergency room included an abdominal CT which showed evidence of bilateral lower lobe pneumonia, there is noted to be fatty infiltration of the liver and some sigmoid diverticulosis, there is also noted to be loss of height of the superior endplate of L1 and L2 vertebrae. Chest x-ray showed right lower lobe infiltrate. Work-up in the emergency room also included labs which showed normal white blood cell count, chemistry profile showed a low sodium at 124, potassium was 3.3. Patient was afebrile in the emergency room. Patient was placed in observation status on MedSurg 3 for bilateral lower lobe pneumonia, patient was not hypoxic, patient's lactic acid was noted to be elevated, blood cultures were not obtained however from the emergency room before antibiotics were administered. Patient will be maintained on Rocephin and Zithromax, IV fluids will be administered, repeat labs will be obtained tomorrow. [facility] Medical History (Updated 12/09/22 @ 20:[address] Ronnie Contreras, ) Alcohol use Anxiety Arthritis Asthma Back pain Blackout Bladder disease Cancer Cirrhosis Clostridium difficile colitis COVID CVA (cerebral vascular accident) Diabetes Dietary restriction DVT (deep venous thrombosis) DVT (deep venous thrombosis) Epilepsy Esophageal varices Fatigue Gastric reflux Gastric ulcer Hiatal hernia History of echocardiogram History of IBS History of pain when walking History of stress test History of ulceration Immunocompromised state due to drug therapy Leg cramps Major depressive disorder Migraine Migraine headache JEWELL (nonalcoholic steatohepatitis) Neuropathy Non-smoker PTSD (post-traumatic stress disorder) Restless legs Seasonal allergies Seizures Serum ammonia increased Shortness of breath on exertion TIA (transient ischemic attack) Wears contact lenses Wears glasses Home Medications albuterol sulfate 90 mcg/actuation aerosol inhaler 1 - 2 puff inhalation Q4H PRN PRN breathing 02/08/18 [History Last Taken 12/07/22] entecavir 0.5 mg tablet 0.5 mg PO DAILY hepatitis B 12/25/18 [History Last Taken 12/07/22] mycophenolate mofetil 250 mg capsule (CellCept) 250 mg PO BID antirejection 02/17/20 [History Last Taken 12/07/22] tacrolimus 5 mg capsule, immediate-release (Prograf) 2 mg PO BID antirejection 02/17/20 [History Last Taken 12/07/22] zolpidem 10 mg tablet (Ambien) 10 mg PO QHS sleep 02/17/20 [History Last Taken 12/07/22] metformin 500 mg tablet 500 mg PO DAILY diabetes 09/12/20 [History Last Taken 12/07/22] hydroxyzine HCl 25 mg tablet 25 mg PO Q4H PRN PRN Anxiety 03/12/21 [History Last Taken 12/07/22] carbamazepine 100 mg chewable tablet 100 mg PO BID #60 tabs 05/15/22 [Rx Last Taken 12/07/22] methocarbamol 500 mg tablet See Rx Instructions PO .COMPLEX #120 tabs 06/03/22 [Rx Last Taken 12/07/22] ropinirole 1 mg tablet 1.5 mg PO QHS #45 tabs 10/21/22 [Rx Last Taken 12/07/22] tizanidine 4 mg tablet See Rx Instructions PO .COMPLEX #90 tabs 10/22/22 [Rx Last Taken 12/07/22] citalopram 40 mg tablet 40 mg PO DAILY 30 days #30 tabs 11/19/22 [Rx Last Taken 12/07/22] mirabegron 50 mg tablet,extended release 24 hr (Myrbetriq) 50 mg PO DAILY . 12/09/22 [History Last Taken 12/07/22] sumatriptan succinate 100 mg tablet 100 mg PO Q2H PRN PRN Migraine Headache 12/09/22 [History Last Taken Unknown] Allergy/AdvReac Type Severity Reaction Status Date / Time sulfamethoxazole Allergy Fever and Verified 11/19/22 12:58 [From Bactrim] skin rash trimethoprim [From Bactrim] Allergy Fever and Verified 11/19/22 12:58 skin rash diphenhydramine HCl AdvReac climb the Verified 11/19/22 12:58 [From Benadryl] rose lorazepam [From Ativan] AdvReac Climb the Verified 11/19/22 12:58 rose prochlorperazine edisylate AdvReac climb the Verified 11/19/22 12:58 [From Compazine] rose prochlorperazine maleate AdvReac climb out Verified 11/19/22 12:58 [From Compazine] of my body promethazine HCl AdvReac climb the Verified 11/19/22 12:58 [From Phenergan] rose topiramate [From Topamax] AdvReac Other Verified 11/19/22 12:58 tramadol AdvReac climb the Verified 11/19/22 12:58 rose Family History Mother Heart disease COPD (chronic obstructive pulmonary disease) Father Chronic alcoholism Surgical History (Updated 12/09/22 @ 14:13 by Selam Terrell) H/O liver transplant History of lumbar spinal fusion Hx of breast reduction, elective Hx of cholecystectomy Hx of colonoscopy Hx of dilation and curettage Hx of esophagogastroduodenoscopy Hx of hemorrhoidectomy Hx of hysterectomy Hx of left knee surgery Hx of repair of right rotator cuff Hx of right knee surgery Hx of tubal ligation Hx of ventral hernia repair Liver transplant recipient Social History Smoking Status: Never smoker second hand exposure: No alcohol intake: former substance use type: does not use what type of physical activity do you participate in: walking ROS Constitutional Constitutional: Reports chills, fever(s) and malaise; Denies anorexia, change in weight, night sweats or weakness Eyes Eyes: Denies blurry vision, change in vision, discharge from eye(s) or eye pain Cardiovascular Cardiovascular: Denies chest pain, claudication, dyspnea on exertion, edema or palpitations Respiratory/Chest Respiratory/Chest: Reports cough and shortness of breath with exertion; Denies hemoptysis or shortness of breath at rest Gastrointestinal Gastrointestinal: Denies abdominal pain, constipation, diarrhea, hematemesis, hematochezia, melena, nausea or vomiting Genitourinary Genitourinary: Denies dysuria, hematuria, urinary frequency, urinary hesitancy, urinary incontinence or urinary urgency Musculoskeletal Musculoskeletal: Denies back pain, joint pain, joint stiffness, joint swelling, myalgias or neck pain Neurologic Neurologic: Denies abnormal gait, abnormal speech, dizziness, focal weakness, headache(s), loss of vision, numbness, other visual disturbances, paresthesias, syncope or tingling Psychiatric Psychiatric: Denies anxiety, cognitive impairment, depression, irritability, mood swings or suicidal ideation Endocrine Endocrinology: Denies change in body appearance, cold intolerance, excessive sweating, heat intolerance, polydipsia or polyuria Hematologic/Lymphatic Hematologic/Lymphatic: Denies none, anemia, easy bleeding, easy bruising or lymphadenopathy Allergic/Immunologic Allergic/Immunologic: Denies rhinitis, urticaria, eczemia or asthma Vital Signs Vital Signs Vital Signs: 12/09/22 09:00 12/09/22 09:04 12/09/22 09:03 Temperature 98.6 F 98.6 F Temperature Source Temporal Temporal Pulse Rate 95 95 Respiratory Rate 18 18 Respiratory Effort Normal Respiratory Pattern Normal Blood Pressure 128/71 H 128/71 H Blood Pressure Mean 90 90 Blood Pressure Source Blood Pressure Position Blood Pressure Location Pulse Ox 97 97 Oxygen Delivery Method Room Air Room Air 12/09/22 10:03 12/09/22 11:03 12/09/22 13:23 Temperature 97.8 F 98.3 F 98.5 F Temperature Source Temporal Temporal Temporal Pulse Rate 82 104 H 89 Respiratory Rate 18 20 H 16 Respiratory Effort Respiratory Pattern Blood Pressure 141/72 H 129/72 H 124/87 H Blood Pressure Mean 95 91 99 Blood Pressure Source Blood Pressure Position Blood Pressure Location Pulse Ox 98 96 97 Oxygen Delivery Method Room Air Room Air Room Air 12/09/22 13:59 12/09/22 14:42 12/09/22 14:42 Temperature 101.5 F H Temperature Source Oral Pulse Rate 113 H Respiratory Rate 18 21 H Respiratory Effort Respiratory Pattern Blood Pressure 147/79 H Blood Pressure Mean 101 Blood Pressure Source Blood Pressure Position Blood Pressure Location Pulse Ox 98 99 99 Oxygen Delivery Method Room Air Room Air Room Air 12/09/22 15:12 12/09/22 15:14 12/09/22 15:27 Temperature 99.1 F 99.1 F Temperature Source Oral Oral Pulse Rate 101 H 101 H 101 H Respiratory Rate 16 16 Respiratory Effort Respiratory Pattern Blood Pressure 128/73 H 128/73 H Blood Pressure Mean 91 91 Blood Pressure Source Monitor Blood Pressure Position Semi-Fowlers Blood Pressure Location Right Arm Pulse Ox 99 99 Oxygen Delivery Method Room Air Room Air Weight Weight: 68.538 kg Body Mass Index (BMI) 25.9 Physical Exam Const alert, oriented x3, no apparent distress and average body habitus General Appearance: cooperative, well kempt and well developed Orientation / Consciousness: awake, oriented to person, oriented to place and oriented to time HEENT normocephalic, head/scalp atraumatic, hearing grossly normal bilaterally and moist oral mucous membranes Eyes PERRL, EOMs intact bilaterally and conjunctivae normal Neck supple, no JVD, thyroid normal and no carotid bruits General: trachea midline Resp normal respiratory effort, no retractions and no use of accessory muscles Resp Narrative: Breath sounds are diminished at the bases bilaterally Auscultation: Negative for rales, rhonchi or wheezes Cardio regular rate, regular rhythm, S1 normal heart sound, S2 normal heart sound, no murmurs, no rub and no gallops GI normal to inspection, nondistended, normoactive bowel sounds, soft to palpation, non-tender and non-distended Extremity no clubbing, cyanosis or edema Skin no rashes or lesions noted General Skin Exam: no breakdown Neuro oriented x3, CN's II-XII intact bilaterally, moves all extremities, no focal motor deficits and no sensory deficits noted Sensorium / Orientation: awake, alert, oriented to person, oriented to place and oriented to time Speech: speech normal Psych affect normal Results Lab / Micro Data Result Diagrams: 12/09/22 09:08 12/09/22 09:08 Labs: Laboratory Results - last 24 hr 12/09/22 09:08: WBC 9.7, RBC 4.46, Hgb 12.1, Hct 33.4 L, MCV 74.9 L, MCH 27.1, MCHC 36.2 H, RDW Std Deviation 36.1, RDW Coeff of Nicole 13.4, Plt Count 109 L, MPV 10.4, Immature Gran % (Auto) 0.600, Neut % (Auto) 88.6 H, Lymph % (Auto) 5.5 L, [place] % (Auto) 5.1, Eos % (Auto) 0.0, Baso % (Auto) 0.2, Absolute Neuts (auto) 8.6 H, Absolute Lymphs (auto) 0.53 L, Nucleated RBC % 0, Differential Comment COMMENT 12/09/22 09:08: Sodium 124 L, Potassium 3.3 L, Chloride 93 L, Carbon Dioxide 19.0 L, Anion Gap 12, BUN 11, Creatinine 0.99, Estim Creat Clear Calc 55.44, Est GFR (MDRD) Af Amer 75, Est GFR (MDRD) Non-Af 62, BUN/Creatinine Ratio 11.1, Glucose 304 H, Calcium 8.1 L, Total Bilirubin 1.30 H, AST 16, ALT 14, Alkaline Phosphatase 102, Total Protein 7.0, Albumin 2.9 L, Globulin 4.1, Albumin/Globulin Ratio 0.7 L, Lipase 15 12/09/22 09:08: Lactic Acid 2.6 H* 12/09/22 10:03: Urine Color Yellow, Urine Clarity Sl. Cloudy, Urine pH 7.0, Ur Specific [place] 1.010, Urine Protein 15 H, Urine Glucose (UA) 1000 H, Urine Ketones 15 H, Urine Occult Blood 10 H, Urine Nitrite Negative, Urine Bilirubin Negative, Urine Urobilinogen Normal, Ur Leukocyte Esterase Negative, Urine RBC 0-5 SEEN, Urine WBC 0 SEEN, Ur Squamous Epith Cells 0-5 SEEN, Urine Bacteria 0 SEEN, Urine Mucus 0 SEEN 12/09/22 13:18: Lactic Acid 3.2 H* 12/09/22 15:54: POC Glucose 212 H Radiology Impression Abdomen/Pelvis CT 12/09/22 09:11 IMPRESSION: Infiltrate/consolidation in the posterior medial segment of the right lower lobe as well as focal infiltrate in the posterior medial segment of the left lower lobe. The patient is status post liver transplantation with fatty infiltration and minimal dilated central intrahepatic biliary ducts. Sigmoid diverticulosis. Loss of height of the superior endplate of the L1 and L2 vertebrae. Electronically Signed: Terrance Kim MD at 11:04 EDT , Chest X-Ray 12/09/22 11:20 IMPRESSION: Right lower lobe infiltrate. Electronically Signed: Terrance Kim MD at 11:35 EDT , Assessment & Plan Assessment/Plan (1) Pneumonia: PLAN: Plan 1. Bilateral lower lobe community-acquired pneumonia-patient will be placed in observation status on MedSurg 3, she was placed on IV Zithromax and Rocephin, labs will be repeated tomorrow, patient will be placed on aerosol treatments #2 history of remote liver transplant-patient will remain on her home medications #3 degenerative joint disease of the lumbar spine-patient complains of back pain today, she states she fell over the weekend and twisted her back. Patient has an MRI of the lumbar spine in the medical record in 2021 which shows multilevel disc disease. Patient will be given pain medications as necessary for comfort #4 chronic depression-patient will remain on her home medications #5 type 2 diabetes-patient's blood sugars will be monitored, sliding scale insulin will be used as needed 6 chronic cirrhosis-patient has Jewell cirrhosis status post liver transplantation Total clinical time spent by myself addressing the patient's medical issues, reviewing all of her data, and collaborating with patient's care team: 55-minute Charges/Coding Visit Charges Inpatient E&M: 62797 Init Hosp L2
[2022-12-09] MEDS: carBAMazepine 200 MG Tablet 100 MG PO (22:59)
[2022-12-09] MEDS: Mycophenolate Mofetil 250 MG Capsule PO (22:59)
[2022-12-09] MEDS: Tacrolimus Anhydrous 1 MG Capsule 2 MG PO (23:06)
[2022-12-09] MEDS: oxyCODONE 5 MG Tablet 10 MG PO (23:10)
[2022-12-09 23:23] LABS: Lactic Acid 1.1 mmol/L (0.4-1.9)
[2022-12-10] VITALS (9 sets, daily range): BP systolic 139–166; BP diastolic 57–87; PULSE 95–107; RESP 16–20; TEMP 36.7–37.7; O2SAT 95–97
[2022-12-10] MEDS: Zolpidem Tartrate 5 MG Tablet PO (00:13)
[2022-12-10 00:40] LABS: Bedside Glucose 235 mg/dL (74-106)
[2022-12-10 06:13] LABS: Absolute Lymphocyte Count 0.48 X10^3/uL (0.83-4.51); Absolute Neutrophil Count 7.2 X10^3/uL (2.0-7.7); Basophil# 0.02 X10^3/uL; Basophil% 0.2 % (0-1); Hematocrit 33.2 % (37-47); Hemoglobin 11.5 g/dL (12.0-15.0); Lymphocyte # 0.48 X10^3/ul (0.83-4.51); Lymphocyte % 5.9 % (19-41); Mean Corp Hgb Conc 34.6 g/dL (32-36); Mean Corpuscular Hgb 26.9 pg (27.0-32.0); Mean Corpuscular Volume 77.6 fL (81-99); Mean Platelet Vol. 10.2 fl (6.2-12.0); Monocyte% 3.7 % (0-10); NRBC Flagged by Analyzer 0 % (0-5); Neutrophil # 7.24 X10^3/uL (2.7-7.7); Neutrophil % 89.1 % (47-70); POSITIVE COUNT YES; POSITIVE DIFFERENTIAL YES; POSITIVE MORPHOLOGY YES; Platelet Count 96 K/mm3 (150-450); RBC Distribution Width CV 13.7 % (11.6-14.6); RBC Distribution Width SD 38.5 fl (35.1-43.9); Red Blood Count 4.28 M/mm3 (4.2-5.4); White Blood Count 8.1 K/mm3 (4.4-11.0)
[2022-12-10] MEDS: Insulin Lispro 100 UNIT/ML INSULN.PEN SC (06:32)
[2022-12-10 06:37] LABS: Differential Indicated SCAN CRITERIA MET
[2022-12-10 06:52] LABS: AST(SGOT) 18 U/L (15-37); Alanine Aminotransfer ALT/SGPT 13 U/L (13-56); Albumin, Serum 2.5 g/dL (3.2-5.0); Alkaline Phosphatase 85 U/L (45-117); Anion Gap 6 (5-15); BUN 7 mg/dL (7-18); BUN/Creat Ratio 12.5 RATIO (10-20); Bilirubin, Direct 0.52 mg/dL (0.00-0.30); Calcium,Total 7.7 mg/dL (8.5-10.1); Chloride 102 mmol/L (98-107); Creatinine, Serum 0.56 mg/dL (0.55-1.02); EST Glomerular Filtration Rate 120 mL/min (>60); Est Glom Filt Rate - Afr Amer 145 mL/min (>60); Estimated Creatinine Clearance 98.02 ml/min; Globulin 3.7 g/dL (2.2-4.2); Glucose 161 mg/dL (74-106); Potassium 3.5 mmol/L (3.5-5.1); Protein, Total 6.2 g/dL (6.4-8.2); Sodium Level 130 mmol/L (136-145)
[2022-12-10] MEDS: SUMAtriptan 6 MG/0.5 ML Vial SC ×2 (07:00→23:09)
[2022-12-10 07:01] LABS: Differential Comment SCANNED
[2022-12-10 07:25] LABS: Bedside Glucose 170 mg/dL (74-106)
[2022-12-10] MEDS: metFORMIN HCl 500 MG Tablet PO (08:33)
[2022-12-10] MEDS: oxyCODONE 5 MG Tablet 10 MG PO ×2 (08:53→17:01)
[2022-12-10] MEDS: Acetaminophen 325 MG Tablet 650 MG PO ×2 (08:54→15:40)
[2022-12-10] MEDS: 0.9% Saline Lock 10 ML Syringe IV ×2 (08:55→15:00)
[2022-12-10] MEDS: 0.9% Normal Saline 1,000 ML 100 ML IV (08:56)
[2022-12-10] MEDS: Mirabegron 50 MG TAB.ER.24H PO (09:00)
[2022-12-10] MEDS: Citalopram 40 MG TABLET PO (09:00)
[2022-12-10] MEDS: Tacrolimus Anhydrous 1 MG Capsule 2 MG PO (09:01)
[2022-12-10] MEDS: ENTECAVIR 0.5 MG TABLET PO (09:01)
[2022-12-10] MEDS: Mycophenolate Mofetil 250 MG Capsule PO (09:01)
[2022-12-10] MEDS: carBAMazepine 200 MG Tablet 100 MG PO (09:02)
[2022-12-10] MEDS: Calcium Carbonate 500 MG Tablet 1000 MG PO ×2 (11:14→15:39)
[2022-12-10 11:16] LABS: Bedside Glucose 134 mg/dL (74-106)
--- NOTE | 2022-12-10 14:53 | CASEMGMT ---
LOUISE CM in to discuss DUGAN form with patient. RN CM explained DUGAN form, patient voiced understanding. Pt signed form and filed in chart. Pt provided with a copy of signed DUGAN form. Patient had no further questions or concerns at this time.
[2022-12-10] MEDS: Ondansetron 4 MG/2 ML Vial IV (15:00)
[2022-12-10 17:31] LABS: Bedside Glucose 156 mg/dL (74-106)
--- NOTE | 2022-12-10 17:53 | PN.HOSP_ITS ---
Reason for Visit Reason for Visit: Diagnoses Pneumonia, unspecified organism (12/09/22) Subjective Subjective Patient was seen and examined today, she tried to contact her clinical dietetic technician to see her in the hospital today, nursing explained to her that this was not the pathway to obtain a consult for her care. Patient is worried about her liver although her liver enzymes are normal. I contacted gastroenterology today and they will see her in consultation. Patient also had an episode of vomiting today, I decided to make her n.p.o. and increase her IV fluids. Patient's white blood cell count remains normal, her high temperature today was 99.5. Objective Data Objective Data Vital Signs: Vital Signs Temp Pulse Resp BP Pulse Ox O2 Del Method 99.5 F H 107 H 16 154/87 H 96 Room Air 12/10/22 12:12/10/22 12:12/10/22 12:12/10/22 12:12/10/22 12:12/10/22 16:00 Oxygen Delivery Method Room Air Weight: 68.538 kg Body Mass Index (BMI) 25.9 Intake & Output: Intake and Output for Last 24 Hours 12/08/22 12/09/22 12/10/22 23:59 23:59 23:59 Intake Total 3016.66 / 3016.66 2125.00 / 2125.00 Output Total 300 / 300 Balance 3016.66 / 3016.66 1825.00 / 1825.00 Lab / Micro Data Result Diagrams: 12/10/22 05:25 12/10/22 05:25 Labs: Laboratory Results - last 24 hr 12/09/22 22:44: POC Glucose 235 H 12/09/22 22:49: Lactic Acid 1.1 12/10/22 05:25: WBC 8.1, RBC 4.28, Hgb 11.5 L, Hct 33.2 L, MCV 77.6 L, MCH 26.9 L, MCHC 34.6, RDW Std Deviation 38.5, RDW Coeff of Nicole 13.7, Plt Count 96 L, MPV 10.2, Immature Gran % (Auto) 1.100 H, Neut % (Auto) 89.1 H, Lymph % (Auto) 5.9 L , [place] % (Auto) 3.7, Eos % (Auto) 0.0, Baso % (Auto) 0.2, Absolute Neuts (auto) 7.2, Absolute Lymphs (auto) 0.48 L, Nucleated RBC % 0, Differential Comment SCANNED 12/10/22 05:25: Sodium 130 L, Potassium 3.5, Chloride 102, Carbon Dioxide 22.0, Anion Gap 6, BUN 7, Creatinine 0.56, Estim Creat Clear Calc 98.02, Est GFR (MDRD) Af Amer 145, Est GFR (MDRD) Non-Af 120, BUN/Creatinine Ratio 12.5, Glucose 161 H, Calcium 7.7 L, Total Bilirubin 0.90, Direct Bilirubin 0.52 H, AST 18, ALT 13, Alkaline Phosphatase 85, Total Protein 6.2 L, Albumin 2.5 L, Globulin 3.7 12/10/22 06:32: POC Glucose 170 H 12/10/22 10:56: POC Glucose 134 H 12/10/22 17:12: POC Glucose 156 H Physical Exam Narrative alert, oriented x3, no apparent distress and average body habitus General Appearance: cooperative, well kempt and well developed Orientation / Consciousness: awake, oriented to person, oriented to place and oriented to time HEENT normocephalic, head/scalp atraumatic, hearing grossly normal bilaterally and moist oral mucous membranes Eyes PERRL, EOMs intact bilaterally and conjunctivae normal Neck supple, no JVD, thyroid normal and no carotid bruits General: trachea midline Resp normal respiratory effort, no retractions and no use of accessory muscles Resp Narrative: Breath sounds are diminished at the bases bilaterally Auscultation: Negative for rales, rhonchi or wheezes Cardio regular rate, regular rhythm, S1 normal heart sound, S2 normal heart sound, no murmurs, no rub and no gallops GI normal to inspection, nondistended, normoactive bowel sounds, soft to palpation, non-tender and non-distended Extremity no clubbing, cyanosis or edema Skin no rashes or lesions noted General Skin Exam: no breakdown Neuro oriented x3, CN's II-XII intact bilaterally, moves all extremities, no focal motor deficits and no sensory deficits noted Sensorium / Orientation: awake, alert, oriented to person, oriented to place and oriented to time Speech: speech normal Psych affect normal Assessment & Plan Assessment/Plan (1) Pneumonia: PLAN: Plan 1. Bilateral lower lobe community-acquired pneumonia-continue IV Rocephin and Zithromax #2 history of remote liver transplant-patient will remain on her home medications, patient has requested consultation from gastroenterology and I have written for it. 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 Patient has an MRI of the lumbar spine in the medical record in 2021 which shows multilevel disc disease. Patient will be given pain medications as necessary for comfort #4 chronic depression-patient will remain on her home medications #5 type 2 diabetes-patient's blood sugars will be monitored, sliding scale insu arti will be used as needed #6 chronic cirrhosis-patient has Jewell cirrhosis status post liver transp lantation, patient's liver enzymes are normal #7 nausea and vomiting-etiology unclear, I have made the patient n.p.o. and increased patient's IV fluids. Total clinical time spent by myself addressing the patient's medical issues, reviewing all of her data, and collaborating with patient's care team: 35-minute Charges/Coding Visit Charges Inpatient E&M: 04604 Subs Hosp L2
[2022-12-10] MEDS: 0.9% Normal Saline 1,000 ML 125 ML IV (21:45)
[2022-12-10 23:45] LABS: Bedside Glucose 151 mg/dL (74-106)
[2022-12-11] MEDS: Acetaminophen 325 MG Tablet 650 MG PO ×3 (02:28→14:46)
[2022-12-11 07:01] LABS: Bedside Glucose 125 mg/dL (74-106)
[2022-12-11 07:16] LABS: Absolute Lymphocyte Count 0.89 X10^3/uL (0.83-4.51); Absolute Neutrophil Count 5.5 X10^3/uL (2.0-7.7); Basophil# 0.01 X10^3/uL; Basophil% 0.1 % (0-1); Hematocrit 29.6 % (37-47); Hemoglobin 10.4 g/dL (12.0-15.0); Lymphocyte # 0.89 X10^3/ul (0.83-4.51); Lymphocyte % 13.2 % (19-41); Mean Corp Hgb Conc 35.1 g/dL (32-36); Mean Corpuscular Hgb 27.2 pg (27.0-32.0); Mean Corpuscular Volume 77.3 fL (81-99); Mean Platelet Vol. 10.3 fl (6.2-12.0); Monocyte% 4.4 % (0-10); NRBC Flagged by Analyzer 0 % (0-5); Neutrophil # 5.51 X10^3/uL (2.7-7.7); Neutrophil % 81.6 % (47-70); POSITIVE COUNT YES; Platelet Count 88 K/mm3 (150-450); RBC Distribution Width CV 13.9 % (11.6-14.6); RBC Distribution Width SD 39.5 fl (35.1-43.9); Red Blood Count 3.83 M/mm3 (4.2-5.4); White Blood Count 6.8 K/mm3 (4.4-11.0)
[2022-12-11 07:42] LABS: ALB/GLOB Ratio 0.6 RATIO (0.9-2.4); AST(SGOT) 19 U/L (15-37); Alanine Aminotransfer ALT/SGPT 12 U/L (13-56); Albumin, Serum 2.3 g/dL (3.2-5.0); Alkaline Phosphatase 80 U/L (45-117); Anion Gap 8 (5-15); BUN 8 mg/dL (7-18); BUN/Creat Ratio 15.2 RATIO (10-20); Calcium,Total 7.9 mg/dL (8.5-10.1); Chloride 105 mmol/L (98-107); Creatinine, Serum 0.53 mg/dL (0.55-1.02); EST Glomerular Filtration Rate 128 mL/min (>60); Est Glom Filt Rate - Afr Amer 154 mL/min (>60); Estimated Creatinine Clearance 103.57 ml/min; Globulin 3.6 g/dL (2.2-4.2); Glucose 119 mg/dL (74-106); Potassium 3.3 mmol/L (3.5-5.1); Protein, Total 5.9 g/dL (6.4-8.2); Sodium Level 134 mmol/L (136-145)
[2022-12-11 07:58] VITALS: O2SAT 95
[2022-12-11 08:02] LABS: Erythrocyte Sedimentation Rate 18 mm/hr (0-30)
[2022-12-11 08:05] LABS: LDH 228 U/L (84-246)
[2022-12-11 08:11] LABS: International Normalized Ratio 1.2; Prothrombin Time (Protime)PT. 15.3 SECONDS (11.7-14.9)
[2022-12-11] MEDS: carBAMazepine 200 MG Tablet 100 MG PO (08:11)
[2022-12-11] MEDS: Mirabegron 50 MG TAB.ER.24H PO (08:11)
[2022-12-11] MEDS: Tacrolimus Anhydrous 1 MG Capsule 2 MG PO (08:11)
[2022-12-11] MEDS: 0.9% Normal Saline 1,000 ML 75 ML IV (08:11)
[2022-12-11] MEDS: metFORMIN HCl 500 MG Tablet PO (08:12)
[2022-12-11] MEDS: Citalopram 40 MG TABLET PO (08:12)
[2022-12-11] MEDS: ENTECAVIR 0.5 MG TABLET PO (08:12)
[2022-12-11] MEDS: Mycophenolate Mofetil 250 MG Capsule PO (08:12)
[2022-12-11 08:15] VITALS: BP 147/78; PULSE 101; RESP 18; TEMP 38.2; O2SAT 95
[2022-12-11] MEDS: Potassium Chloride 10mEq/100mL 10 MEQ/100 ML IV.SOLN. 100 MEQ IV BOLUS (08:36)
[2022-12-11] MEDS: Calcium Carbonate 500 MG Tablet 1000 MG PO (08:41)
[2022-12-11] MEDS: oxyCODONE 5 MG Tablet 10 MG PO (10:18)
[2022-12-11] MEDS: SUMAtriptan 6 MG/0.5 ML Vial SC (10:19)
[2022-12-11 10:27] VITALS: TEMP 36.9
[2022-12-11 11:21] LABS: Bedside Glucose 139 mg/dL (74-106)
--- NOTE | 2022-12-11 11:46 | DCINST_ITS ---
Discharge Instructions Diet Discharge Diet: No restrictions Activity Discharge Activity: Return to Normal Activity Weight Bearing Status: Full weight bearing Follow Up Care Test Results: Test results from this visit will be discussed in further detail at your follow- up appointment, if applicable. Discharge Plan Admission Admit Date/Time: 12/09/22 12:16 Primary Reason for Your Visit: Pneumonia Attending Provider: Ronnie Contreras Primary Care Provider: Geeta Odell Discharge Orders/Prescriptions Prescriptions: New levofloxacin 750 mg tablet 750 mg PO DAILY Qty: 5 0RF Rx Instructions: Start medication on 12/12/2022 Continued tacrolimus [Prograf] 5 mg capsule 2 mg PO BID mycophenolate mofetil [CellCept] 250 mg capsule 250 mg PO BID zolpidem [Ambien] 10 mg tablet 10 mg PO QHS carbamazepine 100 mg tablet,chewable 100 mg PO BID Qty: 60 4RF citalopram 40 mg tablet 40 mg PO DAILY 30 Days Qty: 30 2RF albuterol sulfate 1 INHALER inhaler 1 - 2 puff inhalation Q4H PRN PRN (Reason: breathing) entecavir 0.5 MG tablet 0.5 mg PO DAILY metformin 500 MG tablet 500 mg PO DAILY hydroxyzine HCl 25 mg tablet 25 mg PO Q4H PRN PRN (Reason: Anxiety) Patient Comments: TAKE 1 TABLET BY MOUTH UP TO 6 TIMES DAILY NEEDED Myrbetriq 50 mg tablet extended release 24 hr 50 mg PO DAILY Patient Comments: Take 1 tablet orally once daily sumatriptan succinate 100 mg tablet 100 mg PO Q2H PRN MDD 200 PRN (Reason: Migraine Headache) Patient Comments: Take 1 tablet by mouth every 2 hours as needed for headache up to 2 tablets/day methocarbamol 500 mg tablet See Rx Instructions PO .COMPLEX Qty: 120 1RF Rx Instructions: One to two tablets orally BID prn pain ropinirole 1 mg tablet 1.5 mg PO QHS Qty: 45 3RF tizanidine 4 mg tablet See Rx Instructions PO .COMPLEX Qty: 90 2RF Rx Instructions: Take 2 tablets orally at bedtime and 1/2 tablet twice a day as needed for muscle spasms. Referrals / Follow Up: Geeta Odell MD [Primary Care Provider] - Within 2 Weeks Disposition Disposition (needs filled in before D/C Order can be placed): Home, Self Care
--- NOTE | 2022-12-11 11:46 | CON.PCM.GI_ITS ---
HPI Consult Data Date of Consult: 12/11/22 HPI Narrative Reason for Consultation: Nausea vomiting HPI Narrative: STEPHANE CABALLERO, is a 57 F who presents from home with worsening fever, chills and nausea. She was admitted to the hospital and was discovered to have unilateral infiltrate in the lungs possibly secondary to pneumonia. She has been intermittently spiking fevers. Today she is 100.3. She has been on medical therapy for community-acquired pneumonia. She has not missed any doses of her medicine except for yesterday. Laboratory analysis showed normal LFTs with normal bilirubin is 0.8 in alkaline phosphatase of 140 AST of 10 ALT of 15. She does not drink any alcohol. [facility] Medical History (Updated 12/09/22 @ 20:[address] Ronnie Contreras, DO) Alcohol use Anxiety Arthritis Asthma Back pain Blackout Bladder disease Cancer Cirrhosis Clostridium difficile colitis COVID CVA (cerebral vascular accident) Diabetes Dietary restriction DVT (deep venous thrombosis) DVT (deep venous thrombosis) Epilepsy Esophageal varices Fatigue Gastric reflux Gastric ulcer Hiatal hernia History of echocardiogram History of IBS History of pain when walking History of stress test History of ulceration Immunocompromised state due to drug therapy Leg cramps Major depressive disorder Migraine Migraine headache MARMOLEJO (nonalcoholic steatohepatitis) Neuropathy Non-smoker PTSD (post-traumatic stress disorder) Restless legs Seasonal allergies Seizures Serum ammonia increased Shortness of breath on exertion TIA (transient ischemic attack) Wears contact lenses Wears glasses Home Medications albuterol sulfate 90 mcg/actuation aerosol inhaler 1 - 2 puff inhalation Q4H PRN PRN breathing 02/08/18 [History Last Taken 12/07/22] entecavir 0.5 mg tablet 0.5 mg PO DAILY hepatitis B 12/25/18 [History Last Taken 12/07/22] mycophenolate mofetil 250 mg capsule (CellCept) 250 mg PO BID antirejection 02/17/20 [History Last Taken 12/07/22] tacrolimus 5 mg capsule, immediate-release (Prograf) 2 mg PO BID antirejection 02/17/20 [History Last Taken 12/07/22] zolpidem 10 mg tablet (Ambien) 10 mg PO QHS sleep 02/17/20 [History Last Taken 12/07/22] metformin 500 mg tablet 500 mg PO DAILY diabetes 09/12/20 [History Last Taken 12/07/22] hydroxyzine HCl 25 mg tablet 25 mg PO Q4H PRN PRN Anxiety 03/12/21 [History Last Taken 12/07/22] carbamazepine 100 mg chewable tablet 100 mg PO BID #60 tabs 05/15/22 [Rx Last Taken 12/07/22] methocarbamol 500 mg tablet See Rx Instructions PO .COMPLEX #120 tabs 06/03/22 [Rx Last Taken 12/07/22] ropinirole 1 mg tablet 1.5 mg (1.5 x 1 mg) PO QHS #45 tabs 10/21/22 [Rx Last Taken 12/07/22] tizanidine 4 mg tablet See Rx Instructions PO .COMPLEX #90 tabs 10/22/22 [Rx Last Taken 12/07/22] citalopram 40 mg tablet 40 mg PO DAILY 30 days #30 tabs 11/19/22 [Rx Last Taken 12/07/22] mirabegron 50 mg tablet,extended release 24 hr (Myrbetriq) 50 mg PO DAILY . 12/09/22 [History Last Taken 12/07/22] sumatriptan succinate 100 mg tablet 100 mg PO Q2H PRN PRN Migraine Headache 12/09/22 [History Last Taken Unknown] levofloxacin 750 mg tablet 750 mg PO DAILY #5 tabs 12/11/22 [Rx Last Taken Unknown] Allergy/AdvReac Type Severity Reaction Status Date / Time sulfamethoxazole Allergy Fever and Verified 11/19/22 12:58 [From Bactrim] skin rash trimethoprim [From Bactrim] Allergy Fever and Verified 11/19/22 12:58 skin rash diphenhydramine HCl AdvReac climb the Verified 11/19/22 12:58 [From Benadryl] rose lorazepam [From Ativan] AdvReac Climb the Verified 11/19/22 12:58 rose prochlorperazine edisylate AdvReac climb the Verified 11/19/22 12:58 [From Compazine] rose prochlorperazine maleate AdvReac climb out Verified 11/19/22 12:58 [From Compazine] of my body promethazine HCl AdvReac climb the Verified 11/19/22 12:58 [From Phenergan] rose topiramate [From Topamax] AdvReac Other Verified 11/19/22 12:58 tramadol AdvReac climb the Verified 11/19/22 12:58 rose Family History Mother Heart disease COPD (chronic obstructive pulmonary disease) Father Chronic alcoholism Surgical History (Updated 12/09/22 @ 14:13 by Selam Terrell) H/O liver transplant History of lumbar spinal fusion Hx of breast reduction, elective Hx of cholecystectomy Hx of colonoscopy Hx of dilation and curettage Hx of esophagogastroduodenoscopy Hx of hemorrhoidectomy Hx of hysterectomy Hx of left knee surgery Hx of repair of right rotator cuff Hx of right knee surgery Hx of tubal ligation Hx of ventral hernia repair Liver transplant recipient Social History Smoking Status: Never smoker second hand exposure: No alcohol intake: former substance use type: does not use what type of physical activity do you participate in: walking Lab / Micro Data 12/11/22 06:05 12/11/22 06:05 Labs: Laboratory Results - last 24 hr 12/10/22 17:12: POC Glucose 156 H 12/10/22 23:07: POC Glucose 151 H 12/11/22 06:05: WBC 6.8, RBC 3.83 L, Hgb 10.4 L, Hct 29.6 L, MCV 77.3 L, MCH 27.2, MCHC 35.1, RDW Std Deviation 39.5, RDW Coeff of Nicole 13.9, Plt Count 88 L, MPV 10.3, Immature Gran % (Auto) 0.700, Neut % (Auto) 81.6 H, Lymph % (Auto) 13.2 L, [place] % (Auto) 4.4, Eos % (Auto) 0.0, Baso % (Auto) 0.1, Absolute Neuts (auto) 5.5, Absolute Lymphs (auto) 0.89, Nucleated RBC % 0, ESR 18, Sodium 134 L , Potassium 3.3 L, Chloride 105, Carbon Dioxide 21.0, Anion Gap 8, BUN 8, Creatinine 0.53 L, Estim Creat Clear Calc 103.57, Est GFR (MDRD) Af Amer 154, Est GFR (MDRD) Non-Af 128, BUN/Creatinine Ratio 15.2, Glucose 119 H, Calcium 7.9 L, Total Bilirubin 0.60, AST 19, ALT 12 L, Alkaline Phosphatase 80, Lactate Dehydrogenase 228, C-React Prot Ext Range 144.00 H, Total Protein 5.9 L, Albumin 2.3 L, Globulin 3.6, Albumin/Globulin Ratio 0.6 L 12/11/22 06:40: POC Glucose 125 H 12/11/22 07:45: PT 15.3 H, INR 1.2 12/11/22 11:02: POC Glucose 139 H Micro: Microbiology 12/09/22 15:02 Blood Culture (Wb) - Left Wrist Blood Culture - Preliminary No growth in 48 hours. 12/09/22 15:08 Blood Culture (Wb) - Right Wrist Blood Culture - Preliminary No growth in 48 hours. Assessment & Plan Assessment/Plan (1) Pneumonia: PLAN: Currently being managed by hospitalist service. (2) Nausea & vomiting: PLAN: Exacerbation of already known mild gastroparesis causing her symptoms. I will draw tacrolimus levels along with serologies for EBV, CMV and parvovirus due to history of liver transplant on tacrolimus therapy. Charges/Coding Visit Charges Inpatient E&M: 48235 Init Hosp L3
--- NOTE | 2022-12-11 11:55 | PCM.DC.SUM ---
Providers Date of Admission: 12/09/22 Date of Discharge: 12/11/22 Primary Care Physician: Dr. Geeta Odell MD Consultations 12/10/22 17:27 Consult: Gastroenterology Routine Consulting Provider: Marj Gastroenter[facility] Reason for Consult: nausea EMERGENT Consult: No MD Notified: Yes Date Notified: 12/10/22 Time Notified: 17:29 Method of Notification: Verbal Reason For Visit: RLL PNEUMONIA, HYPONATREMIA Diagnosis Discharge Diagnosis (1) Pneumonia: Status: Acute Code(s): J18.9 - Pneumonia, unspecified organism (2) Nausea & vomiting: Status: Acute Code(s): R11.2 - Nausea with vomiting, unspecified Plan 1. Bilateral lower lobe community-acquired pneumonia-continue IV Rocephin and Zithromax #2 history of remote liver transplant-patient will remain on her home medications, patient has requested consultation from gastroenterology and I have written for it. 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 Patient has an MRI of the lumbar spine in the medical record in 2021 which shows multilevel disc disease. Patient will be given pain medications as necessary for comfort #4 chronic depression-patient will remain on her home medications #5 type 2 diabetes-patient's blood sugars will be monitored, sliding scale insulin will be used as needed #6 chronic cirrhosis-patient has [place] cirrhosis status post liver transplantation, patient's liver enzymes are normal #7 nausea and vomiting-etiology unclear, I have made the patient n.p.o. and increased patient's IV fluids. #8 migraine cephalgia-patient was given Imitrex #9 hyponatremia #10 hypokalemia Total clinical time spent by myself addressing the patient's medical issues, reviewing all of her data, and collaborating with patient's care team: 35-minute Medications at Discharge Home Medications albuterol sulfate 90 mcg/actuation aerosol inhaler 1 - 2 puff inhalation Q4H PRN PRN breathing 02/08/18 entecavir 0.5 mg tablet 0.5 mg PO DAILY hepatitis B 12/25/18 mycophenolate mofetil 250 mg capsule (CellCept) 250 mg PO BID antirejection 02/17/20 tacrolimus 5 mg capsule, immediate-release (Prograf) 2 mg PO BID antirejection 02/17/20 zolpidem 10 mg tablet (Ambien) 10 mg PO QHS sleep 02/17/20 metformin 500 mg tablet 500 mg PO DAILY diabetes 09/12/20 hydroxyzine HCl 25 mg tablet 25 mg PO Q4H PRN PRN Anxiety 03/12/21 carbamazepine 100 mg chewable tablet 100 mg PO BID #60 tabs 05/15/22 methocarbamol 500 mg tablet See Rx Instructions PO .COMPLEX #120 tabs 06/03/22 ropinirole 1 mg tablet 1.5 mg (1.5 x 1 mg) PO QHS #45 tabs 10/21/22 tizanidine 4 mg tablet See Rx Instructions PO .COMPLEX #90 tabs 10/22/22 citalopram 40 mg tablet 40 mg PO DAILY 30 days #30 tabs 11/19/22 mirabegron 50 mg tablet,extended release 24 hr (Myrbetriq) 50 mg PO DAILY . 12/09/22 sumatriptan succinate 100 mg tablet 100 mg PO Q2H PRN PRN Migraine Headache 12/09/22 levofloxacin 750 mg tablet 750 mg PO DAILY #5 tabs 12/11/22 Hospital Course Operations None Procedures None Summary of Care Provided Minutes Spent on Discharge: 32 Hospital Course: Patient was seen in the emergency room at [facility] with a chief complaint of fever, chills, and some shortness of breath for approximately 2 to 3 days prior to being seen in the emergency room. Patient is a liver transplant patient takes immunosuppressant meds, work-up in the emergency room included an abdominal CT which showed evidence of bilateral lower lobe pneumonia, chemistry profile showed a low sodium at 124 and potassium was 3.3. Patient's labs showed a normal white blood cell count. Patient was admitted to [place] [id number] for community-acquired pneumonia, she was not hypoxic during her hospitalization, she was given IV Zithromax and Rocephin, blood cultures were negative during her hospitalization. Patient had migraine cephalgia and was given medications for migraine, she also was given IV fluids. On 12/11/2022, patient was seen and examined: On examination she appeared in good health and spirits, she does not appear to be in any distress. Vital signs as documented. Skin warm and dry and without overt rashes. Neck without JVD, thyroid appears normal, trachea is midline, neck is supple. Lungs clear, normal air movement was noted. Heart exam notable for regular rhythm, normal sounds and absence of murmurs, rubs or gallops. Abdomen unremarkable and without evidence of organomegaly, masses, or abdominal aortic enlargement, bowel sounds are present in all 4 quadrants, no abdominal tenderness was noted. Extremities nonedematous, no cyanosis was noted, no clubbing was noted. Neuro: Cranial nerves II through XII are grossly intact, no focal motor deficits were noted, sensation to light touch and pinprick is intact, motor exam 5/5 throughout. Psych: Patient is alert and oriented x3, she does not appear anxious or depressed, she does not appear agitated. On 12/11/2022, patient was seen and examined and felt to be in stable condition for discharge home. Weight / BMI Weight Weight: 68.538 kg Body Mass Index (BMI) 25.9 ABG / Lab / Microbiology Data 12/11/22 06:05 12/11/22 06:05 Laboratory: Laboratory Results - last 24 hr 12/10/22 17:12: POC Glucose 156 H 12/10/22 23:07: POC Glucose 151 H 12/11/22 06:05: WBC 6.8, RBC 3.83 L, Hgb 10.4 L, Hct 29.6 L, MCV 77.3 L, MCH 27.2, MCHC 35.1, RDW Std Deviation 39.5, RDW Coeff of Nicole 13.9, Plt Count 88 L, MPV 10.3, Immature Gran % (Auto) 0.700, Neut % (Auto) 81.6 H, Lymph % (Auto) 13.2 L, [place] % (Auto) 4.4, Eos % (Auto) 0.0, Baso % (Auto) 0.1, Absolute Neuts (auto) 5.5, Absolute Lymphs (auto) 0.89, Nucleated RBC % 0, ESR 18, Sodium 134 L, Potassium 3.3 L, Chloride 105, Carbon Dioxide 21.0, Anion Gap 8, BUN 8, Creatinine 0.53 L, Estim Creat Clear Calc 103.57, Est GFR (MDRD) Af Amer 154, Est GFR (MDRD) Non-Af 128, BUN/Creatinine Ratio 15.2, Glucose 119 H, Calcium 7.9 L, Total Bilirubin 0.60, AST 19, ALT 12 L, Alkaline Phosphatase 80, Lactate Dehydrogenase 228, C-React Prot Ext Range 144.00 H, Total Protein 5.9 L, Albumin 2.3 L, Globulin 3.6, Albumin/Globulin Ratio 0.6 L 12/11/22 06:40: POC Glucose 125 H 12/11/22 07:45: PT 15.3 H, INR 1.2 12/11/22 11:02: POC Glucose 139 H Microbiology: Microbiology 12/09/22 15:02 Blood Culture (Wb) - Left Wrist Blood Culture - Preliminary No growth in 48 hours. 12/09/22 15:08 Blood Culture (Wb) - Right Wrist Blood Culture - Preliminary No growth in 48 hours. D/C Instructions Discharge Diet: No restrictions Weight Bearing Status: Full weight bearing Meaningful Use Info Meaningful Use Diagnoses (Choose all that apply): None applicable Discharge Plan Admission Admit Date/Time: 12/09/22 12:16 Primary Reason for Your Visit: Pneumonia Attending Provider: Ronnie Contreras Primary Care Provider: Geeta Odell Discharge Orders/Prescriptions Prescriptions: New levofloxacin 750 mg tablet 750 mg PO DAILY Qty: 5 0RF Rx Instructions: Start medication on 12/12/2022 Continued tacrolimus [Prograf] 5 mg capsule 2 mg PO BID mycophenolate mofetil [CellCept] 250 mg capsule 250 mg PO BID zolpidem [Ambien] 10 mg tablet 10 mg PO QHS carbamazepine 100 mg tablet,chewable 100 mg PO BID Qty: 60 4RF citalopram 40 mg tablet 40 mg PO DAILY 30 Days Qty: 30 2RF albuterol sulfate 1 INHALER inhaler 1 - 2 puff inhalation Q4H PRN PRN (Reason: breathing) entecavir 0.5 MG tablet 0.5 mg PO DAILY metformin 500 MG tablet 500 mg PO DAILY hydroxyzine HCl 25 mg tablet 25 mg PO Q4H PRN PRN (Reason: Anxiety) Patient Comments: TAKE 1 TABLET BY MOUTH UP TO 6 TIMES DAILY NEEDED Myrbetriq 50 mg tablet extended release 24 hr 50 mg PO DAILY Patient Comments: Take 1 tablet orally once daily sumatriptan succinate 100 mg tablet 100 mg PO Q2H PRN MDD 200 PRN (Reason: Migraine Headache) Patient Comments: Take 1 tablet by mouth every 2 hours as needed for headache up to 2 tablets/day methocarbamol 500 mg tablet See Rx Instructions PO .COMPLEX Qty: 120 1RF Rx Instructions: One to two tablets orally BID prn pain ropinirole 1 mg tablet 1.5 mg PO QHS Qty: 45 3RF tizanidine 4 mg tablet See Rx Instructions PO .COMPLEX Qty: 90 2RF Rx Instructions: Take 2 tablets orally at bedtime and 1/2 tablet twice a day as needed for muscle spasms. Referrals / Follow Up: Geeta Odell MD [Primary Care Provider] - Within 2 Weeks Disposition Disposition (needs filled in before D/C Order can be placed): Home, Self Care Charges/Coding Visit Charges Inpatient E&M: 37292 Disch Hosp >30min
[2022-12-11 14:10] VITALS: BP 144/80; PULSE 99; RESP 18; TEMP 37.7; O2SAT 98
[2022-12-11 14:45] VITALS: BP 149/87; PULSE 95; RESP 18; TEMP 36.4; O2SAT 95
[2022-12-17 12:08] LABS: CMV Acute Antibody IgM < 30.0 AU/mL (0.0-29.9); CMV Antibody IgG > 10.00 U/mL (0.00-0.59); CMV by PCR Negative (Negative); EBV Acute VCA IgM < 36.0 U/mL (0.0-35.9); EBV Nuclear Antigen IgG > 600.0 U/mL (0.0-17.9); EBV-VCA IgG > 600.0 U/mL (0.0-17.9); PARVOVIRUS B19 IGG 2.9 index (0.0-0.8); PARVOVIRUS B19 IGM 0.2 index (0.0-0.8); Tacrolimus (FK506) 3.4 ng/mL (2.0-20.0)
== END 2022-12-11 15:54 | disposition home or self-care (01) ==
LOC: ED 11:36 → MS3 12:18
PROVIDERS: Family Medicine; Internal Medicine Gastroenterology; Admitting Provider Internal Medicine; Emergency Provider Emergency Medicine; PCP Family Medicine; Visit Provider Internal Medicine
DX: J18.9 Pneumonia, unspecified organism (principal); Z94.4 Liver transplant status; E11.40 Type 2 diabetes mellitus with diabetic neuropathy, unspecified; G40.909 Epilepsy, unspecified, not intractable, without status epilepticus; E87.6 Hypokalemia; K57.30 Diverticulosis of large intestine without perforation or abscess without bleeding; K76.0 Fatty (change of) liver, not elsewhere classified; E87.1 Hypo-osmolality and hyponatremia; G43.909 Migraine, unspecified, not intractable, without status migrainosus; Z79.84 Long term (current) use of oral hypoglycemic drugs; Z86.16 Personal history of COVID-19; F43.10 Post-traumatic stress disorder, unspecified; F32.A Depression, unspecified; K75.81 Nonalcoholic steatohepatitis (NASH); Z79.899 Other long term (current) drug therapy
CPT/HCPCS: 36415; 71046; 74177; 80048; 80053; 80076; 80197; 81001; 82962; 83605; 83615; 83690; 85025; 85610; 85652; 86140; 86644; 86645; 86664; 86665; 86747; 87040; 87496; 94668; 96361; 96365; 96366; 96367; 96372; 96375; 96376; 97802; 99221; 99252; 99282; J7030; J7040; J7050; Q9967; A4216; G0378; G0463; J0696; J2405; J3030

== ENCOUNTER → 2023-01-01 | Outpatient (CLI) | payer MEDICARE, MEDICAID, SELFPAY ==
[2023-01-01 11:12] LABS: Absolute Lymphocyte Count 1.42 X10^3/uL (0.83-4.51); Absolute Neutrophil Count 3.6 X10^3/uL (2.0-7.7); Basophil# 0.02 X10^3/uL; Basophil% 0.4 % (0-1); Eosinophil# 0.07 X10^3/uL; Eosinophils% 1.2 % (0-5); Hematocrit 39.1 % (37-47); Hemoglobin 12.7 g/dL (12.0-15.0); Lymphocyte # 1.42 X10^3/ul (0.83-4.51); Lymphocyte % 25.2 % (19-41); Mean Corp Hgb Conc 32.5 g/dL (32-36); Mean Corpuscular Hgb 27.1 pg (27.0-32.0); Mean Corpuscular Volume 83.4 fL (81-99); Monocyte% 8.9 % (0-10); NRBC Flagged by Analyzer 0 % (0-5); Neutrophil # 3.61 X10^3/uL (2.7-7.7); Neutrophil % 63.9 % (47-70); Platelet Count 163 K/mm3 (150-450); RBC Distribution Width SD 48.5 fl (35.1-43.9); Red Blood Count 4.69 M/mm3 (4.2-5.4); White Blood Count 5.6 K/mm3 (4.4-11.0)
[2023-01-01 12:02] LABS: ALB/GLOB Ratio 0.8 RATIO (0.9-2.4); AST(SGOT) 15 U/L (15-37); Alanine Aminotransfer ALT/SGPT 12 U/L (13-56); Albumin, Serum 3.4 g/dL (3.2-5.0); Alkaline Phosphatase 119 U/L (45-117); Anion Gap 6 (5-15); BUN 7 mg/dL (7-18); BUN/Creat Ratio 10.3 RATIO (10-20); Calcium,Total 9.1 mg/dL (8.5-10.1); Chloride 104 mmol/L (98-107); Cholesterol 182 mg/dL (200); Creatinine, Serum 0.68 mg/dL (0.55-1.02); EST Glomerular Filtration Rate 95 mL/min (>60); Est Glom Filt Rate - Afr Amer 115 mL/min (>60); Ferritin 93 ng/mL (8-252); Globulin 4.2 g/dL (2.2-4.2); Glucose 141 mg/dL (74-106); High Density Lipoprotein 43 mg/dL; Magnesium 1.7 mg/dL (1.6-2.6); Potassium 4.2 mmol/L (3.5-5.1); Protein, Total 7.6 g/dL (6.4-8.2); Sodium Level 137 mmol/L (136-145); Thyroid Stim Hormone (TSH) 1.64 uIU/mL (0.358-3.74); Triglycerides 129 mg/dL; Very Low Density Lipoprotein 26 mg/dL (5-40)
== END | disposition home or self-care (01) ==
LOC: LAB 10:12
PROVIDERS: PCP Family Medicine; Referring Provider Psychiatry & Neurology Neurology; Visit Provider Psychiatry & Neurology Neurology
DX: D64.9 Anemia, unspecified (principal); G40.909 Epilepsy, unspecified, not intractable, without status epilepticus; R53.83 Other fatigue; F32.A Depression, unspecified; E78.5 Hyperlipidemia, unspecified
CPT/HCPCS: 36415; 80053; 80061; 80156; 82728; 83540; 83735; 84443; 85025

== ENCOUNTER 2023-04-08 12:50 | Day surgery (SDC) | payer MEDICARE, SELFPAY ==
[2023-04-08 13:21] VITALS: BP 145/97; PULSE 77; RESP 17; TEMP 37; O2SAT 99; BMI 23.1
[2023-04-08] MEDS: Lactated Ringers 1,000 ML 15 ML IV (13:24)
--- NOTE | 2023-04-08 13:31 | HP.PCM_ITS ---
History and Physical Date of Admission: 04/08/23 57-year-old with past medical history of nonalcoholic steroid appetite is and cirrhosis status post orthotopic liver transplant presenting for the evaluation of esophageal dysphagia. Dysphagia is intermittent. It is associated with solid foods. She denies any chest pain or shortness of breath. She denies any hematemesis. PMH epilepsy (follows neurology), migraine (neurology), restless leg (neurology), memory loss (neurology), esophageal varices with history of multiple banding, C.Diff, pseudoseizure, fibromyalgia, MARMOLEJO stage IV s/p liver transplant on 05.16.18. CT abd/pel performed 12.01.20 with appearance of normal transplanted liver with numerable surgical clips in clare hepatis region. Mildly enlarged spleen but stable compared to 04.20.2020 imaging. *BGI established 06.07.21 for positive Cologuard test. Colonoscopy performed 06.21.21 finding diverticulosis in recto-sigmoid colon and sigmoid colon. One 5mm tubular adenoma polyp removed from cecum. OV 07.06.21 with increased heartburn and dysphagia EGD scheduled for 08.27.21 but Stephane did not attend the appointment. Rescheduled for 11.27.21 EGD 11.27.21 finding moderate Schatzki ring, Savary dilator 36F; distal esophagitis without metaplasia; gastritis; non-bleeding gastric ulcer without bleeding stigmata, focal ulceration with acute and chronic inflammation. H.Pylori negative. OV 11.27.21 with heartburn and dysphagia continued. Start nystatin swish and swallow. OV 12.13.21 with increased anxiety/stress which she feels has increased nausea and upset stomach. ? Slava Contact 01.14.22 to report that he was having increased difficulty swallowing. Barium swallow study ordered. Barium swallow study 02.05.22 WNL. OV 03.07.22 with continued dysphagia as her primary concern. Start fluconazole ? CTA abd/pel 03.15.22 noting mild, stable splenomegaly; diverticulosis. ? EGD 08.14.22 moderate Schatzki ring, Savary dilator 51F; irregular Zline, 38cm; non-bleeding gastric ulcer. H.Pylori negative. OV 09.04.22 Reports she is having difficulty with dysphagia since endoscopy with difficulty with foods and pills. Stress continues to be very high. Daughter has moved out last week to [place]. [facility] hospitalization 12.09.22-12.11.22 for management of pneumonia and N/V. ? Biochemical CRP H144, albumin L2.3.? Tacrolimus, ?WNL? CMV, EBV, Parvobirus infection historically. Neurology established noting low carbamazepine, <2 in 01.02.23. Vit B12 injections started. Reports loss of 40lbs in the last year r/t poor appetite OV 02.25.23 reports that she has had two additional rounds of pneumonia and some ringworm since hospitalization. 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 Reports additional weight loss. Feels she has an ulcer that is acting up. STEPHANE CABALLERO, is a 57 F who presents to the office today for ROS Const Constitutional: No other (6 system ROS completed with pertinent findings in the HPI otherwise normal.) Exam Const General: cooperative and healthy appearing [facility] Head: normocephalic and atraumatic Ears: hearing grossly normal bilaterally Nose: external nose normal Face and sinus: face symmetric Mouth: oral mucosae normal Throat: posterior oropharynx normal Other: Honey crusted lesions over the face and neck. Eyes General: appearance normal, both eyes and all related structures Pupils: PERRL Resp Effort & Inspection: normal respiratory effort Skin General: no rashes or lesions noted Neuro General: patient alert Psych Appearance: grossly normal Mental Status: mental status grossly normal Quality Reporting Tobacco Screening ([facility] 138) Smoking Status: Never smoker Assessment and Plan Assessment and Plan (1) Esophageal dysphagia: Status: Chronic Plan: We will give her liquid sulcrafate therapy. I told her that her esophageal dysphagia is secondary to stress at this time. She agreed with that assessment. She will also continue with pantoprazole therapy because she does have gastroesophageal reflux disease that may be contributing to her symptoms. (2) Cirrhosis: Status: Inactive Qualifiers: Hepatic cirrhosis type: unspecified hepatic cirrhosis Ascites presence: without ascites Qualified Code(s): K74.60 - Unspecified cirrhosis of liver Plan: ?Plan: [place]arm[place]jo cirrhosis status post orthotopic liver transplant on immunosuppression.? We will need to get tacrolimus levels.? She is not having any side effects and her liver function tests and LFTs have remained stable (3) Bloating: Status: Acute Plan: She has not shown any signs of decompensated liver disease. She does hve a Mildly elevated alkaline phosphatase. We will get imaging of her abdomen and pelvis (4) Leg swelling: Status: Acute Plan: We will get an echo and possibly a stress test due to her Strong family history of cardiovascular disease. Orders: Orders CBC W/Diff, Automated Today F32.A - Depression, unspecified, R13.19 - Other dysphagia Comprehensive Metabolic Profil Today R13.19 - Other dysphagia Copper, Serum or Plasma Today R13.19 - Other dysphagia Magnesium Today R13.19 - Other dysphagia Phosphorus Today R13.19 - Other dysphagia Miscellaneous Lab Procedure Today R13.19 - Other dysphagia AFP, Tumor Marker Today R13.19 - Other dysphagia KIM + Protein Elect, Serum Today R13.19 - Other dysphagia EGD 04/08/23 R13.19 - Other dysphagia Medications: New magnesium chloride 70 mg PO DAILY 30 tabs 11RF
--- NOTE | 2023-04-08 14:28 | OP.CCLET_ITS ---
04/08/2023 Geeta Odell [address] [place] [address] [place] [address] Re : Upper GI endoscopy procedure for Jazmin Sanaz Dear Dr. Odell This procedure was performed on Saturday, April 08, 2023. My impressions and recommendations are as follows: Impressions : - Moderate Schatzki ring. Dilated. - Z-line irregular, 39 cm from the incisors. Biopsied. - Normal stomach. - No gross lesions in the duodenal bulb. Recommendations : - Discharge patient to home. - Resume previous diet. - Continue present medications. - Await pathology results. My findings are described in the full procedure note, which is enclosed. If I can be of further assistance, please feel free to contact me at . Sincerely, Raoul June, 04/08/2023 2:28:13 PM This report has been signed electronically.
--- NOTE | 2023-04-08 14:28 | OP.EGD_ITS ---
Patient Name: Jazmin Yo Procedure Date: 04/08/2023 1:56 PM Date of : 1965 Age: 57 Procedure: Upper GI endoscopy Indications: Dysphagia Providers: Raoul June DO Medicines: Monitored Anesthesia Care Patient Profile: This is a 57 year old female. Refer to note in patient chart for documentation of history and physical. Patient has symptoms of acute dysphagia and dysphagia with solids. Complications: No immediate complications. Procedure: Pre-Anesthesia Assessment: - Prior to the procedure, a History and Physical was performed, and patient medications and allergies were reviewed. The patient is competent. The risks and benefits of the procedure and the sedation options and risks were discussed with the patient. All questions were answered and informed consent was obtained. Patient identification and proposed procedure were verified by the physician in the pre-procedure area. Mental Status Examination: alert and oriented. Airway Examination: normal oropharyngeal airway and neck mobility. Respiratory Examination: clear to auscultation. CV Examination: normal. Prophylactic Antibiotics: The patient does not require prophylactic antibiotics. Prior Anticoagulants: The patient has taken no anticoagulant or antiplatelet agents. After reviewing the risks and benefits, the patient was deemed in satisfactory condition to undergo the procedure. The anesthesia plan was to use monitored anesthesia care (MAC). Immediately prior to administration of medications, the patient was re-assessed for adequacy to receive sedatives. The heart rate, respiratory rate, oxygen saturations, blood pressure, adequacy of pulmonary ventilation, and response to care were monitored throughout the procedure. The physical status of the patient was re-assessed after the procedure. After obtaining informed consent, the endoscope was passed under direct vision. Throughout the procedure, the patient's blood pressure, pulse, and oxygen saturations were monitored continuously. The gastroscope was introduced through the mouth, and advanced to the second part of duodenum. The upper GI endoscopy was accomplished without difficulty. The patient tolerated the procedure well. Findings: A moderate Schatzki ring was found in the lower third of the esophagus. A guidewire was placed and the scope was withdrawn. Dilation was performed with a Savary dilator with no resistance at 60 Fr. The dilation site was examined and showed moderate improvement in luminal narrowing. Estimated blood loss was minimal. The Z-line was irregular and was found 39 cm from the incisors. Biopsies were taken with a cold forceps for histology. Verification of patient identification for the specimen was done. Estimated blood loss was minimal. The entire examined stomach was normal. No gross lesions were noted in the duodenal bulb. Impression: - Moderate Schatzki ring. Dilated. - Z-line irregular, 39 cm from the incisors. Biopsied. - Normal stomach. - No gross lesions in the duodenal bulb. Recommendation: - Discharge patient to home. - Resume previous diet. - Continue present medications. - Await pathology results. Procedure Code(s): --- Professional --- 54454, Esophagogastroduodenoscopy, flexible, transoral; with insertion of guide wire followed by passage of dilator(s) through esophagus over guide wire 65232, 59, Esophagogastroduodenoscopy, flexible, transoral; with biopsy, single or multiple CPT copyright 2021 [employer]. All rights reserved. The codes documented in this report are preliminary and upon import export agent review may be revised to meet current compliance requirements. Raoul June DO 04/08/2023 2:28:13 PM This report has been signed electronically. Number of Addenda: 0 Note Initiated On: 04/08/2023 1:56 PM
[2023-04-08 14:30] VITALS: BP 119/80; BP 145/97; PULSE 90; RESP 16; TEMP 37; O2SAT 97
[2023-04-08 14:35] VITALS: BP 116/76; BP 145/97; PULSE 89; RESP 16; O2SAT 96
[2023-04-08 14:40] VITALS: BP 131/90; BP 145/97; PULSE 89; RESP 16; O2SAT 97
[2023-04-08 14:45] VITALS: BP 144/88; BP 145/97; PULSE 86; RESP 16; TEMP 37.1; O2SAT 98
[2023-04-08 14:59] VITALS: BP 145/97
[2023-04-08 15:51] LABS: Bedside Glucose 98 mg/dL (74-106)
--- NOTE | 2023-04-08 18:14 | EGD_PTH ---
PATIENT: STEPHANE CABALLERO LOC: EN U#:[id number] AGE/SX: 57/F ROOM: RE04/08/[address]: Dr. Raoul June DO : 1965 BED: DIS: 04/08/2023 SPEC #: [id number] RECD: 04/09/23 08:21 STATUS: HINA ADAM #: [id number] RISHI: 04/08/23 18:[address]: Raoul June DEPT: SURGICAL PATHOLOGY RECD BY: Nevin Kaba ENTERED: 04/09/23 08:22 SP TYPE: EGD BIOPSY [facility] DR: Dr. Geeta Odell MD Tissues: Esophagus, NOS Procedures: Special Stain Group II Surgery Specimen Level IV Alcian Blue/PAS (control) HEADER OPERATION: EGD with biopsies and dilatation PRE-OP DIAGNOSIS: Esophageal dysphagia, cirrhosis TISSUE SUBMITTED: Distal esophagus biopsy MICROSCOPIC DIAGNOSIS Distal esophagus, biopsy: Gastroesophageal junctional mucosa with mild chronic inflammation. No evidence of goblet cell metaplasia. See comment. AM:kristy 04/10/2023 COMMENT Alcian blue/PAS stain with matched control supports the above diagnosis. MICROSCOPIC DESCRIPTION Slides are reviewed. GROSS DESCRIPTION Received in fixative is one container labeled with the patient's name and designated distal esophagus biopsy. The specimen consists of multiple irregular fragments of light artis soft tissue that in aggregate measure 1.5 x 0.5 x 0.1 cm. The specimen is totally submitted in one cassette. / SJ:kristy 04/09/2023 TC:3 CPT: 91733, 06030
== END 2023-04-08 15:06 | disposition home or self-care (01) ==
LOC: EN 12:50 → AC 12:52
PROVIDERS: PCP Family Medicine; Referring Provider Internal Medicine Gastroenterology; Visit Provider Internal Medicine Gastroenterology
PROC: 0DJ08ZZ Inspection of Upper Intestinal Tract, Via Natural or Artificial Opening Endoscopic (ICD-10-PCS; CPT 43235; principal; 2023-04-08 13:40)
DX: R13.19 Other dysphagia (principal); Z94.4 Liver transplant status; K74.60 Unspecified cirrhosis of liver; G40.909 Epilepsy, unspecified, not intractable, without status epilepticus; F32.A Depression, unspecified; M79.89 Other specified soft tissue disorders; G25.81 Restless legs syndrome
CPT/HCPCS: 43248; 43239; 82962; 88305; 88313; J7120; C1769; J2405

== ENCOUNTER → 2023-05-19 | Outpatient (CLI) | payer MEDICARE, SELFPAY ==
[2023-05-19 12:30] LABS: Absolute Lymphocyte Count 1.27 X10^3/uL (0.83-4.51); Absolute Neutrophil Count 3.6 X10^3/uL (2.0-7.7); Basophil# 0.02 X10^3/uL; Basophil% 0.4 % (0-1); Eosinophil# 0.06 X10^3/uL; Eosinophils% 1.2 % (0-5); Hematocrit 38.7 % (37-47); Hemoglobin 12.7 g/dL (12.0-15.0); Lymphocyte # 1.27 X10^3/ul (0.83-4.51); Lymphocyte % 24.4 % (19-41); Mean Corp Hgb Conc 32.8 g/dL (32-36); Mean Corpuscular Volume 82.2 fL (81-99); Mean Platelet Vol. 10.3 fl (6.2-12.0); Monocyte# 0.22 X10^3/uL; Monocyte% 4.2 % (0-10); NRBC Flagged by Analyzer 0 % (0-5); Neutrophil # 3.61 X10^3/uL (2.7-7.7); Neutrophil % 69.4 % (47-70); Platelet Count 131 K/mm3 (150-450); RBC Distribution Width CV 14.2 % (11.6-14.6); RBC Distribution Width SD 42.1 fl (35.1-43.9); Red Blood Count 4.71 M/mm3 (4.2-5.4); White Blood Count 5.2 K/mm3 (4.4-11.0)
[2023-05-19 12:57] LABS: AST(SGOT) 16 U/L (15-37); Alanine Aminotransfer ALT/SGPT 23 U/L (13-56); Albumin, Serum 3.4 g/dL (3.2-5.0); Alkaline Phosphatase 94 U/L (45-117); Anion Gap 8 (5-15); BUN 8 mg/dL (7-18); BUN/Creat Ratio 9.5 RATIO (10-20); Calcium,Total 8.5 mg/dL (8.5-10.1); Chloride 105 mmol/L (98-107); Creatinine, Serum 0.84 mg/dL (0.55-1.02); EST Glomerular Filtration Rate 74 mL/min (>60); Est Glom Filt Rate - Afr Amer 90 mL/min (>60); Globulin 3.4 g/dL (2.2-4.2); Glucose 175 mg/dL (74-106); Magnesium 1.8 mg/dL (1.6-2.6); Phosphorus 3.5 mg/dL (2.5-4.9); Potassium 3.7 mmol/L (3.5-5.1); Protein, Total 6.8 g/dL (6.4-8.2); Sodium Level 139 mmol/L (136-145)
[2023-05-27 16:09] LABS: AFP, Tumor Marker 5.7 ng/mL (0.0-9.2); Albumin 3.7 g/dL (2.9-4.4); Alpha-1-Globulins 0.2 g/dL (0.0-0.4); Alpha-2-Globulins 0.5 g/dL (0.4-1.0); Copper, Serum or Plasma 136 ug/dL (80-158); Gamma Globulin 1.1 g/dL (0.4-1.8); IMMUNOFIXATION RESULT,S Comment: (.); Immunoglobulin A 344 mg/dL (87-352); Immunoglobulin G 1062 mg/dL (586-1602); Immunoglobulin M 52 mg/dL (26-217); PROEL- TOTAL PROTEIN 6.5 g/dL (6.0-8.5)
== END | disposition home or self-care (01) ==
PROVIDERS: PCP Family Medicine; Referring Provider Internal Medicine Gastroenterology; Visit Provider Internal Medicine Gastroenterology
DX: R13.19 Other dysphagia (principal); F32.A Depression, unspecified
CPT/HCPCS: 36415; 80053; 82105; 82525; 82784; 83735; 84100; 84165; 85025; 86334

== ENCOUNTER → 2023-06-10 | Outpatient (CLI) | payer MEDICARE, SELFPAY | END | disposition home or self-care (01) | PROVIDERS: PCP Family Medicine; Referring Provider Family Medicine; Visit Provider Family Medicine | DX: R05.9 Cough, unspecified (principal) | CPT/HCPCS: 87635 ==

== ENCOUNTER → 2023-08-13 | Outpatient (CLI) | payer MEDICARE, SELFPAY ==
--- NOTE | 2023-08-13 12:07 | BI_ITS ---
MAMMOGRAPHY - BILATERAL SCREENING REASON FOR EXAM: Female, 58 years old. Routine annual screening examination. PERTINENT HISTORY: Aunt with breast cancer. TECHNIQUE: Digital bilateral breast alice (3D mammographic acquisition) in the CC and MLO projections. 2-D mediolateral oblique (MLO) and craniocaudad (CC) views of both breasts were obtained. CAD: Full Field Digital Mammography with Computer Added Detection was performed. COMPARISON: Comparison is made with prior study November 14, 2021 and September 19, 2017. FINDINGS: Breast Composition: There are scattered areas of fibroglandular density. There are no dominant masses or suspicious calcifications. No other significant abnormalities are identified. There has been no significant change since the prior study. BI/SCRN MAMM (CAD)W/ALICE BILAT IMPRESSION: Stable bilateral screening mammogram. Yearly follow-up mammogram recommended. (A) ASSESSMENT CATEGORY: BIRADS Category 1: Negative. A letter regarding these results will be sent to the patient by the facility within 30 days. Approximately 10% of breast cancers are not detected by mammography. A normal mammogram should not delay biopsy of a clinically suspicious abnormality. [id number] Electronically Signed: Terrance Kim MD at 13:25 EST ,
--- OUTSIDE RECORDS SUMMARY | 2023-08-13 21:50 | XMS RPT_ITS | CCD ---
Author Name Unknown Address [address] [place] [address] Organization [facility] Care Team Providers Care Paraoptometric Name Role Phone REFERRING, PHY WO ID Unavailable Unavailable SARA, GENNARO Unavailable Unavailable SARA, GENNARO Unavailable Unavailable REFERRING, PHY WO ID Unavailable Unavailable SARA, GENNARO Unavailable Unavailable SARA, GENNARO Unavailable Unavailable Rubén Logan Unavailable Unavailable Rubén Logan Unavailable Unavailable Problems Active Problems Problem Classification Problem Date Documented Da te Episodic/Chronic Coagulation and hemorrhagic disorders (2 sources) Thrombocytopenia , unspecified; Translations: [THROMBOCYTOPENI A, UNSPECIFIED] Onset: 12-18-2016 Chronic Unclassified (2 sources) Unknown / UNK(Unknown) Onset: 12-20-2016 Past or Other Problems Problem Classification Problem Date Documented Da te Episodic/Chronic Unclassified (1 source) R16.0 Onset: 12-20-2016 Unclassified (1 source) THROMBOCYTOPENIA, NONALCOHOLIC HEPATOSTEATOSIS, Onset: 05-02-2018 Results Test Name Value Interpretation Reference Range Facil ity Encounters Encounter Date Encounter Type Care Provider Facility Start: 05-02-2018 End: 05-03-2018 Evaluation and management of inpatient Rubén Logan Facility:[facility] Start: 12-20-2016 End: 12-21-2016 Ambulatory PHY WO ID REFERRING Facility:[facility] Start: 12-18-2016 End: 12-19-2016 Ambulatory PHY WO ID REFERRING Facility:[facility] Procedures Date Procedure Procedure Detail Performing Clinician Start: 05-02-2018 Electrocardiogram Rubén Logan Payers Date Payer Category Payer Unknown [id number] 2013 Unknown [id number] Unknown [id number] Summary Purpose Family History No Family History Records FoundNo Family History Records FoundNo Family History Records Found Advance Directives No Advanced Directives Records FoundNo Advanced Directives Records FoundNo Advanced Directives Records Found Hospital Course Note [facility] Patient Name: STEPHANE LOGAN D1Daisha [facility] [place] Date of : [address] [id number] Unit Number: [id number] Number: [id number] Summary Patient Status: ADM INAttending Doctor: Rubén Logan MDService Date: 05/03/18 1548Discharge SummaryAdmit DateAdmission Date Time: 05/02/18nticipated Discharge Date 05/03/18inal Dx/Problem List1. Hepatic encephalopathy2. Hyperammonemia3. Liver cirrhosis secondary to NASH4. ThrombocytopeniaChief Complaint/HPILethargyReason for AdmissionHepatic encephalopathyOperations/ProceduresNoneHospital CourseThikeenan is a 53-year-old female with past medical history significant for stage IVliver cirrhosis diagnosed in January 2017 secondary to MARMOLEJO ([facility]), history of migraine headaches,seizures with last seizure being 3 months ago and esophageal varices [facility]. She noted that (more content not included)... Additional Source Comments INFORMATION SOURCE (unrecogn ized section and content) DATE CREATED AUTHOR AUTHOR'S ORGANIZ ATION 05/25/2018 [facility] Rand elizalde [place] DATE CREATED AUTHOR AUTHOR'S ORGANIZ ATION 09/23/2020 [facility] ([place]) FOR RECORDS PERTAINING TO PATIENTS WHO ARE OR HAVE BEEN ENROLLED IN A CHEMICAL DEPENDENCY/SUBSTANCEABUSE PROGRAM, SOME INFORMATION MAY BE OMITTED. This clinical summary was aggregated from multiple sources. Caution should be exercised in using it in the provision of clinical care. This summary normalizes information from multiple sources, and as a consequence, information in this document may materially change the coding, format and clinical context of patient data. In addition, data may be omitted in some cases. CLINICAL DECISIONS SHOULD BE BASED ON THE PRIMARY CLINICAL RECORDS. [facility]. provides no warranty or guarantee of the accuracy or completeness of information in this document.
== END | disposition home or self-care (01) ==
PROVIDERS: PCP Family Medicine; Referring Provider Psychiatry & Neurology Neurology; Visit Provider Family Medicine
DX: Z12.31 Encounter for screening mammogram for malignant neoplasm of breast (principal); Z80.3 Family history of malignant neoplasm of breast
CPT/HCPCS: 77063; 77067

== ENCOUNTER → 2023-08-28 | Outpatient (CLI) | payer MEDICARE, SELFPAY ==
--- NOTE | 2023-08-28 14:02 | BD_ITS ---
STUDY: DUAL ENERGY X-RAY ABSORPTIOMETRY / DXA REASON FOR EXAM: Female, 58 years old. Osteoporosis TECHNIQUE: Bone Mineral Density (BMD) measurements of lumbar spine and bilateral hips were obtained. COMPARISON: None. FINDINGS: Lumbar Spine (L1-L4): g/cm2 (0.769) / T-score (-2.5) / Z-score (-1.4) Findings are suggestive of osteoporosis with a high fracture risk. Left Femur Total: g/cm2 (0.793) / T-score (-1.2) / Z-score (-0.5) Left Femoral Neck: g/cm2 (0.569) / T-score (-2.5) / Z-score (-1.4) Right Femur Total: g/cm2 (0.736) / T-score (-1.7) / Z-score (-0.9) Right Femoral Neck: g/cm2 (0.574) / T-score (-2.5) / Z-score (-1.4) BD/Dexa Bone Density Study IMPRESSION: The patient is considered osteoporotic as outlined below according to World [employer] Organization (WHO) criteria with a high fracture risk. Reference Information: The T-score is the number of standard deviations above or below the standard which is normal for young adults at their peak bone mineral density. The World Health Organization (WHO) interprets the T-scores as follows: Above -1 Normal bone density Between -1 and -2.5 Osteopenia Equal to / or below -2.5 Osteoporosis As a practical clinical guideline, osteopenia may be graded as follows: Mild -1 through -1.5 Moderate -1.6 through -2.0 Severe -2.1 through -2.4 The Z-score is the number of standard deviations above or below age-matched controls. A Z-score of less than -1.5 would be considered abnormal. References: 1. NIH Osteoporosis and Related Bone Diseases www osteo.org 2. International Society for Clinical Densitometry www iscd.org 3. National Osteoporosis Foundation www nof.org Electronically Signed: Terrance Kim MD at 11:09 EDT ,
== END | disposition home or self-care (01) ==
LOC: OPBD 14:02
PROVIDERS: PCP Family Medicine; Referring Provider Psychiatry & Neurology Neurology; Visit Provider Psychiatry & Neurology Neurology
DX: M81.0 Age-related osteoporosis without current pathological fracture (principal)
CPT/HCPCS: 77080

== ENCOUNTER → 2024-01-14 | Outpatient (CLI) | payer MEDICARE, MEDICAID, SELFPAY ==
[2024-01-14 12:48] LABS: Hematocrit 38.7 % (37-47); Hemoglobin 13.1 g/dL (12.0-15.0); Mean Corp Hgb Conc 33.9 g/dL (32-36); Mean Corpuscular Hgb 27.2 pg (27.0-32.0); Mean Corpuscular Volume 80.3 fL (81-99); Mean Platelet Vol. 9.9 fl (6.2-12.0); Platelet Count 127 K/mm3 (150-450); RBC Distribution Width CV 13.6 % (11.6-14.6); Red Blood Count 4.82 M/mm3 (4.2-5.4); White Blood Count 5.9 K/mm3 (4.4-11.0)
[2024-01-14 13:01] LABS: Carbamazepine (Tegretol) 8.5 ug/mL (4.0-12.0)
[2024-01-14 13:03] LABS: ALB/GLOB Ratio 0.9 RATIO (0.9-2.4); AST(SGOT) 24 U/L (15-37); Alanine Aminotransfer ALT/SGPT 24 U/L (13-56); Albumin, Serum 3.4 g/dL (3.2-5.0); Alkaline Phosphatase 111 U/L (45-117); Anion Gap 6 (5-15); BUN 10 mg/dL (7-18); BUN/Creat Ratio 14.6 RATIO (10-20); Calcium,Total 8.9 mg/dL (8.5-10.1); Chloride 106 mmol/L (98-107); Creatinine, Serum 0.68 mg/dL (0.55-1.02); EST Glomerular Filtration Rate 94 mL/min (>60); Est Glom Filt Rate - Afr Amer 114 mL/min (>60); Globulin 3.7 g/dL (2.2-4.2); Glucose 117 mg/dL (74-106); Potassium 4.1 mmol/L (3.5-5.1); Protein, Total 7.1 g/dL (6.4-8.2); Sodium Level 139 mmol/L (136-145)
== END | disposition home or self-care (01) ==
LOC: MTLAB 09:51
PROVIDERS: PCP Family Medicine; Referring Provider Psychiatry & Neurology Neurology; Visit Provider Psychiatry & Neurology Neurology
DX: G50.0 Trigeminal neuralgia (principal)
CPT/HCPCS: 36415; 80053; 80156; 85027

== ENCOUNTER → 2024-01-27 | Outpatient (CLI) | payer MEDICARE, MEDICAID, SELFPAY ==
--- NOTE | 2024-01-27 16:30 | MRI_ITS ---
STUDY: MRI BRAIN WITH AND WITHOUT CONTRAST REASON FOR EXAM: Female, 58 years old. left trigeminal neuralgia TECHNIQUE: Standardized multiplanar fat and water weighted pulse sequences were obtained. IV 12ml clariscan was administered for the contrast portion of the examination. COMPARISON: October 09, 2012 FINDINGS: Normal size of the ventricles and extra-axial spaces for the patient''s age. Normal white matter tracts of the supratentorial brain. Normal bilateral basal ganglia. Normal thalami. There is no extra-axial fluid accumulation. Normal flow voids within the major intracranial circulation suggesting patency by spin echo criteria. Normal venous enhancement. There is no enhancing intra-axial or extra-axial abnormality. Normal sella turcica, pituitary gland, infundibular stalk, optic chiasm and hypothalamus. Normal tectal plate and pineal gland. Normal midbrain, loc and medulla. Normal cerebellum. Normal basal cisterns. Normal bilateral temporal bones. Normal bilateral internal auditory canals. No demonstrated orbital abnormality, within the constraints of a routine brain study. Normal visualized paranasal sinuses. Normal calvarium and skull base. Normal visualized soft tissue structures. Normal visualized upper cervical spine. No significant change since prior exam MRI/Brain W/WO Contrast IMPRESSION: Normal unenhanced and enhanced MRI of the brain. Electronically Signed: Jayson Gonzalez MD at 18:39 EDT ,
== END | disposition home or self-care (01) ==
PROVIDERS: PCP Family Medicine; Referring Provider Psychiatry & Neurology Neurology; Visit Provider Psychiatry & Neurology Neurology
DX: G50.0 Trigeminal neuralgia (principal)
CPT/HCPCS: 70553; A9575

== ENCOUNTER 2024-02-24 10:33 | Emergency (ER) | payer MEDICARE, MEDICAID, SELFPAY ==
[2024-02-24 10:33] VITALS: BP 174/99; PULSE 79; RESP 14; TEMP 36.6; O2SAT 98; BMI 28.0
--- NOTE | 2024-02-24 10:47 | EX.ED.DYSGE1 ---
HPI History of Present Illness Chief Complaint: Meds Only Detail of Chief Complaint: Left facial pain needs infusion of phenytoin Informant: patient and PCP Narrative Narrative: Patient sent to the emergency department by her neurologist to receive an infusion of phenytoin. Patient states that she has been having facial pain for about a year and has been diagnosed with trigeminal neuralgia. Patient over the last 4 days has been having increased pain. Infusion center was full therefore patient was sent to the ED to have a dose of 1000 mg of phenytoin given IV. Patient denies any facial injuries. She denies any fevers or recent illness. She does have history of liver transplant related to MARMOLEJO. She has been doing well. Patient states that she has had multiple dental visits because initially she thought the pain may be related to her teeth and she has had a root canal and no treatments have helped her pain [facility] Medical History (Updated 02/24/24 @ 10:[address] Franklin Escamilla, ) Osteoporosis Pneumonia Acute hyponatremia Nausea & vomiting Acute abdominal pain in right flank Major depressive disorder PTSD (post-traumatic stress disorder) Fatigue Gastric ulcer Seasonal allergies Neuropathy Cirrhosis Serum ammonia increased Wears contact lenses Wears glasses Cancer Alcohol use Bladder disease Arthritis DVT (deep venous thrombosis) Restless legs Back pain Migraine headache TIA (transient ischemic attack) Blackout Seizures Dietary restriction History of ulceration History of IBS Gastric reflux Non-smoker Shortness of breath on exertion Leg cramps History of pain when walking History of stress test History of echocardiogram COVID Immunocompromised state due to drug therapy CVA (cerebral vascular accident) DVT (deep venous thrombosis) Epilepsy Diabetes Clostridium difficile colitis Anxiety Esophageal varices Hiatal hernia Asthma Migraine MARMOLEJO (nonalcoholic steatohepatitis) Home Medications ?Medication ?Instructions ?Recorded ?Last Taken ?Type albuterol sulfate 90 mcg/actuation 1 - 2 puff inhalation Q4H PRN PRN 02/08/18 12/07/22 History aerosol inhaler breathing zolpidem 10 mg tablet (Ambien) 10 mg PO QHS sleep 02/17/20 04/07/23 History metformin 500 mg tablet 500 mg PO DAILY diabetes 09/12/20 04/07/23 History hydroxyzine HCl 25 mg tablet 25 mg PO Q4H PRN PRN Anxiety 03/12/21 12/07/22 History citalopram 40 mg tablet 40 mg PO DAILY 30 days #30 tabs 11/19/22 04/07/23 Rx mirabegron 50 mg tablet,extended 50 mg PO DAILY . 12/09/22 04/07/23 History release 24 hr (Myrbetriq) amoxicillin 500 mg capsule 500 mg PO Q8H 04/04/23 Unknown History tacrolimus 1 mg capsule, 2 mg (2 x 1 mg) PO Q12H 30 days 05/15/23 Unknown Rx immediate-release #120 caps pantoprazole 40 mg tablet,delayed 40 mg PO DAILY 90 days #90 tabs 08/14/23 Unknown Rx release (Protonix) entecavir 0.5 mg tablet 0.5 mg PO DAILY hepatitis B 30 11/18/23 Unknown Rx days #30 tabs mycophenolate mofetil 250 mg 250 mg PO BID antirejection 30 11/18/23 Unknown Rx capsule (CellCept) days #60 caps naratriptan 2.5 mg tablet 2.5 mg .Route .COMPLEX #9 tabs 01/07/24 Unknown Rx ropinirole 1 mg tablet 1 mg PO QHS PRN RLS #30 tabs 01/07/24 Unknown Rx carbamazepine 100 mg chewable 100 mg PO TID #90 tabs 01/15/24 Unknown Rx tablet alprazolam 0.5 mg tablet See Rx Instructions .Route 01/20/24 Unknown Rx .COMPLEX #1 TAB phenytoin sodium extended 100 mg 100 mg PO TID #90 caps 02/19/24 Unknown Rx capsule Phenytoin 1,000 mg IV ONCE #1,000 mg 02/24/24 Unknown Rx Allergy/AdvReac Type Severity Reaction Status Date / Time sulfamethoxazole (From Allergy Fever and Verified 02/24/24 10:34 Bactrim) skin rash trimethoprim (From Bactrim) Allergy Fever and Verified 02/24/24 10:34 skin rash diphenhydramine HCl (From AdvReac climb the Verified 02/24/24 10:34 Benadryl) rose lorazepam (From Ativan) AdvReac Climb the Verified 02/24/24 10:34 rose prochlorperazine edisylate AdvReac climb the Verified 02/24/24 10:34 (From Compazine) rose prochlorperazine maleate AdvReac climb out Verified 02/24/24 10:34 (From Compazine) of my body promethazine HCl (From AdvReac climb the Verified 02/24/24 10:34 Phenergan) rose topiramate (From Topamax) AdvReac Other Verified 02/24/24 10:34 tramadol AdvReac climb the Verified 02/24/24 10:34 milton Family History Mother Heart disease COPD (chronic obstructive pulmonary disease) Father Chronic alcoholism Surgical History History of transplantation, liver Hx of esophagogastroduodenoscopy Hx of colonoscopy History of lumbar spinal fusion Hx of ventral hernia repair Hx of right knee surgery Hx of left knee surgery Hx of hysterectomy Hx of dilation and curettage Hx of hemorrhoidectomy Hx of tubal ligation Hx of breast reduction, elective Hx of repair of right rotator cuff Hx of cholecystectomy H/O liver transplant Liver transplant recipient Social History Smoking Status: Never smoker second hand exposure: No alcohol intake: former substance use type: does not use what type of physical activity do you participate in: walking ROS ROS ED Review of Systems ROS Unobtainable: other Constitutional Constitutional ED: Reports lethargy; Denies chills, fever(s), sweats or weight loss Eyes Eyes: Denies blurry vision, change in vision or diplopia ENT ENT ED: Reports other Details: Left facial pain ; Denies rhinorrhea or sore throat Cardiovascular Cardiovascular: Denies chest pain, orthopnea or racing heartbeat Respiratory/Chest Respiratory/Chest: Denies cough, dyspnea, dyspnea on exertion, orthopnea or sputum Gastrointestinal Gastrointestinal: Denies abdominal pain, diarrhea, nausea or vomiting Genitourinary Genitourinary ED: Denies dysuria, hematuria or urinary frequency Musculoskeletal Musculoskeletal: Denies arthralgias, back pain, myalgias or neck pain Integumentary Denies abscess, Abrasions or rash Neurologic Neurologic: Denies headache(s) or weakness Psychiatric Psychiatric: Denies anxiety, depression or suicidal thoughts Endocrine Endocrinology: Denies polydipsia, polyphagia or polyuria Hematologic/Lymphatic Hematologic/Lymphatic: Denies easy bleeding, easy bruising or lymphadenopathy Allergic/Immunologic Allergic/Immunologic ED: Denies mouth swelling, tongue swelling or urticaria EXAM Physical Exam Const Vital Signs: 02/24/24 10:33 Temperature 98 F Temperature Source Temporal Pulse Rate 79 Respiratory Rate 14 Blood Pressure 174/99 H Blood Pressure Mean 124 Pulse Ox 98 Oxygen Delivery Method Room Air Positive well nourished and well developed General Appearance ED: well developed and NAD HEENT Reports TM's clear and moist mucous membranes HEENT Narrative: Mild diffuse tenderness with palpation of the left side of the face. No rashes noted. No soft tissue swelling. normocephalic and atraumatic; Negative for trauma or tenderness Tympanic Membrane ED: Yes TM's clear Eyes PERRL and EOMs intact bilaterally General Eye ED: Negative for pale conjunctiva or scleral icterus Neck no lymphadenopathy, supple and no JVD General: Negative for tenderness Chest Wall inspection of chest normal and palpation of chest normal Chest: Negative for tenderness Resp normal respiratory effort and clear to auscultation bilaterally Effort and Inspection: Negative for respiratory distress or pain with movement Auscultation: Negative for rhonchi, wheezes or diminished lung sounds Cardio regular rate, regular rhythm, S1 normal heart sound, S2 normal heart sound and no murmurs Peripheral Pulses: pulses 2+ throughout GI normal to inspection, nondistended, normoactive bowel sounds, soft to palpation, non-tender, non-distended and no masses Back/Spine no CVA tenderness and no thoracic nor lumbar tenderness Extremity normal to inspection General Extremety ED: Negative for edema General Extremity: Negative for edema Neuro oriented x3, CN's II-XII intact bilaterally, no sensory deficits noted and gait normal Sensorium / Orientation: awake, alert, oriented to person, oriented to place and oriented to time Motor Exam: strength 5/5 throughout and strength abnormal Psych mental status grossly normal Skin no rashes or lesions noted and no wounds MDM MDM MDM Narrative Medical decision making narrative: Patient will be given 1000 g IV phenytoin. She will be discharged to home after infusion and advised to keep appointment with her neurologist as instructed. Discharge Plan Triage Chief Complaint: Meds Only ED Provider: Franklin Escamilla Dx/Rx/DC Orders Clinical Impression: Trigeminal neuralgia Instructions: ED Trigeminal Neuralgia Prescriptions: No Action zolpidem [Ambien] 10 mg tablet 10 mg PO QHS citalopram 40 mg tablet 40 mg PO DAILY 30 Days Qty: 30 2RF pantoprazole [Protonix] 40 mg tablet,delayed release (DR/EC) 40 mg PO DAILY 90 Days Qty: 90 3RF naratriptan 2.5 mg tablet 2.5 mg .ROUTE .COMPLEX Qty: 9 6RF Rx Instructions: Take 1 tablet orally every 4 hours as needed for headache up to 2 tablets daily. ropinirole 1 mg tablet 1 mg PO QHS PRN (Reason: RLS) Qty: 30 4RF Phenytoin 1,000 mg IV ONCE Qty: 1000 0RF albuterol sulfate 1 INHALER inhaler 1 - 2 puff inhalation Q4H PRN PRN (Reason: breathing) metformin 500 MG tablet 500 mg PO DAILY hydroxyzine HCl 25 mg tablet 25 mg PO Q4H PRN PRN (Reason: Anxiety) Patient Comments: TAKE 1 TABLET BY MOUTH UP TO 6 TIMES DAILY NEEDED Myrbetriq 50 mg tablet extended release 24 hr 50 mg PO DAILY Patient Comments: Take 1 tablet orally once daily amoxicillin 500 mg capsule 500 mg PO Q8H Patient Comments: TAKE 1 CAPSULE THREE TIMES DAILY UNTIL GONE tacrolimus 1 mg capsule 2 mg PO Q12H 30 Days Qty: 120 2RF mycophenolate mofetil [CellCept] 250 mg capsule 250 mg PO BID 30 Days Qty: 60 2RF entecavir 0.5 mg tablet 0.5 mg PO DAILY 30 Days Qty: 30 2RF carbamazepine 100 mg tablet,chewable 100 mg PO TID Qty: 90 6RF alprazolam 0.5 mg tablet See Rx Instructions .Route .COMPLEX Qty: 1 0RF Rx Instructions: Take 1 tablet orally 30 minutes prior to MRI phenytoin sodium extended 100 mg capsule 100 mg PO TID Qty: 90 4RF Primary Care Provider: Geeta Odell Referrals: Geeta Odell MD [Primary Care Provider] - Kedar Bunch MD [Non-Staff -Ordering Privileges] - Keep Dhaval appointment Print Language: [place] Verde[place] Disposition Disposition: Home, Self Care
[2024-02-24] MEDS: PHENYTOIN NA IV (11:24)
[2024-02-24] MEDS: NORMAL SALINE 0.9% IV (11:24)
[2024-02-24 13:51] LABS: Bedside Glucose 138 mg/dL (74-106)
[2024-02-24 14:05] VITALS: BP 166/71; PULSE 78; RESP 16; TEMP 36.8; O2SAT 99
== END 2024-02-24 14:06 | disposition home or self-care (01) ==
LOC: ED 11:07
PROVIDERS: Emergency Provider Emergency Medicine; PCP Family Medicine; Visit Provider Emergency Medicine
DX: G50.0 Trigeminal neuralgia (principal); Z94.4 Liver transplant status; G40.909 Epilepsy, unspecified, not intractable, without status epilepticus; E11.40 Type 2 diabetes mellitus with diabetic neuropathy, unspecified; F32.9 Major depressive disorder, single episode, unspecified; Z86.16 Personal history of COVID-19; Z86.73 Personal history of transient ischemic attack (TIA), and cerebral infarction without residual deficits; Z86.718 Personal history of other venous thrombosis and embolism; Z98.1 Arthrodesis status; Z98.51 Tubal ligation status; Z90.49 Acquired absence of other specified parts of digestive tract
CPT/HCPCS: 82962; 96360; 99281; J7050; A4216

== ENCOUNTER → 2024-05-06 | Outpatient (CLI) | payer MEDICARE, SELFPAY ==
[2024-05-06 18:30] LABS: Microalbumin,Random Urine < 5.0 mg/L (NO RANGE EST.)
[2024-05-06 18:37] LABS: ALB/GLOB Ratio 0.8 RATIO (0.9-2.4); AST(SGOT) 61 U/L (15-37); Alanine Aminotransfer ALT/SGPT 49 U/L (13-56); Alkaline Phosphatase 122 U/L (45-117); Anion Gap 4 (5-15); BUN 6 mg/dL (7-18); BUN/Creat Ratio 7.8 RATIO (10-20); Calcium,Total 8.4 mg/dL (8.5-10.1); Chloride 107 mmol/L (98-107); Cholesterol 165 mg/dL (200); Creatinine, Serum 0.77 mg/dL (0.55-1.02); EST Glomerular Filtration Rate 83 mL/min (>60); Est Glom Filt Rate - Afr Amer 100 mL/min (>60); Globulin 3.8 g/dL (2.2-4.2); Glucose 174 mg/dL (74-106); High Density Lipoprotein 48 mg/dL; Potassium 3.9 mmol/L (3.5-5.1); Protein, Total 6.8 g/dL (6.4-8.2); Sodium Level 139 mmol/L (136-145); Thyroid Stim Hormone (TSH) 0.748 uIU/mL (0.358-3.740); Triglycerides 106 mg/dL; Very Low Density Lipoprotein 21 mg/dL (5-40)
== END | disposition home or self-care (01) ==
LOC: BFHLAB 14:58
PROVIDERS: PCP Family Medicine; Referring Provider Family Medicine; Visit Provider Family Medicine
DX: E11.9 Type 2 diabetes mellitus without complications (principal); R53.83 Other fatigue
CPT/HCPCS: 36415; 80053; 80061; 82043; 82570; 84443

== ENCOUNTER → 2024-05-11 | Outpatient (CLI) | payer MEDICARE, SELFPAY ==
[2024-05-11 15:31] LABS: Absolute Lymphocyte Count 1.56 X10^3/uL (0.83-4.51); Basophil# 0.04 X10^3/uL; Basophil% 0.8 % (0-1); Eosinophil# 0.05 X10^3/uL; Hematocrit 40.2 % (37-47); Hemoglobin 13.5 g/dL (12.0-15.0); Lymphocyte # 1.56 X10^3/ul (0.83-4.51); Lymphocyte % 31.1 % (19-41); Mean Corp Hgb Conc 33.6 g/dL (32-36); Mean Corpuscular Hgb 28.7 pg (27.0-32.0); Mean Corpuscular Volume 85.5 fL (81-99); Mean Platelet Vol. 11.5 fl (6.2-12.0); Monocyte# 0.31 X10^3/uL; Monocyte% 6.2 % (0-10); NRBC Flagged by Analyzer 0 % (0-5); Neutrophil # 3.04 X10^3/uL (2.7-7.7); Neutrophil % 60.5 % (47-70); POSITIVE COUNT YES; Platelet Count 81 K/mm3 (150-450); RBC Distribution Width CV 13.1 % (11.6-14.6); RBC Distribution Width SD 40.7 fl (35.1-43.9)
[2024-05-11 15:37] LABS: International Normalized Ratio 1.2; Prothrombin Time (Protime)PT. 15.1 SECONDS (11.7-14.9)
[2024-05-11 15:55] LABS: ALB/GLOB Ratio 0.8 RATIO (0.9-2.4); AST(SGOT) 47 U/L (15-37); Alanine Aminotransfer ALT/SGPT 37 U/L (13-56); Alkaline Phosphatase 115 U/L (45-117); Anion Gap 4 (5-15); BUN 13 mg/dL (7-18); BUN/Creat Ratio 12.9 RATIO (10-20); Calcium,Total 8.7 mg/dL (8.5-10.1); Chloride 106 mmol/L (98-107); Creatinine, Serum 1.01 mg/dL (0.55-1.02); Differential Indicated SCAN CRITERIA MET; EST Glomerular Filtration Rate 60 mL/min (>60); Est Glom Filt Rate - Afr Amer 73 mL/min (>60); Globulin 3.9 g/dL (2.2-4.2); Glucose 245 mg/dL (74-106); Protein, Total 6.9 g/dL (6.4-8.2); Sodium Level 137 mmol/L (136-145)
[2024-05-11 16:58] LABS: Platelet Morphology LARGE
[2024-05-11 17:01] LABS: Platelet Estimate MOD DEC (ADEQ)
== END | disposition home or self-care (01) ==
LOC: MTLAB 13:37
PROVIDERS: PCP Family Medicine; Referring Provider Internal Medicine Gastroenterology; Visit Provider Internal Medicine Gastroenterology
DX: Z79.899 Other long term (current) drug therapy (principal); Z94.4 Liver transplant status
CPT/HCPCS: 36415; 80053; 85025; 85610

== ENCOUNTER 2024-05-20 13:17 | Emergency (ER) | payer MEDICARE, MEDICAID, SELFPAY ==
[2024-05-20 13:20] VITALS: BP 119/91; PULSE 97; RESP 18; TEMP 36.8; O2SAT 99; BMI 25.7
--- NOTE | 2024-05-20 13:37 | RAD_ITS ---
STUDY: X-RAY CHEST REASON FOR EXAM: Female, 59 years old. SOB TECHNIQUE: PA and lateral views of the chest. COMPARISON: Comparison is made with prior study dated December 09, 2022. FINDINGS: The lungs are clear and expanded. There is no demonstrated pleural abnormality. Normal size heart. Normal mediastinum and erin. Normal visualized pulmonary arteries. Normal visualized aortic arch and descending thoracic aorta. There are diffuse degenerative changes of the visualized thoracic spine. Normal visualized ribs, clavicles, and shoulders. Surgical clips are seen in the right upper abdomen. RAD/Chest PA and Lateral IMPRESSION: No acute abnormality is seen. Electronically Signed: Terrance Kim MD at 15:27 [facility] ,
--- NOTE | 2024-05-20 13:37 | EKG12_ITS ---
Test Reason : DYSP Blood Pressure : */* mmHG Vent. Rate : 89 BPM Atrial Rate : 89 BPM P-R Int : 144 ms QRS Dur : 80 ms QT Int : 384 ms P-R-T Axes : 38 -26 39 degrees QTcB Int : 467 ms Normal sinus rhythm Inferior infarct (cited on or before 21-Nov-2021) Possible Anterior infarct (cited on or before 21-Nov-2021) Abnormal ECG Confirmed by Ankush Francis ([id number]), continuity editor JHONY DIAZ ([id number]) on 05/21/2024 1:42:54 PM Referred By: RAKESH Confirmed By: Ankush Francis
--- NOTE | 2024-05-20 13:50 | CT_ITS ---
STUDY: CTA CHEST REASON FOR EXAM: Female, 59 years old. SOB, hx blood clot RADIATION DOSAGE (If Supplied By Facility): CTDIvol = ( 20.24 ) mGy, DLP = ( 455.27 ) mGycm TECHNIQUE: The examination was performed with the intravenous administration of IV 100mL Isovue-370. Post-processing of the angiographic images was performed, with multiplanar reformation and 3D reconstruction. Individualized dose optimization techniques were used for this CT. COMPARISON: Comparison is made with prior chest radiograph done earlier in the day as well as prior CT of the chest dated December 01, 2020. FINDINGS: Normal enhancement of the main pulmonary artery and right and left pulmonary arteries. Normal enhancement of the bilateral peripheral pulmonary arteries. There is no demonstrated pulmonary embolism. Normal thoracic aorta and visualized great vessels. There is no demonstrated aortic dissection. Normal heart and pericardium. Normal mediastinum. Normal hilar regions. Normal visualized trachea and bronchi. The lungs are well expanded. Normal pulmonary parenchyma. Normal pleura. Normal chest wall structures. Normal osseous structures. Small hiatal hernia. The patient is status post liver transplantation. CT/CTA Chest W/WO Contrast IMPRESSION: Normal CTA chest examination, without a demonstrated pulmonary embolism or arterial dissection. Electronically Signed: Terrance Kim MD at 15:32 EST ,
--- NOTE | 2024-05-20 13:50 | CT_ITS ---
STUDY: CT ABDOMEN AND PELVIS WITH CONTRAST REASON FOR EXAM: Female, 59 years old. abdominal paim, hx liver transplant RADIATION DOSAGE (If Supplied By Facility): CTDIvol = ( 20.15 ) mGy, DLP = ( 701.46 ) mGycm TECHNIQUE: Transaxial images were obtained from the dome of the diaphragm to the symphysis pubis without oral contrast. IV 100mL Isovue-370 was administered. Sagittal and coronal images were reconstructed. Individualized dose optimization techniques were used for this CT. COMPARISON: None. FINDINGS: The visualized lung bases are unremarkable. The visualized portions of the heart are within normal limits. There is apparent surgical clips in the clare hepatis consistent with the history of liver transplant. There is a normal appearance of the liver. There is absent gallbladder. There is mild splenomegaly. There is a normal pancreas. Normal bilateral adrenal glands. Normal right kidney. Normal left kidney. Evaluation of the GI tract is limited by absence of oral contrast. Esophageal varices are seen surrounding the lower esophagus and extending into the epigastric space. These are significantly more prominent than on the previous study and suggest portal hypertension. Cannot exclude stomach wall thickening. No dilated loops of bowel or evidence for obstruction. Cannot exclude segmental thickening of the rose of the small or large bowel. Cannot exclude enteritis or colitis. Moderate diffuse fecal retention. Diverticulosis without definite diverticulitis. Appendix within normal limits. Normal abdominal aorta. Normal inferior vena cava. Normal retroperitoneum. Normal urinary bladder. There is absence of the uterus consistent with a prior hysterectomy. Normal abdominal wall. There are diffuse degenerative changes of the visualized lumbar spine. CT/Abdomen/Pelvis W IV Cont ONLY IMPRESSION: No acute abnormality is seen. However it appears the patient is developing esophageal and upper abdominal portosystemic varices suggestive of portal venous hypertension. Electronically Signed: Herve Henriquez MD at 19:00 EST ,
--- NOTE | 2024-05-20 14:09 | EDS_ITS ---
<Statement entered by Apolinar Kamara DO - 05/20/24 21:52> Patient was seen and examined with physician title i instructional assistant Raquel All components of the history and physical confirmed and agreed. History of present illness and physical exam: Patient is a 59-year-old female past medical history of epilepsy, migraines, pseudoseizures, fibromyalgia, Jewell stage IV status post liver transplant in 2018 who presents to the emergency department with a chief complaint of abnormal liver labs. She states that she follows up with Dr. June due to her history of Jewell and liver transplant. States that this was originally done in [place]. She states that she has been very fatigued over the past month and is what originally prompted them to have blood drawn. She also notes that she has been short of breath with exertion over the past several days. She is concerned with her ammonia levels as well. Patient denies any recent sick contacts Review of systems agree with above Physical exam: Agree with above MDM Patient is a 59-year-old female who presents to the Emergency Department with a chief complaint of fatigue and abnormal blood draw in the outpatient setting. Patient will have a workup performed here on the differential diagnose includes but not limited to portal venous thrombosis, [id number]-[id number] disease, UTI, pneumonia, PE. Once workup is obtained reviewed she will be reevaluated. Patient's CBC reviewed and showed no evidence leukocytosis white blood count normal at 7, hemoglobin stable 13.6, platelet count was noted to be 92. Patient's sodium was noted be 136, potassium 3.4, creatinine was 1.21. Patient's INR normal at 1.2. Patient's AST and ALT were 32 and 27 respectively which is improved from her previous blood draw, ammonia was noted be normal at 17, troponin normal at 7. Patient proBNP normal at 33.8. Patient's urinalysis reviewed and showed 500 leukocyte esterase 0-5 white cells with 1+ bacteria. Patient's chest x-ray reviewed by myself and by radiology showed no acute cardiopulmonary processes. Patient's CTA of her chest showed no acute pulmonary embolism or arterial dissection. Patient CT on pelvis with IV contrast showed no acute abnormality seen. However it appears that the patient is developing esophageal and upper abdominal post systematic varices suggestive of portal venous hypertension. Patient states that she does have a history of varices and has had banding in the past. She was recommended to have close follow-up with her primary care physician and Dr. June. Patient would like to go home at this point time she was encouraged return with worsening symptoms or concerns. All question concerns answered she is discharged home in stable condition Final impression: Shortness of breath Medical screening exam History of liver transplant 2018 Esophageal varices Disposition: Patient will be discharged home in stable condition Supervising attending attestation: Apolinar RIDLEY History of Present Illness Chief Complaint: Abn Labs Narrative Narrative: Patient presenting today with concerns for abnormal liver labs. She reports that she follows with Dr. June due to history of JEWELL and liver transplant in 2018. She reports that over the past month she has felt fatigued. She has been short of breath with exertion over the last several days and reports intermittent lightheadedness and nausea. She is concerned that her ammonia levels could be elevated as she has had, memory issues and difficulty remembering certain things. She reports occasional left lower quadrant abdominal pain. She denies vomiting, diarrhea, dysuria, and chest pain. She does have a remote history of DVT when she was . She has a PMH of epilepsy, migraines, memory loss, pseudoseizures, fibromyalgia and JEWELL stage IV s/p liver transplant in 05/2018. [facility] Medical History Asthma COPD (chronic obstructive pulmonary disease) Osteoporosis Pneumonia Acute hyponatremia Nausea & vomiting Acute abdominal pain in right flank Major depressive disorder PTSD (post-traumatic stress disorder) Fatigue Gastric ulcer Seasonal allergies Neuropathy Cirrhosis Serum ammonia increased Wears contact lenses Wears glasses Cancer Alcohol use Bladder disease Arthritis DVT (deep venous thrombosis) Restless legs Back pain Migraine headache TIA (transient ischemic attack) Blackout Seizures Dietary restriction History of ulceration History of IBS Gastric reflux Non-smoker Shortness of breath on exertion Leg cramps History of pain when walking History of stress test History of echocardiogram COVID Immunocompromised state due to drug therapy CVA (cerebral vascular accident) DVT (deep venous thrombosis) Epilepsy Diabetes Clostridium difficile colitis Anxiety Esophageal varices Hiatal hernia Asthma Migraine JEWELL (nonalcoholic steatohepatitis) Home Medications ?Medication ?Instructions ?Recorded ?Last Taken ?Type albuterol sulfate 90 mcg/actuation 1 - 2 puff inhalation Q4H PRN PRN 02/08/18 12/07/22 History aerosol inhaler breathing zolpidem 10 mg tablet (Ambien) 10 mg PO QHS sleep 02/17/20 04/07/23 History metformin 500 mg tablet 500 mg PO DAILY diabetes 09/12/20 04/07/23 History hydroxyzine HCl 25 mg tablet 25 mg PO Q4H PRN PRN Anxiety 03/12/21 12/07/22 History citalopram 40 mg tablet 40 mg PO DAILY 30 days #30 tabs 11/19/22 04/07/23 Rx mirabegron 50 mg tablet,extended 50 mg PO QHS . 12/09/22 04/07/23 History release 24 hr (Myrbetriq) pantoprazole 40 mg tablet,delayed 40 mg PO DAILY 90 days #90 tabs 08/14/23 Unknown Rx release (Protonix) mycophenolate mofetil 250 mg 250 mg PO BID antirejection 30 11/18/23 Unknown Rx capsule (CellCept) days #60 caps naratriptan 2.5 mg tablet 2.5 mg .Route .COMPLEX #9 tabs 01/07/24 Unknown Rx ropinirole 1 mg tablet 1 mg PO QHS PRN RLS #30 tabs 01/07/24 Unknown Rx carbamazepine 100 mg chewable 100 mg PO TID #90 tabs 01/15/24 Unknown Rx tablet phenytoin sodium extended 100 mg 100 mg PO TID #90 caps 02/19/24 Unknown Rx capsule oxcarbazepine 150 mg tablet 150 mg PO QDAY #60 tabs 03/08/24 Unknown Rx tacrolimus 1 mg capsule, 2 mg (2 x 1 mg) PO Q12H #120 caps 03/30/24 Unknown Rx immediate-release entecavir 0.5 mg tablet 0.5 mg PO DAILY hepatitis B 30 05/10/24 Unknown Rx days #30 tabs fluticasone 100 mcg-salmeterol 50 1 ea inhalation BID 05/20/24 Unknown History mcg/dose blistr powdr for inhalation (Wixela Inhub) Allergy/AdvReac Type Severity Reaction Status Date / Time sulfamethoxazole (From Allergy Fever and Verified 05/20/24 13:18 Bactrim) skin rash trimethoprim (From Bactrim) Allergy Fever and Verified 05/20/24 13:18 skin rash diphenhydramine HCl (From AdvReac climb the Verified 05/20/24 13:18 Benadryl) rose lorazepam (From Ativan) AdvReac Climb the Verified 05/20/24 13:18 rose prochlorperazine edisylate AdvReac climb the Verified 05/20/24 13:18 (From Compazine) rose prochlorperazine maleate AdvReac climb out Verified 05/20/24 13:18 (From Compazine) of my body promethazine HCl (From AdvReac climb the Verified 05/20/24 13:18 Phenergan) rose topiramate (From Topamax) AdvReac Other Verified 05/20/24 13:18 tramadol AdvReac climb the Verified 05/20/24 13:18 rose Family History Mother Heart disease COPD (chronic obstructive pulmonary disease) Father Chronic alcoholism Surgical History History of transplantation, liver Hx of esophagogastroduodenoscopy Hx of colonoscopy History of lumbar spinal fusion Hx of ventral hernia repair Hx of right knee surgery Hx of left knee surgery Hx of hysterectomy Hx of dilation and curettage Hx of hemorrhoidectomy Hx of tubal ligation Hx of breast reduction, elective Hx of repair of right rotator cuff Hx of cholecystectomy H/O liver transplant Liver transplant recipient Social History Smoking Status: Never smoker second hand exposure: No alcohol intake: former substance use type: does not use what type of physical activity do you participate in: walking ROS ROS ED Constitutional Constitutional ED: Denies chills or fever(s) Cardiovascular Cardiovascular: Denies chest pain Respiratory/Chest Respiratory/Chest: Reports dyspnea on exertion; Denies cough Gastrointestinal Gastrointestinal: Reports abdominal pain and nausea; Denies vomiting Genitourinary Genitourinary ED: Denies dysuria, hematuria or urinary urgency Musculoskeletal Musculoskeletal: Denies arthralgias or myalgias Integumentary Denies rash Neurologic Neurologic: Reports confusion and weakness EXAM Physical Exam Const Vital Signs: 05/20/24 13:20 05/20/24 14:08 05/20/24 15:17 Temperature 98.3 F Temperature Source Oral Pulse Rate 97 84 Respiratory Rate 18 Respiratory Effort Normal Non-Labored Respiratory Pattern Normal Blood Pressure 119/91 H 132/86 H Blood Pressure Mean 100 101 Pulse Ox 99 Oxygen Delivery Method Room Air 05/20/24 17:00 05/20/24 19:00 Temperature Temperature Source Pulse Rate 87 Respiratory Rate Respiratory Effort Respiratory Pattern Blood Pressure 126/89 H 136/89 H Blood Pressure Mean 101 104 Pulse Ox Oxygen Delivery Method Positive well nourished, well developed and no apparent distress General Appearance ED: well developed HEENT Reports normocephalic and head/scalp atraumatic Mouth ED: Yes moist mucous membranes normal Eyes PERRL and EOMs intact bilaterally Neck full ROM and supple Chest Wall inspection of chest normal Resp normal respiratory effort and clear to auscultation bilaterally Cardio regular rate and regular rhythm GI soft to palpation, non-distended and no masses GI Narrative: Minimal right upper quadrant tenderness to palpation. Back/Spine normal ROM and normal to inspection Extremity normal to inspection and full ROM Neuro oriented x3, CN's II-XII intact bilaterally, moves all extremities, no focal motor deficits and no sensory deficits noted Sensorium / Orientation: awake and alert Psych mental status grossly normal and thought process normal Skin no rashes or lesions noted and no wounds MDM MDM MDM Narrative Medical decision making narrative: Patient presenting today with multiple vague complaints. She reports that she had outpatient labs done that showed elevated AST and ALT, she has a history of a liver transplant in 2018, she follows with Dr. June. She has had dyspnea with exertion over the last few days, intermittent lightheadedness and nausea, fatigue, and would like her ammonia levels to be checked. She is nontoxic- appearing and in no acute distress, her vitals are unremarkable. Labs obtained, CBC shows a platelet count of 92, she has had thrombocytopenia in the past. Glucose is 200, potassium 3.4, creatinine 1.2 which is slightly elevated from previous labs, UA shows 500 leukocytes and 1+ bacteria, she does not have any dysuria or frequency to indicate UTI. Given her dyspnea and previous history of blood clot, CTA will be obtained to rule out PE, this is negative. CT of the abdomen pelvis with IV contrast obtained given her intermittent left lower quadrant abdominal pain, this shows esophageal and upper abdominal portosystemic varices, she does have a history of varices and has had to have banding in the past. I did recommend that she follow-up closely with her PCP and Dr. June, her GI doctor. Return instructions were discussed and patient discharged home in stable condition. Lab Data Attestation: I reviewed the patient's lab results. Labs: Laboratory Results - last 24 hr 05/20/24 05/20/24 14:11 14:15 WBC 7.0 RBC 4.74 Hgb 13.6 Hct 39.4 MCV 83.1 MCH 28.7 MCHC 34.5 RDW Std Deviation 39.6 RDW Coeff of Nicole 13.1 Plt Count 92 L MPV 10.9 Immature Gran % (Auto) 0.400 Neut % (Auto) 68.3 Lymph % (Auto) 23.0 [place] % (Auto) 7.7 Eos % (Auto) 0.3 Baso % (Auto) 0.3 Absolute Neuts (auto) 4.8 Absolute Lymphs (auto) 1.61 Nucleated RBC % 0 PT 15.4 H INR 1.2 Sodium 136 Potassium 3.4 L Chloride 103 Carbon Dioxide 25.0 Anion Gap 8 BUN 11 Creatinine 1.21 H Estim Creat Clear Calc 48.66 Est GFR (MDRD) Af Amer 59 L Est GFR (MDRD) Non-Af 49 L BUN/Creatinine Ratio 9.1 L Glucose 200 H Calcium 8.8 Total Bilirubin 0.90 AST 32 ALT 27 Alkaline Phosphatase 107 Ammonia 17.0 Troponin I High Sens 7 B-Natriuretic Peptide 33.8 Total Protein 7.2 Albumin 3.2 Globulin 4.0 Albumin/Globulin Ratio 0.8 L Urine Color Yellow Urine Clarity Clear Urine pH 6.0 Ur Specific [place] 1.015 Urine Protein 15 H Urine Glucose (UA) Normal Urine Ketones Negative Urine Occult Blood Negative Urine Nitrite Negative Urine Bilirubin Negative Urine Urobilinogen 1 H Ur Leukocyte Esterase 500 H Urine RBC 0 SEEN Urine WBC 0-5 SEEN Ur Squamous Epith Cells 0-5 SEEN Ur Transition Epith Cell 0-5 SEEN Urine Bacteria 1+ Urine Mucus 0 SEEN Radiography Diagnostic Testing: Clinical Impression(s) from Imaging Studies Chest X-Ray 05/20/24 13:37 IMPRESSION: No acute abnormality is seen. Electronically Signed: Terrance Kim MD at 15:27 EST , Abdomen/Pelvis CT 05/20/24 13:50 IMPRESSION: No acute abnormality is seen. However it appears the patient is developing esophageal and upper abdominal portosystemic varices suggestive of portal venous hypertension. Electronically Signed: Herve Henriquez MD at 19:00 EST , Chest CTA 05/20/24 13:50 IMPRESSION: Normal CTA chest examination, without a demonstrated pulmonary embolism or arterial dissection. Electronically Signed: Terrance Kim MD at 15:32 EST , EKG Initial EKG: Comments: 89 bpm, normal sinus rhythm, no ST elevation, interpreted by attending ED physician Discharge Plan Triage Chief Complaint: Abn Labs ED Midlevel Provider: Denise Mayo ED Provider: Apolinar Kamara Dx/Rx/DC Orders Clinical Impression: History of liver transplant, Fatigue, Esophageal varices, NORRIS (dyspnea on exertion) Instructions: ED Dyspnea Prescriptions: No Action zolpidem [Ambien] 10 mg tablet 10 mg PO QHS citalopram 40 mg tablet 40 mg PO DAILY 30 Days Qty: 30 2RF pantoprazole [Protonix] 40 mg tablet,delayed release (DR/EC) 40 mg PO DAILY 90 Days Qty: 90 3RF naratriptan 2.5 mg tablet 2.5 mg .ROUTE .COMPLEX Qty: 9 6RF Rx Instructions: Take 1 tablet orally every 4 hours as needed for headache up to 2 tablets daily. ropinirole 1 mg tablet 1 mg PO QHS PRN (Reason: RLS) Qty: 30 4RF oxcarbazepine 150 mg tablet 150 mg PO QDAY Qty: 60 5RF albuterol sulfate 1 INHALER inhaler 1 - 2 puff inhalation Q4H PRN PRN (Reason: breathing) metformin 500 MG tablet 500 mg PO DAILY hydroxyzine HCl 25 mg tablet 25 mg PO Q4H PRN PRN (Reason: Anxiety) Patient Comments: TAKE 1 TABLET BY MOUTH UP TO 6 TIMES DAILY NEEDED mirabegron [Myrbetriq] 50 mg tablet extended release 24 hr 50 mg PO QHS Patient Comments: Take 1 tablet orally once daily fluticasone propion-salmeterol [Wixela Inhub] 100-50 mcg/dose blister with device 1 ea INHALATION BID mycophenolate mofetil [CellCept] 250 mg capsule 250 mg PO BID 30 Days Qty: 60 2RF carbamazepine 100 mg tablet,chewable 100 mg PO TID Qty: 90 6RF phenytoin sodium extended 100 mg capsule 100 mg PO TID Qty: 90 4RF tacrolimus 1 mg capsule 2 mg PO Q12H Qty: 120 2RF entecavir 0.5 mg tablet 0.5 mg PO DAILY 30 Days Qty: 30 2RF Primary Care Provider: Geeta Odell Referrals: Geeta Odell MD [Primary Care Provider] - 5-7 Days Activity Restrictions/Additional Instructions: Follow-up with your PCP and return for any other concerns. Print Language: Turkish Disposition Disposition: Home, Self Care Discharge Date/Time: 05/20/24 19:30
[2024-05-20 14:21] LABS: Mucous, Urine 0 SEEN /hpf (<or=2+); Red Blood Cells-Urine 0 SEEN /hpf (0-5)
[2024-05-20 14:24] LABS: Absolute Lymphocyte Count 1.61 X10^3/uL (0.83-4.51); Absolute Neutrophil Count 4.8 X10^3/uL (2.0-7.7); Basophil# 0.02 X10^3/uL; Basophil% 0.3 % (0-1); Eosinophil# 0.02 X10^3/uL; Eosinophils% 0.3 % (0-5); Hematocrit 39.4 % (37-47); Hemoglobin 13.6 g/dL (12.0-15.0); Lymphocyte # 1.61 X10^3/ul (0.83-4.51); Mean Corp Hgb Conc 34.5 g/dL (32-36); Mean Corpuscular Hgb 28.7 pg (27.0-32.0); Mean Corpuscular Volume 83.1 fL (81-99); Mean Platelet Vol. 10.9 fl (6.2-12.0); Monocyte# 0.54 X10^3/uL; Monocyte% 7.7 % (0-10); NRBC Flagged by Analyzer 0 % (0-5); Neutrophil # 4.78 X10^3/uL (2.7-7.7); Neutrophil % 68.3 % (47-70); POSITIVE COUNT YES; Platelet Count 92 K/mm3 (150-450); RBC Distribution Width CV 13.1 % (11.6-14.6); RBC Distribution Width SD 39.6 fl (35.1-43.9); Red Blood Count 4.74 M/mm3 (4.2-5.4)
[2024-05-20 14:28] LABS: Color, Urine Yellow (Yellow); Glucose, Dipstick Normal (Normal); Ketone-Dipstick Negative (Negative); Leukocyte Esterase-Dipstick 500 /ul (Negative); Nitrite-Dipstick Negative (Negative); Occult Blood-Urine Negative /ul (Negative); Protein-Dipstick 15 mg/dl (Negative); Specific Gravity, Urine 1.015 (1.002-1.030); Urine Bilirubin Dipstick Negative (Negative); Urine Clarity Clear (Clear); Urine Urobilinogen 1 mg/dl (Normal)
[2024-05-20 14:33] LABS: International Normalized Ratio 1.2; Prothrombin Time (Protime)PT. 15.4 SECONDS (11.7-14.9)
[2024-05-20 14:35] LABS: Bacteria 1+ /hpf (None Seen); Squamous Epithelial Cells - UA 0-5 SEEN /hpf (5-10); Transitional Epithelial - Ur 0-5 SEEN /hpf (0-5); White Blood Cells 0-5 SEEN /hpf (0-5)
[2024-05-20 14:41] LABS: ALB/GLOB Ratio 0.8 RATIO (0.9-2.4); AST(SGOT) 32 U/L (15-37); Alanine Aminotransfer ALT/SGPT 27 U/L (13-56); Albumin, Serum 3.2 g/dL (3.2-5.0); Alkaline Phosphatase 107 U/L (45-117); Anion Gap 8 (5-15); BUN 11 mg/dL (7-18); BUN/Creat Ratio 9.1 RATIO (10-20); Calcium,Total 8.8 mg/dL (8.5-10.1); Chloride 103 mmol/L (98-107); Creatinine, Serum 1.21 mg/dL (0.55-1.02); EST Glomerular Filtration Rate 49 mL/min (>60); Est Glom Filt Rate - Afr Amer 59 mL/min (>60); Estimated Creatinine Clearance 48.66 ml/min; Glucose 200 mg/dL (74-106); Potassium 3.4 mmol/L (3.5-5.1); Protein, Total 7.2 g/dL (6.4-8.2); Sodium Level 136 mmol/L (136-145); Troponin-I HS 7 pg/mL (3.0-54.0)
[2024-05-20 15:17] VITALS: BP 132/86; PULSE 84
[2024-05-20 16:10] LABS: BNP,B-Type NATRIURETIC PEPTIDE 33.8 pg/mL (0-100)
[2024-05-20 17:00] VITALS: BP 126/89
[2024-05-20 19:00] VITALS: BP 136/89; PULSE 87
== END 2024-05-20 19:30 | disposition home or self-care (01) ==
PROVIDERS: Physician Assistant; Emergency Provider Emergency Medicine; PCP Family Medicine; Visit Provider Emergency Medicine
DX: R53.83 Other fatigue (principal); I85.00 Esophageal varices without bleeding; Z94.4 Liver transplant status; J44.9 Chronic obstructive pulmonary disease, unspecified; E11.40 Type 2 diabetes mellitus with diabetic neuropathy, unspecified; R42 Dizziness and giddiness; R11.0 Nausea; Z86.718 Personal history of other venous thrombosis and embolism; R06.00 Dyspnea, unspecified; Z90.710 Acquired absence of both cervix and uterus; Z98.1 Arthrodesis status; Z90.49 Acquired absence of other specified parts of digestive tract; Z86.16 Personal history of COVID-19
CPT/HCPCS: 71046; 71275; 74177; 80053; 81001; 82140; 83880; 84484; 85025; 85610; 93005; 99283; Q9967; A4216

== ENCOUNTER → 2024-05-21 | Outpatient (CLI) | payer MEDICARE, MEDICAID, SELFPAY | END | disposition home or self-care (01) | PROVIDERS: PCP Family Medicine; Referring Provider Family Medicine; Visit Provider Family Medicine | DX: J98.8 Other specified respiratory disorders (principal); Z94.4 Liver transplant status; B97.89 Other viral agents as the cause of diseases classified elsewhere | CPT/HCPCS: 87631 ==

== ENCOUNTER → 2025-01-06 | Outpatient (CLI) | payer MEDICARE, MEDICAID, SELFPAY ==
--- NOTE | 2025-01-06 07:45 | CT_ITS ---
PROCEDURE: CHEST WITH CONTRAST 01/06/2025 REASON FOR EXAM: ABNORMAL CXR, NODULAR AREA IN R UPPER LUNG ZONE TECHNIQUE: CHEST WITH CONTRAST Coronal and Sagittal reconstruction series were provided. CONTRAST: Isovue 370 VOLUME: 75 mL One or more dose reduction techniques were used (e.g., Automated exposure control, adjustment of the mA and/or kV according to patient size, use of iterative reconstruction technique). RADIATION DOSE SUMMARY: CTDlvol: 20 mGy DLP: 343 mGycm COMPARISON: 05/20/2024 FINDINGS: Unremarkable base of neck and axilla. Normal esophagus. Normal heart size. No acute vascular pathology. Old rib fractures. No acute chest wall pathology. No acute upper abdominal pathology. There may be splenic enlargement, the spleen is incompletely imaged. Consider splenic ultrasound. There is gastrohepatic adenopathy and/or collateral vessels. Correlate for possible pulmonary arterial hypertension. Central airways are patent. Under aerated lungs. No consolidation, effusion or pneumothorax. CT/Chest WITH Contrast IMPRESSION: No acute chest findings Reading Location: [place] [id number]
--- OUTSIDE RECORDS SUMMARY | 2025-01-06 08:05 | XMS RPT_ITS | CCD ---
Author Organization [facility] Care Team Providers Care [employer] Machine Tender Name Role Phone REFERRING, PHY WO ID Unavailable Unavailable SARA, ANNA Unavailable Unavailable SARA, ANNA Unavailable Unavailable REFERRING, PHY WO ID Unavailable Unavailable SARA, ANNA Unavailable Unavailable SARA, ANNA Unavailable Unavailable Desmond Dominic H Unavailable Unavailable RudDominic conklin H Unavailable Unavailable Dr. Geeta Odell Primary Care Provider 1([facility]) Dr. Raoul June Attending Provider 1([facility]) Dr. Raoul June Referring Provider 1([facility]) Dr. Raoul June Other Provider 1([facility]) Dr. Geeta Odell Referring Provider 1([facility])[phone] Dr. Kedar Bunch Attending Provider 1([facility])12 Dr. Geeta Odell Primary Care Provider 1([facility]) Dr. Geeta Odell Referring Provider 1([facility])[phone] Geeta Odell Primary Care Provider 1([facility]) Dr. Geeta Odell Referring Provider [phone] Dr. Kedar Bunch Attending Provider [phone] Dr. Raoul June Attending Provider 1([facility]) Dr. Raoul June Other Provider 1([facility]) FERNANDA Westbrook Attending Provider [phone] Dr. Lg Saba Attending Provider 1([facility])57 Dr. Geeta Odell Primary Care Provider 1([facility]) Dr. Geeta Odell Referring Provider [phone] Kedar Bunch Attending Provider [phone] Kedar Bunch Referring Provider [phone] Geeta Odell Primary Care Provider [phone] Dr. Geeta Odell Referring Provider [phone] FERNANDA Westbrook Attending Provider [phone] Dr. Lg Saba Attending Provider [phone] Friend, Dr. Silveira Attending Provider [phone] Dr. Kedar Bunch Attending Provider [phone] Dr. Kedar Bunch Referring Provider [phone] Dr. Geeta Odell Primary Care Provider [phone] Dr. Geeta Odell Referring Provider [phone] Lg Saba Attending Provider [phone] Jose R BROOKS [place] [facility] Provider Jose R BROOKS [place] Primary [facility] Provider Kedar Bunch MD Unavailable [facility] Referring Unavailable [facility] Primary Care Unavailable RANJAN HOLLAND Attending Unavailable VELMA JULIEN Attending Unavailable SELF, SELF Referring Unavailable [facility] Primary Care Unavailable ROE DUTTA Attending Unavailable VELMA JULIEN Referring Unavailable [facility] Primary Care Unavailable ROE DUTTA Attending Unavailable VELMA JULIEN Referring Unavailable [facility] Primary Care Unavailable ROE DUTTA Attending Unavailable ROE DUTTA Referring Unavailable [facility] [place] [facility] Primary Care Unavailable [facility] Referring Unavailable [facility] [place] Primary Care Unavailable VELMA JULIEN Attending Unavailable VELMA JULIEN Attending Unavailable [facility] Primary Care Unavailable ROSEMARIE MITCHELL Referring Unavailab le VELMA JULIEN Admitting Unavailable MIEDEL, GEETA Primary Care Physician [phone] MIEDEL, GEETA Primary Care Unavailable ANURADHA BROOKS, DARIO Okeefe Attending Unavail able Miedel, Geeta Primary Care Unavailable Miedel, Geeta Referring Unavailable Miedel, Geeta Attending Unavailable Miedel, Geeta Primary Care Unavailable Friend, Raoul Attending Unavailable Miedel, Geeta Attending Unavailable Miedel, Geeta Primary Care Unavailable Miedel, Geeta Referring Unavailable Miedel, Geeta Primary Care Unavailable Baddour, Kedar Attending Unavailable Baddour, Kedar Referring Unavailable Miedel, Geeta Primary Care Unavailable Baddour, Kedar Referring Unavailable Baddour, Kedar Attending Unavailable Miedel, Geeta Primary Care Unavailable Baddour, Kedar Attending Unavailable Baddour, Kedar Referring Unavailable Miedel, Geeta Primary Care Unavailable Baddour, Kedar Attending Unavailable Baddour, Kedar Referring Unavailable Miedel, Geeta Primary Care Unavailable Miedel, Geeta Referring Unavailable Baddour, Kedar Attending Unavailable Miedel, Geeta Primary Care Unavailable Miedel, Geeta Referring Unavailable Friend, Raoul Attending Unavailable Miedel, Geeta Primary Care Unavailable Baddour, Kedar Referring Unavailable Baddour, Kedar Attending Unavailable Miedel, Geeta Primary Care Unavailable Baddour, Kedar Referring Unavailable Baddour, Kedar Attending Unavailable Miedel, Geeta Primary Care Unavailable Miedel, Geeta Referring Unavailable Miedel, Geeta Attending Unavailable Miedel, Geeta Primary Care Unavailable Apolinar Kamara Attending Unavailable Miedel, Geeta Primary Care Unavailable Ungur, Remus Attending Unavailable Miedel, Geeta Primary Care Unavailable Friend, Raoul Referring Unavailable Friend, Raoul Attending Unavailable Miedel, Geeta Primary Care Unavailable Friend, Raoul Referring Unavailable Friend, Raoul Attending Unavailable Allergies Allergy Classification Reported Allergen(s) Allergy Type Date of Onset Reaction(s) Facility (17 sources) diphenhydrAMINE; Translations: [diphenhydramine HCl] Drug Allergy 08-24-19 22 "climb the rose" [facility] (17 sources) LORazepam; Translations: [lorazepam] Drug Allergy 08-24-19 "Climb the rose" [facility] (17 sources) Prochlorperazine; Translations: [prochlorperazine maleate] Drug Allergy 08-24-19 "climb out of my body" [facility] (17 sources) Promethazine; Translations: [promethazine HCl] Drug Allergy 08-24-19 "climb the rose" [facility] (16 sources) Sulfamethoxazole Drug Allergy 08-24-19 Fever and skin rash [facility] (17 sources) topiramate; Translations: [topiramate] Drug Allergy 08-24-19 Other [facility] (16 sources) traMADol Drug Allergy 08-24-19 "climb the rose" [facility] (16 sources) Trimethoprim Drug Allergy 08-24-19 Fever and skin rash [facility] (17 sources) prochlorperazine edisylate; Translations: [prochlorperazine edisylate] Propensity to adverse reactions 08-24-19 "climb the rose" [facility] (4 sources) Lorazepam Propensity to adverse reactions to drug 02-10-20 09 Anxiety, Confusion [facility] (5 sources) Promethazine; Translations: [promethazine] Drug Allergy 02-10-[address] [facility] (5 sources) Sulfamethoxazole / Trimethoprim; Translations: [sulfamethoxazole-t rimethoprim] Drug Allergy 06-12-20 18 Fever, Fever (finding) [facility] (4 sources) Topiramate Propensity to adverse reactions to drug 11-19-[address] [facility] (2 sources) diphenhydrAMINE Drug Allergy 08-28-[address] [facility] (3 sources) Prochlorperazine; Translations: [prochlorperazine] Drug Allergy 08-28-[address] [facility] (1 source) Amoxicillin / Clavulanate; Translations: [amoxicillin-clavul anate] Drug Allergy [facility] (1 source) diphenhydrAMINE; Translations: [diphenhydramine] Drug Allergy [facility] (1 source) LORazepam Drug Allergy 05-20-20 [facility] (1 source) Sulfamethoxazole Drug Allergy 05-20-20 [facility] (1 source) topiramate Drug Allergy 05-20-20 [facility] (1 source) traMADol Drug Allergy 05-20-20 [facility] (1 source) Trimethoprim Drug Allergy 05-20-20 [facility] Medications Current Medications Medication Drug Class(es) Dates Sig (Normalized) Sig (Original) acetaminophen 325 mg oral tablet (4 sources) Start: 09-17-2024 End: 09-17-2024 take 2 tablets by mouth every six hours as needed Acetaminophen 325 MG tablet Take 2 tablets by mouth every 6 hours as needed for Mild Pain. 30 tablet 09/17/2024 3:29 PM EDT 09/17/2024 Active Start: 09-17-2024 End: 09-17-2024 take 1 tablet by mouth every six hours as needed 650 mg, Oral, EVERY 6 HOURS NEEDED, Starting on Fri09/17/24 at 0737, Until Fri09/17/24 at 1753, Mild Pain, Maximum dose of acetaminophen is 4000 mg from all sources in 24 hours., Post-op/Post-Proc ALPRAZolam 0.5 mg oral tablet (14 sources) Benzodiazepine Start: 05-15-2022 Alprazolam Act serge 0.5 MG PO .COMPLEX 1 May 15, 2022 12:00am 0.5 mg orally x1 30 minutes prior to MRI Start: 12-13-2021 End: 03-12-2022 take 1 mg by mouth twice daily Alprazolam Discontinued 1 MG PO TWICE A DAY December 12, 2021 11:00pm March 12, 2022 3:38pm aspirin 325 mg delayed release oral tablet (17 sources) Platelet Aggregation Inhibitor, Nonsteroidal Anti-inflammatory Drug Start: 04-21-2019 take 1 mg by mouth once daily aspirin 325 mg oral delayed release tablet mg = tab(s), Oral, qDay, 0 Refill(s) Start Date: 04/21/19 Status: Ordered Repeat number: 1 Start: 03-03-2019 End: 04-09-2021 take 81 mg by mouth once daily Aspirin Discontinued 81 MG PO DAILY@0800 March 02, 2019 11:00pm April 09, 2021 9:04am Blood Glucose Test Machine (1 source) Start: 01-28-2020 Blood Glucose Test Machine See Instructions, QS for testing BID. E11.9, # 1 EA, 11 Refill(s), Pharmacy: [id number], Diabetes mellitus, 162.6, cm, 01/28/20 13:27:00 EDT, Height, 77.9, kg, 01/28/20 13:27:00 EDT, Dosing Weight Start Date: 01/28/20 Status: Ordered Quantity: 1.0 Unit: EA Repeat number: 12 Indications: Type 2 diabetes mellitus without complications; 24 hr buPROPion hydrochloride 150 mg extended release oral tablet (1 source) Aminoketone Start: 12-28-2019 take 1 tablet by mouth every hour, then take 1 tablet by mouth every twenty-four hours buPROPion 150 mg/24 hours (XL) oral tablet, extended release Dose : 150 mg = 1 tab(s), Oral, q24h, # 30 tab(s), 3 Refill(s), Pharmacy: [facility], 163.5, cm, 12/28/19 13:15:00 EDT, Height, kg, 12/28/19 13:15:00 EDT, Dosing Weight Start Date: 12/28/19 Status: Ordered Quantity: 30.0 Unit: tab(s) Repeat number: 4 calcium carbonate 1500 mg oral tablet (1 source) Start: 01-25-2019 calcium (as carbonate) 600 mg oral tablet Dose : 600 mg = 1 tab(s), Oral, BIDM, 0 Refill(s) Start Date: 01/25/19 Status: Ordered Repeat number: 1 cephalexin 500 mg oral capsule (1 source) Cephalosporin Antibacterial Start: 11-21-2021 take 500 mg by mouth twice daily Cephalexin Active 500 MG PO TWICE A DAY 14 November 21, 2021 5:17am Disability Placard (4 sources) Start: 05-15-2022 Disability Placard Active 0 .Route .MEDSUPPLY May 15, 2022 12:00am Expiration: 05/15/2025 DULoxetine 60 mg delayed release oral capsule (18 sources) Serotonin and Norepinephrine Reuptake Inhibitor Start: 11-02-2021 take 30 mg by mouth once daily Duloxetine Active 30 MG PO DAILY November 02, 2021 11:45pm Start: 11-02-2021 End: 03-12-2022 take 60 mg by mouth once daily Duloxetine Discontinued 60 MG PO DAILY November 01, 2021 11:00pm March 12, 2022 3:39pm begin after completing one week course of duloxetine 30mg daily entecavir 0.5 mg oral tablet (20 sources) Hepatitis B Virus Nucleoside Analog Reverse Transcriptase Inhibitor Start: 12-25-2018 End: 09-17-2024 take 1 tablet by mouth once daily in the morning Entecavir 0.5 MG tablet Take 1 tablet by mouth daily every morning. 30 tablet 09/17/2024 3:29 PM EDT 09/17/2024 Active fluconazole 100 mg oral tablet (9 sources) Azole Antifungal Start: 03-07-2022 take 100 mg by mouth once daily Fluconazole Active 100 MG PO DAILY March 06, 2022 11:00pm 30 actuat fluticasone furoate 0.1 mg/actuat / vilanterol 0.025 mg/actuat dry powder inhaler (18 sources) Corticosteroid, beta2-Adrenergic Agonist Start: 11-19-2020 Fluticasone Furoate-Vilantero l (Breo Ellipta) 100-25 mcg/dose blister with device Active 2 EACH INHALATION DAILY November 18, 2020 11:00pm take 1 puff(s) by in halation once daily Fluticasone Furoate-Vilanterol (Breo Ell ipta) 100-25 MCG/ACT Aerosol Powder, breath activated Inhale 1 puff daily. Active Fluticasone Furoate-Vilanter ol (Breo Ellipta) 100-25 mcg/dose blister with device (2 sources) Start: 11-19-2020 Fluticasone Fu roate-Vilanterol (Breo Ellipta) 100-25 mcg/dose blister with device Active 2 EACH INHALATION DAILY November 19, 2020 9:49am Start: 11-19-2020 Fluticasone Fu roate-Vilanterol (Breo Ellipta) 100-25 mcg/dose blister with device Active 2 EACH INHALATION DAILY November 19, 2020 12:00am gabapentin 100 mg oral capsule (4 sources) Anti-epileptic Agent Start: 05-15-2022 take 100 mg by mouth three times daily Gabapentin Active 100 MG PO THREE TIMES A DAY 90 May 15, 2022 12:00am glipiZIDE er 5 mg 24 hr extended release oral tablet (1 source) Sulfonylurea Start: 05-16-2020 glipiZIDE 5 mg oral tablet, extended release Dose : 5 mg = 1 tab(s), Oral, qDayM, # 90 tab(s), 3 Refill(s), Pharmacy: [facility], 162.6, cm, 05/16/20 13:54:00 EST, Height, kg, 05/16/20 13:54:00 EST, Dosing Weight Start Date: 05/16/20 Status: Ordered Quantity: 90.0 Unit: tab(s) Repeat number: 4 hydrOXYzine hydrochloride 25 mg oral tablet (17 sources) Antihistamine Start: 10-30-2020 take 25 mg by mouth every four hours as needed Hydroxyzine Hcl Active 25 MG PO EVERY 4 HOURS NEEDED March 11, 2021 11:00pm 3 ml insulin glargine 100 unt/ml pen injector (9 sources) Insulin Analog Start: 03-07-2022 Insulin Glargine (Basaglar Kwikpen U-100 Insulin) 100 unit/mL (3 mL) insulin pen Active ML SC March 06, 2022 11:00pm medicinal cannabis (MEDICINAL MARIJUANA) (4 sources) metFORMIN hydrochloride 500 mg oral tablet (20 sources) Biguanide Start: 09-12-2020 take 500 mg by mouth once daily Metformin Active 500 MG PO DAILY September 11, 2020 11:00pm Start: 02-22-2020 take 2 tablets by mo [facility] in the morning, then take 1 tablet by mouth in the evening metFORMIN 500 mg oral tablet See Instructions, 2 tabs in AM, 1 in PM, # 90 tab(s), 11 Refill(s), Pharmacy: [facility], 164.5, cm, 02/22/20 14:45:00 EDT, Height, kg, 02/22/20 14:45:00 EDT, Dosing Weight Start Date: 02/22/20 Status: Ordered Quantity: 90.0 Unit: tab(s) Repeat number: 12 methocarbamol 750 mg oral tablet (20 sources) Muscle Relaxant Start: 09-16-2024 End: 09-17-2024 take 1 tablet by mouth three times daily in the evening Methocarbamol 750 MG tablet Take 1 tablet by mouth 3 times daily. 30 tablet 09/17/2024 3:29 PM EDT 09/17/2024 Active Start: 06-03-2022 take 1-2 tablets by mouth twice daily as needed for pain Methocarbamol Active 0 PO .COMPLEX 120 June 03, 2022 12:00am One to two tablets orally BID prn pain Start: 02-13-2021 End: 04-09-2021 take 750 mg by mouth three times daily Methocarbamol Discontinued 750 MG PO THREE TIMES A DAY 90 February 12, 2021 11:00pm April 09, 2021 10:17am Methylcobalamin 96345 MCG Recon Soln (1 source) Methylcobalamin 11504 MCG Recon Soln Inject as directed Once a week. Active naproxen 250 mg oral tablet (1 source) Nonsteroidal Anti-inflammatory Drug Start: End: naproxen 250 mg oral tablet Dose : 250 mg = 1 tab(s), Oral, BID, PRN as needed for pain, # 20 tab(s), 0 Refill(s), 11/27/24 5:37:00 PM EDT Start Date: 11/19/24 Stop Date: 11/27/24 Status: Ordered Quantity: 20.0 Unit: tab(s) Repeat number: 1 naratriptan 2.5 mg oral tablet (4 sources) Serotonin-1b and Serotonin-1d Receptor Agonist naratriptan 2.5 MG tablet Take 1 tablet by mouth as needed. max 5mg/day; may repeat in 4 hr x1 Active oxyCODONE hydrochloride 5 mg oral tablet (20 sources) Opioid Agonist Start: End: take 1 tablet by mouth every four hours as needed for pain oxyCODONE 5 MG tablet Indications: Seizure disorder Take 1 tablet by mouth every 4 hours as needed for Moderate Pain or Severe Pain for up to 3 days. 12 tablet 09/17/2024 3:29 PM EDT 09/17/2024 Active Start: 09-15-2024 End: 09-17-2024 take 1 tablet by mouth every four hours as needed oxyCODONE (ROXICODONE) tablet 5 mg Start: 12-21-2021 End: 12-31-2021 take 5 mg by mouth every six hours Oxycodone Discontinued 5 MG PO EVERY 6 HOURS 40 December 21, 2021 December 30, 2021 11:03pm Start: 12-21-2021 End: 03-12-2022 take 5 mg by mouth three times daily Oxycodone Discontinued 5 MG PO THREE TIMES A DAY 21 January 04, 2022 January 10, 2022 11:04pm Start: 12-21-2021 End: 02-12-2022 take 5 mg by mouth every eight hours Oxycodone Discontinued 5 MG PO Q8H 15 February 07, 2022 February 11, 2022 11:04pm Start: 12-07-2021 End: 12-16-2021 take 5-10 mg by mouth every six hours as needed Oxycodone Discontinued 5 - 10 MG PO .COMPLEX 56 5 December 11, 2021 December 15, 2021 11:04pm 5 - 10 mg orally Q6H, PRN Start: 11-29-2021 End: 12-05-2021 Oxycodone Discontinued 5 - 1 0 MG PO .COMPLEX 60 5 November 30, 2021 December 04, 2021 11:03pm 5 - 10 mg orally [id number] PRN Start: 07-09-2019 End: 02-17-2020 take 5 mg by mouth every six hours as needed Oxycodone Discontinued 5 MG PO EVERY 6 HOURS NEEDED 12 August 20, 2019 August 22, 2019 11:09pm Start: 05-29-2019 End: 06-02-2019 take 5 mg by mouth every six hours as needed Oxycodone Discontinued 5 MG PO EVERY 6 HOURS NEEDED 14 May 29, 2019 June 02, 2019 12:12am Start: 03-24-2018 End: 03-29-2018 take 5 mg by mouth every four hours as needed Oxycodone Discontinued 5 MG PO EVERY 4 HOURS NEEDED 20 March 23, 2018 11:00pm March 28, 2018 11:09pm Start: 06-20-2017 End: 06-25-2017 take 1 tablet by mouth every six hours as needed Oxycodone Discontinued 1 - 2 TABLET PO EVERY 6 HOURS NEEDED June 20, 2017 12:00am June 25, 2017 9:36am pantoprazole 40 mg delayed release oral tablet (11 sources) Proton Pump Inhibitor Start: 04-22-2022 End: 09-17-2024 take 1 tablet by mouth once daily in the morning Pantoprazole (Protonix) [address] tablet DR Indications: Continuation of Home Therapy Take 1 tablet by mouth daily every morning. 30 tablet 09/17/2024 3:29 PM EDT 09/17/2024 Active rizatriptan 10 mg oral tablet (4 sources) Serotonin-1b and Serotonin-1d Receptor Agonist Start: 05-15-2022 take 3 tablets by mouth once daily as needed Rizatriptan Active 10 MG PO .COMPLEX May 15, 2022 12:00am 10 mg orally every two hours as needed for headache up to three tablets per day tiZANidine 4 mg oral tablet (8 sources) Central alpha-2 Adrenergic Agonist Start: 03-28-2022 End: 05-15-2022 take 2 tablets by mouth at bedtime as needed for muscle spasms, then take 0.5 tablet by mouth twice daily as needed for muscle spasms Tizanidine Active 0 PO .COMPLEX May 15, 2022 2:22pm Take 2 tablets orally at bedtime and 1/2 tablet twice a day as needed for muscle spasms. Vitamin B Complex (15 sources) Start: 11-01-2021 take 1 capsule by mouth once daily Vitamin B Complex Active 1 CAP PO DAILY November 01, 2021 2:45pm Start: 11-01-2021 take 1 capsule by mouth once d aily Vitamin B Complex Active 1 CAP PO DAILY October 31, 2021 11:00pm Start: 11-01-2021 take 1 capsule by mouth once d aily Vitamin B Complex Active 1 CAP PO DAILY November 01, 2021 12:00am Vitamin D3 5000 intl units o ral capsule (1 source) Start: 10-28-2017 Vitamin D3 500 0 intl units oral capsule Dose : 5,000 unit(s) = 1 cap(s), Oral, qDay, 0 Refill(s) Start Date: 10/28/17 Status: Ordered Repeat number: 1 Completed/Discontinued Medications Medication Drug Class(es) Dates Sig (Normalized) Sig (Original) acetaminophen 325 mg / HYDROcodone bitartrate 5 mg oral tablet (20 sources) Opioid Agonist Start: 04-10-2019 End: 04-15-2019 take 1 tablet by mouth every six hours as needed Hydrocodone-Acetami nophen Discontinued 1 TABLET PO EVERY 6 HOURS NEEDED 10 April 10, 2019 April 14, 2019 11:10pm Start: 09-21-2018 End: 09-24-2018 take 1 tablet by mouth every six hours as needed Hydrocodone-Acetaminophen Discontinued 1 TABLET PO EVERY 6 HOURS NEEDED 10 September 20, 2018 11:00pm September 23, 2018 11:08pm acetaminophen 325 mg / oxyCODONE hydrochloride 5 mg oral tablet (20 sources) Opioid Agonist Start: 04-20-2020 End: 04-23-2020 take 1 tablet by mouth every six hours as needed Oxycodone-Acetaminophen Discontinued 1 TABLET PO EVERY 6 HOURS NEEDED 12 April 20, 2020 April 23, 2020 12:02am Start: 01-08-2019 End: 01-11-2019 take 1 tablet by mouth every six hours as needed Oxycodone-Acetaminophen Discontinued 1 TABLET PO EVERY 6 HOURS NEEDED 12 January 08, 2019 January 10, 2019 11:07pm [id number] 200 actuat albuter ol 0.09 mg/actuat metered dose inhaler (20 sources) beta2-Adrenergic Agonist Start: 09-15-2024 End: 09-17-2024 Start: 02-08-2018 take 1 puff(s) by in halation every four hours as needed Albuterol Sulfate Active 1 - 2 PUFF INHALATION EVERY 4 HOURS NEEDED February 08, 2018 2:58pm Start: 02-08-2018 take 1 puff(s) by in halation every four hours as needed Albuterol Sulfate Active 1 - 2 PUFF INHALATION EVERY 4 HOURS NEEDED February 07, 2018 11:00pm Start: 02-08-2018 take 1 puff(s) by in halation every four hours as needed Albuterol Sulfate Active 1 - 2 PUFF INHALATION EVERY 4 HOURS NEEDED February 08, 2018 12:00am Start: 01-17-2017 End: 11-04-2017 take 1 puff(s) by inhalation every two hours as needed Albuterol Sulfate (Proventil Hfa) 6.7 GM Hfa.Aer.Ad Discontinued 1 - 2 PUFF IH EVERY 2 HOURS NEEDED January 16, 2017 11:00pm November 04, 2017 6:03pm take 1 puff(s) by in halation every four hours as needed Albuterol 108 (90 Base) MCG/ACT Aero Soln inhaler Inhale 1 puff every 4 hours as needed for Shortness of Breath. Active albuterol 0.833 mg/ml / ipratropium bromide 0.167 mg/ml inhalation solution (1 source) Anticholinergic, beta2-Adrenergic Agonist Start: 09-16-2024 End: 09-17-2024 take 3 mL by inhalation every six hours as needed 3 mL, Nebulization, EVERY 6 HOURS NEEDED, Starting on Fri09/16/24 at 0815, Until Fri09/17/24 at 1753, Shortness of Breath, Respiratory Distress, Wheezing albuterol MDI (90 mcg/inh) CFC free inhalation aerosol (1 source) Start: 01-05-2020 End: 07-03-2020 take 2 puff(s) by inhalation every four hours albuterol MDI (90 mcg/inh) CFC free inhalation aerosol 2 puff(s), Inhalation, q4h, # 1 EA, 5 Refill(s), Pharmacy: [id number], Asthma, 162, cm, 01/05/20 9:13:00 EDT, Height, kg, 01/05/20 9:13:00 EDT, Dosing Weight Start Date: 01/05/20 Stop Date: 07/03/20 Status: Ordered Quantity: 1.0 Unit: EA Repeat number: 6 Indications: Unspecified asthma, uncomplicated; amitriptyline hydrochloride 10 mg oral tablet (16 sources) Tricyclic Antidepressant Start: 04-09-2021 End: 05-08-2021 take 10 mg by mouth at bedtime Amitriptyline Discontinued 10 MG PO AT BEDTIME April 08, 2021 11:00pm May 08, 2021 11:40pm aprepitant 40 mg oral capsule (1 source) Substance P/Neurokinin-1 Receptor Antagonist Start: 09-15-2024 End: 09-15-2024 40 mg, Oral, ONCE, 1 dose, On Fri09/15/24 at 0745, Administer 40 mg (1 capsule) ONCE at least 30 minutes prior to induction of anesthesia. Swallow capsules whole. Do NOT crush, chew, or open., Pre-op/Pre-Proc Breo Ellipta 100 mcg-25 mcg/inh inhalation powder (1 source) Start: 11-02-2020 End: 10-28-2021 take 1 dose by inhalation once daily Breo Ellipta 100 mcg-25 mcg/inh inhalation powder Dose = 1 puff(s), Inhalation, Daily, # 3 EA, 3 Refill(s), Pharmacy: [id number], 163, cm, 10/30/20 13:47:00 EDT, Height, kg, 10/30/20 13:47:00 EDT, Dosing Weight Start Date: 11/02/20 Stop Date: 10/28/21 Status: Ordered Quantity: 3.0 Unit: EA Repeat number: 4 calcium carbonate 1250 mg / cholecalciferol 200 unt oral tablet (16 sources) Vitamin D Start: 02-04-2019 End: 04-09-2021 take 1 tablet by mouth twice daily Calcium Carbonate-Vitamin D3 Discontinued 1 TABLET PO TWICE A DAY February 03, 2019 11:00pm April 09, 2021 9:04am carBAMazepine 100 mg chewable tablet (20 sources) Mood Stabilizer Start: 06-26-2021 End: 05-15-2022 take 100 mg by mouth twice daily Carbamazepine Discontinued 100 MG PO TWICE A DAY 60 July 09, 2021 10:49am July 26, 2021 8:16pm Start: 05-14-2021 End: 06-26-2021 take 300 mg by mouth at bedtime Carbamazepine Disconti nued 300 MG PO AT BEDTIME May 14, 2021 12:00am June 26, 2021 10:34am Start: 02-04-2019 End: 05-14-2021 take 400 mg by mouth once daily Carbamazepine Disconti nued 400 MG PO DAILY 60 November 30, 2020 9:57am January 23, 2021 5:23pm Start: 12-02-2013 End: 02-17-2020 take 200 mg by mouth once daily Carbamazepine Disconti nued 200 MG PO DAILY February 03, 2019 11:00pm February 17, 2020 12:07pm ceFAZolin 2000 mg injection (1 source) Cephalosporin Antibacterial Start: 09-15-2024 End: 09-16-2024 take 2 g intravenously every eight hours 2 g, Intravenous, Administer over 30 Minutes, EVERY 8 HOURS NON-STANDARD, 3 doses, First dose on Fri09/15/24 at 1630, Last dose on Fri09/16/24 at 0830, Post-op/Post-Proc citalopram 40 mg oral tablet (20 sources) Serotonin Reuptake Inhibitor Start: 09-15-2024 End: 09-17-2024 take 40 mg by mouth once daily in the morning 40 mg, Oral, DAILY EVERY MORNING, First dose on Fri09/15/24 at 1400, Until Discontinued, Post-op/Post-Proc Start: 07-29-2016 End: 11-18-2021 citalopram 40 mg oral tablet Dose : 40 mg = 1 tab(s), Oral, qDay, # 90 tab(s), 3 Refill(s), Pharmacy: [id number], 164, cm, 11/22/20 11:26:00 EDT, Height, kg, 11/22/20 11:26:00 EDT, Dosing Weight Start Date: 11/23/20 Stop Date: 11/18/21 Status: Ordered Quantity: 90.0 Unit: tab(s) Repeat number: 4 clonazePAM 1 mg oral tablet (20 sources) Benzodiazepine Start: 08-19-2017 End: 02-17-2020 take 2 mg by mouth at bedtime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 tract infectious disease; Translations: [Urinary tract infection, site not specified] 11-29-2021 Episodic Viral infection (20 sources) Disease caused by 2019-nCoV; Translations: [COVID-19] 03-12-2021 Episodic Past or Other Problems Problem Classification Problem Date Documented Da te Episodic/Chronic Coagulation and hemorrhagic disorders (4 sources) Secondary thrombocytopenia; Translations: [Other secondary thrombocytopenia] Onset: 12-03-2016 08-09-2024 Episodic Genitourinary symptoms and ill-defined conditions (4 sources) Edu hematuria; Translations: [Gross hematuria] Onset: 02-09-2009 08-09-2024 Episodic Mood disorders (4 sources) Mood disorders Onset: 08-09-2024 Resolved: 10-11-2024 08-09-2024 Other aftercare (1 source) Other long term care phlebotomist (current) drug therapy; Translations: [Other skilled nursing (current) drug therapy] Onset: 06-11-2024 Episodic Other lower respiratory disease (1 source) Other specified respiratory disorders; Translations: [Other specified respiratory disorders] Onset: 06-24-2024 Episodic Other lower respiratory disease (1 source) Dyspnea, unspecified; Translations: [Dyspnea, unspecified] Onset: 06-22-2024 Episodic Other nervous system disorders (2 sources) Trigeminal neuralgia; Translations: [Trigeminal neuralgia] Onset: 03-07-2024 Episodic Other screening for suspected conditions (not mental disorders or infectious disease) (18 sources) Increased lactic acid level; Translations: [Other specified abnormal findings of blood chemistry] Onset: 07-15-2024 03-23-2021 Episodic Residual codes; unclassified (20 sources) Personal history of other specified conditions; Translations: [Personal history of other specified diseases] Onset: 03-07-2024 Episodic Unclassified (1 source) R16.0 Onset: 12-20-2016 Unclassified (1 source) THROMBOCYTOPENIA, NONALCOHOLIC HEPATOSTEATOSIS, Onset: 05-02-2018 Results Test Name Value Interpretation Reference Range Facility XR CHEST 1 VIEWon 11-19-2024 XR CHEST 1 VIEW ORIGINAL EXAMINATION: ONE XRAY VIEW OF THE CHEST 11/19/2024 5:06 pm COMPARISON: None. HISTORY: ORDERING SYSTEM PROVIDED HISTORY: Reason for Exam: pain after fall FINDINGS: There is hypoinflation with accentuation of the cardiomediastinal silhouette and increased bronchovascular markings. There are focal nodular infiltrates at the medial right upper lung zone. Follow-up CT thorax may be useful for further evaluation. There is no consolidation or pleural effusion. There is no pulmonary vascular congestion. There is no pneumothorax. Osseous structures demonstrate mild degenerative changes. Multiple cervical clips projected at the mid upper abdomen. IMPRESSION: There are focal nodular infiltrates at the medial right upper lung zone. Follow-up CT thorax may be useful for further evaluation. There is no consolidation or pleural effusion. Interpreted by: Lorenzo Irizarry Preliminary Report By: Lorenzo Irizarry Electronically signed By Lorenzo Irizarry Dictated Date: 11/19/2024 5:26:55 PM Prelim Date: 11/19/2024 5:30:21 PM Sign Date: 11/19/2024 5:30:21 PM Ordering Provider: FERNANDO DE LEON [facility] XR SPINE LUMBOSACRAL 2 OR 3 VIEWSon 11-19-2024 XR SPINE LUMBOSACRAL 2 OR 3 VIEWS ORIGINAL EXAMINATION: 3 XRAY VIEWS OF THE LUMBAR SPINE 11/19/2024 5:05 pm COMPARISON: 11/25/2017 HISTORY: ORDERING SYSTEM PROVIDED HISTORY: Reason for Exam: LBP, worse toward rt side s/p fall today pain, fall FINDINGS: There are 5 non rib-bearing lumbar type vertebral bodies. Old deformities of L1 and L2 vertebral bodies. Slight degenerative retrolisthesis of L2 on L3 and L3 on L4. Multilevel degenerative changes of the visualized spine most pronounced at L5-S1. Scattered right upper quadrant surgical clips are noted. IMPRESSION: No acute osseous abnormality by radiograph. I have personally reviewed the images of this examination and agree with the resident's findings and interpretation. Interpreted by: Celina Vila Preliminary Report By: Omer Aldridge Electronically signed By Celina Vila Dictated Date: 11/19/2024 5:19:54 PM Prelim Date: 11/19/2024 5:24:25 PM Sign Date: 11/19/2024 5:39:51 PM Ordering Provider: FERNANDO DE LEON [facility] CBC,PLATELETSon 09-17-2024 Erythrocyte distribution width (RBC) [Ratio] 12.8 % 10.8 - 14.9 % [facility] Hematocrit (Bld) [Volume fraction] 33.7 % Low 34.9 - 44.3 % [facility] Hemoglobin (Bld) [Mass/Vol] 11.5 g/dL 11.4 - 15.2 g/dL [facility] Interpretation and review of laboratory results Abnormal [facility] MCH (RBC) [Entitic mass] 28.5 pg 25.9 - 33.[address] [facility] MCHC (RBC) [Mass/Vol] 34.1 g/dL 31.4 - 35.9 g/dL [facility] MCV (RBC) [Entitic vol] 83.6 fL 79.6 - 97.[address] [facility] Platelet mean volume (Bld) [Entitic vol] [facility] Comment on above: Not measured Platelets (Bld) [#/Vol] 86 10*3/uL Low 150 - 393 K/uL [facility] RBC (Bld) [#/Vol] 4.03 10*6/uL [facility] WBC (Bld) [#/Vol] 11.26 10*3/uL High 3.99 - 11.19 K/uL [facility] Hematocrit (Bld) [Volume fraction] 33.7 % Low 34.9-44.3 [facility] Comment on above: Performed By: #### H EMOGC #### [facility] (DEFAULT) [address] [address] Hemoglobin (Bld) [Mass/Vol] 11.5 g/dL Normal 11.4-15.2 [facility] Comment on above: Performed By: #### H EMOGC #### [facility] (DEFAULT) [address] [address] MCV (RBC) [Entitic vol] 83.6 fL Normal 79.6-97.7 [facility] Comment on above: Performed By: #### H EMO #### [facility] (DEFAULT) [address] [address] Mean Cell Hgb 28.5 pg Normal 25.9-33.9 [facility] Comment on above: Performed By: #### H EMOGC #### [facility] (DEFAULT) [address] [address] Mean Cell Hgb Conc 34.1 g/dL Normal 31.4-35.9 [facility] Comment on above: Performed By: #### H EMOGC #### [facility] (DEFAULT) [address] [address] Mean Platelet Volume Normal [facility] Comment on above: Result Comment: Not measured Performed By: #### H EMOGC #### [facility] (DEFAULT) [address] [address] Platelets (Bld) [#/Vol] 86 10*3/uL Low 150-393 [facility] Comment on above: Performed By: #### H EMOGC #### [facility] (DEFAULT) [address] [address] RBC (Bld) [#/Vol] 4.03 10*6/uL Normal 3.91-5.04 [facility] Comment on above: Performed By: #### H [facility] #### [facility] (DEFAULT) [address] [place] [address] RBC Distribution 12.8 % Normal 10.8-14.9 [facility] Comment on above: Performed By: #### H [facility] #### [facility] (DEFAULT) [address] [place] [address] WBC (Bld) [#/Vol] 11.26 10*3/uL High 3.99-11.19 [facility] Comment on above: Performed By: #### H [facility] #### [facility] (DEFAULT) [address] [place] [address] CHEM 7 (LYTES,BUN,CREA,GLUC) on 09-17-2024 Anion gap [Moles/Vol] 15 mmol/L 7 - 17 mmol/L [facility] Chloride [Moles/Vol] 100 mmol/L 98 - 10 8 mmol/L [facility] CO2 [Moles/Vol] 25 mmol/L 21 - 31 mmol/L [facility] Creatinine [Mass/Vol] 0.8 mg/dL 0.50 - 1.20 mg/dL [facility] eGFR, CKD-EPI, Female 86 - PINF [facility] Comment on above: Reported eGFR is bas ed on the CKD-EPI 2020 equation using creatinine, age, and sex. Glucose [Mass/Vol] 162 mg/dL 70 - 179 mg/dL [facility] Osmolality Calc [Osmolality] 289 [facility] Potassium [Moles/Vol] 3.8 mmol/L 3.5 - 5.0 mmol/L [facility] Sodium [Moles/Vol] 136 mmol/L 135 - 145 mmol/L [facility] Urea nitrogen [Mass/Vol] 12 mg/dL 7 - 25 mg/dL [facility] Urea nitrogen/Creatinine [Mass ratio] 15 mg/mg [facility] Anion gap [Moles/Vol] 15 mmol/L Normal 7-17 [facility] Comment on above: Performed By: #### L [id number] #### [facility] (DEFAULT) [address] [place] [address] Chloride [Moles/Vol] 100 mmol/L Normal 98-108 [facility] Comment on above: Performed By: #### L [id number] #### [facility] (DEFAULT) [address] [place] [address] CO2 [Moles/Vol] 25 mmol/L Normal 21-31 [facility] Comment on above: Performed By: #### L [id number] #### [facility] (DEFAULT) [address] [place] [address] Creatinine [Mass/Vol] 0.80 mg/dL Normal 0.50-1.20 [facility] Comment on above: Performed By: #### L [id number] #### [facility] (DEFAULT) [address] [place] [address] GFR/1.73 sq M.predicted among non-blacks MDRD (S/P/Bld) [Vol rate/Area] 86 mL/min/{1.73_m2} Normal >=60 [facility] Comment on above: Result Comment: Repo rted eGFR is based on the CKD-EPI 2020 equation using creatinine, age, and sex. Performed By: #### L [id number] #### [facility] (DEFAULT) [address] [place] [address] Glucose [Mass/Vol] 162 mg/dL Normal Nonfastin g : 70-179 mg/dL; Fastin-99 [facility] Comment on above: Performed By: #### L [id number] #### [facility] (DEFAULT) [address] [place] [address] Osmolality [Osmolality] 289 mosm/kg Normal 278-305 [facility] Comment on above: Performed By: #### L [id number] #### [facility] (DEFAULT) [address] [place] [address] Potassium [Moles/Vol] 3.8 mmol/L Normal 3.5-5.0 [facility] Comment on above: Performed By: #### L [id number] #### [facility] (DEFAULT) [address] [place] [address] Sodium [Moles/Vol] 136 mmol/L Normal 135-145 [facility] Comment on above: Performed By: #### L [id number] #### [facility] (DEFAULT) [address] [place] [address] Urea nitrogen [Mass/Vol] 12 mg/dL Normal 7-25 [facility] Comment on above: Performed By: #### L [id number] #### [facility] (DEFAULT) [address] [place] [address] Urea nitrogen/Creatinine [Mass ratio] 15 mg/mg Normal [facility] Comment on above: Performed By: #### L [id number] #### [facility] (DEFAULT) [address] [place] [address] GLUCOSE POCon 09-17-2024 Glucose [Mass/Vol] 136 mg/dL 70 - 179 mg/dL [facility] POC Sample Type CAPBL [facility] Test performed at ad dress of the patient encounter. [facility] Glucose [Mass/Vol] 121 mg/dL 70 - 179 mg/dL [facility] POC Sample Type CAPBL [facility] Test performed at ad dress of the patient encounter. [facility] PLATELET COUNTon 09-17-2024 Interpretation and review of laboratory results Abnormal [facility] Platelet mean volume (Bld) [Entitic vol] [facility] Comment on above: Not measured Platelets (Bld) [#/Vol] 132 10*3/uL Low 150 - 393 K/uL [facility] Mean Platelet Volume Normal [facility] Comment on above: Result Comment: Not measured Performed By: #### L [id number] #### [facility] (DEFAULT) [address] [place] [address] Platelets (Bld) [#/Vol] 132 10*3/uL Low 150-393 [facility] Comment on above: Performed By: #### L [id number] #### [facility] (DEFAULT) [address] [place] [address] PREPARE TO TRANSFUSE PLATELE Ton 09-17-2024 ABO/RH(D) TYPE Positive [facility] BLOOD COMPONENT TYPE Irradiated Leukored uced Platelet Apheresis [facility] EXPIRATION DATE [facility] Product ABO/RH(D) Positive [facility] Product ABO/RH(D) NUMBER 5100 [facility] PRODUCT CODE [id number] [facility] UNIT NUMBER [id number] [facility] UNIT STATUS transfused [facility] TRANSFUSE PLATELETSon 2024 [facility] CBC,PLATELETSon 09-16-2024 Erythrocyte distribution width (RBC) [Ratio] 12.8 % 10.8 - 14.9 % [facility] Hematocrit (Bld) [Volume fraction] 31.3 % Low 34.9 - 44.3 % [facility] Hemoglobin (Bld) [Mass/Vol] 10.9 g/dL Low 11.4 - 15.2 g/dL [facility] Interpretation and review of laboratory results Abnormal [facility] MCH (RBC) [Entitic mass] 28.8 pg 25.9 - 33.[address] [facility] MCHC (RBC) [Mass/Vol] 34.8 g/dL 31.4 - 35.9 g/dL [facility] MCV (RBC) [Entitic vol] 82.8 fL 79.6 - 97.[address] [facility] Platelet mean volume (Bld) [Entitic vol] [facility] Comment on above: Not measured Platelets (Bld) [#/Vol] 97 10*3/uL Low 150 - 393 K/uL [facility] RBC (Bld) [#/Vol] 3.78 10*6/uL Low [facility] WBC (Bld) [#/Vol] 12.41 10*3/uL High 3.99 - 11.19 K/uL [facility] Hematocrit (Bld) [Volume fraction] 31.3 % Low 34.9-44.3 [facility] Comment on above: Performed By: #### L [id number] #### [facility] (DEFAULT) [address] [address] Hemoglobin (Bld) [Mass/Vol] 10.9 g/dL Low 11.4-15.2 [facility] Comment on above: Performed By: #### L [id number] #### [facility] (DEFAULT) [address] [address] MCV (RBC) [Entitic vol] 82.8 fL Normal 79.6-97.7 [facility] Comment on above: Performed By: #### L [id number] #### [facility] (DEFAULT) [address] [address] Mean Cell Hgb 28.8 pg Normal 25.9-33.9 [facility] Comment on above: Performed By: #### L [id number] #### [facility] (DEFAULT) [address] [address] Mean Cell Hgb Conc 34.8 g/dL Normal 31.4-35.9 [facility] Comment on above: Performed By: #### L [id number] #### [facility] (DEFAULT) [address] [address] Mean Platelet Volume Normal [facility] Comment on above: Result Comment: Not measured Performed By: #### L [id number] #### [facility] (DEFAULT) [address] [address] Platelets (Bld) [#/Vol] 97 10*3/uL Low 150-393 [facility] Comment on above: Performed By: #### L [id number] #### [facility] (DEFAULT) [address] [place] [address] RBC (Bld) [#/Vol] 3.78 10*6/uL Low 3.91-5.04 [facility] Comment on above: Performed By: #### L [id number] #### [facility] (DEFAULT) [address] [place] [address] RBC Distribution 12.8 % Normal 10.8-14.9 [facility] Comment on above: Performed By: #### L [id number] #### [facility] (DEFAULT) [address] [place] [address] WBC (Bld) [#/Vol] 12.41 10*3/uL High 3.99-11.19 [facility] Comment on above: Performed By: #### L [id number] #### [facility] (DEFAULT) [address] [place] [address] CHEM 7 (LYTES,BUN,CREA,GLUC) on 09-16-2024 Anion gap [Moles/Vol] 14 mmol/L 7 - 17 mmol/L [facility] Chloride [Moles/Vol] 100 mmol/L 98 - 10 8 mmol/L [facility] CO2 [Moles/Vol] 27 mmol/L 21 - 31 mmol/L [facility] Creatinine [Mass/Vol] 0.89 mg/dL 0.50 - 1.20 mg/dL [facility] eGFR, CKD-EPI, Female 76 - PINF [facility] Comment on above: Reported eGFR is bas ed on the CKD-EPI 2020 equation using creatinine, age, and sex. Glucose [Mass/Vol] 193 mg/dL High 70 - 179 mg/dL [facility] Interpretation and review of laboratory results Abnormal [facility] Osmolality Calc [Osmolality] 294 [facility] Potassium [Moles/Vol] 4 mmol/L 3.5 - 5.0 mmol/L [facility] Sodium [Moles/Vol] 137 mmol/L 135 - 145 mmol/L [facility] Urea nitrogen [Mass/Vol] 14 mg/dL 7 - 25 mg/dL [facility] Urea nitrogen/Creatinine [Mass ratio] 16 mg/mg [facility] Anion gap [Moles/Vol] 14 mmol/L Normal 7-17 [facility] Comment on above: Performed By: #### C HM7 #### [facility] (DEFAULT) [address] [place] [address] Chloride [Moles/Vol] 100 mmol/L Normal 98-108 [facility] Comment on above: Performed By: #### C HM7 #### [facility] (DEFAULT) [address] [place] [address] CO2 [Moles/Vol] 27 mmol/L Normal 21-31 [facility] Comment on above: Performed By: #### C HM7 #### [facility] (DEFAULT) [address] [place] [address] Creatinine [Mass/Vol] 0.89 mg/dL Normal 0.50-1.20 [facility] Comment on above: Performed By: #### C HM7 #### [facility] (DEFAULT) [address] [place] [address] GFR/1.73 sq M.predicted among non-blacks MDRD (S/P/Bld) [Vol rate/Area] 76 mL/min/{1.73_m2} Normal >=60 [facility] Comment on above: Result Comment: Repo rted eGFR is based on the CKD-EPI 2020 equation using creatinine, age, and sex. Performed By: #### C HM7 #### [facility] (DEFAULT) [address] [place] [address] Glucose [Mass/Vol] 193 mg/dL High Nonfastin g : 70-179 mg/dL; Fastin-99 [facility] Comment on above: Performed By: #### C HM7 #### [facility] (DEFAULT) [address] [place] [address] Osmolality [Osmolality] 294 mosm/kg Normal 278-305 [facility] Comment on above: Performed By: #### C HM7 #### [facility] (DEFAULT) [address] [place] [address] Potassium [Moles/Vol] 4.0 mmol/L Normal 3.5-5.0 [facility] Comment on above: Performed By: #### C HM7 #### [facility] (DEFAULT) [address] [place] [address] Sodium [Moles/Vol] 137 mmol/L Normal 135-145 [facility] Comment on above: Performed By: #### C HM7 #### [facility] (DEFAULT) [address] [place] [address] Urea nitrogen [Mass/Vol] 14 mg/dL Normal 7-25 [facility] Comment on above: Performed By: #### C HM7 #### [facility] (DEFAULT) [address] [place] [address] Urea nitrogen/Creatinine [Mass ratio] 16 mg/mg Normal [facility] Comment on above: Performed By: #### C HM7 #### [facility] (DEFAULT) [address] [place] [address] GLUCOSE POCon 09-16-2024 Glucose [Mass/Vol] 170 mg/dL 70 - 179 mg/dL [facility] POC Sample Type CAPBL [facility] Test performed at ad dress of the patient encounter. [facility] Glucose [Mass/Vol] 166 mg/dL 70 - 179 mg/dL [facility] Glucose [Mass/Vol] 141 mg/dL 70 - 179 mg/dL [facility] Glucose [Mass/Vol] 210 mg/dL High 70 - 179 mg/dL [facility] Interpretation and review of laboratory results Abnormal [facility] POC Sample Type CAPBL [facility] Test performed at ad dress of the patient encounter. [facility] No Panel Informationon 09-16 POC Sample Type CAPBL [facility] Test performed at ad dress of the patient encounter. [facility] ABORH TYPE RECONFIRMATIONon 09-15-2024 ABO/RH(D) TYPE Positive Normal [facility] Comment on above: Performed By: #### T YPEC #### [facility] (DEFAULT) [address] [place] [address] CBC AND ELECTRONIC DIFFon Basophils (Bld) [#/Vol] K/uL 0.00 - 0.15 K/uL [facility] Basophils/100 WBC (Bld) 0.4 % [facility] Differential cell count method Nom (Bld) Electronic Differential [facility] Eosinophils (Bld) [#/Vol] 0.08 10*3/uL 0.00 - 0.42 K/uL [facility] Eosinophils/100 WBC (Bld) 1.4 % [facility] Erythrocyte distribution width (RBC) [Ratio] 12.8 % 10.8 - 14.9 % [facility] Comment on above: This is an appended report. These results have been appended to a previously preliminary verified report. Hematocrit (Bld) [Volume fraction] 34.9 % 34.9 - 44.3 % [facility] Comment on above: This is an appended report. These results have been appended to a previously preliminary verified report. Hemoglobin (Bld) [Mass/Vol] 12.1 g/dL 11.4 - 15.2 g/dL [facility] Comment on above: This is an appended report. These results have been appended to a previously preliminary verified report. Immature granulocytes (Bld) [#/Vol] K/uL NINF - 0.08 K/uL [facility] Immature granulocytes/100 WBC (Bld) 0.4 % [facility] Interpretation and review of laboratory results Abnormal [facility] Lymphocytes (Bld) [#/Vol] 1.83 10*3/uL 1.16 - 3.51 K/uL [facility] Lymphocytes/100 WBC (Bld) 32.7 % [facility] MCH (RBC) [Entitic mass] 28.5 pg 25.9 - 33.[address] [facility] Comment on above: This is an appended report. These results have been appended to a previously preliminary verified report. MCHC (RBC) [Mass/Vol] 34.7 g/dL 31.4 - 35.9 g/dL [facility] Comment on above: This is an appended report. These results have been appended to a previously preliminary verified report. MCV (RBC) [Entitic vol] 82.1 fL 79.6 - 97.[address] [facility] Comment on above: This is an appended report. These results have been appended to a previously preliminary verified report. Monocytes (Bld) [#/Vol] 0.43 10*3/uL 0.22 - 0.87 K/uL [facility] Monocytes/100 WBC (Bld) 7.7 % [facility] Neutrophils (Bld) [#/Vol] 3.21 10*3/uL 1.64 - 7.28 K/uL [facility] Nucleated RBC/100 WBC (Bld) [Ratio] 0 % [facility] Platelet mean volume (Bld) [Entitic vol] [facility] Comment on above: Not measured Platelets (Bld) [#/Vol] 82 10*3/uL Low 150 - 393 K/uL [facility] Comment on above: This is an appended report. These results have been appended to a previously preliminary verified report. RBC (Bld) [#/Vol] 4.25 10*6/uL [facility] Comment on above: This is an appended report. These results have been appended to a previously preliminary verified report. Segmented neutrophils/100 WBC (Bld) 57.4 % [facility] WBC (Bld) [#/Vol] 5.59 10*3/uL 3.99 - 11.19 K/uL [facility] Comment on above: This is an appended report. These results have been appended to a previously preliminary verified report. [facility] Abs Baso Auto < Normal 0.00-0.15 [facility] Comment on above: Order Comment: Pleas e repeat plt count DAY OF SURGERY due to abnormal lab value Performed By: #### L [id number] #### [facility] (DEFAULT) [address] [place] [address] Basophils/100 WBC (Bld) 0.4 % Normal [facility] Comment on above: Order Comment: Pleas e repeat plt count DAY OF SURGERY due to abnormal lab value Performed By: #### L [id number] #### [facility] [facility] (DEFAULT) [address] [address] DIFF STATUS Electronic Differential Normal [facility] Comment on above: Order Comment: Pleas e repeat plt count DAY OF SURGERY due to abnormal lab value Performed By: #### L [id number] #### [facility] (DEFAULT) [address] [place] [address] Eosinophils (Bld) [#/Vol] 0.08 10*3/uL Normal 0.00-0.42 [facility] Comment on above: Order Comment: Pleas e repeat plt count DAY OF SURGERY due to abnormal lab value Performed By: #### L [id number] #### [facility] (DEFAULT) [address] [place] [address] Eosinophils/100 WBC (Bld) 1.4 % Normal [facility] Comment on above: Order Comment: Pleas e repeat plt count DAY OF SURGERY due to abnormal lab value Performed By: #### L [id number] #### [facility] (DEFAULT) [address] [place] [address] Hematocrit (Bld) [Volume fraction] 34.9 % Normal 34.9-44.3 [facility] Comment on above: Order Comment: Pleas e repeat plt count DAY OF SURGERY due to abnormal lab value Result Comment: This is an appended report. These results have been appended to a previously preliminary verified report. Performed By: #### L [id number] #### [facility] (DEFAULT) [address] [address] Hemoglobin (Bld) [Mass/Vol] 12.1 g/dL Normal 11.4-15.2 [facility] Comment on above: Order Comment: Pleas e repeat plt count DAY OF SURGERY due to abnormal lab value Result Comment: This is an appended report. These results have been appended to a previously preliminary verified report. Performed By: #### L [id number] #### [facility] (DEFAULT) [address] [address] Immature Grans % 0.4 % Normal [facility] Comment on above: Order Comment: Pleas e repeat plt count DAY OF SURGERY due to abnormal lab value Performed By: #### L [id number] #### [facility] (DEFAULT) [address] [address] Immature Grans Absolute < Normal <=0.08 [facility] Comment on above: Order Comment: Pleas e repeat plt count DAY OF SURGERY due to abnormal lab value Performed By: #### L [id number] #### [facility] (DEFAULT) [address] [address] Lymphocytes (Bld) [#/Vol] 1.83 10*3/uL Normal 1.16-3.51 [facility] Comment on above: Order Comment: Pleas e repeat plt count DAY OF SURGERY due to abnormal lab value Performed By: #### L [id number] #### [facility] (DEFAULT) [address] [address] Lymphocytes/100 WBC (Bld) 32.7 % Normal [facility] Comment on above: Order Comment: Pleas e repeat plt count DAY OF SURGERY due to abnormal lab value Performed By: #### L [id number] #### [facility] (DEFAULT) [address] [address] MCV (RBC) [Entitic vol] 82.1 fL Normal 79.6-97.7 [facility] Comment on above: Order Comment: Pleas e repeat plt count DAY OF SURGERY due to abnormal lab value Result Comment: This is an appended report. These results have been appended to a previously preliminary verified report. Performed By: #### L [id number] #### [facility] (DEFAULT) [address] [address] Mean Cell Hgb 28.5 pg Normal 25.9-33.9 [facility] Comment on above: Order Comment: Pleas e repeat plt count DAY OF SURGERY due to abnormal lab value Result Comment: This is an appended report. These results have been appended to a previously preliminary verified report. Performed By: #### L [id number] #### [facility] (DEFAULT) [address] [address] Mean Cell Hgb Conc 34.7 g/dL Normal 31.4-35.9 [facility] Comment on above: Order Comment: Pleas e repeat plt count DAY OF SURGERY due to abnormal lab value Result Comment: This is an appended report. These results have been appended to a previously preliminary verified report. Performed By: #### L [id number] #### [facility] (DEFAULT) [address] [place] [address] Mean Platelet Volume Normal [facility] Comment on above: Order Comment: Pleas e repeat plt count DAY OF SURGERY due to abnormal lab value Result Comment: Not measured Performed By: #### L [id number] #### [facility] (DEFAULT) [address] [address] Monocytes (Bld) [#/Vol] 0.43 10*3/uL Normal 0.22-0.87 [facility] Comment on above: Order Comment: Pleas e repeat plt count DAY OF SURGERY due to abnormal lab value Performed By: #### L [id number] #### [facility] (DEFAULT) [address] [address] Monocytes/100 WBC (Bld) 7.7 % Normal [facility] Comment on above: Order Comment: Pleas e repeat plt count DAY OF SURGERY due to abnormal lab value Performed By: #### L [id number] #### [facility] (DEFAULT) [address] [address] Nucleated RBC 0.0 /100 WBC Normal <=0.2 [facility] Comment on above: Order Comment: Pleas e repeat plt count DAY OF SURGERY due to abnormal lab value Performed By: #### L [id number] #### [facility] (DEFAULT) [address] [place] [address] Platelets (Bld) [#/Vol] 82 10*3/uL Low 150-393 [facility] Comment on above: Order Comment: Pleas e repeat plt count DAY OF SURGERY due to abnormal lab value Result Comment: This is an appended report. These results have been appended to a previously preliminary verified report. Performed By: #### L [id number] #### [facility] (DEFAULT) [address] [address] RBC (Bld) [#/Vol] 4.25 10*6/uL Normal 3.91-5.04 [facility] Comment on above: Order Comment: Pleas e repeat plt count DAY OF SURGERY due to abnormal lab value Result Comment: This is an appended report. These results have been appended to a previously preliminary verified report. Performed By: #### L [id number] #### [facility] (DEFAULT) [address] [address] RBC Distribution 12.8 % Normal 10.8-14.9 [facility] Comment on above: Order Comment: Pleas e repeat plt count DAY OF SURGERY due to abnormal lab value Result Comment: This is an appended report. These results have been appended to a previously preliminary verified report. Performed By: #### L [id number] #### [facility] (DEFAULT) [address] [address] Segs + Bands Auto 57.4 % Normal [facility] Comment on above: Order Comment: Pleas e repeat plt count DAY OF SURGERY due to abnormal lab value Performed By: #### L [id number] #### [facility] (DEFAULT) [address] [address] Segs + Bands,Absolute Auto 3.21 K/uL Normal 1.64-7.28 [facility] Comment on above: Order Comment: Pleas e repeat plt count DAY OF SURGERY due to abnormal lab value Performed By: #### L [id number] #### [facility] (DEFAULT) [address] [place] [address] WBC (Bld) [#/Vol] 5.59 10*3/uL Normal 3.99-11.19 [facility] Comment on above: Order Comment: Pleas e repeat plt count DAY OF SURGERY due to abnormal lab value Result Comment: This is an appended report. These results have been appended to a previously preliminary verified report. Performed By: #### L [id number] #### [facility] (DEFAULT) [address] [place] [address] CBC,PLATELETSon 09-15-2024 Erythrocyte distribution width (RBC) [Ratio] 12.7 % 10.8 - 14.9 % [facility] Hematocrit (Bld) [Volume fraction] 32 % Low 34.9 - 44.3 % [facility] Hemoglobin (Bld) [Mass/Vol] 11.2 g/dL Low 11.4 - 15.2 g/dL [facility] Interpretation and review of laboratory results Abnormal [facility] MCH (RBC) [Entitic mass] 28.4 pg 25.9 - 33.[address] [facility] MCHC (RBC) [Mass/Vol] 35 g/dL 31.4 - 35.9 g/dL [facility] MCV (RBC) [Entitic vol] 81.2 fL 79.6 - 97.[address] [facility] Platelet mean volume (Bld) [Entitic vol] 10.9 fL 8.5 - 12.[address] [facility] Platelets (Bld) [#/Vol] 105 10*3/uL Low 150 - 393 K/uL [facility] RBC (Bld) [#/Vol] 3.94 10*6/uL [facility] WBC (Bld) [#/Vol] 4.89 10*3/uL 3.99 - 11.19 K/uL [facility] Hematocrit (Bld) [Volume fraction] 32.0 % Low 34.9-44.3 [facility] Comment on above: Order Comment: Pleas e repeat plt count DAY OF SURGERY due to abnormal lab value Performed By: #### L [id number] #### [facility] (DEFAULT) [address] [place] [address] Hemoglobin (Bld) [Mass/Vol] 11.2 g/dL Low 11.4-15.2 [facility] Comment on above: Order Comment: Pleas e repeat plt count DAY OF SURGERY due to abnormal lab value Performed By: #### L [id number] #### [facility] (DEFAULT) [address] [place] [address] MCV (RBC) [Entitic vol] 81.2 fL Normal 79.6-97.7 [facility] Comment on above: Order Comment: Pleas e repeat plt count DAY OF SURGERY due to abnormal lab value Performed By: #### L [id number] #### [facility] (DEFAULT) [address] [place] [address] Mean Cell Hgb 28.4 pg Normal 25.9-33.9 [facility] Comment on above: Order Comment: Pleas e repeat plt count DAY OF SURGERY due to abnormal lab value Performed By: #### L [id number] #### [facility] (DEFAULT) [address] [address] Mean Cell Hgb Conc 35.0 g/dL Normal 31.4-35.9 [facility] Comment on above: Order Comment: Pleas e repeat plt count DAY OF SURGERY due to abnormal lab value Performed By: #### L [id number] #### [facility] (DEFAULT) [address] [address] Platelet mean volume (Bld) [Entitic vol] 10.9 fL Normal 8.5-12.2 [facility] Comment on above: Order Comment: Pleas e repeat plt count DAY OF SURGERY due to abnormal lab value Performed By: #### L [id number] #### [facility] (DEFAULT) [address] [place] [address] Platelets (Bld) [#/Vol] 105 10*3/uL Low 150-393 [facility] Comment on above: Order Comment: Pleas e repeat plt count DAY OF SURGERY due to abnormal lab value Performed By: #### L [id number] #### [facility] (DEFAULT) [address] [place] [address] RBC (Bld) [#/Vol] 3.94 10*6/uL Normal 3.91-5.04 [facility] Comment on above: Order Comment: Pleas e repeat plt count DAY OF SURGERY due to abnormal lab value Performed By: #### L [id number] #### [facility] (DEFAULT) [address] [place] [address] RBC Distribution 12.7 % Normal 10.8-14.9 [facility] Comment on above: Order Comment: Pleas e repeat plt count DAY OF SURGERY due to abnormal lab value Performed By: #### L [id number] #### [facility] (DEFAULT) [address] [place] [address] WBC (Bld) [#/Vol] 4.89 10*3/uL Normal 3.99-11.19 [facility] Comment on above: Order Comment: Pleas e repeat plt count DAY OF SURGERY due to abnormal lab value Performed By: #### L [id number] #### [facility] (DEFAULT) [address] [place] [address] CHEM 7 (LYTES,BUN,CREA,GLUC) on 09-15-2024 Anion gap [Moles/Vol] 19 mmol/L High 7 - 17 mmol/L [facility] Chloride [Moles/Vol] 100 mmol/L 98 - 10 8 mmol/L [facility] CO2 [Moles/Vol] 24 mmol/L 21 - 31 mmol/L [facility] Creatinine [Mass/Vol] 0.79 mg/dL 0.50 - 1.20 mg/dL [facility] eGFR, CKD-EPI, Female 87 - PINF [facility] Comment on above: Reported eGFR is bas ed on the CKD-EPI 2020 equation using creatinine, age, and sex. Glucose [Mass/Vol] 181 mg/dL High 70 - 179 mg/dL [facility] Interpretation and review of laboratory results Abnormal [facility] Osmolality Calc [Osmolality] 294 [facility] Potassium [Moles/Vol] 3.6 mmol/L 3.5 - 5.0 mmol/L [facility] Sodium [Moles/Vol] 139 mmol/L 135 - 145 mmol/L [facility] Urea nitrogen [Mass/Vol] 8 mg/dL 7 - 25 mg/dL [facility] Urea nitrogen/Creatinine [Mass ratio] 10 mg/mg [facility] Anion gap [Moles/Vol] 19 mmol/L High 7-17 [facility] Comment on above: Order Comment: Pleas e repeat plt count DAY OF SURGERY due to abnormal lab value Performed By: #### L [id number] #### [facility] (DEFAULT) [address] [place] [address] Chloride [Moles/Vol] 100 mmol/L Normal 98-108 [facility] Comment on above: Order Comment: Pleas e repeat plt count DAY OF SURGERY due to abnormal lab value Performed By: #### L [id number] #### [facility] (DEFAULT) [address] [place] [address] CO2 [Moles/Vol] 24 mmol/L Normal 21-31 [facility] Comment on above: Order Comment: Pleas e repeat plt count DAY OF SURGERY due to abnormal lab value Performed By: #### L [id number] #### [facility] (DEFAULT) [address] [place] [address] Creatinine [Mass/Vol] 0.79 mg/dL Normal 0.50-1.20 [facility] Comment on above: Order Comment: Pleas e repeat plt count DAY OF SURGERY due to abnormal lab value Performed By: #### L [id number] #### [facility] (DEFAULT) [address] [place] [address] GFR/1.73 sq M.predicted among non-blacks MDRD (S/P/Bld) [Vol rate/Area] 87 mL/min/{1.73_m2} Normal >=60 [facility] Comment on above: Order Comment: Pleas e repeat plt count DAY OF SURGERY due to abnormal lab value Result Comment: Repo rted eGFR is based on the CKD-EPI 2020 equation using creatinine, age, and sex. Performed By: #### L [id number] #### [facility] (DEFAULT) [address] [place] [address] Glucose [Mass/Vol] 181 mg/dL High Nonfastin g : 70-179 mg/dL; Fastin-99 [facility] Comment on above: Order Comment: Pleas e repeat plt count DAY OF SURGERY due to abnormal lab value Performed By: #### L [id number] #### [facility] (DEFAULT) [address] [place] [address] Osmolality [Osmolality] 294 mosm/kg Normal 278-305 [facility] Comment on above: Order Comment: Pleas e repeat plt count DAY OF SURGERY due to abnormal lab value Performed By: #### L [id number] #### [facility] (DEFAULT) [address] [place] [address] Potassium [Moles/Vol] 3.6 mmol/L Normal 3.5-5.0 [facility] Comment on above: Order Comment: Pleas e repeat plt count DAY OF SURGERY due to abnormal lab value Performed By: #### L [id number] #### [facility] (DEFAULT) [address] [place] [address] Sodium [Moles/Vol] 139 mmol/L Normal 135-145 [facility] Comment on above: Order Comment: Pleas e repeat plt count DAY OF SURGERY due to abnormal lab value Performed By: #### L [id number] #### [facility] (DEFAULT) [address] [place] [address] Urea nitrogen [Mass/Vol] 8 mg/dL Normal 7-25 [facility] Comment on above: Order Comment: Pleas e repeat plt count DAY OF SURGERY due to abnormal lab value Performed By: #### L [id number] #### [facility] (DEFAULT) [address] [place] [address] Urea nitrogen/Creatinine [Mass ratio] 10 mg/mg Normal [facility] Comment on above: Order Comment: Minnie okeefe repeat plt count DAY OF SURGERY due to abnormal lab value Performed By: #### L [id number] #### [facility] (DEFAULT) [address] [place] [address] CT HEAD WITHOUT CONTRASTon 0 09-15-2024 CT HEAD WITHOUT CONTRAST EXAM: CT HEAD WITHOUT CONTRAST, 09/15/2024 12:55 PM COMPARISON: MRI BRAIN (OUTSIDE IMAGE) January 27, 2024 CLINICAL INDICATIONS: 59-year-old female. post-microvascular decompression for trigeminal neuralgia RELEVANT CLINICAL HISTORY: TECHNIQUE: A series of transaxial computerized tomographic images are obtained from base of skull to vertex without intravenous contrast. Axial whole-head and thin section posterior fossa slices are provided. Reformats: Sagittal and coronal. FINDINGS: Postsurgical changes from left retrosigmoid craniotomy with associated fixation plates. The craniotomy includes the posterior left mastoid air cells. Small amount of extra-axial fluid, hyperdense blood, and air deep to the craniotomy. There is moderate scattered pneumocephalus elsewhere in the extra-axial spaces, largest in the interhemispheric and sylvian fissures. No evidence of severe mass effect or brain herniation. Drummond-white matter differentiation is preserved. No acute large territory infarction is seen. No significant ventriculomegaly. Visualized orbits appear normal. Visualized paranasal sinuses show scattered mucosal thickening. Mild secretions in the right sphenoid sinus. Moderate opacification of the left mastoid air cells. Sella is normal. IMPRESSION: Postoperative findings, with a small amount of extra-axial blood deep to the craniotomy and moderate pneumocephalus. I personally viewed and interpreted these images and I have reviewed and approved this report. Normal [facility] CT Head WO contraston 2024 IMPRESSION: Postoperative findings, with a small amount of extra-axial blood deep to the craniotomy and moderate pneumocephalus. I personally viewed and interpreted these images and I have reviewed and approved this report. OLOGY EXAM: CT HEAD WITHOU T CONTRAST, 09/15/2024 12:55 PM COMPARISON: MRI BRAIN (OUTSIDE IMAGE) January 27, 2024 CLINICAL INDICATIONS: 59-year-old female. post-microvascular decompression for trigeminal neuralgia RELEVANT CLINICAL HISTORY: TECHNIQUE: A series of transaxial computerized tomographic images are obtained from base of skull to vertex without intravenous contrast. Axial whole-head and thin section posterior fossa slices are provided. Reformats: Sagittal and coronal. FINDINGS: Postsurgical changes from left retrosigmoid craniotomy with associated fixation plates. The craniotomy includes the posterior left mastoid air cells. Small amount of extra-axial fluid, hyperdense blood, and air deep to the craniotomy. There is moderate scattered pneumocephalus elsewhere in the extra-axial spaces, largest in the interhemispheric and sylvian fissures. No evidence of severe mass effect or brain herniation. Drummond-white matter differentiation is preserved. No acute large territory infarction is seen. No significant ventriculomegaly. Visualized orbits appear normal. Visualized paranasal sinuses show scattered mucosal thickening. Mild secretions in the right sphenoid sinus. Moderate opacification of the left mastoid air cells. Sella is normal. RADIOLOGY Maile Ambrosio MD, PhD - 09/15/2024 EXAM: CT HEAD WITHOUT CONTRAST, 09/15/2024 12:55 PM COMPARISON: MRI BRAIN (OUTSIDE IMAGE) January 27, 2024 CLINICAL INDICATIONS: 59-year-old female. post-microvascular decompression for trigeminal neuralgia RELEVANT CLINICAL HISTORY: TECHNIQUE: A series of transaxial computerized tomographic images are obtained from base of skull to vertex without intravenous contrast. Axial whole-head and thin section posterior fossa slices are provided. Reformats: Sagittal and coronal. FINDINGS: Postsurgical changes from left retrosigmoid craniotomy with associated fixation plates. The craniotomy includes the posterior left mastoid air cells. Small amount of extra-axial fluid, hyperdense blood, and air deep to the craniotomy. There is moderate scattered pneumocephalus elsewhere in the extra-axial spaces, largest in the interhemispheric and sylvian fissures. No evidence of severe mass effect or brain herniation. Drummond-white matter differentiation is preserved. No acute large territory infarction is seen. No significant ventriculomegaly. Visualized orbits appear normal. Visualized paranasal sinuses show scattered mucosal thickening. Mild secretions in the right sphenoid sinus. Moderate opacification of the left mastoid air cells. Sella is normal. IMPRESSION IMPRESSION: Postoperative findings, with a small amount of extra-axial blood deep to the craniotomy and moderate pneumocephalus. I personally viewed and interpreted these images and I have reviewed and approved this report. [facility] Radiology Study observation (narrative) [facility] CT Head WO contrastOrdered B y: Maile Meng on 09-15-2024 [facility] Work Phone: GLUCOSE POCon 09-15-2024 Glucose [Mass/Vol] 185 mg/dL High 70 - 179 mg/dL [facility] Interpretation and review of laboratory results Abnormal [facility] POC Sample Type CAPBL [facility] Test performed at ad dress of the patient encounter. [facility] Glucose [Mass/Vol] 242 mg/dL High 70 - 179 mg/dL [facility] Interpretation and review of laboratory results Abnormal [facility] POC Sample Type CAPBL [facility] Test performed at ad dress of the patient encounter. [facility] Glucose [Mass/Vol] 188 mg/dL High 70 - 179 mg/dL [facility] Interpretation and review of laboratory results Abnormal [facility] POC Sample Type ARTER [facility] Test performed at ad dress of the patient encounter. [facility] Glucose [Mass/Vol] 111 mg/dL 70 - 179 mg/dL [facility] POC Sample Type CAPBL [facility] Test performed at ad dress of the patient encounter. [facility] No Panel Informationon 09-15 [facility] ABO/RH(D) TYPE Positive [facility] POC ARTERIAL BLOOD GASon Base excess Calc (Bld) [Moles/Vol] 1.6 mmol/L -3.0 - 3.0 mmol/L [facility] Calcium.ionized (Bld) [Mass/Vol] 4.58 mg/dL Low 4.60 - 5.30 mg/dL [facility] CO2 (Bld) [Partial pressure] 39 mm[Hg] [facility] Glucose [Mass/Vol] 163 mg/dL 70 - 179 mg/dL [facility] HCO3 (Bld) [Moles/Vol] 26 mmol/L 22 - 28 mmol/L [facility] Hematocrit (Bld) [Volume fraction] 32 % Low 34 - 46 % [facility] Hemoglobin (Bld) [Mass/Vol] 10.6 g/dL Low 11.4 - 15.2 g/dL [facility] Interpretation and review of laboratory results Abnormal [facility] Lactate [Moles/Vol] 1.8 mmol/L High 0.5 - 1. 6 mmol/L [facility] Oxygen (Bld) [Partial pressure] 240 mm[Hg] High [facility] Oxygen saturation in Blood 99 % High 94 - 98 % [facility] pH (Bld) 7.43 [pH] 7.35 - 7.45 [facility] Potassium [Moles/Vol] 3.3 mmol/L Low 3.5 - 5.0 mmol/L [facility] Sodium [Moles/Vol] 135 mmol/L 135 - 145 mmol/L [facility] Specimen source Nom (Unsp spec) Arterial [facility] Test performed at ad dress of the patient encounter. [facility] PREPARE TO TRANSFUSE OR PLAT ELETSon 04-02-2025 ABO/RH(D) TYPE Positive [facility] BLOOD COMPONENT TYPE Irradiated Leukored uced Platelet Apheresis [facility] EXPIRATION DATE [facility] Product ABO/RH(D) Positive [facility] Product ABO/RH(D) NUMBER 6200 [facility] PRODUCT CODE [id number] [facility] UNIT NUMBER [id number] [facility] UNIT STATUS transfused [facility] PREPARE TO TRANSFUSE PLATELE Ton 09-15-2024 BLOOD COMPONENT TYPE Irradiated Leukored uced Platelet Apheresis [facility] EXPIRATION DATE [facility] Product ABO/RH(D) Positive [facility] Product ABO/RH(D) NUMBER 6200 [facility] PRODUCT CODE [id number] [facility] UNIT NUMBER [id number] [facility] UNIT STATUS transfused [facility] PT,INR,PTTon 09-15-2024 aPTT Coag (PPP) [Time] 30.[address] [facility] INR Coag (Bld) [Relative time] 1.2 {INR} High 0.9 - 1.1 [facility] Interpretation and review of laboratory results Abnormal [facility] PT Coag (PPP) [Time] 15.1 s High [facility] aPTT Coag (Bld) [Time] 30.2 s Normal 24.0-34.3 [facility] Comment on above: Order Comment: Colle ct now Performed By: #### C HM7 #### [facility] (DEFAULT) [address] [place] [address] INR Coag (PPP) [Relative time] 1.2 {INR} High 0.9-1.1 [facility] Comment on above: Order Comment: Colle ct now Performed By: #### C HM7 #### [facility] (DEFAULT) [address] [place] [address] 48953 PT Coag (PPP) [Time] 15.1 s High 11.9-14.2 [facility] Comment on above: Order Comment: Colle ct now Performed By: #### C HM7 #### [facility] (DEFAULT) [address] [place] [address] 95284 aPTT Coag (PPP) [Time] 29.[address] [facility] INR Coag (Bld) [Relative time] 1.2 {INR} High 0.9 - 1.1 [facility] Interpretation and review of laboratory results Abnormal [facility] PT Coag (PPP) [Time] 15 s High [facility] aPTT Coag (Bld) [Time] 29.5 s Normal 24.0-34.3 [facility] Comment on above: Performed By: #### P TPTT #### [facility] (DEFAULT) [address] [place] [address] 04384 INR Coag (PPP) [Relative time] 1.2 {INR} High 0.9-1.1 [facility] Comment on above: Performed By: #### P TPTT #### [facility] (DEFAULT) [address] [place] [address] 54207 PT Coag (PPP) [Time] 15.0 s High 11.9-14.2 [facility] Comment on above: Performed By: #### P TPTT #### [facility] (DEFAULT) [address] [place] [address]113 TRAN[address]USE [address] [facility] TRANSFUSE OR PLATELETSOrdere d By: Teresita Langston on 09-15-2024 [facility] Work Phone: CBC AND ELECTRONIC DIFFon Basophils (Bld) [#/Vol] K/uL 0.00 - 0.15 K/uL [facility] Basophils/100 WBC (Bld) 0.4 % [facility] Differential cell count method Nom (Bld) Electronic Differential [facility] Eosinophils (Bld) [#/Vol] 0.05 10*3/uL 0.00 - 0.42 K/uL [facility] Eosinophils/100 WBC (Bld) 1 % [facility] Erythrocyte distribution width (RBC) [Ratio] 13.2 % 10.8 - 14.9 % [facility] Comment on above: This is an appended report. These results have been appended to a previously preliminary verified report. Hematocrit (Bld) [Volume fraction] 34 % Low 34.9 - 44.3 % [facility] Comment on above: This is an appended report. These results have been appended to a previously preliminary verified report. Hemoglobin (Bld) [Mass/Vol] 11.6 g/dL 11.4 - 15.2 g/dL [facility] Comment on above: This is an appended report. These results have been appended to a previously preliminary verified report. Immature granulocytes (Bld) [#/Vol] K/uL NINF - 0.08 K/uL [facility] Immature granulocytes/100 WBC (Bld) 0.4 % [facility] Interpretation and review of laboratory results Abnormal [facility] Lymphocytes (Bld) [#/Vol] 1.31 10*3/uL 1.16 - 3.51 K/uL [facility] Lymphocytes/100 WBC (Bld) 25.4 % [facility] MCH (RBC) [Entitic mass] 29.2 pg 25.9 - 33.[address] [facility] Comment on above: This is an appended report. These results have been appended to a previously preliminary verified report. MCHC (RBC) [Mass/Vol] 34.1 g/dL 31.4 - 35.9 g/dL [facility] Comment on above: This is an appended report. These results have been appended to a previously preliminary verified report. MCV (RBC) [Entitic vol] 85.6 fL 79.6 - 97.[address] [facility] Comment on above: This is an appended report. These results have been appended to a previously preliminary verified report. Monocytes (Bld) [#/Vol] 0.4 10*3/uL 0.22 - 0.87 K/uL [facility] Monocytes/100 WBC (Bld) 7.8 % [facility] Neutrophils (Bld) [#/Vol] 3.35 10*3/uL 1.64 - 7.28 K/uL [facility] Nucleated RBC/100 WBC (Bld) [Ratio] 0 % NINF [facility] Platelet mean volume (Bld) [Entitic vol] [facility] Comment on above: Not measured Platelets (Bld) [#/Vol] 78 10*3/uL Low 150 - 393 K/uL [facility] Comment on above: Automated platelet c ount confirmed by manual slide review. This is an appended report. These results have been appended to a previously preliminary verified report. RBC (Bld) [#/Vol] 3.97 10*6/uL [facility] Comment on above: This is an appended report. These results have been appended to a previously preliminary verified report. Segmented neutrophils/100 WBC (Bld) 65 % [facility] WBC (Bld) [#/Vol] 5.15 10*3/uL 3.99 - 11.19 K/uL [facility] Comment on above: This is an appended report. These results have been appended to a previously preliminary verified report. [facility] Abs Baso Auto < Normal 0.00-0.15 [facility] Comment on above: Performed By: #### L [id number] #### [facility] (DEFAULT) [address] [place] [address] 8[address]68 Basophils/100 WBC (Bld) 0.4 % Normal [facility] Comment on above: Performed By: #### L [id number] #### [facility] (DEFAULT) [address] [place] [address] DIFF STATUS Electronic Differential Normal [facility] Comment on above: Performed By: #### L [id number] #### [facility] (DEFAULT) [address] [address] Eosinophils (Bld) [#/Vol] 0.05 10*3/uL Normal 0.00-0.42 [facility] Comment on above: Performed By: #### L [id number] #### [facility] (DEFAULT) [address] [address] Eosinophils/100 WBC (Bld) 1.0 % Normal [facility] Comment on above: Performed By: #### L [id number] #### [facility] (DEFAULT) [address] [address] Hematocrit (Bld) [Volume fraction] 34.0 % Low 34.9-44.3 [facility] Comment on above: Result Comment: This is an appended report. These results have been appended to a previously preliminary verified report. Performed By: #### L [id number] #### [facility] (DEFAULT) [address] [address] Hemoglobin (Bld) [Mass/Vol] 11.6 g/dL Normal 11.4-15.2 [facility] Comment on above: Result Comment: This is an appended report. These results have been appended to a previously preliminary verified report. Performed By: #### L [id number] #### [facility] (DEFAULT) [address] [address] Immature Grans % 0.4 % Normal [facility] Comment on above: Performed By: #### L [id number] #### [facility] (DEFAULT) [address] [address] Immature Grans Absolute < Normal <=0.08 [facility] Comment on above: Performed By: #### L [id number] #### [facility] (DEFAULT) [address] [address] Lymphocytes (Bld) [#/Vol] 1.31 10*3/uL Normal 1.16-3.51 [facility] Comment on above: Performed By: #### L [id number] #### [facility] (DEFAULT) [address] [address] Lymphocytes/100 WBC (Bld) 25.4 % Normal [facility] Comment on above: Performed By: #### L [id number] #### [facility] (DEFAULT) [address] [address] MCV (RBC) [Entitic vol] 85.6 fL Normal 79.6-97.7 [facility] Comment on above: Result Comment: This is an appended report. These results have been appended to a previously preliminary verified report. Performed By: #### L [id number] #### [facility] (DEFAULT) [address] [address] Mean Cell Hgb 29.2 pg Normal 25.9-33.9 [facility] Comment on above: Result Comment: This is an appended report. These results have been appended to a previously preliminary verified report. Performed By: #### L [id number] #### [facility] (DEFAULT) [address] [address] Mean Cell Hgb Conc 34.1 g/dL Normal 31.4-35.9 [facility] Comment on above: Result Comment: This is an appended report. These results have been appended to a previously preliminary verified report. Performed By: #### L [id number] #### [facility] (DEFAULT) [address] [address] Mean Platelet Volume Normal [facility] Comment on above: Result Comment: Not measured Performed By: #### L [id number] #### [facility] (DEFAULT) [address] [address] Monocytes (Bld) [#/Vol] 0.40 10*3/uL Normal 0.22-0.87 [facility] Comment on above: Performed By: #### L [id number] #### [facility] (DEFAULT) [address] [address] Monocytes/100 WBC (Bld) 7.8 % Normal [facility] Comment on above: Performed By: #### L [id number] #### [facility] (DEFAULT) [address] [address] Nucleated RBC 0.0 /100 WBC Normal <=0.2 [facility] Comment on above: Performed By: #### L [id number] #### [facility] (DEFAULT) [address] [address] Platelets (Bld) [#/Vol] 78 10*3/uL Low 150-393 [facility] Comment on above: Result Comment: Auto mated platelet count confirmed by manual slide review. This is an appended report. These results have been appended to a previously preliminary verified report. Performed By: #### L [id number] #### [facility] (DEFAULT) [address] [address] RBC (Bld) [#/Vol] 3.97 10*6/uL Normal 3.91-5.04 [facility] Comment on above: Result Comment: This is an appended report. These results have been appended to a previously preliminary verified report. Performed By: #### L [id number] #### [facility] (DEFAULT) [address] [address] RBC Distribution 13.2 % Normal 10.8-14.9 [facility] Comment on above: Result Comment: This is an appended report. These results have been appended to a previously preliminary verified report. Performed By: #### L [id number] #### [facility] (DEFAULT) [address] [address] Segs + Bands Auto 65.0 % Normal [facility] Comment on above: Performed By: #### L [id number] #### [facility] (DEFAULT) [address] [address] Segs + Bands,Absolute Auto 3.35 K/uL Normal 1.64-7.28 [facility] Comment on above: Performed By: #### L [id number] #### [facility] (DEFAULT) [address] [address] WBC (Bld) [#/Vol] 5.15 10*3/uL Normal 3.99-11.19 [facility] Comment on above: Result Comment: This is an appended report. These results have been appended to a previously preliminary verified report. Performed By: #### L [id number] #### [facility] (DEFAULT) [address] [place] [address] CHEM 6 (LYTES, BUN CREA)on 0 08-25-2024 Anion gap [Moles/Vol] 8 mmol/L 7 - 17 mmol/L [facility] Chloride [Moles/Vol] 106 mmol/L 98 - 10 8 mmol/L [facility] CO2 [Moles/Vol] 29 mmol/L 21 - 31 mmol/L [facility] Creatinine [Mass/Vol] 0.83 mg/dL 0.50 - 1.20 mg/dL [facility] eGFR, CKD-EPI, Female 82 - PINF [facility] Comment on above: Reported eGFR is bas ed on the CKD-EPI 2020 equation using creatinine, age, and sex. Potassium [Moles/Vol] 4.1 mmol/L 3.5 - 5.0 mmol/L [facility] Sodium [Moles/Vol] 139 mmol/L 135 - 145 mmol/L [facility] Urea nitrogen [Mass/Vol] 8 mg/dL 7 - 25 mg/dL [facility] Urea nitrogen/Creatinine [Mass ratio] 10 mg/mg [facility] Anion gap [Moles/Vol] 8 mmol/L Normal 7-17 [facility] Comment on above: Performed By: #### L [id number] #### [facility] (DEFAULT) [address] [place] [address]176 Chloride [Moles/Vol] 106 mmol/L Normal 98-108 [facility] Comment on above: Performed By: #### L [id number] #### [facility] (DEFAULT) [address] [place] [address]01 CO2 [Moles/Vol] 29 mmol/L Normal 21-31 [facility] Comment on above: Performed By: #### L [id number] #### [facility] (DEFAULT) [address] [address] Creatinine [Mass/Vol] 0.83 mg/dL Normal 0.50-1.20 [facility] Comment on above: Performed By: #### L [id number] #### [facility] (DEFAULT) [address] [place] [address] GFR/1.73 sq M.predicted among non-blacks MDRD (S/P/Bld) [Vol rate/Area] 82 mL/min/{1.73_m2} Normal >=60 [facility] Comment on above: Result Comment: Repo rted eGFR is based on the CKD-EPI 2020 equation using creatinine, age, and sex. Performed By: #### L [id number] #### [facility] (DEFAULT) [address] [address] Potassium [Moles/Vol] 4.1 mmol/L Normal 3.5-5.0 [facility] Comment on above: Performed By: #### L [id number] #### [facility] (DEFAULT) [address] [place] [address] Sodium [Moles/Vol] 139 mmol/L Normal 135-145 [facility] Comment on above: Performed By: #### L [id number] #### [facility] (DEFAULT) [address] [place] [address] Urea nitrogen [Mass/Vol] 8 mg/dL Normal 7-25 [facility] Comment on above: Performed By: #### L [id number] #### [facility] (DEFAULT) [address] [address] Urea nitrogen/Creatinine [Mass ratio] 10 mg/mg Normal [facility] Comment on above: Performed By: #### L [id number] #### [facility] (DEFAULT) [address] [place] [address] EXTRA LIGHT BLUE TOP DOUBLE SPINon 03-12-2025 Dummy LRR - Route to Double Spin Received [facility] EXTRA MICROon 08-25-2024 [facility] HEMOGLOBIN A1Con 08-25-2024 Average glucose Estimated from glycated hemoglobin (Bld) [Mass/Vol] 105 mg/dL [facility] HbA1c (Bld) [Mass fraction] 5.3 % 4.7 - 5.6 % [facility] Glucose [Mass/Vol] 105 mg/dL Normal [facility] Comment on above: Performed By: #### L [id number] #### [facility] (DEFAULT) [address] [place] [address] Hemoglobin A1C HPLC 5.3 % Normal 4.7-5.6 [facility] Comment on above: Performed By: #### L [id number] #### [facility] (DEFAULT) [address] [place] [address] PREPARE TO TRANSFUSE OR RED BLOOD CELLSon 08-25-2024 [facility] PROTIME-INRon 08-25-2024 INR Coag (Bld) [Relative time] 1.2 {INR} High 0.9 - 1.1 [facility] Interpretation and review of laboratory results Abnormal [facility] PT Coag (PPP) [Time] 15 s High [facility] INR Coag (PPP) [Relative time] 1.2 {INR} High 0.9-1.1 [facility] Comment on above: Performed By: #### L [id number] #### [facility] (DEFAULT) [address] [place] [address] PT Coag (PPP) [Time] 15.0 s High 11.9-14.2 [facility] Comment on above: Performed By: #### L [id number] #### [facility] (DEFAULT) [address] [place] [address] PTT W/MIXING STUDY PERF ONLY Ordered By: Kilo Campos on 08-25-2024 aPTT Coag (PPP) [Time] 29.[address] [facility] PTT Mixing Study With Normal Plasma Not Indicated [facility] PTT W/MIXING STUDY PERF ONLY on 08-25-2024 aPTT Coag (Bld) [Time] 29.3 s Normal 24.0-34.3 [facility] Comment on above: Performed By: #### L [id number] #### [facility] (DEFAULT) [address] [address] PTT Mixing Study With Normal Plasma Not Indicated Normal [facility] Comment on above: Performed By: #### L [id number] #### [facility] (DEFAULT) [address] [place] [address] SCREEN: MRSA/MSSAon 08-26-19 25 Methicillin Resistant S. Aureus By Pcr Negative Normal Negative [facility] Comment on above: Order Comment: This test was performed using a real time PCR assay. Results should be interpreted in conjunction with other clinical and laboratory findings. A positive result does not necessarily indicate the presence of viable organism. This test should not be used as a test of cure. For E-swab specimens, this test was developed and its performance characteristics determined by the [facility] Micro[facility] at [facility]. It has not been cleared or approved by the FDA.The laboratory is regulated under CLIA as qualified to perform high-complexity testing. This test is used for clinical purposes. It should not be regarded as investigational or for research. Performed By: #### S CRSB #### [facility] (DEFAULT) [address] [place] [address] Staphylococcus Aureus By Pcr Negative Normal Negative [facility] Comment on above: Order Comment: This test was performed using a real time PCR assay. Results should be interpreted in conjunction with other clinical and laboratory findings. A positive result does not necessarily indicate the presence of viable organism. This test should not be used as a test of cure. For E-swab specimens, this test was developed and its performance characteristics determined by the [facility] at [facility]. It has not been cleared or approved by the FDA.The laboratory is regulated under CLIA as qualified to perform high-complexity testing. This test is used for clinical purposes. It should not be regarded as investigational or for research. Performed By: #### S CRSB #### [facility] (DEFAULT) [address] [place] [address] TYPE AND SCREEN - PREADMISSI ONon 08-25-2024 ABO/RH(D) TYPE Positive [facility] Specimen [facility]/24/2024 23:[facility] ABO/RH(D) TYPE Positive Normal [facility] Comment on above: Performed By: #### X MPO #### [facility] (DEFAULT) [address] [place] [address] Specimen Expiration 09/18/2024 23:59 Normal [facility] Comment on above: Performed By: #### X MPO #### [facility] (DEFAULT) [address] [place] [address] URINALYSIS REFLEX TO CULTURE PERFORMABLEOrdered By: Janie De Paz on 08-25-2024 Appearance (U) Clear Clear [facility] Bacteria LM Ql (Urine sed) ABSENT ABSENT [facility] Color (U) Yellow Yellow [facility] Epithelial cells.squamous LM Ql (Urine sed) 3-5/hpf = 1+ 0-2/hpf, 3-5/hpf = 1+ [facility] Glucose Test strip (U) [Mass/Vol] 100 mg/dL Abnormal Negative [facility] Interpretation and review of laboratory results Abnormal [facility] Ketones (U) [Mass/Vol] Negative Negative [facility] Leukocyte esterase Test strip Ql (U) Trace Abnormal Negative [facility] Nitrite Ql (U) Negative Negative [facility] pH (U) 6.5 [pH] 5.0 - 7.0 [facility] Protein (U) [Mass/Vol] Negative Negative [facility] RBC (U) [#/Vol] [facility] LM.HPF (Urine sed) [#/Area] 0-2 [facility] Specific gravity (U) [Rel density] 1.015 1.001 - 1.035 [facility] Urobilinogen (U) [Mass/Vol] 0.2 E.U./dL 0.2 E.U/dL, 1.0 E.U/dL [facility] WBC LM.HPF (Urine sed) [#/Area] 0 - 5 [facility] URINALYSIS REFLEX TO CULTURE PERFORMABLEon 08-25-2024 Appearance (U) Clear Normal Clear [facility] Comment on above: Performed By: #### U [id number] #### [facility] (DEFAULT) [address] [place] [address] Bacteria ABSENT Normal ABSENT [facility] Comment on above: Performed By: #### U [id number] #### [facility] (DEFAULT) [address] [place] [address] Blood Urine Negative Normal Negative [facility] Comment on above: Performed By: #### U [id number] #### [facility] (DEFAULT) [address] [place] [address] Color (U) Yellow Normal Yellow [facility] Comment on above: Performed By: #### U [id number] #### [facility] (DEFAULT) [address] [place] [address] Glucose Ql (U) 100 mg/dL Abnormal Negative [facility] Comment on above: Performed By: #### U [id number] #### [facility] (DEFAULT) [address] [place] [address] Ketones Ql (U) Negative Normal Negative [facility] Comment on above: Performed By: #### U [id number] #### [facility] (DEFAULT) [address] [place] [address] Leukocyte esterase Test strip Ql (U) Trace Abnormal Negative [facility] Comment on above: Performed By: #### U [id number] #### [facility] (DEFAULT) [address] [place] [address] Nitrites Urine Negative Normal Negative [facility] Comment on above: Performed By: #### U [id number] #### [facility] (DEFAULT) [address] [place] [address] pH (U) 6.5 [pH] Normal 5.0-7.0 [facility] Comment on above: Performed By: #### U [id number] #### [facility] (DEFAULT) [address] [place] [address] Protein Urine Negative Normal Negative [facility] Comment on above: Performed By: #### U [id number] #### [facility] (DEFAULT) [address] [address] RBC Urine 0-2 Normal 0-2 [facility] Comment on above: Performed By: #### U [id number] #### [facility] (DEFAULT) [address] [address] Specific [place] Urine 1.015 Normal 1.001-1.03 5 [facility] Comment on above: Performed By: #### U [id number] #### [facility] (DEFAULT) [address] [address] Squamous/Epithelial Cells, Urine 3-5/hpf = 1+ Normal 0-2/hpf, 3-5/hpf = 1+ [facility] Comment on above: Performed By: #### U [id number] #### [facility] (DEFAULT) [address] [address] Urobilinogen Urine 0.2 E.U./dL Normal 0.2 E.U/dL, 1.0 E.U/dL [facility] Comment on above: Performed By: #### U [id number] #### [facility] (DEFAULT) [address] [address] WBC Urine 0 - 5 Normal 0 - 5 [facility] Comment on above: Performed By: #### U [id number] #### [facility] ([facility]) [address] [place] [address] XR CHEST PA AND LATERAL 2 EWSon 08-25-2024 XR CHEST PA AND LATERAL 2 VIEWS EXAM: XR CHEST PA AND LATERAL 2 VIEWS, 08/25/2024 13:34 PM COMPARISON: No prior studies available for comparison. CLINICAL INDICATIONS: preop RELEVANT CLINICAL HISTORY: Z:Preop exam for internal medicine G50.0:Trigeminal neuralgia K75.81:Liver cirrhosis secondary to nonalcoholic steatohepatitis (JEWELL) K74.60:Liver cirrhosis secondary to nonalcoholic steatohepatitis (JEWELL) G40.909:Seizure disorder E11.9:Type 2 diabetes mellitus without complication, with long-term current use of insulin Z79.4:Type 2 diabetes mellitus without complication, with long-term current use of insulin Z94.4:S/P liver transplant FINDINGS: (Adequate technique) Implanted Devices: None Lungs: Mild, nonspecific interstitial thickening, otherwise clear, without mass, interstitial disease, or consolidation. Pleural Spaces: No pleural effusion. No pneumothorax. Mediastinum and Erin: Normal Cardiac silhouette and great vessels: Normal heart size. Unremarkable aorta. Chest Wall: Normal IMPRESSION: No acute cardiopulmonary disease I personally viewed and interpreted these images and I have reviewed and approved this report. Normal [facility] XR Chest PA and Lateralon IMPRESSION: No acute cardiopulmonary disease I personally viewed and interpreted these images and I have reviewed and approved this report. OLOGY EXAM: XR CHEST PA AN D LATERAL 2 VIEWS, 08/25/2024 13:34 PM COMPARISON: No prior studies available for comparison. CLINICAL INDICATIONS: preop RELEVANT CLINICAL HISTORY: Z:Preop exam for internal medicine G50.0:Trigeminal neuralgia K75.81:Liver cirrhosis secondary to nonalcoholic steatohepatitis (JEWELL) K74.60:Liver cirrhosis secondary to nonalcoholic steatohepatitis (JEWELL) G40.909:Seizure disorder E11.9:Type 2 diabetes mellitus without complication, with long-term current use of insulin Z79.4:Type 2 diabetes mellitus without complication, with long-term current use of insulin Z94.4:S/P liver transplant FINDINGS: (Adequate technique) Implanted Devices: None Lungs: Mild, nonspecific interstitial thickening, otherwise clear, without mass, interstitial disease, or consolidation. Pleural Spaces: No pleural effusion. No pneumothorax. Mediastinum and Erin: Normal Cardiac silhouette and great vessels: Normal heart size. Unremarkable aorta. Chest Wall: Normal RADIOLOGY Ronnie Goff MD - 0 08/25/2024 EXAM: XR CHEST PA AND LATERAL 2 VIEWS, 08/25/2024 13:34 PM COMPARISON: No prior studies available for comparison. CLINICAL INDICATIONS: preop RELEVANT CLINICAL HISTORY: Z01.818:Preop exam for internal medicine G50.0:Trigeminal neuralgia K75.81:Liver cirrhosis secondary to nonalcoholic steatohepatitis (JEWELL) K74.60:Liver cirrhosis secondary to nonalcoholic steatohepatitis (JEWELL) G40.909:Seizure disorder E11.9:Type 2 diabetes mellitus without complication, with long-term current use of insulin Z79.4:Type 2 diabetes mellitus without complication, with long-term current use of insulin Z94.4:S/P liver transplant FINDINGS: (Adequate technique) Implanted Devices: None Lungs: Mild, nonspecific interstitial thickening, otherwise clear, without mass, interstitial disease, or consolidation. Pleural Spaces: No pleural effusion. No pneumothorax. Mediastinum and Erin: Normal Cardiac silhouette and great vessels: Normal heart size. Unremarkable aorta. Chest Wall: Normal IMPRESSION IMPRESSION: No acute cardiopulmonary disease I personally viewed and interpreted these images and I have reviewed and approved this report. [facility] Radiology Study observation (narrative) [facility] XR Chest PA and LateralOrder ed By: Ronnie Goff on 08-25-2024 [facility] Work Phone: [phone] 05-22-2024 M100.817 Pending SARS-CoV-2 (COVID 19) Negative INFLUENZA A Negative INFLUENZA B Negative RSV PCR Negative Normal [facility] Comment on above: Performed By: #### M 100.877 ####[facility] [address] [place], [address] 12 Lead EKGon 05-20-2024 12 Lead EKG [facility] Cardiovascular Services [address] [place] [address] 12 Lead EKG 05/20/24 1400 MR#: [id number] Acct: [id number] Name: STEPHANE CABALLERO Rep #: [id number] : 1965 59 From: Ankush Francis MD Attending Dr: Status: DEP ER Ordering Dr: Denise Mayo Date: 05/20/24 Location: ED Sex: F C Admitted: Test Reason : DYSP Blood Pressure : */* mmHG Vent. Rate : 89 BPM Atrial Rate : 89 BPM P-R Int : 144 ms QRS Dur : 80 ms QT Int : 384 ms P-R-T Axes : 38 -26 39 degrees QTcB Int : 467 ms Normal sinus rhythm Inferior infarct (cited on or before 21-Nov-2021) Possible Anterior infarct (cited on or before 21-Nov-2021) Abnormal ECG Confirmed by Ankush Francis ([id number]), acquisitions editor JHONY DIAZ ([id number]) on 05/21/2024 1:42:54 PM Referred By: RAKESH Confirmed By: Ankush Francis 05/21/24 1342 Date Ankush Francis MD CC: Dr. Geeta Odell MD; Dr. Apolinar Kamara, DO; FERNANDA Tracey Signed Normal [facility] Abdomen/Pelvis W IV Cont ONL Yon 05-20-2024 Abdomen/Pelvis W IV Cont ONLY [facility] Imaging Services [address] [place], [place] [address] Abdomen/Pelvis W IV Cont ONLY MR#: [id number] Acct: [id number] Name: STEPHANE CABALLERO Rep #: [id number] : 1965 F 59 From: Herve ruiz MD PCP: Dr. Geeta Odell MD Status: REG ER Study: Abdomen/Pelvis W IV Cont ONLY Date of Exam: Exam# [id number] Ordering Dr: Denise Mayo [id number] STUDY: CT ABDOMEN AND PELVIS WITH CONTRAST REASON FOR EXAM: Female, 59 years old. abdominal paim, hx liver transplant RADIATION DOSAGE (If Supplied By Facility): CTDIvol = ( 20.15 ) mGy, DLP = ( 701.46 ) mGycm TECHNIQUE: Transaxial images were obtained from the dome of the diaphragm to the symphysis pubis without oral contrast. IV 100mL Isovue-370 was administered. Sagittal and coronal images were reconstructed. Individualized dose optimization techniques were used for this CT. COMPARISON: None. FINDINGS: The visualized lung bases are unremarkable. The visualized portions of the heart are within normal limits. There is apparent surgical clips in the clare hepatis consistent with the history of liver transplant. There is a normal appearance of the liver. There is absent gallbladder. There is mild splenomegaly. There is a normal pancreas. Normal bilateral adrenal glands. Normal right kidney. Normal left kidney. Evaluation of the GI tract is limited by absence of oral contrast. Esophageal varices are seen surrounding the lower esophagus and extending into the epigastric space. These are significantly more prominent than on the previous study and suggest portal hypertension. Cannot exclude stomach wall thickening. No dilated loops of bowel or evidence for obstruction. Cannot exclude segmental thickening of the rose of the small or large bowel. Cannot exclude enteritis or colitis. Moderate diffuse fecal retention. Diverticulosis without definite diverticulitis. Appendix within normal limits. Normal abdominal aorta. Normal inferior vena cava. Normal retroperitoneum. Normal urinary bladder. There is absence of the uterus consistent with a prior hysterectomy. Normal abdominal wall. There are diffuse degenerative changes of the visualized lumbar spine. CT/Abdomen/Pelvis W IV Cont ONLY IMPRESSION: No acute abnormality is seen. However it appears the patient is developing esophageal and upper abdominal portosystemic varices suggestive of portal venous hypertension. Electronically Signed: Herve Henriquez MD at 19:00 EST , CC: Dr. Geeta Odell MD; FERNANDA Tracey Administrative Court Justice: Signed Normal [facility] Ammoniaon 05-20-2024 Ammonia (P) [Moles/Vol] 17.0 umol/L Normal 11-32 [facility] Comment on above: Performed By: #### L 503.5510 ####[facility] [address] [place], [address] BNP,B-Type NATRIURETIC PEPTI Jeannette 05-20-2024 Natriuretic peptide B (Bld) [Mass/Vol] 33.8 pg/mL Normal 0-100 [facility] Comment on above: Performed By: #### L 503.6620 ####[facility] [address] [place], [address] CBC W/Diff, Automatedon - Absolute Lymph 1.61 X10 3/uL Normal 0.83-4.51 [facility] Comment on above: Performed By: #### L 100.0100, L501.4020, L300.3900, L500.4050 ####[facility] [address] [place], [address] Absolute Neut 4.8 X10 3/uL Normal 2.0-7.7 [facility] Comment on above: Performed By: #### L 100.0100, L501.4020, L300.3900, L500.4050 ####[facility] [address] [place], [address] Basophils/100 WBC (Bld) 0.3 % Normal 0-1 [facility] Comment on above: Performed By: #### L 100.0100, L501.4020, L300.3900, L500.4050 ####[facility] [address] [place], [address] Eosinophils/100 WBC (Bld) 0.3 % Normal 0-5 [facility] Comment on above: Performed By: #### L 100.0100, L501.4020, L300.3900, L500.4050 ####[facility] [address] [place], [address] Erythrocyte distribution width (RBC) [Ratio] 13.1 % Normal 11.6-14.6 [facility] Comment on above: Performed By: #### L 100.0100, L501.4020, L300.3900, L500.4050 ####[facility] [address] [place], [address] Hematocrit (Bld) [Volume fraction] 39.4 % Normal 37-47 [facility] Comment on above: Performed By: #### L 100.0100, L501.4020, L300.3900, L500.4050 ####[facility] [address] [place], [address] Hemoglobin (Bld) [Mass/Vol] 13.6 g/dL Normal 12.0-15.0 [facility] Comment on above: Performed By: #### L 100.0100, L501.4020, L300.3900, L500.4050 ####[facility] [address] [place], [address] IG% 0.400 Normal 0.0-0.9 [facility] Comment on above: Result Comment: IG% - Immature Granulocytes (promyelocytes, myelocytes and metamyelocytes) > 1% indicates that a LEFT SHIFT is Present. Performed By: #### L 100.0100, L501.4020, L300.3900, L500.4050 ####[facility] [address] [place], [address] Lymphocytes/100 WBC (Bld) 23.0 % Normal 19-41 [facility] Comment on above: Performed By: #### L 100.0100, L501.4020, L300.3900, L500.4050 ####[facility] [address] [place], [address] MCH (RBC) [Entitic mass] 28.7 pg Normal 27.0-32.0 [facility] Comment on above: Performed By: #### L 100.0100, L501.4020, L300.3900, L500.4050 ####[facility] [address] [place], [address] MCHC (RBC) [Mass/Vol] 34.5 g/dL Normal 32-36 [facility] Comment on above: Performed By: #### L 100.0100, L501.4020, L300.3900, L500.4050 ####[facility] [address] [place], [address] MCV (RBC) [Entitic vol] 83.1 fL Normal 81-99 [facility] Comment on above: Performed By: #### L 100.0100, L501.4020, L300.3900, L500.4050 ####[facility] [address] [place], [address] Monocytes/100 WBC (Bld) 7.7 % Normal 0-10 [facility] Comment on above: Performed By: #### L 100.0100, L501.4020, L300.3900, L500.4050 ####[facility] [address] [place], [address] Neutrophils/100 WBC (Bld) 68.3 % Normal 47-70 [facility] Comment on above: Performed By: #### L 100.0100, L501.4020, L300.3900, L500.4050 ####[facility] [address] [place], [address] Nucleated RBC (Bld) [#/Vol] 0 10*3/uL Normal 0-5 [facility] Comment on above: Performed By: #### L 100.0100, L501.4020, L300.3900, L500.4050 ####[facility] [address] [place], [address] Platelet mean volume (Bld) [Entitic vol] 10.9 fL Normal 6.2-12.0 [facility] Comment on above: Performed By: #### L 100.0100, L501.4020, L300.3900, L500.4050 ####[facility] [address] [place], [address] Platelets (Bld) [#/Vol] 92 10*3/uL Low 150-450 [facility] Comment on above: Performed By: #### L 100.0100, L501.4020, L300.3900, L500.4050 ####[facility] [address] [place], [address] RBC (Bld) [#/Vol] 4.74 10*6/uL Normal 4.2-5.4 [facility] Comment on above: Performed By: #### L 100.0100, L501.4020, L300.3900, L500.4050 ####[facility] [address] [place], [address] RDW SD 39.6 fl Normal 35.1-43.9 [facility] Comment on above: Performed By: #### L 100.0100, L501.4020, L300.3900, L500.4050 ####[facility] [address] [place], [address] WBC (Bld) [#/Vol] 7.0 10*3/uL Normal 4.4-11.0 [facility] Comment on above: Performed By: #### L 100.0100, L501.4020, L300.3900, L500.4050 ####[facility] [address] [place], [address] CTA Chest W/WO Contraston CTA Chest W/WO Contrast [facility] Imaging Services [address], [place] [address] CTA Chest W/WO Contrast MR#: [id number] Acct: [id number] Name: STEPHANE CABALLERO Rep #: [id number] : 1965 F 59 From: Terrance hancock MD PCP: Dr. Geeta Odell MD Status: [facility] ER Study: CTA Chest W/WO Contrast Date of Exam: 05/20/24 Exam# [id number] Ordering Dr: Denise Mayo [id number] STUDY: CTA CHEST REASON FOR EXAM: Female, 59 years old. SOB, hx blood clot RADIATION DOSAGE (If Supplied By Facility): CTDIvol = ( 20.24 ) mGy, DLP = ( 455.27 ) mGycm TECHNIQUE: The examination was performed with the intravenous administration of IV 100mL Isovue-370. Post-processing of the angiographic images was performed, with multiplanar reformation and 3D reconstruction. Individualized dose optimization techniques were used for this CT. COMPARISON: Comparison is made with prior chest radiograph done earlier in the day as well as prior CT of the chest dated December 01, 2020. FINDINGS: Normal enhancement of the main pulmonary artery and right and left pulmonary arteries. Normal enhancement of the bilateral peripheral pulmonary arteries. There is no demonstrated pulmonary embolism. Normal thoracic aorta and visualized great vessels. There is no demonstrated aortic dissection. Normal heart and pericardium. Normal mediastinum. Normal hilar regions. Normal visualized trachea and bronchi. The lungs are well expanded. Normal pulmonary parenchyma. Normal pleura. Normal chest wall structures. Normal osseous structures. Small hiatal hernia. The patient is status post liver transplantation. CT/CTA Chest W/WO Contrast IMPRESSION: Normal CTA chest examination, without a demonstrated pulmonary embolism or arterial dissection. Electronically Signed: Terrance Kim MD at 15:32 EST Reading Location ID and State: [facility] / [place] , Service support , CC: Dr. Geeta Odell MD; FERNANDA Tracey Administrative Court Justice: Signed Normal [facility] Chest PA and Lateralon 05-20 Chest PA and Lateral [facility] Imaging Services [address], [place] [address] Chest PA and Lateral MR#: [id number] Acct: [id number] Name: STEPHANE CABALLERO Rep #: [id number] : 1965 F 59 From: Terrance hancock MD PCP: Dr. Geeta Odell MD Status: [facility] Study: Chest PA and Lateral Date of Exam: 05/20/24 Exam# [id number] Ordering Dr: Denise Mayo [id number] STUDY: X-RAY CHEST REASON FOR EXAM: Female, 59 years old. SOB TECHNIQUE: PA and lateral views of the chest. COMPARISON: Comparison is made with prior study dated December 09, 2022. FINDINGS: The lungs are clear and expanded. There is no demonstrated pleural abnormality. Normal size heart. Normal mediastinum and erin. Normal visualized pulmonary arteries. Normal visualized aortic arch and descending thoracic aorta. There are diffuse degenerative changes of the visualized thoracic spine. Normal visualized ribs, clavicles, and shoulders. Surgical clips are seen in the right upper abdomen. RAD/Chest PA and Lateral IMPRESSION: No acute abnormality is seen. Electronically Signed: Terrance Kim MD at 15:27 EST , CC: Dr. Geeta Odell MD; FERNANDA Tracey Administrative Court Justice: Signed Normal [facility] Comprehensive Metabolic Prof ilon 05-20-2024 Albumin [Mass/Vol] 3.2 g/dL Normal 3.2-5.0 [facility] Comment on above: Order Comment: 'TROP ' Serial specimen #1, #2 or #3: 1 Performed By: #### L 100.0100, L501.4020, L300.3900, L500.4050 ####[facility] [address] [place], [address] Albumin/Globulin [Mass ratio] 0.8 {ratio} Low 0.9-2.4 [facility] Comment on above: Order Comment: 'TROP ' Serial specimen #1, #2 or #3: 1 Performed By: #### L 100.0100, L501.4020, L300.3900, L500.4050 ####[facility] [address] [place], [address] ALK P 107 U/L Normal 45-117 [facility] Comment on above: Order Comment: 'TROP ' Serial specimen #1, #2 or #3: 1 Performed By: #### L 100.0100, L501.4020, L300.3900, L500.4050 ####[facility] [address] [place], [address] ALT [Catalytic activity/Vol] 27 U/L Normal 13-56 [facility] Comment on above: Order Comment: 'TROP ' Serial specimen #1, #2 or #3: 1 Performed By: #### L 100.0100, L501.4020, L300.3900, L500.4050 ####[facility] [address] [place], [address] AST [Catalytic activity/Vol] 32 U/L Normal 15-37 [facility] Comment on above: Order Comment: 'TROP ' Serial specimen #1, #2 or #3: 1 Performed By: #### L 100.0100, L501.4020, L300.3900, L500.4050 ####[facility] [address] [place], [address] Bilirubin [Mass/Vol] 0.90 mg/dL Normal 0.20-1.00 [facility] Comment on above: Order Comment: 'TROP ' Serial specimen #1, #2 or #3: 1 Result Comment: For patients on eltrombopag therapy, use of Dimension [place] TBIL is not recommended. Performed By: #### L 100.0100, L501.4020, L300.3900, L500.4050 ####[facility] [address] [place], [address] BUN/CRE 9.1 RATIO Low 10-20 [facility] Comment on above: Order Comment: 'TROP ' Serial specimen #1, #2 or #3: 1 Performed By: #### L 100.0100, L501.4020, L300.3900, L500.4050 ####[facility] [address] [place], [address] CA,Total 8.8 mg/dL Normal 8.5-10.1 [facility] Comment on above: Order Comment: 'TROP ' Serial specimen #1, #2 or #3: 1 Performed By: #### L 100.0100, L501.4020, L300.3900, L500.4050 ####[facility] [address] [place], [address] Chloride [Moles/Vol] 103 mmol/L Normal 98-107 [facility] Comment on above: Order Comment: 'TROP ' Serial specimen #1, #2 or #3: 1 Performed By: #### L 100.0100, L501.4020, L300.3900, L500.4050 ####[facility] [address] [place], [address] CO2 [Moles/Vol] 25.0 mmol/L Normal 21.0-32.0 [facility] Comment on above: Order Comment: 'TROP ' Serial specimen #1, #2 or #3: 1 Performed By: #### L 100.0100, L501.4020, L300.3900, L500.4050 ####[facility] [address] [place], [address] Creatinine [Mass/Vol] 1.21 mg/dL High 0.55-1.02 [facility] Comment on above: Order Comment: 'TROP ' Serial specimen #1, #2 or #3: 1 Result Comment: The validity of the calculated GFR GFRAA in patients over 70 years has not been determined. Clinical correlation is essential. Performed By: #### L 100.0100, L501.4020, L300.3900, L500.4050 ####[facility] [address] [place], [address] ECRCL 48.66 ml/min Normal [facility] Comment on above: Order Comment: 'TROP ' Serial specimen #1, #2 or #3: 1 Performed By: #### L 100.0100, L501.4020, L300.3900, L500.4050 ####[facility] [address] [place], [address] EST GFR - AA 59 mL/min Low >60 [facility] Comment on above: Order Comment: 'TROP ' Serial specimen #1, #2 or #3: 1 Result Comment: Afri can [place] GFR Calc Performed By: #### L 100.0100, L501.4020, L300.3900, L500.4050 ####[facility] [address] [place], [address] GAP 8 Normal 5-15 [facility] Comment on above: Order Comment: 'TROP ' Serial specimen #1, #2 or #3: 1 Performed By: #### L 100.0100, L501.4020, L300.3900, L500.4050 ####[facility] [address] [place], [address] GFR/1.73 sq M.predicted among non-blacks MDRD (S/P/Bld) [Vol rate/Area] 49 mL/min/{1.73_m2} Low >60 [facility] Comment on above: Order Comment: 'TROP ' Serial specimen #1, #2 or #3: 1 Result Comment: Non- GFR Calc Performed By: #### L 100.0100, L501.4020, L300.3900, L500.4050 ####[facility] [address] [place], [address] Globulin (S) [Mass/Vol] 4.0 g/dL Normal 2.2-4.2 [facility] Comment on above: Order Comment: 'TROP ' Serial specimen #1, #2 or #3: 1 Performed By: #### L 100.0100, L501.4020, L300.3900, L500.4050 ####[facility] [address] [place], [address] Glucose [Mass/Vol] 200 mg/dL High 74-106 [facility] Comment on above: Order Comment: 'TROP ' Serial specimen #1, #2 or #3: 1 Result Comment: Gluc ose result greater than or equal to 200 mg/dL suggests DIABETES MELLITUS per A.D.A. criteria. Performed By: #### L 100.0100, L501.4020, L300.3900, L500.4050 ####[facility] [address] [place], [address] Potassium [Moles/Vol] 3.4 mmol/L Low 3.5-5.1 [facility] Comment on above: Order Comment: 'TROP ' Serial specimen #1, #2 or #3: 1 Performed By: #### L 100.0100, L501.4020, L300.3900, L500.4050 ####[facility] [address] [place], [address] Sodium [Moles/Vol] 136 mmol/L Normal 136-145 [facility] Comment on above: Order Comment: 'TROP ' Serial specimen #1, #2 or #3: 1 Performed By: #### L 100.0100, L501.4020, L300.3900, L500.4050 ####[facility] [address] [place], [address] T PROT 7.2 g/dL Normal 6.4-8.2 [facility] Comment on above: Order Comment: 'TROP ' Serial specimen #1, #2 or #3: 1 Performed By: #### L 100.0100, L501.4020, L300.3900, L500.4050 ####[facility] [address] [place], [address] Urea nitrogen [Mass/Vol] 11 mg/dL Normal 7-18 [facility] Comment on above: Order Comment: 'TROP ' Serial specimen #1, #2 or #3: 1 Performed By: #### L 100.0100, L501.4020, L300.3900, L500.4050 ####[facility] [address] [place], [address] Emergency Department Summary on 05-20-2024 Emergency Department Summary [facility] Medical Records Department [address] [place] [address] Emergency Department Summary 05/20/24 MR#: [id number] Acct: [id number] Name: STEPHANE CABALLERO Rep #: [id number] : 1965 59 From: Denise MICHAEL PCP: Dr. Geeta Odell MD Status:DEP ER Location: ED Patient was seen and examined with physician primary teaching assistant Raquel All components of the history and physical confirmed and agreed. History of present illness and physical exam: Patient is a 59-year-old female past medical history of epilepsy, migraines, pseudoseizures, fibromyalgia, Jewell stage IV status post liver transplant in 2018 who presents to the emergency department with a chief complaint of abnormal liver labs. She states that she follows up with Dr. June due to her history of Jewell and liver transplant. States that this was originally done in [place]. She states that she has been very fatigued over the past month and is what originally prompted them to have blood drawn. She also notes that she has been short of breath with exertion over the past several days. She is concerned with her ammonia levels as well. Patient denies any recent sick contacts Review of systems agree with above Physical exam: Agree with above MDM Patient is a 59-year-old female who presents to the Emergency Department with a chief complaint of fatigue and abnormal blood draw in the outpatient setting. Patient will have a workup performed here on the differential diagnose includes but not limited to portal venous thrombosis, krqqg-goajby-xrkk disease, UTI, pneumonia, PE. Once workup is obtained reviewed she will be reevaluated. Patient's CBC reviewed and showed no evidence leukocytosis white blood count normal at 7, hemoglobin stable 13.6, platelet count was noted to be 92. Patient's sodium was noted be 136, potassium 3.4, creatinine was 1.21. Patient's INR normal at 1.2. Patient's AST and ALT were 32 and 27 respectively which is improved from her previous blood draw, ammonia was noted be normal at 17, troponin normal at 7. Patient proBNP normal at 33.8. Patient's urinalysis reviewed and showed 500 leukocyte esterase 0-5 white cells with 1+ bacteria. Patient's chest x-ray reviewed by myself and by radiology showed no acute cardiopulmonary processes. Patient's CTA of her chest showed no acute pulmonary embolism or arterial dissection. Patient CT on pelvis with IV contrast showed no acute abnormality seen. However it appears that the patient is developing esophageal and upper abdominal post systematic varices suggestive of portal venous hypertension. Patient states that she does have a history of varices and has had banding in the past. She was recommended to have close follow-up with her primary care physician and Dr. June. Patient would like to go home at this point time she was encouraged return with worsening symptoms or concerns. All question concerns answered she is discharged home in stable condition Final impression: Shortness of breath Medical screening exam History of liver transplant 2018 Esophageal varices Disposition: Patient will be discharged home in stable condition Supervising attending attestation: Apolinar RIDLEY History of Present Illness Chief Complaint: Abn Labs Narrative Narrative: Patient presenting today with concerns for abnormal liver labs. She reports that she follows with Dr. June due to history of JEWELL and liver transplant in 2018. She reports that over the past month she has felt fatigued. She has been short of breath with exertion over the last several days and reports intermittent lightheadedness and nausea. She is concerned that her ammonia levels could be elevated as she has had, "memory issues" and difficulty remembering certain things. She reports occasional left lower quadrant abdominal pain. She denies vomiting, diarrhea, dysuria, and chest pain. She does have a remote history of DVT when she was . She has a PMH of epilepsy, migraines, memory loss, pseudoseizures, fibromyalgia and JEWELL stage IV s/p liver transplant in 05/2018. [facility] Medical History Asthma COPD (chronic obstructive pulmonary disease) Osteoporosis Pneumonia Acute hyponatremia Nausea vomiting Acute abdominal pain in right flank Major depressive disorder PTSD (post-traumatic stress disorder) Fatigue Gastric ulcer Seasonal allergies Neuropathy Cirrhosis Serum ammonia increased Wears contact lenses Wears glasses Cancer Alcohol use Bladder disease Arthritis DVT (deep venous thrombosis) Restless legs Back pain Migraine headache TIA (transient ischemic attack) Blackout Seizures Dietary restriction History of ulceration History of IBS Gastric reflux Non-smoker Shortness of breath on exertion Leg (more content not included)... Normal [facility] L501.4020on 05-20-2024 TROPONIN-I HS 7 pg/mL Normal 3.0-54.0 [facility] Comment on above: Order Comment: 'TROP ' Serial specimen #1, #2 or #3: 1 Result Comment: Nicko cunningham Note: New Test Units and Gender Specific Reference Ranges. For more information see Policy Stat Procedure [place] High Sensitivity Troponin (TNIH) and attachments. Performed By: #### L 100.0100, L501.4020, L300.3900, L500.4050 ####[facility] [address] [place], [address] Prothrombin Time w/INRon INR Coag (PPP) [Relative time] 1.2 {INR} Normal [facility] Comment on above: Performed By: #### L 100.0100, L501.4020, L300.3900, L500.4050 ####[facility] [address] [place], [address] PT Coag (PPP) [Time] 15.4 s High 11.7-14.9 [facility] Comment on above: Performed By: #### L 100.0100, L501.4020, L300.3900, L500.4050 ####[facility] [address] [place], [address] Urinalysis, Completeon 05-20 BACTERIA 1+ /hpf Normal None Seen [facility] Comment on above: Order Comment: SUZETTE CTOR TO SPECIFY Performed By: #### L 400.0001 #### [facility] [address] [place], [address] EPI,SQUAMOUS 0-5 SEEN Normal 5-10 [facility] Comment on above: Order Comment: SUZETTE CTOR TO SPECIFY Performed By: #### L 400.0001 #### [facility] [address] [place], [address] EPI,TRANSITION 0-5 SEEN Normal 0-5 [facility] Comment on above: Order Comment: SUZETTE CTOR TO SPECIFY Performed By: #### L 400.0001 #### [facility] [address] [place], [address] WBC 0-5 SEEN Normal 0-5 [facility] Comment on above: Order Comment: COLLE CTOR TO SPECIFY Performed By: #### L 400.0001 #### [facility] [address] [place], [address] Mucus Ql (Urine sed) 0 SEEN Normal [facility] Comment on above: Order Comment: COLLE CTOR TO SPECIFY Performed By: #### L 400.0001 #### [facility] [address] [place], [address] RBC 0 SEEN Normal 0-5 [facility] Comment on above: Order Comment: COLLE CTOR TO SPECIFY Performed By: #### L 400.0001 #### [facility] [address] [place], [address] CBC W/Diff, Automatedon 11- PLT EST MOD DEC Normal ADEQ [facility] Comment on above: Performed By: #### L 500.4050, L300.3900, L100.0100 ####[facility] [address] [place], [address] PLT MORPH LARGE Normal [facility] Comment on above: Performed By: #### L 500.4050, L300.3900, L100.0100 ####[facility] [address] [place], [address] Comprehensive Metabolic Prof ilon 05-11-2024 Albumin [Mass/Vol] 3.0 g/dL Low 3.2-5.0 [facility] Comment on above: Performed By: #### L 500.4050, L300.3900, L100.0100 #### [facility] [address] [place], [address] Albumin/Globulin [Mass ratio] 0.8 {ratio} Low 0.9-2.4 [facility] Comment on above: Performed By: #### L 500.4050, L300.3900, L100.0100 #### [facility] [address] [place], [address] ALK P 115 U/L Normal 45-117 [facility] Comment on above: Performed By: #### L 500.4050, L300.3900, L100.0100 #### [facility] [address] [place], [address] ALT [Catalytic activity/Vol] 37 U/L Normal 13-56 [facility] Comment on above: Performed By: #### L 500.4050, L300.3900, L100.0100 #### [facility] [address] [place], [address] AST [Catalytic activity/Vol] 47 U/L High 15-37 [facility] Comment on above: Performed By: #### L 500.4050, L300.3900, L100.0100 #### [facility] [address] [place], [address] Bilirubin [Mass/Vol] 1.20 mg/dL High 0.20-1.00 [facility] Comment on above: Result Comment: For patients on eltrombopag therapy, use of Dimension [place] TBIL is not recommended. Performed By: #### L 500.4050, L300.3900, L100.0100 #### [facility] [address] [place], [address] BUN/CRE 12.9 RATIO Normal 10-20 [facility] Comment on above: Performed By: #### L 500.4050, L300.3900, L100.0100 #### [facility] [address] [place], [address] CA,Total 8.7 mg/dL Normal 8.5-10.1 [facility] Comment on above: Performed By: #### L 500.4050, L300.3900, L100.0100 #### [facility] [address] [place], [address] Chloride [Moles/Vol] 106 mmol/L Normal 98-107 [facility] Comment on above: Performed By: #### L 500.4050, L300.3900, L100.0100 #### [facility] [address] [place], [address] CO2 [Moles/Vol] 28.0 mmol/L Normal 21.0-32.0 [facility] Comment on above: Performed By: #### L 500.4050, L300.3900, L100.0100 #### [facility] [address] [place], [address] Creatinine [Mass/Vol] 1.01 mg/dL Normal 0.55-1.02 [facility] Comment on above: Result Comment: The validity of the calculated GFR GFRAA in patients over 70 years has not been determined. Clinical correlation is essential. Performed By: #### L 500.4050, L300.3900, L100.0100 #### [facility] [address] [place], [address] EST GFR - AA 73 mL/min Normal >60 [facility] Comment on above: Result Comment: Afri can [place] GFR Calc Performed By: #### L 500.4050, L300.3900, L100.0100 #### [facility] [address] [place], [address] GAP 4 Low 5-15 [facility] Comment on above: Performed By: #### L 500.4050, L300.3900, L100.0100 #### [facility] [address] [place], [address] GFR/1.73 sq M.predicted among non-blacks MDRD (S/P/Bld) [Vol rate/Area] 60 mL/min/{1.73_m2} Normal >60 [facility] Comment on above: Result Comment: Non- GFR Calc Performed By: #### L 500.4050, L300.3900, L100.0100 #### [facility] [address] [place], [address] Globulin (S) [Mass/Vol] 3.9 g/dL Normal 2.2-4.2 [facility] Comment on above: Performed By: #### L 500.4050, L300.3900, L100.0100 #### [facility] [address] [place], [address] Glucose [Mass/Vol] 245 mg/dL High 74-106 [facility] Comment on above: Result Comment: Gluc ose result greater than or equal to 200 mg/dL suggests DIABETES MELLITUS per A.D.A. criteria. Performed By: #### L 500.4050, L300.3900, L100.0100 #### [facility] [address] [place], [address] Potassium [Moles/Vol] 4.0 mmol/L Normal 3.5-5.1 [facility] Comment on above: Performed By: #### L 500.4050, L300.3900, L100.0100 #### [facility] [address] [place], [address] Sodium [Moles/Vol] 137 mmol/L Normal 136-145 [facility] Comment on above: Performed By: #### L 500.4050, L300.3900, L100.0100 #### [facility] [address] [place], [address] T PROT 6.9 g/dL Normal 6.4-8.2 [facility] Comment on above: Performed By: #### L 500.4050, L300.3900, L100.0100 #### [facility] [address] [place], [address] Urea nitrogen [Mass/Vol] 13 mg/dL Normal 7-18 [facility] Comment on above: Performed By: #### L 500.4050, L300.3900, L100.0100 #### [facility] [address] [place], [address] Prothrombin Time w/INRon INR Coag (PPP) [Relative time] 1.2 {INR} Normal [facility] Comment on above: Performed By: #### L 500.4050, L300.3900, L100.0100 #### [facility] [address] [place], [address] PT Coag (PPP) [Time] 15.1 s High 11.7-14.9 [facility] Comment on above: Performed By: #### L 500.4050, L300.3900, L100.0100 #### [facility] [address] [place], [address] Comprehensive Metabolic Prof ilon 05-06-2024 Albumin [Mass/Vol] 3.0 g/dL Low 3.2-5.0 [facility] Comment on above: Performed By: #### L 501.9520, L502.0250, L500.4050, L500.4100 ####[facility] [address] [place], [address] Albumin/Globulin [Mass ratio] 0.8 {ratio} Low 0.9-2.4 [facility] Comment on above: Performed By: #### L 501.9520, L502.0250, L500.4050, L500.4100 ####[facility] [address] [place], [address] ALK P 122 U/L High 45-117 [facility] Comment on above: Performed By: #### L 501.9520, L502.0250, L500.4050, L500.4100 ####[facility] [address] [place], [address] ALT [Catalytic activity/Vol] 49 U/L Normal 13-56 [facility] Comment on above: Performed By: #### L 501.9520, L502.0250, L500.4050, L500.4100 ####[facility] [address] [place], [address] AST [Catalytic activity/Vol] 61 U/L High 15-37 [facility] Comment on above: Performed By: #### L 501.9520, L502.0250, L500.4050, L500.4100 ####[facility] [address] [place], [address] Bilirubin [Mass/Vol] 0.80 mg/dL Normal 0.20-1.00 [facility] Comment on above: Result Comment: For patients on eltrombopag therapy, use of Dimension [place] TBIL is not recommended. Performed By: #### L 501.9520, L502.0250, L500.4050, L500.4100 ####[facility] [address] [place], [address] BUN/CRE 7.8 RATIO Low 10-20 [facility] Comment on above: Performed By: #### L 501.9520, L502.0250, L500.4050, L500.4100 ####[facility] [address] [place], [address] CA,Total 8.4 mg/dL Low 8.5-10.1 [facility] Comment on above: Performed By: #### L 501.9520, L502.0250, L500.4050, L500.4100 ####[facility] [address] [place], [address] Chloride [Moles/Vol] 107 mmol/L Normal 98-107 [facility] Comment on above: Performed By: #### L 501.9520, L502.0250, L500.4050, L500.4100 ####[facility] [address] [place], [address] CO2 [Moles/Vol] 28.0 mmol/L Normal 21.0-32.0 [facility] Comment on above: Performed By: #### L 501.9520, L502.0250, L500.4050, L500.4100 ####[facility] [address] [place], [address] Creatinine [Mass/Vol] 0.77 mg/dL Normal 0.55-1.02 [facility] Comment on above: Result Comment: The validity of the calculated GFR GFRAA in patients over 70 years has not been determined. Clinical correlation is essential. Performed By: #### L 501.9520, L502.0250, L500.4050, L500.4100 ####[facility] [address] [place], [address] EST GFR - AA 100 mL/min Normal >60 [facility] Comment on above: Result Comment: Afri can [place] GFR Calc Performed By: #### L 501.9520, L502.0250, L500.4050, L500.4100 ####[facility] [address] [place], [address] GAP 4 Low 5-15 [facility] Comment on above: Performed By: #### L 501.9520, L502.0250, L500.4050, L500.4100 ####[facility] [address] [place], [address] GFR/1.73 sq M.predicted among non-blacks MDRD (S/P/Bld) [Vol rate/Area] 83 mL/min/{1.73_m2} Normal >60 [facility] Comment on above: Result Comment: Non- GFR Calc Performed By: #### L 501.9520, L502.0250, L500.4050, L500.4100 ####[facility] [address] [place], [address] Globulin (S) [Mass/Vol] 3.8 g/dL Normal 2.2-4.2 [facility] Comment on above: Performed By: #### L 501.9520, L502.0250, L500.4050, L500.4100 ####[facility] [address] [place], [address] Glucose [Mass/Vol] 174 mg/dL High 74-106 [facility] Comment on above: Result Comment: Fast ing Glucose result greater than or equal to 126 mg/dL suggests DIABETES MELLITUS per A.D.A. criteria. Performed By: #### L 501.9520, L502.0250, L500.4050, L500.4100 ####[facility] [address] [place], [address] Potassium [Moles/Vol] 3.9 mmol/L Normal 3.5-5.1 [facility] Comment on above: Performed By: #### L 501.9520, L502.0250, L500.4050, L500.4100 ####[facility] [address] [place], [address] Sodium [Moles/Vol] 139 mmol/L Normal 136-145 [facility] Comment on above: Performed By: #### L 501.9520, L502.0250, L500.4050, L500.4100 ####[facility] [address] [place], [address] T PROT 6.8 g/dL Normal 6.4-8.2 [facility] Comment on above: Performed By: #### L 501.9520, L502.0250, L500.4050, L500.4100 ####[facility] [address] [place], [address] Urea nitrogen [Mass/Vol] 6 mg/dL Low 7-18 [facility] Comment on above: Performed By: #### L 501.9520, L502.0250, L500.4050, L500.4100 ####[facility] [address] [place], [address] Lipid Profileon 05-06-2024 Cholesterol [Mass/Vol] 165 mg/dL Normal 200 [facility] Comment on above: Result Comment: <200 mg/dL Desirable 200-240 mg/dL Borderline >240 mg/dL High Risk Performed By: #### L 501.9520, L502.0250, L500.4050, L500.4100 ####[facility] [address] [place], [address] Cholesterol in HDL [Mass/Vol] 48 mg/dL Normal [facility] Comment on above: Result Comment: The drugs N-Acetylcysteine and Metamizole may falsely depress this assay. Reference Range HDL <40 mg/dL Low HDL Cholesterol HDL >or= 60 mg/dL High HDL Cholesterol Performed By: #### L 501.9520, L502.0250, L500.4050, L500.4100 ####[facility] [address] [place], [address] Cholesterol in LDL [Mass/Vol] 96 mg/dL Normal 0-130 [facility] Comment on above: Performed By: #### L 501.9520, L502.0250, L500.4050, L500.4100 ####[facility] [address] [place], [address] Cholesterol in VLDL [Mass/Vol] 21 mg/dL Normal 5-40 [facility] Comment on above: Performed By: #### L 501.9520, L502.0250, L500.4050, L500.4100 ####[facility] [address] [place], [address] Triglyceride [Mass/Vol] 106 mg/dL Normal [facility] Comment on above: Result Comment: The drugs N-Acetylcysteine and Metamizole may falsely depress this assay. Serum Triglycerides Reference Interval Normal <150 mg/dL Borderline high 150 - 199 mg/dL High 200 - 499 mg/dL Very High > or = 500 mg/dL Performed By: #### L 501.9520, L502.0250, L500.4050, L500.4100 ####[facility] [address] [place], [address] Microalb:Creat Ratio,Random URon 05-06-2024 Creatinine [Mass/Vol] 34.60 mg/dL Normal NO RANGE EST. [facility] Comment on above: Performed By: #### L 501.9520, L502.0250, L500.4050, L500.4100 ####[facility] [address] [place], [address] MALB:CRE TNP Normal <30 mg/g CRE [facility] Comment on above: Performed By: #### L 501.9520, L502.0250, L500.4050, L500.4100 ####[facility] [address] [place], [address] MICROALBUMIN,UR < 5.0 Normal NO RANGE EST. [facility] Comment on above: Performed By: #### L 501.9520, L502.0250, L500.4050, L500.4100 ####[facility] [address] [place], [address] Thyroid Stim Hormone (TSH)on 05-06-2024 TSH 0.748 uIU/mL Normal 0.358-3.74 0 [facility] Comment on above: Performed By: #### L 501.9520, L502.0250, L500.4050, L500.4100 ####[facility] [address] [place], [address] Office Visit Reporton 2023 Office Visit Report [facility] [address] [place] [address] OFFICE VISIT Date of Service: 04/29/24 MR#: [id number] Acct: [id number] Patient: STEPHANE CABALLERO Rep #: [id number] : 1965 Provider: Dr. Kedar cardoza MD Age/Sex: 59/F Location: [facility] Status: Signed Intake Vital Signs 02/26/24 10:30 04/29/24 10:02 Height 5 ft 4 in 5 ft 4 in Weight: 147 lb 3 oz 151 lb BMI 25.2 25.9 BP 148/98 H 138/70 H Blood Pressure Location Lt brachial Lt brachial Position Sitting Sitting Respiration 17 17 Pulse 84 87 Pulse Source Monitor Monitor Temp 98.6 F 98.2 F Temp Source Temporal Temporal Pulse Oximetry (%) 99 98 Oxygen Delivery Method room air room air Intake Visit Reasons: B12 inject Chief Complaint: Allergies sulfamethoxazole (From Bactrim) Allergy (Verified 03/10/24 12:42) Fever and skin rash trimethoprim (From Bactrim) Allergy (Verified 03/10/24 12:42) Fever and skin rash diphenhydramine HCl (From Benadryl) Adverse Reaction (Verified 03/10/24 12:42) [facility] lorazepam (From Ativan) Adverse Reaction (Verified 03/10/24 12:42) [facility] prochlorperazine edisylate (From Compazine) Adverse Reaction (Verified 03/10/24 12:42) [facility] [place] prochlorperazine maleate (From Compazine) Adverse Reaction (Verified 03/10/24 12:42) climb out of my body promethazine HCl (From Phenergan) Adverse Reaction (Verified 03/10/24 12:42) [facility] [place] [facility] topiramate (From Topamax) Adverse Reaction (Verified 03/10/24 12:42) Other tramadol Adverse Reaction (Verified 03/10/24 12:42) [facility] Office Meds cyanocobalamin (vitamin B-12) 1,000 mcg/mL injection solution Performing Provider: Kedar Bunch MD Performing Location: [facility] Administered by: Chelita Mehta on 04/29/24 10:01 Dose Route Admin Location Dispensed Lot Number Expiration Date DEBRA Pal ufacturer 1,500 mcg IM left deltoid 1.5 mL [id number] 07/16/26 85199-329-40 DIANA TRIVEDI Comments: The patient presents for B12 injection for treatment of fatigue. She has fatigue. Her last B12 injection was of benefit for fatigue. The patient is awake and alert. B12 1500mcg IM was administered today. There were no complications Assessment and Plan Assessment and Plan (1) Fatigue: Status: Chronic Qualifiers: Fatigue type: chronic, unspecified Qualified Code(s): R53.82 - Chronic fatigue, unspecified Orders: Orders Vitamin B12 Today R53.82 - Chronic fatigue, unspecified 04/29/24 1649 Date [facility] Date (if applicable) CC: Normal [facility] Office Visit Reporton 2023 Office Visit Report [facility] [address] [place] [address] OFFICE VISIT Date of Service: 02/26/24 MR#: [id number] Acct: [id number] Patient: STEPHANE CABALLERO Rep #: [id number] : 1965 Provider: Dr. Kedar cardoza MD Age/Sex: 58/F Location: [facility] Status: Signed Intake Vital Signs 01/06/24 15:05 02/24/24 10:33 02/26/24 10:30 Height 5 ft 3.5 in 5 ft 4 in 5 ft 4 in Weight: 147 lb 3 oz BMI 25.2 BP 148/98 H Blood Pressure Location Lt brachial Position Sitting Respiration 17 Pulse 84 Pulse Source Monitor Temp 98.6 F Temp Source Temporal Pulse Oximetry (%) 99 Oxygen Delivery Method room air Intake Visit Reasons: B12 inject Chief Complaint: Allergies sulfamethoxazole (From Bactrim) Allergy (Verified 02/24/24 10:34) Fever and skin rash trimethoprim (From Bactrim) Allergy (Verified 02/24/24 10:34) Fever and skin rash diphenhydramine HCl (From Benadryl) Adverse Reaction (Verified 02/24/24 10:34) [facility] lorazepam (From Ativan) Adverse Reaction (Verified 02/24/24 10:34) [facility] prochlorperazine edisylate (From Compazine) Adverse Reaction (Verified 02/24/24 10:34) [facility] [place] [facility] prochlorperazine maleate (From Compazine) Adverse Reaction (Verified 02/24/24 10:34) climb out of my body promethazine HCl (From Phenergan) Adverse Reaction (Verified 02/24/24 10:34) [facility] [place] [facility] topiramate (From Topamax) Adverse Reaction (Verified 02/24/24 10:34) Other tramadol Adverse Reaction (Verified 02/24/24 10:34) [facility] Office Meds cyanocobalamin (vitamin B-12) 1,000 mcg/mL injection solution Performing Provider: Kedar Bunch MD Performing Location: [facility] Administered by: Chelita Mehta on 02/26/24 10:44 Dose Route Admin Location Dispensed Lot Number Expiration Date [facility] Man ufacturer 1,500 mcg IM left deltoid 1.5 mL [id number] 04/15/26 63804-145-42 DIANA TRIVEDI Comments: Patient presents for B12 injection for treatment of fatigue. Patient states that the last B12 injection was of benefit for her fatigue. B12 1,500mcg IM was given today. The patient tolerated the procedure well. Assessment and Plan Assessment and Plan (1) Fatigue: Status: Chronic Qualifiers: Fatigue type: chronic, unspecified Qualified Code(s): R53.82 - Chronic fatigue, unspecified Orders: Orders Vitamin B12 Today R53.82 - Chronic fatigue, unspecified 02/26/24 1246 Date [facility]: Date (if applicable) CC: Normal [facility] Bedside Glucoseon 02-24-2024 F[place]ICK GLU 138 mg/dL High 74-106 [facility] Comment on above: Result Comment: CHRIS CERRATO OF PATIENT CARE PER NURSING PROTOCOL Performed By: #### L 501.080 #### [facility] [address] [facility] [place], [address] Emergency Department Summary on 02-24-2024 Emergency Department Summary [facility] Medical Records Department [address] [place] [address] Emergency Department Summary 02/24/24 MR#: [id number] Acct: [id number] Name: STEPHANE CABALLERO Rep #: [id number] : 1965 58 From: Franklin Escamilla DO PCP: Dr. Geeta Odell MD Status:DEP ER Location: ED HPI History of Present Illness Chief Complaint: Meds Only Detail of Chief Complaint: Left facial pain needs infusion of phenytoin Informant: patient and PCP Narrative Narrative: Patient sent to the emergency department by her neurologist to receive an infusion of phenytoin. Patient states that she has been having facial pain for about a year and has been diagnosed with trigeminal neuralgia. Patient over the last 4 days has been having increased pain. Infusion center was full therefore patient was sent to the ED to have a dose of 1000 mg of phenytoin given IV. Patient denies any facial injuries. She denies any fevers or recent illness. She does have history of liver transplant related to JEWELL. She has been doing well. Patient states that she has had multiple dental visits because initially she thought the pain may be related to her teeth and she has had a root canal and no treatments have helped her pain [facility] Medical History (Updated 02/24/24 @ 10:[address] Franklin Escamilla DO) Osteoporosis Pneumonia Acute hyponatremia Nausea vomiting Acute abdominal pain in right flank Major depressive disorder PTSD (post-traumatic stress disorder) Fatigue Gastric ulcer Seasonal allergies Neuropathy Cirrhosis Serum ammonia increased Wears contact lenses Wears glasses Cancer Alcohol use Bladder disease Arthritis DVT (deep venous thrombosis) Restless legs Back pain Migraine headache TIA (transient ischemic attack) Blackout Seizures Dietary restriction History of ulceration History of IBS Gastric reflux Non-smoker Shortness of breath on exertion Leg cramps History of pain when walking History of stress test History of echocardiogram COVID Immunocompromised state due to drug therapy CVA (cerebral vascular accident) DVT (deep venous thrombosis) Epilepsy Diabetes Clostridium difficile colitis Anxiety Esophageal varices Hiatal hernia Asthma Migraine JEWELL (nonalcoholic steatohepatitis) Home Medications ???Medication ???Instructions ???Recorded ???Last Taken ???Type albuterol sulfate 90 mcg/actuation 1 - 2 puff inhalation Q4H PRN PRN 02/08/18 12/07/22 History aerosol inhaler breathing zolpidem 10 mg tablet (Ambien) 10 mg PO QHS sleep 02/17/20 04/07/23 History metformin 500 mg tablet 500 mg PO DAILY diabetes 09/12/20 04/07/23 History hydroxyzine HCl 25 mg tablet 25 mg PO Q4H PRN PRN Anxiety 03/12/21 12/07/22 History citalopram 40 mg tablet 40 mg PO DAILY 30 days #30 tabs 11/19/22 04/07/23 Rx mirabegron 50 mg tablet,extended 50 mg PO DAILY . 12/09/22 04/07/23 History release 24 hr (Myrbetriq) amoxicillin 500 mg capsule 500 mg PO Q8H 04/04/23 Unknown History tacrolimus 1 mg capsule, 2 mg (2 x 1 mg) PO Q12H 30 days 05/15/23 Unknown Rx immediate-release #120 caps pantoprazole 40 mg tablet,delayed 40 mg PO DAILY 90 days #90 tabs 08/14/23 Unknown Rx release (Protonix) entecavir 0.5 mg tablet 0.5 mg PO DAILY hepatitis B 30 11/18/23 Unknown Rx days #30 tabs mycophenolate mofetil 250 mg 250 mg PO BID antirejection 30 11/18/23 Unknown Rx capsule (CellCept) days #60 caps naratriptan 2.5 mg tablet 2.5 mg .Route .COMPLEX #9 tabs 01/07/24 Unknown Rx ropinirole 1 mg tablet 1 mg PO QHS PRN RLS #30 tabs 01/07/24 Unknown Rx carbamazepine 100 mg chewable 100 mg PO TID #90 tabs 01/15/24 Unknown Rx tablet alprazolam 0.5 mg tablet See Rx Instructions .Route 01/20/24 Unknown Rx .COMPLEX #1 TAB phenytoin sodium extended 100 mg 100 mg PO TID #90 caps 02/19/24 Unknown Rx capsule Phenytoin 1,000 mg IV ONCE #1,000 mg 02/24/24 Unknown Rx Allergy/AdvReac Type Severity Reaction Status Date / Time sulfamethoxazole (From Allergy Fever and Verified 02/24/24 10:34 Bactrim) skin rash trimethoprim (From Bactrim) Allergy Fever and Verified 02/24/24 10:34 skin rash diphenhydramine HCl (From AdvReac "climb the Verified 02/24/24 10:34 Benadryl) rose" lorazepam (From Ativan) AdvReac "Climb the Verified 02/24/24 10:34 rose" prochlorperazine edisylate AdvReac "climb the Verified 02/24/24 10:34 (From Compazine) rose" prochlorperazine maleate AdvReac "climb out Verified 02/24/24 10:34 (From Compazine) of my body" promethazine HCl (From AdvReac "climb the Verified 02/24/24 10:34 Phenergan) rose" topiramate (From Topamax) AdvReac Other Verified 02/24/24 10:34 tramadol AdvReac "climb the Verified 02/24/24 10:34 rose" Family History Mother He (more content not included)... Normal [facility] Neurology Visit Reporton Neurology Visit Report [facility] [address], [address] [place], [place] [id number] OFFICE VISIT Date of Service: 02/24/24 MR#: [id number] Acct: [id number] Name: STEPHANE CABALLERO Rep #: [id number] : 1965 Provider: Dr. Kedar cardoza MD Age/Sex: 58/F Location: [facility] Status: Signed with Addenda ADDENDUM by Dr. Kedar Bunch MD on 03/29/24 at 1551 Addendum Addendum (03/29/2024): Change CPT code for intramuscular injection [place] 02/[place] [address]. 03/29/24 1551 Date Kedar Bunch MD cc: * Signed ADDENDUM by Dr. Kedar Bunch MD on 03/09/24 at 1529 Addendum Addendum (03/09/2024): The patient will be referred to the neurosurgery department at [facility] in [place] for evaluation of her left trigeminal neuralgia. 03/09/24 1529 Date Kedar Bunch MD cc: * Signed ADDENDUM by Dr. Kedar Bunch MD on 03/08/24 at 1624 Addendum Addendum (03/08/2024): The patient is continuing to experience trigeminal neuralgia pain. Due to a side effect of sedation she has not been able to take phenytoin 100 mg more than twice per day. Phenytoin 100 mg twice per day will be continued. I will have her begin oxcarbazepine 150 mg twice daily. For the present time I will have her continue carbamazepine 100 mg 3 times daily. 03/08/24 1624 Date Kedar Bunch MD cc: * Signed HPI HPI Chief Complaint: Details: Interim history: Stephane returns for follow-up. She has a history of fibromyalgia, thrombocytopenia, osteoporosis (she has been treated with Prolia), COVID-19 infection (02/2021 and 05/2022), right rotator cuff surgery (2014), concussion s/p fall (2013), diabetes mellitus, asthma, liver transplant (2019 for cirrhosis/JEWELL; on immunosuppressive therapy), esophageal ulcers (s/p band ligation in 2016), abdominal wall hernias (s/p repair 2019), depression, anxiety, PTSD, migraine headaches, pseudoseizures and epileptic seizures. She began having seizures in 2007. She has had generalized seizures, complex partial seizures and nocturnal seizures. She sometimes has a preceding aura characterized by an acidic taste, dry mouth, and a "feeling of ." Emotional stress may trigger her episodes. Her seizures have been generally well-controlled on her current therapy of carbamazepine. She had an epileptic seizure in January 2020 (manifested with a fall, loss of contact with her surroundings and tongue biting). Her last seizure prior to that was in 2018. Between July 2020 and January 2021, she had a nocturnal seizure with associated tongue biting and urinary incontinence. On 03/12/2021, she presented to the ER with a COVID-19 infection and associated intractable nausea and vomiting (she had vomiting up her medications). Later on 03/12/2021, she had an epileptic seizure; she was treated with lorazepam and IV levetiracetam due to inability to take medications orally. She had no subsequent seizures during her hospitalization, and she was discharged on her previous regimen of carbamazepine. She has had no further seizures since 03/12/2021. On her own, she discontinued carbamazepine earlier in 2023 however carbamazepine was resumed earlier in 2023 after the patient developed left trigeminal neuralgia. Following her COVID-19 infection in 2020, she has had "brain fog" with symptoms including difficulty remembering information; this improved. She was hospitalized in November 2022 for community-acquired pneumonia. She had associated nausea, vomiting, a feeling of weakness in the legs and marked fatigue. Laboratory studies in November 2022 revealed hyponatremia (124 on 12/09/2022), mild hypokalemia and mild anemia. She was treated with an antibiotic. She has chronic neck and back pain. She sustained a lumbar compression fracture with her initial seizures in 2007, and had spinal surgery in 2008. She reported having acute L1 and L2 compression fractures following a generalized seizure in September 2013 (official report of imaging studies are not available). She had previously seen pain management (Dr. Greer) and a lumbar injection in 2015 was of benefit. In January 2021, she had an exacerbation of her neck pain, back pain and bilateral lower extremity radicular pain (she had tripped and had a fall at that time). When her pain is severe she feels her legs are weak. She saw a chiropractor in 2020. She previously took [place] and zonisamide. Valium was previously of benefit for her back pain. Diclofenac, ibuprofen, cyclobenzaprine, meloxicam and baclofen were not of benefit. In the past, flurbiprofen was of benefit. Further NSAIDs will not be prescribed due to her dyspepsia and history of esophageal ulcers. A right mid lateral lumbar paraspinal muscle trigger point injection admin (more content not included)... Normal [facility] Gastroenterology Visit Repor ton 02-13-2024 Gastroenterology Visit Report [facility] [address] [place] [address] OFFICE VISIT Date of Service: 02/13/24 MR#: [id number] Acct: [id number] Name: STEPHANE CABALLERO Rep #: [id number] : 1965 Provider: Raoul June DO Age/Sex: 58/F [place] [facility] [place]: Signed Intake Vital Signs 07/15/23 15:38 01/26/24 10:22 Height 5 ft 3.5 in 5 ft 3.5 in Intake Visit Reasons: 6 M FU Chief Complaint: Allergies sulfamethoxazole (From Bactrim) Allergy (Verified 01/06/24 15:10) Fever and skin rash trimethoprim (From Bactrim) Allergy (Verified 01/06/24 15:10) Fever and skin rash diphenhydramine HCl (From Benadryl) Adverse Reaction (Verified 01/06/24 15:10) climb the rose lorazepam (From Ativan) Adverse Reaction (Verified 01/06/24 15:10) Climb the rose prochlorperazine edisylate (From Compazine) Adverse Reaction (Verified 01/06/24 15:10) climb the rose prochlorperazine maleate (From Compazine) Adverse Reaction (Verified 01/06/24 15:10) climb out of my body promethazine HCl (From Phenergan) Adverse Reaction (Verified 01/06/24 15:10) climb the rose topiramate (From Topamax) Adverse Reaction (Verified 01/06/24 15:10) Other tramadol Adverse Reaction (Verified 01/06/24 15:10) climb the rose Medications ???Medication ???Instructions ???Recorded ???Confirmed ???Type albuterol sulfate 90 mcg/actuation 1 - 2 puff inhalation Q4H PRN PRN 02/08/18 02/13/24 History aerosol inhaler breathing zolpidem 10 mg tablet (Ambien) 10 mg PO QHS sleep 02/17/20 02/13/24 History metformin 500 mg tablet 500 mg PO DAILY diabetes 09/12/20 02/13/24 History hydroxyzine HCl 25 mg tablet 25 mg PO Q4H PRN PRN Anxiety 03/12/21 02/13/24 History citalopram 40 mg tablet 40 mg PO DAILY 30 days #30 tabs 11/19/22 02/13/24 Rx mirabegron 50 mg tablet,extended 50 mg PO DAILY . 12/09/22 02/13/24 History release 24 hr (Myrbetriq) amoxicillin 500 mg capsule 500 mg PO Q8H 04/04/23 02/13/24 History tacrolimus 1 mg capsule, 2 mg (2 x 1 mg) PO Q12H 30 days 05/15/23 02/13/24 Rx immediate-release #120 caps pantoprazole 40 mg tablet,delayed 40 mg PO DAILY 90 days #90 tabs 08/14/23 02/13/24 Rx release (Protonix) entecavir 0.5 mg tablet 0.5 mg PO DAILY hepatitis B 11/18/23 02/13/24 Rx days #30 tabs mycophenolate mofetil 250 mg 250 mg PO BID antirejection 11/18/23 02/13/24 Rx capsule (CellCept) days #60 caps naratriptan 2.5 mg tablet 2.5 mg .Route .COMPLEX #9 tabs 01/07/24 02/13/24 Rx ropinirole 1 mg tablet 1 mg PO QHS PRN RLS #30 tabs 01/07/24 02/13/24 Rx carbamazepine 100 mg chewable 100 mg PO TID #90 tabs 01/15/24 02/13/24 Rx tablet alprazolam 0.5 mg tablet See Rx Instructions .Route 01/20/24 02/13/24 Rx .COMPLEX #1 TAB PFSH Medical History (Updated 01/06/24 @ 16:[address] Kedar Bunch MD) Osteoporosis Pneumonia Acute hyponatremia Nausea vomiting Acute abdominal pain in right flank Major depressive disorder PTSD (post-traumatic stress disorder) Fatigue Gastric ulcer Seasonal allergies Neuropathy Cirrhosis Serum ammonia increased Wears contact lenses Wears glasses Cancer Alcohol use Bladder disease Arthritis DVT (deep venous thrombosis) Restless legs Back pain Migraine headache TIA (transient ischemic attack) Blackout Seizures Dietary restriction History of ulceration History of IBS Gastric reflux Non-smoker Shortness of breath on exertion Leg cramps History of pain when walking History of stress test History of echocardiogram COVID Immunocompromised state due to drug therapy CVA (cerebral vascular accident) DVT (deep venous thrombosis) Epilepsy Diabetes Clostridium difficile colitis Anxiety Esophageal varices Hiatal hernia Asthma Migraine JEWELL (nonalcoholic steatohepatitis) Surgical History History of transplantation, liver Hx of esophagogastroduodenoscopy Hx of colonoscopy History of lumbar spinal fusion Hx of ventral hernia repair Hx of right knee surgery Hx of left knee surgery Hx of hysterectomy Hx of dilation and curettage Hx of hemorrhoidectomy Hx of tubal ligation Hx of breast reduction, elective Hx of repair of right rotator cuff Hx of cholecystectomy H/O liver transplant Liver transplant recipient Family History Mother Heart disease COPD (chronic obstructive pulmonary disease) Father Chronic alcoholism Social History Smoking Status: Never smoker second hand exposure: No alcohol intake: former substance use type: does not use what type of physical activity do you participate in: walking HPI HPI Chief Complaint: Details: STEPHANE CABALLERO, is a 58 F wh (more content not included)... Normal [facility] Brain W/WO Contraston 2023 Brain W/WO Contrast [facility] [address] [place] [address] Brain W/WO Contrast MR#: [id number] Acct: [id number] Name: STEPHANE CABALLERO Rep #: [id number] : 1965 F 58 From: Jayson Gonzalez MD PCP: Dr. Geeta Odell MD Status: REG CLI Study: Brain W/WO Contrast Date of Exam: 01/27/24 Exam# [id number] Ordering Dr: Kedar Bunch MD [id number] STUDY: MRI BRAIN WITH AND WITHOUT CONTRAST REASON FOR EXAM: Female, 58 years old. left trigeminal neuralgia TECHNIQUE: Standardized multiplanar fat and water weighted pulse sequences were obtained. IV 12ml clariscan was administered for the contrast portion of the examination. COMPARISON: October 09, 2012 FINDINGS: Normal size of the ventricles and extra-axial spaces for the patient''s age. Normal white matter tracts of the supratentorial brain. Normal bilateral basal ganglia. Normal thalami. There is no extra-axial fluid accumulation. Normal flow voids within the major intracranial circulation suggesting patency by spin echo criteria. Normal venous enhancement. There is no enhancing intra-axial or extra-axial abnormality. Normal sella turcica, pituitary gland, infundibular stalk, optic chiasm and hypothalamus. Normal tectal plate and pineal gland. Normal midbrain, loc and medulla. Normal cerebellum. Normal basal cisterns. Normal bilateral temporal bones. Normal bilateral internal auditory canals. No demonstrated orbital abnormality, within the constraints of a routine brain study. Normal visualized paranasal sinuses. Normal calvarium and skull base. Normal visualized soft tissue structures. Normal visualized upper cervical spine. No significant change since prior exam MRI/Brain W/WO Contrast IMPRESSION: Normal unenhanced and enhanced MRI of the brain. Electronically Signed: Jayson Gonzalez MD at 18:39 EDT , CC: Dr. Geeta Odell MD; Dr. Kedar Bunch MD Administrative Court Justice: Signed Normal [facility] Office Visit Reporton 2023 Office Visit Report [facility] [place] [address] OFFICE VISIT Date of Service: 01/26/24 MR#: [id number] Acct: [id number] Patient: STEPHANE CABALLERO Rep #: [id number] : 1965 Provider: Dr. Kedar cardoza MD Age/Sex: 58/F [place] [facility] [place]: Signed Intake Vital Signs 01/06/24 15:05 01/26/24 10:22 Height 5 ft 3.5 in 5 ft 3.5 in Weight: 144 lb 6 oz 151 lb 6 oz BMI 25.2 26.4 BP 140/92 H 130/94 H Blood Pressure Location Lt brachial Lt brachial Position Sitting Sitting Respiration 15 17 Pulse 99 85 Pulse Source Monitor Monitor Temp 98.2 F 98.6 F Temp Source Temporal Temporal Pulse Oximetry (%) 98 98 Oxygen Delivery Method room air room air Intake Visit Reasons: B12 inject Chief Complaint: Allergies sulfamethoxazole (From Bactrim) Allergy (Verified 01/06/24 15:10) Fever and skin rash trimethoprim (From Bactrim) Allergy (Verified 01/06/24 15:10) Fever and skin rash diphenhydramine HCl (From Benadryl) Adverse Reaction (Verified 01/06/24 15:10) climb the rose lorazepam (From Ativan) Adverse Reaction (Verified 01/06/24 15:10) Climb [place] rose prochlorperazine edisylate (From Compazine) Adverse Reaction (Verified 01/06/24 15:10) climb the rose prochlorperazine maleate (From Compazine) Adverse Reaction (Verified 01/06/24 15:10) climb out of my body promethazine HCl (From Phenergan) Adverse Reaction (Verified 01/06/24 15:10) climb the rose topiramate (From Topamax) Adverse Reaction (Verified 01/06/24 15:10) Other tramadol Adverse Reaction (Verified 01/06/24 15:10) climb the rose Office Meds cyanocobalamin (vitamin B-12) 1,000 mcg/mL injection solution Performing Provider: Kedar Bunch MD Performing Location: [facility] Administered by: Chelita Mehta on 01/26/24 10:34 Dose Route Admin Location Dispensed Lot Number Expiration Date [place] Man ufacturer 1,500 mcg IM left deltoid 1.5 mL [id number] 04/15/26 42936-312-26 [employer]IV[employer] Comments: The patient presents for B12 injection for the treatment of fatigue. She has fatigue. Her last B12 injection was of benefit for fatigue. The patient is awake and alert. B12 1500mcg IM was administered today. There were no complications. Assessment and Plan Assessment and Plan (1) Fatigue: Status: Chronic Qualifiers: Fatigue type: chronic, unspecified Qualified Code(s): R53.82 - Chronic fatigue, unspecified Orders: Orders Vitamin B12 Today R53.82 - Chronic fatigue, unspecified 01/26/24 1104 Date Kedar Bunch MD [facility] Signature: Date (if applicable) CC: Normal [facility] CBC-Complete Blood Cnt No Di ffon 01-14-2024 Erythrocyte distribution width (RBC) [Ratio] 13.6 % Normal 11.6-14.6 [facility] Comment on above: Performed By: #### L 100.0500, L500.4050, L501.7900 #### [facility] [address] [place], [place], [id number] Hematocrit (Bld) [Volume fraction] 38.7 % Normal 37-47 [facility] Comment on above: Performed By: #### L 100.0500, L500.4050, L501.7900 #### [facility] [address] [place], [address] Hemoglobin (Bld) [Mass/Vol] 13.1 g/dL Normal 12.0-15.0 [facility] Comment on above: Performed By: #### L 100.0500, L500.4050, L501.7900 #### [facility] [address] [place], [address] MCH (RBC) [Entitic mass] 27.2 pg Normal 27.0-32.0 [facility] Comment on above: Performed By: #### L 100.0500, L500.4050, L501.7900 #### [facility] [address] [place], [address] MCHC (RBC) [Mass/Vol] 33.9 g/dL Normal 32-36 [facility] Comment on above: Performed By: #### L 100.0500, L500.4050, L501.7900 #### [facility] [address] [place], [address] MCV (RBC) [Entitic vol] 80.3 fL Low 81-99 [facility] Comment on above: Performed By: #### L 100.0500, L500.4050, L501.7900 #### [facility] [address] [place], [address] Platelet mean volume (Bld) [Entitic vol] 9.9 fL Normal 6.2-12.0 [facility] Comment on above: Performed By: #### L 100.0500, L500.4050, L501.7900 #### [facility] [address] [place], [address] Platelets (Bld) [#/Vol] 127 10*3/uL Low 150-450 [facility] Comment on above: Performed By: #### L 100.0500, L500.4050, L501.7900 #### [facility] [address] [place], [address] RBC (Bld) [#/Vol] 4.82 10*6/uL Normal 4.2-5.4 [facility] Comment on above: Performed By: #### L 100.0500, L500.4050, L501.7900 #### [facility] [address] [place], [address] RDW SD 39.0 fl Normal 35.1-43.9 [facility] Comment on above: Performed By: #### L 100.0500, L500.4050, L501.7900 #### [facility] [address] [place], [address] WBC (Bld) [#/Vol] 5.9 10*3/uL Normal 4.4-11.0 [facility] Comment on above: Performed By: #### L 100.0500, L500.4050, L501.7900 #### [facility] [address] [place], [address] Carbamazepine (Tegretol)on 0 01-14-2024 CARBAMAZEPINE 8.5 ug/mL Normal 4.0-12.0 [facility] Comment on above: Performed By: #### L 100.0500, L500.4050, L501.7900 #### [facility] [address] [place], [address] Comprehensive Metabolic Prof ilon 01-14-2024 Albumin [Mass/Vol] 3.4 g/dL Normal 3.2-5.0 [facility] Comment on above: Performed By: #### L 100.0500, L500.4050, L501.7900 #### [facility] [address] [place], [address] Albumin/Globulin [Mass ratio] 0.9 {ratio} Normal 0.9-2.4 [facility] Comment on above: Performed By: #### L 100.0500, L500.4050, L501.7900 #### [facility] [address] [place], [address] ALK P 111 U/L Normal 45-117 [facility] Comment on above: Performed By: #### L 100.0500, L500.4050, L501.7900 #### [facility] [address] [place], [address] ALT [Catalytic activity/Vol] 24 U/L Normal 13-56 [facility] Comment on above: Performed By: #### L 100.0500, L500.4050, L501.7900 #### [facility] [address] [place], [address] AST [Catalytic activity/Vol] 24 U/L Normal 15-37 [facility] Comment on above: Performed By: #### L 100.0500, L500.4050, L501.7900 #### [facility] [address] [place], [address] Bilirubin [Mass/Vol] 0.40 mg/dL Normal 0.20-1.00 [facility] [place] Comment on above: Result Comment: For patients on eltrombopag therapy, use of Dimension [place] TBIL is not recommended. Performed By: #### L 100.0500, L500.4050, L501.7900 #### [facility] [address] [place], [address] BUN/CRE 14.6 RATIO Normal 10-20 [facility] Comment on above: Performed By: #### L 100.0500, L500.4050, L501.7900 #### [facility] [address] [place], [address] CA,Total 8.9 mg/dL Normal 8.5-10.1 [facility] Comment on above: Performed By: #### L 100.0500, L500.4050, L501.7900 #### [facility] [address] [place], [address] Chloride [Moles/Vol] 106 mmol/L Normal 98-107 [facility] Comment on above: Performed By: #### L 100.0500, L500.4050, L501.7900 #### [facility] [address] [place], [address] CO2 [Moles/Vol] 27.0 mmol/L Normal 21.0-32.0 [facility] Comment on above: Performed By: #### L 100.0500, L500.4050, L501.7900 #### [facility] [address] [place], [address] Creatinine [Mass/Vol] 0.68 mg/dL Normal 0.55-1.02 [facility] Comment on above: Result Comment: The validity of the calculated GFR GFRAA in patients over 70 years has not been determined. Clinical correlation is essential. Performed By: #### L 100.0500, L500.4050, L501.7900 #### [facility] [address] [place], [address] EST GFR - AA 114 mL/min Normal >60 [facility] Comment on above: Result Comment: Afri can [place] GFR Calc Performed By: #### L 100.0500, L500.4050, L501.7900 #### [facility] [address] [place], [address] GAP 6 Normal 5-15 [facility] Comment on above: Performed By: #### L 100.0500, L500.4050, L501.7900 #### [facility] [address] [place], [address] GFR/1.73 sq M.predicted among non-blacks MDRD (S/P/Bld) [Vol rate/Area] 94 mL/min/{1.73_m2} Normal >60 [facility] Comment on above: Result Comment: Non- GFR Calc Performed By: #### L 100.0500, L500.4050, L501.7900 #### [facility] [address] [place], [address] Globulin (S) [Mass/Vol] 3.7 g/dL Normal 2.2-4.2 [facility] Comment on above: Performed By: #### L 100.0500, L500.4050, L501.7900 #### [facility] [address] [place], [address] Glucose [Mass/Vol] 117 mg/dL High 74-106 [facility] Comment on above: Result Comment: Fast ing Glucose result from 100 to 125 mg/dL suggests IMPAIRED HOMEOSTASIS per A.D.A. criteria. Performed By: #### L 100.0500, L500.4050, L501.7900 #### [facility] [address] [place], [address] Potassium [Moles/Vol] 4.1 mmol/L Normal 3.5-5.1 [facility] Comment on above: Performed By: #### L 100.0500, L500.4050, L501.7900 #### [facility] [address] [place], [address] Sodium [Moles/Vol] 139 mmol/L Normal 136-145 [facility] Comment on above: Performed By: #### L 100.0500, L500.4050, L501.7900 #### [facility] [address] [place], [address] T PROT 7.1 g/dL Normal 6.4-8.2 [facility] Comment on above: Performed By: #### L 100.0500, L500.4050, L501.7900 #### [facility] [address] [place], [address] Urea nitrogen [Mass/Vol] 10 mg/dL Normal 7-18 [facility] Comment on above: Performed By: #### L 100.0500, L500.4050, L501.7900 #### [facility] [address] [place], [address] Neurology Visit Reporton Neurology Visit [facility] [address] [place] [address], [address] [place] [address] OFFICE VISIT Date of Service: 01/06/24 MR#: [id number] Acct: [id number] Name: STEPHANE CABALLERO Rep #: [id number] : [id number] Provider: Dr. Kedar cardoza MD Age/Sex: 58/F Location: [facility].BN Status: Signed with Addenda ADDENDUM by Dr. Kedar Bunch MD on 02/19/24 at 0913 Addendum Addendum (02/19/2024): The patient is continuing to experience left trigeminal neuralgia pain. She is taking carbamazepine 100 mg 3 times daily and this appears to have lost efficacy. I will have her begin phenytoin 100 mg 3 times daily. I spoke with the patient by phone yesterday and recommended that she take an additional 2 tablets of carbamazepine 100 mg 1 time, and also for the present time I will have her continue her regular scheduled dose of carbamazepine 100 mg 3 times daily. 02/19/24912 Date Kedar Bunch MD cc: * Signed ADDENDUM by Dr. Kedar Bunch MD on 02/13/24 at 1835 Addendum Addendum (02/13/2024): Head MRI (01/27/2024): FINDINGS: Normal size of the ventricles and extra-axial spaces for the patient''s age. Normal white matter tracts of the supratentorial brain. Normal bilateral basal ganglia. Normal thalami. There is no extra-axial fluid accumulation. Normal flow voids within the major intracranial circulation suggesting patency by spin echo criteria. Normal venous enhancement. There is no enhancing intra-axial or extra-axial abnormality. Normal sella turcica, pituitary gland, infundibular stalk, optic chiasm and hypothalamus. Normal tectal plate and pineal gland. Normal midbrain, loc and medulla. Normal cerebellum. Normal basal cisterns. Normal bilateral temporal bones. Normal bilateral internal auditory canals. No demonstrated orbital abnormality, within the constraints of a routine brain study. Normal visualized paranasal sinuses. Normal calvarium and skull base. Normal visualized soft tissue structures. Normal visualized upper cervical spine. No significant change since prior exam IMPRESSION: Normal unenhanced and enhanced MRI of the brain. These images were reviewed on 02/13/2024. 02/13/24 1835 Date Kedar Bunch MD cc: * Signed ADDENDUM by Dr. Kedar Bunch MD on 01/15/24 at 1639 Addendum Addendum (01/14/2024): CBC, CMP (01/14/2024): Platelets 127 (low), glucose 117 (high) Carbamazepine level (01/14/2024): 8.5 (in therapeutic range) The patient has reported continued left trigeminal neuralgia pain. Carbamazepine will be increased to 100 mg 3 times daily for her neuropathic pain. 01/15/24 1639 Date Kedar Bunch MD cc: * Signed HPI [facility] Chief Complaint: Details: Interim history: Stephane returns for follow-up. She has a history of fibromyalgia, thrombocytopenia, osteoporosis (she has been treated with Prolia), COVID-19 infection (02/2021 and 05/2022), right rotator cuff surgery (2014), concussion s/p fall (2013), diabetes mellitus, asthma, liver transplant (2018 for cirrhosis/JEWELL; on immunosuppressive therapy), esophageal ulcers (s/p band ligation in 2016), abdominal wall hernias (s/p repair 2019), depression, anxiety, PTSD, migraine headaches, pseudoseizures and epileptic seizures. She began having seizures in 2007. She has had generalized seizures, complex partial seizures and nocturnal seizures. She sometimes has a preceding aura characterized by an acidic taste, dry mouth, and a "feeling of ." Emotional stress may trigger her episodes. Her seizures have been generally well-controlled on her current therapy of carbamazepine 100 mg twice daily (a higher dose caused elevated carbamazepine level). She had an epileptic seizure in January 2020 (manifested with a fall, loss of contact with her surroundings and tongue biting). Her last seizure prior to that was in 2018. Between July 2020 and January 2021, she had a nocturnal seizure with associated tongue biting and urinary incontinence. On 03/12/2021, she presented to the ER with a COVID-19 infection and associated intractable nausea and vomiting (she had vomiting up her medications). Later on 03/12/2021, she had an epileptic seizure; she was treated with lorazepam and IV levetiracetam due to inability to take medications orally. She had no subsequent seizures during her hospitalization, and she was discharged on her previous regimen of carbamazepine. She has had no further seizures since 03/12/2021. On her own, she discontinued carbamazepine earlier in 2023. Following her COVID-19 infection in 2020, she has had "brain fog" with symptoms including difficulty remembering information; this improved. She was hospitalized in November 2022 for community-acquired pneumonia. Sh (more content not included)... Normal [facility] Basophil percentageOrdered B y: Dr. Odell on 06-19-2022 Chloride [Moles/Vol] 105 mmol/L 98-107 [facility] Glucose [Mass/Vol] 218 mg/dL 74-106 [facility] Comment on above: Glucose result great er than or equal to 200 mg/dLsuggests DIABETES MELLITUS per A.D.A. criteria. Potassium [Moles/Vol] 3.7 mmol/L 3.5-5.1 [facility] Sodium [Moles/Vol] 137 mmol/L 136-145 [facility] - Chemistry and C hemistry - challengeOrdered By: Dr. Odell on 06-19-2022 CO2 [Moles/Vol] 28.0 mmol/L 21.0-32.0 [facility] Urea nitrogen/Creatinine [Mass ratio] 10.1 mg/mg 10-20 [facility] No Panel InformationOrdered By: Dr. Odell on 06-19-2022 Estimated GFR (MDRD) Amer 97 mL/min >60 [facility] Comment on above: GFR Calc Estimated GFR (MDRD) Non-Af Amer 80 mL/min >60 [facility] Comment on above: Non- GFR Calc Serum or plasma calcium myla urement (mass/volume)Ordered By: Dr. Odell on 06-19-2022 Calcium [Mass/Vol] 8.8 mg/dL 8.5-10.1 [facility] Serum or plasma creatinine m easurement (mass/volume)Ordered By: Dr. Odell on 06-19-2022 Creatinine [Mass/Vol] 0.79 mg/dL 0.55-1.02 [facility] Comment on above: The validity of the calculated GFR & GFRAA in patients over 70 years has not been determined. Clinical correlation is essential. Serum or plasma urea nitroge n measurement (mass/volume)Ordered By: Dr. Odell on 06-19-2022 Urea nitrogen [Mass/Vol] 8 mg/dL 7-18 [facility] Thin prep Papanicolaou smear with manual screeningOrdered By: Dr. Odell on 06-19-2022 Thin prep Papanicolaou smear with manual screening 4 5-15 [facility] Absolute lymphocyte counton 06-11-2022 Lymphocytes Auto (Unsp spec) [#/Vol] 2.12 10*3/uL 0.83-4.51 [facility] Basophil percentageon 2021 Basophil percentage 3.2 mg/dL 2.5-4.9 [facility] Basophils/100 WBC (Bld) 0.4 % 0-1 [facility] Bilirubin [Mass/Vol] 0.50 mg/dL 0.20-1.00 [facility] Comment on above: For patients on eltr ombopag therapy, use of Dimension [place] TBIL is not recommended. Chloride [Moles/Vol] 101 mmol/L 98-107 [facility] Eosinophils/100 WBC (Bld) 1.4 % 0-5 [facility] Glucose [Mass/Vol] 270 mg/dL 74-106 [facility] Comment on above: Glucose result great er than or equal to 200 mg/dLsuggests DIABETES MELLITUS per A.D.A. criteria. Neutrophils (Bld) [#/Vol] 5.6 10*3/uL 2.0-7.7 [facility] Neutrophils/100 WBC (Bld) 65.6 % 47-70 [facility] Potassium [Moles/Vol] 3.8 mmol/L 3.5-5.1 [facility] Protein [Mass/Vol] 7.6 g/dL 6.4-8.2 [facility] Sodium [Moles/Vol] 135 mmol/L 136-145 [facility] WBC (Bld) [#/Vol] 8.6 10*3/uL 4.4-11.0 [facility] Blood erythrocytes count (nu mber/volume)on 06-11-2022 RBC (Bld) [#/Vol] 5.28 10*6/uL 4.2-5.4 [facility] Blood hemoglobin measurement (mass/volume)on 06-11-2022 Hemoglobin (Bld) [Mass/Vol] 13.7 g/dL 12.0-15.0 [facility] Blood lymphocytes/100 leukoc yteson 06-11-2022 Lymphocytes/100 WBC (Bld) 24.8 % 19-41 [facility] Blood monocytes/100 leukocyt eson 06-11-2022 Monocytes/100 WBC (Bld) 7.4 % 0-10 [facility] Blood platelet mean volumeon 06-11-2022 Platelet mean volume (Bld) [Entitic vol] 9.5 fL 6.2-12.0 [facility] Determination of erythrocyte mean corpuscular volume (MCV)on 06-11-2022 MCV (RBC) [Entitic vol] 77.5 fL 81-99 [facility] Direct bilirubinon Bilirubin.direct [Mass/Vol] 0.15 mg/dL 0.00-0.30 [facility] Hematocrit Auto (Bld) [Volum e fraction]on 06-11-2022 Hematocrit (Bld) [Volume fraction] 40.9 % 37-47 [facility] - Chemistry and C hemistry - challengeon 06-11-2022 ALP [Catalytic activity/Vol] 127 U/L 45-117 [facility] ALT [Catalytic activity/Vol] 15 U/L 13-56 [facility] CO2 [Moles/Vol] 28.0 mmol/L 21.0-32.0 [facility] Globulin (S) [Mass/Vol] 4.0 g/dL 2.2-4.2 [facility] Urea nitrogen/Creatinine [Mass ratio] 8.4 mg/mg 10-20 [facility] - Hematology and Cell countson 06-11-2022 Erythrocyte distribution width (RBC) [Entitic vol] 37.9 fL 35.1-43.9 [facility] Erythrocyte distribution width (RBC) [Ratio] 13.6 % 11.6-14.6 [facility] Immature granulocytes/100 WBC (Bld) 0.400 % 0.0-0.9 [facility] Comment on above: IG% - Immature Granu locytes (promyelocytes, myelocytes and metamyelocytes) > 1% indicates that a LEFT SHIFT is Present. MCH (RBC) [Entitic mass] 25.9 pg 27.0-32.0 [facility] Nucleated RBC/100 WBC (Bld) [Ratio] 0 % 0-5 [facility] MCHC Auto (RBC) [Mass/Vol]on 06-11-2022 MCHC (RBC) [Mass/Vol] 33.5 g/dL 32-36 [facility] No Panel Informationon 06-11 Estimated GFR (MDRD) Amer 91 mL/min >60 [facility] Comment on above: GFR Calc Estimated GFR (MDRD) Non-Af Amer 76 mL/min >60 [facility] Comment on above: Non- GFR Calc Tacrolimus (Prograf) Level 7.4 ng/mL 2.0-20.0 [facility] Comment on above: Trough (immediately following transplant) 15.0 Trough (steady state, 2 weeks or more after transplant): 3.0 - 8.0 Performed by LC-MS/MS technology.Performed at: [place] [address] [place], [place] [id number] Director: Esteban Blount MD, Phone: [phone] Platelets bldon 06-11-2022 Platelets (Bld) [#/Vol] 120 10*3/uL 150-450 [facility] Serum or plasma albumin myla urement (mass/volume)on 06-11-2022 Albumin [Mass/Vol] 3.6 g/dL 3.2-5.0 [facility] Serum or plasma albumin/glob ulin mass ratioon 06-11-2022 Albumin/Globulin [Mass ratio] 0.9 {ratio} 0.9-2.4 [facility] Serum or plasma calcium myla urement (mass/volume)on 06-11-2022 Calcium [Mass/Vol] 9.0 mg/dL 8.5-10.1 [facility] Serum or plasma creatinine m easurement (mass/volume)on 06-11-2022 Creatinine [Mass/Vol] 0.83 mg/dL 0.55-1.02 [facility] Comment on above: The validity of the calculated GFR & GFRAA in patients over 70 years has not been determined. Clinical correlation is essential. Serum or plasma urea nitroge n measurement (mass/volume)on 06-11-2022 Urea nitrogen [Mass/Vol] 7 mg/dL 7-18 [facility] Thin prep Papanicolaou smear with manual screeningon 06-11-2022 Thin prep Papanicolaou smear with manual screening 11 U/L 15-37 [facility] Serum rheumatoid factor dete ctionOrdered By: Dr. Bunch on 03-12-2022 Rheumatoid factor Ql (S) 10.0 IU/mL <15 [facility] Culture, urineOrdered By: Dr Ruby Odell on 03-09-2022 Bacteria identified Cx Nom (U) Culture exhibits no growth. [facility] Absolute lymphocyte counton 01-23-2022 Lymphocytes Auto (Unsp spec) [#/Vol] 1.57 10*3/uL 0.83-4.51 [facility] Work Phone: Basophil percentageon 2021 Basophil percentage 2.5 mg/dL 2.5-4.9 [facility] Work Phone: Basophils/100 WBC (Bld) 0.3 % 0-1 [facility] Work Phone: Bilirubin [Mass/Vol] 0.40 mg/dL 0.20-1.00 [facility] Work Phone: Comment on above: For patients on eltr ombopag therapy, use of Dim[place] TBIL is not recommended. Chloride [Moles/Vol] 104 mmol/L 98-107 [facility] Work Phone: Eosinophils/100 WBC (Bld) 1.5 % 0-5 [facility] Work Phone: Glucose [Mass/Vol] 265 mg/dL 74-106 [facility] Work Phone: Comment on above: Glucose result great er than or equal to 200 mg/dLsuggests DIABETES MELLITUS per A.D.A. criteria. Neutrophils (Bld) [#/Vol] 3.8 10*3/uL 2.0-7.7 [facility] Work Phone: Neutrophils/100 WBC (Bld) 65.3 % 47-70 [facility] Work Phone: Potassium [Moles/Vol] 3.7 mmol/L 3.5-5.1 [facility] Work Phone: Protein [Mass/Vol] 6.7 g/dL 6.4-8.2 [facility] Work Phone: Sodium [Moles/Vol] 138 mmol/L 136-145 [facility] Work Phone: WBC (Bld) [#/Vol] 5.8 10*3/uL 4.4-11.0 [facility] Work Phone: Blood erythrocytes count (nu mber/volume)on 01-23-2022 RBC (Bld) [#/Vol] 4.60 10*6/uL 4.2-5.4 [facility] Work Phone: Blood hemoglobin measurement (mass/volume)on 01-23-2022 Hemoglobin (Bld) [Mass/Vol] 12.3 g/dL 12.0-15.0 [facility] Work Phone: Blood lymphocytes/100 leukoc yteson 01-23-2022 Lymphocytes/100 WBC (Bld) 26.9 % 19-41 [facility] Work Phone: Blood monocytes/100 leukocyt eson 01-23-2022 Monocytes/100 WBC (Bld) 5.7 % 0-10 [facility] Work Phone: Blood platelet mean volumeon 01-23-2022 Platelet mean volume (Bld) [Entitic vol] 10.1 fL 6.2-12.0 [facility] Work Phone: Determination of erythrocyte mean corpuscular volume (MCV)on 01-23-2022 MCV (RBC) [Entitic vol] 79.8 fL 81-99 [facility] Work Phone: Direct bilirubinon 2 Bilirubin.direct [Mass/Vol] 0.12 mg/dL 0.00-0.30 [facility] Work Phone: Hematocrit Auto (Bld) [Volum e fraction]on 01-23-2022 Hematocrit (Bld) [Volume fraction] 36.7 % 37-47 [facility] Work Phone: Laboratory - Chemistry and C hemistry - challengeon 01-23-2022 ALP [Catalytic activity/Vol] 139 U/L 45-117 [facility] Work Phone: ALT [Catalytic activity/Vol] 16 U/L 13-56 [facility] Work Phone: CO2 [Moles/Vol] 28.0 mmol/L 21.0-32.0 [facility] Work Phone: Globulin (S) [Mass/Vol] 3.5 g/dL 2.2-4.2 [facility] Work Phone: Urea nitrogen/Creatinine [Mass ratio] 12.2 mg/mg 10-20 [facility] Work Phone: Laboratory - Hematology and Cell countson 01-23-2022 Erythrocyte distribution width (RBC) [Entitic vol] 37.2 fL 35.1-43.9 [facility] Work Phone: Erythrocyte distribution width (RBC) [Ratio] 13.3 % 11.6-14.6 [facility] Work Phone: Immature granulocytes/100 WBC (Bld) 0.300 % 0.0-0.9 [facility] Work Phone: Comment on above: IG% - Immature Granu locytes (promyelocytes, myelocytes and metamyelocytes) > 1% indicates that a LEFT SHIFT is Present. MCH (RBC) [Entitic mass] 26.7 pg 27.0-32.0 [facility] Work Phone: Nucleated RBC/100 WBC (Bld) [Ratio] 0 % 0-5 [facility] Work Phone: MCHC Auto (RBC) [Mass/Vol]on 01-23-2022 MCHC (RBC) [Mass/Vol] 33.5 g/dL 32-36 [facility] Work Phone: No Panel Informationon 01-23 Estimated GFR (MDRD) Amer 105 mL/min >60 [facility] Work Phone: Comment on above: GFR Calc Estimated GFR (MDRD) Non-Af Amer 87 mL/min >60 [facility] Work Phone: Comment on above: Non- GFR Calc Tacrolimus (Prograf) Level 4.9 ng/mL 2.0-20.0 [facility] Work Phone: Comment on above: Trough (immediately following transplant) 15.0 Trough (steady state, 2 weeks or more after transplant): 3.0 - 8.0 Performed by LC-MS/MS technology.Performed at: [address] [id number] Director: Esteban Blount MD, Phone: [phone] Platelets bldon 01-23-2022 Platelets (Bld) [#/Vol] 119 10*3/uL 150-450 [facility] Work Phone: Serum or plasma albumin myla urement (mass/volume)on 01-23-2022 Albumin [Mass/Vol] 3.2 g/dL 3.2-5.0 [facility] Work Phone: Serum or plasma calcium myla urement (mass/volume)on 01-23-2022 Calcium [Mass/Vol] 8.7 mg/dL 8.5-10.1 [facility] Work Phone: Serum or plasma creatinine m easurement (mass/volume)on 01-23-2022 Creatinine [Mass/Vol] 0.74 mg/dL 0.55-1.02 [facility] Work Phone: Comment on above: The validity of the calculated GFR & GFRAA in patients over 70 years has not been determined. Clinical correlation is essential. Serum or plasma urea nitroge n measurement (mass/volume)on 01-23-2022 Urea nitrogen [Mass/Vol] 9 mg/dL 7-18 [facility] Work Phone: Thin prep Papanicolaou smear with manual screeningon 01-23-2022 Thin prep Papanicolaou smear with manual screening 9 U/L 15-37 [facility] Work Phone: Thin prep Papanicolaou smear with manual screening 6 5-15 [facility] Work Phone: Glucose Glucometer (BldC) [M ass/Vol]on 11-27-2021 Glucose [Mass/Vol] 181 mg/dL 74-106 [facility] Work Phone: Comment on above: MANAGEMENT OF PATIEN T CARE PER NURSING PROTOCOL Absolute lymphocyte counton 11-21-2021 Lymphocytes Auto (Unsp spec) [#/Vol] 2.03 10*3/uL 0.83-4.51 [facility] Work Phone: Acetaminophen level (mass/vo lume)on 11-21-2021 Acetaminophen (Unsp spec) [Mass/Vol] < 2.0 ug/mL 10.0-30.0 [facility] Work Phone: Basophil percentageon 11-21- 2021 Basophil percentage 0-5 SEEN /hpf 0-5 [facility] Work Phone: Ammonia (P) [Moles/Vol] 15.0 umol/L 11-32 [facility] Work Phone: Basophils/100 WBC (Bld) 0.5 % 0-1 [facility] Work Phone: Bilirubin [Mass/Vol] 0.40 mg/dL 0.20-1.00 [facility] Work Phone: Comment on above: For patients on eltr ombopag therapy, use of Dimension [place] TBIL is not recommended. Chloride [Moles/Vol] 103 mmol/L 98-107 [facility] Work Phone: Eosinophils/100 WBC (Bld) 2.0 % 0-5 [facility] Work Phone: [phone] Glucose [Mass/Vol] 207 mg/dL 74-106 [facility] Work Phone: Comment on above: Glucose result great er than or equal to 200 mg/dLsuggests DIABETES MELLITUS per A.D.A. criteria. Neutrophils (Bld) [#/Vol] 3.9 10*3/uL 2.0-7.7 [facility] Work Phone: Neutrophils/100 WBC (Bld) 59.1 % 47-70 [facility] Work Phone: Potassium [Moles/Vol] 3.8 mmol/L 3.5-5.1 [facility] Work Phone: Protein [Mass/Vol] 7.2 g/dL 6.4-8.2 [facility] Work Phone: Sodium [Moles/Vol] 137 mmol/L 136-145 [facility] Work Phone: WBC (Bld) [#/Vol] 6.6 10*3/uL 4.4-11.0 [facility] Work Phone: Bilirubin Test strip Ql (U)o n 11-21-2021 Bilirubin Ql (U) Negative Negative [facility] Work Phone: [phone] Blood erythrocytes count (nu mber/volume)on 11-21-2021 RBC (Bld) [#/Vol] 5.18 10*6/uL 4.2-5.4 [facility] Work Phone: [phone] Blood hemoglobin measurement (mass/volume)on 11-21-2021 Hemoglobin (Bld) [Mass/Vol] 13.5 g/dL 12.0-15.0 [facility] Work Phone: [phone] Blood lymphocytes/100 leukoc yteson 11-21-2021 Lymphocytes/100 WBC (Bld) 30.8 % 19-41 [facility] Work Phone: [phone] Blood monocytes/100 leukocyt eson 11-21-2021 Monocytes/100 WBC (Bld) 7.0 % 0-10 [facility] Work Phone: Blood platelet mean volumeon 11-21-2021 Platelet mean volume (Bld) [Entitic vol] 9.5 fL 6.2-12.0 [facility] Work Phone: Culture, urineon 11-21-2021 Bacteria identified Cx Nom (U) Positive [facility] Work Phone: Determination of erythrocyte mean corpuscular volume (MCV)on 11-21-2021 MCV (RBC) [Entitic vol] 78.6 fL 81-99 [facility] Work Phone: Direct bilirubinon 2 Bilirubin.direct [Mass/Vol] 0.14 mg/dL 0.00-0.30 [facility] Work Phone: [phone] Hematocrit Auto (Bld) [Volum e fraction]on 11-21-2021 Hematocrit (Bld) [Volume fraction] 40.7 % 37-47 [facility] Work Phone: [phone] Ketones Test strip Ql (U)on 11-21-2021 Ketones Ql (U) Negative Negative [facility] Work Phone: Laboratory - Chemistry and C hemistry - challengeon 11-21-2021 HCG ( test) Ql (U) Negative [facility] Work Phone: Comment on above: Very dilute urine sp ecimens, as indicated by a low specificgravity, may not contain vendor representatives levels of hCG. If is still suspected, a first morning urinespecimen should be collected 48 hours later and tested. ALP [Catalytic activity/Vol] 124 U/L 45-117 [facility] Work Phone: ALT [Catalytic activity/Vol] 22 U/L 13-56 [facility] Work Phone: CO2 [Moles/Vol] 28.0 mmol/L 21.0-32.0 [facility] Work Phone: Globulin (S) [Mass/Vol] 3.6 g/dL 2.2-4.2 [facility] Work Phone: Urea nitrogen/Creatinine [Mass ratio] 13.3 mg/mg 10-20 [facility] Work Phone: Laboratory - Drug toxicology on 11-21-2021 Amphetamines Ql (U) Negative <1000 ng/mL [facility] Work Phone: Benzodiazepines Ql (U) Negative < 200 ng/mL [facility] Work Phone: Cannabinoids Screen Ql (U) Positive < 50 ng/mL [facility] Work Phone: Cocaine Ql (U) Negative < 300 ng/mL [facility] Work Phone: Opiates Ql (U) Negative < 300 ng/mL [facility] Work Phone: Laboratory - Hematology and Cell countson 11-21-2021 Erythrocyte distribution width (RBC) [Entitic vol] 38.1 fL 35.1-43.9 [facility] Work Phone: Erythrocyte distribution width (RBC) [Ratio] 13.5 % 11.6-14.6 [facility] Work Phone: Immature granulocytes/100 WBC (Bld) 0.600 % 0.0-0.9 [facility] Work Phone: Comment on above: IG% - Immature Granu locytes (promyelocytes, myelocytes and metamyelocytes) > 1% indicates that a LEFT SHIFT is Present. MCH (RBC) [Entitic mass] 26.1 pg 27.0-32.0 [facility] Work Phone: Nucleated RBC/100 WBC (Bld) [Ratio] 0 % 0-5 [facility] Work Phone: MCHC Auto (RBC) [Mass/Vol]on 11-21-2021 MCHC (RBC) [Mass/Vol] 33.2 g/dL 32-36 [facility] Work Phone: Mucus LM Ql (Urine sed)on Mucus Ql (Urine sed) 0 SEEN /hpf [facility] Work Phone: Nitrite Test strip Ql (U)on 11-21-2021 Nitrite Ql (U) Negative Negative [facility] Work Phone: No Panel Informationon 11-21 MDMA (Ecstasy) Screen Negative < 500 ng/mL [facility] Work Phone: Urine Barbiturates Screen Negative < 200 ng/mL [facility] Work Phone: Urine Drug Screen Comment [facility] Work Phone: Comment on above: CONFIRMATORY TESTING FOR ALL POSITIVE URINE DRUG SCREENRESULTS WILL ONLY BE SENT OUT UPON PHYSICIAN ORDER. VISTA Urine Drug Screen methods provide only preliminaryanalytical test results. A more specific alternate chemicalmethod must be used in order to obtain a confirmedanalytical result. Gas chromatography/mass spectrometery(GC/MS) is the preferred confirmatory method. Clinicalconsideration and professional judgement should be appliedto any drug of abuse test result, particularly whenpreliminary positive results are used. URINE TCA TESTING MUST BE ORDERED SEPARATELY. USE TESTMNEMONIC: [facility] Urine Methadone Screen Negative < 300 ng/mL [facility] Work Phone: Carbamazepine (Tegretol) Level 6.6 ug/mL 4.0-12.0 [facility] Work Phone: Estimated Creatinine Clearance Calc 81.67 ml/min [facility] Work Phone: Estimated GFR (MDRD) Amer 117 mL/min >60 [facility] Work Phone: Comment on above: GFR Calc Estimated GFR (MDRD) Non-Af Amer 96 mL/min >60 [facility] Work Phone: Comment on above: Non- GFR Calc Ethyl Alcohol Level < 3.0 mg/dL [facility] Work Phone: Comment on above: The serum:whole bloo d ethanol ratio is approximately 1.14and varies slightly with hematocrit. Medical Alcohol reference interval and critical value innon-tolerant individuals; 50 - 100 Impairment 100 Intoxication 100 - 250 Severe Poisoning 250 - 400 Deep/possible fatal coma Thyroid Stimulating Hormone (TSH) 4.98 uIU/mL 0.358-3.74 [facility] Work Phone: Platelets bldon 11-21-2021 Platelets (Bld) [#/Vol] 122 10*3/uL 150-450 [facility] Work Phone: Protein Test strip Ql (U)on 11-21-2021 Protein Ql (U) Negative Negative [facility] Work Phone: Serum or plasma albumin myla urement (mass/volume)on 11-21-2021 Albumin [Mass/Vol] 3.6 g/dL 3.2-5.0 [facility] Work Phone: Serum or plasma calcium myla urement (mass/volume)on 11-21-2021 Calcium [Mass/Vol] 8.8 mg/dL 8.5-10.1 [facility] Work Phone: Serum or plasma creatinine m easurement (mass/volume)on 11-21-2021 Creatinine [Mass/Vol] 0.68 mg/dL 0.55-1.02 [facility] Work Phone: Comment on above: The validity of the calculated GFR & GFRAA in patients over 70 years has not been determined. Clinical correlation is essential. Serum or plasma salicylates measurement (mass/volume)on 11-21-2021 Salicylates [Mass/Vol] mg/dL 2.8-20.0 [facility] Work Phone: Serum or plasma urea nitroge n measurement (mass/volume)on 11-21-2021 Urea nitrogen [Mass/Vol] 9 mg/dL 7-18 [facility] Work Phone: Squamous epithelial cells de tection in urine sediment by light microscopyon 11-21-2021 Epithelial cells.squamous LM Ql (Urine sed) 0 SEEN /hpf 5-10 [facility] Work Phone: Thin prep Papanicolaou smear with manual screeningon 11-21-2021 Thin prep Papanicolaou smear with manual screening 19 U/L 15-37 [facility] Work Phone: Thin prep Papanicolaou smear with manual screening 6 5-15 [facility] Work Phone: Urine blood detectionon RBC Ql (U) Negative Negative [facility] Work Phone: RBC Ql (U) 0 SEEN /hpf 0-5 [facility] Work Phone: Urine clarityon 11-21-2021 Clarity (U) Clear Clear [facility] Work Phone: Urine color determinationon 11-21-2021 Color (U) Yellow Yellow [facility] Work Phone: Urine glucose detectionon Glucose Ql (U) Normal mg/dl Normal [facility] Work Phone: Urine leukocyte esterase det ection by dipstickon 11-21-2021 Leukocyte esterase Test strip Ql (U) 25 /ul Negative [facility] Work Phone: Urine pHon 11-21-2021 pH (U) 7.0 [pH] 5.0 - 8.0 [facility] Work Phone: Urine phencyclidine (PCP) de tectionon 11-21-2021 Phencyclidine Ql (U) Negative < 25 ng/mL [facility] Work Phone: Urine sediment bacteria coun t by microscopy (number/high power field)on 11-21-2021 Bacteria LM.HPF (Urine sed) [#/Area] 1 /[HPF] None Seen [facility] Work Phone: Urine specific gravity measu rementon 11-21-2021 Specific gravity (U) [Rel density] 1.010 1.002-1.03 0 [facility] Work Phone: Urobilinogen Auto test strip Ql (U)on 11-21-2021 Urobilinogen Ql (U) Normal mg/dl Normal [facility] Work Phone: Absolute lymphocyte counton 10-08-2021 Lymphocytes Auto (Unsp spec) [#/Vol] 1.83 10*3/uL 0.83-4.51 [facility] Work Phone: Basophil percentageon 2021 Basophil percentage 3.2 mg/dL 2.5-4.9 [facility] Work Phone: Basophils/100 WBC (Bld) 0.3 % 0-1 [facility] Work Phone: Bilirubin [Mass/Vol] 0.50 mg/dL 0.20-1.00 [facility] [place] Work Phone: Comment on above: For patients on eltr ombopag therapy, use of Dimension [place] TBIL is not recommended. Chloride [Moles/Vol] 103 mmol/L 98-107 [facility] [place] Work Phone: Eosinophils/100 WBC (Bld) 1.6 % 0-5 [facility] Work Phone: Glucose [Mass/Vol] 266 mg/dL 74-106 [facility] Work Phone: Comment on above: Glucose result great er than or equal to 200 mg/dLsuggests DIABETES MELLITUS per A.D.A. criteria. Neutrophils (Bld) [#/Vol] 3.7 10*3/uL 2.0-7.7 [facility] Work Phone: Neutrophils/100 WBC (Bld) 60.4 % 47-70 [facility] Work Phone: Potassium [Moles/Vol] 3.8 mmol/L 3.5-5.1 [facility] Work Phone: Protein [Mass/Vol] 7.1 g/dL 6.4-8.2 [facility] Work Phone: Sodium [Moles/Vol] 137 mmol/L 136-145 [facility] Work Phone: [phone] WBC (Bld) [#/Vol] 6.1 10*3/uL 4.4-11.0 [facility] Work Phone: Blood erythrocytes count (nu mber/volume)on 10-08-2021 RBC (Bld) [#/Vol] 4.92 10*6/uL 4.2-5.4 [facility] Work Phone: Blood hemoglobin measurement (mass/volume)on 10-08-2021 Hemoglobin (Bld) [Mass/Vol] 13.0 g/dL 12.0-15.0 [facility] Work Phone: Blood lymphocytes/100 leukoc yteson 10-08-2021 Lymphocytes/100 WBC (Bld) 30.0 % 19-41 [facility] Work Phone: Blood monocytes/100 leukocyt eson 10-08-2021 Monocytes/100 WBC (Bld) 7.2 % 0-10 [facility] Work Phone: Blood platelet mean volumeon 10-08-2021 Platelet mean volume (Bld) [Entitic vol] 9.5 fL 6.2-12.0 [facility] Work Phone: [phone] Determination of erythrocyte mean corpuscular volume (MCV)on 10-08-2021 MCV (RBC) [Entitic vol] 78.7 fL 81-99 [facility] Work Phone: Direct bilirubinon 2 Bilirubin.direct [Mass/Vol] 0.15 mg/dL 0.00-0.30 [facility] Work Phone: Hematocrit Auto (Bld) [Volum e fraction]on 10-08-2021 Hematocrit (Bld) [Volume fraction] 38.7 % 37-47 [facility] Work Phone: Laboratory - Chemistry and C hemistry - challengeon 10-08-2021 ALP [Catalytic activity/Vol] 125 U/L 45-117 [facility] Work Phone: ALT [Catalytic activity/Vol] 24 U/L 13-56 [facility] Work Phone: CO2 [Moles/Vol] 27.0 mmol/L 21.0-32.0 [facility] Work Phone: Globulin (S) [Mass/Vol] 3.6 g/dL 2.2-4.2 [facility] Work Phone: Urea nitrogen/Creatinine [Mass ratio] 19.1 mg/mg 10-20 [facility] Work Phone: Laboratory - Hematology and Cell countson 10-08-2021 Erythrocyte distribution width (RBC) [Entitic vol] 39.3 fL 35.1-43.9 [facility] Work Phone: Erythrocyte distribution width (RBC) [Ratio] 14.1 % 11.6-14.6 [facility] Work Phone: Immature granulocytes/100 WBC (Bld) 0.500 % 0.0-0.9 [facility] Work Phone: Comment on above: IG% - Immature Granu locytes (promyelocytes, myelocytes and metamyelocytes) > 1% indicates that a LEFT SHIFT is Present. MCH (RBC) [Entitic mass] 26.4 pg 27.0-32.0 [facility] Work Phone: Nucleated RBC/100 WBC (Bld) [Ratio] 0 % 0-5 [facility] Work Phone: MCHC Auto (RBC) [Mass/Vol]on 10-08-2021 MCHC (RBC) [Mass/Vol] 33.6 g/dL 32-36 [facility] Work Phone: No Panel Informationon 10-08 Estimated GFR (MDRD) Amer 106 mL/min >60 [facility] Work Phone: Comment on above: GFR Calc Estimated GFR (MDRD) Non-Af Amer 88 mL/min >60 [facility] Work Phone: Comment on above: Non- GFR Calc Miscellaneous Test See comment [facility] Work Phone: Comment on above: TEST RESULT LIMITSHB V DNA RealTime Wiseman Hepatitis B Quantitation HBV DNA not detected IU/mL HBV log10 Unable to calculate result since non-numeric result obtained for component test. Test Information: The quantifiable range of this assay is 10 to 1,000,000,000 IU/mL and the limit of detection of the assay is 10 IU/mL TESTING PERFORMED AT [facility]. ORIGINAL REPORT ON FILE IN LAB CONTAINS ADDITIONAL TEST SITE INFORMATION. ____ Tacrolimus (Prograf) Level 4.2 ng/mL 2.0-20.0 [facility] Work Phone: Comment on above: Trough (immediately following transplant) 15.0 Trough (steady state, 2 weeks or more after transplant): 3.0 - 8.0 Performed by LC-MS/MS technology.Performed at: [address] [id number] Director: Esteban Blount MD, Phone: [phone] Platelets bldon 10-08-2021 Platelets (Bld) [#/Vol] 110 10*3/uL 150-450 [facility] Work Phone: Serum or plasma albumin myla urement (mass/volume)on 10-08-2021 Albumin [Mass/Vol] 3.5 g/dL 3.2-5.0 [facility] Work Phone: Serum or plasma albumin/glob ulin mass ratioon 10-08-2021 Albumin/Globulin [Mass ratio] 1.0 {ratio} 0.9-2.4 [facility] Work Phone: Serum or plasma calcium myla urement (mass/volume)on 10-08-2021 Calcium [Mass/Vol] 8.5 mg/dL 8.5-10.1 [facility] Work Phone: Serum or plasma creatinine m easurement (mass/volume)on 10-08-2021 Creatinine [Mass/Vol] 0.73 mg/dL 0.55-1.02 [facility] Work Phone: Comment on above: The validity of the calculated GFR & GFRAA in patients over 70 years has not been determined. Clinical correlation is essential. Serum or plasma urea nitroge n measurement (mass/volume)on 10-08-2021 Urea nitrogen [Mass/Vol] 14 mg/dL 7-18 [facility] Work Phone: Thin prep Papanicolaou smear with manual screeningon 10-08-2021 Thin prep Papanicolaou smear with manual screening 22 U/L 15-37 [facility] Work Phone: Thin prep Papanicolaou smear with manual screening 7 5-15 [facility] Work Phone: Basophil percentageon 2021 Ammonia (P) [Moles/Vol] 20.0 umol/L 11-32 [facility] Work Phone: Bilirubin [Mass/Vol] 0.30 mg/dL 0.20-1.00 [facility] Work Phone: Comment on above: For patients on eltr ombopag therapy, use of Dimension [place] TBIL is not recommended. Chloride [Moles/Vol] 101 mmol/L 98-107 [facility] Work Phone: Glucose [Mass/Vol] 215 mg/dL 74-106 [facility] Work Phone: Comment on above: Glucose result great er than or equal to 200 mg/dLsuggests DIABETES MELLITUS per A.D.A. criteria. Potassium [Moles/Vol] 4.2 mmol/L 3.5-5.1 [facility] Work Phone: Protein [Mass/Vol] 7.2 g/dL 6.4-8.2 [facility] Work Phone: Sodium [Moles/Vol] 136 mmol/L 136-145 [facility] Work Phone: WBC (Bld) [#/Vol] 6.2 10*3/uL 4.4-11.0 [facility] Work Phone: Blood erythrocytes count (nu mber/volume)on 07-04-2021 RBC (Bld) [#/Vol] 4.84 10*6/uL 4.2-5.4 [facility] Work Phone: Blood hemoglobin measurement (mass/volume)on 07-04-2021 Hemoglobin (Bld) [Mass/Vol] 12.9 g/dL 12.0-15.0 [facility] Work Phone: Blood platelet mean volumeon 07-04-2021 Platelet mean volume (Bld) [Entitic vol] 10.2 fL 6.2-12.0 [facility] Work Phone: Determination of erythrocyte mean corpuscular volume (MCV)on 07-04-2021 MCV (RBC) [Entitic vol] 82.2 fL 81-99 [facility] Work Phone: Hematocrit Auto (Bld) [Volum e fraction]on 07-04-2021 Hematocrit (Bld) [Volume fraction] 39.8 % 37-47 [facility] Work Phone: Laboratory - Chemistry and C hemistry - challengeon 07-04-2021 ALP [Catalytic activity/Vol] 112 U/L 45-117 [facility] Work Phone: ALT [Catalytic activity/Vol] 19 U/L 13-56 [facility] Work Phone: CO2 [Moles/Vol] 27.0 mmol/L 21.0-32.0 [facility] Work Phone: Globulin (S) [Mass/Vol] 3.6 g/dL 2.2-4.2 [facility] Work Phone: Urea nitrogen/Creatinine [Mass ratio] 15.9 mg/mg 10-20 [facility] Work Phone: Laboratory - Hematology and Cell countson 07-04-2021 Erythrocyte distribution width (RBC) [Entitic vol] 39.8 fL 35.1-43.9 [facility] Work Phone: Erythrocyte distribution width (RBC) [Ratio] 13.4 % 11.6-14.6 [facility] Work Phone: MCH (RBC) [Entitic mass] 26.7 pg 27.0-32.0 [facility] Work Phone: MCHC Auto (RBC) [Mass/Vol]on 07-04-2021 MCHC (RBC) [Mass/Vol] 32.4 g/dL 32-36 [facility] Work Phone: No Panel Informationon 07-04 Thyroid Stimulating Hormone (TSH) 1.85 uIU/mL 0.358-3.74 [facility] Work Phone: Carbamazepine (Tegretol) Level 4.3 ug/mL 4.0-12.0 [facility] Work Phone: Estimated GFR (MDRD) Amer 114 mL/min >60 [facility] Work Phone: Comment on above: GFR Calc Estimated GFR (MDRD) Non-Af Amer 94 mL/min >60 [facility] Work Phone: Comment on above: Non- GFR Calc Platelets bldon 07-04-2021 Platelets (Bld) [#/Vol] 142 10*3/uL 150-450 [facility] Work Phone: Serum or plasma albumin myla urement (mass/volume)on 07-04-2021 Albumin [Mass/Vol] 3.6 g/dL 3.2-5.0 [facility] Work Phone: Serum or plasma albumin/glob ulin mass ratioon 07-04-2021 Albumin/Globulin [Mass ratio] 1.0 {ratio} 0.9-2.4 [facility] Work Phone: Serum or plasma calcium myla urement (mass/volume)on 07-04-2021 Calcium [Mass/Vol] 9.1 mg/dL 8.5-10.1 [facility] Work Phone: Serum or plasma creatinine m easurement (mass/volume)on 07-04-2021 Creatinine [Mass/Vol] 0.69 mg/dL 0.55-1.02 [facility] Work Phone: Comment on above: The validity of the calculated GFR & GFRAA in patients over 70 years has not been determined. Clinical correlation is essential. Serum or plasma urea nitroge n measurement (mass/volume)on 07-04-2021 Urea nitrogen [Mass/Vol] 11 mg/dL 7-18 [facility] Work Phone: Thin prep Papanicolaou smear with manual screeningon 07-04-2021 Thin prep Papanicolaou smear with manual screening 9 U/L 15-37 [facility] Work Phone: Thin prep Papanicolaou smear with manual screening 8 5-15 [facility] Work Phone: Whole blood hemoglobin A1c/t otal hemoglobin ratio (mass fraction)on 07-04-2021 HbA1c (Bld) [Mass fraction] 7.3 % 3.8-5.6 [facility] Work Phone: Comment on above: Normal < 5.7 % Predi abetic 5.7 - 6.4 % Diabetic >or= 6.5 % Please note range changes. Glucose Glucometer (BldC) [M ass/Vol]on 06-21-2021 Glucose [Mass/Vol] 250 mg/dL 70-110 [facility] Work Phone: Comment on above: MANAGEMENT OF NILTON T CARE PER NURSING PROTOCOL No Panel Informationon 06-20 SARS-CoV-2 Antigen (Rapid) [facility] Work Phone: BD BONE DENSITY DEXA AXIAL S KELETONon 01-18-2020 BD BONE DENSITY DEXA AXIAL SKELETON ORIGINAL BONE DENSITOMETRY CLINICAL STATEMENT: Osteoporosis Screening. Postmenopausal 54-year-old white female. Patient reports arthritis, epilepsy, and prior history of skin cancer. Patient also reports prior fractures of the thoracic spine and ribs. COMPARISON: None. T Score Left Femoral Neck: -2.8 BMD (g/cm2) Left Femoral Neck: 0.533 T Score Left Hip: -1.4 BMD (g/cm2) Left Hip: 0.768 T Score Lumbar Spine L1-L4: -2.7 BMD (g/cm2) Lumbar Spine L1-L4: 0.755 COMMENTS:Baseline exam. CONCLUSION: Osteoporosis. *By the World Health Organization standards: Osteopenia is present when the bone mineral density is greater than 1 standard deviation (SD) but less than 2.5 SDs below a young normal sex matched population. Osteoporosis is present when the bone mineral density is equal to or greater than 2.5 SDs below a young normal sex matched population. I have personally reviewed the images of this examination and agree with the resident's findings and interpretation. Interpreted By: Ankush Melissa MD Preliminary Report By: Howie Qiu DO Electronically Signed By: Ankush Melissa MD Dictated Date: 01/18/2020 1:56:31 PM Prelim Date: 01/18/2020 1:58:51 PM Sign Date: 01/18/2020 2:12:16 PM Ordering Provider:Anna Clay [facility] ([place]) MA MAMMOGRAM SCREENING BILAT ERAL W/TOMOon 01-17-2020 MA MAMMOGRAM SCREENING BILATERAL W/ALICE ORIGINAL FROM: [address] [address] PROCEDURE FOR: [address] [place] [address] Home: PID#: [id number] Exam#: [id number] : 1965 Age: 54 TO: ANNA MEZA DICE DEALER NATURAL RESOURCES EXTENSION EDUCATOR [address] [id number] #[id number] BILATERAL DIGITAL SCREENING MAMMOGRAM 3D/2D WITH CAD WITH MEDIOLATERAL OBLIQUE CRANIOCAUDAL: 01/17/2020 Comparison is made to exams dated: 01/13/2014 mammogram, 07/10/2011 mammogram - [facility], and 09/19/2017 mammogram - [facility]. There are scattered fibroglandular elements in both breasts. Current study was also evaluated with a Computer Aided Detection (CAD) system. There are benign calcifications in both breasts. No significant masses, calcifications, or other findings are seen in either breast. There has been no significant interval change. IMPRESSION: BENIGN There is no mammographic evidence of malignancy. A 1 year screening mammogram is recommended.(01/17/2021) JUVENCIO ivey/mihir:01/18/2020 07:36:19 Agricultural Extension Officer(s): RT RITA (R) (M) ([place]), [facility] letter sent: Normal BI-RADS 1&2 Mammogram BI-RADS: 2 Benign Normal [facility] ([place]) COVIDon 01-07-2020 COVID 19 Result PUBLIC RELATIONS SUPERVISOR See Below Normal [facility]) Comment on above: Result Comment: Nega tive Negative for COVID19 (SARS CoV2) by PCR. This test was developed and its performance characteristics determined by [facility]'s [facility] [place]. This test has been authorized by FDA under an Emergency Use Authorization (EUA). This test has been validated in accordance with the FDA's Guidance Document Policy for Diagnostics Testing in Laboratories Certified to Perform High Complexity Testing under CLIA prior to Emergency use Authorization for Coronavirus Disease 2019 during the Public Health Emergency" issued on August 14, 2019. Performed By: [facility] Agent Partner [address] [place] [address] Mud Boss: Taty Mckenzie III#: [id number] Phone#: Performed By: #### C OVID #### [address] [place], [place] [address] COVID 19 Source PUBLIC RELATIONS SUPERVISOR See Below Normal [facility] ([place]) Comment on above: Result Comment: Naso pharyngeal Swab Performed By: [facility] Agent Partner [address] [place] [address] Mud Boss: Taty Mckenzie IIIIA#: [id number] Phone#: Performed By: #### C OVID #### [address] [place], [place] [address] BLOOD CULTUREon 05-08-2018 Bacteria identified Cx Nom (Bld) NO GROWTH AFTER 5 DAYS Normal [facility] Comment on above: Order Comment: Paige Deleon Performed By: #### L 500.38355, L500.73820, L500.49943 ####[facility] [id number] [place], [place] [address]Zk# [phone] AMMONIAon 05-03-2018 Ammonia mass conc (P) 91.3 UMOL/L High 11.0-32.0 [facility] Comment on above: Order Comment: Paige Deleon Result Comment: RESU LTS MAY BE FALSELY DEPRESSED AFTER THE ADMINISTRATION OFSULFAPYRIDINE. RESULTS MAY BE FALSELY ELEVATED AFTER THEADMINISTRATION OF SULFASALAZINE. Performed By: #### L 500.25721, L500.97645, L500.18765 ####[facility] [id number] [place], [place] [address]Rq# [phone] Ammonia mass conc (P) 50.0 UMOL/L High 11.0-32.0 [facility] Comment on above: Order Comment: Paige Deleon Result Comment: RESU LTS MAY BE FALSELY DEPRESSED AFTER THE ADMINISTRATION OFSULFAPYRIDINE. RESULTS MAY BE FALSELY ELEVATED AFTER THEADMINISTRATION OF SULFASALAZINE. Performed By: #### L 500.15590, L500.81348, L500.71524 ####[facility] [id number] [place], [place] [address]Cw# [phone] Ammonia mass conc (P) 147.2 UMOL/L High 11.0-32.0 [facility] Comment on above: Order Comment: Campu s: M Result Comment: RESU LTS MAY BE FALSELY DEPRESSED AFTER THE ADMINISTRATION OFSULFAPYRIDINE. RESULTS MAY BE FALSELY ELEVATED AFTER THEADMINISTRATION OF SULFASALAZINE. Performed By: #### L 500.88841, L500.42980, L500.40286 ####[facility] [id number] [place] [address]Dm# [phone] CBC W/DIFFon 05-03-2018 BASO ABS 0.00 K/CU MM Normal 0[facility]0.2 [facility]: Order Comment: Campu s: M Performed By: #### L 500.20075, L500.02604, L500.10050 ####[facility] [id number] [place] [address]Yk# [phone] Basophils/100 WBC Auto (Bld) 0.5 % Normal 0-2 [facility] Comment on above: Order Comment: Campu s: M Performed By: #### L 500.53948, L500.58175, L500.96260 ####[facility] [id number] [place] [address]Uh# [phone] EOS ABS 0.10 K/CU MM Normal 0-0.5 [facility] Comment on above: Order Comment: Campu s: M Performed By: #### L 500.70050, L500.43436, L500.18248 ####[facility] [id number] [place] [address]Ik# [phone] Eosinophils/100 WBC Auto (Bld) 1.8 % Normal 0-5 [facility] Comment on above: Order Comment: Campu s: M Performed By: #### L 500.13392, L500.54676, L500.58401 ####[facility] [id number] [place], [place] [address]Zb# [phone] Erythrocyte distribution width Auto Ratio (RBC) 12.8 % Normal 11-14.5 [facility] Comment on above: Order Comment: Campu s: M Performed By: #### L 500.06572, L500.47167, L500.80468 ####[address] [address]Gz# [phone] Hematocrit Auto Volume Fraction (Bld) 35.5 % Normal 35.0-47.0 [facility] Comment on above: Order Comment: Campu s: M Performed By: #### L 500.33576, L500.21594, L500.54097 ####[address] [address]Hn# [phone] Hemoglobin mass conc (Bld) 12.7 g/dL Normal 11.5-15.5 [facility] Comment on above: Order Comment: Campu s: M Performed By: #### L 500.19011, L500.53291, L500.23823 ####[address] [address]Ti# [phone] IMMATR GRAN ABS 0.00 K/CU MM Normal Less than 2 [facility] Comment on above: Order Comment: Campu s: M Performed By: #### L 500.02678, L500.86196, L500.59500 ####[facility] [id number] [place] [address]Ib# [phone] IMMATURE GRAN % 0.2 % Normal Less than 2 [facility] Comment on above: Order Comment: Campu s: M Performed By: #### L 500.62273, L500.53836, L500.45945 ####[facility] [id number] [place], [place] [id number]# [phone] Lymphocytes Auto #/vol (Bld) 1.30 K/CU MM Normal 0.9-4.4 [facility] Comment on above: Order Comment: Campu s: M Performed By: #### L 500.52230, L500.97180, L500.89236 ####[facility] [id number] [place], [place] [address]Qs# [phone] Lymphocytes/100 WBC Auto (Bld) 28.7 % Normal 20-40 [facility] Comment on above: Order Comment: Campu s: M Performed By: #### L 500.14613, L500.50712, L500.82158 ####[address] [id number]# [phone] MCHC Auto mass conc (RBC) 35.8 g/dL Normal 32.0-36.0 [facility] Comment on above: Order Comment: Campu s: M Performed By: #### L 500.81711, L500.58312, L500.43113 ####[facility] [id number] [place] [address]Oc# [phone] MCV Auto Entitic volume (RBC) 87.2 fL Normal 80.0-99.0 [facility] Comment on above: Order Comment: Campu s: M Performed By: #### L 500.97225, L500.14111, L500.82002 ####[facility] [id number] [place] [address]Qd# [phone] MONO ABS 0.30 K/CU MM Normal 0.1-1.1 [facility] [facility] Comment on above: Order Comment: Campu s: M Performed By: #### L 500.08577, L500.37731, L500.36570 ####[facility] [id number] [place] [address]Sk# [phone] Monocytes/100 WBC Auto (Bld) 6.9 % Normal 2-10 [facility] Comment on above: Order Comment: Campu s: M Performed By: #### L 500.53588, L500.74850, L500.48832 ####[facility] IKCKADDCDX2327 [place], [place] [address]Aq# [phone] NEUTROPHIL ABS 2.70 K/CU MM Normal 2.0-8.3 [facility] Comment on above: Order Comment: Campu s: M Performed By: #### L 500.41280, L500.39821, L500.31039 ####[facility] PHDNPMNQGF0354 [place], [place] [address]Ek# [phone] Neutrophils/100 WBC Auto (Bld) 61.9 % Normal 45-75 [facility] Comment on above: Order Comment: Campu s: M Performed By: #### L 500.05288, L500.27304, L500.42981 ####[address] [place], [place] [address]Qx# [phone] Nucleated RBC/100 WBC Ratio (Bld) 0.5 % Normal Less than 1 [facility] Comment on above: Order Comment: Campu s: M Performed By: #### L 500.42296, L500.38967, L500.64833 ####[facility] HINKXUEWDN8929 [place], [place] [address]Ib# [phone] Platelet mean volume Auto Entitic volume (Bld) 10.4 fL Normal 9.4-12.4 [facility] Comment on above: Order Comment: Campu s: M Performed By: #### L 500.47341, L500.91661, L500.65896 ####[facility] LJCLSDADVZ3580 [place], [place] [address]On# [phone] Platelets Auto #/vol (Bld) 56 K/CU MM Low 150-450 [facility] Comment on above: Order Comment: Campu s: M Result Comment: Conf irmed by slide estimate.Consistent with previous. Performed By: #### L 500.62546, L500.41575, L500.00860 ####[facility] [id number] [place] [address]Fb# [phone] PLT EST MOD DECREASED Normal [facility] Comment on above: Order Comment: Campu s: M Performed By: #### L 500.02402, L500.35805, L500.18096 ####[facility] IAXETEWUNR8558 [place], [place] [address]Fp# [phone] POIK 1+ Normal [facility] Comment on above: Order Comment: Campu s: M Performed By: #### L 500.14729, L500.49314, L500.95845 ####[address] [place], [place] [address]Ex# [phone] RBC Auto #/vol (Bld) 4.07 M/CU MM Normal 3.90-5.30 [facility] Comment [facility]: Order Comment: Campu s: M Performed By: #### L 500.53765, L500.64925, L500.97102 ####[address] [address]Dm# [phone] WBC Auto #/vol (Bld) 4.4 K/CU MM Low 4.5-11.0 [facility] [place] Comment on above: Order Comment: Campu s: M Performed By: #### L 500.03545, L500.47766, L500.59707 ####[facility] [id number] [place] [address]Vp# [phone] CMPon 05-03-2018 Albumin mass conc 2.7 g/dL Low 3.2-5.0 [facility] Comment on above: Order Comment: Campu s: M Performed By: #### L 500.34847, L500.17480, L500.74000 ####[facility] UFIPNPAZRV[address] [place] [address]Be# [phone] Albumin/Globulin mass ratio 0.9 {ratio} Normal 0.8-2.0 [facility] Comment on above: Order Comment: Campu s: M Performed By: #### L 500.33031, L500.36813, L500.84279 ####[facility] OEHJIPDHJJ3463 [place], [place] [address]By# [phone] ALK PHOS 143 U/L High 45-117 [facility] Comment on above: Order Comment: Campu s: M Performed By: #### L 500.99215, L500.71992, L500.50608 ####[facility] RCMMTZLNKL4111 [place], [place] [address]Uf# [phone] ALT enzyme act/vol 23 U/L Normal 13-61 [facility] Comment on above: Order Comment: Campu s: M Result Comment: RESU LTS MAY BE FALSELY DEPRESSED AFTER THE ADMINISTRATION OFSULFASALAZINE AND/OR SULFAPYRIDINE. Performed By: #### L 500.12062, L500.44896, L500.46834 ####[facility] BWTTCAKBJF5089 [place], [place] [address]Rj# [phone] Anion gap 3 molar conc 7 mmol/L Normal 5-16 [facility] Comment on above: Order Comment: Campu s: M Performed By: #### L 500.28222, L500.06704, L500.45897 ####[facility] FNJSHGBURZ2780 [place], [place] [address]Xw# [phone] BILI TOTAL 1.1 MG/DL High 0.2-1.0 [facility] Comment on above: Order Comment: Campu s: M Performed By: #### L 500.36082, L500.51288, L500.28457 ####[facility] ZDFQYQNWQN9267 [place], [place] [address]Ru# [phone] Calcium mass conc 8.0 mg/dL Low 8.5-10.1 [facility] Comment on above: Order Comment: Campu s: M Performed By: #### L 500.34823, L500.65053, L500.03618 ####[facility] SFRUURYOIY1896 [place], [place] [address]Xb# [phone] Chloride molar conc 111 mmol/L High 98-107 [facility] Comment on above: Order Comment: Campu s: M Performed By: #### L 500.23806, L500.45849, L500.03680 ####[facility] XFWWMUPEML1387 [place], [place] [address]Bf# [phone] CO2 molar conc 25 mmol/L Normal 21-32 [facility] Comment on above: Order Comment: Campu s: M Performed By: #### L 500.60956, L500.57399, L500.32456 ####[facility] KPLJKPJOQZ5831 [place], [place] [address]Mt# [phone] Creatinine mass conc 0.491 mg/dL Low 0.510-0 .95 0 [facility] Comment on above: Order Comment: Campu s: M Result Comment: Lexi ents receiving either N-Acetylcysteine (NAC) orMetamizole prior to venipuncture, may have falsely depressedresults. Performed By: #### L 500.59463, L500.00267, L500.49641 ####[facility] LRXKTKFWLL4469 [place], [place] [address]Me# [phone] Globulin Calculated mass conc (S) 3.1 g/dL Normal 2.2-4.2 [facility] Comment on above: Order Comment: Campu s: M Performed By: #### L 500.99697, L500.35361, L500.47568 ####[facility] QINBKHGEEZ8006 [place], [place] [address]Cv# [phone] Glucose mass conc 159 mg/dL High 70-100 [facility] Comment on above: Order Comment: Campu s: M Result Comment: 70-1 00- Normal Fasting; 100-125 Impaired Fasting; greaterthan 126 on more than one result- Diabetes. ADA guidelines.Results may be falsely elevated after the administration ofSulfapyridine.Results may be falsely depressed after the administration ofSulfasalazine. Performed By: #### L 500.51836, L500.25242, L500.29078 ####[facility] VJAGYJHENB8888 [place], [place] [address]Gt# [phone] Potassium molar conc 3.5 mmol/L Normal 3.5-5.1 [facility] [place] Comment on above: Order Comment: Campu s: M Performed By: #### L 500.91397, L500.58296, L500.37472 ####[facility] LPNQKZCUMI6519 [place], [place] [address]Se# [phone] Protein mass conc 5.8 g/dL Low 6.0-8.5 [facility] [place] Comment on above: Order Comment: Campu s: M Performed By: #### L 500.78567, L500.16405, L500.36042 ####[facility] PUQQLKKNMA7909 [place], [place] [address]Rr# [phone] SGOT (AST) 33 U/L Normal 8-34 [facility] Comment on above: Order Comment: Campu s: M Result Comment: RESU LTS MAY BE FALSELY DEPRESSED AFTER THE ADMINISTRATION OFSULFASALAZINE AND/OR SULFAPYRIDINE. Performed By: #### L 500.59980, L500.77067, L500.95310 ####[facility] ROZKWDSKIS0004 [place], [place] [address]Ya# [phone] Sodium molar conc 142 mmol/L Normal 136-145 [facility] Comment on above: Order Comment: Campu s: M Performed By: #### L 500.67275, L500.37790, L500.63815 ####[facility] DUMLCBNOFO2275 [place], [place] [address]Sm# [phone] Urea nitrogen mass conc 4 mg/dL Low 7-26 [facility] [place] Comment on above: Order Comment: Campu s: M Performed By: #### L 500.04206, L500.25386, L500.82532 ####[facility] HVAJCFQOKZ6278 [place], [place] [address]Ab# [phone] Urea nitrogen/Creatinine mass ratio 8 mg/mg Low 15-24 [facility] Comment on above: Order Comment: Campu s: M Performed By: #### L 500.81587, L500.23044, L500.70405 ####[facility] CIUCJFJZIW8233 [place], [place] [address]Rk# [phone] GFR ESTon 05-03-2018 IF AMER Greater than 60 Normal [facility] [place] Comment on above: Order Comment: Campu s: M Performed By: #### L 500.50819, L500.28513, L500.43013 ####[facility] LEFFGVXITZ1700 [place], [place] [address]Qx# [phone] IF non-AFR AMER Greater than 60 Normal [facility] [place] Comment on above: Order Comment: Senthilu s: M Performed By: #### L 500.98561, L500.57128, L500.09177 ####[facility] IEZTDJYQIP9493 [place], [place] [address]Af# [phone] LACTIC ACIDon 05-03-2018 Lactate molar conc 1.09 mmol/L Normal 0.40-2.00 [facility] Comment on above: Order Comment: Campu s: M Performed By: #### L 500.30740, L500.27072, L500.21078 ####[facility] XBEGOYPHNK1409 [place], [place] [address]So# [phone] PROCALCITONINon 05-03-2018 Protein mass conc 0.05 g/dL Normal 0.00-0.50 [facility] Comment on above: Order Comment: Senthilu s: M Result Comment: PCT CONCENTRATION INTERPRETATIONPCT <= 0.5 NG/ML: SYSTEMIC INFECTION (SEPSIS) IS NOT LIKELY. LOCAL BACTERIAL INFECTION IS POSSIBLE.PCT >0.5 AND <= 2.0 NG/ML: SYSTEMIC INFECTION (SEPSIS) IS POSSIBLE, BUT OTHER CONDITIONS ARE KNOWN TO ELEVATE PCT WELL.PCT >2.0 NG/ML: SYSTEMIC INFECTION (SEPSIS) IS LIKELY UNLESS OTHER CAUSES ARE KNOWN.PCT >= 10.0 NG/ML: IMPORTANT SYSTEMIC INFLAMMATORY RESPONSE, ALMOST EXCLUSIVELY DUE TO SEVERE BACTERIAL SEPSIS OR SEPTIC SHOCK Performed By: #### L 500.40578, L500.57040, L500.94123 ####[facility] OLLQKTSTVN5764 [place], [place] [address]Fs# [phone] PTon 05-03-2018 INR Coag RelTime (PPP) 1.35 {INR} High 0.9-1.1 [facility] Comment on above: Order Comment: Campu s: MMinimal Draw: Y: please use collected sample if possible. Result Comment: Scooby mmended PT INR therapeutic range for long term care phlebotomist andprophylactic therapy is 2.0 - 3.0. For heart valve andshunt patients the range is 2.5 - 3.5. Performed By: #### L 300.43128 ####[facility] LPVWIHLFIP0159 [place], [place] [address]Ug# [phone] PTS 14.4 SECONDS High 9.5-12.0 [facility] Comment on above: Order Comment: Campu s: MMinimal Draw: Y: please use collected sample if possible. Performed By: #### L 300.73018 ####[facility] HBYHLJDLHO0166 [place], [place] [address]Wc# [phone] TROPONIN Ion 05-03-2018 Troponin I.cardiac mass conc 0.015 ng/mL Normal 0.000-0.04 5 [facility] Comment on above: Order Comment: Paige s: M Performed By: #### L 500.56646, L500.79016, L500.09459 ####[facility] SIFKLVFFNC2768 [place], [place] [address]Uw# [phone] AMMONIAon 05-02-2018 Ammonia mass conc (P) 62.4 UMOL/L High 11.0-32.0 [facility] Comment on above: Order Comment: Paige s: M Result Comment: RESU LTS MAY BE FALSELY DEPRESSED AFTER THE ADMINISTRATION OFSULFAPYRIDINE. RESULTS MAY BE FALSELY ELEVATED AFTER THEADMINISTRATION OF SULFASALAZINE. Performed By: #### L 500.14833 ####[facility] NRNXYRDZLQ6088 [place], [place] [address]Bl# [phone] BMPon 05-02-2018 Anion gap 3 molar conc 4 mmol/L Low 5-16 [facility] Comment on above: Order Comment: Campu s: M Performed By: #### L 500.15883, L500.71785, L500.13683 ####[facility] YDCBVZMAMD9810 [place], [place] [address]Fv# [phone] Calcium mass conc 8.0 mg/dL Low 8.5-10.1 [facility] Comment on above: Order Comment: Campu s: M Performed By: #### L 500.58467, L500.56026, L500.55838 ####[facility] XPMFNBAGQM8973 [place], [place] [address]Pl# [phone] Chloride molar conc 107 mmol/L Normal 98-107 [facility] Comment on above: Order Comment: Campu s: M Performed By: #### L 500.00352, L500.90073, L500.50839 ####[facility] FOVVYVDOUY4993 [place], [place] [address]Bn# [phone] CO2 molar conc 30 mmol/L Normal 21-32 [facility] Comment on above: Order Comment: Campu s: M Performed By: #### L 500.00803, L500.45966, L500.98081 ####[facility] VGTUHTEIDH0297 [place], [place] [address]Hb# [phone] Creatinine mass conc 0.486 mg/dL Low 0.510-0 .95 0 [facility] Comment on above: Order Comment: Campu s: M Result Comment: Lexi ents receiving either N-Acetylcysteine (NAC) orMetamizole prior to venipuncture, may have falsely depressedresults. Performed By: #### L 500.35353, L500.45026, L500.86520 ####[facility] IJUOXGMHSU2201 [place], [place] [address]Sv# [phone] Glucose mass conc 172 mg/dL High 70-100 [facility] Comment on above: Order Comment: Campu s: M Result Comment: 70-1 00- Normal Fasting; 100-125 Impaired Fasting; greaterthan 126 on more than one result- Diabetes. ADA guidelines.Results may be falsely elevated after the administration ofSulfapyridine.Results may be falsely depressed after the administration ofSulfasalazine. Performed By: #### L 500.14905, L500.02674, L500.92566 ####[facility] XFUPRLHUWO4419 [place], [place] [address]Yg# [phone] Potassium molar conc 3.7 mmol/L Normal 3.5-5.1 [facility] [place] Comment on above: Order Comment: Campu s: M Performed By: #### L 500.36270, L500.11135, L500.37887 ####[address] [address]Zo# [phone] Sodium molar conc 141 mmol/L Normal 136-145 [facility] Comment on above: Order Comment: Campu s: M Performed By: #### L 500.27659, L500.91112, L500.62897 ####[facility] OPADCAWBCL[address] [place] [address]Bp# [phone] Urea nitrogen mass conc 3 mg/dL Low 7-26 [facility] Comment on above: Order Comment: Campu s: M Performed By: #### L 500.12993, L500.24181, L500.29218 ####[facility] GHWQCIIJLL3393 [place], [place] [address]Fb# [phone] Urea nitrogen/Creatinine mass ratio 7 mg/mg Low 15-24 [facility] Comment on above: Order Comment: Campu s: M Performed By: #### L 500.33301, L500.69331, L500.93494 ####[facility] [id number] [place] [address]Qz# [phone] CBC W/DIFFon 05-02-2018 BASO ABS 0.00 K/CU MM Normal 0-0.2 [facility] Comment on above: Order Comment: Campu s: M Performed By: #### L 200.91860 ####[facility] [id number] [place] [address]Nr# [phone] Basophils/100 WBC Auto (Bld) 0.9 % Normal 0-2 [facility] [place] Comment on above: Order Comment: Campu s: M Performed By: #### L 200.32614 ####[facility] PMZEBAWDPD2026 [place] [address]Ph# [phone] EOS ABS 0.10 K/CU MM Normal 0-0.5 [facility] [place] Comment on above: Order Comment: Campu s: M Performed By: #### L 200.35260 ####[facility] [id number] [place], [place] [address]Ph# [phone] Eosinophils/100 WBC Auto (Bld) 1.5 % Normal 0-5 [facility] [place] Comment on above: Order Comment: Campu s: M Performed By: #### L 200.23836 ####[facility] TOJSVOYXUO[address] [place], [place] [address]Ph# [phone] Erythrocyte distribution width Auto Ratio (RBC) 12.9 % Normal 11-14.5 [facility] [place] Comment on above: Order Comment: Campu s: M Performed By: #### L 200.27683 ####[facility] ZOESPONHMC[address] [place], [place] [address]Ph# [phone] Hematocrit Auto Volume Fraction (Bld) 38.4 % Normal 35.0-47.0 [facility] Comment on above: Order Comment: Campu s: M Performed By: #### L 200.79254 ####[facility] [id number] [place], [place] [address]Ph# [phone] Hemoglobin mass conc (Bld) 13.4 g/dL Normal 11.5-15.5 [facility] [place] Comment on above: Order Comment: Campu s: M Performed By: #### L 200.31030 ####[facility] FTPWNATJDH[address] [place], [place] [address]Ph# [phone] IMMATR GRAN ABS 0.00 K/CU MM Normal Less than 2 [facility] [place] Comment on above: Order Comment: Campu s: M Performed By: #### L 200.48781 ####[facility] BDWCHOLSDX6103 [place] [address]Ph# [phone] IMMATURE GRAN % 0.2 % Normal Less than 2 [facility] [place] Comment on above: Order Comment: Campu s: M Performed By: #### L 200.47241 ####[facility] TMSMWDZIUU[address] [place], [place] [address]Ph# [phone] Lymphocytes Auto #/vol (Bld) 1.30 K/CU MM Normal 0.9-4.4 [facility] [place] Comment on above: Order Comment: Campu s: M Performed By: #### L 200.34891 ####[place] [address]Ph# [phone] Lymphocytes/100 WBC Auto (Bld) 27.5 % Normal 20-40 [facility] [place] Comment on above: Order Comment: Campu s: M Performed By: #### L 200.33041 ####[place] [address]Ph# [phone] MCHC Auto mass conc (RBC) 34.9 g/dL Normal 32.0-36.0 [facility] [place] Comment on above: Order Comment: Campu s: M Performed By: #### L 200.49882 ####[place] [address]Ph# [phone] MCV Auto Entitic volume (RBC) 87.9 fL Normal 80.0-99.0 [facility] [place] Comment on above: Order Comment: Campu s: M Performed By: #### L 200.10314 ####[facility] [id number] [place], [place] [address]Ph# [phone] MONO ABS 0.30 K/CU MM Normal 0.1-1.1 [facility] [place] Comment on above: Order Comment: Campu s: M Performed By: #### L 200.01961 ####[facility] [id number] [place], [place] [address]Ph# [phone] Monocytes/100 WBC Auto (Bld) 6.3 % Normal 2-10 [facility] Comment on above: Order Comment: Campu s: M Performed By: #### L 200.85193 ####[facility] ISPGCBBOAC4644 [place], [place] [address]Xq# [phone] NEUTROPHIL ABS 2.90 K/CU MM Normal 2.0-8.3 [facility] Comment on above: Order Comment: Campu s: M Performed By: #### L 200.95856 ####[facility] HWIIHJTIUW4775 [place] [address]Ph# [phone] Neutrophils/100 WBC Auto (Bld) 63.6 % Normal 45-75 [facility] Comment on above: Order Comment: Campu s: M Performed By: #### L 200.74812 ####[facility] [address]AOFHXEHU[address] [place], [place] [address]Ph# [phone] Nucleated RBC/100 WBC Ratio (Bld) 0.0 % Normal Less than 1 [facility] Comment on above: Order Comment: Campu s: M Performed By: #### L 200.08377 ####[facility] [id number] [place], [place] [address]Ph# [phone] Platelet mean volume Auto Entitic volume (Bld) 10.6 fL Normal 9.4-12.4 [facility] Comment on above: Order Comment: Campu s: M Performed By: #### L 200.36618 ####[facility] [id number] [place], [place] [address]Ph# [phone] Platelets Auto #/vol (Bld) 52 K/CU MM Low 150-450 [facility] Comment on above: Order Comment: Campu s: M Result Comment: Conf irmed by slide estimate. Performed By: #### L 200.63169 ####[facility] [id number] [place], [place] [address]Ph# [phone] PLT EST MOD DECREASED Normal [facility] Comment on above: Order Comment: Campu s: M Performed By: #### L 200.45935 ####[facility] LCMHWQPUBO3866 [place], [place] [address]Qr# [phone] POIK 1+ Normal [facility] Comment on above: Order Comment: Campu s: M Performed By: #### L 200.39186 ####[facility] SNSTBYCGGI0736 [place], [place] [address]Cj# [phone] RBC Auto #/vol (Bld) 4.37 M/CU MM Normal 3.90-5.30 [facility] Comment on above: Order Comment: Campu s: M Performed By: #### L 200.02957 ####[facility] FHOLPZLAXN6400 [place], [place] [address]Mb# [phone] WBC Auto #/vol (Bld) 4.6 K/CU MM Normal 4.5-11.0 [facility] Comment on above: Order Comment: Campu s: M Performed By: #### L 200.98374 ####[facility] [address]QOAEUAW[address] [place] [address]Wk# [phone] CHEST PA/AP AND LATERALon CHEST PA/AP AND LATERAL CHEST PA/AP & LATERALOrdering Physician: Jayashree Lewis MD05/03/2018 9:16 AMPA AND LATERAL CHEST:Clinical Statement: Shortness of breath evaluate for pneumoniaComparison: NoneFINDINGS: No focal consolidation, pleural effusion, pneumothorax,pulmonary nodules or pulmonary edema. The cardiac silhouette iswithin normal limits. The osseous structures are unremarkable.IMPRESSION:No acute cardiopulmonary disease. ---- Electronic Signature on File ----Signed By: Sanjiv Nix [email or web address]: 05/03/2018 11:08 AMSigned: 05/03/2018 11:08 AM Reported By: SANJIV NIX M.D. Signed By: SANJIV NIX M.D. [facility] 05-02-2018 CONSULTATION REPORT [facility] Nolberto CR DATE OF CONSULTATION : 05/03/2018REASON FOR CONSULTATION: JEWELL cirrhosis.The patient is a 53-year-old lady history of JEWELL cirrhosis. Has been diagnosedsince January 2017. Has been seen in hepatology service in [facility].According to the patient she has been on transplant list. She had a history ofesophageal varices status post band ligation. Also complains of hepaticencephalopathy and has been on lactulose and Xifaxan. The patient presented to theER yesterday for complaints of worsening mental status. At that time the patient wasfound significantly elevated ammonia level. The patient said she is compliant withmedication intake. No signs of infection. Had a urine test, which showed negativefindings. The patient has no other GI complaints. Repeated ammonia level today was50, close to her baseline.PAST MEDICAL HISTORY: Significant for JEWELL cirrhosis, esophageal varices,encephalopathy.PAST SURGICAL HISTORY: Breast augmentation, cholecystectomy, hysterectomy.FAMILY HISTORY: Noncontributory.SOCIAL HISTORY: Denies alcohol, tobacco or drug abuse.REVIEW OF SYSTEMS: All review of systems is negative except as mentioned in historyof present illness and past medical, surgical history and physical exam.PHYSICAL EXAMINATION:Vital Signs: Reviewed.General Appearance: She is in no acute distress. Eyes are clear, no jaundice.Lungs: Clear to auscultation.Heart: Regular rhythm. No murmur.Abdomen: Soft, no tenderness.IMPRESSION: A 53-year-old lady with history of nonalcoholic steatohepatitiscirrhosis, history of esophageal varices and encephalopathy on lactulose and Xifaxan.Complains of worsening mental status. Blood tests show significantly elevatedammonia level. No signs of an infection. Repeated ammonia level returned tobaseline. No other changes on clinical presentation discussed with the patient. Atthis point since her ammonia level returned to baseline no need for furtherevaluation and treatment. The patient just needs to continue her home medicationcompliant with lactulose and Xifaxan use. At this point needs to be followed by herprevious shelter supervisor service.PLAN:1. The plan for this patient is will continue lactulose and Xifaxan.2. No further GI evaluation is needed. [facility] PATIENT NAME: STEPHANE LOGAN D132Avel Itzel [facility] REC #: [id number], [place] [address] DATE: 05/02/18DISCHARGE DATE: 05/03/18CONSULTATION REPORT ATTENDING PHY: Dominic Logan MD Winniemarquita Krishna Cardenas, MDZX/[id number]: 05/03/2018 10:15DT: 05/03/2018 11:07SSI File#: [id number] #: [id number]/Reviewed by05/04/18 0807 JAYDA [facility] PATIENT NAME: STEPHANE LOGAN D132[facility] MEDICAL REC #: [id number], [place] [address] DATE: 05/02/18DISCHARGE DATE: 05/03/18CONSULTATION REPORT ATTENDING PHY: Dominic Logan MD [facility] 05-02-2018 EMERGENCY PHYSICIAN REPORT This is a preliminary report only, as the practitioner review and authentication has not occurred. [facility] ER PHYSICIAN ASSESSMENT =RECORDS: FlexChartDataEvent Time: 05/02/2018 18:15[facility]: [facility] [[id number]]Atte kezia Dklwhdyyz68 / F / 1965Chart (V2b)Chart created at 05/02/2018 18:10 by Dominic Lemon closed at 05/02/2018 20:24Entry in Emergency Department at 05/02/2018 16:07Patient Name: Stephane Logan Record Number: [id number]: 05/02/2018 18:10Entered Department at: 05/02/2018 16:07 Patient Seen at:05/02/2018 18:08 Decision to Admitat: 05/02/2018 20:24 Historian: Patient PCP: Cl Complaint:STATES LETHARGY X1 WEEK.Triage Note reviewed and Initial Vital Signs reviewed.Temperature: 97.7 F (36.5 C). Pulse: 76. Respiratory Rate:15. Blood-pressure:129/66. Oxygen Saturation: 96%.History of Present Illness:53-Year-old female brought in by family for evaluation ofgeneralized weakness, lethargy and confusion.Patient has a history of JEWELL and is on the transplant listat [place]. She has had problems withhepatic encephalopathy and had just been admitted [facility] 2 weeks ago for elevated ammonialevel. Patient is on lactulose and is staying with familyat this time. Family states that the patient [facility] PATIENT NAME: STEPHANE LOGAN D1320 [facility] [address] Johns MEDICAL REC #: [id number], [place] [address] DEPARTMENT REPORT EMERGENCY DEPARTMENT PHYSICIANhas been taking all her medications as prescribed. Over thepast week though, she is developingincreasing weakness, increasing confusion, forgetfulnessand lethargy. They are concerned that she couldbe developing hepatic encephalopathy again therefore theybrought her in for evaluation. She has no newheadache, blurred vision or double vision. No ear pain orsore throat. Denied any chest pain orpalpitations. No shortness of breath or difficultybreathing. She is having abdominal discomfort but thisis chronic for her no new abdominal pain. She denied anyvomiting or diarrhea. No urinary symptoms.Weakness is generalized not localizing to one side.Review of Systems. Constitutional: positive for Fatigue,negative for Chills or Fever Eyes: negative forEye Pain Ear/Nose/Throat: negative for Earache, Congestionor Sore Throat Cardio-Vascular: negative forPalpitations Skin: negative for Rash Respiratory: negativefor Cough or Dyspnea GI: as noted in the HPIGU: negative for Dysuria, Frequency or UrgencyMusculo-Skeletal: negative for Back Pain or Neck PainNeurological: positive for Confusion and Weakness, negativefor Headache or Numbness Psychological:negative for Stress Hem/Endo: negative for Bleeding,Polyuria or Bruising Immunology: negative for JointPainPast History, Medications, Allergies, Social History andFamily History reviewed in nurses note.Medications: Reviewed RN Note.Allergies: Reviewed RN NoteCompazine(Abnormal Behavior), Phenergan(promethazine)(Abnor mal Behavior), Ativan(Abnormal Behavior)Social History: Reviewed RN Note.Family History: Reviewed RN NotePhysical Examination: General: Alert and Well Developed;Well-developed, well-nourished female. She isawake and alert to person, place and time. Vital signs Mike interpret are stable. HEENT: Normal ENT [facility] PATIENT NAME: STEPHANE LOGAN D13[address] [facility] [address] Johns MEDICAL REC #: [id number], [place] [address] DEPARTMENT REPORT EMERGENCY DEPARTMENT PHYSICIANinspection. Head: Atraumatic. Eyes: Lids Normal;PERRL; EOMI.Ear: Normal auricle, Normal external aud. canal, NormalTympanic Membranes.Nose: Normal inspection, Normal mucose. Oropharynx /Throat: NormalPharynx, Moist mucous membranes. Sclera nonicteric.. Neck:No Lymphadenopathy and Supple Respiratory: NoResp Distress and Normal Breath Sounds Cardio-Vascular: Nomurmur and RRR Abdomen: Patient has discomfortto palpation to all quadrants. She has some voluntaryguarding. The bowel sounds are normal and active.No CVA tenderness is noted. Back: No CVA tenderness andNon-tender Extremity: No edema and Normal Equalpulses; pulses equal upper/ lower extremities. equal leftand right sides. Full range of motion of alljoints. No deformities were noted. No cyanosis, clubbing oredema noted. Neurological: Alert, OrientedX3, Normal Sensation, No Gross Weakness, Speech Normal,Normal DTRs and 5/5 UE/LE Strength Skin: No rash,No Petechiae, Warm and Dry Psychological: Mood/AffectNormal and Normal Memory/JudgmentCBC W/DIFF, information as of 05/02/2018, 6:20 pm87.9/ 13.4 /4.6 andgt;------andlt; 52*/ 38.4 /N:63.6BASO ABS: 0.00 K/Cu Mm; BASOPHIL %: 0.9 %; EOS ABS: 0.10K/Cu Mm; EOSINOPHIL %: 1.5 %; IMMATR GRAN ABS:0.00 K/Cu Mm; IMMATURE GRAN %: 0.2 %; LYMPH %: 27.5 %;LYMPH ABS: 1.30 K/Cu Mm; MCHC: 34.9 Gm/Dl; MONOABS: 0.30 K/Cu Mm; MONOCYTE %: 6.3 %; MPV: 10.6; NEUTROPHILABS: 2.90 K/Cu Mm; NRBC: 0.0 %; PLT EST: ModDecreased; POIK: 1+; RBC: 4.37 M/Cu Mm; RDW: 12.9BMP, information as of 05/02/2018, 7:11 pm141 --------+--------+--------and lt; 172* Anion Gap = 43.7 alert_gap="3"BUN/CREA: 7; CALCIUM TOTAL: 8.0 Mg/DlLIVER, information as of 05/02/2018, 7:11 pmA/G RATIO: 0.9; ALBUMIN: 3.0 Gm/Dl; ALK PHOS: 187 U/L; BILI [facility] PATIENT NAME: STEPHANE LOGAN D13[address] Johns [facility] REC #: [id number], [place] [address] DEPARTMENT REPORT EMERGENCY DEPARTMENT PHYSICIANDIRECT: 0.39 Mg/Dl; BILI TOTAL: 1.0 Mg/Dl;GLOBULIN: 3.5 Gm/Dl; SGOT (AST): 37 U/L; SGPT (ALT): 26Iu/L; TP: 6.5 Gm/DlAMMONIA, information as of 05/02/2018, 7:11 pmAMMONIA: 62.4 Umol/RENAE COMPLETE, information as of 05/02/2018, 7:17 pm+ +------- + + + -----+ +Urobi l 2.0 + +--------- --------+ +-- + ---+ +Prot NEGATIVE + +--------- --------+ +-- + ---+ ++------ + -+ +--------- -------+ +--- ++ -----+ +----- + + + -------+TROPONIN I POC, information as of 05/02/2018, 7:17 pmPOC Trop-I: 0.00Medical Decision MakingOn lab workup, EKG shows no acute changes. Urinalysis wasnegative for leukocytes, nitrites, blood.Troponin came back at 0. Sodium was at 141. Potassium 3.7.Chloride 107 with a CO2 of 30. BUN of 3 with acreatinine 0.48 and a glucose of 172. Ammonia level was upat 62. According to the patient the lastammonia level checked last week was in the 50s. Alk phos isat 187 with a direct bili 0.39 and AST of 37.White count was 4.6 with an Handamp;H of 13 and 38 and aplatelet count of 52. [facility] PATIENT NAME: STEPHANE LOGAN D13[address] [facility] [address] Johns [facility] REC #: [id number], [place] [address] DEPARTMENT REPORT EMERGENCY DEPARTMENT PHYSICIANIt appears that the patient is starting to develop earlyhepatic encephalopathy again with her historyand elevated ammonia level. She is on medication at homeapparently is failing outpatient therapy withher lactulose with a worsening ammonia. With increasedconfusion, lethargy she will require admission thehospital. Case discussed with MTS for admission. Patienthas remained stable being in the EDAdditional Information: Discussed Results, Diagnosis andFollow-Up with Patient.Clinical Impression:1. Early hepatic encephalopathy2. Altered mental status3. History of Nash4. ThrombocytopeniaDisposition: Admitted . Condition: StableMSE completed.I was the primary ED attending.. at20:24===DISCHARGE REPORT===: FlexChartDataEvent Time: 05/02/2018 18:15 DEMO GRAPHICS E mergisoft Patient: STEPHANE LOGANSex: FDOB: 1965Age: 53 yrAccount No: [id number]: [id number] Date: 16:07 05/02/2018Address: [address] [facility] PATIENT NAME: STEPHANE LOGAN D[address] Johns MEDICAL REC #: [id number], [place] [address] DEPARTMENT REPORT EMERGENCY DEPARTMENT PHYSICIANAddress: [place] [address] QQCP STRATION E D Number: [id number]: Marital Status: SFinancial Class: CAIDHMO TR IAGE Prior ity: 3 - UrgentComplaint: WeaknessStated Complaint: STATES LETHARGY X1 WEEK.Arrival Date: 05/02/2018 16:07Triage Date: 05/02/2018 16:07Mode of Arrival: *Privately Owned VehicleWC: NLanguage: EnglishTransport: Ambulatory/Walk In BED==== C33 In: 05/02/2018 17:29:52 05/02/201817:29:52 RSSC33 (Removed From) Out: 05/02/2018 21:29:23107/02/2017 21:29:23 RSS PROVID ERS MD Dominic Zuniga Provider Contact: 05/02/201818:08:08 JBEnd:LOUISE KAY Provider Contact: 05/02/201819:03:41 RSSEnd: [facility] PATIENT NAME: STEPHANE LOGAN D13[address] [facility] [address] Johns MEDICAL REC #: [id number], [place] [address] DEPARTMENT REPORT EMERGENCY DEPARTMENT PHYSICIANTRIAGE HISTORY AL LERGIESAllergic To: Compazine - Abnormal Behavior 05/02/201816:10 TPJAllergic To: Phenergan (promethazine) - AbnormalBehavior 05/02/2018 16:10 TPJAllergic To: Ativan - Abnormal Behavior 05/02/201816:10 TPJILLNESSIllness: Asthma 05/02/2018 16:10 TPJIllness: Migraines 05/02/2018 16:10 TPJIllness: ENLARGED SPLEEN 05/02/2018 16:10 TPJIllness: JEWELL 05/02/2018 16:10 TPJPAST SURGERY HISTSurgery: ROTATOR CUFF 05/02/2018 16:10 TPJSurgery: Breast augmentation. 05/02/2018 16:10 TPJSurgery: Oyzfivmznxhgrfp14/17/2018 16:10 TPJSurgery: Hysterectomy-05/02/2018 16:10 TPJPAST SOCIAL HISTSocial History: Lives with family or significant other05/02/2018 16:10 TPJSocial History: Alcohol - None 05/02/2018 16:10 TPJSocial History: Smoker-None 05/02/2018 16:10 TPJSocial History: Recreational Drugs - None 05/02/201816:10 TPJIMMUNIZATIONSImmunization: Flu Vaccine-yes 05/02/2018 16:10 TPJ [facility] PATIENT NAME: STEPHANE LOGAN D[address] Johns MEDICAL REC #: [id number], [place] [address] DEPARTMENT REPORT EMERGENCY DEPARTMENT PHYSICIAN NURSING ASSESSMENT ASSESSME NT NOTES 04/16 17:45 Patient Aandamp;O x4. Patient statesthat she has had unsteady gait and slurred speech lately.Pt fell but denies hitting her head. She statesthat she feels drunk and wants to sleep all the time.States she has been sleeping 12+ hours a day. Today shestarted having diarrhea and feeling nauseous. Also statesabdominal pain of 7. Bowel sounds active x4. Has only beenable to eat and drink small amounts. Family member statesthat she thinks her ammonia levels are increased becausethe Lactulose isnt working. States she was in a coma lastweek for a day and a half. 05/02/2018 19:50 MRT TREATM ENT 2017 19:19 Staff/ Patient Interaction - Calllight placed within reach. 05/02/2018 19:19 RSS05/02/2018 19:19 Staff/ Patient Interaction -Introduced self and assessed patients needs. 05/02/201819:19 RSS05/02/2018 19:19 Hourly Rounding - Rounding 05/02/201819:19 RSSElimination/Toileting NPain 8Position Comfortable YSafe Environment YFall Risk Change N107/02/2017 20:00 Trauma Time Activation - 3. TraumaEvaluation Called @ 20:00 [facility]05/02/2018 20:22 Physician Call - called at 195305/02/2018 20:22 [facility]07/02/2017 20:22 Physician Call - [facility] PATIENT NAME: STEPHANE LOGAN[address] Johns MEDICAL REC #: [id number], [place] [address] DEPARTMENT REPORT EMERGENCY DEPARTMENT PHYSICIANanswered at 195605/02/2018 20:22 [facility]/02/2017 20:50 Admit/Discharge - Pt/Family voicesunderstanding of admit process 05/02/2018 20:50 [facility]05/02/2018 20:50 Admit/Discharge - Report called louise villanueva 05/02/201820:50 RSS MEDICA TIONS IV =========IV Fluid: B 05/02/2018 19:18 05/02/2018 19:19RSSLine #: 1 Fluid: Saline LockRate: ml/hr Location: antecubital fossa rightNdl Gauge: 20 # Attempts: 1Notes: labs sent, good blood return, fluhes easy I AND O VITALS =========VS-ROUTINE Time: 05/02/2018 16:12B/P: 129/66 - Right Upper Arm - Sitting - MachinePulse: 76 - French Cord Binder Resp: 15Sa02: 96 Room Air Temp: 97.70 F - Oral05/02/2018 16:15 RANVS-Pain Time: 05/02/2018 16:12 05/02/2018 16:15RANVS-GCS Time: 05/02/2018 16:12 Visual: 4 Verbal: 5 Motor:6 GCS Total: 15 05/02/2018 16:15 RANVS-HT/WT Time: 05/02/2018 16:12 Weight: 172 lbs Cdyyig6805/02/2018 16:15 RANVS-Visual Time: 05/02/2018 16:12 05/02/2018 16:15 RANVS-FHT Time: 05/02/2018 16:12 05/02/2018 16:15RANVS-Notes Time: 05/02/2018 16:12 height 55" stated. map92 05/02/2018 16:15 RAN [facility] PATIENT NAME: STEPHANE LOGAN D[address] [facility] [address] Johns [facility] REC #: [id number], [place] [address] DEPARTMENT REPORT EMERGENCY DEPARTMENT PHYSICIANVS-ROUTINE Time: 05/02/2018 20:02 05/02/2018 20:08MRTVS-Pain Time: 05/02/2018 20:02 05/02/2018 20:08MRTVS-GCS Time: 05/02/2018 20:02 05/02/2018 20:08 MRTVS-HT/WT Time: 05/02/2018 20:02 05/02/2018 20:08 MRTVS-Visual Time: 05/02/2018 20:02 05/02/2018 20:08 MRTVS-FHT Time: 05/02/2018 20:02 05/02/2018 20:08MRTVS-Notes Time: 05/02/2018 20:02 MAP 87 05/02/201820:08 MRTVS-ROUTINE Time: 05/02/2018 20:02B/P: 116/67 - Left Upper Arm - Lying - Machine Pulse:74 - Monitor Resp: 18Sa02: 95 Room Air 05/02/2018 20:08 MRTVS-Pain Time: 05/02/2018 20:02 Pain Level: 8107/02/2017 20:08 MRTVS-GCS Time: 05/02/2018 20:02 05/02/2018 20:08 MRTVS-HT/WT Time: 05/02/2018 20:02 05/02/2018 20:08 MRTVS-Visual Time: 05/02/2018 20:02 05/02/2018 20:08 MRTVS-FHT Time: 05/02/2018 20:02 05/02/2018 20:08MRTVS-Notes Time: 05/02/2018 20:02 05/02/2018 20:08 MRTVS-ROUTINE Time: 05/02/2018 20:02 05/02/2018 20:08MRTVS-Pain Time: 05/02/2018 20:02 05/02/2018 20:08MRTVS-GCS Time: 05/02/2018 20:02 Visual: 4 Verbal: 5 Motor:6 GCS Total: 15 05/02/2018 20:08 MRTVS-HT/WT Time: 05/02/2018 20:02 05/02/2018 20:08 MRTVS-Visual Time: 05/02/2018 20:02 05/02/2018 20:08 MRTVS-FHT Time: 05/02/2018 20:02 05/02/2018 20:08MRTVS-Notes Time: 05/02/2018 20:02 MAP 87 05/02/201820:08 MRT ORDERS *Status: Inpatient 05/02/2018 20:27N/AOrdered: 05/02/2018 20:24 By . OtherReviewed: 05/02/2018 20:27 By . Other [facility] PATIENT NAME: STEPHANE LOGAN [address] Johns [facility] REC #: [id number], [place] [address] DEPARTMENT REPORT EMERGENCY DEPARTMENT PHYSICIANEXTERN ORDER: GFRP 05/02/2018 19:39NoneOrdered: 05/02/2018 19:39 Completed Time:05/02/2018 19:39 Results Time: 05/02/2018 19:39EXTERN ORDER: POCTROP 05/02/2018 19:32NoneOrdered: 05/02/2018 19:32 Completed Time:05/02/2018 19:32 Results Time: 05/02/2018 19:32IV hep lock 05/02/2018 19:18N/AOrdered: 05/02/2018 18:17 By Dominic Kenmpletesusanne Time: 05/02/2018 19:18 By Dominic Singh Time: 05/02/2018 19:03 RSSCBC with diff 05/02/2018 19:43N/AOrdered: 05/02/2018 18:17 By Dominic Kenmpletesusanne Time: 05/02/2018 19:43 By Dominic Singh Time: 05/02/2018 19:18 RSSResults Time: 05/02/2018 19:43BMP 05/02/2018 19:39N/AOrdered: 05/02/2018 18:17 By Dominic GordonaCompleted Time: 05/02/2018 19:39 By Dominic Singh Time: 05/02/2018 19:18 RSSResults Time: 05/02/2018 19:39Liver profile 05/02/2018 19:39N/AOrdered: 05/02/2018 18:17 By Dominic GordonaCompletesusanne Time: 05/02/2018 19:39 By Dominic Singh Time: 05/02/2018 19:18 RSSResults Time: 05/02/2018 19:39Ammonia 05/02/2018 19:43N/AOrdered: 05/02/2018 18:17 By Dominic Rodríguez Time: 05/02/2018 19:43 By Dominic Singh Time: 05/02/2018 19:18 RSSResults Time: 05/02/2018 19:43UA ccms (cath if unable to void in 30 mins) 05/02/201819:32 [facility] PATIENT NAME: STEPHANE LOGAN D[address] [facility] [address] Johns MEDICAL REC #: [id number], [place] [address] DEPARTMENT REPORT EMERGENCY DEPARTMENT PHYSICIANN/AOrdered: 05/02/2018 18:17 By Dominic Rodríguez Time: 05/02/2018 19:32 By Dominic Singh Time: 05/02/2018 19:18 RSSQuestion: Lab Urine Specimen TypeAnswer: Clean CatchQuestion: Also Culture, if indicated by UA results (Y or N)Answer: YESResults Time: 05/02/2018 19:35EKG and most recent EKG 05/02/2018 18:33N/AOrdered: 05/02/2018 18:17 By Dominic Rodríguez Time: 05/02/2018 18:33 By Dominic Singh Time: 05/02/2018 18:29 MEMBPOC troponin 05/02/2018 19:18N/AOrdered: 05/02/2018 18:17 By Dominic Singh Time: 05/02/2018 19:18 RSS DISCHA RGE Diagno sis: Early hepatic encephalopathy, Alteredmental status, History of [place], ThrombocytopeniaAdmit to regular bed-MTS11/ 20:24Disposition: Time: 05/02/2018 20:24Discharge Time: 05/02/2018 21:29Type: *Admission to FloorCondition: Stable for admission/discharge/transfera fter emergency evaluation/treatment Category: *NOTAPPLICABLEReferral: 05/02/2018 20:24Admit To: *Bed Type - Med/SurgAdmit Physician: . Other PRES CRIPTIONS CHARGES== ========= [facility] PATIENT NAME: STEPHANE LOGAN D[address] [facility] [address] Johns MEDICAL REC #: [id number], [place] [address] DEPARTMENT REPORT EMERGENCY DEPARTMENT PHYSICIANSIGNATURE =========Dominic CANO [facility] PATIENT NAME: STEPHANE LOGAN [address] Johns MEDICAL REC #: [id number], [place] [address] DEPARTMENT REPORT EMERGENCY DEPARTMENT PHYSICIAN Normal [facility] GFR ESTon 05-02-2018 IF AMER Greater than [address] [facility] Comment on above: Order Comment: Campu s: M Performed By: #### L 500.69153, L500.52068, L500.73419 ####[facility] [id number] [place], [place] [address]Yd# [phone] IF non-AFR AMER Greater than [address] [facility] Comment on above: Order Comment: Campu s: M Performed By: #### L 500.51122, L500.52140, L500.09352 ####[facility] [id number] [place], [place] [address]Xq# [phone] HP.IMS.ADMon 05-02-2018 Admission-H&P Normal [facility] HP.IMS.ADM [facility] Patient Name: STEPHANE LOGAN D10 [facility] Date of : [address] [address] Unit Number: [id number] Number: [id number] Patient Status: ADM INAttending Doctor: Dominic Logan MDService Date: 05/02/182115History of Present IllnessSource of Information PatientChief Complaint/Present Illness:I have not been feeling myself for the past week.History of Present IllnessPCP: Dr. Anna Jauregui.Set Decorator: Dr. Carlson.Patient is a 53-year-old female with a past medical history significant forstage IV liver cirrhosis diagnosed in January 2017 secondary to JEWELL (currently on [facility]), history of migraineheadaches, seizures with last seizure being 3 months ago and esophageal varices statuspost banding presented to [facility] ER complaining of lethargy. Most of the information wasobtained from the patient. Patient is a resident of [place], [place] however, for the pastweek, she is been staying with her niece in town. Patient reported that she has not beenfeeling herself for the past week. She complained of increasing sleepiness, feelinglethargic and weak as well as confused. Patient reported that she unfortunately lost herbalance a few days ago and fell. Patient denied any trauma to the head. Of note, [facility]. She reportedthat her ammonia level during the admission was 110. Patient stated that her baselineammonia is around 50. Her last ammonia was checked a week ago and it was 55. Patientreported she does have history of medication noncompliance, especially when it comes totaking her lactulose, however for the past 2 weeks, she's been taking her medication asprescribed. Patient denied any headache, changes in vision, chest pain or shortness ofbreath. However, she did report a history of loose bowel movements secondary increasingher dose of lactulose. Patient reported her diarrhea has improved and her last bowelmovement was formed stool. Patient denied any abdominal pain. Additionally, patient wascomplaining of right sided back pain. Patient reported that her back pain started 2 daysago. Patient described the pain as sharp, nonradiating, worse with movement, 7 out of 10intensity, constant, without any alleviating or aggravating factors.In the emergency room, patient's vital signs showed a BP 129/66, HR 76, RR 15, SaO2 96%room air, T 97.7F.Initial laboratory data showed a normal CBC except for chronic, cytopenia platelet count52. BMP was within normal limits with normal creatinine 0.486. Direct bilirubin 0.39,total bilirubin 1.0. AST 37, ALT 26, ALP 187. Total protein 6.5. Ammonia level 62.4 (baseline ammonia level around 50). UA did not show any signs of infection.Given patient presenting illness, [facility] was contacted prompting hospital admission.Past Medical/Surgical HxPast Medical History1. Stage IV liver cirrhosis secondary to JEWELL (2006).2. History of migraine headaches.3. History of seizure disorder.4. History of esophageal varices status post banding.Past Surgical History1. History of breast augmentation.2. History of cholecystectomy.3. History of hysterectomy.Family/Social HistorySubstancesDenies use of: Alcohol, Tobacco, Recreational Drugs.Allergies/Home MedicationsAllergiesCoded Allergies:LORAZEPAM (From ATIVAN) (Severe, ANXIETY 05/02/18)PROCHLORPERAZINE (From COMPAZINE) (Severe, ANXIETY 05/02/18)PROMETHAZINE (From PHENERGAN) (Severe, ANXIETY 05/02/18)Home MedicationsAlbuterol Sulfate (Proair Hfa Inhaler) 8.5 GM HFA.AER.AD 2 PUFF INH Q2HPRN PRNWHEEZING, Ref 0 (Reported)Entered as Reported by TODD LIRA on 05/02/182341Last Action: Continued on 05/02/182352 by JOHN PRASAD PcarBAMazepine* (Tegretol 200MG Tab*) 200 MG TABLET 200 MG PO QHS, Ref 0 (Reported)Entered as Reported by TODD LIRA on 05/02/182337Last Action: Continued on 05/02/182353 by JOHN PRASAD PCitalopram Hydrobromide* (celeXA TAB*) 40 MG TABLET 40 MG PO QHS, Ref 0 (Reported)Entered as Reported by TODD LIRA on 05/02/182339Last Action: Continued on 05/02/182353 by JOHN PRASAD PclonazePAM* (Klonopin Tab*) 1 MG TABLET 1 MG PO BID, Ref 0 (Reported)Entered as Reported by TODD LIRA on 05/02/182343Last Action: Continued on 05/02/182353 by JOHN PRASAD PLactulose Oral Liquid* (Cephulac Oral Liquid*) 20 GM/30 ML SOLUTION 30 ML PO BID, Ref 0(Reported)Entered as Reported by TODD LIRA on 05/02/182342Last Action: Continued on 05/02/182353 by JOHN PRASAD PLinaclotide (Linzess) 145 MCG CAPSULE 145 MCG PO QHS, Ref 0 (Reported)Entered as Reported by TODD LIRA on 05/02/182343Last Action: Reviewed on 05/02/182345 by TODD LIRAMetoclopramide HCl* (Reglan*) 5 MG TABLET 5 MG PO Q6H, Ref 0 (Reported)Entered as Reported by TODD LIRA on 05/02/182344Last Action: Continued on 05/02/182354 by JOHN PRASAD PMometasone/Formoterol (Dulera 200 Mcg/5 Mcg Inhaler) 13 GM HFA.AER.AD 2 PUFF INH QHS, Ref 0 (Reported)Entered as Reported by TODD LRIA on 05/02/182339Last Action: Continued on 05/02/182354 by JOHN PRASAD POmeprazole (PrilOSEC TAB) 20 MG TABLET.DR 20 MG PO QHS, Ref 0 (Reported)Entered as Reported by TODD LIRA on 05/02/182344Last Action: Continued on 05/02/182354 by JOHN PRASAD POndansetron HCl* (Zofran 4MG Tab*) 4 MG TABLET 4 MG PO Q8HPRN PRN NAUSEA, Ref 0 (Reported)Entered as Reported by TODD LIRA on 05/02/182336Last Action: Continued on 05/02/182354 by JOHN PRASAD PRifAXIMin* (Xifaxan 550 MG Tab*) 550 MG TABLET 550 MG PO QHS, Ref 0 (Reported)Entered as Reported by TODD LIRA on 05/02/182341Last Action: Continued on 05/02/182352 by JOHN PRASAD PSUMAtriptan* (Imitrex Tab*) 100 MG TABLET 100 MG PO BIDPRN PRN Migraine headache, Ref 0(Reported)MAXIMUM OF 200MG/24HR.Entered as Reported by TODD LIRA on 05/02/182338Last Action: Held on 05/02/182353 by JOHN PRASAD PReview of SystemsConstitutionalReports: Fatigue, Weakness. Denies: Fever, Chills, Malaise, Sick Contacts.EENTDenies: Vision Change, Sore Throat, Dysphagia, Odynophagia.CardiovascularDen ies: Chest Pain, Pain on Exertion, Dyspnea on Exertion, Palpitations, Syncope.PulmonaryDenies: Dyspnea, Cough.GastrointestinalReports : Nausea, Diarrhea. Denies: Abdominal Pain, Vomiting, Constipation, Loss ofAppetite, Hematochezia, Melena.GenitourinaryDenies: Dysuria, Hematuria.MusculoskeletalRepo rts: Joint Pain, Back Pain.SkinDenies: Rash.LymphaticDenies: Enlarged Lymph Nodes.EndocrineDenies: Cold Intolerance, Heat Intolerance.NeuroReports: Weakness, Tingling. Denies: Headache, Syncope, Dizziness, Vertigo, Numbness.PsychiatricDenies: Depression, Anxiety.Physical ExamVital SignsBP 129/66, HR 76, RR 15, SaO2 96% room air, T 97.7F.Physical Exam SummaryGeneral: Patient is alert and oriented x3 and is in no acute respiratory distress. Pt. issitting comfortably in bed with no signs of physical or respiratory distress.HEENT: Head is normocephalic, atraumatic.PERRLA. Intact EOM. Dry mucous membrane.Neck: Supple. No JVD.Cardiac: Chest is symmetrical. Non-tender to palpation. Regular rhythm and rate, S1-R8ltbrew normal limits, no murmurs, gallops were appreciated, no rubs.Lungs: Pt. on room air. Clear to auscultation bilaterally, no wheezing, rales, or rhonchi.Abdomen: Soft, nontender, nondistended to palpation. Positive bowel sounds. Hepatomegaly.Extremities: No edema, cyanosis, or clubbing.Skin: No rashes or breakdown.Lymphatic: Negative cervical, supra-clavicular lymphadenopathy.Neurologic: No focal neurological deficits. Patient follows all commands.Psychiatry: Affect congruent with mood.Conclusion / PlanConclusion1. Hepatic encephalopathyPatient presented [facility] complaining of feeling lethargic. Patient reported that sheis been feeling worse over the past week. Patient was recently hospitalized for hepaticand cephalopathy with ammonia level 110. Patient reported that her baseline ammonia levelis around 50. Upon presentation to [facility], initial laboratory data showed an ammonialevel of 62.4. Last ammonia level reported by the patient was checked last week and itwas 55. Patient reported that for the past 2 days, she has increased her intake oflactulose. Given patient's presenting illness of encephalopathy secondary tohyperammonemia in the setting of stage IV liver cirrhosis, patient will be admitted to [facility] for further evaluation.-Patient is AAOx3 and follows all commands. She is hemodynamically stable.-Resume patient's Lactulose dose of 30 mg p.o. twice daily.-Resume Rifaximin 550 mg at bedtime.-Repeat ammonia level in the morning.2. HyperammonemiaInitial laboratory data showed ammonia level 62.4. Patient reported that her baselineammonia level is around 50. Patient is awake alert and oriented. Patient does follow allcommands.-Resume Lactulose 30 mg twice daily and Rifaximin 550 mg daily.-Repeat ammonia level in the morning.3. Liver cirrhosis secondary to NASHMELD Score: 10 with 6% estimated 3 month mortality.Patient is on liver transplant waiting list at the [facility]Order CT Abdomen for further evaluation.4. ThrombocytopeniaInitial laboratory data showed a platelet count 52. Patient reported that she does have ahistory of chronic thrombocytopenia. This is most likely secondary to her livercirrhosis. Patient denied any active bleeding at this time.-Repeat CBC in the morning.5. Seizure disorderLast reported seizure by patient was over 3 months ago.-Continue current medical management with Carbamazepine 200 mg at bedtime.6. Migraine headacheContinue current medical management with Sumatriptan Succinate 100 mg oral twice daily asneeded for migraine symptoms.7. DVT prophylaxisSCDs.8. Full code statusCollaborating PhysicianDominic Logan MDExpected Stay 2 days or lessDisclaimerThis dictation was created using voice recognition software.Phonetic and/or minor grammatical errors may exist.eSign Date and TimeFribourJohn cortez MD Verified/Reviewed by 05/02/18 [id number] Logan MD Normal [facility] 05-02-2018 Albumin mass conc 3.0 g/dL Low 3.2-5.0 [facility] Comment on above: Order Comment: Paige hussein: M Performed By: #### L 500.68673, L500.09587, L500.99045 ####[facility] [id number] [place], [place] [address]Pn# [phone] Albumin/Globulin mass ratio 0.9 {ratio} Normal 0.8-2.0 [facility] Comment on above: Order Comment: Campu s: M Performed By: #### L 500.95063, L500.22822, L500.88407 ####[facility] [id number] [place], [place] [address]Mx# [phone] ALK PHOS 187 U/L High 45-117 [facility] Comment on above: Order Comment: Campu s: M Performed By: #### L 500.99381, L500.50752, L500.11499 ####[facility] [id number] [place], [place] [address]Wk# [phone] ALT enzyme act/vol 26 U/L Normal 13-61 [facility] Comment on above: Order Comment: Campu s: M Result Comment: RESU LTS MAY BE FALSELY DEPRESSED AFTER THE ADMINISTRATION OFSULFASALAZINE AND/OR SULFAPYRIDINE. Performed By: #### L 500.19932, L500.46879, L500.55881 ####[facility] [id number] [place], [place] [address]Ra# [phone] BILI DIRECT 0.39 MG/DL High 0.00-0.20 [facility] Comment on above: Order Comment: Campu s: M Performed By: #### L 500.96706, L500.49684, L500.57909 ####[facility] [id number] [place], [place] [address]Yn# [phone] BILI TOTAL 1.0 MG/DL Normal 0.2-1.0 [facility] Comment on above: Order Comment: Campu s: M Performed By: #### L 500.60047, L500.53150, L500.69314 ####[facility] [id number] [place], [place] [address]Jf# [phone] Globulin Calculated mass conc (S) 3.5 g/dL Normal 2.2-4.2 [facility] Comment on above: Order Comment: Campu s: M Performed By: #### L 500.70345, L500.11820, L500.37982 ####[facility] [id number] [place], [place] [address]Nl# [phone] Protein mass conc 6.5 g/dL Normal 6.0-8.5 [facility] Comment on above: Order Comment: Senthilu s: M Performed By: #### L 500.85137, L500.41499, L500.67757 ####[facility] [id number] [place], [place] [address]Jf# [phone] SGOT (AST) 37 U/L High 8-34 [facility] Comment on above: Order Comment: Campu s: M Result Comment: RESU LTS MAY BE FALSELY DEPRESSED AFTER THE ADMINISTRATION OFSULFASALAZINE AND/OR SULFAPYRIDINE. Performed By: #### L 500.51503, L500.26603, L500.44019 ####[facility] [id number] [place], [place] [address]On# [phone] TROPONIN I POCon 05-02-2018 Troponin I.cardiac mass conc 0.00 ng/mL Normal 0.0-0.06 [facility] Comment on above: Result Comment: 0.0 - 0.06 NG/ML - NON-DIAGNOSTIC (REFERENCE RANGE)0.07 - 0.59 NG/ML - INDETERMINATEGreater than or equal to 0.6 NG/ML - INDICATIVE OFMYOCARDIAL DAMAGE UA COMPLETEon 05-02-2018 UA UROBILINOGEN 2.0 MG/DL Normal NORMAL [facility] Comment on above: Order Comment: Senthilu s: M Result Comment: 04/16: UA UROBILINOGEN previously reported as: 4.0 Performed By: #### L 600.65716 ####[facility] [id number] [place], [place] [address]Je# [phone] Color Nom (U) Yellow Normal [facility] Comment on above: Order Comment: Paige s: M Performed By: #### L 600.06678 ####[facility] [id number] [place], [place] [address]Qm# [phone] Glucose mass conc (U) 500 mg/dL Normal [facility] Comment on above: Order Comment: Campu s: M Performed By: #### L 600.36955 ####[facility] [id number] [place], [place] [address]Ld# [phone] UA APPEARANCE Hazy Normal CLEAR [facility] Comment on above: Order Comment: Campu s: M Performed By: #### L 600.71401 ####[facility] [id number] [place] [address]Cz# [phone] UA BILIRUBIN Negative Normal [facility] Comment on above: Order Comment: Campu s: M Performed By: #### L 600.31451 ####[facility] [id number] [place] [address]Tj# [phone] UA BLOOD Negative Normal NEGATIVE [facility] Comment on above: Order Comment: Campu s: M Performed By: #### L 600.50957 ####[facility] [id number] [place] [address]Pf# [phone] UA KETONE Negative Normal [facility] Comment on above: Order Comment: Campu s: M Performed By: #### L 600.81701 ####[facility] [id number] [place] [address]It# [phone] UA LK ESTERASE Negative Normal NEGATIVE [facility] Comment on above: Order Comment: Campu s: M Performed By: #### L 600.54450 ####[facility] [id number] [place] [address]Th# [phone] UA NITRITE Negative Normal NEGATIVE [facility] Comment on above: Order Comment: Campu s: M Performed By: #### L 600.10016 ####[facility] [id number] [place] [address]Wx# [phone] UA PH 6.0 Normal [facility] Comment on above: Order Comment: Campu s: M Performed By: #### L 600.10397 ####[facility] [id number] [place] [address]Fg# [phone] UA PROTEIN Negative Normal NEGATIVE [facility] Comment on above: Order Comment: Senthilu s: M Performed By: #### L 600.77229 ####[facility] [id number] [place], [place] [address]Sq# [phone] UA SPEC GRAV 1.018 Normal 1.005-1.03 0 [facility] Comment on above: Order Comment: Senthilu s: M Performed By: #### L 600.95380 ####[facility] [id number] [place], [place] [address]Ex# [phone] US LIVERon 05-02-2018 US LIVER US LIVEROrdering Enmanuel zamorano: John Prasad MD05/03/2018 6:00 AMULTRASOUND OF THE LIVERClinical Statement: Liver cirrhosisComparison: NoneFINDINGS: The distal body and tail of the pancreas are obscured bybowel gas. Remaining pancreas is not enlarged.The liver is visualized intercostally limiting detail. Liver isnonenlarged. There is diffuse heterogeneous increased parenchymalechogenicity consistent with steatosis and or changes of chronic liverdisease. Contour shows minimal nodularity. No focal mass or ductdilatation is shown.Common duct is upper normal caliber at 7 mm.Gallbladder surgically absent.IMPRESSION:Nonenlarged heterogeneous increased echogenic liver consistent withsteatosis and or changes of chronic liver disease. Question cirrhoticcontour. Correlation with elastography suggested ---- Electronic Signature on File ----Signed By: Yani Edouard [email or web address]: 05/03/2018 11:50 AMSigned: 05/03/2018 11:51 AM Reported By: YANI EDOUARD M.D. Signed By: YANI EDOUARD M.D. Normal [facility] US ABDOMEN COMPLETEon 2016 US ABDOMEN COMPLETE ORIGINALUS ABDOMEN C OMPLETE CLINICAL STATEMENT: R16.0 HEPATOMEGALY, NOT ELSEWHERE CLASSIFIED/nausea and vomiting x2 weeks/right upper quadrant pain x1 year/bloating, belching, diarrhea, constipation, extreme fatigue. COMPARISON: CT 06/23/2014 FINDINGS: The liver is not significantly enlarged. Its echogenicity is within normal limits. No focal lesions are seen. Mild diffuse fatty infiltration is not excluded.. There is no intra or extrahepatic bile duct dilatation. The common duct is 3.3 mm at the clare hepatis. The gallbladder is surgically absent. The visualized pancreas is unremarkable. The spleen is mildly enlarged measuring 16.5 x 6.8 x 5.8 cm, with normal echogenicity. No ascites. The visualized kidneys are normal in size and show no pelvicaliectasis. The visualized abdominal aorta and IVC are normal in caliber. IMPRESSION:There is mild splenomegaly that is present on the previous CT also. The liver is not enlarged. Mild fatty infiltration is not excluded. I have personally reviewed the images of this examination and agree with the resident's findings and interpretation. Interpreted By: Ismael Johnsonreliminary Report By: Sheyla Jones MDElectronically Signed By: Ismael Johnson MD Dictated Date: 12/20/2016 11:30:43 AM Prelim Date: 12/20/2016 11:36:19 AM Sign Date: 12/20/2016 3:49:34 PM Normal [facility] CBC (AO)on 12-18-2016 Basophils Auto #/vol (Bld) 0.00 10 3/mcL Normal 0.00-0.19 [facility] Comment on above: Performed By: #### C BCO ####[address] [address] Basophils/100 WBC Auto (Bld) 0.6 % Normal 0.0-2.5 [facility] Comment on above: Performed By: #### C BCO ####[address] [address] Eosinophils 0.10 10 3/mcL Normal 0.00-0.40 [facility] Comment on above: Performed By: #### C BCO ####[address] [address] Eosinophils/100 leukocytes 0.9 % Normal 0.0-7.0 [facility] Comment on above: Performed By: #### C BCO ####[address] [address] Erythrocyte distribution width Auto Ratio (RBC) 14.6 % High 11.5-14.5 [facility] Comment on above: Performed By: #### C BCO ####[address] [address] Erythrocytes (RBC) 5.01 10 6/mcL Normal 4.20-5.40 [facility] Comment on above: Performed By: #### C BCO ####[address] [address] Hematocrit (HCT) 43.2 % Normal 37.0-47.0 [facility] Comment on above: Performed By: #### C BCO ####[address] [address] Hemoglobin mass conc (Bld) 15.0 G/dL Normal 12.0-16.0 [facility] Comment on above: Performed By: #### C BCO ####[address] [address] Lymphocytes 1.80 10 3/mcL Normal 0.77-3.85 [facility] Comment on above: Performed By: #### C BCO ####[address] [address] Lymphocytes/100 leukocytes 28.0 % Normal 10.0-50.0 [facility] Comment on above: Performed By: #### C BCO ####[address] [address] MCH 30.0 pg Normal 27.0-31.2 [facility] Comment on above: Performed By: #### C BCO ####[address] [address] MCHC mass conc (RBC) 34.8 G/dL Normal 33.0-37.0 [facility] Comment on above: Performed By: #### C BCO ####[address] [address] MCV 86.2 fL Normal 80.0-94.0 [facility] Comment on above: Performed By: #### C BCO ####[address] [address] Monocytes 0.40 10 3/mcL Normal 0.15-1.00 [facility] Comment on above: Performed By: #### C BCO ####[address] [address] Monocytes/100 leukocytes 6.3 % Normal 1.7-13.0 [facility] Comment on above: Performed By: #### C BCO ####[address] [address] Neutrophils 4.10 10 3/mcL Normal 2.85-6.16 [facility] Comment on above: Performed By: #### C BCO ####[address] [address] Neutrophils/100 WBC Auto (Bld) 64.2 % Normal 37.0-80.0 [facility] Comment on above: Performed By: #### C BCO ####[address] [address] Platelet mean volume (PMV) 8.4 fL Normal 7.4-10.4 [facility] Comment on above: Performed By: #### C BCO ####[address] [address] Platelets 81 10 3/mcL Low 130-400 [facility] Comment on above: Performed By: #### C BCO ####[address] [address] WBC (Leukocytes) 6.30 10 3/mcL Normal 4.60-10.80 [facility] Comment on above: Performed By: #### C BCO ####[address] [address] Culture, urine Bacteria identified Cx Nom (U) Positive [facility] Work Phone: Bacteria identified Cx Nom (U) Culture exhibits no [facility]. [facility]: Vital Signs Date Time Vital Sign Value Performing Clinician Facility 10-11-2024 11:11-0400 Body mass index (BMI) [Ratio] 24.12 kg/m2 Ranjan Holland DICE DEALER-[employer] EXTENSION EDUCATOR Work Phone: [facility] 10-11-2024 11:11-0400 Body temperature 98.71 [degF] Ranjan Holland DICE DEALER-[employer] EXTENSION EDUCATOR Work Phone: [facility] 10-11-2024 11:11-0400 Body weight 63.73 kg Ranjan Holland DICE DEALER-[employer] EXTENSION EDUCATOR Work Phone: [facility] 10-11-2024 11:11-0400 Diastolic blood pressure 78 mm[Hg] Ranjan Holland DICE DEALER-[employer] EXTENSION EDUCATOR Work Phone: [facility] 10-11-2024 11:11-0400 Heart rate 77 /min Ranjan Holland DICE DEALER-[employer]OURCES EXTENSION EDUCATOR Work Phone: [facility] 10-11-2024 11:11-0400 Respiratory rate 18 /min Ranjan Holland DICE DEALER-[employer]OURCES EXTENSION EDUCATOR Work Phone: [facility] 10-11-2024 11:11-0400 SaO2% (BldA) [Mass fraction] 98 % Ranjan Holland DICE DEALER-[employer]OURCES EXTENSION EDUCATOR Work Phone: [facility] 10-11-2024 11:11-0400 Systolic blood pressure 143 mm[Hg] Ranjan Holland DICE DEALER-[employer] EXTENSION EDUCATOR Work Phone: [facility] 09-17-2024 10:15-0400 Diastolic blood pressure 83 mm[Hg] Velma Julien MD Work Phone: [facility] 09-17-2024 10:15-0400 Heart rate 89 /min Velma Julien MD Work Phone: [facility] 09-17-2024 10:15-0400 Respiratory rate 16 /min Velma Julien MD Work Phone: [facility] 09-17-2024 10:15-0400 SaO2% (BldA) [Mass fraction] 96 % Velma Julien MD Work Phone: [facility] 09-17-2024 10:15-0400 Systolic blood pressure 160 mm[Hg] Velma Julien MD Work Phone: [facility] 09-17-2024 08:09-0400 Body temperature 98.01 [degF] Velma Julien MD Work Phone: [facility] 09-15-2024 05:31-0400 Body height 162.6 cm Velma Julien MD Work Phone: [facility] 09-15-2024 05:31-0400 Body mass index (BMI) [Ratio] 24.19 kg/m2 Velma Julien MD Work Phone: [facility] 09-15-2024 05:31-0400 Body weight 63.91 kg Velma Juilen MD Work Phone: [facility] 08-25-2024 11:43-0400 Body height 162.6 cm Roe Densel DICE DEALER-[employer] EXTENSION EDUCATOR Work Phone: [facility] 08-25-2024 11:43-0400 Body mass index (BMI) [Ratio] 25.75 kg/m2 Roe Densel DICE DEALER-[employer] RES[employer] EXTENSION EDUCATOR Work Phone: [facility] 08-25-2024 11:43-0400 Body temperature 98.4 [degF] Roe Densel DICE DEALER-[employer] EXTENSION EDUCATOR Work Phone: [facility] 08-25-2024 11:43-0400 Body weight 68.04 kg Roe Densel DICE DEALER-[employer]OURCES EXTENSION EDUCATOR Work Phone: [facility] 08-25-2024 11:43-0400 Diastolic blood pressure 68 mm[Hg] Roe Kolbl DICE DEALER-NAT[employer] RESOURCES EXTENSION EDUCATOR Work Phone: [facility] 08-25-2024 11:43-0400 Heart rate 88 /min Roe Kolbl DICE DEALER-[employer]OURCES EXTENSION EDUCATOR Work Phone: [facility] 08-25-2024 11:43-0400 Respiratory rate 18 /min Roe Kolbl DICE DEALER-[employer] RESOURCES EXTENSION EDUCATOR Work Phone: [facility] 08-25-2024 11:43-0400 SaO2% (BldA) [Mass fraction] 99 % Roe Kolbl DICE DEALER-[employer] RESOURCES EXTENSION EDUCATOR Work Phone: [facility] 08-25-2024 11:43-0400 Systolic blood pressure 106 mm[Hg] Roe Kolbl DICE DEALER-[employer] RESOURCES EXTENSION EDUCATOR Work Phone: [facility] 05-15-2022 11:38-0500 Heart rate 117 /min Dr. Geeta Odell Work Phone: [facility] 05-15-2022 11:29-0500 Body height 162.[address] Geeta Odell Work Phone: [facility] 05-15-2022 11:29-0500 Body mass index (BMI) [Ratio] 26.2 kg/m2 Dr. Geeta Odell Work Phone: [facility] 05-15-2022 11:29-0500 Body temperature 98.4 [degF] Dr. Geeta Odell Work Phone: [facility] 05-15-2022 11:29-0500 Body weight 69.[address] Geeta Odell Work Phone: [facility] 05-15-2022 11:29-0500 Diastolic blood pressure 94 mm[Hg] Dr. Geeta Odell Work Phone: [facility] 05-15-2022 11:29-0500 Respiratory rate 18 /min Dr. Geeta Odell Work Phone: [facility] 05-15-2022 11:29-0500 Systolic blood pressure 128 mm[Hg] Dr. Geeta Odell Work Phone: [facility] 03-12-2022 15:31-0400 Body height 162.[address] Geeta Odell Work Phone: [facility] Work Phone: 03-12-2022 15:31-0400 Body mass index (BMI) [Ratio] 27.5 kg/m2 Dr. Geeta Odell Work Phone: [facility] 03-12-2022 15:31-0400 Body temperature 98.9 [degF] Dr. Geeta Odell Work Phone: [facility] 03-12-2022 15:31-0400 Body weight 72.[address] Geeta Odell Work Phone: [facility] 03-12-2022 15:31-0400 Diastolic blood pressure 98 mm[Hg] Dr. Geeta Odell Work Phone: [facility] 03-12-2022 15:31-0400 Heart rate 108 /min Dr. Geeta Odell Work Phone: [facility] 03-12-2022 15:31-0400 Respiratory rate 16 /min Dr. Geeta Odell Work Phone: [facility] 03-12-2022 15:31-0400 SaO2% (BldA) [Mass fraction] 99 % Dr. Geeta Odell Work Phone: [facility] 03-12-2022 15:31-0400 Systolic blood pressure 142 mm[Hg] Dr. Geeta Odell Work Phone: [facility] 03-07-2022 14:46-0400 Body mass index (BMI) [Ratio] 27.5 kg/m2 Dr. Geeta Odell Work Phone: [facility] 03-07-2022 14:46-0400 Body weight 72.[address] Geeta Odell Work Phone: [facility] 11-28-2021 23:14-0400 Body height 162.[address] Geeta Odell Work Phone: [facility] Work Phone: 11-28-2021 23:14-0400 Body mass index (BMI) [Ratio] 28.6 kg/m2 Dr. Geeta Odell Work Phone: [facility] Work Phone: 11-28-2021 23:14-0400 Body temperature 97.3 [degF] Dr. Geeta Odell Work Phone: [facility] Work Phone: 11-28-2021 23:14-0400 Body weight 75.[address] Geeta Odell Work Phone: [facility] Work Phone: 11-28-2021 23:14-0400 Diastolic blood pressure 99 mm[Hg] Dr. Geeta Odell Work Phone: [facility] Work Phone: 11-28-2021 23:14-0400 Heart rate 90 /min Dr. Geeta Odell Work Phone: [facility] Work Phone: 11-28-2021 23:14-0400 Respiratory rate 18 /min Dr. Geeta Odell Work Phone: [facility] Work Phone: 11-28-2021 23:14-0400 SaO2% (BldA) [Mass fraction] 98 % Dr. Geeta Odell Work Phone: [facility] Work Phone: 11-28-2021 23:14-0400 Systolic blood pressure 149 mm[Hg] Dr. Geeta Odell Work Phone: [facility] Work Phone: 11-27-2021 13:51-0400 Body temperature 97.6 [degF] Dr. Geeta Odell Work Phone: [facility] Work Phone: 11-27-2021 13:51-0400 Diastolic blood pressure 80 mm[Hg] Dr. Geeta Odell Work Phone: [facility] Work Phone: 11-27-2021 13:51-0400 Heart rate 82 /min Dr. Geeta Odell Work Phone: [facility] Work Phone: 11-27-2021 13:51-0400 Respiratory rate 16 /min Dr. Geeta Odell Work Phone: [facility] Work Phone: 11-27-2021 13:51-0400 SaO2% (BldA) [Mass fraction] 98 % Dr. Geeta Odell Work Phone: [facility] Work Phone: 11-27-2021 13:51-0400 Systolic blood pressure 126 mm[Hg] Dr. Geeta Odell Work Phone: [facility] Work Phone: 11-27-2021 12:27-0400 Body height 162.[address] Geeta Odell Work Phone: [facility] Work Phone: 11-27-2021 12:27-0400 Body mass index (BMI) [Ratio] 28.6 kg/m2 Dr. Geeta Odell Work Phone: [facility] Work Phone: 11-27-2021 12:27-0400 Body weight 75.[address] Geeta Odell Work Phone: [facility] Work Phone: 11-21-2021 05:32-0400 Diastolic blood pressure 83 mm[Hg] Dr. Geeta Odell Work Phone: [facility] Work Phone: 11-21-2021 05:32-0400 Heart rate 94 /min Dr. Geeta Odell Work Phone: [facility] Work Phone: 11-21-2021 05:32-0400 Respiratory rate 14 /min Dr. Geeta Odell Work Phone: [facility] Work Phone: 11-21-2021 05:32-0400 SaO2% (BldA) [Mass fraction] 96 % Dr. Geeta Odell Work Phone: [facility] Work Phone: 11-21-2021 05:32-0400 Systolic blood pressure 134 mm[Hg] Dr. Geeta Odell Work Phone: [facility] Work Phone: 11-21-2021 03:00-0400 Body height 162.[address] Geeta Odell Work Phone: [facility] Work Phone: 11-21-2021 03:00-0400 Body mass index (BMI) [Ratio] 29.6 kg/m2 Dr. Geeta Odell Work Phone: [facility] Work Phone: 11-21-2021 03:00-0400 Body temperature 97 [degF] Dr. Geeta Odell Work Phone: [facility] Work Phone: 11-21-2021 03:00-0400 Body weight 78.[address] Geeta Odell Work Phone: [facility] Work Phone: 11-01-2021 14:40-0400 Body mass index (BMI) [Ratio] 28.8 kg/m2 Dr. Geeta Odell Work Phone: [facility] Work Phone: 11-01-2021 14:40-0400 Body temperature 98.6 [degF] Dr. Geeta Odell Work Phone: [facility] Work Phone: 11-01-2021 14:40-0400 Body weight 76.[address] Geeta Odell Work Phone: [facility] Work Phone: 11-01-2021 14:40-0400 Diastolic blood pressure 74 mm[Hg] Dr. Geeta Odell Work Phone: [facility] Work Phone: 11-01-2021 14:40-0400 Heart rate 99 /min Dr. Geeta Odell Work Phone: [facility] Work Phone: 11-01-2021 14:40-0400 Respiratory rate 20 /min Dr. Geeta Odell Work Phone: [facility] Work Phone: 11-01-2021 14:40-0400 SaO2% (BldA) [Mass fraction] 99 % Dr. Geeta Odell Work Phone: [facility] Work Phone: 11-01-2021 14:40-0400 Systolic blood pressure 136 mm[Hg] Dr. Geeta Odell Work Phone: [facility] Work Phone: 11-01-2021 14:40-0400 Body height 162.[address] Geeta Odell Work Phone: [facility] Work Phone: 11-01-2021 14:40-0400 Body mass index (BMI) [Ratio] 28.8 kg/m2 Dr. Geeta Odell Work Phone: [facility] Work Phone: 11-01-2021 14:40-0400 Body temperature 98.6 [degF] Dr. Geeta Odell Work Phone: [facility] Work Phone: 11-01-2021 14:40-0400 Body weight 76.[address] Geeta Odell Work Phone: [facility] Work Phone: 11-01-2021 14:40-0400 Diastolic blood pressure 74 mm[Hg] Dr. Geeta Odell Work Phone: [facility] Work Phone: 11-01-2021 14:40-0400 Heart rate 99 /min Dr. Geeta Odell Work Phone: [facility] Work Phone: 11-01-2021 14:40-0400 Respiratory rate 20 /min Dr. Geeta Odell Work Phone: [facility] Work Phone: 11-01-2021 14:40-0400 SaO2% (BldA) [Mass fraction] 99 % Dr. Geeta Odell Work Phone: [facility] Work Phone: 11-01-2021 14:40-0400 Systolic blood pressure 136 mm[Hg] Dr. Geeta Odell Work Phone: [facility] Work Phone: 07-26-2021 12:47-0500 Diastolic blood pressure 74 mm[Hg] Dr. Geeta Odell Work Phone: [facility] Work Phone: 07-26-2021 12:47-0500 Heart rate 114 /min Dr. Geeta Odell Work Phone: [facility] Work Phone: 07-26-2021 12:47-0500 SaO2% (BldA) [Mass fraction] 97 % Dr. Geeta Odell Work Phone: [facility] Work Phone: 07-26-2021 12:47-0500 Systolic blood pressure 134 mm[Hg] Dr. Geeta Odell Work Phone: [facility] Work Phone: 06-21-2021 10:50-0500 Body temperature 97.1 [degF] Dr. Geeta Odell Work Phone: [facility] Work Phone: 06-21-2021 10:50-0500 Diastolic blood pressure 85 mm[Hg] Dr. Geeta Odell Work Phone: [facility] Work Phone: 06-21-2021 10:50-0500 Heart rate 82 /min Dr. Geeta Odell Work Phone: [facility] Work Phone: 06-21-2021 10:50-0500 Respiratory rate 16 /min Dr. Geeta Odell Work Phone: [facility] Work Phone: 06-21-2021 10:50-0500 SaO2% (BldA) [Mass fraction] 97 % Dr. Geeta Odell Work Phone: [facility] Work Phone: 06-21-2021 10:50-0500 Systolic blood pressure 124 mm[Hg] Dr. Geeta Odell Work Phone: [facility] Work Phone: 06-21-2021 08:52-0500 Body height 163.[address] Geeta Odell Work Phone: [facility] Work Phone: 06-21-2021 08:52-0500 Body mass index (BMI) [Ratio] 28.3 kg/m2 Dr. Geeta Odell Work Phone: [facility] Work Phone: 06-21-2021 08:52-05[address] Body weight [address] Geeta Odell Work Phone: [facility] Work Phone: Encounters Encounter Date Encounter Type Care Provider Facility Start: 01-06-2025 ambulatory [facility] Facility: [facility] Start: 11-19-2024 End: 11-19-2024 Emergency department patient visit DARIO LING MD [facility] Start: 10-11-2024 End: 10-11-2024 Postop follow up visit related to original px Ranjan Holland DICE DEALER-NATURAL RESOURCES EXTENSION EDUCATOR Work Phone: Division of [facility] at [facility] Comment on above: S/P craniotomy (Prim narciso Dx) Start: 10-11-2024 ambulatory [facility] Facility: [facility] Start: 09-15-2024 End: 09-17-2024 Evaluation and management of inpatient Velma Julien MD Work Phone: [id number] Comment on above: Trigeminal neuralgia Start: 08-27-2024 ambulatory [facility] Facility: [facility] Start: 08-25-2024 Encounter for other preprocedural examination ROE DUTTA Facility:[facility] Start: 08-25-2024 End: 08-25-2024 Patient encounter status Roe Dutta DICE DEALER-NATURAL RESOURCES EXTENSION EDUCATOR Work Phone: [facility] Work Phone: Start: 08-25-2024 End: 08-25-2024 Subsequent hospital visit by physician Roe Dutta DICE DEALER-NATURAL RESOURCES EXTENSION EDUCATOR Work Phone: Imaging [facility] Comment on above: Arrived Start: 08-25-2024 ambulatory ROE DUTTA Facilit y:[facility] Start: 08-25-2024 End: 08-25-2024 Office outpatient new 60 minutes Roe Dutta DICE DEALER-NATURAL RESOURCES EXTENSION EDUCATOR Work Phone: Pre-Procedure Evaluation and Assessment [facility] Comment on above: Preop exam for inter nal medicine (Primary Dx); Trigeminal neuralgia; Liver cirrhosis secondary to nonalcoholic steatohepatitis (JEWELL); Seizure disorder; Type 2 diabetes mellitus without complication, with long-term current use of insulin; S/P liver transplant; Type 2 diabetes mellitus treated without insulin; Remote history of TIA Start: 08-25-2024 End: 08-25-2024 Patient encounter status Roe Dutta DICE DEALER-NATURAL RESOURCES EXTENSION EDUCATOR Work Phone: [facility] Start: 08-25-2024 ambulatory ROE Olivarez LUZMARIA Facilit y:[facility] Start: 08-09-2024 ambulatory VELMA JULIEN Facilit y:[facility] Start: 07-19-2024 ambulatory [facility] Facility: [facility] Start: 05-21-2024 End: 05-21-2024 ambulatory [facility] Facility:[facility] Start: 05-20-2024 End: 05-20-2024 Emergency department patient visit [facility] Facility:[facility] Start: 05-11-2024 End: 05-11-2024 ambulatory [facility] Facility:[facility] Start: 05-06-2024 End: 05-06-2024 ambulatory [facility] Facility:[facility] Start: 04-29-2024 End: 04-29-2024 ambulatory Geeta Miedel Facility:[facility] Start: 03-12-2024 ambulatory Geeta Miedel Facility: [facility] Start: 02-26-2024 End: 02-26-2024 ambulatory Geeta Miedel Facility:[facility] Start: 02-24-2024 End: 02-24-2024 Emergency department patient visit Geeta Nabilgibson Facility:[facility] Start: 02-24-2024 End: 02-24-2024 ambulatory Geeta Miedel Facility:[facility] Start: 02-13-2024 End: 02-13-2024 ambulatory Geeta Miedel Facility:[facility] Start: 01-26-2024 End: 01-27-2024 ambulatory Geeta Miedel Facility:[facility] Start: 01-14-2024 End: 01-14-2024 [facility] Start: 01-06-2024 End: 01-06-2024 ambulatory Geeta Yanyed Facility:[facility] Start: 07-03-[address] Ana Odell Work Phone: [facility] Start: 06-19-2022 End: 06-19-[address] Geeta Odell Work Phone: [facility] Work Phone: Start: 06-19-2022 End: 06-19-[address] Geeta Odell Work Phone: [facility] Start: 06-11-2022 End: 06-11-[address] Geeta Odell Work Phone: [facility] Start: 06-11-2022 End: 06-11-[address] Geeta Odell Work Phone: [facility] Work Phone: Start: 06-11-2022 End: 06-11-[address] Geeta Odell Work Phone: [facility] Start: 05-15-2022 End: 05-15-[address] Geeta Odell Work Phone: [facility] Start: 03-19-2022 Non-patient / Non-visit Dr. Ta Odell Work Phone: [facility] Start: 03-19-2022 End: 03-19-[address] Geeta Odell Work Phone: [facility] Work Phone: Start: 03-19-2022 End: 03-19-[address] Geeta Odell Work Phone: [facility]Cardi[facility] Services Start: 03-14-2022 End: 03-14-[address] Geeta Odell Work Phone: [facility] Work Phone: Start: 03-14-2022 End: 03-14-[address] Geeta Odell Work Phone: [facility] Start: 03-12-2022 End: 03-12-[address] Geeta Odell Work Phone: [facility] Work Phone: Start: 03-12-2022 End: 03-12-[address] Geeta Odell Work Phone: [facility] Start: 03-12-2022 End: 03-12-[address] Geeta Odell Work Phone: [facility] Start: 03-07-2022 End: 03-07-[address] Geeta Odell Work Phone: [facility] Gastroenter[facility] Start: 03-06-2022 End: 03-06-[address] Geeta Odell Work Phone: [facility] Work Phone: Start: 03-06-2022 End: 03-06-[address] Geeta Odell Work Phone: [facility]Laboratory, Specimen Start: 02-05-2022 End: 02-05-[address] Geeta Odell Work Phone: [facility] Therapy Start: 02-05-[address] Ana Odell Work Phone: [facility] Start: 02-05-2022 End: 02-05-[address] Geeta Odell Work Phone: [facility] Work Phone: Start: 02-05-2022 End: 02-05-[address] Geeta Odell Work Phone: [facility]Radiology, [facility] Start: 01-24-2022 End: 01-24-[address] Geeta Odell Work Phone: [facility] Start: 01-23-2022 End: 01-23-[address] Geeta Odell Work Phone: [facility] Work Phone: Start: 01-23-2022 End: 01-23-[address] [facility] [place] Start: 01-04-2022 End: 01-04-[address] Geeta Odell Work Phone: [facility] Start: 12-21-2021 End: 12-21-[address] Geeta Odell Work Phone: [facility] Start: 12-13-2021 End: 12-13-[address] Geeta Odell Work Phone: [facility] Start: 12-07-2021 End: 12-07-[address] Geeta Odell Work Phone: [facility] Start: 11-30-2021 End: 11-30-[address] Geeta Odell Work Phone: [facility] Start: 11-28-2021 End: 11-29-2021 Emergency department patient visit Dr. Geeta Odell Work Phone: [facility]-Emergency Department Start: 11-27-2021 Non-patient / Non-visit Dr. Ta Odell Work Phone: [facility] Start: 11-27-2021 End: 11-27-2021 Admission to same day surgery center Dr. Geeta Odell Work Phone: [facility]-Endoscopy Start: 11-21-2021 End: 11-21-2021 Emergency department patient visit Dr. Geeta Odell Work Phone: [facility]Emergency Department Start: 11-14-2021 End: 11-14-[address] Geeta Odell Work Phone: [facility]-Outpatient Breast Imaging Start: 11-01-2021 End: 11-01-[address] Geeta Odell Work Phone: [facility] Start: 10-12-2021 End: 10-12-[address] Geeta Odell Work Phone: [facility] Services/Neurology Start: 10-08-2021 End: 10-08-[address] Geeta Odell Work Phone: [facility] Start: 07-26-2021 End: 07-26-[address] Geeta Odell Work Phone: [facility] Start: 07-06-2021 End: 07-06-[address] Geeta Odell Work Phone: [facility] Start: 07-04-2021 End: 07-04-[address] Geeta Odell [facility] Start: 06-21-2021 Non-patient / Non-visit Dr. Ta Odell Work Phone: [facility] Start: 06-21-2021 End: 06-21-2021 Admission to same day surgery center Dr. Geeta Odell Work Phone: [facility]Endoscopy Start: 05-02-2018 End: 05-03-2018 Evaluation and management of inpatient Dmoinic Logan Facility:[facility] Start: 12-20-2016 End: 12-21-2016 Ambulatory PHY WO ID REFERRING Facility:[facility] Start: 12-18-2016 End: 12-19-2016 Ambulatory PHY WO ID REFERRING Facility:[facility] Procedures Date Procedure Procedure Detail Performing Clinician Start: 09-17-2024 Blood count platelet automated Berry Nikole valencia MD Work Phone: Start: 09-17-2024 Glucose measurement, blood Velma pereira MD Work Phone: Start: 09-17-2024 Glucose measurement, blood Velma pereira MD Work Phone: Start: 09-17-2024 Creatinine blood Bonilla Quezada MD Work Phone: Start: 09-16-2024 Glucose measurement, blood Velma pereira MD Work Phone: Start: 09-16-2024 Glucose measurement, blood Velma pereira MD Work Phone: Start: 09-16-2024 Glucose measurement, blood Velma pereira MD Work Phone: Start: 09-16-2024 Glucose measurement, blood Velma pereira MD Work Phone: Start: 09-16-2024 Creatinine blood Bonilla Quezada MD Work Phone: Start: 09-15-2024 Glucose measurement, blood Velma pereira MD Work Phone: Start: 09-15-2024 Glucose measurement, blood Velma pereira MD Work Phone: Start: 09-15-2024 CARDIAC RHYTHM Other Other OT Start: 09-15-2024 IP CONSULT TO SPEECH THERAPY Bonilla Quezada MD Work Phone: Start: 09-15-2024 Ct head/brain w/o contrast material Bonilla Quezada MD Work Phone: Start: 09-15-2024 Glucose measurement, blood Velma pereira MD Work Phone: Start: 09-15-2024 Creatinine blood Bonilla Quezada MD Work Phone: Start: 09-15-2024 CONTINUOUS CARDIAC MONITORING STRIP Other Other Start: 09-15-2024 Calcium ionized Velma Julien MD Work Phone: Start: 09-15-2024 End: 09-15-2024 TRANSFUSE OR PLATELETS Teresita Skniner Work Phone: Start: 09-15-2024 End: 09-15-2024 TRANSFUSE OR PLATELETS Teresita Skinner Work Phone: Start: 09-15-2024 End: 09-15-2024 Crnec sopl expl/dcmprn crnl nrv Velma Cardozo MD Work Phone: Start: 09-15-2024 Glucose measurement, blood Velma pereira MD Work Phone: Start: 09-15-2024 ABORH TYPE RECONFIRMATION Amber Aguilar DO Work Phone: Start: 09-15-2024 CBC AND ELECTRONIC DIFF Danita Vivas MD Work Phone: Start: 09-15-2024 Complete blood count with white cell differential, automated Danita Vivas MD Work Phone: Start: 09-15-2024 Prothrombin time Danita Vivas MD Work Phone: Start: 08-25-2024 Antibody screen Roe Densel DICE DEALER-NATURAL RESOURCES EXTENSION EDUCATOR Work Phone: Start: 08-25-2024 Radiologic exam chest 2 views Roe C D ensel DICE DEALER-NATURAL RESOURCES EXTENSION EDUCATOR Work Phone: Start: 08-25-2024 Antibody screen GEETA JOSE R Comment on above: Performed By: #### XMPO #### [facility] ([facility]) [address] [place] [address] Start: 08-25-2024 Blood typing serologic abo Roe C Dens el DICE DEALER-NATURAL RESOURCES EXTENSION EDUCATOR Work Phone: Start: 08-25-2024 CBC AND ELECTRONIC DIFF Roe C Densel DICE DEALER-NATURAL RESOURCES EXTENSION EDUCATOR Work Phone: Start: 08-25-2024 Complete blood count with white cell differential, automated Roe C Densel DICE DEALER-NATURAL RESOURCES EXTENSION EDUCATOR Work Phone: Start: 08-25-2024 EXTRA LIGHT BLUE TOP Roe C Densel DICE DEALER-NATURAL RESOURCES EXTENSION EDUCATOR Work Phone: Start: 08-25-2024 Hemoglobin glycosylated a1c Roe C Den miguel DICE DEALER-NATURAL RESOURCES EXTENSION EDUCATOR Work Phone: Start: 08-25-2024 PREPARE TO TRANSFUSE OR PLATELETS Zuhair Bro MD, PhD Work Phone: Start: 08-25-2024 PREPARE TO TRANSFUSE PLATELET Teresita ortega MD Work Phone: Start: 08-25-2024 PTT WITH MIXING STUDY Roe C Densel DICE DEALER-NATURAL RESOURCES EXTENSION EDUCATOR Work Phone: Start: 08-25-2024 EXTRA MICRO Roe C Densel DICE DEALER-NATURAL RESOURCES EXTENSION EDUCATOR Work Phone: Start: 08-25-2024 URINALYSIS REFLEX TO CULTURE Roe C De nsel DICE DEALER-NATURAL RESOURCES EXTENSION EDUCATOR Work Phone: Start: 08-25-2024 Urnls dip stick/tablet reagent auto microscopy Roe C Densel DICE DEALER-NATURAL RESOURCES EXTENSION EDUCATOR Work Phone: Start: 08-25-2024 PREPARE TO TRANSFUSE OR RED BLOOD CELLS Roe C Densel DICE DEALER-NATURAL RESOURCES EXTENSION EDUCATOR Work Phone: Start: 06-19-2022 Plain chest X-ray Dr. Geeta Odell Work Phone: Start: 06-11-2022 MRI of lumbar spine Dr. Geeta Odell Work Phone: Start: 03-14-2022 Computed tomography of abdomen and pelvis with contrast Dr. Geeta Odell Work Phone: Start: 02-05-[address] Geeta Odell Work Phone: Start: 01-24-2022 Plain X-ray of clavicle Dr. Geeta malagon Work Phone: Start: 01-04-2022 Plain X-ray of clavicle Dr. Geeta malagon Work Phone: Start: 12-21-2021 Plain X-ray of clavicle Dr. Geeta malagon Work Phone: Start: 12-07-2021 Plain X-ray of clavicle Dr. Geeta malagon Work Phone: Start: 11-29-2021 Plain X-ray of clavicle Dr. Geeta malagon Work Phone: Start: 11-29-2021 Plain X-ray of shoulder Dr. Geeta malagon Work Phone: Start: 11-27-[address] Geeta piña Work Phone: Start: 11-21-[address] Geeta Odell Work Phone: Start: 11-21-2021 X-ray of chest posteroanterior view Dr. Geeta Odell Work Phone: Start: 11-21-2021 CT of head without contrast Dr. Geeta luu Work Phone: Start: 11-14-[address] Geeta Odell Work Phone: Start: 06-20-2021 SARS-CoV-2 Antigen (Rapid) Dr. Geeta piña Work Phone: Start: 06-05-2018 H/O: liver recipient S/P liver transplant Roe Luzmaria DICE DEALER-NATURAL RESOURCES EXTENSION EDUCATOR Work Phone: Start: 06-05-2018 Transplanted liver present DARIO PARRA MD Start: 05-02-2018 Electrocardiogram Dominic Logan Start: 02-03-2015 Structure of rotator cuff of right shoulder DARIO LING MD Abdominal hysterectomy DARIO LING MD Cholecystectomy DARIO TUCKER MD H/O: liver recipient History of liver transplant Dr. Geeta Odell Work Phone: H/O: liver recipient Liver trans plant recipient Dr. Geeta Odell Work Phone: H/O: liver recipient S/P liver transplant Roe Olivarez Luzmaria DICE DEALER-NATURAL RESOURCES EXTENSION EDUCATOR Work Phone: H/O: liver recipient History of liver transplant DARIO LING MD Urine culture Dr. Geeta parra Work Phone: Urine culture Dr. Geeta parra Work Phone: Plan of Treatment Date Care Activity Detail Author Start: 04-23-2027 Tetanus vaccination TETANUS [facility] Start: 09-27-2024 End: 09-27-2024 Patient encounter procedure 09/27/2024 11:00 AM EDT Office Visit Division of Neuro Surgery at [facility] [address] [place] [address] Ranjan Holland DICE DEALER-NATURAL RESOURCES EXTENSION EDUCATOR [address] [place] [address] Division of Neuro Surgery at [facility] Start: 09-15-2024 End: 09-15-2024 Crnec sopl expl/dcmprn crnl nrv CRANIECTOMY SUBOCCIPITAL W/ DECOMPRESSION OR SECTION CRANIAL NERVE TN (trigeminal neuralgia) 09/15/2024 7:30 AM EDT [facility] Start: 09-15-2024 End: 09-15-2024 Evaluation and management of inpatient CCCT PERIOP Comment on above: TN (trigeminal neura lgia) CRANIECTOMY SUBOCCIP ITAL W/ DECOMPRESSION OR SECTION CRANIAL NERVE Start: 08-27-2024 End: 08-27-2024 Anesthesia consultation 08/27/2024 2:30 PM EDT Pre-Operative Nurse Assessment [facility] [address] [place] [address] Velma Julien MD [address] [place] [address] [facility] Start: 08-25-2024 End: 08-25-2025 SCREEN: MRSA/MSSA [facility] Comment on above: Expected: 08/25/2024 , Expires: 08/25/2025 Start: 06-13-2022 Patient referral [facility] Work Phone: Start: 11-27-2021 Egd insert guide wir e dilator passage esophagus EGD GUIDE WIRE INSERTION [facility] Work Phone: Start: 11-27-2021 Egd transoral biopsy single/multiple EGD BIOPSY SINGLE/MULTIPLE [facility] Work Phone: Start: 11-27-2021 Patient discharge [facility] Work Phone: Start: 11-21-2021 Bacteria identified in Urine by Culture Urine Culture [facility] Work Phone: Start: 06-21-2021 Colsc flx w/rmvl of tumor polyp lesion snare tq COLONOSCOPY W/LESION REMOVAL [facility] Work Phone: Start: 06-19-2021 Zoster vaccine hzv live for subcutaneous use ZOSTER (SHINGLES) VACCINE (2 of 2) [facility] Start: 03-08-2018 Hepatitis B vaccination HEP B VACCINE (3 of 3 - 19+ 3-dose series) [facility] Start: 2012 Screening for malignant neoplasm of colon COLORECTAL CANCER SCREENING DISCUSSION [facility] Start: 2007 Lipid panel LIPID SCREENING [facility] Start: 2007 Screening for malignant neoplasm of breast MAMMOGRAM SCREENING DISCUSSION [facility] Start: 1988 Screening for malignant neoplasm of cervix CERVICAL CANCER SCREENING DISCUSSION [facility] Start: 1982 HIV screening HIV SCREENING DISCUSSI ON [facility] Start: 1972 COVID-19 VACCINE (#1) COVID-19 VACCI NE (#1) [facility] Start: 1967 Hepatitis C screening HEPATITI S C VIRUS SCREENING [facility] Ecg routine ecg w/least 12 lds w/i&r AZ ECG ROUTINE ECG W/LEAST 12 LDS W/I&R AZ - OFFICE PERFORMED Routine Preop exam for internal medicine Trigeminal neuralgia Liver cirrhosis secondary to nonalcoholic steatohepatitis (JEWELL) Seizure disorder Type 2 diabetes mellitus without complication, with long-term current use of insulin S/P liver transplant Ordered: 08/25/2024 [facility] Comment on above: Ordered: 08/25/2024 MR Lumbar spine [facility] Work Phone: Patient Education [facility] Work Phone: Patient referral [facility] Work Phone: US Heart [facility] Work Phone: End: 09-15-2024 US Unspecified body region US IMAGING DOMINIC OR Imaging Routine One Time for 1 Occurrences starting 09/15/2024 until 09/15/2024 [facility] Comment on above: One Time for 1 Occur rences starting 09/15/2024 until 09/15/2024 Immunizations Immunization Date Immunization Notes Care Provider Maria Elena ramirez 04-24-2021 zoster vaccine, unspecified formulation Roe Dutta DICE DEALER-NATURAL RESOURCES EXTENSION EDUCATOR Work Phone: [facility] 02-22-2020 influenza, injectabl e, quadrivalent, preservative free; Translations: [Fluarix PF Quadrivalent ] DARIO LING MD [facility] 04-21-2019 influenza, injectabl e, quadrivalent, preservative free; Translations: [Fluarix PF Quadrivalent ] DARIO LING MD [facility] 03-10-2018 influenza, seasonal, injectable Dr. Geeta Odell Work Phone: [facility] 04-08-2017 influenza, seasonal, injectable Dr. Geeta Odell Work Phone: [facility] 03-16-[address] Geeta Odell Work Phone: [facility] Payers Date Payer Category Payer Self-pay [id number] 2023 Medicare (Managed Care) MEDICARE [facility] HMO [id number] 2023 Medicare [id number] 2020 Private Health Insurance [id number] 2018 Unknown [id number] 2003 Unknown [id number] 1967 Unknown [id number] 1967 Unknown [id number] 1967 Unknown [id number] 1967 Unknown [id number] 1967 Unknown [id number] 2.840.1.492520.3.579.2. 594 1965 Unknown [id number] 2.16840.1.632819.3.579.2. 594 1965 Unknown [id number] 2.16840.1.964952.3.579.2. 594 1965 Unknown [id number] 2.16840.1.015381.3.579.2. 594 Department [facility] ( and others) [id number] Medicare [id number] Private Health Insurance [facility] [id number] Unknown [id number] 2.16840.1.306679.3.579.2. 273 Unknown [id number] Unknown [id number] 2.16.840.1.167130.3.579.2. 462 Unknown [id number] 2.840.1.910140.3.579.2. 462 Unknown [id number] 2.840.1.435918.3.579.2. 462 Unknown [id number] 2.16840.1.398349.3.579.2. 462 Unknown [id number] 2.16840.1.526315.3.579.2. 462 Unknown [id number] 2.16840.1.608528.3.579.2. 462 Unknown [id number] 2.16840.1.281903.3.579.2. 462 Unknown [id number] 2.16840.1.554983.3.579.2. 462 Unknown [id number] 2.16840.1.965480.3.579.2. 462 Unknown [id number] 2.16840.1.163682.3.579.2. 462 Unknown [id number] 2.16.840.1.916798.3.579.2. 462 Unknown [id number] 2.16.840.1.543841.3.579.2. 462 Unknown [id number] 2.16840.1.455979.3.579.2. 462 Unknown [id number] 2.16.840.1.996689.3.579.2. 462 Unknown [id number] 2.16.840.1.702238.3.579.2. 462 Unknown [id number] 2.16.840.1.232547.3.579.2. 462 Social History Date Type Detail Facility [facility] Work Phone: Start: 08-23-2021 End: 05-15-2022 Tobacco smoking status IAIS Unknown if ever smoked [facility] Start: 02-04-2019 None [facility] Start: 09-12-2020 Spouse/ Signif icant Other [facility] Start: 09-12-2020 Non-smoker [facility] Start: 1965 Sex Assigned At Female [facility] Start: 01-25-2019 End: 08-25-2024 Tobacco smoking status NHIS Never smoked tobacco [facility] Start: 08-25-2024 Tobacco use and exposure Smokeless tobacco non-user [facility] Start: 08-25-2024 End: 10-11-2024 Alcoholic beverage intake Ex-drinker (finding) [facility] Start: 08-25-2024 End: 10-11-2024 History of Social function [facility] Start: 08-25-2024 End: 10-11-[address] [facility] Adolescent depressio n screening assessment 0 [facility] Start: 1965 Sex assigned at Not on file [facility] Start: 12-05-2016 End: 12-09-2018 Sex Female (finding) [facility] Start: 12-06-2016 Gender identity Identifies as female gender (finding) [facility] Start: 09-10-2024 Sexual orientation Heterosexual (denise ramírez) [facility] Sexual Orientation Cesar Guerrero [facility] Procedure Code Equipment Code Equipment Original Text Equipment Identifier Dates Plate Bone .3mm Craniofacial 2x2 Hole Ultra Low Profile Tab - [id number] Start: 09-15-2024 Plate Bn .3mm Sh rt Str Crnfcl 28-576-51-09 - [id number] Start: 09-15-2024 Screw Bone Drill Free Craniomaxillofacial Titanium Level One - [id number] Start: 09-15-2024 Screw Bone Drill Free Craniomaxillofacial Titanium Level One - [id number] Start: 09-15-2024 Plate Bone .3mm Craniofacial 2x2 Hole Ultra Low Profile Tab - [id number] Start: 09-15-2024 Screw Bone Drill Free Craniomaxillofacial Titanium Level One - [id number] Start: 09-15-2024 Screw Bone Drill Free Craniomaxillofacial Titanium Level One - [id number] Start: 09-15-2024 Screw Bone Drill Free Craniomaxillofacial Titanium Level One - [id number] Start: 09-15-2024 Plate Bn .3mm Sh rt Str Crnfcl 50-804-53-09 - [id number] Start: 09-15-2024 Screw Bone Drill Free Craniomaxillofacial Titanium Level One - [id number] Start: 09-15-2024 Screw Bone Drill Free Craniomaxillofacial Titanium Level One - [id number] Start: 09-15-2024 Screw Bone Drill Free Craniomaxillofacial Titanium Level One - [id number] Start: 09-15-2024 See Instructions , QS for testing BID. E11.9, # 1 EA, 11 Refill(s), Pharmacy: [facility], Diabetes mellitus, 162.6, cm, 01/28/20 13:27:00 EDT, Height, 77.9, kg, 01/28/20 13:27:00 EDT, Dosing Weight Start: 01-28-2020 See Instructions , QS for testing BID. E11.9, # 1 EA, 11 Refill(s), Pharmacy: [facility], Diabetes mellitus, 162.6, cm, 01/28/20 13:27:00 EDT, Height, 77.9, kg, 01/28/20 13:27:00 EDT, Dosing Weight Start: 01-28-2020 Goals Date Patient Goal Desired Activity /State Mental Status Date Assessment Result Facility 11-27-2021 Cognitive function Voice/Name;Touch/Britany mckeon [facility] Work Phone: 11-21-2021 Cognitive function Level Of Cons ciousness Awake;Inappropriate [facility] Work Phone: 06-21-2021 Cognitive function Voice/Name [facility] Work Phone: Clinical Notes 08-25-2024 to 11-19-2024 Note Date & Type Note Facility 11-19-2024 Hospital Discharg e instructions Patient Education 11/19/2024 17:37:20 Fall, Mechanical Mechanical Fall You have had a fall today. It appears that the cause is what is called mechanical. That means that you slipped, tripped, or lost your balance. If your fall had been because of fainting or a seizure, you might need other tests. It is normal to feel sore and tight in your muscles and back the next day, and not just the muscles you injured at first. Remember, all the parts of your body are connected, so while initially one area hurts, the next day another may hurt. Also, when you injure yourself, it causes inflammation, which then causes the muscles to tighten up and hurt more. After the initial worsening, it should gradually improve over the next few days. Do report more severe pain. Even without a definite head injury, you can still get a concussion from your head suddenly jerking forward, backward, or sideways when falling. Concussions and even bleeding can still happen, especially if you have had a recent injury or take blood thinner medicine. It is not unusual to have a mild headache and feel tired and even nauseous or dizzy. Home care Rest today and go back to your normal activities when you are feeling back to normal. If you were injured during the fall, follow the advice from your healthcare provider regarding care of your injury. At first, do not try to stretch out the sore spots. If there is a strain, stretching may make it worse. Massage may help relax the muscles without stretching them. You can use an ice pack or cold compress on and off to the sore spots 10 to 20 minutes at a time, as often as you feel comfortable. This may help reduce the inflammation, swelling and pain. If you have any scrapes or abrasions, they usually heal within 10 days. It is important to keep the abrasions clean while they initially start to heal. However, an infection may happen even with proper care, so watch for early signs of infection (such as warmth, redness, or swelling). Medicines Talk to your healthcare provider before taking new medicines, especially if you have other medical problems or are taking other medicines. If you need anything for pain, you can take acetaminophen or ibuprofen, unless you were given a different pain medicine to use. Talk with your healthcare provider before using these medicines if you have chronic liver or kidney disease, or ever had a stomach ulcer or gastrointestinal bleeding, or are taking blood thinner medicines. Be careful if you are given prescription pain medicines, narcotics, or medicine for muscle spasm. They can make you sleepy and dizzy, and can affect your coordination, reflexes, and judgment. Do not drive or do work where you can injure yourself when taking them. Fall prevention Fix, remove, or replace anything that caused your fall. Make your home safe by keeping walkways clear of objects you may trip over. Use nonslip pads under rugs. Don't use small area rugs or throw rugs. Don't walk in poorly lit areas. Don't stand on chairs or wobbly ladders. Use caution when reaching overhead or looking upward. This position can cause a loss of balance. Be sure your shoes fit properly, have nonslip bottoms and are in good condition. Be cautious when going up and down curbs, and walking on uneven sidewalks. If your balance is poor, consider using a cane or walker. Stay as active as you can. Balance, flexibility, strength, and endurance all come from exercise. They all play a role in preventing falls. If you have pets, know where they are before you stand up or walk so you don't trip over them. Limit alcohol intake. Alcohol can cause balance problems and increase the risk of falls. Use night lights. Have your eyes tested to be sure you are seeing well, even if you already wear glasses. Follow-up Follow up with your healthcare provider, or as advised. If X-rays or CT scans were done, you will be notified if there is a change in the reading, especially if it affects treatment. Call 911 Call 911 if any of these happen: Trouble breathing Confused or difficulty arousing Fainting or loss of consciousness Rapid or very slow heart rate Seizure Difficulty with speech or vision, weakness of an arm or leg Difficulty walking or talking, loss of balance, numbness or weakness in one side of your body, or facial droop When to seek medical advice Call your healthcare provider right away if any of these happen: Repeated mechanical falls, or unexplained falls Dizziness Severe headache Blood in vomit, stools (black or red color) [phone] [employer]. [address] [place] [address]. All rights reserved. This information is not intended as a substitute for professional medical care. Always follow your healthcare professional's instructions. Follow Up Care 11/19/2024 15:56:29 With:GEETA ODELL Address: [address] [place] [address] [phone] When:2-4 days [facility] 11-19-2024 Note Discharge Instructions Thank you for allowing [facility] to assist you with your healthcare needs. The following is important discharge information regarding your hospital visit. Diagnosis from Today's Visit Fall What to Do Next Instructions from Your Care Team this needs followed up my your family doctor: There are focal nodular infiltrates at the medial right upper lung zone. Follow-up CT thorax may be useful for further evaluation. No qualifying data available. Post Acute Orders No qualifying data available. You Need to Schedule the Following Appointments Follow Up with GEETA ODELL When:Within 2-4 days Where:[address] [place] [id number] [phone] Allergies Ativan Augmentin Bactrim Fever Benadryl Compazine Phenergan Topamax Medications Please ask your primary doctor or pharmacist before taking any other medication not listed, including over the counter drugs, herbal medications, vitamins and or supplements as they may interact with your home medications. What How Much When Why Instructions Last Dose New naproxen (naproxen 250 mg oral tablet) 1 tab(s) by mouth Two (2) times a day as needed for as needed for pain Printed Prescription Unchanged albuterol (albuterol MDI (90 mcg/ inh) CFC free inhalation aerosol) 2 puff(s) by inhalation Every 4 hours Asthma Duration: 30 Days Unchanged aspirin (aspirin 325 mg oral delayed release tablet) by mouth Once a day Unchanged buPROPion (buPROPion 150 mg/ 24 hours (XL) oral tablet, extended release) 1 tab(s) by mouth Every 24 hours Unchanged calcium carbonate (calcium (as carbonate) 600 mg oral tablet) 1 tab(s) by mouth Twice daily with meals Unchanged carBAMazepine (TEGretol 200 mg oral tablet) 1 tab(s) by mouth Every day Unchanged cholecalciferol (Vitamin D3 5000 intl units oral capsule) 1 cap by mouth Once a day Unchanged citalopram (citalopram 40 mg oral tablet) 1 tab(s) by mouth Once a day Duration: 90 Days Unchanged denosumab (denosumab 60 mg/ mL subcutaneous solution) 60 Milligram Subcutaneous Every 6 months Unchanged denosumab (Prolia 60 mg/ mL subcutaneous solution) 1 Milliliter Subcutaneous Every 6 months Unchanged DME (Blood Glucose Test Machine) See instructions Diabetes mellitus QS for testing BID. E11.9 Unchanged DME (Blood Glucose Test Strips) See instructions Diabetes mellitus QS for testing BID. E11.9 Unchanged DME (Lancets) See instructions Diabetes mellitus QS for testing BID. E11.9 Unchanged fluticasone-vilanterol (Breo Ellipta 100 mcg-25 mcg/ inh inhalation powder) 1 puff(s) by inhalation Every day Duration: 90 Days Unchanged glipiZIDE (glipiZIDE 5 mg oral tablet, extended release) 1 tab(s) by mouth Once a day with a meal Unchanged hydrOXYzine (hydrOXYzine hydrochloride 25 mg oral tablet) 1 tab(s) by mouth Four (4) times a day as needed for as needed for anxiety Unchanged metFORMIN (metFORMIN 500 mg oral tablet) See instructions 2 tabs in AM, 1 in PM Unchanged mycophenolate mofetil (CellCept) Two (2) times a day Unchanged omeprazole (omeprazole 20 mg oral delayed release capsule) 1 cap by mouth Once a day Unchanged oxybutynin (oxybutynin 10 mg/ 24 hr oral tablet, extended release) 1 tab(s) by mouth Once a day Duration: 30 Days Unchanged rOPINIRole (rOPINIRole 1 mg oral tablet) 1 tab(s) by mouth Once a day Unchanged SUMAtriptan (SUMAtriptan 50 mg oral tablet) 1 tab(s) by mouth Once a day as needed for as needed for migraine headache 1 tab onset , may repeat in 2 hrs. MAX 4 tab(s)/ 24hrs Unchanged tacrolimus (Prograf) Every 12 hours Please take this list to your next doctor s visit. Bring all medications you take, including over the counter medications, herbals and other supplements with you to your doctor s visit. Patients and families are reminded to discard old lists and to update any records with all medication providers or retail pharmacies. Education Materials Mechanical Fall You have had a fall today. It appears that the cause is what is called mechanical. That means that you slipped, tripped, or lost your balance. If your fall had been because of fainting or a seizure, you might need other tests. It is normal to feel sore and tight in your muscles and back the next day, and not just the muscles you injured at first. Remember, all the parts of your body are connected, so while initially one area hurts, the next day another may hurt. Also, when you injure yourself, it causes inflammation, which then causes the muscles to tighten up and hurt more. After the initial worsening, it should gradually improve over the next few days. Do report more severe pain. Even without a definite head injury, you can still get a concussion from your head suddenly jerking forward, backward, or sideways when falling. Concussions and even bleeding can still happen, especially if you have had a recent injury or take blood thinner medicine. It is not unusual to have a mild headache and feel tired and even nauseous or dizzy. Home care Rest today and go back to your normal activities when you are feeling back to normal. If you were injured during the fall, follow the advice from your healthcare provider regarding care of your injury. At first, do not try to stretch out the sore spots. If there is a strain, stretching may make it worse. Massage may help relax the muscles without stretching them. You can use an ice pack or cold compress on and off to the sore spots 10 to 20 minutes at a time, as often as you feel comfortable. This may help reduce the inflammation, swelling and pain. If you have any scrapes or abrasions, they usually heal within 10 days. It is important to keep the abrasions clean while they initially start to heal. However, an infection may happen even with proper care, so watch for early signs of infection (such as warmth, redness, or swelling). Medicines Talk to your healthcare provider before taking new medicines, especially if you have other medical problems or are taking other medicines. If you need anything for pain, you can take acetaminophen or ibuprofen, unless you were given a different pain medicine to use. Talk with your healthcare provider before using these medicines if you have chronic liver or kidney disease, or ever had a stomach ulcer or gastrointestinal bleeding, or are taking blood thinner medicines. Be careful if you are given prescription pain medicines, narcotics, or medicine for muscle spasm. They can make you sleepy and dizzy, and can affect your coordination, reflexes, and judgment. Do not drive or do work where you can injure yourself when taking them. Fall prevention Fix, remove, or replace anything that caused your fall. Make your home safe by keeping walkways clear of objects you may trip over. Use nonslip pads under rugs. Don't use small area rugs or throw rugs. Don't walk in poorly lit areas. Don't stand on chairs or wobbly ladders. Use caution when reaching overhead or looking upward. This position can cause a loss of balance. Be sure your shoes fit properly, have nonslip bottoms and are in good condition. Be cautious when going up and down curbs, and walking on uneven sidewalks. If your balance is poor, consider using a cane or walker. Stay as active as you can. Balance, flexibility, strength, and endurance all come from exercise. They all play a role in preventing falls. If you have pets, know where they are before you stand up or walk so you don't trip over them. Limit alcohol intake. Alcohol can cause balance problems and increase the risk of falls. Use night lights. Have your eyes tested to be sure you are seeing well, even if you already wear glasses. Follow-up Follow up with your healthcare provider, or as advised. If X-rays or CT scans were done, you will be notified if there is a change in the reading, especially if it affects treatment. Call 911 Call 911 if any of these happen: Trouble breathing Confused or difficulty arousing Fainting or loss of consciousness Rapid or very slow heart rate Seizure Difficulty with speech or vision, weakness of an arm or leg Difficulty walking or talking, loss of balance, numbness or weakness in one side of your body, or facial droop When to seek medical advice Call your healthcare provider right away if any of these happen: Repeated mechanical falls, or unexplained falls Dizziness Severe headache Blood in vomit, stools (black or red color) [phone] [employer]. [address] [place] [address]. All rights reserved. This information is not intended as a substitute for professional medical care. Always follow your healthcare professional's instructions. Additional Information VACCINATE! IT SAVES LIVES! Members of the community who have not yet received the COVID-19 vaccine and would like to receive it can visit one of [facility] vaccine clinics. There are many vaccine clinic locations within the [facility]. For locations and available times, please visit [email or web address] [email or web address] It is important to note that some COVID mobile vaccine clinics are held outdoors and may be canceled in rainy or stormy conditions. To learn more about pediatric vaccinations (ages 5-11), we invite you to visit the [facility] webpage. [email or web address]/p [email or web address]-Hrfit-Ihtqmmkmbwi-Freq [email or web address]-[email or web address].html To learn more about the COVID-19 vaccine, we invite you to visit the CDC website for a list of frequently asked questions. https://www.cdc.gov/coronavirus/ 2019-ncov/vaccines/faq.html [facility] Patient Portal Access Instructions: Stay connected with your healthcare team and access your personal medical information anytime with the [facility] Patient Portal. If you would like a full copy of your medical records please contact the [facility] Medical Records Department Friday through Friday between 8a.m. and 4:30p.m. Please follow the directions below to access the portal: 1.Access the email account you provided upon registration to the [facility].2.Look for an invitation email from [facility].3.Open the email and access the invitation link: Accept Invitation to [facility].Fill in the required shaffer to create your account. Sign into www.[employer] with your username and password that you created in the above steps to stay up to date. You can then view a summary of results, a summary of your visits, and the ability to download your summaries to your computer or send the information securely to a physician. Remember that your healthcare information is confidential, so carefully consider who you will allow to register on the [facility] Patient Portal for access to your information. You can also access the [facility] Patient Portal on the [employer]. Simply click on "Health Records" under "Health Data" and then click on the [employer] logo. HOW TO SAFELY DISPOSE OF PRESCRIPTION MEDICATIONS Please use one of the following methods to safely dispose of your unused medications. 1.Use a drug disposal kit: the drug disposal pouch allows you to safely discard your old and unused drugs. Ask your nurse to give you one when you are discharged.2.Visit a local take-back location: Many local pharmacies and police departments have programs that collect old and unwanted prescription drugs. Call your local pharmacy or go to http://[employer]/1S8Hp3u to find one close to you.3.Make use of household items: Use cat litter or old coffee grounds to dispose medications if other options are not available. Mix your drugs with these household products, seal them in an airtight container and throw it into the garbage. Call [facility]: [phone] to be sure your drugs can be disposed of in this way. Some medicines may require a different approach.4.Never flush your medications down the toilet. IF YOU HAVE BEEN PRESCRIBED AN OPIOIDS FOR PAIN If you have been prescribed an opioid (such as hydrocodone, oxycodone or morphine), it is critical to understand the possible side effects and risks of opioid pain medications. Even when taken as directed, opioids can have several side effects including: Tolerance, meaning you might need to take more of a medication for the same pain relief. Nausea, vomiting and/or constipation. Sleepiness, dizziness, dry mouth, confusion, depression or itching. Physical dependence, meaning you have withdrawal symptoms when a medication is stopped ? this can develop within a few days. KNOW YOUR RESPONSIBILITIES It is important to know exactly how much and how often to take the opioid pain medications you are prescribed. Never take opioids in higher amounts or more often than prescribed. Do not combine opioids with alcohol or other drugs that cause drowsiness, such as benzodiazepines, also known as benzos, including diazepam and alprazolam, muscle relaxants or sleep aids. Never sell or share prescription opioids. This is illegal. Store opioids in a secure place and out of reach of others (including children, family, friends and visitors). The last page(s) of this document has been signed and retained as a CHART COPY Signatures Patient Education Materials Fall, Mechanical Medication Leaflets My discharge plan and instructions have been reviewed and explained to me and IADA JEANETTE D understand my current condition and have read and understand these discharge instructions. I have received a written copy of the plan/instructions. If I have questions, I am aware that I should contact my doctor. Patient/Er Rn Signature: Date/Time: Relationship to Patient: Witness Name/Signature: Date/Time: [facility] 11-19-2024 Note Exam Date Time Procedure Performing Provider Status 11/19/24 5:06 PM XR Chest 1 View LORENZO IRIZARRY MD; [facility] (Verified) [id number] ORIGINAL EXAMINATION: ONE XRAY VIEW OF THE CHEST 11/19/2024 5:06 pm COMPARISON: None. HISTORY: ORDERING SYSTEM PROVIDED HISTORY: Reason for Exam: pain after fall FINDINGS: There is hypoinflation with accentuation of the cardiomediastinal silhouette and increased bronchovascular markings. There are focal nodular infiltrates at the medial right upper lung zone. Follow-up CT thorax may be useful for further evaluation. There is no consolidation or pleural effusion. There is no pulmonary vascular congestion. There is no pneumothorax. Osseous structures demonstrate mild degenerative changes. Multiple cervical clips projected at the mid upper abdomen. IMPRESSION: There are focal nodular infiltrates at the medial right upper lung zone. Follow-up CT thorax may be useful for further evaluation. There is no consolidation or pleural effusion. Interpreted by: Lorenzo Irizarry Preliminary Report By: Lorenzo Irizarry Electronically signed By Lorenzo Irizarry Dictated Date: 11/19/2024 5:26:55 PM Prelim Date: 11/19/2024 5:30:21 PM Sign Date: 11/19/2024 5:30:21 PM Ordering Provider: [facility]06-06-2025 Note* Exam Date Time Procedure Performing Provider Status 11/19/24 5:05 PM XR Spine Lumbosacral 2 or 3 Views CELINA VARGAS MD; Auth (Verified) [id number] ORIGINAL EXAMINATION: 3 XRAY VIEWS OF THE LUMBAR SPINE 11/19/2024 5:05 pm COMPARISON: 11/25/2017 HISTORY: ORDERING SYSTEM PROVIDED HISTORY: Reason for Exam: LBP, worse toward rt side s/p fall today pain, fall FINDINGS: There are 5 non rib-bearing lumbar type vertebral bodies. Old deformities of L1 and L2 vertebral bodies. Slight degenerative retrolisthesis of L2 on L3 and L3 on L4. Multilevel degenerative changes of the visualized spine most pronounced at L5-S1. Scattered right upper quadrant surgical clips are noted. IMPRESSION: No acute osseous abnormality by radiograph. I have personally reviewed the images of this examination and agree with the resident's findings and interpretation. Interpreted by: Celina Vila Preliminary Report By: Omer Aldridge Electronically signed By Celina Vila Dictated Date: 11/19/2024 5:19:54 PM Prelim Date: 11/19/2024 5:24:25 PM Sign Date: 11/19/2024 5:39:51 PM Ordering Provider: [facility]2025 History of Present illness Narrative * Karlene Caballero RN - 10/11/2024 11:30 AM EDT Pt arrived to clinic ambulatory accompanied by her daughter. Pt reports that this is the first timeshe has been pain free in 2 years. She cont to have some hearing loss. Pt reports that she did yardwork last week, push mowing and weed eating-she denies any difficulty. Pt reports some fatigue-"I went 48Hrs w/o sleeping"pt reports that this is chronic Review of Systems Constitutional: Positive for appetite change (pt reports low appetite). Negative for fatigue, feverand unexpected weight change. HENT: Positive for hearing loss (since surgery left ear only) and tinnitus (occassionally). Negative for congestion, mouth sores and nosebleeds. Eyes: Negative for visual disturbance. Respiratory: Negative for cough, choking and shortness of breath. Cardiovascular: Negative for chest pain and leg swelling. Gastrointestinal: Negative for constipation, diarrhea, nausea and vomiting. Endocrine: Negative. Genitourinary: Negative for dysuria. Musculoskeletal: Positive for back pain (chronic unchanged). Negative for myalgias and neck pain. Skin: Negative for rash and wound. Allergic/Immunologic: Negative. Neurological: Positive for tremors (occ right hand chronic unchanged), seizures (none since May 2024) and light-headedness (stands up too fast). Negative for dizziness, syncope, speech difficulty, weakness, numbness and headaches. Hematological: Does not bruise/bleed easily. Psychiatric/Behavioral: Positive for sleep disturbance (chronic unchanged-pt reports went 48 hrs w/o sleeping over the weekend). Negative for behavioral problems, confusion, decreased concentration and self-injury. The patient is not nervous/anxious. * Ranjan Holland APRN-NATURAL RESOURCES EXTENSION EDUCATOR - 10/11/2024 11:30 AM EDT [facility] On[facility] Dr. Velma Julien Professor, Department of Neurosurgery [facility] at [facility] [place] [address] POST OPERATIVE VISIT NOTES SUMMARY OF CARE DIAGNOSIS: TN Surgery: Date: 09/15/24 [facility] Operative Report Preop Diagnosis: left trigeminal neuralgia Postop Diagnosis: same Procedures performed: Left suboccipital craniotomy for decompression of crainal nerve V Use of operating microscope Surgeons: Velma Julien MD Retail Sales Representative: Bonilla Quezada MD Anesthesia: General SURGICAL PATHOLOGY RESULTS: NA Physical Exam BP 143/78 (BP Location: Right arm, BP Position: Sitting) Pulse 77 Temp 98.7 F (37.1 C) (Temporal) Resp 18 Wt 63.7 kg (140 lb 8 oz) SpO2 98% BMI 24.12 kg/m Smoking Status Never A&Ox3. Interactive, speech fluent PERRL, EOMI ORTEGA, SILT Motor strength 5/5 throughout Gait normal Cranial incision well healed. 2 spitting stitches (removed today). No warmth, erythema, swelling and/or drainage. Non-tender to light palpation. PLAN OF CARE IMPRESSION AND PLAN OF CARE: Stephane Caballero is a 59 y.o. female with TN s/p Left suboccipital craniotomy for decompression ofcrainal nerve V with Dr. Velma Julien on 09/15/24 whom presented to clinic for wound check. Patient appears to be recovering well post operatively for which they are very pleased. No major complaints.Notes complete resolution of preop symptoms. Denies new neurologic symptoms. Spitting stiches removed today w/o difficulty, patient tolerated well. No evidence of infection and/or inflammation. Denies concerns w/ incision and reports back proper wound care. Notes working out in garden and mowing grass yesterday. Reviewed post op instructions and physical restrictions. Will see patient on as needed basis. Advised patient to contact us with new neurologicsymptoms. Pt agrees with the plan. Plan: - Reviewed wound care and activity restrictions - RTC - PRN MARTITA Tolliver documented [facility] Instructions* Patient Instructions* Ciara Cast RN - 10/11/2024 11:30 AM EDT [facility] Neurosurgeons: Dr. Cornelio Foley Nurse Practitioners: Ranjan Holland, MSN, DICE DEALER-NATURAL RESOURCES EXTENSION EDUCATOR Zelda Covarrubias, MSN, DICE DEALER-NATURAL RESOURCES EXTENSION EDUCATOR Clinic Nurses: Sheree Barahona, RACQUELN, RN Phyllis Santamaria, BSN, RN Ciara Cast, BSN, RN Dee Christianson, RACQUELN, RN Avel Bush, BSN, RN Kendall Urbano, RACQUELN, RN Samantha Gaspar, RN Alicia Mosley, BSN, RN [facility] Located in [facility], Ground floor [address] [address] Neurosurgical Office Information: The Neurosurgery clinic and scheduling staff can be reached at [phone]. Please call if you develop new or worsening symptoms, also with any additional questions regarding your visit today or if you need to contact the doctor. You will speak with a recruiting scheduler, who will take a message and forward it to the clinical team. The primary nurse will return your call within 24 hours, assess your problem, consult with your medical team, and give direction on what should be done. We are not able to accommodate walk-in appointments. This is to provide the best possible care we can to all our patients. For any questions, comments, or concerns during after-hours (past 4:30pm M-F), weekends, and/or during a holiday please call [phone] and speak with the after-hours service. You will be connectedto the neurosurgery resident diamond sizer. New or worsening neurological symptoms can include, but are not limited to: weakness, confusion, difficulty walking, vision/hearing/speech changes, seizures or extremity tremors, and persistent headaches. If it is an emergency you will need to go to your local ER. Ask them to fax your records to us so that we can update our team, fax number [phone]. If you experience seizures affecting the whole body, with or with out loss of consciousness, or stroke like symptoms please call 911 and get evaluated at local Emergency Room. The neurosurgery team typically does not refill medications. Please reach out to your primary care physician for any post-hospital or post- surgical medication refill requests. Family Medical Leave paperwork is available through your human resources department. Please allow 10-14 business days for completion of paperwork from our office. Documentation can be faxed to [phone]. Your feedback is important to our team. You may receive a survey in the mail following today's appointment. We would appreciate if you could take a few minutes to complete the survey and return it inthe envelope provided. Your response will be confidential and used to enhance patient care and address areas of opportunity. Thank you The Oncology Distress Screening, or Patient-Reported Outcomes Measurement Information System (PROMIS) questionnaire, is a validated tool used for recording self-reported measures of global, physical,mental and social health for adults in the general population and those living with a chronic condition. You will receive this questionnaire via [employer]. Please complete so your providers at [facility] can better help you! documented in this encounterOSMer[facility]04-[facility] Nurse Note* Nursing Notes - Ashly Norowod RN - 09/17/2024 2:46 PM EDT AVS reviewed with patient. Prescriptions sent to home pharmacy. Patient acknowledges understanding of discharge instructions and denies questions at this time. PIV removed per policy. This nurse assisted patient via wheelchair to lobby for transportation. Ashly Norwood RN [facility]04-04-2025 Miscellaneous Notes* Nursing Notes - Ashly Norwood RN - 09/17/2024 2:46 PM EDT AVS reviewed with patient. Prescriptions sent to home pharmacy. Patient acknowledges understanding of discharge instructions and denies questions at this time. PIV removed per policy. This nurse assisted patient via wheelchair to lobby for transportation. Ashly Norwood RN * Plan of Care - Ashly Norwood RN - 09/17/2024 2:19 PM EDT Problem: Adult Inpatient Plan of Care Goal: Plan of Care Review Outcome: Adequate for Discharge Goal: Patient-Specific Goal (Individualized) Outcome: Adequate for Discharge Goal: Absence of Hospital-Acquired Illness or Injury Outcome: Adequate for Discharge Goal: Optimal Comfort and Wellbeing Outcome: Adequate for Discharge Goal: Readiness for Transition of Care Outcome: Adequate for Discharge * Nursing Notes - Addie Alexander RN - 09/17/2024 3:02 AM EDT Paged: [phone] Ada Santiago, Pt been c/o of TAYLOR practically all night. she says Imitrex would help. I noticed she had it ordered once yesterday for 50mg. Any chance you can order it again right now? Addie GIL [phone] * Plan of Care - Lien Page RN - 09/16/2024 6:31 PM EDT Problem: Adult Inpatient Plan of Care Goal: Plan of Care Review Outcome: Progressing Goal: Patient-Specific Goal (Individualized) Outcome: Progressing Goal: Absence of Hospital-Acquired Illness or Injury Outcome: Progressing Goal: Optimal Comfort and Wellbeing Outcome: Progressing Goal: Readiness for Transition of Care Outcome: Progressing Problem: Swallowing Impairment Goal: Optimal Eating/Swallowing without Aspiration Outcome: Completed * Plan of Care - Radha Simmons OT - 09/16/2024 11:36 AM EDT Problem: OT - ADLs Goal: Lower Body Dressing - Patient will complete lower body dressing tasks with modified independence using adaptive equipment/compensatory strategies as needed for improved ability to complete self-care activities. Outcome: Ongoing Goal: Bathing - Patient will perform full body bathing routine with modified independence while seated for improved ability to complete self-care activities Outcome: Ongoing Problem: OT - Balance Goal: Balance - Standing - Patient will perform 10 minutes of functional task in standing with modified independence and good balance to promote safety and improved balance required for self-care activities. Outcome: Ongoing * Plan of Care - Amber Blake, PT - 09/16/2024 8:41 AM EDT Problem: PT - General Goals Goal: Supine <-> Sit Transfers - Patient will perform supine to/from sit transfers with modified independence and without use of hospital bed features in order to improve functional mobility and safety. Outcome: Ongoing Goal: Sit <-> Stand Transfers - Patient will perform sit to/from stand transfers with modified independence and front-wheeled walker in order to improve functional mobility and safety. Outcome: Ongoing Goal: Standing Endurance/Balance - Patient will perform standing balance tasks for 5 min with modified independence and least restrictive device Outcome: Ongoing Goal: Ambulation - Patient will ambulate 100 feet with modified independence and least restrictive device to improve ability to safely navigate home and community. Outcome: Ongoing * Nursing Notes - Ashly Mills RN - 09/15/2024 7:23 PM EDT Paged MD Gage: [phone] Caballero: Pt. with nausea and vomiting. Nothing ordered. Can you please place an order for zojordi yoko. Thanks LOUISE Limon [phone] * Nursing Notes - Bonilla Cervantes RN - 09/15/2024 3:34 PM EDT On admission to [facility], from PACU a dual RN initial assessment of skin condition was performed by Bonilla Cervantes RN and Lien Jett Skin Assessment: Skin within defined limits:Yes Germán Score: 22 LDA Added:No Bonilla Cervantes RN * Nursing Notes - Marina Lopez RN - 09/15/2024 11:28 AM EDT 1128: Patient arrives in [facility] PACU from OR via gurney with side rails up x2 with HOB >30 degrees, accompanied by Anesthesiologist:. Patient placed on monitors, VSS. Report received from anesthesia. Patient assessed, see assessment. Plan for admission, labs in PACU, CT of head within 2 hours. A-line can be removed. 1200: Updated daughter via text. 1301: page sent to MD Adolph: Post-op labs resulted and CT of head completed for Stephane Caballero. [phone], TY. 1304: Page returned by MD Adolph, labs and CT of head cleared. 1313: Called surgery waiting to update daughter. 1339: page sent to MD Adolph: Page regarding Stephane Caballero. She is requesting her migraine medication, naratriptan 2.5 mg. She can't take Tylenol due to her liver transplant. [phone], TY. * Brief Op Note - Bonilla Quezada MD - 09/15/2024 11:14 AM EDT Stephane Caballero ([id number]) PRE OPERATIVE DIAGNOSIS TN (trigeminal neuralgia) [G50.0] POST OPERATIVE DIAGNOSIS TN (trigeminal neuralgia) [G50.0] PROCEDURE PERFORMED Procedure(s) (LRB): CRANIECTOMY SUBOCCIPITAL W/ DECOMPRESSION OR SECTION CRANIAL NERVE (Left) PRIMARY CLOSURE Yes INTRAOPERATIVE FINDINGS Left retrosigmoid craniotomy for microvascular decompression of CN V SURGEON Surgeons and Role: * Velma Julien MD - Primary ANESTHESIOLOGIST Anesthesiologist: Tabatha Alfaro MD, PhD Automatic Head Sawyer Assisting: Teresita Langston MD SURGICAL STAFF Swine Nutritionist: Ashtyn Ivory RN Relief Swine Nutritionist: Ashtyn Almeida RN Relief Scrub: Hany Cardozo Scrub Person: Elizabeth Henderson; Antonio Davis Resident Assisting: Bonilla Quezada MD COMPLICATIONS None ESTIMATED BLOOD LOSS 250 ml SPECIMENS No specimen sent * No specimens in log * Bonilla Quezada MD September 15, 2024 11:14 AM Cosigned by Velma Julien MD at 09/16/2024 8:02 AM EDT * Nursing Notes - Kassie Pelletier RN - 09/15/2024 9:36 AM EDT Update to plan of care / discharge plan. Patient is in surgery today. PCRM unable to complete initial assessment at this time. Discharge needs and disposition pending assessment postoperatively. PCRMwill continue to follow patient with multidisciplinary team for ongoing assessment of needs and disc harge planning. For evening and weekend discharge assistance please page the diamond sizer PCRM at [phone]. ANNE MARIE Gutierrez, RN-, [facility] Patient Care [place] Pager: [phone] documented in this encounterSt. John of God [facility]04-04-2025 Plan of care note* Plan of Care - Ashly Norwood RN - 09/17/2024 2:19 PM EDT Problem: Adult Inpatient Plan of Care Goal: Plan of Care Review Outcome: Adequate for Discharge Goal: Patient-Specific Goal (Individualized) Outcome: Adequate for Discharge Goal: Absence of Hospital-Acquired Illness or Injury Outcome: Adequate for Discharge Goal: Optimal Comfort and Wellbeing Outcome: Adequate for Discharge Goal: Readiness for Transition of Care Outcome: Adequate for Discharge [facility]04-04-[facility]25 History of Present illness Narrative* Ivy Lane RN - 09/17/2024 12:05 PM EDT Images from the original note were not included. Plan for the patient to DC today. BIOCHEMICAL ENGINEER PT/OT- cleared for home. Walker delivered to bedside. No needs from CM at this time. Ivy KENNEY RN, CDM Clinical Case Management [facility] * Bernardino Roman MD - 09/17/2024 6:42 AM EDT NEUROSURGERY PROGRESS NOTE: 09/17/24 S: NAEON, some migraines O: PE: NAD AOx3 PERRL EOMI FS TM FCx4 5/5 BUE 5/5 BLE SILT Dressing CDI, removed, incision healing well Temp: [97.5 F (36.4 C)-100.1 F (37.8 C)] 100.1 F (37.8 C) Pulse (Heart Rate): [61-91] 82 Resp Rate: [16-18] 18 BP: (118-177)/(60-98) 157/98 O2 Sat (%): [91 %-97 %] 93 % O2 Sat (%): 93 % (09/17 614) O2 Device: room air (09/17 614) I/O last 3 completed shifts: In: 1197.8 [P.O.:400; I.V.:697.8; IV Piggyback:100] Out: 850 [Urine:550; Emesis:300] ICP: No data recorded WBC/Hgb/Hct/Plts: 11.26/11.5/33.7/86 (09/17 8) Na/K+/Phos/Mg/Ca: 136/3.8/--/--/-- (09/17 8) Bun/Creat/Cl/CO2/Glucose: 12/0.80/100/25/162 (09/17 0009) A/P: Stephane Caballero is a 59 y.o. female 2 Days Post-Op from left MVD on 09/15/24 - advance as able - DC home today Neuro: neuro checks Cards: SBP<160 Resp: ra ID: [email or web address] FEN/GI: DIET CARB CONTROLLED PPX: SCDs, Pharm DVT ppx Dispo: home today Please page [phone] ([phone]) with questions. Principal Problem: Trigeminal neuralgia Present on Admission: Trigeminal neuralgia Complexity. Hypocalcemia - Continue to monitor and replete. Thrombocytopenia - Continue to monitor. Any conditions listed below are present on admission unless otherwise specified. . * JANELLE Emerson - 09/16/2024 2:23 PM EDT Reason for Consult: Advance Directives Consulted By: [facility] Packet Provided: Yes Questions Answered: Yes Completed HCPOA Information Original has been provided to patient. Additional copy has been provided to patient. Copy has been uploaded for inclusion in IHIS. Information has been updated in demographics. Holly ARROYO, OUTSIDE MACHINIST SUPERVISOR Construction Mgr Available by Secure Chat * RAMIRO Gao - 09/16/2024 12:18 PM EDT Acute Care Speech Therapy Screen Note ? BIOCHEMICAL ENGINEER speech/language/cognitive consult received and chart review completed this date. Pt is admitteds/p left MVD on 09/15/24. Head imaging is non-acute (please see CTH IMPRESSION: Postoperative findings, with a small amount of extra-axial blood deep to the craniotomy and moderate pneumocephalus. imaging for further details.) Per chart review and conversation with medical team, acute diagnoses do not warrant concern for neurologic change in cognitive function, no acute reports of changes in motor speech/verbal communication following surgery. Therefore, skilled BIOCHEMICAL ENGINEER evaluation and services are not warranted at this time. BIOCHEMICAL ENGINEER will complete consult. Time in: 1218 Time out: 1218 Speech-Language Pathologist Michelle Cochran MA, CCC-BIOCHEMICAL ENGINEER Pager: [phone] License: [email or web address] Email: [email or web address] *Available via [employer] Chat, Friday-Friday from 7:00am-3:30pm * Ivy Lane RN - 09/16/2024 11:56 AM EDT Discharge Planning Assessment Is the patient able to participate in the assessment?: Yes Care Management Plan Stephane is here for surgical intervention- Crainectomy suboccipital w/decompression or section cranial nerve BIOCHEMICAL ENGINEER PT/OT - Home Plan to dc home when medically ready Daughter will provide transportation. HCPOA requested, CM asked SW to assist. Initial Discharge Planning Expected Discharge Disposition: Home Transportation Available for Discharge: Private Vehicle Anticipated DME: walker Anticipated Services at Discharge: Outpatient clinical services (ie: lab draws, transfusions, injectables) Patient Assessment Completed: Initial Legal Next of Kin Does the patient have a Guardian?: No Spouse: No Adult Child(haily), List All Adult Children: Yes Name and Contact information: Marichuy Logan- [phone] Would you like to add additional adult children?: Yes Name and Contact information: Judith Thurman- [phone] Reviewed and Updated in Demographics? : Yes Advanced Care Planning Has the patient completed Advance Directives?: Not Completed Referral to Social Work for Advance Care Planning? : Patient Agreeable Medication Management Does the patient have prescription insurance coverage? : Yes Is the patient on Anticoagulation? : No [facility] [address] [place] [address] [address] [address] Living Environment and Support System Is the patient from a facility or penitentiary?: No Living Environment: House Patient Caregiving Responsibilities: Self, Child(haily) Patient-identified caregiver/support network: Family Services Does the patient use a home health or hospice agency?: No Current with dialysis?: No Does the patient use any community programs or services?: No Does patient use DME? : none Does the patient use oxygen?: No Does patient use medical supplies? : none Anticipated Changes Related to Illness/Injury? : No Initial ADLs Prior to Arrival What is the patient's baseline physical functioning prior to this acute illness?: independent What is the patient's baseline cognitive functioning prior to this acute illness?: independent Is the patient's baseline functioning changed by this acute illness? : No Concerns with patient being able to care for themselves at home? : No Line Builder Does the patient or vendor representatives express financial concerns? : Yes * Radha Simmons OT - 09/16/2024 8:50 AM EDT Acute Occupational Therapy Evaluation Prior Gross Functional Mobility: independent Current AM-PAC score(s): CURRENT AM-PAC Activity Raw Score: 20 Based on the above AM-PAC score(s) and OT clinical judgment, discharge destination recommendation is: Home Barriers to discharge home: Patient needs assistance with IADLs (see note below) Mobility equipment available at home: manual wheelchair ADL equipment available at home: grab bars, shower bench Equipment recommendations for discharge: Equipment issued: none Current therapy frequency recommendation(s) in acute: 1 time a week Activity Recommendations for outside of rehab session: 1 person with FWW Precautions and Weightbearing Status: OT Existing Precautions/Restrictions: fall Patient Safety Communication Prior to Visit: Nursing Subjective: Agreeable to therapy, pleasant and cooperative Pain: General Pain Documentation (Adult, OB, Peds) Presence of Pain: reports pain/discomfort Pain Location: head DVPRS (Defense and Veterans Pain Rating Scale) DVPRS: Rest: 7- severe pain Home Setting Residence: House Lives With: children (adult) Patient reported support for discharge planning: intermittent physical assist, intermittent supervision First floor setup: bedroom, walk-in shower Number of stairs to enter home: 0 Mobility Equipment Available: manual wheelchair ADL Equipment Available: grab bars, shower bench Previous Level of Function Gross Functional Mobility: independent Prior Level of Function Details: Pt reports she drives, is retired, reports no recent falls in pastmonths IADL History IADLs: independent Objective/Observation: Vitals/Vitals Responses to Treatment: VSS Vision Screen Currently wearing corrective lenses: Yes Visual Impairments Observed?: No Speech Speech: no gross deficits noted Hearing Hearing: no gross deficits noted Cognition Overall Cognitive Status: Within Functional Limits Arousal/Alertness: Appropriate responses to stimuli Orientation Level: Oriented X4 Following Commands: Follows all commands and directions without difficulty Safety Judgment: Good awareness of safety precautions Awareness of Errors: Good awareness of errors made Deficits: Fully aware of deficits Memory: Appears intact Problem Solving: Able to problem solve independently ADLs: ADL Assessment: LE Dressing Deficit ADL Anticipated Performance (ADLs not directly observed this session): Eating, Grooming, Bathing, UE Dressing, Toileting Eating Assistance: Independent Grooming Assistance: Stand by Bathing Assistance: Contact guard assist Bathing Intervention/Details: edu to use shower chair initially UE Dressing Assistance: Independent LE Dressing Assistance: Minimal LE Dressing Location: edge of bed LE Dressing Deficit: Don/doff R sock, Don/doff L sock LE Dressing Skilled Rationale (Verbal/Tactile/Visual/Demonstration): Technique of activity, Cues for increased safety, Setup, Supervision Toilet Assistance: Contact guard assist Extremity Assessments: RUE Assessment RUE Assessment: Within Functional Limits, Strength WFL LUE Assessment LUE Assessment: Within Functional Limits, Strength WFL Balance: Sitting Balance Static Sitting-Level of Assistance: Standby Dynamic Sitting-Level of Assistance: Contact guard Skilled Rationale: Hand placement, Verbal cues Standing Balance Static Standing-Level of Assistance: Contact guard Dynamic Standing-Level of Assistance: Contact guard Standing-Balance Support: Gait belt, Front-wheeled walker Skilled Rationale: Verbal cues, Hand placement, Sequencing, Positioning Neuro: Sensation Overall Sensation: Intact Fine Motor Coordination Additional Documentation: (Intact for ADLs) Mobility Assessment: Supine to Sit Mobility [place]: Supine->Sit: stand-by assist Bed Features/Set-up: Supine->Sit: Head of bed elevated Skilled Rationale: Sequencing, Hand placement, Verbal cues Transfer Assessment: Sit to Stand Transfer [place]: Sit->Stand: contact guard assist Assistive Device: Sit->Stand: gait belt Skilled Rationale: Hand placement, Verbal cues Functional Mobility: Functional Mobility [place]: Functional Mobility/Gait: (min progressing to stand by with FWW) Assistive Device: Functional Mobility/Gait: gait belt, front-wheeled walker Functional Mobility Distance: Distance needed for common household mobility Functional Mobility Deficits: Activity tolerance, Balance, Generalized weakness Functional Mobility Skilled Rationale: Cues for increased safety, Verbal cues, Technique of activity CURRENT AM-PAC Daily Activity Inpatient Short Form Putting on/Taking Off Lower Body Clothin - A Little Assistance Bathin - A Little Assistance Toiletin - A Little Assistance Putting on/Taking Off Upper Body Clothin - A Little Assistance Groomin - No Assistance Eatin - No Assistance CURRENT AM-PAC Activity Raw Score: 20 CURRENT AM-PAC Activity Functional Limitation/Modifier: 38.32% Currently Impaired in Daily Activity- Assessment & Plan: Patient was admitted for L MVD, Trigeminal nerualgia and seen for therapy evaluation related to ADLperformance, transfers. Exam findings include impairments in: aerobic capacity, balance, coordination, endurance, strength,transfers. These impairments contribute to occupational performance limitations including bathing, toileting, functional mobility, ADL transfers, grooming, dressing. Patient will benefit from skilled occupational therapy to address these impairments, occupational performance limitations, and participation restrictions. Patient's rehab potential is: good. Planned Therapy Interventions (OT Eval): ADL retraining, IADL retraining, balance training, transfer training Patient Instruction/Education this session: Learners: Patient Education provided: Activity outside of therapy Teaching method: Verbal Education/Instruction Learner response: States/Identifies/Teaches back Plan for next session: OT to monitor Acute OT Goals Plan of Care by Radha Simmons OT at 09/16/2024 11:36 AM Version 1 of 1 Problem: OT - ADLs Goal: Lower Body Dressing - Patient will complete lower body dressing tasks with modified independence using adaptive equipment/compensatory strategies as needed for improved ability to complete self-care activities. Outcome: Ongoing Goal: Bathing - Patient will perform full body bathing routine with modified independence while seated for improved ability to complete self-care activities Outcome: Ongoing Problem: OT - Balance Goal: Balance - Standing - Patient will perform 10 minutes of functional task in standing with modified independence and good balance to promote safety and improved balance required for self-care activities. Outcome: Ongoing OT treatment consisted of the following to work and progress towards the above goal(s): OT Evaluation and Treatment Time OT Evaluation (Moderate) Time Entry: 11 Evaluating Therapist: Radha Simmons OT Additional Details: OT Co-Eval/Treatment Information Co-evaluation/co-treatment performed?: Yes, simultaneous billable skilled care was necessary due tomedical complexity and functional deficits Other discipline: PT Rationale for need to co-eval/treat: postural control OT Evaluation Complexity Occupational Profile and Client History: Moderate - expanded history Assessment of Occupational Performance: Moderate (3-5 performance deficits) Clinical Decision/Performance Deficits: Moderate (detailed assessments w/several treatment options) Time In: 0839 Time Out: 0850 Total Visit Time: 11 minutes Total Treatment Time (skilled, billable minutes): 11 minutes PPE used during patient interaction: gloves Patient location at end of session: chair Alarms on at end of session: none Needs in reach. Upon discontinuation of Acute Care Occupational Therapy Services or patient discharge from the hospital this note represents the current Occupational Therapy Discharge Summary. * Amber Blake, PT - 09/16/2024 8:41 AM EDT Acute Physical Therapy Evaluation Prior Gross Functional Mobility: independent Current AM-PAC score(s): CURRENT AM-PAC Mobility Raw Score: 18 Based on the above AM-PAC score(s) and PT clinical judgment, patient is a good candidate for discharge to (anticipate home with home health PT, increased initial supervision with mobility from familypending progression with therapy this hospitalization) Mobility equipment available at home: manual wheelchair ADL equipment available at home: grab bars, shower bench Equipment needed for discharge: 2 wheeled walker Current therapy frequency recommendation in acute: PT Therapy Frequency: 5 times a week Precautions and Weightbearing Status: Existing Precautions/Restrictions: fall, no known precautions/restrictions No critical lines at this time Patient Safety Communication Prior to Visit: Nursing Current brace/orthoses: (none ordered) Subjective: Pt agreeable to session Pain: General Pain Documentation (Adult, OB, Peds) Presence of Pain: reports pain/discomfort Pain Location: head DVPRS (Defense and Veterans Pain Rating Scale) DVPRS: Rest: 7- severe pain Home Setting Residence: House Lives With: children (adult) Patient reported support for discharge planning: intermittent physical assist, intermittent supervision First floor setup: bedroom, walk-in shower Number of stairs to enter home: 0 Mobility Equipment Available: manual wheelchair ADL Equipment Available: grab bars, shower bench Previous Level of Function Gross Functional Mobility: independent Prior Level of Function Details: Pt reports she drives, is retired, reports no recent falls in pastmonths Objective/Observation: Vitals/Vitals Responses to Treatment: VSS, no adverse reaction to therapy. Pt denies dizziness withmobility or pain spike. Stable at session end, no additional complaints or concerns O2 Device: room air Cognition Overall Cognitive Status: Within Functional Limits Arousal/Alertness: Appropriate responses to stimuli Orientation Level: Oriented X4 Following Commands: Follows all commands and directions without difficulty Cognition Comments: pt with good safety awareness and insight to deficits. no command following deficits noted Vision Screen Currently wearing corrective lenses: Progressive lenses Visual Impairments Observed?: No Speech Speech: no gross deficits noted Hearing Hearing: no gross deficits noted Extremity Assessments: RLE Assessment RLE Assessment: Within Functional Limits Right LE Assessment Details: grossly 4/5 MMT LLE Assessment LLE Assessment: Within Functional Limits Left LE Assessment Details: grossly 4/5 MMT Sensation Overall Sensation: Intact Sensation Comments: pt denies N/T Mobility Assessment: Supine to Sit Mobility [place]: Supine->Sit: stand-by assist Bed Features/Set-up: Supine->Sit: Head of bed elevated Skilled Rationale: Positioning, Sequencing, Verbal cues, Cues for increased safety, Technique of activity Skilled Intervention/Details: Supine->Sit: logroll x1 to right, no overt LOB. pt denies dizzinesor nausea with transfer Sit to Supine Mobility [place]: Sit->Supine: not tested Skilled Intervention/Details: Sit->Supine: pt in recliner at session end, needs in reach, no additional complaints Balance: Sitting Balance Static Sitting-Level of Assistance: Standby Dynamic Sitting-Level of Assistance: Contact guard Skilled Rationale: Positioning, Sequencing, Verbal cues, Cues for increased safety, Upright gaze/neck extension Sitting Balance Skilled Intervention/Details: cues for safety, no overt LOB sitting unsupported WOB Standing Balance Static Standing-Level of Assistance: (CGA with DIRECTOR PEOPLESO[employer], progressed to SBA using 2WW) Dynamic Standing-Level of Assistance: Contact guard Standing-Balance Support: Gait belt, Front-wheeled walker Skilled Rationale: Positioning, Sequencing, Verbal cues, Cues for increased safety, Technique of activity Standing Balance Skilled Intervention/Details: pt with narrow TOÑA, cues for full extension to upright. improvement in posture and balance noted with 2WW provided Transfer Assessment: Sit to Stand Transfer [place]: Sit->Stand: stand-by assist Assistive Device: Sit->Stand: gait belt Skilled Rationale: Positioning, Sequencing, Verbal cues, Cues for increased safety, Technique of activity, Arm in arm Skilled Intervention/Details: Sit->Stand: x1 from EOB, cues for safety Stand to Sit Transfer [place]: Stand->Sit: stand-by assist Assistive Device: Stand->Sit: gait belt, front-wheeled walker Skilled Rationale: Positioning, Sequencing, Verbal cues, Cues for increased safety, Technique of activity, Controlled descent for sitting Skilled Intervention/Details: Stand->Sit: x1 to recliner, cues for proximity of recliner, hand placement, controlled eccentric descent for safety Gait/Functional Mobility: Gait Assessment [place]: Gait: (CGA with DIRECTOR PE[employer], progresses to SBA with 2WW use) Assistive Device: Gait: gait belt, front-wheeled walker Ambulation Distance (Feet): 30 Gait Deviations Identified: decreased donta, decreased gait speed, shuffling, flexed posture Gait Skilled Rationale: verbal, proximity of assistive device, increase foot clearance, upright posture Skilled Intervention/Details - Gait: pt with improved functional independence with 2WW provided, self limiting this date due to reports of light sensitivity in hallway, requets to return to room for recovery. Pt without overt LOB using 2WW. Pt educated on this PT rec to use 2WW in home env upon eventual discharge with incr initial supervision fro mobility from franko pt acknowledges and agreeable Stairs: Stairs Assessment [place]: Stair Negotiation: not tested Skilled Intervention/Details - Stairs: pt denies stairs in home env Outcome Score(s): CURRENT [facility] Basic Mobility Inpatient Short Form Turning over in bed: 3 - A Little Assistance Moving from lying on back to sittin - A Little Assistance Moving to and from bed to chair: 3 - A Little Assistance Sitting/standing from chair: 3 - A Little Assistance Walk in hospital room: 3 - A Little Assistance Climbing 3-5 steps with a railin - A Little Assistance CURRENT -[facility] Mobility Raw Score: 18 CURRENT -[facility] Mobility Functional Limitation: 46.58% Impaired in Basic Mobility Interventions: Pt educated on PT role/POC, recommendation for 2WW in home env, self monitoring symptoms for safety/ seated rest break. Importance of staff assist oob, fall prevention in home env. Pt acknowledges and agreeable to all Assessment & Plan: Patient was admitted for "1 Day Post-Op from left MVD on 09/15/24 " and seen for therapy evaluation related to assess Pt functional mobility, ROM, strength, as they relate to safety, independence with functional mobility and appropriate discharge destination Exam findings include impairments in: Posture, Transfers, Gait/Locomotion, Strength, ROM (range of motion), Balance, Pain. These impairments contribute to functional limitations including Increased fall risk, Decreased functional mobility. Current clinical presentation is Evolving - changing/inconsistent clinical characteristics (Moderate). Patient history factors impacting Plan Of Care include "trigeminal neuralgia) " . Patient will benefit from skilled physical therapy to address these impairments, functional limitations, and participation restrictions and has good rehab potential to achieve therapy goals. Vitals WFL, no adverse reaction to therapy during session, pt agreeable to therapy session. Pt educated on all mobility precautions at session start and maintained throughout session. Session focus on Bed mobility, Dynamic and static sitting balance, Activity tolerance, Dynamic and static standing balance , Assistive device training , Sit to stands, and Pt education for carryover to Strength Balance Safety with functional mobility in home environment. Pt will continue to benefit from skilled physical therapy during this hospitalization to address remaining deficits in Strength, Balance , Functional activity tolerance , and Safety with functional mobility in home environment as they relate to safety and independence with functional mobility for overall carryover to improvement in quality of life. During session pt educated on Importance of staff assistance, recommended assistive device and call light use with all OOB mobility , Fall prevention, assistive device use recommendation in home environment, and Role of PT/POC . At session end, pt in recliner, patient with needs in reach, noadditional complaints or questions, all lines, tubes, drains intact. RN notified and aware of all session details, pt condition, pt vitals, and PT mobility recommendations for nursing staff via handoff at session end. Planned Therapy Interventions: balance training, functional activity tolerance, gait training, bed mobility training, transfer training, strengthening Patient Instruction/Education this session: Learners: Patient Education provided: Activity outside of therapy, Balance training, Functional transfers, Bed mobility, Discharge recommendations, Home safety precautions, Role of this discipline, Safety, Plan of care Teaching method: Verbal Education/Instruction Learner response: Applies knowledge Learning preferences: Auditory Learning considerations: No barriers/ready to learn Plan for next session: progress gait and assitive device trial Acute PT Goals Plan of Care by Amber Blake, PT at 09/16/2024 8:41 AM Version 1 of 1 Problem: PT - General Goals Goal: Supine <-> Sit Transfers - Patient will perform supine to/from sit transfers with modified independence and without use of hospital bed features in order to improve functional mobility and safety. Outcome: Ongoing Goal: Sit <-> Stand Transfers - Patient will perform sit to/from stand transfers with modified independence and front-wheeled walker in order to improve functional mobility and safety. Outcome: Ongoing Goal: Standing Endurance/Balance - Patient will perform standing balance tasks for 5 min with modified independence and least restrictive device Outcome: Ongoing Goal: Ambulation - Patient will ambulate 100 feet with modified independence and least restrictive device to improve ability to safely navigate home and community. Outcome: Ongoing PT treatment consisted of the following to progress towards the above goal(s): PT Evaluation and Treatment Time PT Evaluation (Moderate) Time Entry: 10 Evaluating Therapist: Amber Blake PT Additional Details: PT Co-Eval/Treatment Information Co-evaluation/co-treatment performed?: Yes, simultaneous billable skilled care was necessary due tomedical complexity and functional deficits Other discipline: OT Rationale for need to co-eval/treat: postural control Co-treatment goal focus: balance, mobility, transfer Evaluation Complexity Components History: Moderate (1-2 personal factors and/or comorbidities) Body Systems Review: Moderate (Addressing a total of 3 or more elements) Clinical Presentation: Evolving - changing/inconsistent clinical characteristics (Moderate) Clinical Decision Making Complexity: Moderate Time In: 0841 Time Out: 0851 Total Visit Time: 10 minutes Total Treatment Time (skilled, billable minutes): 10 minutes PPE used during patient interaction: gloves Patient location at end of session: chair, RN aware, lines intact Alarms on at end of session: none, none altered, RN aware Needs in reach. Upon discontinuation of Acute Care Physical Therapy Services or patient discharge from the hospitalthis note represents the current Physical Therapy Discharge Summary. * Bernardino Roman MD - 09/16/2024 6:44 AM EDT NEUROSURGERY PROGRESS NOTE: 09/16/24 S: NAEON, endorsing significant improvement in facial pain. Completely resolved O: PE: NAD AOx3 PERRL EOMI FS TM FCx4 5/5 BUE 5/5 BLE SILT Dressing CDI Temp: [97.4 F (36.3 C)-99.5 F (37.5 C)] 99 F (37.2 C) Pulse (Heart Rate): [77-104] 79 Resp Rate: [12-32] 16 BP: (111-159)/(59-92) 111/65 O2 Sat (%): [91 %-100 %] 94 % O2 Sat (%): 94 % (09/16 599) O2 Device: room air (09/16 599) I/O last 3 completed shifts: In: 2523.7 [P.O.:550; I.V.:1272.9; Blood:500; IV Piggyback:200.8] Out: 3800 [Urine:3700; Emesis:100] ICP: No data recorded WBC/Hgb/Hct/Plts: 12.41/10.9/31.3/97 (09/16 16) Na/K+/Phos/Mg/Ca: 137/4.0/--/--/-- (09/16 16) Bun/Creat/Cl/CO2/Glucose: 14/0.89/100/27/193 (09/16 16) Ptt/Pt/Inr: 30.2/15.1/1.2 (09/15 114) A/P: Stephane Caballero is a 59 y.o. female 1 Day Post-Op from left MVD on 09/15/24 - advance as able Neuro: neuro checks Cards: SBP<160 Resp: ra ID: [email or web address] FEN/GI: DIET CARB CONTROLLED PPX: SCDs, Pharm DVT ppx Dispo: pending Please page NS1 ([phone]) with questions. Principal Problem: Trigeminal neuralgia Present on Admission: Trigeminal neuralgia Complexity. Hypocalcemia - Continue to monitor and replete. Thrombocytopenia - Continue to monitor. Any conditions listed below are present on admission unless otherwise specified. . [facility]* Nursing Notes - Addie Alexander RN - 09/17/2024 3:02 AM EDT Paged: [facility] rm [address], Pt been c/o of TAYLOR practically all night. she says Imitrex would help. I noticed she had it ordered once yesterday for 50mg. Any chance you can order it again right now? Addie GIL [phone] [facility]04-03-2025 Plan of care note* Plan of Care - Lien Page RN - 09/16/2024 6:31 PM EDT Problem: Adult Inpatient Plan of Care Goal: Plan of Care Review Outcome: Progressing Goal: Patient-Specific Goal (Individualized) Outcome: Progressing Goal: Absence of Hospital-Acquired Illness or Injury Outcome: Progressing Goal: Optimal Comfort and Wellbeing Outcome: Progressing Goal: Readiness for Transition of Care Outcome: Progressing Problem: Swallowing Impairment Goal: Optimal Eating/Swallowing without Aspiration Outcome: Completed [facility]04-03-2025 Plan of care note* Plan of Care - Radha Simmons OT - 09/16/2024 11:36 AM EDT Problem: OT - ADLs Goal: Lower Body Dressing - Patient will complete lower body dressing tasks with modified independence using adaptive equipment/compensatory strategies as needed for improved ability to complete self-care activities. Outcome: Ongoing Goal: Bathing - Patient will perform full body bathing routine with modified independence while seated for improved ability to complete self-care activities Outcome: Ongoing Problem: OT - Balance Goal: Balance - Standing - Patient will perform 10 minutes of functional task in standing with modified independence and good balance to promote safety and improved balance required for self-care activities. Outcome: Ongoing [facility]04-03-2025 Plan of care note* Plan of Care - Amber Blake, PT - 09/16/2024 8:41 AM EDT Problem: PT - General Goals Goal: Supine <-> Sit Transfers - Patient will perform supine to/from sit transfers with modified independence and without use of hospital bed features in order to improve functional mobility and safety. Outcome: Ongoing Goal: Sit <-> Stand Transfers - Patient will perform sit to/from stand transfers with modified independence and front-wheeled walker in order to improve functional mobility and safety. Outcome: Ongoing Goal: Standing Endurance/Balance - Patient will perform standing balance tasks for 5 min with modified independence and least restrictive device Outcome: Ongoing Goal: Ambulation - Patient will ambulate 100 feet with modified independence and least restrictive device to improve ability to safely navigate home and community. Outcome: [facility]ing [facility]* Nursing Notes - Ashly Mills RN - 09/15/2024 7:23 PM EDT Paged MD Gage: [phone]: Pt. with nausea and vomiting. Nothing ordered. Can you please place an order for zojordi yoko. Thanks LOUISE Limon [phone] [facility] Note* Nursing Notes - Bonilla Cervantes RN - 09/15/2024 3:34 PM EDT On admission to [facility], from PACU a dual RN initial assessment of skin condition was performed by Bonilla Cervantes RN and Lien Jett Skin Assessment: Skin within defined limits:Yes Germán Score: 22 LDA Added:No Bonilla Cervantes RN [facility]04-02-2025 Nurse Note* Nursing Notes - Marina Lopez RN - 09/15/2024 11:28 AM EDT 1128: Patient arrives in [facility] PACU from OR via gurney with side rails up x2 with HOB >30 degrees, accompanied by Anesthesiologist:. Patient placed on monitors, VSS. Report received from anesthesia. Patient assessed, see assessment. Plan for admission, labs in PACU, CT of head within 2 hours. A-line can be removed. 1200: Updated daughter via text. 1301: page sent to MD Adolph: Post-op labs resulted and CT of head completed for Stephane Caballero. [phone], [place]. 1304: Page returned by MD Adolph, labs and CT of head cleared. 1313: Called surgery waiting to update daughter. 1339: page sent to MD Adolph: Page regarding Stephane Caballero. She is requesting her migraine medication, naratriptan 2.5 mg. She can't take Tylenol due to her liver transplant. [phone], TY. [facility]04-02-2025 Surgery Postoperative evaluation and management note* Brief Op Note - Bonilla Quezada MD - 09/15/2024 11:14 AM EDT Stephane Caballero ([id number]) PRE OPERATIVE DIAGNOSIS TN (trigeminal neuralgia) [G50.0] POST OPERATIVE DIAGNOSIS TN (trigeminal neuralgia) [G50.0] PROCEDURE PERFORMED Procedure(s) (LRB): CRANIECTOMY SUBOCCIPITAL W/ DECOMPRESSION OR SECTION CRANIAL NERVE (Left) PRIMARY CLOSURE Yes INTRAOPERATIVE FINDINGS Left retrosigmoid craniotomy for microvascular decompression of CN V SURGEON Surgeons and Role: * Velma Julien MD - Primary ANESTHESIOLOGIST Anesthesiologist: Tabatha Alfaro MD, PhD Automatic Head Sawyer Assisting: Teresita Langston MD SURGICAL STAFF Swine Nutritionist: Ashtyn Ivory RN Relief Swine Nutritionist: Ashtyn Almeida RN Relief Scrub: Hany Cardozo Scrub Person: Elizabeth Henderson; Antonio Davis Resident Assisting: Bonilla Quezada MD COMPLICATIONS None ESTIMATED BLOOD LOSS 250 ml SPECIMENS No specimen sent * No specimens in log * Bonilla Quezada MD September 15, 2024 11:14 AM Cosigned by Velma Julien MD at 09/16/2024 8:02 AM EDT [facility] Work Phone: 1(603) 667-277204-02-2025 Hospital Discharge instructions* Discharge Instructions* Kassie Pelletier RN - 09/15/2024 9:37 AM EDT Images from the original note were not included. Discharge instructions following your CRANIOTOMY surgery: Education Regarding your Medication: If you are taking aspirin, clopidogrel (Plavix), warfarin (Coumadin) or other blood thinners, you must talk to your surgeon about when to restart these medicines. Unless approved by your surgeon, do not take any non-steroidal anti-inflammatory drugs, called NSAIDs. These medicines include ibuprofen (Motrin or Advil), naprosyn (Naproxen or Aleve), and arthritismedications such as Celebrex for several weeks following surgery. Please discuss with your neurosurgeon prior to taking any of these medications. PAIN MEDICATION: As first line pain medication, please use: Tylenol Extra-strength/Acetaminophen, 2 tablets every 4-6 hours as needed for mild pain. DO NOT TAKE MORE THAN 4000MG PER DAY. A prescription for a stronger pain medicine has been sent home with you. Please use this as needed as a second pain medication for breakthrough pain between Tylenol doses. Pain medication is typically not refilled by your neurosurgeon. If your pain continues for longer than 1-2 weeks after surgery, please see your primary care physician for ongoing pain management. Narcotic pain medication may cause constipation. Drink at least 6-8 cups of fluid each day to prevent constipation. Be sure to take stool softeners or laxatives while you are on narcotic pain medication. Follow the package directions or consult with your local pharmacist if you have questions Take pain medication with food to prevent nausea. Wean yourself off narcotics as soon as you are able. These can cause rebound headaches and may evenmake headaches worse. Do not drink any alcoholic beverages until approved by your surgeon. This may thin your blood and increase your risk of bleeding. Do not drive after taking prescription pain medicine as it can make you drowsy. Home Medicines-New Your medications may have been changed during your hospital stay. Review your list of medicines andonly take those medicines on the list. Do not take any other medicines unless you first check with your doctor. Home Medicines-Resume If instructed to do so by your doctor, resume the medicines that you were taking at home before your hospital stay. QUESTIONS ABOUT YOUR MEDICATIONS: - If you have questions about your medications, please call your doctor or nurse, at the numbers provided - Always keep an updated list of your current medications with you, and bring it to your doctor's appointments. The list should include: What medication (ex. Brand/Generic Name) How you take your medication (ex. By Mouth) When you take your medication/ How often do you take your medication (ex. Once a day/ or ex. as needed for pain, etc) When was the last time you took your medication Activity: To protect your health, follow these guidelines from your surgeon: For 2 weeks after surgery, keep your head elevated to prevent swelling. Use extra pillows while sleeping and do not lie flat. Walk as you are able. Start with short distances and work up to longer times standing and walking. Tell your surgeon about your progress at your follow-up visit. Use the hand railing for support when going up and down stairs. It is normal for your energy level and sleep patterns to change after surgery. These things slowly return to normal as you start your usual activities. Get extra sleep at night and take naps during the day while you heal. Remember, everyone s recovery is different, so don t get discouraged. You may do light housework, such as dusting, but not vacuuming. Limit lifting, pushing or pulling to 5 pounds or less. This is about gallon of milk. A gallon weighs 8 pounds and will be too heavy. Do not do any activity or exercise that makes your sweat or bend over so your head is lower than your heart. Do not drive or operative power tools or machinery until approved by your surgeon. If/when cleared for driving, your physician can let you know if a driving evaluation is needed. For one month following surgery, do not sit in a car for more than 45 minutes. If you take a longertrip than 60 minutes, stop every hour and get out and walk around for a few minutes. Avoid all tub baths, hot tubs and swimming pools until your surgeon has given approval to soak the incision in water. Your surgeon will instruct you when it is safe to return to work. Diet: You may resume your home diet. It is important to get enough fluid to stay hydrated to prevent dizziness and falling. If you are diabetic, it is important to maintain tight blood sugar control to promote wound healing. Heart Healthy: Choose healthy fats and oils such as canola or olive oil. Limit high cholesterol foods. Avoid added salt and caffeine in your foods. When to call your Surgeon's Office: If you have one or more of these signs call your surgeon s office. The phone number will be under the follow up section of your discharge instructions: Temperature of 100.4 degrees Fahrenheit or greater (38 degrees Celsius) Drainage from your incision Skin around the incision becomes red, warm, swollen or painful Feeling any fluid dripping from your nose or your ears When to go to the Emergency Department: If you have any of these signs go to the nearest emergency department or call 911 right away: Any change in alertness; feel more sleepy than usual, restless and/or confused Breathing problems Chest pain (including chest pressure or tightness) Vision problems or a change in vision New problems with weakness, numbness, balance, walking or inability to move an arm or leg. Problemsmay be only on one side of the body. Change in face appearance, such as drooping on one side of the face Not able to speak or problems when talking Trouble swallowing Seizures Nausea and vomiting that continues or gets worse Severe headache or headache with a stiff neck Wound Care: Staple/stitches Removal: Your nicole/sutures need to remain in place for approximately 14 days. These should not be removed before xxx. To have them removed you can: Call your surgeon s office to schedule a time Call your primary care doctor to have them removed at least 10 days after surgery, if approved by your surgeon. Incision Care: Check your incision every day for redness or drainage. It is normal to have some bruising, swellingor tenderness around the incision. Your dressing will be removed prior to discharge. NEVER leave a wet or dirty dressing on your incision. If your incision is damp or dirty it can delay healing and lead to infection. Do not scratch or pick at the incision as it heals. Protect your incision by: Cleaning the area around the wound and putting on a new dressing Taking a shower if it has been 3 or more days after surgery Do not take a tub bath or submerge your incision under water Dry the wound completely Do not apply any of these products to the wound unless told to do so by your surgeon: lotions, creams, ointments (such as Neosporin), alcohol, hydrogen peroxide, powder, or sunscreen Avoid wearing glasses after surgery. If glasses are needed, please use gauze at the buddhist/arm end of the glasses the incision from the glasses Protect your wound from sun exposure and avoid all sun if possible. If you do go out in the sun, wear a CLEAN, very loose fitting hat or scarf and immediately remove if when you are inside. Tobacco use delays healing. If you need help with quitting tobacco, please talk with your doctor. Showering: For the first 2 days or 48 hours after surgery, do sponge baths. Avoid getting the incision and dressing wet. For example, if you had your surgery on Friday, do only sponge baths until Friday. Beginning the third day after surgery: If you are sent home with a dressing covering your incision, you may remove the dressing once you are home. Your wound may be left open to air after that. You may take a shower and wash your hair. Do not take a tub bath. Use baby shampoo and gently wash your hair and the incision. Then rinse it well with water. When drying off, use a clean towel. Very gently pat the wound dry. Do not rub with a towel. It is also okay to let the wound air dry. If your wound is closed with sutures or nicole, they need to be removed in approximately 14 days. NEUROSURGERY CONTACT INFORMATION Emergency medical issues: Call 911 Non-emergent medical questions (including questions about medications or to change an appointment): Fri- Fri 8:00 am to 4:00 pm: Call your neurosurgeons office at P: [phone] Evenings, weekends and holidays: Call your neurosurgeons office and your call will be directed to the answering service [facility] paperwork or forms: Call [phone] Form completion will take 10 to 14 business days The foster care case manager or social services designee will not have updates related to the status of your paperwork. Please contact your physician's office directly. Medical records or imaging disks: Call [phone] Transition Information: Your Production Quality Manager (PCRM) has arranged your appointments for follow up based on your preference of where you would like to continue your care. If you are unable to attend appointments that have been arranged for you, it is your responsibilityto call to reschedule at least 48 hours prior to the appointment date. Your PCRM may have arranged additional care needs such as home health, infusion services, or durable medical equipment based on your preference and options available by your insurance and local agencies. Your After Visit Summary (AVS) has provided you with instructions for your discharge. It is your responsibility to ask questions if you have any. Please contact your medical care team at the numbers listed if you should have any additional questions. Talk to your physician or others on your health care team if you have any questions. You may request more written information from the [email or web address] Information at or email: [email or web address] IMPORTANT: Automated Post Discharge Call Patient Information As part of your care, we will call you at the primary number we have on file, the day after you aredischarged at 9:30 a.m. to check on you. Please expect a two-minute automated telephone call from the hospital. This call will come from [phone]. If you miss the first call, the hospital will text you instead of sending an automated call. You will have the option of responding to the text with your cell phone. If a third attempt is needed, youwill receive a call. By answering the phone evaluation, a [facility] nurse will be notified if you have any questions or needs and call you back. If you have an immediate medical need call your doctor's office, or if you have a medical emergencycall 911. [facility] Nurse Note* Nursing Notes - Kassie Pelletier RN - 09/15/2024 9:36 AM EDT Update to plan of care / discharge plan. Patient is in surgery today. PCRM unable to complete initial assessment at this time. Discharge needs and disposition pending assessment postoperatively. PCRMwill continue to follow patient with multidisciplinary team for ongoing assessment of needs and disc harge planning. For evening and weekend discharge assistance please page the diamond sizer PCRM at [phone]. ANNE MARIE Gutierrez, RN-, [facility] [address] Patient Care [place] Pager: [phone] [facility]04-02[facility] History and physical note* Danita Vivas MD - 09/15/2024 6:52 AM EDT Neurosurgery Preoperative History and Physical Date of surgery: 09/15/2024 HPI: Stephane Caballero is a 59 y.o. female with: TN (trigeminal neuralgia) [G50.0] here for Proc Description: CRANIECTOMY SUBOCCIPITAL W/ DECOMPRESSION OR SECTION CRANIAL NERVE; LEFTSUBOCCIPITAL CRANIOTOMY AND MICROVASCULAR DECOMPRESSION with Velma Julien MD. Indications: TN (trigeminal neuralgia) [G50.0] Allergies: Allergies Allergen Reactions Benadryl [Diphenhydramine] Confusion Compazine [Prochlorperazine] Confusion Sulfamethoxazole-Trimethoprim Fever Fever and elevated LFTs (presumed). If needs Bactrim in future, challenging again is reasonable. Topiramate Hallucination Lorazepam Anxiety and Confusion Other Reaction(s): Other (See Comments) Agitation Promethazine Confusion Other Reaction(s): Other (See Comments) Agitation Infusions: phenylephrine remifentanil Sodium chloride 0.9% Scheduled Meds: PRN Meds: ceFAZolin Home Meds: Current Outpatient Medications Medication Instructions Albuterol 108 (90 Base) MCG/ACT Aero Soln inhaler 1 puff, Inhalation, EVERY 4 HOURS NEEDED Citalopram (CELEXA) 40 mg, DAILY EVERY MORNING Entecavir (BARACLUDE) 0.5 mg, DAILY EVERY MORNING Fluticasone Furoate-Vilanterol (Breo Ellipta) 100-25 MCG/ACT Aerosol Powder, breath activated 1 puff, DAILY medicinal cannabis (MEDICINAL MARIJUANA) DAILY AT BEDTIME metFORMIN (GLUCOPHAGE) 500 mg, DAILY EVERY MORNING Mirabegron ER (MYRBETRIQ) 50 mg, EVERY EVENING Mycophenolate mofetil (CELLCEPT) 500 mg, 2 TIMES DAILY naratriptan (AMERGE) 2.5 mg, NEEDED Pantoprazole (PROTONIX) 40 mg, DAILY EVERY MORNING Tacrolimus (PROGRAF) 2 mg, 2 TIMES DAILY zolpidem (AMBIEN) 10 mg, DAILY AT BEDTIME NEEDED Vitals: BP 150/79 (BP Location: Left arm, BP Position: Lying) Pulse 82 Temp 98.1 F (36.7 C) (Oral) Resp 16 Ht 1.626 m (5' 4") Wt 63.9 kg (140 lb 14.4 oz) SpO2 99% BMI 24.19 kg/m Smoking Status Never Physical Exam: NAD AOx3 PERRL EOMI FS TM FCx4 5/5 BUE 5/5 BLE SILT A/P: Stephane Caballero is a 59 y.o. female here for Proc Description: CRANIECTOMY SUBOCCIPITAL W/ DECOMPRESSION OR SECTION CRANIAL NERVE; LEFT SUBOCCIPITAL CRANIOTOMY AND MICROVASCULAR DECOMPRESSION. - to OR Cosigned by Velma Julien MD at 09/16/2024 8:[address] [facility]04-02-2025 History and physical note* Danita Vivas MD - 09/15/2024 6:52 AM EDT Neurosurgery Preoperative History and Physical Date of surgery: 09/15/2024 HPI: Stephane Caballero is a 59 y.o. female with: TN (trigeminal neuralgia) [G50.0] here for Proc Description: CRANIECTOMY SUBOCCIPITAL W/ DECOMPRESSION OR SECTION CRANIAL NERVE; LEFTSUBOCCIPITAL CRANIOTOMY AND MICROVASCULAR DECOMPRESSION with Velma Julien MD. Indications: TN (trigeminal neuralgia) [G50.0] Allergies: Allergies Allergen Reactions Benadryl [Diphenhydramine] Confusion Compazine [Prochlorperazine] Confusion Sulfamethoxazole-Trimethoprim Fever Fever and elevated LFTs (presumed). If needs Bactrim in future, challenging again is reasonable. Topiramate Hallucination Lorazepam Anxiety and Confusion Other Reaction(s): Other (See Comments) Agitation Promethazine Confusion Other Reaction(s): Other (See Comments) Agitation Infusions: phenylephrine remifentanil Sodium chloride 0.9% Scheduled Meds: PRN Meds: ceFAZolin Home Meds: Current Outpatient Medications Medication Instructions Albuterol 108 (90 Base) MCG/ACT Aero Soln inhaler 1 puff, Inhalation, EVERY 4 HOURS NEEDED Citalopram (CELEXA) 40 mg, DAILY EVERY MORNING Entecavir (BARACLUDE) 0.5 mg, DAILY EVERY MORNING Fluticasone Furoate-Vilanterol (Breo Ellipta) 100-25 MCG/ACT Aerosol Powder, breath activated 1 puff, DAILY medicinal cannabis (MEDICINAL MARIJUANA) DAILY AT BEDTIME metFORMIN (GLUCOPHAGE) 500 mg, DAILY EVERY MORNING Mirabegron ER (MYRBETRIQ) 50 mg, EVERY EVENING Mycophenolate mofetil (CELLCEPT) 500 mg, 2 TIMES DAILY naratriptan (AMERGE) 2.5 mg, NEEDED Pantoprazole (PROTONIX) 40 mg, DAILY EVERY MORNING Tacrolimus (PROGRAF) 2 mg, 2 TIMES DAILY zolpidem (AMBIEN) 10 mg, DAILY AT BEDTIME NEEDED Vitals: BP 150/79 (BP Location: Left arm, BP Position: Lying) Pulse 82 Temp 98.1 F (36.7 C) (Oral) Resp 16 Ht 1.626 m (5' 4") Wt 63.9 kg (140 lb 14.4 oz) SpO2 99% BMI 24.19 kg/m Smoking Status Never Physical Exam: NAD AOx3 PERRL EOMI FS TM FCx4 5/5 BUE 5/5 BLE SILT A/P: Stephane Caballero is a 59 y.o. female here for Proc Description: CRANIECTOMY SUBOCCIPITAL W/ DECOMPRESSION OR SECTION CRANIAL NERVE; LEFT SUBOCCIPITAL CRANIOTOMY AND MICROVASCULAR DECOMPRESSION. - to OR Cosigned by Velma Julien MD at 09/16/2024 8:02 AM EDT documented [facility] Nurse Surgical operation note* Ashtyn Ivory RN - 09/15/2024 5:50 AM EDT -Family notified of surgery start 0847. -Family updated 1030. -Report sheet sent to PACU 1035. -15 minute notice given to PACU charger operator helper 1102. [facility] Nurse Note* Ashtyn Ivory RN - 09/15/2024 5:50 AM EDT -Family notified of surgery start 0847. -Family updated 1030. -Report sheet sent to PACU 1035. -15 minute notice given to PACU charger operator helper 1102. * Sandrita Waters RN - 09/15/2024 5:25 AM EDT Patient denies hx of chemo and radiation. Patient denies metal or foreign objects in body. Patient reports hx of seizure in May 2024 and a mini stroke in 1994. documented in this encounter[facility] Nurse Surgical operation note* Sandrita Waters RN - 09/15/2024 5:25 AM EDT Patient denies hx of chemo and radiation. Patient denies metal or foreign objects in body. Patient reports hx of seizure in May 2024 and a mini stroke in 1994. [facility]03-[facility] History and physical note* Roe Dutta, DICE DEALER-NATURAL RESOURCES EXTENSION EDUCATOR - 08/25/2024 11:30 AM EDT Images from the original note were not included. PREOPERATIVE ASSESSMENT [facility] Name: Stephane Caballero Date of Surgery: 09/15/2024 Surgeon: Velma Julien Pre-Op Diagnosis: Trigeminal neuralgia Planned Procedure: CRANIECTOMY SUBOCCIPITAL W/ DECOMPRESSION OR SECTION CRANIAL NERVE - Left Anesthesia Type: planned for general anesthesia SUMMARY AND RECOMMENDATIONS Reviewed with Dr. Smith Pending labs {Strict NPO Diet recommended secondary to ASA 3 or more Stephane Caballero is a 59 y.o. year old patient with a history the following diagnoses which increase her risk for perioperative complications. she being referred for pre operative evaluation and optimization. The relative status of the medical conditions are further explained in this note. 1. Preop exam for internal medicine 2. Trigeminal neuralgia 3. Liver cirrhosis secondary to nonalcoholic steatohepatitis (JEWELL) 4. Seizure disorder 5. Type 2 diabetes mellitus without complication, with long-term current use of insulin 6. S/P liver transplant 7. Type 2 diabetes mellitus treated without insulin 8. Remote history of TIA ANESTHESIA and AIRWAY Anesthesia alerts: hx of seizures- not on medication, s/p liver transplant. Personal history of problems related to anesthesia (ex.Malignant Hyperthermia): no Family History of problems related to anesthesia (ex.Malignant Hyperthermia: no Pacer/AICD: no Nerve stimulators (DBS, PNS, SCS): no Parenteral Access: no Glaucoma: no SHIVAM: no STOP-BANG Risk Assessment Do you snore - Yes Are you frequently tired during the day? - No Have you been observed gasping or choking while asleep? - No Do you have high blood pressure? - No Age more than 50? - YES Gender male? - No Neck circumference greater than 40 cm? - No Neck Circumference (cm): 37 BMI more then 35? - No Body mass index is 25.75 kg/m . Mallampati class - 2 TM Distance - 3 FB Oral Opening - 3 FB Teeth - normal dentition for age, patrial missing front bottom Cervical range of motion - within normal limits Neck circumference - Neck Circumference (cm): 37 Body mass index is 25.75 kg/m . Allergies and adverse drug reactions Allergies Allergen Reactions Sulfamethoxazole-Trimethoprim Fever Fever and elevated LFTs (presumed). If needs Bactrim in future, challenging again is reasonable. Topiramate Hallucination Lorazepam Anxiety and Confusion Other Reaction(s): Other (See Comments) Agitation Promethazine Confusion Other Reaction(s): Other (See Comments) Agitation Anesthesia record: Denies any difficulty with previous anesthesia. ANESTHESIA/AIRWAY ASSESSMENT AND PLAN- # Anesthesia Alerts as above if applicable # Patient is at Low (0-2) risk for SHIVAM # Previous Airway Details below (if available) CARDIOVASCULAR Do you take Aspirin or other antiplatelet agents? no Do you take anti-coagulations? no Beta Saqib: No Patient denies a history of cardiac events or TX. Denies chest pain with ambulation or ADLs around the house. Denies palpitations, denies LE edema, denies orthopnea today. Functional status - : METS: Moderate: 4-7 METS functional status. Can do laundry and dishes withoutshortness of breath. Has chronic pain left side of her face 2/2 trigeminal neuralgia. Patient has dx of asthma. Patient states that she has not used her inhalers because the medication and inhaling cause her trigeminal neuralgia. ASSESSMENT AND PLAN: 1. Hypotension. Has low blood pressure at time. BP flowsheets reviewed and noted. BP Readings from Last 3 Encounters: 08/25/24 106/68 08/09/24 133/83 2. Hx TIA. Provoked by control medication. No subsequent strokes. Never placed on medication. # Pre-operative Risk Evaluation: Patient Meets the Following RCRI Criteria (RCRI): *History of cerebrovascular disease: 1 criteria suggesting a 6.0% risk of major cardiac events or within 30 days. Stephaneclarissa Caballero is at a Elevated risk based on the RCRI above. Patient can achieve METS > 4. Per ACC/AHA guidelines, the patient requires no further testing at this time. The patient is at elevated risk for the following perioperative complications not captured by the RCRI: N/A CARDIAC TESTING and REVIEW OF PREVIOUS CARDIAC TESTING/IMAGING EKG due to HTN & upcoming surgical procedure EKG 08/25/[address] Smith does not feel that EKG shows inferior or anterior infarct, more likely left bundle. Patient meat 4 METS. Has SOB due to non-adherent with asthma medications. EKG 05/20/2024 Normal sinus with inferior infarct. ECHO 03/19/2022 Stress test 07/30/2019 07/30/2019 PULMONARY - Patient denies any current respiratory conditions or cold/flu symptoms, cough, or fever. Denies orthopnea. 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 She feels like she had just run a mile. When she stands up she feels light headed and dizziness. ASSESSMENT AND PLAN: Asthma: Chronic/Exacerbated -chronic, poorly-controlled; -Managed on Albuterol - LILLIANA & Breo. Has not used Breo in at least 3+ months. Used albuterol a few days ago which helped her shortness of breath. Patient states that the inhalers cause her trigeminal nerve pain to worsen. Patient did not realize that her breathing issues were due to not using her inhalers. Advised patient to return to using her maintenance inhaler and albuterol as needed. Patient voiced understanding. -Denies ER/urgent care and/or hospitalization related to breathing in the last 3 months - home oxygen use: no -Denies any ill symptoms today on exam. -Denies history prolonged ventilation/extubation. Lungs CTA. Recommendations to minimize the risk of pulmonary complications: - Aggressive pulmonary toilet (incentive spirometry, flutter valve, deep coughing), judicious use of analgesia, early ambulation when feasible from a postoperative perspective, pharmacologic DVT prophylaxis if possible, and continuation of any home inhalers with scheduled bronchodilators verenice-operat ively. PULMONARY TESTING AND REVIEW OF RECORDS if any SOCIAL/SUBSTANCE USE HISTORY Social History Tobacco Use Smoking Status Never Smokeless Tobacco Never Social History Substance and Sexual Activity Alcohol Use Not Currently Social History Substance and Sexual Activity Drug Use Yes Types: Marijuana Comment: eleni ASSESSMENT AND PLAN: - Advised patient to hold marijuana use 72 hours prior to surgical procedure. Surgery could get cancelled at the surgeon's discretion if instructions are not followed. HEMATOLOGY History of DVT/PE - yes - 1993 Treated with blood thinner. Provoked from . Non subsequent. Are you a Jehovah Witness? - No Have you ever been diagnosed with any bleeding disorders in the past (Hemophilia A or B, Von Willebrand Disease)? - No In case of surgeons plan or unforseen emergency, are you okay with receiving blood products? - Yes Patient has not received blood transfusions in the past 90 days ASSESSMENT AND PLAN # None Recommend standard VTE prophylaxis inpatient DIABETES and ENDOCRINOLOGY ASSESSMENT AND PLAN 1.. DM2. Chronic/Stable. Managed on Metformin. Does not check blood sugars. Advised patient to hold Metformin morning of surgery. Current A1C 6.7 No results found for: "HGBA1C" ADDITIONAL DIAGNOSES OF CONCERN - Patient denies any current abnormal urinary symptoms. ASSESSMENT AND PLAN: GERD: Chronic/Stable. Managed on Pantoprazole. Reports is able to lie flat without regurgitation symptoms. Advised the continuation of PPI to reduce risk of aspiration related complications. Estimated Creatinine Clearance: 71 mL/min (by C-G formula based on SCr of 0.83 mg/dL). Lab Results Component Value Date SODIUM 139 08/25/2024 POTASSIUM 4.1 08/25/2024 CHLORIDE 106 08/25/2024 CO2 29 08/25/2024 BUN 8 08/25/2024 CREATSERUM 0.83 08/25/2024 Lab Results Component Value Date CREATSERUM 0.83 08/25/2024 2. Trigeminal neuralgia. Chronic/pending upcoming surgical procedure. 3. Hx of seizures. Chronic/stable. 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 Followed by Neurology at Dr. Bunch in [place], [place] Last seizure last year, May 2024 due to not eating several days. Trigger not eating for several days, sleep deprivation No longer taking medication. She stopped on her own. Physician is aware per patient is is ok with her not restarting. 4. Hx of Liver transplant. Chronic/stable. (2019 for cirrhosis/JEWELL; on immunosuppressive therapy) Followed by [facility]. Hx of Liver cirrhosis 2/2 JEWELL Managed on tacrolimus, Entecavir, Mycophenolate 5. Hx of migraines. Chronic/stable. 4-5 per month. ADVANCED CARE PLANNING (for elderly and frail patients) # Code Status: Not on file MEDICATIONS Current Outpatient Medications Medication Sig Citalopram 40 MG tablet Take 1 tablet by mouth daily every morning. Entecavir 0.5 MG tablet Take 1 tablet by mouth daily every morning. medicinal cannabis (MEDICINAL MARIJUANA) by Unknown route at bedtime. THC GUMMIES======= metFORMIN 500 MG tablet Take 1 tablet by mouth daily every morning. Mirabegron ER 50 MG tablet Take 1 tablet by mouth every evening. Mycophenolate mofetil (CELLCEPT) 500 MG tablet Take 1 tablet by mouth 2 times daily. naratriptan 2.5 MG tablet Take 1 tablet by mouth as needed. max 5mg/day; may repeat in 4 hr x1 Pantoprazole (Protonix) [address] tablet DR Take 1 tablet by mouth daily every morning. Tacrolimus (PROGRAF) 1 MG capsule Take 2 capsules by mouth 2 times daily. zolpidem (Ambien) 10 MG tablet Take 1 tablet by mouth at bedtime as needed for Sleep. Albuterol 108 (90 Base) MCG/ACT Aero Soln inhaler Inhale 1 puff every 4 hours as needed for Shortness of Breath. Fluticasone Furoate-Vilanterol (Breo Ellipta) 100-25 MCG/ACT Aerosol Powder, breath activated Inhale 1 puff daily. Medication A/P - Instructions for preoperative medications given to the patient in AVS. LABS Orders Placed This Encounter SCREEN: MRSA/MSSA XR CHEST PA AND LATERAL 2 VIEWS CBC, EDIF, PLATELET CHEM 6 (LYTES, BUN CREA) PROTIME-INR PTT WITH MIXING STUDY HEMOGLOBIN A1C PTT W/MIXING STUDY PERF ONLY EXTRA LIGHT BLUE TOP DOUBLE SPIN CBC AND ELECTRONIC DIFF PREPARE TO TRANSFUSE OR RED BLOOD CELLS: 2 Units Type and Cross -Preadmission URINALYSIS REFLEX TO CULTURE URINALYSIS REFLEX TO CULTURE PERFORMABLE EXTRA MICRO AZ ECG, CLINIC PERFORMED Lab A/P - Personally reviewed. Lab Results Component Value Date SODIUM 139 08/25/2024 POTASSIUM 4.1 08/25/2024 CHLORIDE 106 08/25/2024 CO2 29 08/25/2024 BUN 8 08/25/2024 CREATSERUM 0.83 08/25/2024 CBC Lab Results Component Value Date WBC 5.15 08/25/2024 HGB 11.6 08/25/2024 HCT 34.0 (L) 08/25/2024 PLATELET 78 (L) 08/25/2024 MCV 85.6 08/25/2024 EDIF Lab Results Component Value Date RBCDISTRIBU 13.2 08/25/2024 GRNLOCYT 65.0 08/25/2024 LYMPHOCYT 25.4 08/25/2024 MONOCYTELEC 7.8 08/25/2024 EOSINOPHILS 1.0 08/25/2024 BASOPHILS 0.4 08/25/2024 LYMPHOCYTABS 1.31 08/25/2024 EOSINOPHLABS 0.05 08/25/2024 PLATELET 78 (L) 08/25/2024 MPV 08/25/2024 Comment: Not measured No results found for: "INR", "PT" No results found for: "PTT" MSSA/MRSA 08/25/2024: Personally reviewed. UA 08/25/2024: Personally reviewed. Chest xray: Personally reviewed. Thank you for allowing us to participate in the care of Stephane Caballero. Total time spent on the day of patient's visit was 78 minutes. This includes but is not limited to time spent preparing to see the patient, precharting, reviewing outside medical records, time spent in the patient's room doing a history and physical exam along with medication education, ordering lab test and requesting medical information as well as interpreting lab results and testing completed at [facility] and outside facilities through Care Everywhere. All the labs reviewed have been summarized and included in my history above. Note to patient: The Century Cures Act makes medical notes like these available to patients inthe interest of transparency. However, be advised this is a medical document. It is intended as tkve-cn-dzju communication. It is written in medical language and may contain abbreviations or verbiagethat are unfamiliar. It may appear blunt or direct. Medical documents are intended to carry relevant information, facts as evident, and the clinical opinion of the practitioner. [employer] dictation software may have been used to write this note. Please excuse any errors that may have occurred as a result of the dictation. Roe Dutta, DICE DEALER-NATURAL RESOURCES EXTENSION EDUCATOR Nurse Practitioner [facility] [address] Review of Systems (OSUROS) Review of Systems Constitutional: Negative for fever. Respiratory: Positive for shortness of breath. Negative for chest tightness. Cardiovascular: Negative for chest pain, palpitations and leg swelling. Gastrointestinal: Negative for blood in stool. Genitourinary: Negative for dysuria. Neurological: Left sided trigeminal nerve pain Psychiatric/Behavioral: Negative for confusion. All other pertinent positives are also in the note above. Physical Examination (PHYSEXAM) Blood pressure 106/68, pulse 88, temperature 98.4 F (36.9 C), resp. rate 18, height 1.626 m (5' 4"), weight 68 kg (150 lb), SpO2 99%. Physical Exam Vitals reviewed. HENT: Head: Normocephalic. Mouth/Throat: Mouth: Mucous membranes are moist. Cardiovascular: Rate and Rhythm: Normal rate and regular rhythm. Heart sounds: No murmur heard. Pulmonary: Effort: Pulmonary effort is normal. No respiratory distress. Breath sounds: Normal breath sounds. Abdominal: General: Abdomen is flat. Bowel sounds are normal. There is no distension. Musculoskeletal: General: No swelling. Normal range of motion. Cervical back: Normal range of motion. Skin: General: Skin is warm. Neurological: General: No focal deficit present. Mental Status: She is alert. Mental status is at baseline. Psychiatric: Mood and Affect: Mood normal. No past medical history on file. No past surgical history on file. Patient Care Team: Geeta Odell MD as PCP - General (Family Medicine) No family history on file. Social History Socioeconomic History Marital status: Tobacco Use Smoking status: Never Smokeless tobacco: Never Vaping Use Vaping status: Never Used Substance and Sexual Activity Alcohol use: Not Currently Drug use: Yes Types: Marijuana Comment: eleni [facility]03-12-2025 History and physical note* MARTITA Jaime - 08/25/2024 11:30 AM EDT Images from the original note were not included. PREOPERATIVE ASSESSMENT [facility] Susanne Stevens Name: Stephane Caballero Date of Surgery: 09/15/2024 Surgeon: Velma Julien Pre-Op Diagnosis: Trigeminal neuralgia Planned Procedure: CRANIECTOMY SUBOCCIPITAL W/ DECOMPRESSION OR SECTION CRANIAL NERVE - Left Anesthesia Type: planned for general anesthesia SUMMARY AND RECOMMENDATIONS Reviewed with Dr. Smith Pending labs {Strict NPO Diet recommended secondary to ASA 3 or more Stephane Caballero is a 59 y.o. year old patient with a history the following diagnoses which increase her risk for perioperative complications. she being referred for pre operative evaluation and optimization. The relative status of the medical conditions are further explained in this note. 1. Preop exam for internal medicine 2. Trigeminal neuralgia 3. Liver cirrhosis secondary to nonalcoholic steatohepatitis (JEWELL) 4. Seizure disorder 5. Type 2 diabetes mellitus without complication, with long-term current use of insulin 6. S/P liver transplant 7. Type 2 diabetes mellitus treated without insulin 8. Remote history of TIA ANESTHESIA and AIRWAY Anesthesia alerts: hx of seizures- not on medication, s/p liver transplant. Personal history of problems related to anesthesia (ex.Malignant Hyperthermia): no Family History of problems related to anesthesia (ex.Malignant Hyperthermia: no Pacer/AICD: no Nerve stimulators (DBS, PNS, SCS): no Parenteral Access: no Glaucoma: no SHIVAM: no STOP-BANG Risk Assessment Do you snore - Yes Are you frequently tired during the day? - No Have you been observed gasping or choking while asleep? - No Do you have high blood pressure? - No Age more than 50? - YES Gender male? - No Neck circumference greater than 40 cm? - No Neck Circumference (cm): 37 BMI more then 35? - No Body mass index is 25.75 kg/m . Mallampati class - 2 TM Distance - 3 FB Oral Opening - 3 FB Teeth - normal dentition for age, patrial missing front bottom Cervical range of motion - within normal limits Neck circumference - Neck Circumference (cm): 37 Body mass index is 25.75 kg/m . Allergies and adverse drug reactions Allergies Allergen Reactions Sulfamethoxazole-Trimethoprim Fever Fever and elevated LFTs (presumed). If needs Bactrim in future, challenging again is reasonable. Topiramate Hallucination Lorazepam Anxiety and Confusion Other Reaction(s): Other (See Comments) Agitation Promethazine Confusion Other Reaction(s): Other (See Comments) Agitation Anesthesia record: Denies any difficulty with previous anesthesia. ANESTHESIA/AIRWAY ASSESSMENT AND PLAN- # Anesthesia Alerts as above if applicable # Patient is at Low (0-2) risk for SHIVAM # Previous Airway Details below (if available) CARDIOVASCULAR Do you take Aspirin or other antiplatelet agents? no Do you take anti-coagulations? no Beta Saqib: No Patient denies a history of cardiac events or TX. Denies chest pain with ambulation or ADLs around the house. Denies palpitations, denies LE edema, denies orthopnea today. Functional status - : METS: Moderate: 4-7 METS functional status. Can do laundry and dishes withoutshortness of breath. Has chronic pain left side of her face 2/2 trigeminal neuralgia. Patient has dx of asthma. Patient states that she has not used her inhalers because the medication and inhaling cause her trigeminal neuralgia. ASSESSMENT AND PLAN: 1. Hypotension. Has low blood pressure at time. BP flowsheets reviewed and noted. BP Readings from Last 3 Encounters: 08/25/24 106/68 08/09/24 133/83 2. Hx TIA. Provoked by control medication. No subsequent strokes. Never placed on medication. # Pre-operative Risk Evaluation: Patient Meets the Following RCRI Criteria (RCRI): *History of cerebrovascular disease: 1 criteria suggesting a 6.0% risk of major cardiac events or within 30 days. Stephane Caballero is at a Elevated risk based on the RCRI above. Patient can achieve METS > 4. Per ACC/AHA guidelines, the patient requires no further testing at this time. The patient is at elevated risk for the following perioperative complications not captured by the RCRI: N/A CARDIAC TESTING and REVIEW OF PREVIOUS CARDIAC TESTING/IMAGING EKG due to HTN & upcoming surgical procedure EKG 08/25/[address] Smith does not feel that EKG shows inferior or anterior infarct, more likely left bundle. Patient meat 4 METS. Has SOB due to non-adherent with asthma medications. EKG 05/20/2024 Normal sinus with inferior infarct. ECHO 03/19/2022 Stress test 07/30/2019 07/30/2019 PULMONARY - Patient denies any current respiratory conditions or cold/flu symptoms, cough, or fever. Denies orthopnea. 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 She feels like she had just run a mile. When she stands up she feels light headed and dizziness. ASSESSMENT AND PLAN: Asthma: Chronic/Exacerbated -chronic, poorly-controlled; -Managed on Albuterol - LILLIANA & Breo. Has not used Breo in at least 3+ months. Used albuterol a few days ago which helped her shortness of breath. Patient states that the inhalers cause her trigeminal nerve pain to worsen. Patient did not realize that her breathing issues were due to not using her inhalers. Advised patient to return to using her maintenance inhaler and albuterol as needed. Patient voiced understanding. -Denies ER/urgent care and/or hospitalization related to breathing in the last 3 months - home oxygen use: no -Denies any ill symptoms today on exam. -Denies history prolonged ventilation/extubation. Lungs CTA. Recommendations to minimize the risk of pulmonary complications: - Aggressive pulmonary toilet (incentive spirometry, flutter valve, deep coughing), judicious use of analgesia, early ambulation when feasible from a postoperative perspective, pharmacologic DVT prophylaxis if possible, and continuation of any home inhalers with scheduled bronchodilators verenice-operat ively. PULMONARY TESTING AND REVIEW OF RECORDS if any SOCIAL/SUBSTANCE USE HISTORY Social History Tobacco Use Smoking Status Never Smokeless Tobacco Never Social History Substance and Sexual Activity Alcohol Use Not Currently Social History Substance and Sexual Activity Drug Use Yes Types: Marijuana Comment: eleni ASSESSMENT AND PLAN: - Advised patient to hold marijuana use 72 hours prior to surgical procedure. Surgery could get cancelled at the surgeon's discretion if instructions are not followed. HEMATOLOGY History of DVT/PE - yes - 1994 Treated with blood thinner. Provoked from . Non subsequent. Are you a Jehovah Witness? - No Have you ever been diagnosed with any bleeding disorders in the past (Hemophilia A or B, Von Willebrand Disease)? - No In case of surgeons plan or unforseen emergency, are you okay with receiving blood products? - Yes Patient has not received blood transfusions in the past 90 days ASSESSMENT AND PLAN # None Recommend standard VTE prophylaxis inpatient DIABETES and ENDOCRINOLOGY ASSESSMENT AND PLAN 1.. DM2. Chronic/Stable. Managed on Metformin. Does not check blood sugars. Advised patient to hold Metformin morning of surgery. Current A1C 6.7 No results found for: "HGBA1C" ADDITIONAL DIAGNOSES OF CONCERN - Patient denies any current abnormal urinary symptoms. ASSESSMENT AND PLAN: GERD: Chronic/Stable. Managed on Pantoprazole. Reports is able to lie flat without regurgitation symptoms. Advised the continuation of PPI to reduce risk of aspiration related complications. Estimated Creatinine Clearance: 71 mL/min (by C-G formula based on SCr of 0.83 mg/dL). Lab Results Component Value Date SODIUM 139 08/25/2024 POTASSIUM 4.1 08/25/2024 CHLORIDE 106 08/25/2024 CO2 29 08/25/2024 BUN 8 08/25/2024 CREATSERUM 0.83 08/25/2024 Lab Results Component Value Date CREATSERUM 0.83 08/25/2024 2. Trigeminal neuralgia. Chronic/pending upcoming surgical procedure. 3. Hx of seizures. Chronic/stable. 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 Followed by Neurology at Dr. Bunch in [place], [place] Last seizure last year, May 2024 due to not eating several days. Trigger not eating for several days, sleep deprivation No longer taking medication. She stopped on her own. Physician is aware per patient is is ok with her not restarting. 4. Hx of Liver transplant. Chronic/stable. (2019 for cirrhosis/JEWELL; on immunosuppressive therapy) Followed by [facility]. Hx of Liver cirrhosis 2/2 JEWELL Managed on tacrolimus, Entecavir, Mycophenolate 5. Hx of migraines. Chronic/stable. 4-5 per month. ADVANCED CARE PLANNING (for elderly and frail patients) # Code Status: Not on file MEDICATIONS Current Outpatient Medications Medication Sig Citalopram 40 MG tablet Take 1 tablet by mouth daily every morning. Entecavir 0.5 MG tablet Take 1 tablet by mouth daily every morning. medicinal cannabis (MEDICINAL MARIJUANA) by Unknown route at bedtime. THC GUMMIES======= metFORMIN 500 MG tablet Take 1 tablet by mouth daily every morning. Mirabegron ER 50 MG tablet Take 1 tablet by mouth every evening. Mycophenolate mofetil (CELLCEPT) 500 MG tablet Take 1 tablet by mouth 2 times daily. naratriptan 2.5 MG tablet Take 1 tablet by mouth as needed. max 5mg/day; may repeat in 4 hr x1 Pantoprazole (Protonix) [address] tablet DR Take 1 tablet by mouth daily every morning. Tacrolimus (PROGRAF) 1 MG capsule Take 2 capsules by mouth 2 times daily. zolpidem (Ambien) 10 MG tablet Take 1 tablet by mouth at bedtime as needed for Sleep. Albuterol 108 (90 Base) MCG/ACT Aero Soln inhaler Inhale 1 puff every 4 hours as needed for Shortness of Breath. Fluticasone Furoate-Vilanterol (Breo Ellipta) 100-25 MCG/ACT Aerosol Powder, breath activated Inhale 1 puff daily. Medication A/P - Instructions for preoperative medications given to the patient in AVS. LABS Orders Placed This Encounter SCREEN: MRSA/MSSA XR CHEST PA AND LATERAL 2 VIEWS CBC, EDIF, PLATELET CHEM 6 (LYTES, BUN CREA) PROTIME-INR PTT WITH MIXING STUDY HEMOGLOBIN A1C PTT W/MIXING STUDY PERF ONLY EXTRA LIGHT BLUE TOP DOUBLE SPIN CBC AND ELECTRONIC DIFF PREPARE TO TRANSFUSE OR RED BLOOD CELLS: 2 Units Type and Cross -Preadmission URINALYSIS REFLEX TO CULTURE URINALYSIS REFLEX TO CULTURE PERFORMABLE EXTRA MICRO [place] ECG, CLINIC PERFORMED Lab A/P - Personally reviewed. Lab Results Component Value Date SODIUM 139 08/25/2024 POTASSIUM 4.1 08/25/2024 CHLORIDE 106 08/25/2024 CO2 29 08/25/2024 BUN 8 08/25/2024 CREATSERUM 0.83 08/25/2024 CBC Lab Results Component Value Date WBC 5.15 08/25/2024 HGB 11.6 08/25/2024 HCT 34.0 (L) 08/25/2024 PLATELET 78 (L) 08/25/2024 MCV 85.6 08/25/2024 EDIF Lab Results Component Value Date RBCDISTRIBU 13.2 08/25/2024 GRNLOCYT 65.0 08/25/2024 LYMPHOCYT 25.4 08/25/2024 MONOCYTELEC 7.8 08/25/2024 EOSINOPHILS 1.0 08/25/2024 BASOPHILS 0.4 08/25/2024 LYMPHOCYTABS 1.31 08/25/2024 EOSINOPHLABS 0.05 08/25/2024 PLATELET 78 (L) 08/25/2024 MPV 08/25/2024 Comment: Not measured No results found for: "INR", "PT" No results found for: "PTT" MSSA/MRSA 08/25/2024: Personally reviewed. UA 08/25/2024: Personally reviewed. Chest xray: Personally reviewed. Thank you for allowing us to participate in the care of Stephane Caballero. Total time spent on the day of patient's visit was 78 minutes. This includes but is not limited to time spent preparing to see the patient, precharting, reviewing outside medical records, time spent in the patient's room doing a history and physical exam along with medication education, ordering lab test and requesting medical information as well as interpreting lab results and testing completed at [facility] and outside facilities through Care Everywhere. All the labs reviewed have been summarized and included in my history above. Note to patient: The Cures Act makes medical notes like these available to patients inthe interest of transparency. However, be advised this is a medical document. It is intended as prmm-ne-ifni communication. It is written in medical language and may contain abbreviations or verbiagethat are unfamiliar. It may appear blunt or direct. Medical documents are intended to carry relevant information, facts as evident, and the clinical opinion of the practitioner. [employer] dictation software may have been used to write this note. Please excuse any errors that may have occurred as a result of the dictation. Roe Dutta, DICE DEALER-NATURAL RESOURCES EXTENSION EDUCATOR Nurse Practitioner [facility] [place] [id number] [facility] Review of Systems (OSUROS) Review of Systems Constitutional: Negative for fever. Respiratory: Positive for shortness of breath. Negative for chest tightness. Cardiovascular: Negative for chest pain, palpitations and leg swelling. Gastrointestinal: Negative for blood in stool. Genitourinary: Negative for dysuria. Neurological: Left sided trigeminal nerve pain Psychiatric/Behavioral: Negative for confusion. All other pertinent positives are also in the note above. Physical Examination (PHYSEXAM) Blood pressure 106/68, pulse 88, temperature 98.4 F (36.9 C), resp. rate 18, height 1.626 m (5' 4"), weight 68 kg (150 lb), SpO2 99%. Physical Exam Vitals reviewed. HENT: Head: Normocephalic. Mouth/Throat: Mouth: Mucous membranes are moist. Cardiovascular: Rate and Rhythm: Normal rate and regular rhythm. Heart sounds: No murmur heard. Pulmonary: Effort: Pulmonary effort is normal. No respiratory distress. Breath sounds: Normal breath sounds. Abdominal: General: Abdomen is flat. Bowel sounds are normal. There is no distension. Musculoskeletal: General: No swelling. Normal range of motion. Cervical back: Normal range of motion. Skin: General: Skin is warm. Neurological: General: No focal deficit present. Mental Status: She is alert. Mental status is at baseline. Psychiatric: Mood and Affect: Mood normal. No past medical history on file. No past surgical history on file. Patient Care Team: Geeta Odell MD as PCP - General (Family Medicine) No family history on file. Social History Socioeconomic History Marital status: Tobacco Use Smoking status: Never Smokeless tobacco: Never Vaping Use Vaping status: Never Used Substance and Sexual Activity Alcohol use: Not Currently Drug use: Yes Types: Marijuana Comment: gummies [facility] Instructions* Patient Instructions* Howie Franco LPN - 08/25/2024 11:30 AM EDT PRIOR TO SURGERY INSTRUCTIONS Please follow these instructions prior to surgery to help us minimize delays and complications to your surgery THE FOLLOWING MEDICATIONS LABS, STUDIES, AND CONSULTATIONS WERE ORDERED TODAY: Orders Placed This Encounter SCREEN: MRSA/MSSA XR CHEST PA AND LATERAL 2 VIEWS CBC, EDIF, PLATELET CHEM 6 (LYTES, BUN CREA) PROTIME-INR PTT WITH MIXING STUDY PREPARE TO TRANSFUSE OR RED BLOOD CELLS: 2 Units Type and Cross -Preadmission URINALYSIS REFLEX TO CULTURE AZ ECG, CLINIC PERFORMED PREOPERATIVE MEDICATION INSTRUCTIONS Below are instructions for what to do with your medicines before your surgery/procedure. Take the medications marked take the morning of surgery/procedure with a sip of water. Please follow this table below for instructions on which medications to hold prior to surgery If you have a change in daily medications prior to surgery/procedure, call the [facility] Clinic at [phone]. Current Outpatient Medications Medication Sig medicinal cannabis (MEDICINAL MARIJUANA) by Unknown route at bedtime. THC GUMMIES======= DO NOT take for the 5 days prior to surgery zolpidem (Ambien) 10 MG tablet Take 1 tablet by mouth at bedtime as needed for Sleep. Take at bedtime the night before surgery Citalopram 40 MG tablet Take 1 tablet by mouth daily every morning. Take morning of surgery Entecavir 0.5 MG tablet Take 1 tablet by mouth daily every morning. Take morning of surgery metFORMIN 500 MG tablet Take 1 tablet by mouth daily every morning. DO NOT take the morning of surgery Mirabegron ER 50 MG tablet Take 1 tablet by mouth every evening. Take in the evening the night before surgery Mycophenolate mofetil (CELLCEPT) 500 MG tablet Take 1 tablet by mouth 2 times daily. Take morning of surgery naratriptan 2.5 MG tablet Take 1 tablet by mouth as needed. max 5mg/day; may repeat in 4 hr x1 DO NOT take the morning of surgery Pantoprazole (Protonix) [address] tablet DR Take 1 tablet by mouth daily every morning. Take morning of surgery Tacrolimus (PROGRAF) 1 MG capsule Take 2 capsules by mouth 2 times daily. Take morning of surgery Breo Inhale 2 puffs morning and the evening Take morning of surgery Albuterol inhaler 1-2 puffs as needed Take morning of surgery if needed DO NOT take Excedrin, ibuprofen, Advil, Voltaren (Diclofenac), Motrin, naproxen, or Aleve, Mobic (Meloxicam) for the 7 days before surgery unless your surgeon has instructed you otherwise. Acetaminophen (Tylenol) is ok to take up until the day of surgery for pain control OTHER MEDICATIONS: If you are on or have recently been started on any injectable medications for diabetes or weight loss (see list below), please call our office at [phone] for instructions on what to do with those medications. Your surgery is likely to get rescheduled or delayed if this medication is taken within a week of your surgery. exenatide (brand names Byetta and Bydureon) liraglutide (Victoza for diabetes, Saxenda for obesity) albiglutide (Tanzeum) dulaglutide (Trulicity) lixisenatide (Adlyxin) semaglutide (Ozempic and Rybelsus for diabetes, Wegovy for obesity) tirzepatide (dual GLP-1 and GIP agonist; Mounjaro for diabetes, Zepbound for obesity) VITAMINS & HERBALS Do NOT take herbal medications or vitamins such as, but not limited to, fish oil (Berkeley-3), garlic,glucosamine -chondroitin, gingko, ginseng, probiotics, or multivitamins) 2 weeks before surgery unless your surgeon instructed differently. If your Medical Doctor has prescribed vitamins or herbal supplements due to a medical condition such as malabsorption issues, only hold the day of surgery. DIET INSTRUCTIONS: NO food or drink after 11 pm the night before surgery except for enough water to take your medications. (No Candy, Mints and/or Gum). If your surgeon has given you special shakes to take prior to surgery, it is okay to take them and follow those instructions OTHER PREOPERATIVE INSTRUCTIONS: To lessen your chance of getting an infection after your surgery, you will need to wash your skin with a special soap called 4% Chlorhexidine Gluconate (CHG) before your surgery. Your nurse has givenyou CHG soap today and written instructions; "Getting Your Skin Ready for Surgery". Please review the instructions carefully prior to your surgery. Today we completed a nasal swab culture to check for a specific bacteria called MRSA or MSSA. This is a bacteria that can live in the nose and cause no symptoms or illness. If your culture is positive, we will contact you and send in a prescription for mupirocin to your pharmacy. You will be instructed to rub the ointment into each of your nostrils twice a day for 5 days prior to your surgery. Your nurse will also swab your nose with a betadine swab in the preoperative area on your day of surgery. Please notify the nurse if you have an iodine allergy. PREOPERATIVE INSTRUCTIONS: If additional testing has been ordered by [facility] outside of what can be done today after your visit, we will contact you with an appointment date, location and time for this testing. Please complete this testing as it would be vital to proceeding with your surgery. Any delays in testing could result in delays in your surgery. Please bring remote/s for any devices that you may have implanted like ICDs, pacemakers, nerve stimulators (deep brain, vagus, pudendal, hypoglossal, sacral or spinal) Do not wear any jewelry, watches, rings, hairpieces, makeup, dentures, glasses or contact lenses onday of surgery. Do not wear artificial nails or nail canadian the day of surgery. Do NOT bring your hearing aids or dentures or partials with you into surgery. They may get lost. Give them to someone to bring to you after surgery Shower the night before and the morning of surgery. If we have provided you with a special soap, follow those directions. AVOID using surgical soap around eyes, ears, nose, mouth, and genital areas Avoid any creams, ointments or deodorant on the morning of surgery Do not shave, or pluck hair from anywhere near the surgical area for 1 week prior to surgery. [place] your teeth and rinse your mouth the morning of surgery. Avoid Swallowing toothpaste. If you are a female, under the age of 60, you may be required to provide a urine specimen the morning of surgery. DO NOT DRINK ALCOHOL for at least 5 days prior to surgery. AVOID USING NICOTINE or TOBACCO of any form around the time of surgery. This includes but not limited to: Smoking, Cigarettes, Vaping, Chewing/Rubbing Tobacco and Nicorette Gum. If you smoke, we recommend that you quit smoking at least 2 weeks prior to surgery as nicotine products can impair wound healing. Your anesthesia team recommends that you have no nicotine in your system for at least 24 hours (at a minimum) prior to anesthesia. Your surgery could get cancelled at your surgeon's discretion if you do not follow these instructions AVOID MARIJUANA USE for at least 72 hours prior to surgery. Arriving to surgery intoxicated or under the influence of recreational drugs may result in cancellation of procedure. If you have a cold or flu symptoms, recently hospitalized or new diagnosis, please contact your surgeon s office before your procedure. If you become ill, develop a fever, cough, develop any type of infection, or are admitted to the hospital for any reason within 14 days of your scheduled surgery, please notify our team ([facility] clinic)and your surgeon's office. You may need to have your surgery moved, as we would not want to put youat risk for complications, You MUST arrange for a responsible adult to drive you to your procedure, stay for the surgery, listen to discharge instructions, and drive you home after surgery, otherwise your surgery may be cancelled. SURGERY LOCATIONS [facility] Main OR and [facility] Day [facility] [address] [place] [address] Parking: Z[employer] or [address] [employer] Phone-Main OR [phone]-Ask for the Surgery Department Please call for any questions, delay of arrival, cancellation, or illness on the day of surgery. [facility] [address] [facility] 1st Floor Surgery Center [place], [place] [address] Please call for any questions, delay of arrival, cancellation, or illness on the day of surgery. [facility] and [facility] [address] [place], [place] [address] Please call for any questions, delay of arrival, cancellation, or illness on the day of surgery. [facility] [address] [place] [id number] Please call for any questions, delay of arrival, cancellation, or illness on the day of surgery. PLEASE BRING YOUR MEDICATIONS WITH YOU IN THE ORIGINAL BOTTLES, ON THE DAY OF SURGERY. [facility] [address] [place] [address] Please call for any questions, delay of arrival, cancellation, or illness on the day of surgery. PLEASE BRING YOUR MEDICATIONS WITH YOU IN THE ORIGINAL BOTTLES, ON THE DAY OF SURGERY. [facility] [address] [place], [place] [address] Please call for any questions, delay of arrival, cancellation, or illness on the day of surgery. [facility] [address] [place], [place] [address] Please call for any questions, delay of arrival, cancellation, or illness on the day of surgery. [facility] Susanne Hobbs [phone] AVS/BRM documented in [facility] HospitalChief complaint+Reason for visit Narrative* Chief Complaint Pre-Surgical Testing PAT EORDER CHEUVRONT/AND MIEDEL ORDER 2 W FU PROCEDURE 2 M FU EPILEPSY Reason for Visit Cirrhosis Esophageal dysphagia History of pseudoseizure Epilepsy Migraine headache without aura Restless legs syndrome [facility] Work Phone: Evaluation + Plan note No data available for this section [facility] Evaluation note* Diagnosis Onset Date Resolution Status Cirrhosis acute Esophageal dysphagia acute History of pseudoseizure acu te Epilepsy chronic Migraine headache without aura chronic Restless legs syndrome chron [facility] Work Phone: Evaluation note* Diagnosis Onset Date Resolution Status Epilepsy chronic History of pseudoseizure chr onic Migraine headache without aura chronic Restless legs syndrome chron ic Polyneuropathy acute Anxiety chronic Depression chronic Epilepsy chronic History of pseudoseizure chr onic Migraine headache without aura chronic Restless legs syndrome chron [facility] Work Phone: Evaluation note* Diagnosis Onset Date Resolution Status Polyneuropathy acute Anxiety chronic Depression chronic Epilepsy chronic History of pseudoseizure chr onic Migraine headache without aura chronic Restless legs syndrome chron ic [facility] Work Phone: Evaluation note* Diagnosis Onset Date Resolution Status Polyneuropathy acute Anxiety chronic Depression chronic Epilepsy chronic History of pseudoseizure chr onic Migraine headache without aura chronic Restless legs syndrome chron ic Cirrhosis acute Esophageal dysphagia acute Gastric ulcer acute [facility] Work Phone: Evaluation note* Diagnosis Onset Date Resolution Status Cirrhosis acute Esophageal dysphagia acute Gastric ulcer acute Bloating acute Cirrhosis acute Leg swelling acute Muscle cramps acute Epilepsy chronic Fatigue chronic History of pseudoseizure chr onic Migraine headache without aura chronic Restless legs syndrome chron [facility] Work Phone: Evaluation note* Diagnosis Onset Date Resolution Status Bloating acute Cirrhosis acute Leg swelling acute Epilepsy chronic Fatigue chronic History of pseudoseizure chr onic Migraine headache without aura chronic Muscle cramps chronic Restless legs syndrome chron ic Epilepsy chronic Fatigue chronic History of pseudoseizure chr onic Low back pain chronic Lumbar radiculopathy chronic Migraine headache without aura chronic Muscle cramps chronic Restless legs syndrome chron ic [facility] Work Phone: Evaluation note* Diagnosis Preop exam for internal medicine- Primary Other specified pre-operative examination Trigeminal neuralgia Liver cirrhosis secondary to nonalcoholic steatohepatitis (JEWELL) Seizure disorder Unspecified epilepsy without mention of intractable epilepsy Type 2 diabetes mellitus without complication, with long-term current use of insulin S/P liver transplant Liver replaced by transplant Type 2 diabetes mellitus treated without insulin Remote history of TIA Preop exam for internal medicine Other specified pre-operative examination Trigeminal neuralgia Liver cirrhosis secondary to nonalcoholic steatohepatitis (JEWELL) Seizure disorder Unspecified epilepsy without mention of intractable epilepsy Type 2 diabetes mellitus without complication, with long-term current use of insulin S/P liver transplant Liver replaced by transplant [place] (trigeminal neuralgia) Trigeminal neuralgia [facility] encounter [facility] Diagnosis Preop exam for internal medicine Other specified pre-operative examination Trigeminal neuralgia Liver cirrhosis secondary to nonalcoholic steatohepatitis (JEWELL) Seizure disorder Unspecified epilepsy without mention of intractable epilepsy Type 2 diabetes mellitus without complication, with long-term current use of insulin S/P liver transplant Liver replaced by transplant TN (trigeminal neuralgia) Trigeminal neuralgia [facility] encounter [facility] Diagnosis Trigeminal neuralgia- Primary Seizure disorder Unspecified epilepsy without mention of intractable epilepsy [facility] Diagnosis S/P craniotomy- Primary Other postprocedural status documented in this encounter [facility] for referral (narrative)* (Routine) Specialty Diagnoses / Procedures Referred By Kisha gilliland Referred To Contact DOMINIC [address] [place] [phone] Referral ID Status Reason Start Date Expiration Date Visits Re quested Visits Authorized * Radiology (Routine) - New Request Specialty Diagnoses / Procedures Referred By Kisha gilliland Referred To Contact Procedures US IMAGING DOMINIC OR Velma Julien MD [address] [place] [address] Phone: tel: fax: Referral ID Status Reason Start Date Expiration Date V isits Requested Visits Authorized [id number] New Request 09/15/2024 10/10/[address] [facility] N[facility]* Auth/Cert Specialty Diagnoses / Procedures Referred By Kisha t Referred To Contact Diagnoses TN (trigeminal neuralgia) TN (trigeminal neuralgia) [G50.0] Procedures [place] CRNEC SOPL EXPLORATION/DECOMPRESSION CRANIAL NRV CRANIECTOMY SUBOCCIPITAL W/ DECOMPRESSION OR SECTION CRANIAL NERVE Velma Julien MD [address] [place] [address] Phone: tel: fax: [facility] [address] [place] [address] Referral ID Status Reason Start Date Expiration Date Visits Re quested Visits Authorized [id number] [address] [facility] Summary Purpose Family History No Family History Records Found Relationship Condition Age at Onset Recorded Date/T gm mother Cardiac disease Unknown Chronic obstructive pulmonary disease Unk nown father Chronic alcoholism Unknown Advance Directives No Advanced Directives Records Found Advance Directive Response Recorded Date/ Time Name of Medical Power of Textile Machine Maintenance Mechanic SPOUSE/PREETE R June 19, 2021 2:42pm Advance Directives No July 7:13pm Living Will Yes August 23, 2021 10:43am Power of Textile Machine Maintenance Mechanic Yes August 23 10:43am Advance Directive Response Recorded Date/ Time Advance Directives No July 7:13pm Living Will Yes August 23, 2021 10:43am Power of Textile Machine Maintenance Mechanic Yes August 23 10:43am Advance Directive Response Recorded Date/ Time Advance Directives No July 7:13pm Living Will No November 21, 2021 3 :07am Power of Textile Machine Maintenance Mechanic No November 21, 2021 3:07am Advance Directive Response Recorded Date/ Time Advance Directives No July 7:13pm Living Will No November 23, 2021 10:40am Power of Textile Machine Maintenance Mechanic No November 23 10:40am Advance Directive Response Recorded Date/ Time Name of Medical Power of Textile Machine Maintenance Mechanic SPOUSE August 23, 2021 10:43am Advance Directives No July 7:13pm Living Will No Joanne 15th, 2022 11:20pm Power of Textile Machine Maintenance Mechanic No November 28 11:20pm Advance Directive Response Recorded Date/ Time Advance Directives No July 6:13pm Living Will No November 28, 2021 10:20pm Power of Textile Machine Maintenance Mechanic No November 28 10:20pm Documents on File Type Date Recorded Patient Er Rn Expl anation HealthCare Power of Textile Machine Maintenance Mechanic 09/16/2024 2:22 PM Healthcare Power of Textile Machine Maintenance Mechanic Date Activated Date Inactivated Comments 09/15/2024 5:24 AM 09/15/2024 1:50 PM Healthcare Agents on File Name Relationship Healthcare Agent Relationship Communication marichuy (HCPOA) young Child Health Care Agent Judith (HCPOA) [place] [employer] [facility] Health Care Agent Documents on File Type Date Recorded Patient Er Rn Expl anation HealthCare Power of Textile Machine Maintenance Mechanic 09/16/2024 2:22 PM Healthcare Power of Textile Machine Maintenance Mechanic Date Activated Date Inactivated Comments 09/15/2024 5:24 AM 09/15/2024 1:50 PM Healthcare Agents on File Name Relationship Healthcare Agent Relationship Communication marichuy (HCPOA) young Child Health Care Agent Judith (HCPOA) [place] [employer] [facility] Health Care Agent Hospital Course Note [facility] Patient Name: STEPHANE LOGAN [id number] [facility] Date of : [address] [address] Unit Number: [id number] Number: [id number] Summary Patient Status: ADM INAttending Doctor: Dominic Logan MDService Date: 05/03/18 1548Discharge SummaryAdmit DateAdmission Date Time: 05/02/18nticipated Discharge Date 05/03/18inal Dx/Problem List1. Hepatic encephalopathy2. Hyperammonemia3. Liver cirrhosis secondary to NASH4. ThrombocytopeniaChief Complaint/HPILethargyReason for AdmissionHepatic encephalopathyOperations/ProceduresNoneHospital CourseThis is a 53-year-old female with past medical history significant for stage IVliver cirrhosis diagnosed in January 2017 secondary to JEWELL [facility] history of migraine headaches,seizures with last seizure being 3 months ago and esophageal varices status post banding[facility] complaining of lethargy. She noted that (more content not included)... Chief Complaint and Reason for Visit Chief Complaint 2 M FU EPILEPSY 3 M FU Reason for Visit Epilepsy History of pseudoseizure Migraine headache without aura Restless legs syndrome Polyneuropathy Anxiety Depression Epilepsy History of pseudoseizure Migraine headache without aura Restless legs syndrome Chief Complaint 2 M FU EPILEPSY 3 M FU SCREENING Reason for Visit Epilepsy History of pseudoseizure Migraine headache without aura Restless legs syndrome Polyneuropathy Anxiety Depression Epilepsy History of pseudoseizure Migraine headache without aura Restless legs syndrome Chief Complaint 2 M FU EPILEPSY 3 M FU SCREENING ALTERED MENTAL STATUS Reason for Visit Epilepsy History of pseudoseizure Migraine headache without aura Restless legs syndrome Polyneuropathy Anxiety Depression Epilepsy History of pseudoseizure Migraine headache without aura Restless legs syndrome Chief Complaint EPILEPSY 3 M FU SCREENING ALTERED MENTAL STATUS Pre-Surgical Testing PAT Reason for Visit Polyneuropathy Anxiety Depression Epilepsy History of pseudoseizure Migraine headache without aura Restless legs syndrome Chief Complaint EPILEPSY 3 M FU SCREENING ALTERED MENTAL STATUS Pre-Surgical Testing PAT FALL Reason for Visit Polyneuropathy Anxiety Depression Epilepsy History of pseudoseizure Migraine headache without aura Restless legs syndrome Chief Complaint 3 M FU SCREENING ALTERED MENTAL STATUS Pre-Surgical Testing PAT FALL RIGHT SHOULDER RIGHT SHOULDER xray 2 WK FU RIGHT SHOULDER xray RIGHT SHOULDER XRAY RIGHT SHOULDER xray DYSPHAGIA RT SHOULDER PN/PT HAS RX Reason for Visit Polyneuropathy Anxiety Depression Epilepsy History of pseudoseizure Migraine headache without aura Restless legs syndrome Cirrhosis Esophageal dysphagia Gastric ulcer Chief Complaint SCREENING ALTERED MENTAL STATUS Pre-Surgical Testing PAT FALL RIGHT SHOULDER RIGHT SHOULDER xray 2 WK FU RIGHT SHOULDER xray RIGHT SHOULDER XRAY RIGHT SHOULDER xray DYSPHAGIA RT SHOULDER PN/PT HAS RX 3 MO FU 4 M FU E ORDER Reason for Visit Cirrhosis Esophageal dysphagia Gastric ulcer Bloating Cirrhosis Leg swelling Muscle cramps Epilepsy Fatigue History of pseudoseizure Migraine headache without aura Restless legs syndrome Chief Complaint ALTERED MENTAL STATU S Pre-Surgical Testing PAT FALL RIGHT SHOULDER RIGHT SHOULDER xray 2 WK FU RIGHT SHOULDER xray RIGHT SHOULDER XRAY RIGHT SHOULDER xray DYSPHAGIA RT SHOULDER PN/PT HAS RX 3 MO FU 4 M FU E ORDER ELEVATED LFTS Reason for Visit Cirrhosis Esophageal dysphagia Gastric ulcer Bloating Cirrhosis Leg swelling Muscle cramps Epilepsy Fatigue History of pseudoseizure Migraine headache without aura Restless legs syndrome Chief Complaint ALTERED MENTAL STATU S Pre-Surgical Testing PAT FALL RIGHT SHOULDER RIGHT SHOULDER xray 2 WK FU RIGHT SHOULDER xray RIGHT SHOULDER XRAY RIGHT SHOULDER xray DYSPHAGIA RT SHOULDER PN/PT HAS RX 3 MO FU 4 M FU E ORDER ELEVATED LFTS CHF Reason for Visit Cirrhosis Esophageal dysphagia Gastric ulcer Bloating Cirrhosis Leg swelling Muscle cramps Epilepsy Fatigue History of pseudoseizure Migraine headache without aura Restless legs syndrome Chief Complaint Pre-Surgical Testing PAT FALL RIGHT SHOULDER RIGHT SHOULDER xray 2 WK FU RIGHT SHOULDER xray RIGHT SHOULDER XRAY RIGHT SHOULDER xray DYSPHAGIA RT SHOULDER PN/PT HAS RX 3 MO FU 4 M FU E ORDER ELEVATED LFTS CHF Reason for Visit Cirrhosis Esophageal dysphagia Gastric ulcer Bloating Cirrhosis Leg swelling Muscle cramps Epilepsy Fatigue History of pseudoseizure Migraine headache without aura Restless legs syndrome Chief Complaint RIGHT SHOULDER xray DYSPHAGIA RT SHOULDER PN/PT HAS RX 3 MO FU 4 M FU E ORDER ELEVATED LFTS CHF 2 month f/u Reason for Visit Bloating Cirrhosis Leg swelling Epilepsy Fatigue History of pseudoseizure Migraine headache without aura Muscle cramps Restless legs syndrome Epilepsy Fatigue History of pseudoseizure Low back pain Lumbar radiculopathy Migraine headache without aura Muscle cramps Restless legs syndrome Chief Complaint 3 MO FU 4 M FU E ORDER ELEVATED LFTS CHF 2 month f/u LOW BACK PAIN Reason for Visit Bloating Cirrhosis Leg swelling Epilepsy Fatigue History of pseudoseizure Migraine headache without aura Muscle cramps Restless legs syndrome Epilepsy Fatigue History of pseudoseizure Low back pain Lumbar radiculopathy Migraine headache without aura Muscle cramps Restless legs syndrome Chief Complaint 3 MO FU 4 M FU E ORDER ELEVATED LFTS CHF 2 month f/u LOW BACK PAIN LOW BACK PAIN. RX HERE Reason for Visit Bloating Cirrhosis Leg swelling Epilepsy Fatigue History of pseudoseizure Migraine headache without aura Muscle cramps Restless legs syndrome Epilepsy Fatigue History of pseudoseizure Low back pain Lumbar radiculopathy Migraine headache without aura Muscle cramps Restless legs syndrome Additional Source Comments INFORMATION SOURCE (unrecogn ized section and content) DATE CREATED AUTHOR 12/10/2017 [employer] [facility] DATE CREATED AUTHOR AUTHOR'S ORGANIZ ATION 05/25/2018 [facility] tonio Arvizu DATE CREATED AUTHOR AUTHOR'S ORGANIZ ATION 09/23/2020 [facility] ([place]) DATE CREATED AUTHOR AUTHOR'S ORGANIZ ATION 10/15/2024 [facility] DATE CREATED AUTHOR AUTHOR'S ORGANIZ ATION 11/28/2024 [facility] DATE CREATED AUTHOR AUTHOR'S ORGANIZ ATION 01/02/2025 [facility] Goals (unrecognized section and content) Goals may be documented in a n alternate sectionGoals may be documented in an alternate sectionGoals may be documented in an alternate sectionGoals may be documented in an alternate sectionGoals may be documented in an alternate sectionGoals may be documented in an alternate sectionGoals may be documented in an alternate sectionGoals may be documented in an alternate sectionGoals may be documented in an alternate section No data available for this section Care Teams (unrecognized sec tion and content) Team Status: Active Member Role Status Dates Anna Meza PUBLIC RELATIONS SUPERVISOR, PUBLIC RELATIONS SUPERVISOR-C Family Provider Active Dr. Geeta Odell MD Primary Care Provider Active Team Status: Inactive Member Role Status Dates Dr. Geeta Odell MD Primary Care Provider Active Dr. Kedar Bunch MD Attending Provider, Referring Provider Active Team Status: Inactive Member Role Status Dates Dr. Geeta Odell MD Primary Care Provider, Referrin g Provider Active Dr. Raoul June DO Attending Provider Active Team Status: Active Member Role Status Dates Dr. Geeta Odell MD Primary Care Provider Active Dr. Lg Saba MD Attending Provider Active Team Status: Inactive Member Role Status Dates Dr. Geeta Odell MD Primary Care Provider, Attendin g Provider Active Team Status: Inactive Member Role Status Dates Dr. Geeta Odell MD Primary Care Provider Active Dr. Raoul June DO Attending Provider Active Team Status: Inactive Member Role Status Dates Dr. Geeta Odell MD Primary Care Provider Active Dr. Raoul June DO Attending Provider, Referring Provider Active Team Status: Inactive Member Role Status Dates Dr. Geeta Odell MD Primary Care Provider Active CHARLA WHITE Attending Provider, Referring Provider Active Team Status: Active Member Role Status Dates Dr. Geeta Odell MD Primary Care Provider Active Dr. Kedar Bunch MD Attending Provider, Referring Provider Active [employer] Machine Tender Relationship Specialty Start Date End Date Geeta Odell MD [address] [place] [address] PCP - General Family Medicine 08/09/24 [employer] Tender Relationship Specialty Start Date End Date Geeta Odell MD [address] [place] [address] PCP - General Family Medicine 08/09/24 [employer] Processing Machine Tender Relationship Specialty Start Date End Date Geeta Odell MD [address] [place] [place] [address] PCP - General Family Medicine 08/09/24 [employer] Processing Machine Tender Relationship Specialty Start Date End Date Geeta Odell MD PCP - General Family Medicine 08/09/24 Kedar Bunch MD Neurology 09/20/24 Reason for Visit (unrecogniz ed section and content) Reason Comments Pre-operative Consultation Specialty Diagnoses / Procedures Referred By Kisha gilliland Referred To Contact PreOp Diagnoses Trigeminal neuralgia Velma Julien MD [address] [place] [address] Phone: tel: fax: Referral ID Status Reason Start Date Expiration Date V isits Requested Visits Authorized [id number] New Request 08/09/2024 09/03/2025 1 1 Reason Comments Post Op Visit Specialty Diagnoses / Procedures Referred By Kisha gilliland Referred To Contact Certified Nurse Practitioner / Neurosurgery Neuro Oncology Diagnoses Lor Felix/2 Procedures POST-OP Geeta Odell MD Phone: tel: fax: Ranjan Holland, DICE DEALER-NATURAL RESOURCES EXTENSION EDUCATOR [address] [place] [address] Phone: tel: fax: Referral ID Status Reason Start Date Expiration Date Visits Re quested Visits Authorized [id number] Closed 09/27/2024 10/22/2025 1 1 Scheduled Active and Recently Administ ered Medications (unrecognized section and content) Medication Order 09/15/2024 09/16/2024 09/17/2024 Aprepitant (EMEND) capsule 40 mg (COMPLETED) 40 mg, Oral, ONCE, 1 dose, On Fri09/15/24 at 0745, Administer 40 mg (1 capsule) ONCE at least 30 minutes prior to induction of anesthesia. Swallow capsules whole. Do NOT crush, chew, or open., Pre-op/Pre-Proc 0722 (Given - Provider: Sandrita Waters RN) ceFAZolin (ANCEF) 2 g in dextrose 100 mL premix IVPB (COMPLETED) 2 g, Intravenous, Administer over 30 Minutes, EVERY 8 HOURS NON-STANDARD, 3 doses, First dose on Fri09/15/24 at 1630, Last dose on Fri09/16/24 at 0830, Post-op/Post-Proc 1703 ($$New Bag$$ - Provider: Sekou Cleaning RN)1704 (Rate/Dose Verify - Provider: Sekou Cleaning RN)1742 (Stopped - Provider: Sekou Cleaning RN)2343 ($$New Bag$$ - Provider: Ashly Mills RN) 0012 (Paused - Provider: Ashly Mills RN)0017 (Restarted - Provider: Ashly Mills RN)0018 (Stopped - Provider: Ashly Mills RN)0928 ($$New Bag$$ - Provider: Lien Page, LOUISE)1015 (Stopped - Provider: Lien Page RN) Citalopram (CELEXA) tablet 40 mg 40 mg, Oral, DAILY EVERY MORNING, First dose on Fri09/15/24 at 1400, Until Discontinued, Post-op/Post-Proc 162 (Given - Provider: Sekou Cleaning RN - Comment: Dose needed to be sent from pharmacy) 920 (Given - Provider: Lien Page RN) 08 (Given - Provider: Ashly Norwood, LOUISE) Enoxaparin Sodium (LOVENOX) injection 40 mg (CANCELED) 40 mg, Subcutaneous, EVERY 24 HOURS, First dose on Fri09/16/24 at 0900, Until Discontinued, For SUBCUTANEOUS route ONLY: alternate injection sites between left and right abdominal wall, pinching location and avoiding area around navel. If unable to use abdominal sites, may use the front or side of thighs., Indications: DVT/PE prophylaxis, Post-op/Post-Proc 917 (Given - Provider: Lien Page RN) Entecavir (BARACLUDE) tablet 0.5 mg 0.5 mg, Oral, DAILY EVERY MORNING, First dose on Fri09/15/24 at 1400, Until Discontinued, Administer on an empty stomach. Swallow tablet whole; do not crush, split or chew. Contact pharmacy if alternate route or dose is needed., Post-op/Post-Proc 1652 (Given - Provider: Sekou Cleaning RN - Comment: needed to be sent from pharmacy) 919 (Given - Provider: Lien Page RN) 820 (Given - Provider: Ashly Norwood RN) Methocarbamol (ROBAXIN) tablet 750 mg 750 mg, Oral, 3 TIMES DAILY, First dose on Fri09/16/24 at 1400, Until Discontinued 1400 (Given - Provider: Lien Page RN)2145 (Not Given - Provider: Addie Alexander RN - Reason: Patient/family refused) 0822 (Not Given - Provider: Ashly Norwood RN - Reason: Patient/family refused)1300 (Not Given - Provider: Ashly Norwood RN - Reason: Patient/family refused) Mirabegron ER (MYRBETRIQ) tablet 50 mg 50 mg, Oral, DAILY, First dose on Fri09/15/24 at 1400, Until Discontinued, Extended release tablet. Do not chew or crush., Post-op/Post-Proc 1652 (Given - Provider: Sekou Cleaning RN - Comment: needed to be sent from pharmacy) 918 (Given - Provider: Lien Page RN) 820 (Given - Provider: Ashly Norwood RN) Mometasone Furo-Formoterol Fum (DULERA) 100-5 MCG/ACT inhaler 2 puff 2 puff, Inhalation, 2 TIMES DAILY, First dose on Fri09/15/24 at 2000, Until Discontinued, Post-op/Post-Proc 2000 (Not Given - Provider: Hortencia Blake RCP - Reason: Patient/family refused) 800 (Given - Provider: Chaparrita Ennis RCP)2026 (Given - Provider: Hortencia Blake RCP) 856 (Given - Provider: Wisam Mcconnell RCP) Mycophenolate mofetil (CELLCEPT) capsule 250 mg 250 mg, Oral, EVERY 12 HOURS NON-STANDARD, First dose on Fri09/15/24 at 2100, Until Discontinued, ---MEDICATION EXPOSURE PRECAUTIONS--- Do not split, break, crush or open this medication. Contact pharmacy if altered route or dose is needed. 2158 (Given - Provider: Ashly Mills RN) 918 (Given - Provider: Lien Page RN)2146 (Given - Provider: Addie Alexander RN) 08 (Given - Provider: Ashly Norwood RN) Pantoprazole (PROTONIX) tablet DR 40 mg 40 mg, Oral, DAILY EVERY MORNING, First dose on Fri09/15/24 at 1400, Until Discontinued, Swallow whole; do not crush or chew., Indications: Continuation of Home Therapy, Post-op/Post-Proc 1553 (Given - Provider: Sekou Cleaning RN) 09 (Given - Provider: Lien Page, LOUISE) 08 (Given - Provider: Ashly Norwood RN) Polyethylene glycol (MIRALAX) packet 17 g 17 g, Oral, DAILY AT BEDTIME, First dose on Fri09/15/24 at 2100, Until Discontinued, Post-op/Post-Proc 2107 (Not Given - Provider: Ashly Mills RN - Reason: Patient/family refused) 2147 (Given - Provider: Addie Alexander RN) povidone-iodine (3M SKIN and NASAL ANTISEPTIC) 5 % topical solution 1 Application (COMPLETED) 1 Application, Nasal, 60 MIN PRE-OP, 1 dose, On Fri09/15/24 at 0530, (1) Use a tissue to clean the inside of both nostrils including the inside tip of the nostril. (2) Tilting the bottle slightly, dip one swab into solution and stir vigorously for 10 seconds. Withdraw the swab slowly to avoid wiping solution off during removal. (3) Insert swab comfortably into one nostril and rotate for 15 seconds covering all surfaces. Then focus on the inside tip of nostril and rotate for an additional 15 seconds. (4) Using a new swab, repeat steps 2 & 3 with the other nostril. (5) Repeat the application in both nostrils using a fresh swab each time. (6) Do not blow nose. If solution drips out of nose, it can be lightly dabbed with a tissue., Pre-op/Pre-Proc 0629 (Given - Provider: Sandrita Waters RN) Scopolamine (TRANSDERM-SCOP) patch 1 patch(Linked Group 1) 1 patch, Transdermal, EVERY 72 HOURS, First dose on Fri09/16/24 at 0145, Until Discontinued, Apply patch to site behind the ear. Rotate sites for each application. Do not cut or alter patch. Each patch delivers 1 mg over 72 hours. 0208 (Patch Applied - Provider: Ashly Mills RN - Comment: RIGHT EAR) 1553 (Due: Patch Removed - Provider: System Discharge - Comment: Time automatically adjusted from order being discontinued) Senna (SENOKOT) tablet 8.6 mg 8.6 mg, Oral, DAILY, First dose on Fri09/15/24 at 1400, Until Discontinued, Post-op/Post-Proc 1554 (Given - Provider: Sekou Cleaning RN) 0919 (Given - Provider: Lien Page RN) 0822 (Given - Provider: Ashly Norwood RN) Sodium chloride 0.9% IV solution 0-250 mL(Linked Group 2) 0-250 mL, Intravenous, SEE ADMIN INSTRUCTIONS, Starting on Fri09/17/24 at 0424, Until Fri09/17/24 at 1223, Use sodium chloride 0.9% IV solution to prime blood tubing. Manually program using infusion pump library (not basic infusion). Medication cannot use IHIS integration. SUMAtriptan (IMITREX) tablet 50 mg (COMPLETED) 50 mg, Oral, ONCE, 1 dose, On Fri09/17/24 at 0345, Max 200 mg/24 hr 0406 (Given - Provid er: Addie Alexander, LOUISE) Tacrolimus (PROGRAF) capsule 2 mg 2 mg, Oral, 2 TIMES DAILY, First dose on Fri09/15/24 at 2100, Until Discontinued, ---MEDICATION EXPOSURE PRECAUTIONS--- Do not split, break, crush, or open doses of this medication. Contact pharmacy if altered dose or route needed., Post-op/Post-Proc 2236 (Given - Provider: Ashly Mills, RN) 09 (Given - Provider: Lien Page, RN)214 (Given - Provider: Addie Alexander, LOUISE) 08 (Given - Provider: Ashly Norwood, RN) VERIFY LINKED PATCH PLACEMENT(Linked Group 1) Other, EVERY 12 HOURS, First dose on Fri09/16/24 at 0900, Until Discontinued, Confirm continued adhesion of scopolamine 1.5 mg/72hr patch at documented site. 09 (Patch Verify - Provider: Lien Page RN)215 (Patch Verify - Provider: Addie Alexander, LOUISE) 08 (Patch Verify - Provider: Ashly Norwood, LOUISE) Continuous Medication Order 09/15/2024 09/16/2024 09/17/2024 albumin human 5 % injection 25 g (CANCELED) 25 g, Intravenous, CONTINUOUS, Starting on Fri09/15/24 at 0930, Until Fri09/15/24 at 1529, Indications: Fluid Resuscitation, Intra-op/Intra-Proc 0938 ($$New Bag$$ - Provider: Teresita Langston MD)1030 (Bolus - Provider: Teresita Langston MD) Phenylephrine (VAZCULEP) 60 mg/250 mL premade IV infusion (CANCELED) 0-5 mcg/kg/min 63.9 kg Dosing weight (0-79.875 mL/hr, rounded to 0-79.9 mL/hr), Intravenous, CONTINUOUS, Starting on Fri09/15/24 at 0700, Until Fri09/15/24 at 1350, Initiate infusion at 0.5 mcg/kg/min. Titrate by 0.5 mcg/kg/min every 1 minute to maintain MAP between 80 and 90 mmHg. Titrate to the lowest rate to achieve target goal. Notify prescriber for inability to achieve goals at maximum dose of ordered range or change in clinical condition. Extravasation Risk, Intra-op/Intra-Proc 0810 ($$New Bag$$ - Provider: Teresita Langston MD)0826 (Rate/Dose Change - Provider: Teresita Langston MD)0832 (Rate/Dose Change - Provider: Teresita Langston MD)0841 (Rate/Dose Change - Provider: Teresita Langston MD)0845 (Stopped - Provider: Teresita Langston MD)0851 (Restarted - Provider: Teresita Langston MD)0857 (Rate/Dose Change - Provider: Teresita Langston MD)0908 (Rate/Dose Change - Provider: Teresita Langston MD)0910 (Rate/Dose Change - Provider: Teresita Lansgton MD)0921 (Rate/Dose Change - Provider: Teresita Langston MD)1006 (Rate/Dose Change - Provider: Teresita Langston MD)1019 (Stopped - Provider: Teresita Langston MD)1038 (Restarted - Provider: Teresita Langston MD)1055 (Stopped - Provider: Teresita Langston MD) remifentanil (ULTIVA) 1 mg in 0.9% sodium chloride 25 mL premade syringe (CANCELED) 0.1-0.2 mcg/kg/min 63.9 kg Dosing weight (9.585-19.17 mL/hr, rounded to 9.6-19.2 mL/hr), Intravenous, CONTINUOUS, Starting on Fri09/15/24 at 0700, Until Fri09/15/24 at 1350, concentration = 40 mcg/ml, Intra-op/Intra-Proc 0810 ($$New Bag$$ - Provider: Teresita Langston MD)0827 (Rate/Dose Change - Provider: Teresita Langston MD)0841 (Rate/Dose Change - Provider: Teresita Langtson MD)0857 (Rate/Dose Change - Provider: Teresita Langston MD)0900 (Rate/Dose Change - Provider: Teresita Langston MD)0908 (Rate/Dose Change - Provider: Teresita Langston MD)0918 (Rate/Dose Change - Provider: Teresita Langston MD)1014 (Rate/Dose Change - Provider: Teresita Langston MD)1020 (Rate/Dose Change - Provider: Teresita Langston MD)1035 (Rate/Dose Change - Provider: Teresita Langston MD)1050 (Rate/Dose Change - Provider: Teresita Langston MD)1100 (Rate/Dose Change - Provider: Teresita Langston MD) sodium chloride 0.9% 1,000 ml with potassium chloride 20 mEq premix IV solution (CANCELED) Intravenous, at 75 mL/hr, CONTINUOUS, Starting on Fri09/15/24 at 1130, Until Fri09/16/24 at 0424, Post-op/Post-Proc 1327 ($$New Bag$$ - Provider: Marina Lopez RN)1503 (Paused - Provider: Sekou Cleaning RN)1506 (Paused - Provider: Sekou Cleaning RN)1538 (Paused - Provider: Sekou Cleaning RN)1602 (Restarted - Provider: Sekou Cleaning RN)1704 (Rate/Dose Verify - Provider: Sekou Cleaning RN)1804 (Rate/Dose Verify - Provider: Sekou Cleaning RN)195 (Paused - Provider: Ashly Mills RN)1958 (Restarted - Provider: Ashly Mills RN)203 (Paused - Provider: Ashly Mills RN)204 (Restarted - Provider: Ashly Mills RN)2343 (Paused - Provider: Ashly Mills RN) 0018 (Restarted - Provider: Ashly Mills RN)0019 (Paused - Provider: Ashly Mills RN)0021 (Restarted - Provider: Ashly Mills RN)0209 (Rate/Dose Verify - Provider: Ashly Mills RN)0457 (Stopped - Provider: Ashly Mills RN) PRN Medication Order 09/15/2024 09/16/2024 09/17/2024 Acetaminophen (TYLENOL) tablet 650 mg 650 mg, Oral, EVERY 6 HOURS NEEDED, Starting on Fri09/17/24 at 0737, Until Fri09/17/24 at 1753, Mild Pain, Maximum dose of acetaminophen is 4000 mg from all sources in 24 hours., Post-op/Post-Proc 0628 (Given - Provider: Addie Alexander RN) Albuterol inhaler 1 puff 1 puff, Inhalation, EVERY 4 HOURS NEEDED, Starting on Fri09/15/24 at 1349, Until Fri09/17/24 at 1753, Shortness of Breath, Wait at least one(1) full minute between inhalations, Post-op/Post-Proc bacitracin ointment (CANCELED) NEEDED, Starting on Fri09/15/24 at 0702, Until Fri09/15/24 at 1128, Intra-op/Intra-Proc 0702 (Given - Provider: Velma Julien MD - Comment: [place] pins- pinning by neurosurgical team.) ceFAZolin (ANCEF) 2 g in dextrose 100 mL premix IVPB (COMPLETED) 2 g, Intravenous, Administer over 30 Minutes, TREE SCOUT TO PROCEDURE, 1 dose, Starting on Fri09/15/24 at 0523, Until Fri09/15/24 at 0828, Other, surgical prophylaxis, Initiate antibiotic administration 30-60 minutes prior to surgical incision and complete administration prior to surgical incision., Pre-op/Pre-Proc 0828 ($$New Bag$$ - Provider: Teresita Langston MD) Haloperidol lactate (HALDOL) injection 1 mg (CANCELED) 1 mg, Intravenous, EVERY 1 HOUR NEEDED, 2 doses, Starting on Fri09/15/24 at 1111, Until Fri09/15/24 at 1529, Nausea, SECOND line antiemetic, Recovery 1349 (Given - Provider: Marina Lopez, LOUISE) hydrALAZINE (APRESOLINE) injection 10 mg(Linked Group 3) 10 mg, Intravenous, EVERY 1 HOUR NEEDED, Starting on Fri09/15/24 at 1349, Until Fri09/17/24 at 1753, SBP > 160 mmHg with HR <60 bpm, Use as initial dose. Higher dose may be administered if lower dose was previously documented as ineffective 10 minutes after administration and did not result in adverse effects (HR>90), Post-op/Post-Proc hydrALAZINE (APRESOLINE) injection 20 mg(Linked Group 3) 20 mg, Intravenous, EVERY 1 HOUR NEEDED, Starting on Fri09/15/24 at 1349, Until Fri09/17/24 at 1753, SBP > 160 mmHg with HR <60 bpm, Higher dose may be administered if lower dose was previously documented as ineffective 10 minutes after administration and did not result in adverse effects (HR>90). Decrease back to lower dose if patient has adverse effects, or no PRN used in previous 3 hours, Post-op/Post-Proc HYDROmorphone (DILAUDID) injection 0.2 mg(Linked Group 4) 0.2 mg, Intravenous, EVERY 3 HOURS NEEDED, Starting on Fri09/15/24 at 1349, Until Fri09/17/24 at 1753, Severe Pain, Use as initial dose if pain was unresponsive to enteral opioid or patient unable to take enteral opioid. Higher dose may be administered if lower dose was previously documented as ineffective and did not result in adverse effects (RR<10, negative change in RASS of 2 or more). Do not administer if RASS is less than -2, Post-op/Post-Proc 1553 (Given - Provider: Sekou Cleaning RN)1957 (See Alternative - Provider: Ashly Mills RN) 0158 (See Alternative - Provider: Ashly Mills RN)0504 (See Alternative - Provider: Ashly Mills RN)0918 (See Alternative - Provider: Lien Page, LOUISE)1504 (See Alternative - Provider: Lien Page, LOUISE)1814 (Given - Provider: Lien Page RN)2148 (Given - Provider: Addie Alexander RN) HYDROmorphone (DILAUDID) injection 0.5 mg(Linked Group 4) 0.5 mg, Intravenous, EVERY 3 HOURS NEEDED, Starting on Fri09/15/24 at 1349, Until Fri09/17/24 at 1753, Severe Pain, Higher dose may be administered if lower dose was previously documented as ineffective and did not result in adverse effects (RR<10, negative change in RASS of 2 or more). Decrease back to lower dose if patient has adverse effects or no PRN use in previous 12 hours. Do not administer if RASS is less than -2, Post-op/Post-Proc 1553 (See Alternative - Provider: Sekou Cleaning, LOUISE)1957 (Given - Provider: Ashly Mills RN) 0158 (Given - Provider: Ashly Mills RN)0504 (Given - Provider: Ashly Mills RN)0918 (Given - Provider: Lien Page, RN)1504 (Given - Provider: Lien Page, RN)1814 (See Alternative - Provider: Lien Page RN)2148 (See Alternative - Provider: Addie Alexander RN) HYDROmorphone (DILAUDID) injection 0.5 mg (CANCELED) 0.5 mg, Intravenous, EVERY 10 MINUTES NEEDED, 8 doses, Starting on Fri09/15/24 at 1111, Until Fri09/15/24 at 1529, Moderate Pain, Severe Pain, Mild Pain, May give a total of 4mg in PACU., Recovery 1139 (Given - Provider: Marian Lopez, LOUISE)1150 (Given - Provider: Marina Lopez, LOUISE)1205 (Given - Provider: Marina Lopez, LOUISE) Ipratropium-albuterol (DUONEB) 0.5-2.5 (3) MG/3ML nebulizer solution 3 mL 3 mL, Nebulization, EVERY 6 HOURS NEEDED, Starting on Lola 09/16/24 at 0815, Until Fri09/17/24 at 1753, Shortness of Breath, Respiratory Distress, Wheezing Labetalol (NORMODYNE) injection 10 mg(Linked Group 5) 10 mg, Intravenous, EVERY 1 HOUR NEEDED, Starting on 09/15/24 at 1349, Until Fri09/17/24 at 1753, SBP > 160 mmHg with HR >60 bpm, Use as initial dose. Higher dose may be administered if lower dose was previously documented as ineffective 10 minutes after administration and did not result in adverse effects (HR<60) For vials: labetalol should be treated as a SINGLE USE VIAL. Discard remaining contents after one use., Post-op/Post-Proc Labetalol (NORMODYNE) injection 20 mg(Linked Group 5) 20 mg, Intravenous, EVERY 1 HOUR NEEDED, Starting on Fri09/15/24 at 1349, Until Fri09/17/24 at 1753, SBP > 160 mmHg with HR >60 bpm, Higher dose may be administered if lower dose was previously documented as ineffective 10 minutes after administration and did not result in adverse effects (HR<60). Decrease back to lower dose if patient has adverse effects, or no PRN used in previous 3 hours For vials: labetalol should be treated as a SINGLE USE VIAL. Discard remaining contents after one use., Post-op/Post-Proc Ondansetron 4mg/2ml (ZOFRAN) injection 4 mg (COMPLETED) 4 mg, Intravenous, ONCE NEEDED, 1 dose, Starting on Fri09/15/24 at 1111, Until Fri09/15/24 at 1307, Nausea / Vomiting, FIRST line antiemetic, Do not administer within 6 hours of intra-operative dose., Recovery 1307 (Given - Provider: Marina Lopez, LOUISE) Ondansetron 4mg/2ml (ZOFRAN) injection 4 mg 4 mg, Intravenous, EVERY 4 HOURS NEEDED, Starting on Fri09/15/24 at 1932, Until Fri09/17/24 at 1753, Nausea / Vomiting 1957 (Given - Provider: Ashly Mills RN) 0021 (Given - Provider: Ashly Mills RN)0504 (Given - Provider: Ashly Mills RN)1504 (Given - Provider: Lien Page RN) oxyCODONE (ROXICODONE) tablet 5 mg(Linked Group 6) 5 mg, Oral, EVERY 4 HOURS NEEDED, Starting on Fri09/15/24 at 1230, Until Fri09/17/24 at 1753, Moderate Pain, Severe Pain, Use as initial dose. Higher dose may be administered if lower dose was previously documented as ineffective and did not result in adverse effects (RR<10, negative change in RASS of 2 or more). Do not administer if RASS is less than -2. , Post-op/Post-Proc 1324 (Given - Provider: Marina Lopez RN)1930 (See Alternative - Provider: Ashly Mills RN)2341 (Given - Provider: Ashly Mills RN) 1504 (Given - Provider: Lien Page RN)1908 (Given - Provider: Lien Page RN) 0032 (Given - Provider: Addie Alexander, LOUISE)1151 (Given - Provider: Ashly Norwood RN) oxyCODONE HCl (ROXICODONE) tablet 10 mg(Linked Group 6) 10 mg, Oral, EVERY 4 HOURS NEEDED, Starting on Fri09/15/24 at 1230, Until Fri09/17/24 at 1753, Moderate Pain, Severe Pain, Higher dose may be administered if lower dose was previously documented as ineffective and did not result in adverse effects (RR<10, negative change in RASS of 2 or more). Decrease back to lower dose if patient has adverse effects or no PRN use in previous 12 hours. Do not administer if RASS is less than -2, Post-op/Post-Proc 1324 (See Alternative - Provider: Marina Lopez RN)1930 (Canceled Entry - Provider: Ashly Mills RN - Comment: pt. with emesis. pill visually seen in vomit by RN)2341 (See Alternative - Provider: Ashly Mills RN) 1504 (See Alternative - Provider: Lien Page RN)1908 (See Alternative - Provider: Lien Page RN) 0032 (See Alternative - Provider: Addie Alexander RN)1151 (See Alternative - Provider: Ashly Norwood RN) Sterile water irrigation (CANCELED) NEEDED, Starting on Fri09/15/24 at 0703, Until Fri09/15/24 at 1128, Intra-op/Intra-Proc 0830 (Given - Provider: Ashtyn Ivory RN - Comment: used to clean sterile instruments throughout case.) SUMAtriptan (IMITREX) tablet 25 mg (COMPLETED) 25 mg, Oral, ONCE NEEDED, 1 dose, Starting on Fri09/15/24 at 1349, Until Fri09/15/24 at 1653, Migraine 1653 (Given - Provider: Sekou Cleaning RN) SUMAtriptan (IMITREX) tablet 50 mg (COMPLETED) 50 mg, Oral, ONCE NEEDED, 1 dose, Starting on Fri09/16/24 at 0954, Until Fri09/16/24 at 1203, Migraine, Max 200 mg/24 hr 1203 (Given - Provider: Lien Page RN) thrombin topical solution (CANCELED) NEEDED, Starting on Fri09/15/24 at 0702, Until Fri09/15/24 at 1128, Intra-op/Intra-Proc 0830 (Given - Provider: Velma Julien MD - Comment: mixed with 100mL tisusol- used to soak gelfoam and cotton patties.) tissusol irrigation solution (CANCELED) NEEDED, Starting on Fri09/15/24 at 0703, Until Fri09/15/24 at 1128, Intra-op/Intra-Proc 0830 (Given - Provider: Ashtyn Ivory RN - Comment: mixed with 5000 units Thrombin- used to soak gelfoam and cotton patties.)0928 (Given - Provider: Velma Julien MD) Zolpidem (AMBIEN) tablet 10 mg 10 mg, Oral, DAILY AT BEDTIME NEEDED, Starting on Fri09/15/24 at 1349, Until Fri09/17/24 at 1753, Sleep, Post-op/Post-Proc 2159 (Given - Provider: Ashly Mills RN) 2146 (Given - Provider: Addie Alexander RN) Linked Groups Order Group 1: Scopolamine (TRANSDERM-SCOP) patch 1 patchJump to med 1 patch, Transdermal, EVERY 72 HOURS, First dose on Fri09/16/24 at 0145, Until Discontinued, Apply patch to site behind the ear. Rotate sites for each application. Do not cut or alter patch. Each patch delivers 1 mg over 72 hours. And VERIFY LINKED PATCH PLACEMENTJump to med Other, EVERY 12 HOURS, First dose on Fri09/16/24 at 0900, Until Discontinued, Confirm continued adhesion of scopolamine 1.5 mg/72hr patch at documented site. Group 2: PREPARE TO TRANSFUSE PLATELET: 1 Units (COMPLETED) Routine, Prepare 1 Units And TRANSFUSE PLATELETS: 1 Units (CANCELED) Routine, Transfuse 1 Units And Sodium chloride 0.9% IV solution 0-250 mLJump to med 0-250 mL, Intravenous, SEE ADMIN INSTRUCTIONS, Starting on Fri09/17/24 at 0424, Until Fri09/17/24 at 1223, Use sodium chloride 0.9% IV solution to prime blood tubing. Manually program using infusion pump library (not basic infusion). Medication cannot use IHIS integration. Group 3: hydrALAZINE (APRESOLINE) injection 10 mgJump to med 10 mg, Intravenous, EVERY 1 HOUR NEEDED, Starting on Fri09/15/24 at 1349, Until Fri09/17/24 at 1753, SBP > 160 mmHg with HR <60 bpm, Use as initial dose. Higher dose may be administered if lower dose was previously documented as ineffective 10 minutes after administration and did not result in adverse effects (HR>90), Post-op/Post-Proc Or hydrALAZINE (APRESOLINE) injection 20 mgJump to med 20 mg, Intravenous, EVERY 1 HOUR NEEDED, Starting on Fri09/15/24 at 1349, Until Fri09/17/24 at 1753, SBP > 160 mmHg with HR <60 bpm, Higher dose may be administered if lower dose was previously documented as ineffective 10 minutes after administration and did not result in adverse effects (HR>90). Decrease back to lower dose if patient has adverse effects, or no PRN used in previous 3 hours, Post-op/Post-Proc Group 4: HYDROmorphone (DILAUDID) injection 0.2 mgJump to med 0.2 mg, Intravenous, EVERY 3 HOURS NEEDED, Starting on Fri09/15/24 at 1349, Until Fri09/17/24 at 1753, Severe Pain, Use as initial dose if pain was unresponsive to enteral opioid or patient unable to take enteral opioid. Higher dose may be administered if lower dose was previously documented as ineffective and did not result in adverse effects (RR<10, negative change in RASS of 2 or more). Do not administer if RASS is less than -2, Post-op/Post-Proc Or HYDROmorphone (DILAUDID) injection 0.5 mgJump to med 0.5 mg, Intravenous, EVERY 3 HOURS NEEDED, Starting on Fri09/15/24 at 1349, Until Fri09/17/24 at 1753, Severe Pain, Higher dose may be administered if lower dose was previously documented as ineffective and did not result in adverse effects (RR<10, negative change in RASS of 2 or more). Decrease back to lower dose if patient has adverse effects or no PRN use in previous 12 hours. Do not administer if RASS is less than -2, Post-op/Post-Proc Group 5: Labetalol (NORMODYNE) injection 10 mgJump to med 10 mg, Intravenous, EVERY 1 HOUR NEEDED, Starting on Fri09/15/24 at 1349, Until Fri09/17/24 at 1753, SBP > 160 mmHg with HR >60 bpm, Use as initial dose. Higher dose may be administered if lower dose was previously documented as ineffective 10 minutes after administration and did not result in adverse effects (HR<60) For vials: labetalol should be treated as a SINGLE USE VIAL. Discard remaining contents after one use., Post-op/Post-Proc Or Labetalol (NORMODYNE) injection 20 mgJump to med 20 mg, Intravenous, EVERY 1 HOUR NEEDED, Starting on Fri09/15/24 at 1349, Until Fri09/17/24 at 1753, SBP > 160 mmHg with HR >60 bpm, Higher dose may be administered if lower dose was previously documented as ineffective 10 minutes after administration and did not result in adverse effects (HR<60). Decrease back to lower dose if patient has adverse effects, or no PRN used in previous 3 hours For vials: labetalol should be treated as a SINGLE USE VIAL. Discard remaining contents after one use., Post-op/Post-Proc Group 6: oxyCODONE (ROXICODONE) tablet 5 mgJump to med 5 mg, Oral, EVERY 4 HOURS NEEDED, Starting on Fri09/15/24 at 1230, Until Fri09/17/24 at 1753, Moderate Pain, Severe Pain, Use as initial dose. Higher dose may be administered if lower dose was previously documented as ineffective and did not result in adverse effects (RR<10, negative change in RASS of 2 or more). Do not administer if RASS is less than -2. , Post-op/Post-Proc Or oxyCODONE HCl (ROXICODONE) tablet 10 mgJump to med 10 mg, Oral, EVERY 4 HOURS NEEDED, Starting on Fri09/15/24 at 1230, Until 09/17/24 at 1753, Moderate Pain, Severe Pain, Higher dose may be administered if lower dose was previously documented as ineffective and did not result in adverse effects (RR<10, negative change in RASS of 2 or more). Decrease back to lower dose if patient has adverse effects or no PRN use in previous 12 hours. Do not administer if RASS is less than -2, Post-op/Post-Proc FOR RECORDS PERTAINING TO PATIENTS WHO ARE [...] BE BASED ON THE PRIMARY CLINICAL RECORDS. [facility]. provides no warranty or guarantee of the accuracy or completeness of information in this document.
[2025-01-06 08:15] LABS: CREATININE FINGERSTICK < 1.0 mg/dL (0.55-1.02); EGFR FINGERSTICK > 60.0000 mL/min (>60)
== END | disposition home or self-care (01) ==
LOC: CT 07:43
PROVIDERS: PCP Family Medicine; Referring Provider Family Medicine; Visit Provider Family Medicine
DX: Z01.812 Encounter for preprocedural laboratory examination (principal); R93.89 Abnormal findings on diagnostic imaging of other specified body structures
CPT/HCPCS: 71260; Q9967

== ENCOUNTER 2025-01-10 11:01 | Emergency (ER) | payer MEDICARE, MEDICAID, SELFPAY ==
[2025-01-10] VITALS (9 sets, daily range): BP systolic 137–164; BP diastolic 75–84; PULSE 78–105; RESP 14–20; TEMP 36.6–37.2; O2SAT 96–100; BMI 24.0
--- NOTE | 2025-01-10 11:44 | EKG12_ITS ---
Test Reason : SOB Blood Pressure : */* mmHG Vent. Rate : 98 BPM Atrial Rate : 98 BPM P-R Int : 142 ms QRS Dur : 82 ms QT Int : 370 ms P-R-T Axes : 17 -14 55 degrees QTcB Int : 472 ms Normal sinus rhythm Inferior infarct , age undetermined Abnormal ECG Confirmed by MOE BROOKS, SHLOMO ([id number]), editor continuity and script TADEO NEWTON ([id number]) on 01/11/2025 1:01:09 PM Referred By: Confirmed By: SHLOMO ROSA MD
--- NOTE | 2025-01-10 11:49 | ED.VIS.DYS ---
HPI History of Present Illness Chief Complaint: Shortness of Breath Informant: patient Narrative Narrative: Patient is a 59-year-old female with relatively complex medical history including asthma, prior liver transplant, polyneuropathy, anxiety, epilepsy, nonepileptic seizures and fibromyalgia as well as restless leg syndrome presenting with worsening cough, generalized weakness and fever. Patient states has been compliant with her medications. Does have history of DVT while . She states the past week she is has not been feeling well. Started with a sore throat initially thought maybe she had strep throat but now it seems of moved into her lungs. States she was sleeping a lot all week but then had to go to work yesterday. She has had fever up to 102. She has developed quite a harsh cough and is coughing up phlegm. She does have a history of pneumonia. She has chest pain associated with all of her coughing. She has been taking ibuprofen for her aches and pains as well as cough. She denies any swelling of her legs. Denies any GI or symptoms. She she has been drinking a lot and having a lot of urine output because of that. Also notes that she has had a lot of stressors recently moved. She came in for further evaluation. No other complaints or concerns reported at this time. Patient is on tacrolimus, mycophenolate for immunosuppression associate with her transplant. Denies any significant alcohol use (states 11 beer from time to time) and denies any tobacco use. [facility] Medical History Asthma COPD (chronic obstructive pulmonary disease) Osteoporosis Pneumonia Acute hyponatremia Nausea & vomiting Acute abdominal pain in right flank Major depressive disorder PTSD (post-traumatic stress disorder) Fatigue Gastric ulcer Seasonal allergies Neuropathy Cirrhosis Serum ammonia increased Wears contact lenses Wears glasses Cancer Alcohol use Bladder disease Arthritis DVT (deep venous thrombosis) Restless legs Back pain Migraine headache TIA (transient ischemic attack) Blackout Seizures Dietary restriction History of ulceration History of IBS Gastric reflux Non-smoker Shortness of breath on exertion Leg cramps History of pain when walking History of stress test History of echocardiogram COVID Immunocompromised state due to drug therapy CVA (cerebral vascular accident) DVT (deep venous thrombosis) Epilepsy Diabetes Clostridium difficile colitis Anxiety Esophageal varices Hiatal hernia Asthma Migraine MARMOLEJO (nonalcoholic steatohepatitis) Home Medications ?Medication ?Instructions ?Recorded ?Last Taken ?Type albuterol sulfate 90 mcg/actuation 1 - 2 puff inhalation Q4H PRN PRN 02/08/18 01/09/25 History aerosol inhaler breathing zolpidem 10 mg tablet (Ambien) 10 mg PO QHS sleep 02/17/20 01/09/25 History citalopram 40 mg tablet 40 mg PO DAILY 30 days #30 tabs 11/19/22 01/09/25 Rx mirabegron 50 mg tablet,extended 50 mg PO QHS . 12/09/22 04/07/23 History release 24 hr (Myrbetriq) naratriptan 2.5 mg tablet 2.5 mg .Route .COMPLEX #9 tabs 01/07/24 01/09/25 Rx ropinirole 1 mg tablet 1 mg PO QHS PRN RLS #30 tabs 01/07/24 Unknown Rx carbamazepine 100 mg chewable 100 mg PO TID #90 tabs 01/15/24 Unknown Rx tablet fluticasone 100 mcg-salmeterol 50 1 ea inhalation BID 05/20/24 01/09/25 History mcg/dose blistr powdr for inhalation (Wixela Inhub) entecavir 0.5 mg tablet 0.5 mg PO DAILY hepatitis B 30 08/19/24 01/09/25 Rx days #30 tabs tacrolimus 1 mg capsule, 2 mg (2 x 1 mg) PO Q12H #120 caps 08/19/24 01/09/25 Rx immediate-release pantoprazole 40 mg tablet,delayed 40 mg PO DAILY 90 days #90 tabs 11/23/24 01/09/25 Rx release (Protonix) mycophenolate mofetil 250 mg 250 mg PO BID antirejection 30 12/22/24 01/09/25 Rx capsule (CellCept) days #60 caps azithromycin 250 mg tablet 250 mg PO DAILY #4 TABLETS 01/10/25 Unknown Rx prednisone 20 mg tablet 40 mg (2 x 20 mg) PO DAILY #8 tabs 01/10/25 Unknown Rx Allergy/AdvReac Type Severity Reaction Status Date / Time sulfamethoxazole (From Allergy Fever and Verified 01/10/25 11:03 Bactrim) skin rash trimethoprim (From Bactrim) Allergy Fever and Verified 01/10/25 11:03 skin rash diphenhydramine HCl (From AdvReac climb the Verified 01/10/25 11:03 Benadryl) rose lorazepam (From Ativan) AdvReac Climb the Verified 01/10/25 11:03 rose prochlorperazine edisylate AdvReac climb the Verified 05/20/24 13:18 (From Compazine) rose prochlorperazine maleate AdvReac climb out Verified 01/10/25 11:03 (From Compazine) of my body promethazine HCl (From AdvReac climb the Verified 01/10/25 11:03 Phenergan) rose topiramate (From Topamax) AdvReac Other Verified 01/10/25 11:03 tramadol AdvReac climb the Verified 01/10/25 11:03 rose Family History Mother Heart disease COPD (chronic obstructive pulmonary disease) Father Chronic alcoholism Surgical History History of transplantation, liver Hx of esophagogastroduodenoscopy Hx of colonoscopy History of lumbar spinal fusion Hx of ventral hernia repair Hx of right knee surgery Hx of left knee surgery Hx of hysterectomy Hx of dilation and curettage Hx of hemorrhoidectomy Hx of tubal ligation Hx of breast reduction, elective Hx of repair of right rotator cuff Hx of cholecystectomy H/O liver transplant Liver transplant recipient Social History Smoking Status: Never smoker second hand exposure: No alcohol intake: former substance use type: does not use what type of physical activity do you participate in: walking ROS ROS ED Constitutional Constitutional ED: Reports chills and fever(s) Eyes Eyes: Denies change in vision ENT ENT ED: Reports sore throat; Denies ear pain or rhinorrhea Cardiovascular Cardiovascular: Reports chest pain and other Details: States chest pain is from coughing Respiratory/Chest Respiratory/Chest: Reports cough, dyspnea and sputum Gastrointestinal Gastrointestinal: Denies abdominal pain, diarrhea or vomiting Musculoskeletal Musculoskeletal: Reports arthralgias and myalgias Integumentary Denies rash Neurologic Neurologic: Reports weakness Hematologic/Lymphatic Hematologic/Lymphatic: Denies easy bleeding or easy bruising EXAM Physical Exam Const Vital Signs: 01/10/25 11:01 01/10/25 11:11 01/10/25 11:48 Temperature 99 F Temperature Source Oral Pulse Rate 105 H Respiratory Rate 19 H Respiratory Effort Short of Breath Respiratory Depth Normal Blood Pressure 164/84 H Blood Pressure Mean 110 Pulse Ox 99 Oxygen Delivery Method Room Air Room Air Room Air 01/10/25 11:53 01/10/25 11:53 01/10/25 12:03 Temperature 97.8 F Temperature Source Temporal Pulse Rate 98 86 Respiratory Rate 20 H 20 H Respiratory Effort Respiratory Depth Blood Pressure 144/77 H Blood Pressure Mean 99 Pulse Ox 100 96 Oxygen Delivery Method Room Air Room Air 01/10/25 13:00 01/10/25 14:00 01/10/25 15:00 Temperature 98.0 F 98.6 F 98.6 F Temperature Source Oral Oral Oral Pulse Rate 90 78 89 Respiratory Rate 14 16 18 Respiratory Effort Respiratory Depth Blood Pressure 150/75 H 141/81 H 151/78 H Blood Pressure Mean 100 101 102 Pulse Ox 100 100 99 Oxygen Delivery Method Room Air Room Air Room Air 01/10/25 15:57 Temperature 97.8 F Temperature Source Pulse Rate 79 Respiratory Rate 16 Respiratory Effort Respiratory Depth Blood Pressure 137/84 H Blood Pressure Mean 101 Pulse Ox 100 Oxygen Delivery Method Positive well nourished and well developed General Appearance ED: well developed and NAD HEENT Reports TM's clear and dry mucous membranes atraumatic Tympanic Membrane ED: Yes TM's clear Mouth ED: Yes dry mucous membranes Mouth: dry mucous membranes Eyes PERRL Neck supple and no JVD Neck Narrative: Superior anterior cervical chain lymphadenopathy present bilateral Resp normal respiratory effort Resp Narrative: Harsh bronchial cough intermittently during exam Auscultation: Negative for rales, rhonchi, wheezes or diminished lung sounds Cardio regular rate, regular rhythm and no murmurs GI non-tender and non-distended Extremity normal to inspection Extremity Narrative: 2+ radial DP pulses General Extremety ED: Negative for edema General Extremity: Negative for edema Neuro oriented x3 Sensorium / Orientation: alert Motor Exam: Negative for general weakness Psych mental status grossly normal Skin no wounds and skin turgor normal General Skin Exam: Negative for jaundice MDM MDM MDM Narrative Medical decision making narrative: Patient evaluated for worsening shortness of breath and malaise. Cervical sore throat now has cough. Is immunosuppressed from liver transplant. Differential includes sepsis, pneumonia, PE, SHANTELL, bronchitis, viral syndrome, fluid overload and asthma exacerbation as well as pleurisy. Lower suspicion for ACS.. Patient given DuoNeb with some improvement of her breathing. Is given morphine for pain associated with her coughing on the emergency room and IV fluids. Workup includes CBC which shows a mild leukopenia with white blood cell count of 4.1. D-dimer is elevated 1.02 and CTA is added on. CMP largely normal. Urinalysis not consistent with infection. EKG shows normal sinus rhythm with no acute ischemic changes. I do not think she requires trending of her troponins. CTA of the chest does not show any pulmonary emboli or other acute cardiopulmonary process however there is splenomegaly and moderate intrahepatic biliary dilation which is increased from prior. Needs further evaluation if indicated. Patient is ambulated in the emergency room and does not desaturate. Her procalcitonin is normal and have a lower suspicion for a bacterial infection. Will treat her for bronchitis with azithromycin, prednisone and aerosols. Is informed of CT findings and need for outpatient follow-up with her GI doctor for this. States she currently follows with Dr. June. Patient given return precautions. Is also dosed with Toradol for her back pain 1 the emergency room. I did speak to patient's GI doctor, Dr. June, after patient was discharged. He will follow-up outpatient for CT findings. Lab Data Attestation: I reviewed the patient's lab results. Labs: Laboratory Results - last 24 hr 01/10/25 01/10/25 11:55 12:28 WBC 4.1 L RBC 4.57 Hgb 12.6 Hct 37.1 MCV 81.2 MCH 27.6 MCHC 34.0 RDW Std Deviation 39.6 RDW Coeff of Nicole 13.7 Plt Count 70 L MPV 10.6 Immature Gran % (Auto) 0.200 Neut % (Auto) 64.8 Lymph % (Auto) 22.3 [place] % (Auto) 9.8 Eos % (Auto) 2.7 Baso % (Auto) 0.2 Absolute Neuts (auto) 2.6 Absolute Lymphs (auto) 0.91 Nucleated RBC % 0 PT 13.8 INR 1.0 APTT 26.4 D-Dimer Quant (PE/DVT) 1.02 H* Sodium Cancelled 143 Potassium Cancelled 3.1 L Chloride Cancelled 109 H Carbon Dioxide Cancelled 24.1 Anion Gap Cancelled 11 BUN Cancelled 5 Creatinine Cancelled 0.75 Estim Creat Clear Calc Cancelled 71.46 Est GFR (MDRD) Non-Af Cancelled 93 BUN/Creatinine Ratio Cancelled 6.9 L Glucose Cancelled 159 H Lactic Acid 2.6 H* Calcium Cancelled 8.4 Total Bilirubin Cancelled 0.57 AST Cancelled 25 ALT Cancelled 8 Alkaline Phosphatase Cancelled 89 Total Protein Cancelled 6.8 Albumin Cancelled 3.7 Globulin Cancelled 3.1 Albumin/Globulin Ratio Cancelled 1.2 Procalcitonin Cancelled 0.08 Urine Color Yellow Urine Clarity Clear Urine pH 7.0 Ur Specific [place] 1.010 Urine Protein 15 H Urine Glucose (UA) 100 H Urine Ketones Negative Urine Occult Blood Negative Urine Nitrite Negative Urine Bilirubin Negative Urine Urobilinogen Normal Ur Leukocyte Esterase Negative Urine RBC 0 SEEN Urine WBC 0 SEEN Ur Squamous Epith Cells 0 SEEN Urine Bacteria 0 SEEN Urine Mucus 0 SEEN Radiography Diagnostic Testing: Clinical Impression(s) from Imaging Studies Chest CTA 01/10/25 12:34 IMPRESSION: There is splenomegaly partly visible with the spleen measuring at least 14 cm. Moderate intrahepatic biliary dilation is visible. This is increased compared to the prior. Further evaluation is indicated which could include hepatobiliary scan. There is no visible pulmonary embolus. Reading [facility] Rhythm Strip Rhythm Strip: Sinus Rhythm Rate: 98 EKG Initial EKG: Attestation: I personally reviewed and interpreted this EKG as follows: Interpretation: Sinus Rhythm Comments: Normal sinus rhythm at a rate of 98 bpm Normal axis Normal intervals Normal ST segments Compared to prior EKG on 05/20/2024, no acute changes Prior EKG tracings: available for review Prior: Unchanged Discharge Plan Triage Chief Complaint: Shortness of Breath ED Provider: Sindhu Jay Dx/Rx/DC Orders Clinical Impression: Bronchitis, Abnormal CT scan, liver Instructions: ED Bronchitis with Wheezing (Adult) Prescriptions: New prednisone 20 mg tablet 40 mg PO DAILY Qty: 8 0RF azithromycin 250 mg tablet 250 mg PO DAILY Qty: 4 0RF No Action zolpidem [Ambien] 10 mg tablet 10 mg PO QHS citalopram 40 mg tablet 40 mg PO DAILY 30 Days Qty: 30 2RF naratriptan 2.5 mg tablet 2.5 mg .ROUTE .COMPLEX Qty: 9 6RF Rx Instructions: Take 1 tablet orally every 4 hours as needed for headache up to 2 tablets daily. ropinirole 1 mg tablet 1 mg PO QHS PRN (Reason: RLS) Qty: 30 4RF albuterol sulfate 1 INHALER inhaler 1 - 2 puff inhalation Q4H PRN PRN (Reason: breathing) mirabegron [Myrbetriq] 50 mg tablet extended release 24 hr 50 mg PO QHS Patient Comments: Take 1 tablet orally once daily fluticasone propion-salmeterol [Wixela Inhub] 100-50 mcg/dose blister with device 1 ea INHALATION BID carbamazepine 100 mg tablet,chewable 100 mg PO TID Qty: 90 6RF entecavir 0.5 mg tablet 0.5 mg PO DAILY 30 Days Qty: 30 11RF tacrolimus 1 mg capsule 2 mg PO Q12H Qty: 120 9RF pantoprazole [Protonix] 40 mg tablet,delayed release (DR/EC) 40 mg PO DAILY 90 Days Qty: 90 3RF mycophenolate mofetil [CellCept] 250 mg capsule 250 mg PO BID 30 Days Qty: 60 9RF Primary Care Provider: Geeta Odell Referrals: Geeta Odell MD [Primary Care Provider] - Activity Restrictions/Additional Instructions: I suspect you have a viral syndrome that is causing bronchitis. Continue using your breathing treatments every 4-6 hours 1 to 2 puffs as needed for wheezing, coughing fits or chest tightness. You been prescribed medications to help with this including prednisone and azithromycin. Your CT did show some findings of some increased dilation of your intrahepatic biliary ducts. There is also some enlargement of your spleen. Please follow-up with either your transplant team or Dr. June for this. Print Language: Japanese Disposition Disposition: Home, Self Care Discharge Date/Time: 01/10/25 15:57
[2025-01-10] MEDS: 0.9% Normal Saline (1000mL) 1,000 ML 999 ML IV (11:56)
[2025-01-10 12:09] LABS: Mucous, Urine 0 SEEN /hpf (<or=2+); Red Blood Cells-Urine 0 SEEN /hpf (0-5); Squamous Epithelial Cells - UA 0 SEEN /hpf (5-10)
[2025-01-10 12:13] LABS: Color, Urine Yellow (Yellow); Glucose, Dipstick 100 mg/dl (Normal); Ketone-Dipstick Negative (Negative); Leukocyte Esterase-Dipstick Negative /ul (Negative); Nitrite-Dipstick Negative (Negative); Occult Blood-Urine Negative /ul (Negative); Protein-Dipstick 15 mg/dl (Negative); Specific Gravity, Urine 1.010 (1.002-1.030); Urine Bilirubin Dipstick Negative (Negative)
[2025-01-10 12:21] LABS: Hematocrit 37.1 % (37-47); Hemoglobin 12.6 g/dL (12.0-15.0); Immature Granulocytes Count 0.010 X10^3/uL (0.0-0.0); Mean Corp Hgb Conc 34.0 g/dL (32-36); Mean Corpuscular Volume 81.2 fL (81-99); Mean Platelet Vol. 10.6 fl (6.2-12.0); NRBC Flagged by Analyzer 0 % (0-5); POSITIVE COUNT YES; Platelet Count 70 K/mm3 (150-450); RBC Distribution Width CV 13.7 % (11.6-14.6); RBC Distribution Width SD 39.6 fl (35.1-43.9); Red Blood Count 4.57 M/mm3 (4.2-5.4); White Blood Count 4.1 K/mm3 (4.4-11.0)
[2025-01-10 12:23] LABS: Prothrombin Time (Protime)PT. 13.8 SECONDS (11.7-14.9)
[2025-01-10 12:24] LABS: Partial Thromboplast Time 26.4 Seconds (24.1-36.2)
[2025-01-10 12:30] LABS: D-Dimer Quantitative (DVT/PE) 1.02 FEU/ug/m (0.27-0.49)
--- NOTE | 2025-01-10 12:34 | CT_ITS ---
PROCEDURE: CTA CHEST W/WO CONTRAST 01/10/2025 REASON FOR EXAM: COUGH, FEVER, ELEVATED DIMER TECHNIQUE: CTA CHEST W/WO CONTRAST Multiplanar Sagittal and Coronal images were obtained. CONTRAST: 99 cc Isovue 370 One or more dose reduction techniques were used (e.g., Automated exposure control, adjustment of the mA and/or kV according to patient size, use of iterative reconstruction technique). RADIATION DOSE SUMMARY: DLP: 370 mGycm COMPARISON: January 06, 2025 FINDINGS: Hardware: Surgical clips are noted in the right upper quadrant Lymph nodes: There is no pathologic adenopathy by size criteria. Heart: Atherosclerotic calcifications are noted RV/LV Diameter Ratio: 0.8 Thoracic Aorta: Intact Pulmonary Vessels: Main pulmonary artery Hounsfield units = 370. There is no visible pulmonary embolus. Lungs and Airways: There is no infiltrate or consolidation. There is no suspicious pulmonary nodule or mass. Pleura: There is no pneumothorax or effusion. Upper Abdomen: There is splenomegaly partly visible with the spleen measuring at least 14 cm. Moderate intrahepatic biliary dilation is visible. Bones: Chronic appearing posterior right 10th rib fracture is unchanged. CT/CTA Chest W/WO Contrast IMPRESSION: There is splenomegaly partly visible with the spleen measuring at least 14 cm. Moderate intrahepatic biliary dilation is visible. This is increased compared to the prior. Further evaluation is indicated which could include hepatobiliary scan. There is no visible pulmonary embolus. Reading Location: [facility]
[2025-01-10 13:19] LABS: AST(SGOT) 25 U/L (<=31); Alanine Aminotransfer ALT/SGPT 8 U/L (<=34); Albumin, Serum 3.7 g/dL (3.5-5.0); Alkaline Phosphatase 89 U/L (35-104); Anion Gap 11 (5-15); BUN 5 mg/dL (4-19); BUN/Creat Ratio 6.9 RATIO (10-20); Calcium,Total 8.4 mg/dL (7.6-11.0); Carbon Dioxide 24.1 mmol/L (21.0-32.0); Chloride 109 mmol/L (98-108); Estimated Creatinine Clearance 71.46 ml/min (50-250); Globulin 3.1 g/dL (2.2-4.2); Glucose 159 mg/dL (70-99); Potassium 3.1 mmol/L (3.3-5.1); Procalcitonin 0.08 ng/mL (<=0.10)
[2025-01-10 16:03] LABS: Reflex Lactate? Y
== END 2025-01-10 15:57 | disposition home or self-care (01) ==
PROVIDERS: Emergency Provider Emergency Medicine; PCP Family Medicine; Visit Provider Emergency Medicine
DX: R06.02 Shortness of breath (principal); Z94.4 Liver transplant status; J44.9 Chronic obstructive pulmonary disease, unspecified; E11.9 Type 2 diabetes mellitus without complications; F41.9 Anxiety disorder, unspecified; Z86.73 Personal history of transient ischemic attack (TIA), and cerebral infarction without residual deficits; Z79.899 Other long term (current) drug therapy; Z79.51 Long term (current) use of inhaled steroids; K21.9 Gastro-esophageal reflux disease without esophagitis; Z90.710 Acquired absence of both cervix and uterus; Z98.51 Tubal ligation status; Z90.49 Acquired absence of other specified parts of digestive tract; J40 Bronchitis, not specified as acute or chronic; R93.89 Abnormal findings on diagnostic imaging of other specified body structures
CPT/HCPCS: 71275; 80053; 81001; 83605; 84145; 85025; 85379; 85610; 85730; 87040; 87086; 87088; 87631; 93005; 94640; 96361; 96374; 96375; 99285; Q9967; A4216

== ENCOUNTER → 2025-01-25 | Outpatient (CLI) | payer MEDICARE, MEDICAID, SELFPAY ==
[2025-01-25 12:03] LABS: Hematocrit 38.4 % (37-47); Hemoglobin 12.8 g/dL (12.0-15.0); Immature Granulocytes Count 0.010 X10^3/uL (0.0-0.0); Mean Corp Hgb Conc 33.3 g/dL (32-36); Mean Corpuscular Volume 82.6 fL (81-99); Mean Platelet Vol. 10.4 fl (6.2-12.0); NRBC Flagged by Analyzer 0 % (0-5); POSITIVE COUNT YES; Platelet Count 92 K/mm3 (150-450); RBC Distribution Width CV 14.3 % (11.6-14.6); RBC Distribution Width SD 42.3 fl (35.1-43.9); Red Blood Count 4.65 M/mm3 (4.2-5.4); White Blood Count 5.4 K/mm3 (4.4-11.0)
[2025-01-25 13:21] LABS: Ferritin 57 ng/mL (22-378); Free T3 2.7 pg/mL (2.18-3.98); Iron Binding Capacity,Total 294 ug/dL (250-450)
[2025-01-25 13:24] LABS: Ammonia 37.7 umol/L (11-51)
[2025-01-25 13:36] LABS: AST(SGOT) 21 U/L (<=31); Alanine Aminotransfer ALT/SGPT < 5 U/L (<=34); Albumin, Serum 3.9 g/dL (3.5-5.0); Alkaline Phosphatase 94 U/L (35-104); Anion Gap 13 (5-15); BUN 7 mg/dL (4-19); BUN/Creat Ratio 7.8 RATIO (10-20); CRP < 3.00 mg/L (0.0-3.0); Calcium,Total 9.2 mg/dL (7.6-11.0); Carbon Dioxide 21.9 mmol/L (21.0-32.0); Chloride 101 mmol/L (98-108); Globulin 3.3 g/dL (2.2-4.2); Glucose 221 mg/dL (70-99); Iron 80 ug/dL (50-170); Iron Binding Capacity,Unsat 214 ug/dL (228-428); Potassium 4.2 mmol/L (3.3-5.1)
[2025-01-25 14:03] LABS: HIV Nonreactive (Nonreactive)
[2025-01-28 16:09] LABS: Albumin 3.5 g/dL (2.9-4.4); EBV Acute VCA IgM < 36.0 U/mL (0.0-35.9); EBV-VCA IgG > 600.0 U/mL (0.0-17.9); Gamma Globulin 1.6 g/dL (0.4-1.8); HEPATITIS B SURFACE AG Negative (Negative); Hep C Antibodies Non Reactive (Non Reactive); Immunoglobulin A 492 mg/dL (87-352); Immunoglobulin G 1461 mg/dL (586-1602); Immunoglobulin M 115 mg/dL (26-217); Mycoplasma pneum. AB IgM < 770 U/mL (0-769); PROEL- TOTAL PROTEIN 7.0 g/dL (6.0-8.5)
== END | disposition home or self-care (01) ==
PROVIDERS: PCP Family Medicine; Referring Provider Internal Medicine Gastroenterology; Visit Provider Internal Medicine Gastroenterology
DX: E03.9 Hypothyroidism, unspecified (principal); D64.9 Anemia, unspecified; K75.9 Inflammatory liver disease, unspecified
CPT/HCPCS: 80053; 80074; 80197; 82140; 82728; 82784; 83540; 83550; 84165; 84439; 84443; 84481; 85025; 85652; 86140; 86334; 86664; 86665; 86703; 86738

== ENCOUNTER → 2025-02-15 | Outpatient (CLI) | payer MEDICARE, MEDICAID, SELFPAY ==
--- NOTE | 2025-02-15 16:20 | MRI_ITS ---
PROCEDURE: MRCP ABDOMEN WITHOUT CONTRAST 02/15/2025 REASON FOR EXAM: S/P LIVER TRANSPLANT TECHNIQUE: Procedure Code: [id number] Modality: MR Procedure: MRCP ABDOMEN WITHOUT CONTRAST Multiplanar and multisequence images were obtained. CONTRAST: Please see MRI data sheet VOLUME: Please see MRI mL COMPARISON: CT abdomen May 20, 2024. Prior report has not been provided at the time of this interpretation. FINDINGS: Lung bases: There is no consolidation or effusion at the visualized lung bases. Liver: Hepatic length is 13.3 cm. There is no perihepatic fluid. No noncontrast evidence of a hepatic lesion is seen. No intrahepatic biliary ductal dilation. No periportal edema. Gallbladder/biliary: The gallbladder is not visualized. No fluid collection in the gallbladder fossa. Visualization of the biliary tree is compromised by motion artifact on the MRCP source images. What appears to be the cystic duct remnant is distended up to 13.6 mm of indeterminate significance. This may indicate a stenosis. The common hepatic duct is 5.9 mm. The common bile duct is approximately 8.3 mm in diameter proximally. The mid common bile duct is approximately 5.9 mm. There is no abrupt truncation of the distal common bile duct to suggest an impacted stone. There is no conclusive evidence of choledocholithiasis. Fine detail evaluation is compromised by motion artifact. Pancreas: Appearance of the pancreas is unremarkable. There is no pancreatic interstitial edema or peripancreatic inflammation. No peripancreatic fluid collection. The pancreatic duct is not visualized but does not appear dilated. No MRCP evidence to suggest pancreas divisum. Spleen: The spleen measures 15.5 x 14.6 cm. Intra splenic flow voids are noted which may indicate elevated vascularity to the spleen of indeterminate cause. Adrenals: The adrenal glands are unremarkable. Kidneys/ureters: There is no hydronephrosis. No perinephric fluid. Gastrointestinal: No hiatal hernia. The stomach is not sufficiently distended to evaluate wall thickening. No appearance of a bowel obstruction within the abdomen. Portions of visualized colon are distended with fecal material which could be correlated for constipation. No pericolonic inflammation is seen. Appendix: The appendix does not appear inflamed. Peritoneal/retroperitoneal: The entire peritoneal cavity is not included. No free fluid is seen within the visualized abdomen. Vascular: The entire heart is not included on this exam. Visualized cardiothoracic ratio is borderline. The abdominal aortic flow void is maintained. The abdominal aortic flow void is not aneurysmal. No periaortic or retroperitoneal hematoma is seen. The portal venous flow void is maintained consistent with portal venous patency. Portal venous direction of flow can not be assessed by this study. There may be gastrohepatic ligament varicosities and possibly a few distal esophageal varicosities. Lymph nodes: No visible pathologic lymphadenopathy within the abdomen by size criteria. Urinary bladder: The urinary bladder is not included on this exam. Soft tissues: No body wall hematoma or soft tissue swelling. Osseous: There is diminished T1 marrow signal throughout the visualized spine which could be seen with underlying anemia. Correlation with hematocrit for confirmation. There is slight anterior vertebral body height loss along the right aspect of L1 and L2 consistent with mild compression fracture deformities, similar to the prior CT. MRI/MRCP Abdomen without Contrast IMPRESSION: There is dilation of the cystic duct remnant of indeterminate significance. No biliary dilation is seen otherwise. No evidence of choledocholithiasis. - Clinical correlation for constipation. - Other incidental findings discussed above. Reading Location: [id number]
== END | disposition home or self-care (01) ==
LOC: OPMRI 15:45
PROVIDERS: PCP Family Medicine; Referring Provider Internal Medicine Gastroenterology; Visit Provider Internal Medicine Gastroenterology
DX: R41.3 Other amnesia (principal); D64.9 Anemia, unspecified
CPT/HCPCS: 74181